=== PATIENT | female | born 1960 | race Caucasian/White ===

== ENCOUNTER → 2017-11-28 14:16 | Outpatient (CLI) | payer MEDICAID, SELFPAY ==
[2017-11-28 17:06] LABS: Absolute Lymphocyte Count 3.31 X10^3/ul (0.83-4.51); Absolute Neutrophil Count 3.1 X10^3/uL (2.0-7.7); Basophil# 0.03 X10^3/uL; Basophil% 0.4 % (0-1); Eosinophil# 0.22 X10^3/uL; Hematocrit 43.7 % (37-47); Hemoglobin 14.7 g/dl (12.0-15.0); Lymphocyte # 3.31 X10^3/ul (4.0); Lymphocyte % 45.3 % (19-41); Mean Corp Hgb Conc 33.6 g/gl (32-36); Mean Corpuscular Hgb 32.7 pg (27.0-32.0); Mean Corpuscular Volume 97.1 fL (81-99); Mean Platelet Vol. 10.7 fl (6.2-12.0); Monocyte# 0.62 X10^3/uL; Monocyte% 8.5 % (0-10); Neutrophil # 3.11 X10^3/uL (2.7-7.7); Neutrophil % 42.5 % (47-70); Platelet Count 229 K/mm3 (150-450); RBC Distribution Width SD 45.5 fl (35.1-43.9); White Blood Count 7.3 K/mm3 (4.4-11.0)
[2017-11-28 17:12] LABS: POSITIVE COUNT NO; POSITIVE DIFFERENTIAL NO; POSITIVE MORPHOLOGY NO
[2017-11-28 17:15] LABS: ALB/GLOB Ratio 0.8 RATIO (0.9-2.4); AST(SGOT) 70 U/L (15-37); Alanine Aminotransfer ALT/SGPT 69 U/L (12-78); Albumin, Serum 3.4 g/dL (3.4-5.0); Alkaline Phosphatase 135 U/L (45-117); Anion Gap 8 (5-15); BUN 6 mg/dL (7-18); BUN/Creat Ratio 9.2 RATIO (10-20); Calcium,Total 8.9 mg/dL (8.5-10.1); Chloride 105 mmol/L (98-107); Creatinine, Serum 0.65 mg/dL (0.55-1.02); EST Glomerular Filtration Rate 100 mL/min (>60); Est Glom Filt Rate - Afr Amer 121 mL/min (>60); Glucose 117 mg/dL (70-110); Potassium 3.6 mmol/L (3.5-5.1); Protein, Total 7.4 g/dL (6.4-8.2); Sodium Level 140 mmol/L (136-145); Thyroid Stim Hormone (TSH) 1.51 uIU/mL (0.358-3.74)
== END ==
PROVIDERS: Family Provider Family Medicine Geriatric Medicine; PCP Family Medicine Geriatric Medicine; Visit Provider Family Medicine Geriatric Medicine
DX: R53.83 Other fatigue (principal); E55.9 Vitamin D deficiency, unspecified; Z13.89 Encounter for screening for other disorder
CPT/HCPCS: 36415; 80053; 84443; 85025

== ENCOUNTER → 2017-12-19 16:09 | Outpatient (CLI) | payer MEDICAID, SELFPAY ==
[2017-12-19 16:47] LABS: Absolute Lymphocyte Count 3.87 X10^3/ul (0.83-4.51); Absolute Neutrophil Count 5.3 X10^3/uL (2.0-7.7); Basophil# 0.01 X10^3/uL; Basophil% 0.1 % (0-1); Eosinophil# 0.16 X10^3/uL; Eosinophils% 1.6 % (0-5); Hematocrit 39.4 % (37-47); Hemoglobin 13.1 g/dl (12.0-15.0); Lymphocyte # 3.87 X10^3/ul (4.0); Lymphocyte % 38.1 % (19-41); Mean Corp Hgb Conc 33.2 g/gl (32-36); Mean Corpuscular Hgb 31.8 pg (27.0-32.0); Mean Corpuscular Volume 95.6 fL (81-99); Mean Platelet Vol. 10.2 fl (6.2-12.0); Monocyte# 0.85 X10^3/uL; Monocyte% 8.4 % (0-10); Neutrophil # 5.25 X10^3/uL (2.7-7.7); Neutrophil % 51.7 % (47-70); Platelet Count 211 K/mm3 (150-450); RBC Distribution Width CV 12.7 % (11.6-14.6); RBC Distribution Width SD 43.5 fl (35.1-43.9); Red Blood Count 4.12 M/mm3 (4.2-5.4); White Blood Count 10.2 K/mm3 (4.4-11.0)
[2017-12-19 16:49] LABS: POSITIVE COUNT NO; POSITIVE DIFFERENTIAL NO; POSITIVE MORPHOLOGY NO
[2017-12-19 17:35] LABS: ALB/GLOB Ratio 0.8 RATIO (0.9-2.4); AST(SGOT) 64 U/L (15-37); Alanine Aminotransfer ALT/SGPT 59 U/L (13-56); Albumin, Serum 2.9 g/dL (3.2-5.0); Alkaline Phosphatase 119 U/L (45-117); Anion Gap 9 (5-15); BUN 14 mg/dL (7-18); BUN/Creat Ratio 11.5 RATIO (10-20); Calcium,Total 7.5 mg/dL (8.5-10.1); Chloride 104 mmol/L (98-107); Creatinine, Serum 1.22 mg/dL (0.55-1.02); EST Glomerular Filtration Rate 49 mL/min (>60); Est Glom Filt Rate - Afr Amer 59 mL/min (>60); Globulin 3.7 g/dL (2.2-4.2); Glucose 108 mg/dL (74-106); Potassium 3.7 mmol/L (3.5-5.1); Protein, Total 6.6 g/dL (6.4-8.2); Sodium Level 138 mmol/L (136-145); Thyroid Stim Hormone (TSH) 1.89 uIU/mL (0.358-3.74)
[2017-12-22 12:57] LABS: Hep C Antibodies 1.4 s/co ratio (0.0-0.9)
== END ==
PROVIDERS: Family Provider Family Medicine Geriatric Medicine; PCP Family Medicine Geriatric Medicine; Visit Provider Family Medicine Geriatric Medicine
DX: I95.9 Hypotension, unspecified (principal); Z13.89 Encounter for screening for other disorder; N39.0 Urinary tract infection, site not specified
CPT/HCPCS: 36415; 80053; 84443; 85025; 86803; 87086; 87088

== ENCOUNTER → 2017-12-19 17:43 | Outpatient (CLI) | payer MEDICAID, SELFPAY | PROVIDERS: Family Provider Family Medicine Geriatric Medicine; PCP Family Medicine Geriatric Medicine; Visit Provider Family Medicine Geriatric Medicine | DX: N39.0 Urinary tract infection, site not specified (principal) | CPT/HCPCS: 87086 ==

== ENCOUNTER → 2018-03-19 16:46 | Outpatient (CLI) | payer MEDICAID, SELFPAY | PROVIDERS: Family Provider Family Medicine Geriatric Medicine; PCP Family Medicine Geriatric Medicine; Visit Provider Family Medicine Geriatric Medicine | DX: B19.20 Unspecified viral hepatitis C without hepatic coma (principal) | CPT/HCPCS: 36415 ==

== ENCOUNTER → 2018-05-14 16:41 | Outpatient (CLI) | payer MEDICAID, SELFPAY | PROVIDERS: Family Provider Family Medicine Geriatric Medicine; PCP Family Medicine Geriatric Medicine; Visit Provider Psychiatry & Neurology Psychiatry | DX: F11.20 Opioid dependence, uncomplicated (principal) ==

== ENCOUNTER → 2018-06-10 12:22 | Outpatient (CLI) | payer MEDICAID, SELFPAY ==
[2018-06-10 14:27] LABS: Amphetamine Urine VISTA NEGATIVE (<1000 ng/mL); Barbiturate Urine VISTA NEGATIVE (< 200 ng/mL); Benzodiazepine Urine VISTA NEGATIVE (< 200 ng/mL); Cocaine Urine VISTA NEGATIVE (< 300 ng/mL); Ecstacy Urine VISTA NEGATIVE (< 500 ng/mL); Methadone Urine VISTA NEGATIVE (< 300 ng/mL); PCP Urine VISTA NEGATIVE (< 25 ng/mL); THC Urine VISTA NEGATIVE (< 50 ng/mL); Vista UDS pH Range 7
== END ==
PROVIDERS: Family Provider Family Medicine Geriatric Medicine; PCP Family Medicine Geriatric Medicine; Visit Provider Psychiatry & Neurology Psychiatry
DX: F11.20 Opioid dependence, uncomplicated (principal)
CPT/HCPCS: 36415; 80307

== ENCOUNTER → 2018-07-29 14:04 | Outpatient (CLI) | payer MEDICAID, SELFPAY | PROVIDERS: Family Provider Family Medicine Geriatric Medicine; PCP Family Medicine Geriatric Medicine; Referring Provider Nurse Practitioner Acute Care; Visit Provider Nurse Practitioner Acute Care | DX: J44.9 Chronic obstructive pulmonary disease, unspecified (principal) | CPT/HCPCS: 87070; 87077; 87186; 87205 ==

== ENCOUNTER → 2018-08-05 15:47 | Outpatient (CLI) | payer MEDICAID, SELFPAY ==
--- OUTSIDE RECORDS SUMMARY | 2018-05-28 15:26 | XMS RPT_ITS ---
:1960 Author Organization OHIP Support Name Relationship Address Phone D Unavailable Unavailable April Unavailable [address] + [place] [address] D Unavailable Unavailable April Unavailable [address] + [place] [address] TIFFANY PEÑA Unavailable [address] [place] [address] April Unavailable Unavailable + D Unavailable Unavailable April Unavailable [address] + [place] [address] TIFFANY PEÑA Unavailable [address] [place] [address] April Unavailable Unavailable + D Unavailable Unavailable April Unavailable [address] + [place] [address] D Unavailable Unavailable April Unavailable [address] + [place] [address] D Unavailable Unavailable April Unavailable [address] + [place] [address] D Unavailable Unavailable Unavailable April Unavailable [address] + [place] [address] TIFFANY PEÑA Unavailable [address] [place] [address] April Unavailable Unavailable + D Unavailable Unavailable Unavailable April Unavailable [address] + [place] [address] April Unavailable [address] + [place] [address] UE Unavailable Unavailable Unavailable JENITIFFANY MAGUIRE Unavailable [address] [place] [address] April Unavailable Unavailable + April Unavailable [address] + [place] [address] UE Unavailable Unavailable Unavailable Care Team Providers Name Role Phone NO, DOCTOR ON Referring Unavailable NO, DOCTOR ON Consulting Unavailable KIA BURNETT MD Admitting Unavailable KIA BURNETT MD Attending Unavailable KIA BURNETT MD Primary Care Unavailable ALLAN, DR WALLACE Suarez Admitting Unavailable ALLAN, DR WALLACE Suarez Attending Unavailable ALLAN, DR WALLACE Suarez Primary Care Unavailable KAVON CAROLINA MD Referring Unavailable KAVON CAROLINA MD Consulting Unavailable PROVIDER, UNKNOWN Consulting Unavailable PROVIDER, UNKNOWN Consulting Unavailable [facility] Unavailable [facility] Attending Unavailable [facility] Primary Care Unavailable NO, DOCTOR ON Consulting Unavailable ALLAN, DR WALLACE Suarez Admitting Unavailable ALLAN, DR WALLACE Suarez Attending Unavailable ALLAN, DR WALLACE Suarez Primary Care Unavailable KAVON CAROLINA MD Consulting Unavailable KAVON CAROLINA MD Referring Unavailable PROVIDER, UNKNOWN Consulting Unavailable PROVIDER, UNKNOWN Consulting Unavailable Ginny Wilfredo Attending Unavailable Ge, Kavon Chi Primary Care Unavailable Ginny, Wilfredo Attending Unavailable Ge, Kavon Chi Primary Care Unavailable Ginny, Wilfredo Referring Unavailable Ge, Kavon Chi Attending Unavailable Ge, Kavon Chi Primary Care Unavailable Eg, Kavon Chi Attending Unavailable Ge, Kavon Chi Primary Care Unavailable Ge, Kavon Chi Referring Unavailable Ge, Kavon Chi Attending Unavailable Ge, Kavon Chi Primary Care Unavailable Ge, Kavon Chi Attending Unavailable Ge, Kavon Chi Primary Care Unavailable Ge, Kavon Chi Attending Unavailable Ge, Kavon Chi Referring Unavailable Ge, Kavon Chi Primary Care Unavailable Ge, Kavon Chi Attending Unavailable Ge, Kavon Chi Primary Care Unavailable Ginny, Wilfredo Attending Unavailable Ge, Kavon Chi Primary Care Unavailable Ginny, Wilfredo Referring Unavailable Ge, Kavon Chi Attending Unavailable Ge, Kavon Chi Primary Care Unavailable PROBLEMS PROBLEMS DATE TYPE CONDITION / CODE ATTENDING STATUS SOURCE 05/19/2018 Unknown F11.20 - Opioid Ginny, Wilfredo Active [facility] dependence, Community uncomplicated / Hospital F11.20(ICD-10) Repository 04/17/2018 Unknown B19.20 - Ge, Kavon Chi Active [place] Unspecified viral Community hepatitis C without Hospital hepatic coma / Repository B19.20(ICD-10) 12/20/2017 Unknown N39.0 - Urinary Ge, Kavon Chi Active [place] tract infection, Community site not specified Hospital / N39.0(ICD-10) Repository 12/19/2017 Unknown I95.9 - Ge, Kavon Chi Active [facility] Hypotension, Community unspecified / Hospital I95.9(ICD-10) Repository 12/19/2017 Unknown Z13.89 - Encounter Ge, Kavon Chi Active [place] for screening for Community other disorder / Hospital Z13.89(ICD-10) Repository 06/25/2017 Unknown ACUTE KIDNEY Ge, Kavon Chi Active [facility] FAILURE, Community UNSPECIFIED / Hospital N17.9(ICD-10) Repository 06/14/2017 Admitting Sepsis, unspecified [place], KIA Samuel Diagnosis organism / [facility] A419(ICD-10) Hospital Repository 06/14/2017 Principle Sepsis, unspecified [place], KIA Samuel Diagnosis organism / [facility] A419(ICD-10) Hospital Repository 06/14/2017 Secondary Pneumonia, [place], KIA Active Nadir Samuel Diagnosis unspecified [facility] organism / Hospital J189(ICD-10) Repository 06/14/2017 Secondary Severe sepsis [place], KIA Samuel Diagnosis without septic [facility] shock / Hospital R6520(ICD-10) Repository 06/14/2017 Secondary Acidosis / [place], KIA Active Nadir Samuel Diagnosis E872(ICD-10) [facility] Hospital Repository 06/14/2017 Secondary Rheumatoid [place], KIA Active Nadir Samuel Diagnosis arthritis, [facility] unspecified / Hospital M069(ICD-10) Repository 06/14/2017 Secondary Other specified [place], KIA Samuel Diagnosis anxiety disorders / [facility] F418(ICD-10) Hospital Repository 06/14/2017 Secondary Chronic obstructive [place], KIA Samuel Diagnosis pulmonary disease [facility] with (acute) Hospital exacerbation / Repository J441(ICD-10) 08/26/2017 Unknown OPIOID DEPENDENCE, Wilfredo Gross Active [place] UNCOMPLICATED / Community F11.20(ICD-10) Hospital Repository PROCEDURES PROCEDURES No Procedure Records FoundRESULTS RESULTS EMERGENCY REPORT Observed: 05/23/2018 Status: F Source: NADIR FOSTERJONAS 9:53 PM [facility] EMERGENCY ROOM REPORT NAME ACCOUNT SEX AGE ADMIT DISCHARGE PT MED. RECORD# NUMBER DATE DATE TYPE JENI, [id number] F 57 05/12/18 05/12/18 3 VERO Hunt [id number] ROOM: ER DATE OF : 1960 DICTATING PHYSICIAN: Wallace Caicedo CHIEF COMPLAINT/HISTORY OF PRESENT ILLNESS: The patient comes in complaining of right arm and shoulder pain for 6 days. She strained it when she was grabbing a rug and she had a burning pain. She has a history of pulmonary embolism. She has had no recent travel, trauma or surgeries. She denies any chest pain or shortness of breath. I do not believe she has a pulmonary embolism. PAST MEDICAL HISTORY: She has a history of depression and anxiety. She has COPD. She is in pain management. PAST SURGICAL HISTORY: Hysterectomy, gallbladder surgery, carpal tunnel syndrome, upper lobe of lung removed. SOCIAL HISTORY: She does smoke. She denies alcohol use. REVIEW OF SYSTEMS: Eight systems reviewed and negative except as mentioned above. PHYSICAL EXAMINATION: She is an awake, alert and oriented female in no acute distress. She is afebrile, blood pressure 118/103, pulse 117 , respirations 20, pulse ox 94% on room air. Head is normocephalic, atraumatic. Eyes: Pupils are equal, round, and reactive to light. Extraocular muscles are intact. Nares are patent. Throat has good oral moisture. Uvula is midline. Neck is supple without petechiae or rash. Heart rate is regular without murmur. S1 equals S2, and no S3 or S4 appreciated. Lungs are clear to auscultation bilaterally. No rales, rhonchi or retractions. Abdomen is soft and nontender, nondistended. Skin is warm and dry. The patient has full range of motion of the right shoulder. She has generalized tenderness. Whenever she extends her shoulder, I think she has strain of her shoulder. She has no swelling, ecchymosis or bruising. EMERGENCY DEPARTMENT COURSE AND TREATMENT: I do not believe she has pulmonary embolism. I did review OARRS , which is extensive. She takes Suboxone. DIAGNOSIS: Acute right shoulder strain. PLAN/DISPOSITION: I was going to write her for Ultra, but she says that she cannot take that, but she can take Percocet. I will give her two Percocet and she will be Page 1 of 2 VERO PEÑA Emergency Room Report discharged in stable condition. She has a sling and was told to use the sling and do range of motion exercises, 10 reps every hour. They are demonstrated. Dictated By: Wallace Caicedo DO 05/13/18 01:05 JOB #: [id number] Transcribed By: maria dolores 06:38 Electronically signed by: INOCENCIA Caicedo D.O. 05/23/18 21:53 Page 2 of 2 V[place] PEÑ[place] Emergency Room Report URINE DRUG SCREEN Collected: 05/14/2018 Status: P Source: [place] (VISTA) 4:43 PM [facility] REPOSITORY Order Comment: List of Drugs Taken or Suspected? UNK TYPE CODE TESTS RESULT OUT OF RANGE REFERENCE UNITS LAB L505.0075 Normal TO BE CONFIRMED Result Comment: CONFIRMATORY TESTING FOR ALL POSITIVE URINE DRUG SCREENRESULTS WILL ONLY BE SENT OUT UPON PHYSICIAN ORDER.VISTA Urine Drug Screen methods provide only preliminaryanalytical test results. A more specific alternate chemicalmethod must be used in order to obtain a confirmedanalytical result. Gas chromatography/mass spectrometery(GC/MS) is the preferred confirmatory method. Clinicalconsideration and professional judgement should be appliedto any drug of abuse test result, particularly whenpreliminary positive results are used.URINE TCA TESTING MUST BE ORDERED SEPARATELY. USE TESTMNEMONIC: UTCA Performed By: #### L505.5000 ####[facility] [address] [place], [address] MISCELLANEOUS LAB Collected: 03/19/2018 Status: F Source: [place] PROCEDURE 4:52 PM [facility] REPOSITORY Order Comment: Comments: [id number],SERUM,FROZENTest(s) Ordered: [id number],SERUM,FROZEN TYPE CODE TESTS RESULT OUT OF RANGE REFERENCE UNITS LAB L801.1541 Normal [facility] LAB TEST Result Comment: TEST RESULT UNITS REFERENCE INTERVALHCV RNA by PCR, Qn Rfx GenoHepatitis C Quantitation HCV Not Detected IU/mLHCV log10 Unable to calculate result since non-numeric resultobtained for component test.Test Information: The quantitative range of this assay is 15 IU/mL to 100million IU/mL.HCV Genotype Not indicated TESTING PERFORMED AT [facility]. ORIGINAL REPORT ON FILE IN LAB CONTAINS ADDITIONAL TEST SITE INFORMATION. Performed By: #### L801.1541 ####[facility] [address] [facility] [place], [address] Observed: 12/19/2017 Status: F Source: [place] CULTURE, URINE 5:44 PM [facility] REPOSITORY Urine CultureBelow infection level. ORGANISM 1: GPC Poss Enterococcus spColony Count 1000-10,000 Performed By: #### M100.0650 ####[facility] [address] [facility] [place], [address] CBC W/DIFF, AUTOMATED Collected: 12/19/2017 Status: F Source: [place] 4:10 PM [facility] REPOSITORY TYPE CODE TESTS RESULT OUT OF RANGE REFERENCE UNITS LAB L100.1000 Normal 4.4-11.0 K/mm3 WBC 10.2 LAB L100.1200 Low 4.2-5.4 M/mm3 RBC 4.12 LAB L100.1300 Normal 12.0-15.0 g/dl HGB 13.1 LAB L100.1400 Normal 37-47 % HCT 39.4 LAB L100.1500 Normal 81-99 fL MCV 95.6 LAB L100.1600 Normal 27.0-32.0 pg MCH 31.8 LAB L100.1700 Normal 32-36 g/gl MCHC 33.2 LAB L100.1810 Normal 11.6-14.6 % RDW 12.7 CV LAB L100.1820 Normal 35.1-43.9 fl RDW 43.5 SD LAB L100.1900 Normal 150-450 K/mm3 PLT 211 LAB L100.2000 Normal 6.2-12.0 fl MPV 10.2 LAB L100.2100 Normal 47-70 % NEUT% 51.7 LAB L100.2200 Normal 19-41 % LY% 38.1 LAB L100.2300 Normal 0-10 % MONO% 8.4 LAB L100.2400 Normal 0-5 % EO% 1.6 LAB L100.2500 Normal 0-1 % BASO% 0.1 LAB L100.2550 Normal 0.0-0.9 % IM 0.100 GRAN % Result Comment: IG% - Immature Granulocytes (promyelocytes, myelocytes andmetamyelocytes) > 1% indicates that a LEFT SHIFT is Present. LAB L100.2620 Normal 2.0-7.7 X10 3/uL Absolute Neut 5.3 LAB L100.2720 Normal 0.83-4.51 X10 3/ul Absolute Lymph 3.87 Performed By: #### L100.0100 ####[facility] [address] [place], [address] COMPREHENSIVE METABOLIC Collected: 12/19/2017 Status: F Source: [facility] 4:10 PM [facility] REPOSITORY TYPE CODE TESTS RESULT OUT OF RANGE REFERENCE UNITS LAB L501.0100 High 74-106 mg/dL GLU 108 Result Comment: Fasting Glucose result from 100 to 125 mg/dLsuggests IMPAIRED HOMEOSTASIS per A.D.A. criteria.Please note revised GLUCOSE reference range enpxmpdsv48/02/2018. LAB L501.1000 Normal 7-18 mg/dL BUN 14 LAB L501.1100 High 0.55-1.02 mg/dL CREAT,SERUM 1.22 Result Comment: The validity of the calculated GFR AND GFRAA in patients over70 years has not been determined. Clinical correlation isessential. LAB L501.1110 Low >60 mL/min EST GFR 49 Result Comment: Non- GFR Calc LAB L501.1115 Low >60 mL/min EST GFR - AA 59 Result Comment: GFR Calc LAB L501.1300 Normal 10-20 RATIO BUN/CRE 11.5 LAB L501.1500 Normal 6.4-8.2 g/dL T PROT 6.6 LAB L501.1800 Low 3.2-5.0 g/dL ALB 2.9 LAB L501.1950 Normal 2.2-4.2 g/dL GLOB 3.7 LAB L501.2000 Low 0.9-2.4 RATIO A/G 0.8 LAB L501.2200 Low 8.5-10.1 mg/dL CA 7.5 LAB L501.4100 High 15-37 U/L AST 64 LAB L501.4305 High 45-117 U/L ALK P 119 LAB L501.4405 High 13-56 U/L ALT 59 Result Comment: Please note revised ALT reference range rakhfyfrc33/28/2018. LAB L501.4600 Normal 0.20-1.00 mg/dL T BILI 0.30 LAB L501.5300 Normal 136-145 mmol/L NA 138 LAB L501.5600 Normal 3.5-5.1 mmol/L K 3.7 LAB L501.5900 Normal 98-107 mmol/L CL 104 LAB L501.6100 Normal 21.0-32.0 mmol/L CO2 25.0 LAB L501.6200 Normal 5-15 GAP 9 Performed By: #### L500.4050, L501.9520 ####[facility] [address] [place], [place], [id number] THYROID STIM HORMONE Collected: 12/19/2017 Status: F Source: [place] (TSH) 4:10 PM [facility] REPOSITORY TYPE CODE TESTS RESULT OUT OF RANGE REFERENCE UNITS LAB L501.9520 Normal 0.358-3.74 uIU/mL TSH 1.89 Performed By: #### L500.4050, L501.9520 ####[facility] [address] [place], [place], [address] HEPATITIS C ANTIBODIES Collected: 12/19/2017 Status: F Source: [place] 4:10 PM [facility] REPOSITORY TYPE CODE TESTS RESULT OUT OF RANGE REFERENCE UNITS LAB L3100.0650 High 0.0-0.9 s/co ratio HEP C 1.4 AB Result Comment: Negative: < 0.8 Indeterminate: 0.8 - 0.9 Positive: > 0.9 The CDC recommends that a positive HCV antibody result be followed up with a HCV Nucleic Acid Amplification test (363150) .Performed at: - [facility] [address] [id number] Director: Henriuqe Sellers PhD, Phone: [phone] Performed By: #### L3100.0625 ####[facility] (refer to report for specific site)refer to report for address and phone number CBC W/DIFF, AUTOMATED Collected: 11/28/2017 Status: F Source: [place] 2:17 PM [facility] REPOSITORY TYPE CODE TESTS RESULT OUT OF RANGE REFERENCE UNITS LAB L100.1000 Normal 4.4-11.0 K/mm3 WBC 7.3 LAB L100.1200 Normal 4.2-5.4 M/mm3 RBC 4.50 LAB L100.1300 Normal 12.0-15.0 g/dl HGB 14.7 LAB L100.1400 Normal 37-47 % HCT 43.7 LAB L100.1500 Normal 81-99 fL MCV 97.1 LAB L100.1600 High 27.0-32.0 pg MCH 32.7 LAB L100.1700 Normal 32-36 g/gl MCHC 33.6 LAB L100.1810 Normal 11.6-14.6 % RDW 13.0 CV LAB L100.1820 High 35.1-43.9 fl RDW 45.5 SD LAB L100.1900 Normal 150-450 K/mm3 PLT 229 LAB L100.2000 Normal 6.2-12.0 fl MPV 10.7 LAB L100.2100 Low 47-70 % NEUT% 42.5 LAB L100.2200 High 19-41 % LY% 45.3 LAB L100.2300 Normal 0-10 % MONO% 8.5 LAB L100.2400 Normal 0-5 % EO% 3.0 LAB L100.2500 Normal 0-1 % BASO% 0.4 LAB L100.2550 Normal 0.0-0.9 % IM 0.300 GRAN % Result Comment: IG% - Immature Granulocytes (promyelocytes, myelocytes andmetamyelocytes) > 1% indicates that a LEFT SHIFT is Present. LAB L100.2620 Normal 2.0-7.7 X10 3/uL Absolute Neut 3.1 LAB L100.2720 Normal 0.83-4.51 X10 3/ul Absolute Lymph 3.31 Performed By: #### L100.0100 ####[facility] [address] [place], [address] COMPREHENSIVE METABOLIC Collected: 11/28/2017 Status: F Source: [place] BOWERS 2:17 PM [facility] REPOSITORY TYPE CODE TESTS RESULT OUT OF RANGE REFERENCE UNITS LAB L501.0100 High 70-110 mg/dL GLU 117 Result Comment: Fasting Glucose result from 110 to <126 mg/dLsuggests IMPAIRED HOMEOSTASIS per A.D.A. criteria. LAB L501.1000 Low 7-18 mg/dL BUN 6 LAB L501.1100 Normal 0.55-1.02 mg/dL CREAT,SERUM 0.65 Result Comment: The validity of the calculated GFR AND GFRAA in patients over70 years has not been determined. Clinical correlation isessential. LAB L501.1110 Normal >60 mL/min EST GFR 100 Result Comment: Non- GFR Calc LAB L501.1115 Normal >60 mL/min EST GFR - 121 AA Result Comment: GFR Calc LAB L501.1300 Low 10-20 RATIO BUN/CRE 9.2 LAB L501.1500 Normal 6.4-8.2 g/dL T PROT 7.4 LAB L501.1800 Normal 3.4-5.0 g/dL ALB 3.4 Result Comment: Please note revised Albumin AND Globulin reference rangeeffective 2017. LAB L501.1950 Normal 2.2-4.2 g/dL GLOB 4.0 LAB L501.2000 Low 0.9-2.4 RATIO A/G 0.8 LAB L501.2200 Normal 8.5-10.1 mg/dL CA 8.9 LAB L501.4100 High 15-37 U/L AST 70 LAB L501.4305 High 45-117 U/L ALK P 135 LAB L501.4405 Normal 12-78 U/L ALT 69 LAB L501.4600 Normal 0.20-1.00 mg/dL T BILI 0.20 LAB L501.5300 Normal 136-145 mmol/L NA 140 LAB L501.5600 Normal 3.5-5.1 mmol/L K 3.6 LAB L501.5900 Normal 98-107 mmol/L CL 105 LAB L501.6100 Normal 21.0-32.0 mmol/L CO2 27.0 LAB L501.6200 Normal 5-15 GAP 8 Performed By: #### L500.4050, L501.9520 ####[facility] [address] [place], [address] THYROID STIM HORMONE Collected: 11/28/2017 Status: F Source: [place] (TSH) 2:17 PM [facility] REPOSITORY TYPE CODE TESTS RESULT OUT OF RANGE REFERENCE UNITS LAB L501.9520 Normal 0.358-3.74 uIU/mL TSH 1.51 Performed By: #### L500.4050, L501.9520 ####[facility] [address] [place], [address] KIDNEY AND BLADDER Observed: 11/22/2017 Status: F Source: [place] 4:43 PM [facility] REPOSITORY [facility] [address] [place], [place] [address] and BladderMR#: [id number] Acct: [id number]: AURORA PEÑAKwesi Hunt Rep #: [id number]: 1960 F 56 From: Sami Jones MDPCP: Kavon Carolina MD, Chi Status: REG CLIStudy: Kidney and Bladder Date of Exam: Exam# [id number] Ordering Dr: Kavon Carolina. MDSTUDY: RENAL ULTRASOUND - COMPLETEREASON FOR EXAM: Female, 56 years old. Urinary retentionTECHNIQUE: Ultrasound evaluation of the kidneys was performed withreal-time and static mendez-scale imaging.COMPARISON: CT June 27, 2016 FINDINGS:RIGHT KIDNEY: Normal location of the right kidney, which is normal insize. The right kidney measures 11.4 x 4.7 x 5.4 cm. There is a normalcortex of the right kidney. The renal cortex measures 1.8 cm. There is noright renal mass or cyst. 11 mm calculus of the right kidney. There is noright hydronephrosis.DISTAL RIGHT URETER: There is non-visualization of the distal rightureter. There is no demonstrated right ureterovesical junction calculus.There is a visualized right ureteral jet.LEFT KIDNEY: Normal location of the left kidney, which is normal in size.The left kidney measures 10.2 x 5.1 x 5.6 cm. There is a normal cortex ofthe left kidney. The renal cortex measures 1.9 cm. There is no left renalmass or cyst. Clustered subcentimeter calcifications of the kidney. Thereis no left hydronephrosis.DISTAL LEFT URETER: There is non-visualization of the distal left ureter.There is no demonstrated left ureterovesical junction calculus. There is avisualized left ureteral jet.BLADDER: The distended urinary bladder has a volume of 152 ml. The emptyurinary bladder has a volume of 13 ml. There is a normal wall thicknessof the distended urinary bladder. There is no demonstrated mass withinthe urinary bladder. There are no demonstrated bladder calculi. ORDER #: [id number] US/Kidney and BladderIMPRESSION:There are bilateral renal calculi. There is no evidence for an obstruction.There is no hydronephrosis.Electronically Signed:Sami Jones MD at 20:27 ESTTel , Service support , HP: Kavon Carolina MD Billet Heater:Signed EMERGENCY DEPARTMENT Observed: 11/09/2017 Status: F [facility]15 AM [facility] EMERGENCY DEPARTMENT SUMMARY NAME NUMBER SEX AGE ADMIT DISC TYPE MED.RECORD# JENI Hunt [id number] F 56 11/06/17 E.R. [id number] ROOM:- DATE OF :1960 PHYSICIAN NO.:[id number] PHYSICIAN NAME:INOCENCIA Caicedo D.O. PHYSICIAN:GE JACOBSON MD HISTORY OF PRESENT ILLNESS: The patient came in. The patient earlier today was scared. She thought she saw somebody in her house. However, it was windy and the way the lights were moving she thought she saw someone so she got scared and called the police. When the police arrived, she realized there was nobody there. She does have severe anxiety, and she became very anxious and requested to go to the hospital. She also complained of some right ear pain and was anxious when she came in. When she came in, she was awake, alert and oriented. Her thought process was linear and goal- directed. She was anxious. She did take two 0.5 mg Ativan tablets prior to arrival, and she comes to the Emergency Department. PAST MEDICAL HISTORY: She does have a history of COPD, for which she takes home oxygen. She has a history of depression, which she has been hospitalized for, PTSD, and questionable bipolar disorder. She says she does not, and her daughter says she does. She also has a history of sepsis and pulmonary embolism. PAST SURGICAL HISTORY: She has a history of carpal tunnel surgery, appendectomy, cholecystectomy and hysterectomy. SOCIAL HISTORY: She does smoke. She denies alcohol use. REVIEW OF SYSTEMS: Ten systems were reviewed and negative except as mentioned above. PHYSICAL EXAMINATION: She is afebrile. Blood pressure 149/ 95, pulse 117, respirations 20, and pulse oximetry 95% on room air. Head is normocephalic, atraumatic. Eyes: Pupils are equal, round and reactive to light. Extraocular muscles are intact. Nares are patent. Throat has adequate oral moisture. Uvula is midline. Neck is supple without petechiae or rash. Heart without murmur. S1 equal to S2. No S3 or S4 appreciated. Lungs are clear to auscultation bilaterally. No rales, rhonchi or retractions. Abdomen is soft, nontender and nondistended. Skin is warm and dry. The patient's right ear was unremarkable to my interpretation. EMERGENCY DEPARTMENT COURSE AND TREATMENT: While she was here, she realized there was nobody there. Her daughter came in and was concerned because she was saying things that were not true, but now at this time she is not delusional. She is not homicidal. She is not suicidal. She says she will come back if there are any issues. Her daughter is here and is going to stay with her. Her daughter appears very kind and caring and concerned about her and states she would bring her back. I did want to get a blood gas and get some generalized bloodwork on her, but she refused this. At this time, I do not think I can pink slip her because she is not homicidal or suicidal, and she seems to be able to make rational decisions. She had a 3 on her SAD form, but actually it should be a 2 because she is . [facility]. She has an appointment next Saturday. DIAGNOSES: 1. Delusional episode, cause not clear - improved at this time. She does have the issue of depression. She is not homicidal or suicidal. 2. Ear pain, cause not clear. PLAN/DISPOSITION: She will be discharged in stable condition. D: Wallace Caicedo DO TD: 00:39 JOB #: [id number] Transcribed by: shannon 11/06/2017 15: 56 DD: DT: JOB #: ELECTRONICALLY SIGNED BY: INOCENCIA Caicedo D.O. 11/09/17 03:15 Transcribed by: MARIA DOLORES 11/06/17 16:57 URINE DRUG SCREEN Collected: 10/17/2017 Status: F Source: [place] (VISTA) 2:12 PM [facility] REPOSITORY Order Comment: Comments: [id number] BUPRENORPHINEList of Drugs Taken or Suspected? UNK TYPE CODE TESTS RESULT OUT OF RANGE REFERENCE UNITS LAB L505.0075 Normal TO BE CONFIRMED Result Comment: CONFIRMATORY TESTING FOR ALL POSITIVE URINE DRUG SCREENRESULTS WILL ONLY BE SENT OUT UPON PHYSICIAN ORDER.VISTA Urine Drug Screen methods provide only preliminaryanalytical test results. A more specific alternate chemicalmethod must be used in order to obtain a confirmedanalytical result. Gas chromatography/mass spectrometery(GC/MS) is the preferred confirmatory method. Clinicalconsideration and professional judgement should be appliedto any drug of abuse test result, particularly whenpreliminary positive results are used.URINE TCA TESTING MUST BE ORDERED SEPARATELY. USE TESTMNEMONIC: [facility] LAB L505.5005 Normal VISTA UDS PH 5 LAB L505.5015 Normal <1000 AMPHETAMINES NEGATIVE ng/mL LAB L505.5025 Normal < 200 BARBITIURATES NEGATIVE ng/mL LAB L505.5035 Normal < 200 BENZODIAZIPINE NEGATIVE ng/mL LAB L505.5045 Normal < 300 COCAINE NEGATIVE ng/mL LAB L505.5055 Normal < 500 ECSTACY NEGATIVE ng/mL LAB L505.5065 Normal < 300 METHADONE NEGATIVE ng/mL LAB L505.5075 Normal < 300 OPIATES NEGATIVE ng/mL LAB L505.5085 Normal < 25 PCP NEGATIVE ng/mL LAB L505.5095 Normal < 50 THC NEGATIVE ng/mL Performed By: #### L505.5000 ####[facility] [id number] [place], [place], [id number] DRUG SCR,NA BUPRO / Collected: 10/17/2017 Status: F Source: SAUNDRA FRIENDS 2:12 PM [facility] REPOSITORY TYPE CODE TESTS RESULT OUT OF REFERENCE UNITS RANGE LAB L3350.040 Normal 1 MCG/ML 0 CODEINE NEGATIVE LAB L3350.060 Normal 2 MCG/ML 0 HYDROCODONE NEGATIVE LAB L3350.070 Normal 2 MCG/ML 0 OXYCODONE NEGATIVE LAB L3350.080 Normal 2 MCG/ML 0 AMI/NORTRIPTYLI POSITIVE LAB L3350.085 Normal 2 MCG/ML 0 DEMEROL NEGATIVE LAB L3350.090 Normal 2 MCG/ML 0 DOXEPIN NEGATIVE LAB L3350.110 Normal 2 MCG/ML 0 METHADONE NEGATIVE LAB L3350.120 Normal 1 MCG/ML 0 PHENMETRAZINE NEGATIVE LAB L3350.130 Normal 1 MCG/ML 0 PHENOTHIAZINES NEGATIVE LAB L3350.140 Normal 0.2 MCG/ML 0 QUININE NEGATIVE LAB L3350.150 Normal 1 MCG/ML 0 TRAMADOL NEGATIVE LAB L3350.160 Normal 2 MCG/ML 0 HYDROXYZINE NEGATIVE LAB L3350.230 Normal 300 NG/ML 0 EMIT OPIATE NEGATIVE LAB L3350.240 Normal 1000 NG/ML 0 EMIT AMPHETAMIN NEGATIVE LAB L3350.250 Normal 300 NG/ML 0 EMIT COCAINE NEGATIVE LAB L3350.290 Normal 5 NG/ML NG/ML 0 EMIT BUPRO POSITIVE Result Comment: EIA BUPRENORPHINE WITH PANEL 270 ng/mL Cutoff: 5 ng/mL Performed By: #### L3350.0200 ####[facility] [id number] [place], [place], [address] DISCHARGE SUMMARY Observed: 06/19/2017 Status: F Source: NADIR SAMUEL 11:52 PM [facility] DISCHARGE SUMMARY NAME NUMBER SEX AGE ADMIT DISC TYPE MED.RECORD# VERO PEÑA [id number] F 56 06/14/2017 06/16/2017 I/P [id number] ROOM:310NM DATE OF :1960 PHYSICIAN NO.:[id number] PHYSICIAN NAME: PHYSICIAN:BRIANNE JORGE CNP SERVICE: Hospitalist, Dr. Burnett. ADMITTING DIAGNOSIS/REASON FOR ADMISSION: Shortness of breath, chronic obstructive pulmonary disease exacerbation. FINAL DIAGNOSES: 1. Acute exacerbation of chronic obstructive pulmonary disease. 2. Clinical community-acquired pneumonia. 3. Severe sepsis, resolved. 4. Leukocytosis, resolved. 5. Lactic acidosis, resolved. 6. Elevated transaminases. 7. Rheumatoid arthritis, an acute exacerbation. 8. Depression, anxiety. CONSULTATIONS AND PROCEDURES: None. HISTORY OF PRESENT ILLNESS: This is a pleasant 56-year-old female with a significant past medical history of COPD on continuous home O2 at 4 L per minute via nasal cannula. She does wear this continuously. The patient states that she has been in her normal state of health up until approximately 3 weeks ago. She recently moved and believes that her nebulizer and aerosol medications were accidentally thrown out in the move. Typically she uses her nebulizer 1 to 3 times per day. Subsequently, over the past few weeks she had noted increased shortness of breath, dyspnea upon exertion, increased sputum production, fatigue, fever, chills, which progressively worsened over the past 3 days. She denied chest pain, palpitations. No nausea, vomiting, abdominal pain , or diarrhea. She denied recent hospitalization, exposure to ill contacts, or recent antibiotic therapy. No recent travel. 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 However, she denied hemoptysis, chest pain, or palpitations. ED evaluation demonstrated a qSOFA score of 1 for tachypnea; however, she was tachycardic and had a significantly elevated lactate at 37.5. X-ray demonstrated no definitive infiltrate or consolidation; however, her clinical presentation does raise suspicion for community-acquired pneumonia. After multiple aerosols, IV corticosteroids, and IV fluid resuscitation, the patient experienced only mild improvement, therefore she was admitted for further management and evaluation. DISCHARGE PHYSICAL EXAMINATION: Vital signs: Temperature 98.4, blood pressure 101/60, heart rate 95, respiratory rate 16, pulse oximetry 97% on 4 L nasal cannula. Constitutional: Awake, alert, nontoxic in appearance, in no acute distress. Cardiovascular: Regular rate and rhythm. Normal S1 and S2. No gallops, murmurs , or rubs are appreciated. Respiratory: Symmetric with respiration, even and unlabored, clear to auscultation. No significant wheezes, rhonchi, or rales. She was slightly diminished, specifically in the posterior bases. Abdomen: Soft, nontender with active bowel sounds in all 4 quadrants. No hepatosplenomegaly. Extremities: Capillary refill is brisk. There is no clubbing, cyanosis, or edema. Calves are supple, nontender, with no palpable cords. Neurologic: No focal deficits, motor sensory is intact. She is alert and oriented x4. HOSPITAL COURSE: The patient was admitted on telemetry, serial troponins were obtained and all within normal limits. She was continued on IV azithromycin and Rocephin for presumed clinical community-acquired pneumonia. IV hydration for her acute kidney injury likely related to her lactic acidosis and aggressive pulmonary hygiene. The patient had significant improvement over the next 24 hours. She verbalized that she was at her baseline. Her tachycardia had resolved. She was maintaining adequate O2 saturation at her baseline home O2 requirements , which was 4 L. However, she continued to have elevated lactate at 29.3. Given this and the severity of her presentation in the ER, the patient was kept 1 further night for further monitoring, IV hydration, and repeat lactate. DISCHARGE SUMMARY VERO PEÑA [address] [place] [address] DISCHARGE SUMMARY NAME NUMBER SEX AGE ADMIT DISC TYPE MED.RECORD# VERO PEÑA [id number] F 56 06/14/2017 06/16/2017 I/P [id number] ROOM:310MO DATE OF :1960 PHYSICIAN NO.: [id number] PHYSICIAN NAME: PHYSICIAN:BRIANNE JORGE CNP Upon the date of discharge, the patient was hemodynamically stable, her lactate had normalized and was within normal limits at 11.3. Her leukocytosis and acute kidney injury had improved and she was at her baseline creatinine. She was able to maintain adequate pulse oximetry at 4 L nasal cannula, which is at her baseline at 97%. The patient will be converted to oral azithromycin to complete a 5-day course, as well as oral corticosteroids and bronchodilators. I will write her a new prescription for a nebulizer, as well as DuoNebs for home use. The plan of care was discussed extensively with the patient. She was given an opportunity to ask questions and all questions were answered to her satisfaction. She is amenable to the plan of care. DISPOSITION: The patient will be discharged home with family who can assist. DISCHARGE CONDITION: Stable. DISCHARGE ACTIVITY: As tolerated. DISCHARGE DIET: She will resume her prehospital diet. MEDICATIONS ON DISCHARGE: (1) Increase Ellipta 62.5 mg per actuation inhalation powder, 1 puff inhalation daily. (2) Lorazepam 0.5 mg 1 tablet by mouth twice daily. (3) Mirtazapine 15 mg 1 tablet by mouth at bedtime. (4) DuoNeb 3 mL inhalation q.i.d. for the next 5 days, then p.r.n. (5) Amitriptyline 100 mg by mouth daily. (6) Atorvastatin 80 mg by mouth daily. (7) Azithromycin 500 mg by mouth daily for the next 2 days to complete a 5-day course. (8) Estradiol 2 mg by mouth daily. (9) Prozac 20 mg by mouth daily. (10) Gabapentin 800 mg by mouth 3 times daily. (11) Prednisone 40 mg by mouth daily to complete a 5-day course. (12) Buprenorphine/naloxone 8 mg/2 mg sublingual tablets, 1 tablet sublingual daily. DISCHARGE INSTRUCTIONS/PLAN : The patient is to follow up with her primary care provider in the next 3 to 5 days for posthospitalization checkup. She is to complete her full course of antibiotic and steroid therapy. I did write her a prescription for nebulizer and DuoNebs that she is to continue routinely for the next 5 days and then she may go back to p.r.n. Continue home O2 as ordered. Energy conservation. She was instructed to return to the emergency department or follow up with her PCP for signs and symptoms of worsening chest pain, shortness of breath, fever, chills, nausea, vomiting, abdominal pain, or any other concerns. She was counseled on when to seek acute medical treatment and represent to the emergency department for evaluation. The patient verbalized understanding of the discharge instructions. She was given an opportunity to ask questions and all questions were answered to her satisfaction. She is amenable to the plan of care. These were also discussed with my collaborating physician, Dr. Burnett. D: BIRANNE JORGE CNP TD: 06/17/2017 21:24:08 JOB #: [id number] Brianne Jorge CNP 06/19/17 23:52 Transcribed by: NMT 06/17/2017 21:24:08 DISCHARGE SUMMARY VERO PEÑA 2 [facility] DISCHARGE SUMMARY NAME NUMBER SEX AGE ADMIT DISC TYPE MED.RECORD# VERO PEÑA [id number] F 56 06/14/2017 06/16/2017 I/P [id number] ROOM:310MO DATE OF :1960 PHYSICIAN NO.:[id number] PHYSICIAN NAME: PHYSICIAN:BRIANNE JORGE CNP Copy for: NO DOCTOR ON ADMISSION SHEET DISCHARGE SUMMARY JENIAURORA MAGUIREA Marilee 3 BASIC METABOLIC Collected: 06/19/2017 Status: F Source: SAUNDRA PROFILE (BMP) 4:27 PM [facility] REPOSITORY TYPE CODE TESTS RESULT OUT OF RANGE REFERENCE UNITS LAB L501.0100 High 70-110 mg/dL GLU 154 Result Comment: Fasting Glucose result greater than or equal to 126 mg/dLsuggests DIABETES MELLITUS per A.D.A. criteria. LAB L501.1000 Normal 7-18 mg/dL BUN 17 LAB L501.1100 Normal 0.55-1.02 mg/dL CREAT,SERUM 0.78 Result Comment: The validity of the calculated GFR AND GFRAA in patients over70 years has not been determined. Clinical correlation isessential. LAB L501.1110 Normal >60 mL/min EST GFR 81 Result Comment: Non- GFR Calc LAB L501.1115 Normal >60 mL/min EST GFR - 98 AA Result Comment: GFR Calc LAB L501.1300 High 10-20 RATIO BUN/CRE 21.8 LAB L501.2200 Normal 8.5-10.1 mg/dL CA 9.3 LAB L501.5300 Normal 136-145 mmol/L NA 140 LAB L501.5600 Normal 3.5-5.1 mmol/L K 4.3 LAB L501.5900 Normal 98-107 mmol/L CL 103 LAB L501.6100 Normal 21.0-32.0 mmol/L CO2 31.0 LAB L501.6200 Normal 5-15 GAP 6 Performed By: #### L500.2500 ####[facility] [id number] [place], [address] DISCHARGE SUMMARY Observed: 06/17/2017 Status: F Source: NADIR SAMUEL 12:39 PM [facility] DISCHARGE SUMMARY NAME NUMBER SEX AGE ADMIT DISC TYPE MED.RECORD# VERO PEÑA [id number] F 56 06/16/2017 06/16/2017 I/P [id number] ROOM:310MO DATE OF :1960 PHYSICIAN NO.:[id number] PHYSICIAN NAME: PHYSICIAN: KIA BURNETT M.D. This is a shared split visit with Brianne Jorge. I have examined the patient and interviewed her independently with Brianne Jorge present. ADMITTING DIAGNOSIS: FINAL DIAGNOSIS: SUBJECTIVE: Mrs. Peña feels well today. She would like to return home. OBJECTIVE: The patient's lungs are clear. IMPRESSION/ PLAN: The patient has a normal lactate level now. She may be discharged safely. I was concerned about discharging her yesterday due to the very high lactate level the day prior. D: KIA BURNETT M.D. TD: 06/17/2017 08:08:37 JOB #: [id number] E.Nany Burnett M.D. Internal Medicine 06/17/17 12:38 Transcribed by: NMT 06/17/2017 08:08:37 Copy for: NO DOCTOR ON ADMISSION SHEET DISCHARGE SUMMARY VERO PEÑA 1 HISTORY AND PHYSICAL Observed: 06/16/2017 Status: F Source: NADIR SAMUEL 4:57 PM [facility] HISTORY & PHYSICAL NAME NUMBER SEX AGE ADMIT DISC TYPE MED.RECORD# EVRO PEÑA [id number] F 56 06/14/2017 I/P [id number] ROOM:310MO DATE OF :1960 PHYSICIAN NO.:[id number] PHYSICIAN NAME: PHYSICIAN:KIA BURNETT M.D. ADDENDUM: This is an addendum to history and physical by Brianne Jorge. This is a shared split visit. I have seen and examined the patient independently with February. HISTORY OF PRESENT ILLNESS: The patient was admitted to the hospital with evidence of severe lactic acidosis. By laboratory studies this was 37. The patient has evidence of pneumonia per clinical criteria and x-ray criteria as well. She has received azithromycin as well as Rocephin. She appears much better than upon arrival and would consider sending her home; however, her lactate level, while reducing, is still 29. PHYSICAL EXAMINATION GENERAL APPEARANCE: Patient is awake, alert, and oriented. She states she would like to go home and her daughter is present at the bedside agreeing with such. LUNGS: The patient's lungs have a few rales bilaterally. HEART: Regular rate and rhythm. IMPRESSION/PLAN: I would like to send the patient home, but have concerns in regard to the lactate level. If such a level were not recorded, she looks physically well enough to return home as well as her vital signs and overall picture. She has agreed to stay 1 more night on account of the severe lactic acidosis upon arrival. Daughter is present and agrees with the plan. D: KIA BURNETT M.D. TD: 06/16/2017 08:46:38 JOB #: [id number] E.Sign Dr. Kia Burnett M.D. Internal Medicine 06/16/17 16:55 Transcribed by: RADHA 06/16/2017 08:46:38 Copy for : NO DOCTOR ON ADMISSION SHEET Update to H&P: [] No Changes: I have examined the patient and reviewed the H&P and there are no changes. [] As previously dictated with the following changes: HISTORY & PHYSICAL VERO PEÑA [address] [place] [address] HISTORY & PHYSICAL NAME NUMBER SEX AGE ADMIT DISC TYPE MED.RECORD# AURORA PEÑAKwesi Hunt [id number] F 56 06/14/2017 I/P [id number] ROOM:310MO DATE OF :1960 PHYSICIAN NO.: [id number] PHYSICIAN NAME: PHYSICIAN:KIA BURNETT M.D. PHYSICIAN SIGNATURE: TIME: DATE : HISTORY & PHYSICAL VERO PEÑA 2 EMERGENCY REPORT Observed: 06/16/2017 Status: F Source: [facility] 8:19 AM [facility] EMERGENCY ROOM REPORT NAME NUMBER SEX AGE ADMIT DISC TYPE MED.RECORD# VERO PEÑA [id number] F 56 06/14/2017 I/P [id number] ROOM:310MO DATE OF :1960 PHYSICIAN NO.:[id number] PHYSICIAN NAME: PHYSICIAN:DENISE NEVILLE CHIEF COMPLAINT: Increasing shortness of breath and weakness. HISTORY OF PRESENT ILLNESS: The patient has a history of long- standing COPD. She is on O2 at home 27/05. She states over the last couple of weeks, she has felt gradually increasing short of breath, but it has gotten worse the last couple of days. She has felt occasionally lightheaded and felt like she was going to pass out today. She is not complaining of any chest pain. She has some mild discomfort in her back with breathing or coughing. She has not had any documented fever. Has had no vomiting or diarrhea. States she has not had much appetite recently. PAST MEDICAL HISTORY: Significant for COPD. Does not have other significant chronic medical problems. PAST SURGICAL HISTORY: She has had previous right upper lobectomy and a complete hysterectomy. MEDICATIONS: She is on a number of medications as noted on the medication reconciliation list. ALLERGIES: Does not have any known allergies. SOCIAL HISTORY: Patient lives at home. She does not smoke, but had smoked heavy for many years. At one point, was smoking 3 packs a day. Does not drink alcohol. REVIEW OF SYSTEMS: No recent injuries. She does not have chest pain. No known heart disease. No vomiting, no diarrhea. No urinary symptoms. No pain or swelling to her extremities. PHYSICAL EXAMINATION: A 56-year-old female, alert, appropriate, appears mildly dyspneic, but not in marked distress. She does respond appropriately to questions and commands. Skin is pink, warm, and dry. HEENT examination is normal. Neck is supple without adenopathy. No jugular venous distention. She has some diminished breath sounds bilaterally with some slight rhonchi on expiration bilaterally, but no marked wheezes. Cardiac examination: Regular slightly tachy rate without ectopy or murmurs. Abdomen is soft and nontender. She moves extremities appropriately without any focal weaknesses. Good peripheral pulses. Capillary refill is about 1-2 seconds. No redness, tenderness, or asymmetry. Vital signs: Temperature 97.5, pulse 111, respirations 22, blood pressure 134/100, her O2 saturation on 02 is 95% to 96%. DIAGNOSTIC DATA: EKG, chest x-ray, and laboratories were obtained. EKG did not show any acute ST or T changes. Chest x-ray as read by the radiologist, showed right atelectasis. Laboratories showed an elevated white count of 12,600 , unremarkable differential, normal H&H. She does have a very elevated lactate of 37.5. Normal BNP. Troponin less than 0.01. CMP: Electrolytes all within normal limits, BUN and creatinine 15 and 1.3, glucose 125. IMPRESSION: Patient presents clinically with what appears to be a chronic obstructive pulmonary disease exacerbation. of a concurrent pneumonia. She has a significantly elevated lactate, but does not appear septic. Would wonder if some of this is secondary to hypovolemia. She does have a creatinine of 1.3, and in the past, they have generally been running 0.6 area. In any event, feel that admission is warranted. I did get cultures on her, started 2 g of Rocephin. Awaiting discussion with hospitalist. EMERGENCY DEPARTMENT COURSE AND TREATMENT: Patient had an IV placed. She was given a DuoNeb aerosol, 125 mg of Solu-Medrol IV. DIAGNOSIS: 1. Chronic obstructive pulmonary disease exacerbation. EMERGENCY ROOM REPORT VERO PEÑA 1 [facility] EMERGENCY ROOM REPORT NAME NUMBER SEX AGE ADMIT DISC TYPE MED.RECORD# VERO PEÑA [id number] F 56 06/14/2017 I/P [id number] ROOM:310MO DATE OF :1960 PHYSICIAN NO.:[id number] PHYSICIAN NAME: PHYSICIAN:DENISE NEVILLE 2. Pneumonia, rule out sepsis. D: DENISE NEVILLE TD: 06/14/2017 19:44:11 JOB #: [id number] INOCENCIA Neville M.D. Emergency Department 06/16/17 08:18 Transcribed by: RADHA 06/14/2017 19:44:11 Copy for: KELIN Cowart Copy for: NO DOCTOR ON ADMISSION SHEET EMERGENCY ROOM REPORT VERO PEÑA 2 LACTATE Collected: 06/16/2017 Status: F Source: [facility] 5:[address] [facility] REPOSITORY TYPE CODE TESTS RESULT OUT OF REFERENCE UNITS RANGE LAB LACTATE(DAREN 4.5 - 18.0 mg/dL NC) LACTATE 11.3 Performed By: #### [id number] ####[facility],[address] [place] [address] BMP WITH EGFR Collected: 06/16/2017 Status: F Source: [facility] 5:45 [facility] REPOSITORY TYPE CODE TESTS RESULT OUT OF RANGE REFERENCE UNITS LAB BMP with eGFR(LOINC) BMP with eGFR Result Comment: BASIC METABOLIC PANEL LAB SODIUM(LOINC) 136 - 145 mmol/l SODIUM 144 LAB POTASSIUM(LOINC) 3.5 - 5.1 mmol/L POTASSIUM 4.1 LAB CHLORIDE(LOINC) High 98 - 107 mmol/L CHLORIDE 113 LAB CO2(LOINC) 21.0 - mmol/L CO2 31.0 25.5 LAB GLUCOSE(LOINC) High 74 - 106 mg/dl GLUCOSE 134 LAB BUN(LOINC) 6 - 20 mg/dl BUN 9 LAB CREATININE(LOINC) 0.6 - 1.2 mg/dl CREATININE 0.6 LAB CALCIUM(LOINC) Low 8.6 - mg/dl CALCIUM 10.2 8.4 LAB ANION GAP(LOINC) 10 - 20 mmol/L ANION GAP 10 LAB AGE(LOINC) years AGE 56 LAB eGFR(LOINC) 60 - 999 ML/MINUTE eGFR >60 LAB eGFR(AA)(LOINC) 60 - 999 ML/MINUTE eGFR(AA) >60 Result Comment: ACCORDING TO THE NATIONAL KIDNEY DISEASE EDUCATION PROGRAM(NKDE), A NORMAL eGFRIS A VALUE GREATER THAN OR EQUAL TO 60 ML/MIN/1.73 SQ METERS.CHRONIC KIDNEY DISEASE: <60mL/MIN/1.73 SQ METERSKIDNEY FAILURE: <15mL/MIN/1.73 SQ METERSTHIS TEST SHOULD ONLY BE USED FOR PATIENTS 18 YEARS OF AGE AND OLDER. Performed By: #### [id number] ####[facility],[address] [place] [address] CBC Collected: 06/16/2017 Status: F Source: [facility] 5:[address] [facility] REPOSITORY TYPE CODE TESTS RESULT OUT OF RANGE REFERENCE UNITS LAB CBC(LOINC) CBC Result Comment: CBC-COMPLETE BLOOD COUNT LAB WBC(LOINC) 4.5 - 10.8 x 10EE3/UL WBC 10.2 LAB RBC(LOINC) Low 4.10 - x 10EE6/UL RBC 5.30 4.03 LAB HEMOGLOBIN(LOINC 12.0 - g/dl ) HEMOGLOBIN 16.0 12.8 LAB HEMATOCRIT(LOINC 34.0 - % ) HEMATOCRIT 46.0 37.0 LAB MCV(LOINC) 80 - 99 fl MCV 92 LAB MCH(LOINC) 27 - 33 pg MCH 32 LAB MCHC(LOINC) 32 - 36 X10 3 MCHC 35 LAB RDW/CV(LOINC) 12.0 - % RDW/CV 15.6 13.4 LAB PLATELET(LOINC) 150 - 450 x10EE3/UL PLATELET 151 LAB MPV(LOINC) 6.6 - 10.5 fl MPV 9.7 Result Comment: AUTOMATED DIFFERENTIAL LAB NEUT %(LOINC) 46.0 - 76.0 % NEUT % 51.3 LAB LYMPH %(LOINC) 20.0 - 45.0 % LYMPH % 41.7 LAB MONOS %(LOINC) 0.0 - 10.0 % MONOS % 5.7 LAB EO %(LOINC) 0.0 - 7.0 % EO % 0.7 LAB BASO %(LOINC) 0.0 - 2.0 % BASO % 0.6 LAB Lymph #(LOINC) High 0.80 - 2.80 x10EE3/UL Lymph # 4.20 LAB Neut #(LOINC) 1.50 - 7.10 x10EE3/UL Neut # 5.20 LAB [place] #(LOINC) 0.20 - 1.00 x10EE3/UL [place] # 0.60 LAB EO #(LOINC) 0.00 - 0.50 x10EE3/UL EO # 0.10 LAB Baso #(LOINC) 0.00 - 0.10 x10EE3/UL Baso # 0.10 Result Comment: {CD] Performed By: #### [id number] ####[place] [address] HGB A1C Collected: 06/16/2017 Status: F Source: [facility] 5:[address] [facility] REPOSITORY TYPE CODE TESTS RESULT OUT OF RANGE REFERENCE UNITS LAB HGB 4.4 - 6.4 % A1C(INC) HGB 6.0 A1C Result Comment: {HB]{A1] Performed By: #### [id number] ####[place] [address] URINALYSIS Collected: 06/15/2017 Status: F Source: [facility] 3:[address] [facility] REPOSITORY TYPE CODE TESTS RESULT OUT OF REFERENCE UNITS RANGE LAB URINALYSIS (LOINC) URINALYSIS Result Comment: URINALYSIS LAB Specimen Type(LOINC) Specimen Type VOID LAB Color(LOINC) NORMAL: Color yellow YELLOW LAB Clarity(LOINC) NORMAL: CLEAR Clarity clear LAB ph(LOINC) NORMAL: ph 6 5.0-8.0 LAB Protein(LOINC) Abnormal NORMAL: Protein 15 NEGATIVE LAB Glucose(LOINC) Abnormal NORMAL: Glucose 250 NORMAL LAB Ketone(LOINC) NORMAL: Ketone NEG NEGATIVE LAB Bilirubin(LOINC) NORMAL: Bilirubin NEG NEGATIVE LAB Blood(LOINC) NORMAL: Blood NEG NEGATIVE LAB Urobilinog(LOINC NORMAL: ) Urobilinog NORM NORMAL LAB Sp NORMAL: [place](LOINC) Sp [place] 1.010 1.010-1.030 LAB Nitrite(LOINC) NORMAL: Nitrite NEG NEGATIVE LAB Leukocytes(LOINC NORMAL: ) Leukocytes NEG NEGATIVE LAB Microscopic(LOIN C) Microscopic NOT INDICATED Performed By: #### [id number] ####[facility],[address] [place] [id number] D-DIMER, QUANTITATIVE Collected: 06/15/2017 Status: F Source: [facility] 1:[address] [facility] REPOSITORY TYPE CODE TESTS RESULT OUT OF REFERENCE UNITS RANGE LAB D-DIMER, QUANTITATI D-DIMER, VE(LOINC) QUANTITATIVE Result Comment: QUANT D-DIMER LAB D-DIMER High 0 - 230 ng/ml QUANT(LOINC) D-DIMER QUANT 387 Performed By: #### [id number] ####[facility],[address] [place] [id number] CBC Collected: 06/15/2017 Status: F Source: [facility] 5:[address] [facility] REPOSITORY TYPE CODE TESTS RESULT OUT OF RANGE REFERENCE UNITS LAB CBC(LOINC) CBC Result Comment: CBC-COMPLETE BLOOD COUNT LAB WBC(LOINC) 4.5 - 10.8 x 10EE3/UL WBC 8.2 LAB RBC(LOINC) 4.10 - x 10EE6/UL RBC 5.30 4.37 LAB HEMOGLOBIN(LOINC) 12.0 - g/dl HEMOGLOBIN 16.0 14.0 LAB HEMATOCRIT(LOINC) 34.0 - % HEMATOCRIT 46.0 40.1 LAB MCV(LOINC) 80 - 99 fl MCV 92 LAB MCH(LOINC) 27 - 33 pg MCH 32 LAB MCHC(LOINC) 32 - 36 X10 3 MCHC 35 LAB RDW/CV(LOINC) 12.0 - % RDW/CV 15.6 12.9 LAB PLATELET(LOINC) 150 - 450 x10EE3/UL PLATELET 179 LAB MPV(LOINC) 6.6 - 10.5 fl MPV 8.8 Result Comment: AUTOMATED DIFFERENTIAL LAB NEUT %(LOINC) High 46.0 - 76.0 % NEUT % 76.5 LAB LYMPH %(LOINC) Low 20.0 - 45.0 % LYMPH % 18.4 LAB MONOS %(LOINC) 0.0 - 10.0 % MONOS % 4.7 LAB EO %(LOINC) 0.0 - 7.0 % EO % 0.1 LAB BASO %(LOINC) 0.0 - 2.0 % BASO % 0.3 LAB Lymph #(LOINC) 0.80 - 2.80 x10EE3/U Lymph # L 1.50 LAB Neut #(LOINC) 1.50 - 7.10 x10EE3/U Neut # L 6.30 LAB [place] #(LOINC) 0.20 - 1.00 x10EE3/U [place] # L 0.40 LAB EO #(LOINC) 0.00 - 0.50 x10EE3/U EO # L 0.00 LAB Baso #(LOINC) 0.00 - 0.10 x10EE3/U Baso # L 0.00 LAB MANUAL DIFF(INC) MANUAL DIFF N/A LAB MORPHOLOGY(INC ) MORPHOLOGY N/A Result Comment: {CD] Performed By: #### [id number] ####[facility],[address] [place] [address] BMP WITH EGFR Collected: 06/15/2017 Status: F Source: [facility] 5:[address] [facility] REPOSITORY TYPE CODE TESTS RESULT OUT OF RANGE REFERENCE UNITS LAB BMP with eGFR(INC) BMP with eGFR Result Comment: BASIC METABOLIC PANEL LAB SODIUM(LOINC) 136 - 145 mmol/l SODIUM 140 LAB POTASSIUM(LOINC) 3.5 - 5.1 mmol/L POTASSIUM 4.2 LAB CHLORIDE(LOINC) High 98 - 107 mmol/L CHLORIDE 110 LAB CO2(LOINC) 21.0 - mmol/L CO2 31.0 25.1 LAB GLUCOSE(LOINC) High 74 - 106 mg/dl GLUCOSE 213 LAB BUN(LOINC) 6 - 20 mg/dl BUN 13 LAB CREATININE(LOINC) 0.6 - 1.2 mg/dl CREATININE 0.8 LAB CALCIUM(LOINC) 8.6 - mg/dl CALCIUM 10.2 8.8 LAB ANION GAP(LOINC) Low 10 - 20 mmol/L ANION GAP 9 LAB AGE(LOINC) years AGE 56 LAB eGFR(LOINC) 60 - 999 ML/MINUTE eGFR >60 LAB eGFR(AA)(LOINC) 60 - 999 ML/MINUTE eGFR(AA) >60 Result Comment: ACCORDING TO THE NATIONAL KIDNEY DISEASE EDUCATION PROGRAM(NKDE), A NORMAL eGFRIS A VALUE GREATER THAN OR EQUAL TO 60 ML/MIN/1.73 SQ METERS.CHRONIC KIDNEY DISEASE: <60mL/MIN/1.73 SQ METERSKIDNEY FAILURE: <15mL/MIN/1.73 SQ METERSTHIS TEST SHOULD ONLY BE USED FOR PATIENTS 18 YEARS OF AGE AND OLDER. Performed By: #### [id number] ####[place] [address] TROPONIN Collected: 06/14/2017 Status: F Source: [facility] 11:[address] [facility] REPOSITORY TYPE CODE TESTS RESULT OUT OF REFERENCE UNITS RANGE LAB TROPONIN 0.00 - 0.05 ng/ml I(LOINC) TROPONIN I <0.01 Result Comment: Elevated troponin (above the 99th percentile) usually indicates myocardialischemia. Results must be interpreted within the clinical setting.1.Non-ischemic pathology can also cause elevated troponin levels (e.g. , acute pulmonary embolism, myocarditis, pericarditis, heart failure, intracranial injury, rhabdomyolisis, sepsis, shock and renal insufficiency).2.Approximately 1% of healthy adults have elevated troponin levels.3.Analytical false positive results rarely occur(due to multiple interferences such as heterophile antibodies). Performed By: #### [id number] ####[place] [address] LACTATE Collected: 06/14/2017 Status: F Source: [facility] 9:40 [facility] REPOSITORY TYPE CODE TESTS RESULT OUT OF REFERENCE UNITS RANGE LAB LACTATE(DAREN High 4.5 - 18.0 mg/dL MI) LACTATE 29.3 Performed By: #### [id number] ####[place] [address] TROPONIN Collected: 06/14/2017 Status: F Source: [facility] 9:40 [facility] REPOSITORY TYPE CODE TESTS RESULT OUT OF REFERENCE UNITS RANGE LAB TROPONIN 0.00 - 0.05 ng/ml I(LOINC) TROPONIN I <0.01 Result Comment: Elevated troponin (above the 99th percentile) usually indicates myocardialischemia. Results must be interpreted within the clinical setting.1.Non-ischemic pathology can also cause elevated troponin levels (e.g. , acute pulmonary embolism, myocarditis, pericarditis, heart failure, intracranial injury, rhabdomyolisis, sepsis, shock and renal insufficiency).2.Approximately 1% of healthy adults have elevated troponin levels.3.Analytical false positive results rarely occur(due to multiple interferences such as heterophile antibodies). Performed By: #### [id number] ####[facility],[address] [place] [address] CHEST AP Observed: 06/14/2017 Status: F Source: [facility] 6:[address] [facility] REPOSITORY [place] [address] Patient: VERO PEÑA Phone#: : 1960 Age: 56 Gender: F Pt. Type: ER Account: [id number] [place] [facility] [place] Ordering: DENISE NEVILLE Exam Date: 06/14/2017/18:24 Family Phys: NO DOCTOR Charge Code: 388672 Physician: [place] Order #: [id number] DLP Dose#: PROCEDURE: X-RAY CHEST AP 1 VIEW COMPARISON: [facility], XR, CHEST PA/LAT, 10/07/2016, 13:58. INDICATIONS: Cough FINDINGS: LUNGS: Atelectasis or scarring in the left lateral lung base. Interval resolution of the atelectasis previously seen in the mid lower left lung. VASCULATURE: Normal. Unremarkable pulmonary vasculature. CARDIAC: Normal. No cardiac silhouette abnormality or cardiomegaly. MEDIASTINUM: Normal. No visible mass or adenopathy. PLEURA: Normal. No effusion or pleural thickening. BONES: Normal. No fracture or visible bony lesion. OTHER: Negative. CONCLUSION : 1. Atelectasis. Dictated by: Graciela Panda MD on 06/14/2017 at 18:39 Approved by: Graciela Panda MD on 06/14/2017 at 18:39 CBC Collected: 06/14/2017 Status: F Source: [facility] 6:[address] [facility] REPOSITORY TYPE CODE TESTS RESULT OUT OF RANGE REFERENCE UNITS LAB CBC(LOINC) CBC Result Comment: CBC-COMPLETE BLOOD COUNT LAB WBC(LOINC) High 4.5 - 10.8 x 10EE3/UL WBC 12.6 LAB RBC(LOINC) 4.10 - x 10EE6/UL RBC 5.30 4.86 LAB HEMOGLOBIN(LOINC 12.0 - g/dl ) HEMOGLOBIN 16.0 15.3 LAB HEMATOCRIT(LOINC 34.0 - % ) HEMATOCRIT 46.0 44.6 LAB MCV(LOINC) 80 - 99 fl MCV 92 LAB MCH(LOINC) 27 - 33 pg MCH 31 LAB MCHC(LOINC) 32 - 36 X10 3 MCHC 34 LAB RDW/CV(LOINC) 12.0 - % RDW/CV 15.6 13.3 LAB PLATELET(LOINC) 150 - 450 x10EE3/UL PLATELET 212 LAB MPV(LOINC) 6.6 - 10.5 fl MPV 9.3 Result Comment: AUTOMATED DIFFERENTIAL LAB NEUT %(LOINC) 46.0 - 76.0 % NEUT % 66.1 LAB LYMPH %(LOINC) 20.0 - 45.0 % LYMPH % 23.8 LAB MONOS %(LOINC) 0.0 - 10.0 % MONOS % 7.8 LAB EO %(LOINC) 0.0 - 7.0 % EO % 1.3 LAB BASO %(LOINC) 0.0 - 2.0 % BASO % 1.0 LAB Lymph #(LOINC) High 0.80 - 2.80 x10EE3/UL Lymph # 3.00 LAB Neut #(LOINC) High 1.50 - 7.10 x10EE3/UL Neut # 8.40 LAB [place] #(LOINC) 0.20 - 1.00 x10EE3/UL [place] # 1.00 LAB EO #(LOINC) 0.00 - 0.50 x10EE3/UL EO # 0.20 LAB Baso #(LOINC) 0.00 - 0.10 x10EE3/UL Baso # 0.10 Result Comment: {CD] Performed By: #### [id number] ####[facility],[address] [place], [place] [id number] LACTATE Collected: 06/14/2017 Status: F Source: [facility] 6:[address] [facility] REPOSITORY TYPE CODE TESTS RESULT OUT OF REFERENCE UNITS RANGE LAB LACTATE(DAREN High Alert 4.5 - 18.0 mg/dL NC) LACTATE 37.5 Result Comment: { CALLED TO ER AT 1910, RA 1909{ READ BACK BY CHYNA TO CWB{ TEST REPEATED Performed By: #### [id number] ####[place] [id number] TROPONIN Collected: 06/14/2017 Status: F Source: [facility] 6:30 [facility] REPOSITORY TYPE CODE TESTS RESULT OUT OF REFERENCE UNITS RANGE LAB TROPONIN 0.00 - 0.05 ng/ml I(LOINC) TROPONIN I <0.01 Result Comment: Elevated troponin (above the 99th percentile) usually indicates myocardialischemia. Results must be interpreted within the clinical setting.1.Non-ischemic pathology can also cause elevated troponin levels (e.g. , acute pulmonary embolism, myocarditis, pericarditis, heart failure, intracranial injury, rhabdomyolisis, sepsis, shock and renal insufficiency).2.Approximately 1% of healthy adults have elevated troponin levels.3.Analytical false positive results rarely occur(due to multiple interferences such as heterophile antibodies). Performed By: #### [id number] ####[place] [id number] CMP WITH EGFR Collected: 06/14/2017 Status: F Source: [facility] 6:30 [facility] REPOSITORY TYPE CODE TESTS RESULT OUT OF RANGE REFERENCE UNITS LAB CMP with eGFR(LOINC) CMP with eGFR Result Comment: COMPREHENSIVE METABOLIC PANEL LAB SODIUM(LOINC) 136 - 145 mmol/l SODIUM 139 LAB POTASSIUM(LOINC) 3.5 - 5.1 mmol/L POTASSIUM 3.7 LAB CHLORIDE(LOINC) 98 - 107 mmol/L CHLORIDE 104 LAB CO2(LOINC) 21.0 - mmol/L CO2 31.0 23.9 LAB GLUCOSE(LOINC) High 74 - 106 mg/dl GLUCOSE 125 LAB BUN(LOINC) 6 - 20 mg/dl BUN 15 LAB CREATININE(LOINC) High 0.6 - 1.2 mg/dl CREATININE 1.3 LAB AST/SGOT(LOINC) High 13 - 39 U/L AST/SGOT 55 LAB ALK PHOS(LOINC) 38 - 126 U/L ALK PHOS 118 LAB CALCIUM(LOINC) 8.6 - mg/dl CALCIUM 10.2 9.1 LAB TOTAL 6.4 - 8.3 g/dl PROTEIN(LOINC) TOTAL PROTEIN 7.4 LAB ALBUMIN(LOINC) 3.4 - 4.8 g/dL ALBUMIN 4.2 LAB GLOBULIN(LOINC) 1.5 - 3.8 G/DL GLOBULIN 3.2 LAB A/G RATIO(LOINC) 0.9 - 1.6 A/G RATIO 1.3 LAB TOTAL BILI(LOINC) 0.0 - 1.5 mg/dl TOTAL BILI 0.4 LAB B/C RATIO(LOINC) 0 - 30 ratio B/C RATIO 12 LAB ALT/SGPT(LOINC) High 8 - 35 U/L ALT/SGPT 47 LAB ANION GAP(LOINC) 10 - 20 mmol/L ANION GAP 15 LAB AGE(LOINC) years AGE 56 LAB eGFR(LOINC) Low 60 - 999 ML/MINUTE eGFR 43 LAB eGFR(AA)(LOINC) Low 60 - 999 ML/MINUTE eGFR(AA) 52 Result Comment: ACCORDING TO THE NATIONAL KIDNEY DISEASE EDUCATION PROGRAM(NKDE), A NORMAL eGFRIS A VALUE GREATER THAN OR EQUAL TO 60 ML/MIN/1.73 SQ METERS.CHRONIC KIDNEY DISEASE: <60mL/MIN/1.73 SQ METERSKIDNEY FAILURE: <15mL/MIN/1.73 SQ METERSTHIS TEST SHOULD ONLY BE USED FOR PATIENTS 18 YEARS OF AGE AND OLDER. Performed By: #### [id number] ####[place] [address] BNP (B-TYPE NATRIURETIC Collected: 06/14/2017 Status: F Source: [facility] POMER[facility] PEPTIDE) 6:[address] [facility] REPOSITORY TYPE CODE TESTS RESULT OUT OF RANGE REFERENCE UNITS LAB BNP(LOINC) 1 - 100 pg/ml BNP 18 Performed By: #### [id number] ####[place] [id number] Observed: 06/14/2017 Status: F Source: [facility] CULTURE BLOOD 6:[address] [facility] REPOSITORY CULTURE BLOOD _BLOOD CULTURE_ORDER #[id number]:2 of 2 24 HOUR REPORT _NO_GROWTH 06/16/17.0616.JLN. 48 HOUR REPORT _NO_GROWTH __ 06/16/17.2351.LMM. 72 HOUR REPORT _NO_GROWTH .0057.LMM. GRAM STAIN: M I C R O B I O L O G Y R E P O R T FINAL Antimicrobial Susceptibility and Organism Identification Report Specimen Number : [id number] Requested : 06/14/17 Specimen Source : BLOOD Collected : 18:30 Acevedo of Isolation : Emergency Room Received : 06/14/17 18:38 Requesting Physician : TING PHYSICIAN Patient/Specimen Tests and Comments Specimen Comments FINAL REPORT: No Growth at 5 Days Tech : Source : BLOOD ID # : [id number] FINAL Report Date : / / : Collected : 06/14/17 18:30 06/20/17.635.MDS. 06/20/17.MDS.COMPLETE Performed By: #### [id number] ####[facility],[address] [place] [address] Observed: 06/14/2017 Status: F Source: [facility] CULTURE BLOOD 6:[address] [facility] REPOSITORY CULTURE BLOOD _BLOOD CULTURE_ORDER #[id number]: 24 HOUR REPORT _NO_GROWTH 06/16/17.0616.JLN. 48 HOUR REPORT _NO_GROWTH __ 06/16/17.2351.LMM. 72 HOUR REPORT _NO_GROWTH .0057.LMM. GRAM STAIN: M I C R O B I O L O G Y R E P O R T FINAL Antimicrobial Susceptibility and Organism Identification Report Specimen Number : [id number] Requested : 06/14/17 Specimen Source : BLOOD Collected : 18:30 Acevedo of Isolation : Emergency Room Received : 06/14/17 18:38 Requesting Physician : TING PHYSICIAN Patient/Specimen Tests and Comments Specimen Comments FINAL REPORT: No Growth at 5 Days Tech : Source : BLOOD ID # : [id number] FINAL Report Date : / / : Collected : 06/14/17 18:30 06/20/17.MDS. 06/20/17.MDS.COMPLETE Performed By: #### [id number] ####[facility],[address] [place], [place] [address] ALCOHOL,URINE/[facility] Collected: Status: F Source: [place] 06/10/2017 4:19 PM [facility] REPOSITORY TYPE CODE TESTS RESULT OUT OF RANGE REFERENCE UNITS LAB L3350.2975 Normal 20 URINE ALCOHOLQ Result Comment: TEST RESULT LIMITSEIA URINE ALCOHOL Negative Cutoff = 20EIA BUPRENORPHINE WITH PANEL Positive Cutoff = 5DATA SUGGESTS THAT TRAMADOL USE CAN CAUSE FALSE POSITIVEURINE BUPRENORPHINE IMMUNOASSAY (EIA); LC/MS CONFIRMATIONRECOMMENDED. __ TESTING PERFORMED AT [facility]. ORIGINAL REPORT ON FILE IN LAB CONTAINS ADDITIONAL TEST SITE INFORMATION. Performed By: #### L3350.2925 ####[facility] [address] [place], [place], [id number] ALLERGIES ALLERGIES DATE TYPE / CODE NAME / CODE REACTION SEVERITY SOURCE 01/26/2014 Drug No Known Unknown [place] Allergy/[id number](S Allergies/F[address] [facility]) [address](RXNORM) Hospital Repository 01/26/2014 Drug No Known Saundra Allergy/771063184(S Allergies/F[address]) [address]609(RXNORM) Hospital Repository Miscellaneous No Known Drug Moderate Nadir Samuel Allergy/[id number](S Allergies ([facility]) Modifier) Hospital (Qualifier Repository Value) ENCOUNTERS ENCOUNTERS ADMIT/DISCHARGE ACCOUNT ADMITTING ENCOUNTER LOCATION SOURCE NUMBER CLASS 05/28/2018 [id number] Ambulatory [facility] 2 [facility] ing:POLAB3 Repository 05/14/2018 [id number] Ambulatory [facility] 0 [facility] ing:LAB.SAMANTHA Repository E 05/12/2018/ [id number] DR [facility]AN [facility] [place] [address] 8 W[place]ACE Suarez oom: ERBed: A [facility] Repository 03/19/2018 [id number] Ambulatory Saundra [place] 2 [facility] ing:POLAB3 Repository 03/06/2018/ [id number] NADIR, Ambulatory [facility] 8 [facility] Repository 12/19/2017 [id number] Ambulatory [place] Saundra 8 [facility] ing:LABSPEC Repository 12/19/2017 [id number] Ambulatory Saundra [facility] 4 [facility] ing:POLAB3 Repository 11/28/2017 [id number] Ambulatory [place] 2 [facility] ing:POLAB3 Repository 11/22/2017 [id number] Ambulatory Saundra [place] 1 [facility] ing:US Repository 11/05/2017/ [id number] DR ALLAN [facility] [place] [address] WALLACE Suarez oom: ERBed: [facility] Repository 10/17/2017 [id number] Ambulatory Saundra [place] 4 [facility] ing:LAB.FUTUR Repository E 06/19/2017 [id number] Ambulatory Saundra Saundra 6 [facility] ing:POLAB3 Repository 06/14/2017/ [id number] [facility] BuildinR [facility] 7 KIA CLARK Encounter oom: [address] [place] [address] Repository 06/10/2017 [id number] Ambulatory Saundra Saundra 3 [facility] ing:MTLAB Repository PAYERS PAYERS ENCOUNTER GUARANTOR PAYER SUBSCRIBER SOURCE 05/28/2018 Vero Hunt Primary Insurance:[facility] Vero Marilee [place] [id number] [facility] CusterDOB: [address], Number: [id number] [facility] [address]Lcw: [id number] Repository Date:4483-10-28FG BOX () [address] [place] [address] 14016AI: 05/28/2018 Secondary NOT GIVENUNK Saundra Insurance:SELF PAY [facility] Number: Effective Repository Date:2018-05-28 05/14/2018 Vero J Primary Insurance:[facility] Vero J [place] [id number] [facility] PLANDuke [facility] CusterDOB: [address], Number: [id number] [address]Heu: [id number] Repository Date:3836-03-19SS BOX () [address] [place] [address] 10994AU: 05/14/2018 Secondary NOT GIVENUNK Saundra Insurance:SELF PAY [facility] Number: Effective Repository Date:2018-05-08 05/12/2018 VERO J Primary VERO J Nadir Pomerene CUSTERDOB: Insurance:UNITED CUSTERDOB: [facility] [id number] Hospital SR [facility] 4 SR Repository [address] [place] [address], Number: [address] [place] [id number]: [id number] D[place] [id number] Date:Plan Name:X4 () 03/19/2018 Vero J Primary Insurance:[facility] Vero J [place] [id number] [facility] CusterDOB: [address], Number: [id number] [place] [id number]: [id number] Repository Date:5177-89-98UZ BOX () [address] [place] [address] 54[address]LD: 03/19/2018 Secondary NOT GIVENUNK [place] Insurance:SELF PAY [facility] Number: Effective Repository Date:2017-12-25 03/06/2018 VERO J Primary VERO J Nadir Pomerene CUSTERDOB: Insurance:UNITED CUSTERDOB: [facility] [id number] Hospital SR [facility] 4 SR Repository [address] [place] [address], Number: [address] [place] [id number]: [id number] D[place] [id number] Date:Plan Name:X4 () 12/19/2017 Vero J Primary Insurance:[facility] Vero J Saundra [id number] [facility] PLANPoly CusterDOB: [address], Number: [id number] [facility] Rehabilitation Center [address]Zmm: [id number] Repository Date:3440-70-65FR BOX () [address] [place] [address]FT: 12/19/2017 Secondary NOT GIVENUNK Saundra Insurance:SELF PAY [facility] Number: Effective Repository Date:2017-12-19 12/19/2017 Vero J Primary Insurance:[facility] Vero J Saundra [id number] [facility] PLANDuke [facility] CusterDOB: [address], Number: [id number] Mexico Rehabilitation Center [address]Zdv: [id number] Repository Date:8575-59-99WV BOX () [address] [place] [address] 93[address]CB: 12/19/2017 Secondary NOT GIVENUNK Saundra Insurance:SELF PAY [facility] Number: Effective Repository Date:2017-12-19 11/28/2017 Vero J Primary Insurance:[facility] Vero J [place] [id number] [facility] CusterDOB: [address], Number: [id number] [facility] Rehabilitation Center [address]Rfr: [id number] Repository Date:8028-54-95DD BOX () [address] [place] [address] 23545QK: 11/28/2017 Secondary NOT GIVENUNK Saundra Insurance:SELF PAY [facility] Number: Effective Repository Date:2017-11-28 11/22/2017 Vero J Primary Insurance:[facility] Vero J [place] [id number] [facility] CusterDOB: [address], Number: [id number] Mexico Rehabilitation Center [address]Iho: [id number] Repository Date:6993-30-65HY BOX () [address] [place] [address]VE: 11/22/2017 Secondary NOT GIVENUNK [place] Insurance:SELF PAY [facility] Number: Effective Repository Date:2017-10-24 11/05/2017 VERO J Primary VERO Marilee Samuel CUSTERDOB: Insurance:UNITED CUSTERDOB: [facility] [id number] Hospital SR PLAN OUTPATPolicy 4 SR Repository [address] [place] [address], Number: 83[place] [id number]: [id number] D[place] [id number] Date:Plan Name:X4 () 10/17/2017 Vero J Primary Insurance:[facility] Vero J [place] [id number] [facility] CusterDOB: [address], Number: [id number] [place] [address]Szz: [id number] Repository Date:5301-88-80CC BOX () [address] [place] [address]LV: 10/17/2017 Secondary NOT GIVENUNK Saundra Insurance:SELF PAY [facility] Number: Effective Repository Date:2017-06-11 06/19/2017 VERO J Primary Insurance:[facility] VERO J Saundra [id number] [facility] CUSTERDOB: [address], Number: [id number] [place] [id number]: [id number] Repository Date:7929-19-17YO BOX () [address] [place] [address] 324[address]YS: 06/14/2017 VERO J Primary VERO Marilee Oneilne CUSTERDOB: Insurance:UNITED CUSTERDOB: [facility] [id number] Hospital SR PLAN INPATIEPolicy 4 SR Repository [address] [place] [address], Number: [address] [place] [id number]: [id number] [place] [id number] Date:Plan Name:X4 () 06/10/2017 VERO Hunt Primary Insurance:[facility] VERO Arguello [id number] [facility] PLANPolicy CUSTERDOB: [address], Number: [id number] Mexico Rehabilitation Center [address]Mpx: [id number] Repository Date:4169-36-63BX BOX () [address] [place] [address]OP:
[2018-08-05 17:28] LABS: Absolute Lymphocyte Count 2.54 X10^3/ul (0.83-4.51); Absolute Neutrophil Count 6.2 X10^3/uL (2.0-7.7); Basophil# 0.02 X10^3/uL; Basophil% 0.2 % (0-1); Eosinophil# 0.24 X10^3/uL; Eosinophils% 2.4 % (0-5); Hematocrit 42.2 % (37-47); Hemoglobin 14.3 g/dl (12.0-15.0); Lymphocyte # 2.54 X10^3/ul (4.0); Lymphocyte % 25.8 % (19-41); Mean Corp Hgb Conc 33.9 g/gl (32-36); Mean Corpuscular Hgb 31.9 pg (27.0-32.0); Mean Corpuscular Volume 94.2 fL (81-99); Mean Platelet Vol. 10.2 fl (6.2-12.0); Monocyte% 8.1 % (0-10); Neutrophil # 6.23 X10^3/uL (2.7-7.7); Neutrophil % 63.3 % (47-70); POSITIVE COUNT NO; POSITIVE DIFFERENTIAL NO; POSITIVE MORPHOLOGY NO; Platelet Count 273 K/mm3 (150-450); RBC Distribution Width CV 13.3 % (11.6-14.6); RBC Distribution Width SD 44.6 fl (35.1-43.9); Red Blood Count 4.48 M/mm3 (4.2-5.4); White Blood Count 9.9 K/mm3 (4.4-11.0)
[2018-08-05 18:16] LABS: ALB/GLOB Ratio 0.8 RATIO (0.9-2.4); AST(SGOT) 26 U/L (15-37); Alanine Aminotransfer ALT/SGPT 35 U/L (13-56); Albumin, Serum 3.4 g/dL (3.2-5.0); Alkaline Phosphatase 114 U/L (45-117); Anion Gap 10 (5-15); BUN 13 mg/dL (7-18); BUN/Creat Ratio 12.6 RATIO (10-20); Calcium,Total 8.6 mg/dL (8.5-10.1); Chloride 104 mmol/L (98-107); Creatinine, Serum 1.03 mg/dL (0.55-1.02); EST Glomerular Filtration Rate 59 mL/min (>60); Est Glom Filt Rate - Afr Amer 71 mL/min (>60); Glucose 127 mg/dL (74-106); Potassium 3.9 mmol/L (3.5-5.1); Protein, Total 7.4 g/dL (6.4-8.2); Sodium Level 143 mmol/L (136-145); Thyroid Stim Hormone (TSH) 1.44 uIU/mL (0.358-3.74)
== END ==
PROVIDERS: Family Provider Family Medicine Geriatric Medicine; PCP Family Medicine Geriatric Medicine; Visit Provider Family Medicine Geriatric Medicine
DX: R53.83 Other fatigue (principal)
CPT/HCPCS: 36415; 80053; 84443; 85025

== ENCOUNTER → 2018-08-07 10:43 | Outpatient (CLI) | payer MEDICAID, SELFPAY ==
[2018-08-07 13:13] LABS: Amphetamine Urine VISTA NEGATIVE (<1000 ng/mL); Barbiturate Urine VISTA NEGATIVE (< 200 ng/mL); Benzodiazepine Urine VISTA POSITIVE (< 200 ng/mL); Cocaine Urine VISTA NEGATIVE (< 300 ng/mL); Ecstacy Urine VISTA NEGATIVE (< 500 ng/mL); Methadone Urine VISTA NEGATIVE (< 300 ng/mL); PCP Urine VISTA NEGATIVE (< 25 ng/mL); THC Urine VISTA NEGATIVE (< 50 ng/mL); Vista UDS pH Range 7
== END ==
PROVIDERS: Family Provider Family Medicine Geriatric Medicine; PCP Family Medicine Geriatric Medicine; Referring Provider Psychiatry & Neurology Psychiatry; Visit Provider Psychiatry & Neurology Psychiatry
DX: F11.20 Opioid dependence, uncomplicated (principal)
CPT/HCPCS: 80307

== ENCOUNTER → 2018-12-11 16:17 | Outpatient (CLI) | payer MEDICAID, SELFPAY ==
[2018-12-11 16:59] LABS: Absolute Lymphocyte Count 4.24 X10^3/ul (0.83-4.51); Absolute Neutrophil Count 2.7 X10^3/uL (2.0-7.7); Basophil# 0.04 X10^3/uL; Basophil% 0.5 % (0-1); Eosinophil# 0.19 X10^3/uL; Eosinophils% 2.4 % (0-5); Hematocrit 41.8 % (37-47); Hemoglobin 13.8 g/dl (12.0-15.0); Lymphocyte # 4.24 X10^3/ul (4.0); Lymphocyte % 54.1 % (19-41); Mean Corpuscular Hgb 30.9 pg (27.0-32.0); Mean Corpuscular Volume 93.7 fL (81-99); Mean Platelet Vol. 10.6 fl (6.2-12.0); Monocyte# 0.69 X10^3/uL; Monocyte% 8.8 % (0-10); Neutrophil # 2.67 X10^3/uL (2.7-7.7); Neutrophil % 34.1 % (47-70); Platelet Count 216 K/mm3 (150-450); RBC Distribution Width CV 12.7 % (11.6-14.6); RBC Distribution Width SD 42.5 fl (35.1-43.9); Red Blood Count 4.46 M/mm3 (4.2-5.4); White Blood Count 7.8 K/mm3 (4.4-11.0)
[2018-12-11 17:04] LABS: POSITIVE COUNT NO; POSITIVE DIFFERENTIAL NO; POSITIVE MORPHOLOGY NO
[2018-12-11 17:26] LABS: AST(SGOT) 38 U/L (15-37); Alanine Aminotransfer ALT/SGPT 63 U/L (13-56); Albumin, Serum 3.9 g/dL (3.2-5.0); Alkaline Phosphatase 126 U/L (45-117); Anion Gap 8 (5-15); BUN 12 mg/dL (7-18); BUN/Creat Ratio 14.7 RATIO (10-20); Calcium,Total 8.4 mg/dL (8.5-10.1); Chloride 106 mmol/L (98-107); Creatinine, Serum 0.81 mg/dL (0.55-1.02); EST Glomerular Filtration Rate 77 mL/min (>60); Est Glom Filt Rate - Afr Amer 93 mL/min (>60); Globulin 3.9 g/dL (2.2-4.2); Glucose 102 mg/dL (74-106); Potassium 3.3 mmol/L (3.5-5.1); Protein, Total 7.8 g/dL (6.4-8.2); Sodium Level 139 mmol/L (136-145); Thyroid Stim Hormone (TSH) 1.64 uIU/mL (0.358-3.74)
== END ==
PROVIDERS: Family Provider Family Medicine Geriatric Medicine; PCP Family Medicine Geriatric Medicine; Visit Provider Family Medicine Geriatric Medicine
DX: R53.83 Other fatigue (principal)
CPT/HCPCS: 36415; 80053; 84443; 85025

== ENCOUNTER → 2018-12-15 15:07 | Outpatient (CLI) | payer MEDICAID, SELFPAY ==
[2018-12-15 15:44] LABS: Amphetamine Urine VISTA POSITIVE (<1000 ng/mL); Barbiturate Urine VISTA NEGATIVE (< 200 ng/mL); Benzodiazepine Urine VISTA NEGATIVE (< 200 ng/mL); Cocaine Urine VISTA NEGATIVE (< 300 ng/mL); Ecstacy Urine VISTA NEGATIVE (< 500 ng/mL); Methadone Urine VISTA NEGATIVE (< 300 ng/mL); PCP Urine VISTA NEGATIVE (< 25 ng/mL); THC Urine VISTA NEGATIVE (< 50 ng/mL); Vista UDS pH Range 6
== END ==
PROVIDERS: Family Provider Family Medicine Geriatric Medicine; PCP Family Medicine Geriatric Medicine; Referring Provider Psychiatry & Neurology Psychiatry; Visit Provider Psychiatry & Neurology Psychiatry
DX: F19.10 Other psychoactive substance abuse, uncomplicated (principal); Z79.899 Other long term (current) drug therapy
CPT/HCPCS: 80307

== ENCOUNTER → 2019-01-29 12:14 | Outpatient (CLI) | payer MEDICAID, SELFPAY ==
--- NOTE | 2019-01-29 12:15 | BI_ITS ---
MAMMOGRAPHY - BILATERAL SCREENING REASON FOR EXAM: Female, 58 years old. Routine annual screening examination. PERTINENT HISTORY: Aunt with breast cancer. TECHNIQUE: Digital bilateral breast precious (3D mammographic acquisition) in the CC and MLO projections. 2-D mediolateral oblique (MLO) and craniocaudad (CC) views of both breasts were obtained. CAD: Full Field Digital Mammography with Computer Added Detection was performed. COMPARISON: Comparison is made with prior study dated February 05, 2017. FINDINGS: Breast Composition: The breasts are heterogeneously dense, which may obscure small masses. There are no dominant masses or suspicious calcifications. Stable appearance of the bilateral axillary lymph nodes. No other significant abnormalities are identified. There has been no significant change since the prior study. BI/SCREENING MAMM (CAD), BILAT IMPRESSION: Stable bilateral screening mammogram. Yearly follow-up mammogram recommended. (A) ASSESSMENT CATEGORY: BIRADS Category 2: Benign. A letter regarding these results will be sent to the patient by the facility within 30 days. Approximately 10% of breast cancers are not detected by mammography. A normal mammogram should not delay biopsy of a clinically suspicious abnormality. [id number] Electronically Signed: Alo Garcia, at 13:26 EDT , Service support ,
== END ==
PROVIDERS: Family Provider Family Medicine Geriatric Medicine; PCP Family Medicine Geriatric Medicine; Referring Provider Family Medicine Geriatric Medicine; Visit Provider Family Medicine Geriatric Medicine
DX: Z12.31 Encounter for screening mammogram for malignant neoplasm of breast (principal)
CPT/HCPCS: 77063; 77067

== ENCOUNTER → 2019-02-24 15:42 | Outpatient (CLI) | payer MEDICAID, SELFPAY ==
[2019-02-24 17:54] LABS: Amphetamine Urine VISTA NEGATIVE (<1000 ng/mL); Barbiturate Urine VISTA NEGATIVE (< 200 ng/mL); Benzodiazepine Urine VISTA POSITIVE (< 200 ng/mL); Cocaine Urine VISTA NEGATIVE (< 300 ng/mL); Ecstacy Urine VISTA NEGATIVE (< 500 ng/mL); Methadone Urine VISTA NEGATIVE (< 300 ng/mL); PCP Urine VISTA NEGATIVE (< 25 ng/mL); THC Urine VISTA NEGATIVE (< 50 ng/mL); Vista UDS pH Range 5
== END ==
PROVIDERS: Family Provider Family Medicine Geriatric Medicine; PCP Family Medicine Geriatric Medicine; Referring Provider Psychiatry & Neurology Psychiatry; Visit Provider Psychiatry & Neurology Psychiatry
DX: F11.20 Opioid dependence, uncomplicated (principal)
CPT/HCPCS: 80307

== ENCOUNTER → 2019-03-03 16:26 | Outpatient (CLI) | payer MEDICAID, SELFPAY ==
[2019-03-03 18:29] LABS: M R Staph aureus DNA By PCR Negative (Negative); Probe Check PASS; Specimen Processing Control PASS
== END ==
PROVIDERS: Family Provider Family Medicine Geriatric Medicine; PCP Family Medicine Geriatric Medicine; Visit Provider Family Medicine Geriatric Medicine
DX: B95.62 Methicillin resistant Staphylococcus aureus infection as the cause of diseases classified elsewhere (principal)
CPT/HCPCS: 87641

== ENCOUNTER → 2019-05-19 | Outpatient (CLI) | payer MEDICAID, SELFPAY ==
[2019-05-19 16:50] LABS: Amphetamine Urine VISTA NEGATIVE (<1000 ng/mL); Barbiturate Urine VISTA NEGATIVE (< 200 ng/mL); Benzodiazepine Urine VISTA NEGATIVE (< 200 ng/mL); Cocaine Urine VISTA NEGATIVE (< 300 ng/mL); Ecstacy Urine VISTA NEGATIVE (< 500 ng/mL); Methadone Urine VISTA NEGATIVE (< 300 ng/mL); PCP Urine VISTA NEGATIVE (< 25 ng/mL); THC Urine VISTA NEGATIVE (< 50 ng/mL); Vista UDS pH Range 5
== END | disposition home or self-care (01) ==
PROVIDERS: Family Provider Family Medicine Geriatric Medicine; PCP Family Medicine Geriatric Medicine; Referring Provider Psychiatry & Neurology Psychiatry; Visit Provider Psychiatry & Neurology Psychiatry
DX: F11.20 Opioid dependence, uncomplicated (principal)
CPT/HCPCS: 80307

== ENCOUNTER → 2019-06-08 08:24 | Outpatient (CLI) | payer MEDICAID, SELFPAY ==
--- NOTE | 2019-06-08 08:28 | CT_ITS ---
STUDY: CT WRIST WITHOUT CONTRAST, RIGHT REASON FOR EXAM: Female, 58 years old. RT WRIST PAIN-BASE OF RT THUMB, FELL 6 WKS AGO RADIATION DOSAGE (If Supplied By Facility): CTDIvol = ( 24.58 ) mGy, DLP = ( 413.10 ) mGycm. Individualized dose optimization techniques were used for this CT.? TECHNIQUE: Axial CT images of the [ right wrist ] were performed without contrast followed by sagittal and coronal reconstructions. COMPARISON: None. FINDINGS: No fractures or dislocations are seen. Carpal rows are normally aligned. Joint spaces are intact. No well-defined soft tissue hematomas or fluid collections are seen. CT/Extremity Upper without Contra IMPRESSION: No acute osseous injury is evident. Electronically Signed: Jeremy Servin MD at 16:55 EDT Tel , Service support ,
== END ==
PROVIDERS: Family Provider Family Medicine Geriatric Medicine; PCP Family Medicine Geriatric Medicine; Referring Provider Family Medicine Geriatric Medicine; Visit Provider Family Medicine Geriatric Medicine
DX: M25.539 Pain in unspecified wrist (principal)
CPT/HCPCS: 73200

== ENCOUNTER → 2019-07-31 11:26 | Outpatient (CLI) | payer MEDICAID, SELFPAY ==
[2019-07-31 14:56] LABS: Amphetamine Urine VISTA NEGATIVE (<1000 ng/mL); Barbiturate Urine VISTA NEGATIVE (< 200 ng/mL); Benzodiazepine Urine VISTA NEGATIVE (< 200 ng/mL); Cocaine Urine VISTA NEGATIVE (< 300 ng/mL); Ecstacy Urine VISTA NEGATIVE (< 500 ng/mL); Methadone Urine VISTA NEGATIVE (< 300 ng/mL); PCP Urine VISTA NEGATIVE (< 25 ng/mL); THC Urine VISTA NEGATIVE (< 50 ng/mL); Vista UDS pH Range 5
== END ==
PROVIDERS: Family Provider Family Medicine Geriatric Medicine; PCP Family Medicine Geriatric Medicine; Referring Provider Psychiatry & Neurology Psychiatry; Visit Provider Psychiatry & Neurology Psychiatry
DX: F11.20 Opioid dependence, uncomplicated (principal)
CPT/HCPCS: 80307

== ENCOUNTER → 2019-08-24 16:33 | Outpatient (CLI) | payer MEDICAID, SELFPAY ==
[2019-08-24 17:46] LABS: Absolute Lymphocyte Count 3.84 X10^3/uL (0.83-4.51); Absolute Neutrophil Count 4.1 X10^3/uL (2.0-7.7); Basophil# 0.03 X10^3/uL; Basophil% 0.3 % (0-1); Eosinophil# 0.18 X10^3/uL; Hematocrit 40.5 % (37-47); Hemoglobin 14.1 g/dL (12.0-15.0); Lymphocyte # 3.84 X10^3/ul (4.0); Lymphocyte % 43.7 % (19-41); Mean Corp Hgb Conc 34.8 g/dL (32-36); Mean Platelet Vol. 11.1 fl (6.2-12.0); Monocyte# 0.67 X10^3/uL; Monocyte% 7.6 % (0-10); NRBC Flagged by Analyzer 0 % (0-5); Neutrophil # 4.05 X10^3/uL (2.7-7.7); Neutrophil % 46.2 % (47-70); Platelet Count 217 K/mm3 (150-450); RBC Distribution Width CV 12.1 % (11.6-14.6); RBC Distribution Width SD 40.8 fl (35.1-43.9); White Blood Count 8.8 K/mm3 (4.4-11.0)
[2019-08-24 18:24] LABS: AST(SGOT) 35 U/L (15-37); Alanine Aminotransfer ALT/SGPT 53 U/L (13-56); Albumin, Serum 3.6 g/dL (3.2-5.0); Alkaline Phosphatase 135 U/L (45-117); Anion Gap 5 (5-15); BUN 10 mg/dL (7-18); BUN/Creat Ratio 13.3 RATIO (10-20); Calcium,Total 8.8 mg/dL (8.5-10.1); Chloride 102 mmol/L (98-107); Creatinine, Serum 0.75 mg/dL (0.55-1.02); EST Glomerular Filtration Rate 84 mL/min (>60); Est Glom Filt Rate - Afr Amer 102 mL/min (>60); Globulin 3.6 g/dL (2.2-4.2); Glucose 121 mg/dL (74-106); Potassium 2.8 mmol/L (3.5-5.1); Protein, Total 7.2 g/dL (6.4-8.2); Sodium Level 139 mmol/L (136-145); Thyroid Stim Hormone (TSH) 1.05 uIU/mL (0.358-3.74)
== END ==
PROVIDERS: Family Provider Family Medicine Geriatric Medicine; PCP Family Medicine Geriatric Medicine; Visit Provider Family Medicine Geriatric Medicine
DX: E87.6 Hypokalemia (principal); R53.83 Other fatigue
CPT/HCPCS: 36415; 80053; 84443; 85025

== ENCOUNTER → 2020-01-05 | Outpatient (CLI) | payer MEDICAID, SELFPAY ==
[2020-01-05 15:27] LABS: Amphetamine Urine VISTA NEGATIVE (<1000 ng/mL); Barbiturate Urine VISTA NEGATIVE (< 200 ng/mL); Benzodiazepine Urine VISTA NEGATIVE (< 200 ng/mL); Cocaine Urine VISTA NEGATIVE (< 300 ng/mL); Ecstacy Urine VISTA NEGATIVE (< 500 ng/mL); Methadone Urine VISTA NEGATIVE (< 300 ng/mL); PCP Urine VISTA NEGATIVE (< 25 ng/mL); THC Urine VISTA NEGATIVE (< 50 ng/mL); Vista UDS pH Range 6
== END | disposition home or self-care (01) ==
PROVIDERS: PCP Family Medicine Geriatric Medicine; Referring Provider Psychiatry & Neurology Psychiatry; Visit Provider Psychiatry & Neurology Psychiatry
DX: F11.20 Opioid dependence, uncomplicated (principal)
CPT/HCPCS: 80307

== ENCOUNTER → 2020-06-20 | Outpatient (CLI) | payer MEDICAID, SELFPAY ==
[2020-06-20 16:08] LABS: Absolute Lymphocyte Count 3.38 X10^3/uL (0.83-4.51); Absolute Neutrophil Count 4.3 X10^3/uL (2.0-7.7); Basophil# 0.05 X10^3/uL; Basophil% 0.6 % (0-1); Eosinophil# 0.18 X10^3/uL; Eosinophils% 2.1 % (0-5); Hematocrit 48.3 % (37-47); Hemoglobin 16.4 g/dL (12.0-15.0); Lymphocyte # 3.38 X10^3/ul (4.0); Lymphocyte % 39.8 % (19-41); Mean Corpuscular Hgb 32.7 pg (27.0-32.0); Mean Corpuscular Volume 96.2 fL (81-99); Mean Platelet Vol. 11.2 fl (6.2-12.0); Monocyte# 0.55 X10^3/uL; Monocyte% 6.5 % (0-10); NRBC Flagged by Analyzer 0 % (0-5); Neutrophil # 4.31 X10^3/uL (2.7-7.7); Neutrophil % 50.8 % (47-70); Platelet Count 219 K/mm3 (150-450); RBC Distribution Width CV 12.3 % (11.6-14.6); RBC Distribution Width SD 43.1 fl (35.1-43.9); Red Blood Count 5.02 M/mm3 (4.2-5.4); White Blood Count 8.5 K/mm3 (4.4-11.0)
[2020-06-20 16:45] LABS: ALB/GLOB Ratio 0.9 RATIO (0.9-2.4); AST(SGOT) 85 U/L (15-37); Alanine Aminotransfer ALT/SGPT 90 U/L (13-56); Albumin, Serum 3.8 g/dL (3.2-5.0); Alkaline Phosphatase 185 U/L (45-117); Anion Gap 8 (5-15); BUN 7 mg/dL (7-18); Calcium,Total 9.1 mg/dL (8.5-10.1); Chloride 101 mmol/L (98-107); Creatinine, Serum 0.78 mg/dL (0.55-1.02); EST Glomerular Filtration Rate 81 mL/min (>60); Est Glom Filt Rate - Afr Amer 97 mL/min (>60); Globulin 4.4 g/dL (2.2-4.2); Glucose 163 mg/dL (74-106); Potassium 3.7 mmol/L (3.5-5.1); Protein, Total 8.2 g/dL (6.4-8.2); Sodium Level 138 mmol/L (136-145); Thyroid Stim Hormone (TSH) 1.81 uIU/mL (0.358-3.74)
[2020-06-21 11:01] LABS: Hemoglobin A1c 6.2 % (3.8-5.6)
== END | disposition home or self-care (01) ==
LOC: POLAB3 13:06
PROVIDERS: Family Provider Family Medicine Geriatric Medicine; PCP Family Medicine Geriatric Medicine; Visit Provider Family Medicine Geriatric Medicine
DX: E87.6 Hypokalemia (principal); R53.83 Other fatigue; R73.09 Other abnormal glucose; R74.8 Abnormal levels of other serum enzymes
CPT/HCPCS: 36415; 80053; 83036; 84443; 85025

== ENCOUNTER → 2020-07-21 | Outpatient (CLI) | payer MEDICAID, SELFPAY | END | disposition home or self-care (01) | LOC: POLAB3 15:22 | PROVIDERS: PCP Family Medicine Geriatric Medicine; Visit Provider Family Medicine Geriatric Medicine | DX: R74.8 Abnormal levels of other serum enzymes (principal); R73.09 Other abnormal glucose | CPT/HCPCS: 36415; 86704; 86705; 86706; 86708; 86709; 86803; 87340 ==

== ENCOUNTER → 2020-08-16 | Outpatient (CLI) | payer MEDICAID, SELFPAY ==
--- NOTE | 2020-08-16 10:58 | US_ITS ---
STUDY: ABDOMINAL ULTRASOUND - RIGHT UPPER QUADRANT REASON FOR VISIT: Female, 59 years old abnormal liver enzymes TECHNIQUE: Ultrasound evaluation of the right upper quadrant was performed with real-time and static cabrera-scale imaging. TECHNICAL QUALITY: Adequate. COMPARISON: CT of abdomen and pelvis dated June 27, 2016 FINDINGS: Liver: The liver is mildly to moderately enlarged measuring 19.9 cm. There is increased echogenicity consistent with fatty infiltration. The bile ducts are within normal limits. There is hepatic color flow. The direction of portal flow is hepatopetal. There is no demonstrated mass lesion. Gallbladder: The patient is status post cholecystectomy. Common Bile Duct (C.B.D.): The common bile duct measures 7.6 mm. Pancreas: Unremarkable visualized aspects of the pancreas. There is normal echogenicity of the pancreas. There is no demonstrated pancreatic mass or cyst. Right Kidney: Normal size of the right kidney. The right kidney measures 11.4 x 6.1 x 5.2 cm. Normal renal cortex. The right cortex measures cm. There is no demonstrated renal mass or cyst. There is no right hydronephrosis. US/Abdomen Limited IMPRESSION: Mild to moderately enlarged fatty liver Electronically Signed: Brock Cee MD at 23:03 EDT , Service support ,
== END | disposition home or self-care (01) ==
LOC: US 10:56
PROVIDERS: PCP Family Medicine Geriatric Medicine; Referring Provider Family Medicine Geriatric Medicine; Visit Provider Family Medicine Geriatric Medicine
DX: R74.8 Abnormal levels of other serum enzymes (principal)
CPT/HCPCS: 76705

== ENCOUNTER → 2020-08-24 | Outpatient (CLI) | payer MEDICAID, SELFPAY ==
--- NOTE | 2020-08-24 13:00 | US_ITS ---
HISTORY: Palpable lump in right neck. Thyroid ultrasound. The patient had a CT scan of the neck today as well. Comparison PET CT is from August 09, 2014. At that time the thyroid gland was not enlarged and did not contain any perceived lesions, however, study was a noncontrasted CT. Findings: 65 images: The right lobe of the thyroid gland measures 2.7 x 5.9 x 2.3 cm. The right lobe of the thyroid gland is heterogeneous. The right lobe of the thyroid gland is vascular and color Doppler imaging. Within the right lobe of the thyroid gland there is a mass. This mass measures 3 x 3.1 x 2.2 cm. This nodule is solid. It is hyperechoic to isoechoic. It is wider than tall. It has smooth margins. There is no associated comet tail artifact or calcifications. This has a TI RADS score of 3. Mildly suspicious. As its size is greater than 2.5 cm, FNA and biopsy should be considered. Also within the right lobe of the thyroid gland there is another lesion. This lesion is within the inferior portion of the right lobe of the thyroid gland, adjacent to the largest nodule measured. It measures 6 x 10 x 10 mm. It is solid or almost completely solid. It is hypoechoic. It is wider than tall. Has smooth margins. There are no associated comet tail artifacts or calcifications. This has a TI RADS score of 4. This is moderately suspicious. As it is 1 cm it should be followed. The left lobe of the thyroid gland is also heterogeneous. The left lobe of the thyroid gland measures 5.7 x 2 x 2.1 cm. Within the left lobe of the thyroid gland there is a nodule. This nodule measures 2.2 x 1.7 x 1.9 cm. It is solid. It is hyperechoic or isoechoic. It is taller than wide. It has smooth margins. It has no comet tail artifact or calcifications. It is vascular on color Doppler imaging. This has a TI RADS score of 4. Moderately suspicious. As its size is greater than 1.5 cm, FNA or biopsy should be considered. US/Thyroid IMPRESSION: 3 thyroid nodules. 2 on the right, and one on the left. Due to the size and appearance of the larger lesions on the right and left FNA or biopsy should be considered. Due to the small size of the smaller lesion on the right, follow-up should be considered. at 0613 Reported and signed by: Rusty Mane MD Electronically Signed: Rusty Mane MD at 6:12 EDT Tel , Service support ,
--- NOTE | 2020-08-24 13:01 | CT_ITS ---
STUDY: CT SOFT TISSUE NECK WITH CONTRAST REASON FOR EXAM: Female, 59 years old. Right neck fullness x 4 weeks, no palpable mass. Hx COPD, emphysema, interstitial lung disease. RADIATION DOSAGE (If Supplied By Facility): CTDIvol = ( 18.04 ) mGy, DLP = ( 545.21 ) mGycm TECHNIQUE: The patient was scanned in a multi-detector CT scanner. High resolution transaxial imaging was performed following intravenous administration of IV 75mL Isovue-300. Sagittal and coronal images were reconstructed. Individualized dose optimization techniques were used for this CT. COMPARISON: None. FINDINGS: There is a 1.3 cm x 0.9 cm x 1.4 cm) cystic nodule in the subcutaneous tissues in the right side of the neck overlying the inferior aspect of the right parotid gland. Normal bilateral parotid glands. 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 Normal bilateral parapharyngeal spaces. Normal bilateral carotid spaces. Normal bilateral sublingual and submandibular glands and spaces. Normal visualized nasopharynx. Normal retropharyngeal space. Normal perivertebral space. Normal visualized bilateral faucial tonsils. The visualized tongue, tongue base and oropharynx are normal. There are minimally enlarged lymph nodes of the neck, with preservation of normal barbara architecture, consistent with a reactive lymph hyperplasia. There is no demonstrated solid or cystic mass lesion. There is no abnormal contrast enhancement. Normal epiglottis, bilateral vallecula and hypopharynx. The pre-epiglottic and paraglottic adipose spaces are normal. Normal visualized bilateral piriform sinuses, aryepiglottic folds, vocal cords, and arytenoid-cricoid articulations. Normal subglottic trachea. Diffuse inhomogeneous enlargement of both lobes of the thyroid worse on the right side. There is a dominant 1.3 cm x 1.5 cm cystic nodule in the right lobe. Normal visualized pulmonary apices. Normal visualized paranasal sinuses. There is multilevel degenerative changes of the cervical spine. CT/Soft Tissue Neck WITH Contrast IMPRESSION: There is a 1.3 cm x 0.9 cm x 1.4 cm predominantly cystic nodule in the subcutaneous tissue overlying the inferior aspect of the right lobe of the parotid gland. Diffuse homogeneous enlargement of both lobes of thyroid more prominent on the right side with a dominant 1.3 cm x 1.5 solid cystic nodule in the right lobe. Electronically Signed: Alo Garcia, at 15:06 EDT , Service support ,
== END | disposition home or self-care (01) ==
LOC: CT 12:58
PROVIDERS: PCP Family Medicine Geriatric Medicine; Referring Provider Family Medicine Geriatric Medicine; Visit Provider Family Medicine Geriatric Medicine
DX: E04.1 Nontoxic single thyroid nodule (principal); R22.0 Localized swelling, mass and lump, head
CPT/HCPCS: 70491; 76536; Q9967

== ENCOUNTER → 2020-09-01 | Outpatient (CLI) | payer MEDICAID, SELFPAY | END | disposition home or self-care (01) | LOC: POLAB3 16:25 | PROVIDERS: PCP Family Medicine Geriatric Medicine; Visit Provider Family Medicine Geriatric Medicine | DX: R74.8 Abnormal levels of other serum enzymes (principal) | CPT/HCPCS: 36415; 86704; 86705; 86706; 86708; 86709; 86803; 87340; 87522 ==

== ENCOUNTER → 2020-09-14 10:26 | Outpatient (CLI) | payer MEDICAID, SELFPAY ==
[2020-09-13 14:20] VITALS: BMI 34.0
--- NOTE | 2020-09-14 10:29 | US_ITS ---
STUDY: ABDOMINAL ULTRASOUND - ELASTOGRAPHY REASON FOR VISIT: Female, 59 years old. Fatty infiltration of the liver. TECHNIQUE: Liver stiffness measurements were obtained on a [employer] RS 85 ultrasound machine using a CA 1-7 probe following the SRU guidelines. 3 valid measurements were obtained using a 2-D-SWE method. TheIQR/M was 12% suggesting a quality data set. TECHNICAL QUALITY: Adequate. COMPARISON: None. FINDINGS: Liver: There is no demonstrated mass lesion. Median liver stiffness measured 12.1 kPa. This corresponds toF3-F4 score. This is suggestive of compensated and advanced chronic liver disease.. US/Elastography Parenchyma/Organ IMPRESSION: Liver stiffness measures 12.1 kPa compatible with F3-F4 Metavir score. Electronically Signed: Alo Garcia, at 15:16 EST , Service support ,
== END ==
PROVIDERS: PCP Family Medicine Geriatric Medicine; Referring Provider Family Medicine Geriatric Medicine; Visit Provider Family Medicine Geriatric Medicine
DX: K76.0 Fatty (change of) liver, not elsewhere classified (principal)
CPT/HCPCS: 76981

== ENCOUNTER → 2020-12-07 | Outpatient (CLI) | payer MEDICAID, SELFPAY ==
--- NOTE | 2020-12-07 14:00 | ASPS_PTH ---
PATIENT: IAN NGO LOC: [facility] U#:[id number] AGE/SX: 59/F ROOM: RE12/07/[address]: Dr. Yfn Guallpa MD : 1960 BED: DIS: 12/07/2020 SPEC #: [id number] RECD: 12/07/20 16:25 STATUS: HENRIETTA REJose #: [id number] FABIOLA: 12/07/20 14:[address]: Yfn Guallpa DEPT: CYTOLOGY RECD BY: Key Barrera ENTERED: 12/09/20 05:59 SP TYPE: ASPIRATION OTHR DR: Dr. Andry Beatty MD Tissues: A - Thyroid gland, NOS B - Thyroid gland, NOS C - Thyroid gland, NOS Procedures: Special Stain Group II Cytology Other HEADER OPERATION: Ultrasound-guided fine needle aspiration bilateral thyroid PRE-OP DIAGNOSIS: Multiple thyroid nodules TISSUE SUBMITTED: A - Right inferior thyroid slides x6, B - Right thyroid dominant nodule slides x6, C - Left thyroid slides x6 DIAGNOSIS CYTOLOGY A. Right inferior thyroid nodule, ultrasound-guided FNA (smears): Consistent with benign follicular nodule. Adequate for evaluation. See comment. B. Right thyroid dominant nodule, ultrasound-guided FNA (smears): Consistent with benign follicular nodule. Adequate for evaluation. C. Left thyroid nodule, ultrasound-guided FNA (smears): Consistent with benign follicular nodule. Adequate for evaluation. SJ:alka 12/09/2020 COMMENT A. The specimen is cellular and does not show significant colloid, the findings may represent adenomatoid nodule. Correlation with clinical, radiologic findings and appropriate follow up are necessary. CYTOLOGY STUDY Slides are reviewed. CYTOLOGY GROSS A - Received are six smears labeled with the patient's name and designated per the requisition as right inferior thyroid. Submitted for staining. B - Received are six smears labeled with the patient's name and designated per the requisition as right thyroid dominant nodule. Submitted for staining. C - Received are six smears labeled with the patient's name and designated per the requisition as left inferior thyroid. Submitted for staining. / alka 12/08/20 TC:5 CPT: 98630 x3
== END | disposition home or self-care (01) ==
LOC: LABSPEC 16:31
PROVIDERS: PCP Family Medicine Geriatric Medicine; Referring Provider Surgery; Visit Provider Surgery
DX: E04.2 Nontoxic multinodular goiter (principal)
CPT/HCPCS: 88161; 88313

== ENCOUNTER → 2020-12-22 13:03 | Outpatient (CLI) | payer MEDICAID, SELFPAY ==
[2020-09-22 07:46] VITALS: BMI 33.8
--- NOTE | 2020-12-22 13:04 | CT_ITS ---
STUDY: LOW DOSE CT LUNG CANCER SCREENING REASON FOR EXAM: Female, 59 years old. TOBACCO ABUSE, 2PPD X 30YRS RADIATION DOSAGE (If Supplied By Facility): CTDIvol = ( 3.02 ) mGy, DLP = ( 99.30 ) mGycm TECHNIQUE: No contrast was administered. Low dose technique was utilized (average mAS-38 and kVp 120). 1.25 mm axial source images with a slice interval of 1.25-mm were reconstructed in lung windows. 2.5 mm axial source images with a slice interval of 2.5-mm were reconstructed in lung windows. 5.0 mm axial source images with a slice interval of 5.0-mm were reconstructed in soft tissue windows. Nodule measured using lung windows on PACS and/or independent workstation with automated measurement of minimum and maximum diameter. Nodule measurement reported as average diameter rounded to the nearest whole number. Growth is defined as an increase ins size of greater than 1.5 mm. COMPARISON: None. NODULES: There is a 1.2 cm x 0.6 cm irregular mass in the anterior aspect of the left upper lobe abutting the pleural surface on axial image #45 and coronal image #131. Mild degree of increased markings in the medial anterior aspect of the left upper lobe abutting the mediastinum suggestive of a tree in bud appearance most likely secondary to scarring. A similar appearance is seen along the posterior lateral aspect of the right upper lobe as well as in the anterior aspect of the lingular segment of the left upper lobe. A calcified granuloma is seen in the anterior aspect of the right lower lobe abutting the right minor fissure as seen on axial image #153 and coronal image #151. Emphysema: Hyperinflation. Increased markings at the lung apices suggestive of scarring. Aorta: Atherosclerotic plaque formation of the aortic arch. Coronary arteries: Coronary artery calcification. Mediastinal nodes: Small mediastinal lymph nodes. Other chest and abdominal findings: CT/Low Dose CT Lung Screening IMPRESSION: Lung-RADS category 4A - Screening at 3 months wiht LDCT or evaluation with PET/CT may be used. IMPORTANT NOTES FOR USE: ACR Lung-RADS Version 1.0 Assessment Categories Release Date: March 01, 2014 Category: Coded 0-4 bases on nodule(s) with highest degree of suspicion. Negative screen is defined as categories 1 and 2; a positive screen is defined as categories 3 and 4. Category 3 and 4A nodules that are unchanged on interval CT should be coded as category 2, and individuals returned to screening in 12 months. Category 4X: Category 3 or 4 nodules with additional imaging findings that increase the suspicion of lung cancer, such as spiculation, GGN that doubles in size in 1 year, enlarged lymph notes, etc. Category Modifiers: S (significant finding unrelated to lung cancer) and C (prior history of treated lung cancer) may be added to the 0-4 Lung-RADS Electronically Signed: Alo Garcia MD at 13:43 EST , Service support ,
[2020-12-22 13:30] VITALS: PULSE 110; PULSE 111; PULSE 122; PULSE 126; PULSE 128; PULSE 130; PULSE 98; O2SAT 90; O2SAT 91; O2SAT 92; O2SAT 93; O2SAT 94; O2SAT 95
--- NOTE | 2020-12-22 13:36 | CPS ---
Patient stated prior to test that she does wear 3L of oxygen as needed, and at night.
--- NOTE | 2020-12-22 17:03 | PCM.PSN.6M ---
PSN 6 Minute Walk Test - 6 Minute Walk Test 6 Minute Walk Test: 6 Minute Walk Test PSN:6-Minute Walk Test Start: 12/22/20 13:32 Freq: Status: Active Protocol: RESP.6MINW Document 12/22/20 13:30 HJ (Rec: 12/22/20 13:36 [id number]) 6 Minute Walk Test Date Performed 12/22/20 Time Performed 13:30 Height 5 ft 7 in Weight: 93.894 kg Weight in Pounds 207.[address]: Fernando Lundy FIO2 (% Oxygen) 21 Assistive device used: None Pre-test Oxygen Delivery Method Room Air Pulse Ox (%) 94 Pulse Rate (60-100 beats/min) 98 Dyspnea Aileen Scale (0-10) 0 Exertion Aileen Scale (6-20) 6 1st minute Oxygen Delivery Method Room Air Pulse Ox (%) 91 Pulse Rate (60-100 beats/min) 111 H 2nd minute Oxygen Delivery Method Room Air Pulse Ox (%) 90 Pulse Rate (60-100 beats/min) 122 H 3rd minute Oxygen Delivery Method Room Air Pulse Ox (%) 91 Pulse Rate (60-100 beats/min) 126 H 4th minute Oxygen Delivery Method Room Air Pulse Ox (%) 90 Pulse Rate (60-100 beats/min) 130 H 5th minute Oxygen Delivery Method Room Air Pulse Ox (%) 93 Pulse Rate (60-100 beats/min) 128 H 6th minute Oxygen Delivery Method Room Air Pulse Ox (%) 92 Pulse Rate (60-100 beats/min) 130 H Post-test Oxygen Delivery Method Room Air Pulse Ox (%) 95 Pulse Rate (60-100 beats/min) 110 H Dyspnea Aileen Scale (0-10) 3 Exertion Aileen Scale (6-20) 14 Full Laps Walked 21 Partial Lap, Number of Tiles Walked 24 Total Distance Walked (ft) 1263 12/22/20 13:36 Cardiopulmonary Services by Rosa Griffin Patient stated prior to test that she does wear 3L of oxygen as needed, and at night. Initialized on 12/22/20 13:36 - END OF NOTE - Interpretation Interpretation: The patient was able to ambulate 1263 feet over the course of 6 minutes on room air with no assistive devices or breaks. The patient did have a significant desaturation as low as 90% with an associated heart rate of 130 bpm. These findings are consistent with a cardiopulmonary limitation exercise tolerance. - Recommendations Recommendations: The patient requires no supplemental oxygen at this time, but will need to be followed closely given level of desaturation. Patient would likely also benefit from a cardiac evaluation given significant tachycardia for age.
--- NOTE | 2020-12-22 17:05 | PCM.PSN.6M ---
PSN 6 Minute Walk Test - 6 Minute Walk Test 6 Minute Walk Test: 6 Minute Walk Test PSN:6-Minute Walk Test Start: 12/22/20 13:32 Freq: Status: Active Protocol: RESP.6MINW Document 12/22/20 13:30 HJ (Rec: 12/22/20 13:36 [id number]) 6 Minute Walk Test Date Performed 12/22/20 Time Performed 13:30 Height 5 ft 7 in Weight: 93.894 kg Weight in Pounds 207.[address]: Fernando Lundy FIO2 (% Oxygen) 21 Assistive device used: None Pre-test Oxygen Delivery Method Room Air Pulse Ox (%) 94 Pulse Rate (60-100 beats/min) 98 Dyspnea Aileen Scale (0-10) 0 Exertion Aileen Scale (6-20) 6 1st minute Oxygen Delivery Method Room Air Pulse Ox (%) 91 Pulse Rate (60-100 beats/min) 111 H 2nd minute Oxygen Delivery Method Room Air Pulse Ox (%) 90 Pulse Rate (60-100 beats/min) 122 H 3rd minute Oxygen Delivery Method Room Air Pulse Ox (%) 91 Pulse Rate (60-100 beats/min) 126 H 4th minute Oxygen Delivery Method Room Air Pulse Ox (%) 90 Pulse Rate (60-100 beats/min) 130 H 5th minute Oxygen Delivery Method Room Air Pulse Ox (%) 93 Pulse Rate (60-100 beats/min) 128 H 6th minute Oxygen Delivery Method Room Air Pulse Ox (%) 92 Pulse Rate (60-100 beats/min) 130 H Post-test Oxygen Delivery Method Room Air Pulse Ox (%) 95 Pulse Rate (60-100 beats/min) 110 H Dyspnea Aileen Scale (0-10) 3 Exertion Aileen Scale (6-20) 14 Full Laps Walked 21 Partial Lap, Number of Tiles Walked 24 Total Distance Walked (ft) 1263 12/22/20 13:36 Cardiopulmonary Services by Rosa Griffin Patient stated prior to test that she does wear 3L of oxygen as needed, and at night. Initialized on 12/22/20 13:36 - END OF NOTE - Interpretation Interpretation: The patient was noted to have a saturation of 89% at rest. However, patient saturation slightly improved with ambulation. Patient was only able to travel 133 feet over the course of 6 minutes on room air with no assistive devices, but 6 breaks. Patient did report dizziness from hyperventilation. - Recommendations Recommendations: Technically no supplemental oxygen would be indicated at this time. However, patient with minimal distance travel to multiple breaks with symptomatic findings.
== END ==
PROVIDERS: PCP Family Medicine Geriatric Medicine; Referring Provider Internal Medicine Critical Care Medicine; Visit Provider Internal Medicine Critical Care Medicine
DX: J44.9 Chronic obstructive pulmonary disease, unspecified (principal); F17.200 Nicotine dependence, unspecified, uncomplicated; Z12.2 Encounter for screening for malignant neoplasm of respiratory organs
CPT/HCPCS: 71271; 94618

== ENCOUNTER → 2021-01-09 14:23 | Outpatient (CLI) | payer MEDICAID, SELFPAY ==
[2021-01-06 13:25] VITALS: BMI 31.4
[2021-01-09 15:22] LABS: Absolute Lymphocyte Count 3.95 X10^3/uL (0.83-4.51); Absolute Neutrophil Count 5.7 X10^3/uL (2.0-7.7); Basophil# 0.05 X10^3/uL; Basophil% 0.5 % (0-1); Eosinophil# 0.18 X10^3/uL; Eosinophils% 1.7 % (0-5); Hematocrit 49.8 % (37-47); Lymphocyte # 3.95 X10^3/ul (4.0); Lymphocyte % 37.5 % (19-41); Mean Corp Hgb Conc 34.1 g/dL (32-36); Mean Corpuscular Hgb 32.4 pg (27.0-32.0); Mean Platelet Vol. 10.6 fl (6.2-12.0); Monocyte# 0.68 X10^3/uL; Monocyte% 6.5 % (0-10); NRBC Flagged by Analyzer 0 % (0-5); Neutrophil # 5.65 X10^3/uL (2.7-7.7); Neutrophil % 53.6 % (47-70); Platelet Count 245 K/mm3 (150-450); Red Blood Count 5.24 M/mm3 (4.2-5.4); White Blood Count 10.5 K/mm3 (4.4-11.0)
[2021-01-09 15:42] LABS: ALB/GLOB Ratio 0.9 RATIO (0.9-2.4); AST(SGOT) 30 U/L (15-37); Alanine Aminotransfer ALT/SGPT 37 U/L (13-56); Albumin, Serum 3.9 g/dL (3.2-5.0); Alkaline Phosphatase 177 U/L (45-117); Anion Gap 7 (5-15); BUN 10 mg/dL (7-18); BUN/Creat Ratio 9.7 RATIO (10-20); Calcium,Total 9.4 mg/dL (8.5-10.1); Chloride 103 mmol/L (98-107); Creatinine, Serum 1.03 mg/dL (0.55-1.02); EST Glomerular Filtration Rate 58 mL/min (>60); Est Glom Filt Rate - Afr Amer 71 mL/min (>60); Globulin 4.4 g/dL (2.2-4.2); Glucose 128 mg/dL (74-106); Potassium 3.8 mmol/L (3.5-5.1); Protein, Total 8.3 g/dL (6.4-8.2); Sodium Level 142 mmol/L (136-145); Thyroid Stim Hormone (TSH) 2.76 uIU/mL (0.358-3.74)
== END ==
PROVIDERS: PCP Family Medicine Geriatric Medicine; Visit Provider Family Medicine Geriatric Medicine
DX: R53.83 Other fatigue (principal)
CPT/HCPCS: 36415; 80053; 84443; 85025

== ENCOUNTER → 2021-01-31 14:38 | Outpatient (CLI) | payer MEDICAID, SELFPAY ==
[2021-01-06 13:25] VITALS: BMI 31.4
--- NOTE | 2021-01-31 15:00 | PET_ITS ---
EXAMINATION: FDG PET/CT INDICATIONS: A 60-year-old female with reported history of pulmonary nodularity. COMPARISON EXAMINATION: CT of the chest report dated 12/22/20 INDEX LESION SIZE SUV INTERPRETATION Left mid anteromedial lung-left upper lobe 19.6-mm (frame 188) 1.2 Quantitative criteria for viable neoplasm are not fulfilled, sequential radiologic investigation recommended TECHNIQUE: Following the intravenous administration of 13.64 mCi of F-18 deoxyglucose via the right forearm, multiplanar image acquisitions of the neck, chest, abdomen and pelvis to level of mid thigh, obtained at one hour post radiopharmaceutical administration contemporaneously interpreted with the current CT of the neck, chest, abdomen and pelvis to level of mid thigh, dated 01/31/[address] of the chest report dated 12/22/20 reveal: SERUM GLUCOSE LEVEL: 87 mg/dl. FINDINGS: 1. Subtle increased glucose metabolism is defined in the left mid anteromedial lung-left upper lobe generating a calculated maximal standard uptake value of 1.2. The maximal axial diameter of the corresponding non-calcified density on review of CT of the chest dated 01/31/21 is 19.6-mm (transverse). 2. Normal physiologic distribution of the radiopharmaceutical is apparent in the hepatic (1.5) and splenic parenchyma, both renal units, bladder and visualized intestinal tract. The visualized portion of the cerebral cortical-subcortical structures demonstrate symmetric and preserved glucose metabolism. Prominent tracer concentration is observed in the anterior aspect of the oral cavity to the left of the midline without evidence of corresponding soft tissue on review of CT of the neck dated 01/31/21 and appears in proximity to dental hardware placement most consistent with a component of metallic reconstruction artifact. Prominent skeletal muscle and left ventricular myocardial distribution of radiopharmaceutical is noted commensurate with the [place]. Pertinent CT findings are as follows: CHEST: There are no additional parenchymal densities-nodules defined in the right and left hemithorax with discernible increased FDG concentration. There is atherosclerotic calcification defined in the thoracic aorta without evidence of dilatation-aneurysm formation. Coronary arterial calcification is defined. Bilateral axillary soft tissue densities with fatty hilus are ametabolic. ABDOMEN AND PELVIS: The gallbladder is surgically absent. There is atherosclerotic calcification defined in the abdominal aorta without evidence of dilatation-aneurysm formation. Pelvic arterial calcification is observed. Right and left inguinal soft tissue densities with fatty hilus are ametabolic. Colonic diverticulosis is encountered without evidence of diverticulitis. The uterus appears surgically absent. Apparent calcification is defined in the bilateral lower hemipelvis. SKELETAL: Degenerative changes are noted in the cervical, thoracic and lumbar spine without evidence of increased radiopharmaceutical concentration. PET/PET/CT Tumor Base -Thigh Init IMPRESSION: 1. NEGATIVE EXAMINATION. There is no definitive quantitative scintigraphic evidence of viable neoplasm. 2. Mild increased tracer uptake observed in the left mid anteromedial lung-left upper lobe does not fulfill quantitative criteria for viable neoplasm. (Fleming et al, Annals of Internal Medicine, 138:724, 2003). 3. Metabolic and/or anatomic stability may be ensured in the left mid anteromedial lung-left upper lobe abnormality with repeat FDG PET study and/or CT of the thorax in 9-12 weeks if clinically indicated. (Xiu, Journal of Nuclear Medicine 45:88, P2004 Silke, Seminars in Thoracic and Cardiovascular Surgery 14:292, 2001). Electronic Signature Tejas Handley D.O. Accurate Quantification of SUVs for this report are calculated using the exclusive [employer]? Technology.??Exclusive [place]. Patent [employer]? Technology ([place].S. Patent No. [phone] [phone]). Electronically Signed: Tejas Handley DO at 23:35 EDT Tel , Service support ,
== END ==
PROVIDERS: PCP Family Medicine Geriatric Medicine; Referring Provider Nurse Practitioner Acute Care; Visit Provider Nurse Practitioner Acute Care
DX: R91.1 Solitary pulmonary nodule (principal)
CPT/HCPCS: 78815; A9552

== ENCOUNTER → 2021-03-20 10:46 | Outpatient (CLI) | payer MEDICAID, SELFPAY ==
[2020-09-22 07:46] VITALS: BMI 33.8
[2021-01-06 13:25] VITALS: BMI 31.4
--- NOTE | 2021-03-20 13:17 | PFT ---
INTRODUCTION: The patient is a 60-year-old female that presents for pulmonary function studies secondary to a diagnosis of COPD. Respiratory therapy reports good patient effort. Bronchodilators were used during testing. INTERPRETATION: Forced expiration spirometry demonstrates the presence of a moderately severe large airways obstructive ventilatory defect. There was no significant response to aerosolized bronchodilators. Spirograms are of good quality and plateau gradually indicating slow emptying of the lungs. Body plethysmography was performed and reveals lung volumes to be within normal limits. Diffusing capacity by single breath CO is reduced at 49% of predicted. IMPRESSION: Irreversible moderately severe large airways obstructive ventilatory defect with symmetric reduction in diffusing capacity.
== END ==
PROVIDERS: PCP Family Medicine Geriatric Medicine; Referring Provider Internal Medicine Critical Care Medicine; Visit Provider Internal Medicine Critical Care Medicine
DX: J44.9 Chronic obstructive pulmonary disease, unspecified (principal)
CPT/HCPCS: 94060; 94726; 94729

== ENCOUNTER → 2021-06-14 07:36 | Outpatient (CLI) | payer MEDICAID, SELFPAY ==
[2021-04-04 07:56] VITALS: BMI 32.0
--- NOTE | 2021-06-14 07:37 | CT_ITS ---
STUDY: CT CHEST WITHOUT CONTRAST REASON FOR EXAM: Female, 60 years old. follow known nodule and gt; 8 mm. COPD and emphysema. RADIATION DOSAGE (If Supplied By Facility): CTDIvol = ( 13.95 ) mGy, DLP = ( 463.50 ) mGycm TECHNIQUE: Transaxial imaging was performed without the administration of intravenous contrast material. Multiplanar coronal and sagittal images were reformatted. Individualized dose optimization techniques were used for this CT. COMPARISON: Comparison is made with prior examination dated 12/22/2020. FINDINGS: Small bilateral axillary lymph nodes. The largest in the left axilla measures 1.4 cm. Heterogeneous enlargement of the thyroid gland more prominent in the inferior aspect of the right lobe of the thyroid. Stable calcified granuloma in the anterior aspect of the right lower lobe abutting the right minor fissure. Stable scarring at the lung apices. The previously seen 1.2 cm x 0.6 cm soft tissue density in the anterior aspect of the left upper lobe abutting the anterior pleural surface is not seen at this time. The previously seen infiltrate/atelectasis in the anterior aspect of the left upper lobe has resolved as well. There is no demonstrated pleural abnormality. There are calcifications of the coronary arteries. There are multiple small lymph nodes within the mediastinum, which are normal in size and morphology most compatible with reactive lymph hyperplasia. Normal hilar regions. Normal unenhanced pulmonary arteries. There is atherosclerotic calcification of the aortic arch with tortuosity and elongation of the aortic arch and descending thoracic aorta. There are multi-level degenerative changes of the thoracic spine. There is no demonstrated abnormality of the visualized upper abdomen. CT/Chest without Contrast IMPRESSION: The previously seen nodular density in the anterior aspect of the left upper lobe abutting the anterior pleural surface as result. The previously seen increased markings in the anterior aspect of the lingular segment of the left upper lobe has resolved as well. Electronically Signed: Alo Garcia MD at 8:57 EDT , Service support ,
== END ==
PROVIDERS: PCP Family Medicine Geriatric Medicine; Referring Provider Nurse Practitioner Acute Care; Visit Provider Nurse Practitioner Acute Care
DX: R91.1 Solitary pulmonary nodule (principal)
CPT/HCPCS: 71250

== ENCOUNTER 2021-10-17 08:55 | Emergency (ER) | payer MEDICAID, SELFPAY ==
[2021-10-17 08:57] VITALS: BP 118/89; PULSE 94; RESP 15; TEMP 36.9; O2SAT 97; BMI 32.8
[2021-10-17 09:01] VITALS: BP 118/89; PULSE 94; RESP 15; TEMP 36.9; O2SAT 97
--- NOTE | 2021-10-17 09:05 | RAD_ITS ---
STUDY: X-RAY CHEST REASON FOR EXAM: Female, 60 years old. Chest pain, mental status change TECHNIQUE: Single AP portable view of the chest. COMPARISON: 08/01/2016 FINDINGS: EKG leads overlie the chest The lungs are clear and expanded. There is no demonstrated pleural abnormality. Normal size heart. Normal mediastinum and mike. Normal visualized pulmonary arteries. Normal visualized aortic arch and descending thoracic aorta. Normal visualized thoracic spine. Normal visualized ribs, clavicles, and shoulders. There is no demonstrated abnormality of the visualized soft tissue structures of the upper abdomen. RAD/Chest 1 View (Portable) IMPRESSION: Normal x-ray examination of the chest. Electronically Signed: John Simental MD at 10:44 EST , Service support ,
--- NOTE | 2021-10-17 09:05 | CT_ITS ---
STUDY: CT BRAIN WITHOUT CONTRAST REASON FOR EXAM: Female, 60 years old. MS change RADIATION DOSAGE (If Supplied By Facility): CTDIvol = ( 44.99 ) mGy, DLP = ( 812.98 ) mGycm TECHNIQUE: Transaxial CT imaging of the brain was performed without administration of intravenous contrast material. Individualized dose optimization techniques were used for this CT. COMPARISON: No relevant priors. FINDINGS: Normal soft tissue structures. Normal calvarium. Normal size ventricles and extra-axial spaces for the patient''s age. Normal white matter tracts of the cerebral hemispheres. Normal basal ganglia and thalami. Normal brainstem. Normal cerebellum. There is no intracranial hemorrhage. There are no findings of an acute ischemic infarction. Normal visualized paranasal sinuses. CT/Brain/Head without Contrast IMPRESSION: Chronic involutional changes of the brain. No acute hemorrhage Electronically Signed: John Simental MD at 10:16 EST , Service support ,
--- NOTE | 2021-10-17 09:06 | CT_ITS ---
STUDY: CT ABDOMEN AND PELVIS WITH CONTRAST REASON FOR EXAM: Female, 60 years old. Diffuse abdominal pain RADIATION DOSAGE (If Supplied By Facility): CTDIvol = ( 16.50 ) mGy, DLP = ( 1166.79 ) mGycm TECHNIQUE: Transaxial images were obtained from the dome of the diaphragm to the symphysis pubis without oral contrast. IV 100mL Isovue-300 was administered. Sagittal and coronal images were reconstructed. Individualized dose optimization techniques were used for this CT. COMPARISON: None. FINDINGS: The visualized lung bases are unremarkable. The visualized portions of the heart are within normal limits. There is decreased attenuation of the liver consistent with steatosis. There are surgical clips in the gallbladder fossa consistent with a prior cholecystectomy. Normal spleen. Normal pancreas. Normal bilateral adrenal glands. Normal right kidney. Normal left kidney. Normal visualized stomach. Normal small intestine. There are multiple colonic diverticula consistent with diverticulosis. The appendix is visualized and appears normal. Appendix seen on coronal recon images 90 through 102 There is diffuse atherosclerotic calcification of the abdominal aorta, without a demonstrated aneurysm. Normal inferior vena cava. Normal retroperitoneum. Normal urinary bladder. There is absence of the uterus consistent with a prior hysterectomy. Normal abdominal wall. There are diffuse degenerative changes of the visualized lumbar spine, and pelvis. CT/Abdomen/Pelvis W IV Cont ONLY IMPRESSION: Fatty liver, no discrete lesion Diverticulosis, no CT evidence of acute diverticulitis No free intraperitoneal fluid, air, or suspicious adenopathy Normal appendix visualized Electronically Signed: John Simental MD at 10:16 EST , Service support ,
--- NOTE | 2021-10-17 09:09 | EDS_ITS ---
HPI History of Present Illness Chief Complaint: Alt LOC Detail of Chief Complaint: Diffuse abdominal pain Informant: patient Onset/Context/Timing Current Severity: Mild Maximum Severity: Moderate Narrative Narrative: 60-year-old female somewhat of a limited informant. Past medical history of CAD and COPD. Reportedly per EMS who brought her in daughter called because she was having diffuse abdominal pain and complaining of diffuse body pain. Then she developed decreasing mental status. No other history. Patient denies vomiting, diarrhea or fever. She denies any recent hospitalizations. Prior similar symptoms: No Recent Illness/Hospitalization: No PFSH PFSH Medical History (Updated 10/17/21 @ 10:[address] Trenton Sarmiento MD) Angina pectoris Anxiety CAD (coronary artery disease) Chronic bronchitis Chronic pain Depression Diverticulitis Dyspnea Emphysema lung Hepatitis C HLD (hyperlipidemia) Hyperhidrosis Interstitial lung disease Multiple thyroid nodules Neuropathic pain Palpitations Rheumatoid arthritis Stage 2 moderate COPD by GOLD classification Tobacco abuse Home Medications amitriptyline 100 mg PO QHS 01/26/14 [History Last Taken Unknown] atorvastatin 80 mg tablet 80 mg PO DAILY 07/16/18 [History Last Taken Unknown] buprenorphine 4 mg-naloxone 1 mg sublingual film 1 film SUBLINGUAL .COMPLEX 07/16/18 [History Last Taken Unknown] cholecalciferol (vitamin D3) 1,250 mcg (50,000 unit) capsule 50,000 unit PO QWEEK 07/16/18 [History Last Taken Unknown] gabapentin 800 mg tablet 800 mg PO .qid tab 07/16/18 [History Last Taken Unknown] lorazepam 0.5 mg tablet 0.5 mg PO TID tab 07/16/18 [History Last Taken Unknown] lurasidone 60 mg tablet 60 mg PO DAILY 09/13/20 [History Last Taken Unknown] albuterol sulfate 90 mcg/actuation aerosol inhaler 2 puff INHALATION Q4H PRN #18 g 01/06/21 [Rx Last Taken Unknown] glycopyrrolate 9 mcg-formoterol 4.8 mcg HFA aerosol inhaler 2 puff INHALATION QAM AND QPM #1 inh 01/06/21 [Rx Last Taken Unknown] Allergy/AdvReac Type Severity Reaction Status Date / Time No Known Allergies Allergy Verified 06/15/21 07:20 Family History Mother CAD (coronary artery disease) stents Hypertension Heart disease Sister CAD (coronary artery disease) Diabetes Father Diabetes Heart disease Hypertension Surgical History H/O foot surgery H/O total hysterectomy History of bilateral carpal tunnel release History of lung surgery History of tonsillectomy Social History Smoking Status: Current every day smoker tobacco type: cigarettes Tobacco: How many years used: 54 alcohol intake: never substance use type: does not use ROS ROS ED ROS Narrative Denies recent illness. Abdominal pain. Review of Systems ROS Unobtainable: due to mental condition Constitutional Constitutional ED: Denies chills or fever(s) Eyes Eyes: Denies change in vision ENT ENT ED: Denies ear pain Cardiovascular Cardiovascular: Denies chest pain Respiratory/Chest Respiratory/Chest: Denies cough or dyspnea Gastrointestinal Gastrointestinal: Reports abdominal pain; Denies diarrhea, nausea or vomiting Genitourinary Genitourinary ED: Denies dysuria Musculoskeletal Musculoskeletal: Denies myalgias Integumentary Denies rash Neurologic Neurologic: Denies headache(s) Psychiatric Psychiatric: Denies depression Endocrine Endocrinology: Denies polyuria Allergic/Immunologic Allergic/Immunologic ED: Denies urticaria EXAM Physical Exam Narrative Exam Narrative: Denies female vital signs stable afebrile. Pulse ox 97% on room air no hypoxia. Complaining of pain. Moaning. HEENT exam unremarkable atraumatic. Moist remembers. Neck nontender no lymphadenopathy. Lungs clear to auscultation bilaterally. Heart regular rate and rhythm rate about 90 no murmur. Abdomen soft nondistended normal bowel sounds. Diffusely tender. No peritoneal signs. No localizing exquisite tenderness. Moving all 4 extremities . Normal veterinary receptionist strength. Dorsi plantarflexion intact. Nontender no edema. Back nontender. Neurologically she is awake. She answers questions and. Follows commands. She does know she is in the hospital. She knows her own name. There is no slurring of speech. There is no weakness to either upper or lower extremities. Const Vital Signs: 10/17/21 08:57 10/17/21 09:01 10/17/21 10:28 Temperature 98.5 F 98.5 F 98.1 F Temperature Source Temporal Temporal Temporal Pulse Rate 94 94 88 Respiratory Rate 15 15 18 Respiratory Effort Normal Non-Labored Respiratory Pattern Normal Blood Pressure 118/89 H 118/89 H 138/79 H Blood Pressure Mean 98 98 98 Pulse Ox 97 97 97 Oxygen Delivery Method Room Air Room Air Room Air Positive well nourished, well developed and obese; Negative for cachectic, contractures or unkempt General Appearance ED: well developed; Negative for unkempt, cachectic, contractures, cyanotic, diaphoretic, NAD or pallor Nutritional Appearance: obese; Negative for cachectic HEENT Reports moist mucous membranes Negative for trauma or tenderness Eyes PERRL and EOMs intact bilaterally Neck no lymphadenopathy, supple and no JVD General: Negative for tenderness Chest Wall inspection of chest normal and palpation of chest normal Resp normal respiratory effort and clear to auscultation bilaterally Effort and Inspection: Negative for pain with movement Auscultation: Negative for rales, rhonchi or wheezes Cardio regular rate, regular rhythm, S1 normal heart sound, S2 normal heart sound and no murmurs GI normal to inspection, nondistended, normoactive bowel sounds, non-distended and no masses; Negative for non-tender Inspection: Negative for abdominal distention Auscultation: normoactive bowel sounds Palpation: soft and tender; Negative for guarding or rebound tenderness present Back/Spine no CVA tenderness General Back: Negative for CVA tenderness Extremity normal to inspection General Extremety ED: Negative for edema or tenderness General Extremity: Negative for edema Neuro No oriented x3 Sensorium / Orientation: alert and orientation impaired; Negative for lethargic or stuporous Motor Exam: strength 5/5 throughout Psych mental status grossly normal Appearance: Negative for unkempt Mood & Affect: Negative for depressed or tearful Skin no rashes or lesions noted General Skin Exam: Negative for jaundice or pallor MDM MDM MDM Narrative Medical decision making narrative: 60-year-old female complaining abdominal pain. Also decreased mental status. We treated with IV morphine and Zofran. Screening labs be obtained. Also a CAT scan of her head due to the mental status change. A CT of her abdomen and pelvis due to the abdominal pain. Her vital signs are stable. Her blood sugar was in the 120 range. Patient's mom is present in the room. I spoke to her at length. She states he had a very difficult year. Patient recently lost her brother several months ago. Her father had a stroke in the last several months. The mom's had frequent falls. 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 Currently is under the care of a design painter and has her on Suboxone. Repeat exam at 10:41 AM no change. Patient is awake and alert. I went over her test results and imaging results with both the patient and her mother. They understand there is nothing else to be done in the emergency department. She will be given a dose of IV Toradol for pain and discharged to home with outpatient follow-up with her primary care physician Dr. Beatty. Lab Data Attestation: I reviewed the patient's lab results. Lab results narrative: CBC shows white count 9. Hemoglobin is 17.8 platelets of 324. Urinalysis is negative. No signs of infection. Chemistries are unremarkable gap at 9 normal BUN and creatinine. Normal liver enzymes. Glucose 137. Urine tox screen is negative. Labs: Laboratory Results - last 24 hr 10/17/21 10/17/21 10/17/21 09:03 09:03 09:15 WBC 9.7 RBC 5.55 H Hgb 17.8 H Hct 50.4 H MCV 90.8 MCH 32.1 H MCHC 35.3 RDW Std Deviation 39.8 RDW Coeff of Evelyn 12.0 Plt Count 324 MPV 9.1 Immature Gran % (Auto) 0.400 Neut % (Auto) 73.2 H Lymph % (Auto) 20.7 [place] % (Auto) 5.2 Eos % (Auto) 0.2 Baso % (Auto) 0.3 Absolute Neuts (auto) 7.1 Absolute Lymphs (auto) 2.01 Nucleated RBC % 0 Sodium 141 Potassium 3.5 Chloride 105 Carbon Dioxide 27.0 Anion Gap 9 BUN 12 Creatinine 0.76 Estim Creat Clear Calc 71.72 Est GFR (MDRD) Af Amer 99 Est GFR (MDRD) Non-Af 82 BUN/Creatinine Ratio 15.7 Glucose 137 H Calcium 9.9 Total Bilirubin 0.50 AST 19 ALT 26 Alkaline Phosphatase 138 H Total Protein 9.0 H Albumin 3.9 Globulin 5.1 H Albumin/Globulin Ratio 0.8 L Lipase 33 L Urine Color Yellow Urine Clarity Clear Urine pH 7.0 Ur Specific [place] 1.010 Urine Protein 30 H Urine Glucose (UA) Normal Urine Ketones 15 H Urine Occult Blood 10 H Urine Nitrite Negative Urine Bilirubin Negative Urine Urobilinogen Normal Ur Leukocyte Esterase 25 H Urine RBC 0-5 SEEN Urine WBC 0-5 SEEN Ur Squamous Epith Cells 0-5 SEEN Urine Bacteria RARE Urine Mucus 2+ Urine Opiates Screen Urine Methadone Screen Ur Barbiturates Screen Ur Phencyclidine Scrn Ur Amphetamines Screen U Methamphetamin-MDMA U Benzodiazepines Scrn Urine Cocaine Screen U Cannabinoids Screen Ur Drug Screen Comment 10/17/21 09:15 WBC RBC Hgb Hct MCV MCH MCHC RDW Std Deviation RDW Coeff of [place]elyn Plt Count MPV Immature Gran % (Auto) Neut % (Auto) Lymph % (Auto) [place] % (Auto) Eos % (Auto) Baso % (Auto) Absolute Neuts (auto) Absolute Lymphs (auto) Nucleated RBC % Sodium Potassium Chloride Carbon Dioxide Anion Gap BUN Creatinine Estim Creat Clear Calc Est GFR (MDRD) Af Amer Est GFR (MDRD) Non-Af BUN/Creatinine Ratio Glucose Calcium Total Bilirubin AST ALT Alkaline Phosphatase Total Protein Albumin Globulin Albumin/Globulin Ratio Lipase Urine Color Urine Clarity Urine pH Ur Specific [place] Urine Protein Urine Glucose (UA) Urine Ketones Urine Occult Blood Urine Nitrite Urine Bilirubin Urine Urobilinogen Ur Leukocyte Esterase Urine RBC Urine WBC Ur Squamous Epith Cells Urine Bacteria Urine Mucus Urine Opiates Screen NEGATIVE Urine Methadone Screen NEGATIVE Ur Barbiturates Screen NEGATIVE Ur Phencyclidine Scrn NEGATIVE Ur Amphetamines Screen NEGATIVE U Methamphetamin-MDMA NEGATIVE U Benzodiazepines Scrn NEGATIVE Urine Cocaine Screen NEGATIVE U Cannabinoids Screen NEGATIVE Ur Drug Screen Comment Radiography Chest X-Ray - ED: 1 View, Read by ED Physician, Normal, Heart, Lungs, Mediastinum, Bony Structures, No Acute Disease and Chronic Changes Diagnostic Testing: Clinical Impression(s) from Imaging Studies Brain CT 10/17/21 09:05 IMPRESSION: Chronic involutional changes of the brain. No acute hemorrhage Electronically Signed: John Simental MD at 10:16 EST , Service support , Abdomen/Pelvis CT 10/17/21 09:06 IMPRESSION: Fatty liver, no discrete lesion Diverticulosis, no CT evidence of acute diverticulitis No free intraperitoneal fluid, air, or suspicious adenopathy Normal appendix visualized Electronically Signed: John Simental MD at 10:16 EST , Service support , Chest x-ray, portable, single view interpreted by myself the radiologist shows no acute abnormality. Normal cardiac silhouette and mediastinum. No infiltrates. CT brain read by the radiologist shows no acute abnormality. Chronic changes. CT abdomen shows chronic changes but no acute process. Discharge Plan Triage Chief Complaint: Alt LOC ED Provider: Trenton Sarmiento Dx/Rx/DC Orders Clinical Impression: Chronic pain, History of COPD, History of coronary artery disease Instructions: ED Chronic Pain Prescriptions: No Action gabapentin [Neurontin] 800 mg tablet 800 mg PO .qid RF: 0 buprenorphine-naloxone [Suboxone] 4-1 mg film 1 film SUBLINGUAL .COMPLEX RF: 0 atorvastatin [Lipitor] 80 mg tablet 80 mg PO DAILY RF: 0 lorazepam [Ativan] 0.5 mg tablet 0.5 mg PO TID RF: 0 cholecalciferol (vitamin D3) 50,000 unit capsule 50,000 unit PO QWEEK RF: 0 Latuda 60 mg tablet 60 mg PO DAILY RF: 0 Bevespi Aerosphere 9-4.8 mcg HFA aerosol inhaler 2 puff INHALATION QAM AND QPM Qty: 1 RF: 6 Ventolin HFA 90 mcg/actuation HFA aerosol inhaler 2 puff Inhalation Q4H PRN (Reason: shortness of breath or wheezing) Qty: 18 RF: 6 amitriptyline 50 MG tablet 100 mg PO QHS RF: 0 Primary Care Provider: Andry Beatty Chi Referrals: Andry Beatty Chi, MD [Primary Care Provider] - 3-5 Days Activity Restrictions/Additional Instructions: Plenty of fluids and rest. Motrin and Tylenol for pain. Call and follow-up with your primary care provider. Your CAT scan of your brain and abdomen today were unremarkable as was your chest x-ray. Your labs are unremarkable. Disposition Disposition: Home, Self Care
[2021-10-17] MEDS: 0.9% Normal Saline 1,000 ML 1000 ML IV (09:20)
[2021-10-17] MEDS: Ondansetron 4 MG/2 ML Vial IV (09:21)
[2021-10-17] MEDS: Morphine 4 MG/ML Syringe IV (09:21)
[2021-10-17 09:22] LABS: Color, Urine Yellow (Yellow); Glucose, Dipstick Normal (Normal); Ketone-Dipstick 15 mg/dl (Negative); Leukocyte Esterase-Dipstick 25 /ul (Negative); Nitrite-Dipstick Negative (Negative); Occult Blood-Urine 10 /ul (Negative); Protein-Dipstick 30 mg/dl (Negative); Urine Bilirubin Dipstick Negative (Negative); Urine Clarity Clear (Clear); Urine Urobilinogen Normal (Normal)
[2021-10-17 09:29] LABS: Absolute Lymphocyte Count 2.01 X10^3/uL (0.83-4.51); Absolute Neutrophil Count 7.1 X10^3/uL (2.0-7.7); Basophil# 0.03 X10^3/uL; Basophil% 0.3 % (0-1); Eosinophil# 0.02 X10^3/uL; Eosinophils% 0.2 % (0-5); Hematocrit 50.4 % (37-47); Hemoglobin 17.8 g/dL (12.0-15.0); Lymphocyte # 2.01 X10^3/ul (0.83-4.51); Lymphocyte % 20.7 % (19-41); Mean Corp Hgb Conc 35.3 g/dL (32-36); Mean Corpuscular Hgb 32.1 pg (27.0-32.0); Mean Corpuscular Volume 90.8 fL (81-99); Mean Platelet Vol. 9.1 fl (6.2-12.0); Monocyte# 0.51 X10^3/uL; Monocyte% 5.2 % (0-10); NRBC Flagged by Analyzer 0 % (0-5); Neutrophil # 7.12 X10^3/uL (2.7-7.7); Neutrophil % 73.2 % (47-70); Platelet Count 324 K/mm3 (150-450); RBC Distribution Width SD 39.8 fl (35.1-43.9); Red Blood Count 5.55 M/mm3 (4.2-5.4); White Blood Count 9.7 K/mm3 (4.4-11.0)
[2021-10-17 09:38] LABS: Bacteria RARE /hpf (None Seen); Mucous, Urine 2+ /hpf (<or=2+); Red Blood Cells-Urine 0-5 SEEN /hpf (0-5); Squamous Epithelial Cells - UA 0-5 SEEN /hpf (5-10); White Blood Cells 0-5 SEEN /hpf (0-5)
[2021-10-17 09:41] LABS: ALB/GLOB Ratio 0.8 RATIO (0.9-2.4); AST(SGOT) 19 U/L (15-37); Alanine Aminotransfer ALT/SGPT 26 U/L (13-56); Albumin, Serum 3.9 g/dL (3.2-5.0); Alkaline Phosphatase 138 U/L (45-117); Anion Gap 9 (5-15); BUN 12 mg/dL (7-18); BUN/Creat Ratio 15.7 RATIO (10-20); Calcium,Total 9.9 mg/dL (8.5-10.1); Chloride 105 mmol/L (98-107); Creatinine, Serum 0.76 mg/dL (0.55-1.02); EST Glomerular Filtration Rate 82 mL/min (>60); Est Glom Filt Rate - Afr Amer 99 mL/min (>60); Estimated Creatinine Clearance 71.72 ml/min; Globulin 5.1 g/dL (2.2-4.2); Glucose 137 mg/dL (74-106); Lipase 33 U/L (73-393); Potassium 3.5 mmol/L (3.5-5.1); Sodium Level 141 mmol/L (136-145)
[2021-10-17 09:55] LABS: Amphetamine Urine VISTA NEGATIVE (<1000 ng/mL); Barbiturate Urine VISTA NEGATIVE (< 200 ng/mL); Benzodiazepine Urine VISTA NEGATIVE (< 200 ng/mL); Cocaine Urine VISTA NEGATIVE (< 300 ng/mL); Ecstacy Urine VISTA NEGATIVE (< 500 ng/mL); Methadone Urine VISTA NEGATIVE (< 300 ng/mL); PCP Urine VISTA NEGATIVE (< 25 ng/mL); THC Urine VISTA NEGATIVE (< 50 ng/mL); Vista UDS pH Range 7
[2021-10-17 10:28] VITALS: BP 138/79; PULSE 88; RESP 18; TEMP 36.7; O2SAT 97
[2021-10-17] MEDS: Ketorolac 30 MG/ML Syringe IV (11:06)
[2021-10-17 11:07] VITALS: BP 124/67; PULSE 71; RESP 15; TEMP 36.7; O2SAT 97
== END 2021-10-17 11:15 | disposition home or self-care (01) ==
PROVIDERS: Emergency Provider Emergency Medicine; PCP Family Medicine Geriatric Medicine
DX: R41.82 Altered mental status, unspecified (principal); R10.84 Generalized abdominal pain; G89.29 Other chronic pain; J44.9 Chronic obstructive pulmonary disease, unspecified; I25.119 Atherosclerotic heart disease of native coronary artery with unspecified angina pectoris; E04.2 Nontoxic multinodular goiter; M06.9 Rheumatoid arthritis, unspecified; E78.5 Hyperlipidemia, unspecified; F32.A Depression, unspecified; F41.9 Anxiety disorder, unspecified; F17.210 Nicotine dependence, cigarettes, uncomplicated
CPT/HCPCS: 70450; 71045; 74177; 80053; 80307; 81001; 83690; 85025; 96361; 96374; 96375; 99285; J7030; P9612; Q9967; J2405

== ENCOUNTER 2021-12-15 11:28 | Outpatient (CLI) | payer MEDICAID, SELFPAY | END 2021-12-15 23:59 | disposition home or self-care (01) | LOC: POLAB3 11:33 | PROVIDERS: PCP Family Medicine Geriatric Medicine; Visit Provider Family Medicine Geriatric Medicine | DX: N39.0 Urinary tract infection, site not specified (principal) | CPT/HCPCS: 87077; 87086; 87088; 87186 ==

== ENCOUNTER 2021-12-27 07:52 | Outpatient (CLI) | payer MEDICAID, SELFPAY ==
[2021-12-27 10:39] LABS: Amphetamine Urine VISTA NEGATIVE (<1000 ng/mL); Barbiturate Urine VISTA NEGATIVE (< 200 ng/mL); Benzodiazepine Urine VISTA NEGATIVE (< 200 ng/mL); Cocaine Urine VISTA NEGATIVE (< 300 ng/mL); Ecstacy Urine VISTA NEGATIVE (< 500 ng/mL); Methadone Urine VISTA NEGATIVE (< 300 ng/mL); PCP Urine VISTA NEGATIVE (< 25 ng/mL); THC Urine VISTA NEGATIVE (< 50 ng/mL); Vista UDS pH Range 6
== END 2021-12-27 23:59 | disposition home or self-care (01) ==
LOC: MTLAB 07:54
PROVIDERS: PCP Family Medicine Geriatric Medicine; Referring Provider Psychiatry & Neurology Psychiatry; Visit Provider Psychiatry & Neurology Psychiatry
DX: F11.20 Opioid dependence, uncomplicated (principal)
CPT/HCPCS: 80307

== ENCOUNTER → 2022-06-04 | Outpatient (CLI) | payer MEDICAID, SELFPAY | END | disposition home or self-care (01) | PROVIDERS: PCP Family Medicine Geriatric Medicine; Referring Provider Psychiatry & Neurology Psychiatry; Visit Provider Psychiatry & Neurology Psychiatry | DX: F11.20 Opioid dependence, uncomplicated (principal) ==

== ENCOUNTER → 2022-06-18 | Outpatient (CLI) | payer MEDICAID, SELFPAY | END | disposition home or self-care (01) | PROVIDERS: PCP Family Medicine Geriatric Medicine; Referring Provider Psychiatry & Neurology Psychiatry; Visit Provider Psychiatry & Neurology Psychiatry | DX: F11.20 Opioid dependence, uncomplicated (principal) ==

== ENCOUNTER → 2022-08-09 | Outpatient (CLI) | payer MEDICAID, SELFPAY ==
[2022-08-09 18:33] LABS: Amphetamine Urine VISTA NEGATIVE (<1000 ng/mL); Barbiturate Urine VISTA NEGATIVE (< 200 ng/mL); Benzodiazepine Urine VISTA NEGATIVE (< 200 ng/mL); Cocaine Urine VISTA NEGATIVE (< 300 ng/mL); Ecstacy Urine VISTA NEGATIVE (< 500 ng/mL); Methadone Urine VISTA NEGATIVE (< 300 ng/mL); PCP Urine VISTA NEGATIVE (< 25 ng/mL); THC Urine VISTA NEGATIVE (< 50 ng/mL); Vista UDS pH Range 6
== END | disposition home or self-care (01) ==
LOC: MTLAB 15:28
PROVIDERS: PCP Family Medicine Geriatric Medicine; Referring Provider Psychiatry & Neurology Psychiatry; Visit Provider Psychiatry & Neurology Psychiatry
DX: F11.20 Opioid dependence, uncomplicated (principal)
CPT/HCPCS: 80307

== ENCOUNTER → 2022-12-17 | Outpatient (CLI) | payer MEDICAID, SELFPAY ==
[2022-12-17 18:56] LABS: Amphetamine Urine VISTA NEGATIVE (<1000 ng/mL); Barbiturate Urine VISTA NEGATIVE (< 200 ng/mL); Benzodiazepine Urine VISTA NEGATIVE (< 200 ng/mL); Cocaine Urine VISTA NEGATIVE (< 300 ng/mL); Ecstacy Urine VISTA NEGATIVE (< 500 ng/mL); Methadone Urine VISTA NEGATIVE (< 300 ng/mL); PCP Urine VISTA NEGATIVE (< 25 ng/mL); THC Urine VISTA NEGATIVE (< 50 ng/mL); Vista UDS pH Range 6
== END | disposition home or self-care (01) ==
PROVIDERS: PCP Family Medicine Geriatric Medicine; Referring Provider Psychiatry & Neurology Psychiatry; Visit Provider Psychiatry & Neurology Psychiatry
DX: F11.20 Opioid dependence, uncomplicated (principal)
CPT/HCPCS: 80307

== ENCOUNTER → 2023-01-16 | Outpatient (CLI) | payer MEDICAID, SELFPAY ==
--- NOTE | 2023-01-16 12:52 | RAD_ITS ---
STUDY: X-RAY CHEST REASON FOR EXAM: Female, 62 years old. COPD. Follow-up. TECHNIQUE: Frontal and lateral views of the chest. COMPARISON: October 17, 2021. FINDINGS: Hyperinflation unchanged. There is no demonstrated pleural abnormality. Stable borderline cardiomegaly with aortic tortuosity and calcification. Normal mediastinum and mike. Normal visualized pulmonary arteries. Thoracic osteopenia with mild spondylosis and slight increased kyphosis. Normal visualized ribs, clavicles, and shoulders. There is no demonstrated abnormality of the visualized soft tissue structures of the upper abdomen. RAD/Chest PA and Lateral IMPRESSION: Stable cardiomegaly with hyperinflation. No active or acute cardiopulmonary disease. Electronically Signed: Kvein Ozuna, at 13:06 EDT ,
== END | disposition home or self-care (01) ==
PROVIDERS: PCP Family Medicine Geriatric Medicine; Referring Provider Family Medicine Geriatric Medicine; Visit Provider Family Medicine Geriatric Medicine
DX: R68.83 Chills (without fever) (principal); J44.9 Chronic obstructive pulmonary disease, unspecified
CPT/HCPCS: 87635; 71046; 87804; 87807; C9803; U0003; U0005

== ENCOUNTER 2023-05-01 10:00 | Outpatient (CLI) | payer MEDICAID, SELFPAY | END 2023-05-01 23:59 | disposition home or self-care (01) | PROVIDERS: PCP Family Medicine Geriatric Medicine; Referring Provider Nurse Practitioner Acute Care; Visit Provider Nurse Practitioner Acute Care | DX: J44.9 Chronic obstructive pulmonary disease, unspecified (principal) | CPT/HCPCS: 94667 ==

== ENCOUNTER 2023-05-28 02:11 | Emergency (ER) | payer MEDICAID, SELFPAY ==
[2023-05-28 02:13] VITALS: BP 98/32; PULSE 90; RESP 16; TEMP 36.1; O2SAT 94; BMI 28.3
[2023-05-28 02:17] VITALS: BP 98/32; PULSE 90; RESP 16; TEMP 36.1; O2SAT 94
--- NOTE | 2023-05-28 02:23 | EKG12_ITS ---
Test Reason : DYSRHYTHMIA Blood Pressure : / mmHG Vent. Rate : 090 BPM Atrial Rate : 090 BPM P-R Int : 170 ms QRS Dur : 076 ms QT Int : 406 ms P-R-T Axes : 038 011 024 degrees QTc Int : 496 ms Normal sinus rhythm Prolonged QT Abnormal ECG Confirmed by RUPERTO CLARK, GREG ([id number]), rewrite editor NÉSTOR IZQUIERDO ([id number]) on 05/29/2023 9:33:10 AM Referred By: HARLEY Confirmed By:GREG HICKEY MD
--- NOTE | 2023-05-28 02:23 | RAD_ITS ---
EXAM: XR CHEST, 1 VIEW CLINICAL INDICATION: malaise TECHNIQUE: Frontal view of the chest. COMPARISON: Previous chest radiographs of 01/16/2023 and 10/17/2021. FINDINGS: LUNGS AND PLEURAL SPACES: Interval development of discoid atelectasis at the left lung base. Stable linear atelectasis and suture material at the right lung base. No patchy pneumonia or pleural effusion. No pneumothorax. HEART: Borderline cardiomegaly. Normal pulmonary vasculature. MEDIASTINUM: Stable calcification and minimal elongation of the thoracic aorta. BONES/JOINTS: Thoracic degenerative spurring. No acute pulmonary infiltrates. SOFT TISSUES: Mild elevation of the left hemidiaphragm. RAD/Chest 1 View (Portable) IMPRESSION: Interval development of left basilar atelectasis, otherwise stable. No pneumonia or pulmonary edema. Electronically Signed: Dago Goff MD at 3:17 EDT ,
[2023-05-28 02:24] VITALS: O2SAT 94
--- NOTE | 2023-05-28 02:24 | EX.ED.DYSGE1 ---
HPI History of Present Illness Chief Complaint: Shortness of Breath Detail of Chief Complaint: Just not feeling well Informant: patient and EMS Onset/Context/Timing Onset: Days Context: Gradual Onset Timing: Intermittent Current Severity: Mild Maximum Severity: Mild Narrative Narrative: 62-year-old female history of of COPD. Patient called the squad. Says she lives alone at home. Initially told the squad that she might be short of breath and change that and said she really just was not feeling well. Says been going on the last several days. She denies any nausea, vomiting, diarrhea. She denies any fever or chills. She denies any chest or abdominal pain. She is not real forthcoming with information. She denies any alcohol or drug use or abuse. Prior similar symptoms: No Recent Illness/Hospitalization: No [facility] Medical History (Updated 05/28/23 @ 03:[address] Trenton Sarmiento MD) Angina pectoris Anxiety CAD (coronary artery disease) Chronic bronchitis Chronic pain Depression Diverticulitis Dyspnea Emphysema lung Hepatitis C HLD (hyperlipidemia) Hyperhidrosis Interstitial lung disease Multiple thyroid nodules Neuropathic pain Palpitations Rheumatoid arthritis Stage 2 moderate COPD by GOLD classification Tobacco abuse Home Medications amitriptyline 50 mg tablet 100 mg PO QHS 01/26/14 [History Last Taken Unknown] atorvastatin 80 mg tablet (Lipitor) 80 mg PO DAILY 07/16/18 [History Last Taken Unknown] buprenorphine 4 mg-naloxone 1 mg sublingual film (Suboxone) 1 film sublingual .COMPLEX 07/16/18 [History Last Taken Unknown] cholecalciferol (vitamin D3) 1,250 mcg (50,000 unit) capsule 50,000 unit PO QWEEK 07/16/18 [History Last Taken Unknown] gabapentin 800 mg tablet (Neurontin) 800 mg PO .qid 07/16/18 [History Last Taken Unknown] lorazepam 0.5 mg tablet (Ativan) 0.5 mg PO TID 07/16/18 [History Last Taken Unknown] lurasidone 60 mg tablet (Latuda) 60 mg PO DAILY 09/13/20 [History Last Taken Unknown] baclofen 10 mg tablet 10 mg PO QHS PRN muscle spasm 08/24/22 [History Last Taken Unknown] ipratropium 0.5 mg-albuterol 3 mg (2.5 mg base)/3 mL nebulization soln 3 ml inhalation Q4H PRN PRN SOB &/OR WHEEZING #180 mL 08/24/22 [Rx Last Taken Unknown] Nebulizer Compressor #1 ea 01/09/23 [Rx Last Taken Unknown] PEP device #1 ea 05/01/23 [Rx Last Taken Unknown] PEP device #1 ea 05/01/23 [Rx Last Taken Unknown] budesonide 160 mcg-glycopyr 9 mcg-formot 4.8 mcg/actuation HFA inhaler (Breztri Aerosphere) 2 inh inhalation BID #10.7 grams 05/01/23 [Rx Last Taken Unknown] Allergy/AdvReac Type Severity Reaction Status Date / Time No Known Allergies Allergy Verified 05/28/23 02:19 Family History Mother CAD (coronary artery disease) stents Hypertension Heart disease Sister CAD (coronary artery disease) Diabetes Father Diabetes Heart disease Hypertension Surgical History H/O foot surgery H/O total hysterectomy History of bilateral carpal tunnel release History of lung surgery History of tonsillectomy Social History Smoking Status: Current every day smoker tobacco type: cigarettes Tobacco: How many years used: 54 alcohol intake: never substance use type: does not use ROS ROS ED ROS Narrative Not feeling well. No other specific complaint. Review of Systems ROS Unobtainable: Denies due to encephalopathy Constitutional Constitutional ED: Denies chills or fever(s) Eyes Eyes: Denies blurry vision ENT ENT ED: Denies ear pain Cardiovascular Cardiovascular: Denies chest pain or palpitations Respiratory/Chest Respiratory/Chest: Denies cough or dyspnea Gastrointestinal Gastrointestinal: Denies abdominal pain, constipation, diarrhea, melena, nausea or vomiting Genitourinary Genitourinary ED: Denies dysuria or hematuria Musculoskeletal Musculoskeletal: Denies arthralgias Integumentary Denies abscess Neurologic Neurologic: Denies headache(s) Psychiatric Psychiatric: Denies anxiety Endocrine Endocrinology: Denies cold intolerance Hematologic/Lymphatic Hematologic/Lymphatic: Reports none Allergic/Immunologic Allergic/Immunologic ED: Denies mouth swelling or tongue swelling EXAM Physical Exam Narrative Exam Narrative: 62-year-old female no acute distress. Her initial blood pressure was 98/32 I repeated it was 127/62. She does not look septic or toxic. She is in no distress. No family is present. H EENT exam unremarkable. Mildly dry mucous members. Neck nontender. No JVD. No lymphadenopathy. Lungs clear to auscultation bilaterally. Heart regular rhythm rate about 90 no murmur. Chest wall nontender. Abdomen soft nontender. Back nontender. Moving all 4 extremities. Calves are nontender without edema or cords. Equal symmetrical manager personnel selection strength. Dorsi plantarflexion intact. No track lima. No injuries. No cellulitis. Neurologically she is awake and alert. Const Vital Signs: 05/28/23 02:13 05/28/23 02:17 05/28/23 02:24 Temperature 97.0 F L 97.0 F L Temperature Source Temporal Temporal Pulse Rate 90 90 Respiratory Rate 16 16 Respiratory Effort Normal Respiratory Depth Normal Respiratory Pattern Normal Blood Pressure 98/32 L 98/32 L Blood Pressure Mean 54 54 Pulse Ox 94 94 Oxygen Delivery Method Room Air Room Air Room Air Positive well nourished and well developed; Negative for cachectic, contractures or unkempt General Appearance ED: well developed and NAD; Negative for unkempt, cachectic, contractures, cyanotic, diaphoretic or pallor Nutritional Appearance: Negative for cachectic HEENT Reports dry mucous membranes; Denies moist mucous membranes Negative for trauma or tenderness Mouth ED: Yes dry mucous membranes Mouth: dry mucous membranes Eyes PERRL and EOMs intact bilaterally General Eye ED: Negative for pale conjunctiva or scleral icterus Neck no lymphadenopathy, supple and no JVD General: Negative for tenderness Lymph Lymphatic: Negative for other Chest Wall inspection of chest normal and palpation of chest normal Chest: Negative for other Resp normal respiratory effort and clear to auscultation bilaterally Effort and Inspection: Negative for retractions Auscultation: Negative for rales, rhonchi or wheezes Cardio regular rate, regular rhythm, S1 normal heart sound, S2 normal heart sound and no murmurs GI normal to inspection, nondistended, normoactive bowel sounds, non-tender, non-distended and no masses Inspection: Negative for abdominal distention Auscultation: normoactive bowel sounds Palpation: soft; Negative for tender or guarding Bladder / Kidney Exam: No other Back/Spine no CVA tenderness General Back: Negative for CVA tenderness Cervical Spine: Negative for cervical spine tenderness Thoracic Spine / Upper Back: Negative for thoracic spinal tenderness Lumbar Spine / Lower Back: Negative for lumbar spinal tenderness Extremity normal to inspection General Extremety ED: Negative for edema or tenderness General Extremity: Negative for edema Neuro oriented x3 and CN's II-XII intact bilaterally Sensorium / Orientation: alert; Negative for orientation impaired, lethargic or stuporous Motor Exam: strength 5/5 throughout Psych mental status grossly normal Appearance: Negative for unkempt Attitude: No agitated Mood & Affect: anxious; Negative for depressed or tearful Skin no rashes or lesions noted, no wounds and skin turgor normal General Skin Exam: elasticity normal; Negative for jaundice or pallor Lesions: No lesion noted Rashes: No rashes noted Trauma: Negative for abrasion Wounds: Negative for wounds noted MDM MDM MDM Narrative Medical decision making narrative: Patient not feeling well. No specific complaints. Exam benign. Vital signs are stable afebrile. Initial blood pressure was a little low and I think is erroneous. Repeat prior to any IV fluids or anything was normal. Screening labs to be obtained. Repeat exam at 3:38 AM patient and I discussed all of her test results. Her labs and work-up was unremarkable. She is doing well. Repeat exam benign. Patient is comfortable being discharged home. Nurses are contacting family to pick her up. Lab Data Attestation: I reviewed the patient's lab results. Lab results narrative: CBC unremarkable. White count 8. H&H of 14 and 45. Platelets 233. BMP has a gap of 5. Normal BUN and creatinine. Glucose 124. Liver enzymes unremarkable. Urinalysis negative. Alcohol level negative. Chest x-ray chronic changes no acute process. Labs: Laboratory Results - last 24 hr 05/28/23 05/28/23 02:50 03:00 WBC 8.5 RBC 4.95 Hgb 14.9 Hct 45.0 MCV 90.9 MCH 30.1 MCHC 33.1 RDW Std Deviation 49.1 H RDW Coeff of Evelyn 14.9 H Plt Count 233 MPV 9.4 Immature Gran % (Auto) 0.400 Neut % (Auto) 70.3 H Lymph % (Auto) 21.3 Chambers % (Auto) 6.5 Eos % (Auto) 0.9 Baso % (Auto) 0.6 Absolute Neuts (auto) 6.0 Absolute Lymphs (auto) 1.81 Nucleated RBC % 0 Sodium 143 Potassium 3.7 Chloride 110 H Carbon Dioxide 28.0 Anion Gap 5 BUN 9 Creatinine 0.69 Estim Creat Clear Calc 83.26 Est GFR (MDRD) Af Amer 112 Est GFR (MDRD) Non-Af 92 BUN/Creatinine Ratio 13.1 Glucose 124 H Calcium 9.3 Total Bilirubin 0.50 AST 17 ALT 20 Alkaline Phosphatase 122 H Total Protein 7.8 Albumin 4.0 Globulin 3.8 Albumin/Globulin Ratio 1.1 Urine Color Yellow Urine Clarity Clear Urine pH 6.0 Ur Specific [place] 1.015 Urine Protein 15 H Urine Glucose (UA) Normal Urine Ketones 50 H Urine Occult Blood 25 H Urine Nitrite Negative Urine Bilirubin Negative Urine Urobilinogen Normal Ur Leukocyte Esterase 100 H Urine RBC 0-5 SEEN Urine WBC 0-5 SEEN Ur Squamous Epith Cells 10-25 SEEN Amorphous Sediment 1+ Urine Bacteria 3+ Urine Mucus 0 SEEN Ethyl Alcohol < 3.0 Radiography Chest X-Ray - ED: 1 View, Read by ED Physician, Read by Radiologist, Normal, Heart, Lungs, Mediastinum, Bony Structures, No Acute Disease and Chronic Changes Diagnostic Testing: Clinical Impression(s) from Imaging Studies Chest X-Ray 05/28/23 02:23 IMPRESSION: Interval development of left basilar atelectasis, otherwise stable. No pneumonia or pulmonary edema. Electronically Signed: Dago Goff MD at 3:17 EDT , Chest x-ray, portable, single view interpreted both by myself and the radiologist shows no acute abnormality. Chronic changes. Atelectasis. No pneumonia. Discharge Plan Triage Chief Complaint: Shortness of Breath ED Provider: Trenton Sarmiento Dx/Rx/DC Orders Clinical Impression: History of COPD, Malaise Prescriptions: No Action gabapentin [Neurontin] 800 mg tablet 800 mg PO .qid buprenorphine-naloxone [Suboxone] 4-1 mg film 1 film SUBLINGUAL .COMPLEX Patient Comments: 1 film SUBLINGUAL in the morning, half film in PM Rx Instructions: 1 film SUBLINGUAL in the morning, half film in PM atorvastatin [Lipitor] 80 mg tablet 80 mg PO DAILY lorazepam [Ativan] 0.5 mg tablet 0.5 mg PO TID cholecalciferol (vitamin D3) 50,000 unit capsule 50,000 unit PO QWEEK Latuda 60 mg tablet 60 mg PO DAILY Rx Instructions: must administer with food (at least 350 calories) baclofen 10 mg tablet 10 mg PO QHS PRN (Reason: muscle spasm) ipratropium-albuterol 0.5 mg-3 mg(2.5 mg base)/3 mL solution for nebulization 3 ml inhalation Q4H PRN PRN (Reason: SOB &/OR WHEEZING) Qty: 180 6RF (DME) PEP device See Rx Instructions .ROUTE .MEDSUPPLY Qty: 1 0RF Rx Instructions: with training Breztri Aerosphere 160-9-4.8 mcg/actuation HFA aerosol inhaler 2 inh inhalation BID Qty: 10.7 6RF (DME) PEP device See Rx Instructions .ROUTE .MEDSUPPLY Qty: 1 0RF Rx Instructions: with training amitriptyline 50 MG tablet 100 mg PO QHS (DME) Nebulizer Compressor See Rx Instructions .ROUTE .MEDSUPPLY Qty: 1 0RF Rx Instructions: As directed Primary Care Provider: Andry Beatty Chi Referrals: Andry Beatty Chi, MD [Primary Care Provider] - 3-5 Days if not improving Activity Restrictions/Additional Instructions: Your labs, chest x-ray and EKG were unremarkable tonight. Follow-up with your doctor if not improving or return if worse. Disposition Disposition: Home, Self Care
[2023-05-28 03:04] LABS: Mucous, Urine 0 SEEN /hpf (<or=2+)
[2023-05-28 03:05] LABS: Absolute Lymphocyte Count 1.81 X10^3/uL (0.83-4.51); Basophil# 0.05 X10^3/uL; Basophil% 0.6 % (0-1); Eosinophil# 0.08 X10^3/uL; Eosinophils% 0.9 % (0-5); Hemoglobin 14.9 g/dL (12.0-15.0); Lymphocyte # 1.81 X10^3/ul (0.83-4.51); Lymphocyte % 21.3 % (19-41); Mean Corp Hgb Conc 33.1 g/dL (32-36); Mean Corpuscular Hgb 30.1 pg (27.0-32.0); Mean Corpuscular Volume 90.9 fL (81-99); Mean Platelet Vol. 9.4 fl (6.2-12.0); Monocyte# 0.55 X10^3/uL; Monocyte% 6.5 % (0-10); NRBC Flagged by Analyzer 0 % (0-5); Neutrophil # 5.96 X10^3/uL (2.7-7.7); Neutrophil % 70.3 % (47-70); Platelet Count 233 K/mm3 (150-450); RBC Distribution Width CV 14.9 % (11.6-14.6); RBC Distribution Width SD 49.1 fl (35.1-43.9); Red Blood Count 4.95 M/mm3 (4.2-5.4); White Blood Count 8.5 K/mm3 (4.4-11.0)
[2023-05-28 03:06] LABS: Color, Urine Yellow (Yellow); Glucose, Dipstick Normal (Normal); Ketone-Dipstick 50 mg/dl (Negative); Leukocyte Esterase-Dipstick 100 /ul (Negative); Nitrite-Dipstick Negative (Negative); Occult Blood-Urine 25 /ul (Negative); Protein-Dipstick 15 mg/dl (Negative); Specific Gravity, Urine 1.015 (1.002-1.030); Urine Bilirubin Dipstick Negative (Negative); Urine Clarity Clear (Clear); Urine Urobilinogen Normal (Normal)
[2023-05-28 03:31] LABS: ALB/GLOB Ratio 1.1 RATIO (0.9-2.4); AST(SGOT) 17 U/L (15-37); Alanine Aminotransfer ALT/SGPT 20 U/L (13-56); Alkaline Phosphatase 122 U/L (45-117); Anion Gap 5 (5-15); BUN 9 mg/dL (7-18); BUN/Creat Ratio 13.1 RATIO (10-20); Calcium,Total 9.3 mg/dL (8.5-10.1); Chloride 110 mmol/L (98-107); Creatinine, Serum 0.69 mg/dL (0.55-1.02); EST Glomerular Filtration Rate 92 mL/min (>60); Est Glom Filt Rate - Afr Amer 112 mL/min (>60); Estimated Creatinine Clearance 83.26 ml/min; Globulin 3.8 g/dL (2.2-4.2); Glucose 124 mg/dL (74-106); Potassium 3.7 mmol/L (3.5-5.1); Protein, Total 7.8 g/dL (6.4-8.2); Sodium Level 143 mmol/L (136-145)
[2023-05-28 03:32] LABS: Alcohol, Blood (Medical)-Serum < 3.0 mg/dL
[2023-05-28 03:34] LABS: Amorphous Sediment 1+; Bacteria 3+ /hpf (None Seen); Red Blood Cells-Urine 0-5 SEEN /hpf (0-5); Squamous Epithelial Cells - UA 10-25 SEEN /hpf (5-10); White Blood Cells 0-5 SEEN /hpf (0-5)
[2023-05-28 03:42] VITALS: RESP 22; O2SAT 95
== END 2023-05-28 04:12 | disposition home or self-care (01) ==
PROVIDERS: Emergency Provider Emergency Medicine; PCP Family Medicine Geriatric Medicine; Visit Provider Emergency Medicine
DX: J43.9 Emphysema, unspecified (principal); I25.10 Atherosclerotic heart disease of native coronary artery without angina pectoris; F17.210 Nicotine dependence, cigarettes, uncomplicated; E78.5 Hyperlipidemia, unspecified; R53.81 Other malaise
CPT/HCPCS: 71045; 80053; 81001; 82077; 85025; 93005; 99285; A4216

== ENCOUNTER 2024-01-14 14:56 | Emergency (ER) | payer MEDICAID, SELFPAY ==
[2024-01-14] VITALS (7 sets, daily range): BP systolic 101–125; BP diastolic 64–89; PULSE 86–112; RESP 12–24; TEMP 36.1–36.7; O2SAT 93–98
--- NOTE | 2024-01-14 15:50 | CT_ITS ---
STUDY: CT BRAIN WITHOUT CONTRAST REASON FOR EXAM: Female, 63 years old. UNRESPONSIVE RADIATION DOSAGE (If Supplied By Facility): CTDIvol = ( 47.06 ) mGy, DLP = ( 907.97 ) mGycm TECHNIQUE: Transaxial CT imaging of the brain was performed without administration of intravenous contrast material. Individualized dose optimization techniques were used for this CT. COMPARISON: No relevant priors. FINDINGS: Normal soft tissue structures. Normal calvarium. Normal size ventricles and extra-axial spaces for the patient''s age. Normal white matter tracts of the cerebral hemispheres. Normal basal ganglia and thalami. Normal brainstem. Normal cerebellum. There is no intracranial hemorrhage. There are no findings of an acute ischemic infarction. Normal visualized paranasal sinuses. CT/Brain/Head without Contrast IMPRESSION: Normal unenhanced CT scan of the brain. Electronically Signed: Vish Rodriguez MD at 16:24 EDT ,
--- NOTE | 2024-01-14 16:00 | RAD_ITS ---
STUDY: X-RAY CHEST REASON FOR EXAM: Female, 63 years old. UNRESPONSIVE TECHNIQUE: Single AP portable view of the chest. COMPARISON: None. FINDINGS: Normal lung volumes. Patchy airspace density in both lung bases worse on the left suggestive of atelectasis or infiltrate. Consider further evaluation with CT of the chest. No effusions. Normal size heart. Normal mediastinum and mike. Normal visualized pulmonary arteries. There is atherosclerotic calcification of the aortic arch with tortuosity. Normal visualized thoracic spine. Normal visualized ribs, clavicles, and shoulders. There is no demonstrated abnormality of the visualized soft tissue structures of the upper abdomen. RAD/Chest 1 View (Portable) IMPRESSION: Patchy airspace density in both lung bases worse on the left suggestive of atelectasis or infiltrate. Consider further evaluation with CT of the chest. Electronically Signed: Vish Rodriguez MD at 17:15 EDT ,
--- NOTE | 2024-01-14 16:58 | EKG12_ITS ---
Test Reason : OD Blood Pressure : / mmHG Vent. Rate : 093 BPM Atrial Rate : 093 BPM P-R Int : 202 ms QRS Dur : 082 ms QT Int : 396 ms P-R-T Axes : 038 -10 021 degrees QTc Int : 492 ms Normal sinus rhythm Minimal voltage criteria for LVH, may be normal variant ( R in aVL ) Prolonged QT Abnormal ECG Confirmed by GREG HICKEY MD ([id number]), news editor ALEX WILEY ([id number]) on 01/16/2024 6:20:11 AM Referred By: LOPEZ Confirmed By:GREG HICKEY MD
--- NOTE | 2024-01-14 17:28 | EX.ED.DYSGE1 ---
HPI History of Present Illness Chief Complaint: Overdose Narrative Narrative: Delayed note due to unexpected system downtime. Brought in by EMS for concerns for overdose. Patient found by family member slumped over there was a pill bottle reporting methamphetamines. She has a history of Suboxone use. Blood glucose was 212. No other information at this time. [facility] Medical History (Updated 01/14/24 @ 17:[address] Sixto Holloway DO) Angina pectoris Anxiety CAD (coronary artery disease) Chronic bronchitis Chronic pain Depression Diverticulitis Dyspnea Emphysema lung Hepatitis C HLD (hyperlipidemia) Hyperhidrosis Interstitial lung disease Multiple thyroid nodules Neuropathic pain Palpitations Rheumatoid arthritis Stage 2 moderate COPD by GOLD classification Tobacco abuse Home Medications amitriptyline 50 mg tablet 100 mg PO QHS 01/26/14 [History Last Taken Unknown] atorvastatin 80 mg tablet (Lipitor) 80 mg PO DAILY 07/16/18 [History Last Taken Unknown] buprenorphine 4 mg-naloxone 1 mg sublingual film (Suboxone) 1 film sublingual .COMPLEX 07/16/18 [History Last Taken Unknown] cholecalciferol (vitamin D3) 1,250 mcg (50,000 unit) capsule 50,000 unit PO QWEEK 07/16/18 [History Last Taken Unknown] gabapentin 800 mg tablet (Neurontin) 800 mg PO .qid 07/16/18 [History Last Taken Unknown] lorazepam 0.5 mg tablet (Ativan) 0.5 mg PO TID 07/16/18 [History Last Taken Unknown] lurasidone 60 mg tablet (Latuda) 60 mg PO DAILY 09/13/20 [History Last Taken Unknown] baclofen 10 mg tablet 10 mg PO QHS PRN muscle spasm 08/24/22 [History Last Taken Unknown] ipratropium 0.5 mg-albuterol 3 mg (2.5 mg base)/3 mL nebulization soln 3 ml inhalation Q4H PRN PRN SOB &/OR WHEEZING #180 mL 08/24/22 [Rx Last Taken Unknown] Nebulizer Compressor #1 ea 01/09/23 [Rx Last Taken Unknown] PEP device #1 ea 05/01/23 [Rx Last Taken Unknown] PEP device #1 ea 05/01/23 [Rx Last Taken Unknown] budesonide 160 mcg-glycopyr 9 mcg-formot 4.8 mcg/actuation HFA inhaler (Breztri Aerosphere) 2 inh inhalation BID #10.7 grams 05/01/23 [Rx Last Taken Unknown] cefdinir 300 mg capsule 300 mg PO Q12H #14 caps 01/14/24 [Rx Last Taken Unknown] Allergy/AdvReac Type Severity Reaction Status Date / Time No Known Allergies Allergy Verified 05/28/23 02:19 Family History Mother CAD (coronary artery disease) stents Hypertension Heart disease Sister CAD (coronary artery disease) Diabetes Father Diabetes Heart disease Hypertension Surgical History H/O foot surgery H/O total hysterectomy History of bilateral carpal tunnel release History of lung surgery History of tonsillectomy Social History Smoking Status: Current every day smoker tobacco type: cigarettes Tobacco: How many years used: 54 alcohol intake: never substance use type: does not use ROS ROS ED Review of Systems ROS Unobtainable: due to mental status EXAM Physical Exam Const Vital Signs: 01/14/24 16:30 01/14/24 16:54 01/14/24 15:00 Temperature 97.0 F L Temperature Source Temporal Pulse Rate 86 92 Respiratory Rate 12 13 Blood Pressure 114/67 125/69 H Blood Pressure Mean 82 87 Pulse Ox 93 93 95 Oxygen Delivery Method Nasal Cannula Nasal Cannula Nasal Cannula Oxygen Flow Rate (L/min) 2 2 4 01/14/24 14:56 Temperature 97.5 F L Temperature Source Temporal Pulse Rate 100 Respiratory Rate 12 Blood Pressure 101/89 H Blood Pressure Mean 93 Pulse Ox 94 Oxygen Delivery Method Room Air Oxygen Flow Rate (L/min) Positive well nourished Constitutional Narrative: Nasal cannula, unresponsive there was response to strong sternal rub with movement all 4 extremities. HEENT Reports moist mucous membranes normocephalic and atraumatic Eyes Eyes Narrative: Pinpoint pupils noted. General Eye ED: Yes normal appearance of both eyes Neck no lymphadenopathy and supple General: Negative for tenderness Chest Wall Chest: Negative for tenderness Resp normal respiratory effort and normal air movement Effort and Inspection: symmetric chest movement; Negative for respiratory distress Cardio regular rate, regular rhythm and no murmurs Peripheral Pulses: pulses 2+ throughout GI normal to inspection, nondistended, normoactive bowel sounds and non-tender Palpation: Negative for guarding or rebound tenderness present Back/Spine no CVA tenderness and no thoracic nor lumbar tenderness Extremity normal to inspection General Extremety ED: Negative for edema or tenderness General Extremity: Negative for edema Neuro Neuro Narrative: Unresponsive moving all 4 extremities on sternal rub. Withdraws to pain 4 extremities. Sensorium / Orientation: awake and alert Skin no rashes or lesions noted and no wounds MDM MDM MDM Narrative Medical decision making narrative: Interventions / MDM: Differential diagnosis: Overdose, infectious findings. Diagnosis considered but do not suspect: N/A My EKG interpretation: Sinus rate of 93, no ST changes, isolated T wave version leads III. Nonspecific. Imaging independently reviewed and interpreted by myself: CT brain: No acute process. Chest x-ray 1 view: Left lower lobe atelectasis versus infiltrate. External documents reviewed: N/A Test considered but not ordered:N/A ED course: Patient unresponsive pinpoint pupils. Unknown information due to system downtime. Workup initiated for altered mental status. Narcan ordered. Patient was monitored ED suddenly woke up, she did report having Adderall that she took. Daughter later did come, states possibility of her getting other medications. She was denying any opiate use. WBC returned at 16. Hemoglobin 14.9. Creatinine 0.9. Sodium 141 potassium 3.5. Glucose 93. Normal liver enzymes. Alcohol less than 3. 1745: Reevaluation patient daughter in the room also again. She has chronic cough she is on chronic 2 L her oxygen with COPD. Discussed findings possible pneumonia. She was ambulated pulse ox 94 she has unsteady gait at baseline daughter confirms this is her normal self. She has declined using a walker previously. In addition while walking, states had left leg pain last 2 days. Evaluated anterior carter region. No calf pain. No swelling. No erythema. Discussed monitoring symptoms. Low suspicion for any fracture or DVT at this time. She started on cefdinir along with Tylenol and first dose in the ED. Discussed return precautions. Daughter will be at home with the patient monitoring. Of note, toxicology screen did not get resulted due to downtime, discussed with daughter can make sure lab draws and checks, she did admit to Adderall, discussed there is possible opiate findings however she is also on Suboxone. Daughter states would not change plan of care at this time therefore she did not want to wait for this. She be discharged with outpatient follow-up. All questions were answered. Re-evaluation: stable Disposition discussed with patient/family/significant other: Patient and daughter Case discussed with consulting clinician: N/A This note was generated with [employer] dictation software. It may contain incorrect words, spelling, and punctuation that were not noted in checking the note before signing. Radiography Diagnostic Testing: Clinical Impression(s) from Imaging Studies Brain CT 01/14/24 15:50 IMPRESSION: Normal unenhanced CT scan of the brain. Electronically Signed: Vish Rodriguez MD at 16:24 EDT , Chest X-Ray 01/14/24 16:00 IMPRESSION: Patchy airspace density in both lung bases worse on the left suggestive of atelectasis or infiltrate. Consider further evaluation with CT of the chest. Electronically Signed: Vish Rodriguez MD at 17:15 EDT , Discharge Plan Triage Chief Complaint: Overdose ED Provider: Sixto Holloway Dx/Rx/DC Orders Clinical Impression: Overdose, COPD (chronic obstructive pulmonary disease), Pneumonia Instructions: ED Overdose, Opiate, ED Pneumonia (Adult) Prescriptions: New cefdinir 300 mg capsule 300 mg PO Q12H Qty: 14 0RF No Action gabapentin [Neurontin] 800 mg tablet 800 mg PO .qid buprenorphine-naloxone [Suboxone] 4-1 mg film 1 film SUBLINGUAL .COMPLEX Patient Comments: 1 film SUBLINGUAL in the morning, half film in PM Rx Instructions: 1 film SUBLINGUAL in the morning, half film in PM atorvastatin [Lipitor] 80 mg tablet 80 mg PO DAILY lorazepam [Ativan] 0.5 mg tablet 0.5 mg PO TID cholecalciferol (vitamin D3) 50,000 unit capsule 50,000 unit PO QWEEK Latuda 60 mg tablet 60 mg PO DAILY Rx Instructions: must administer with food (at least 350 calories) baclofen 10 mg tablet 10 mg PO QHS PRN (Reason: muscle spasm) ipratropium-albuterol 0.5 mg-3 mg(2.5 mg base)/3 mL solution for nebulization 3 ml inhalation Q4H PRN PRN (Reason: SOB &/OR WHEEZING) Qty: 180 6RF (DME) PEP device See Rx Instructions .ROUTE .MEDSUPPLY Qty: 1 0RF Rx Instructions: with training Breztri Aerosphere 160-9-4.8 mcg/actuation HFA aerosol inhaler 2 inh inhalation BID Qty: 10.7 6RF (DME) PEP device See Rx Instructions .ROUTE .MEDSUPPLY Qty: 1 0RF Rx Instructions: with training amitriptyline 50 MG tablet 100 mg PO QHS (DME) Nebulizer Compressor See Rx Instructions .ROUTE .MEDSUPPLY Qty: 1 0RF Rx Instructions: As directed Primary Care Provider: Sammy Zabala NP Referrals: Sammy Zabala [employer]ACH[employer]ENDER, [employer]ENDER-C [Primary Care Provider] - 3-5 Days Activity Restrictions/Additional Instructions: For overdose now back to normal. Suspect opiate related. Questionable pneumonia on x-ray. You are stable on her 2 L oxygen. Take antibiotic as prescribed. Head CT negative. Follow-up with your doctor. Symptoms clinically worsens or worsening breathing issues, return to the ED for reevaluation. Disposition Disposition: Home, Self Care
[2024-01-14] MEDS: Acetaminophen 500 MG Tablet 1000 MG PO (17:59)
[2024-01-14] MEDS: Cefdinir 300 MG Capsule PO (18:00)
--- NOTE | 2024-01-14 18:15 | ED.RN ---
PATIENT AND DAUGHTER GIVEN DISCHARGE INSTRUCTIONS AND ALL QUESTIONS ANSWERED. AFTER PIV PULLED, DAUGHTER STEPPED OUT OF ROOM AN EXPRESSED CONCERNS FOR THE PAIN PT. IS HAVING IN LEFT LEG. DR. GALLAGHER NOTIFIED OF PAIN DR. MARROQUIN HAS LEFT. DR. GALLAGHER STATES SHE WILL EXAMINE PATIENT SOON SHE CAN. PATIENT AND DAUGHTER NOTIFIED.
--- NOTE | 2024-01-14 18:30 | RAD_ITS ---
STUDY: X-RAY - PELVIS AND LEFT HIP REASON FOR EXAM: Female, 63 years old. PAIN TECHNIQUE: 3 views of the pelvis and hip. COMPARISON: None. FINDINGS: There is a non-specific bowel gas pattern. Normal visualized soft tissue structures. Normal bilateral iliac wings, sacroiliac joints and visualized sacrum. Normal bilateral superior and inferior pubic rami. Normal pubic symphysis. Normal bilateral ischial tuberosities. Normal visualized femoral head. Normal acetabulum. Normal hip joint. RAD/HIP, UNI W/ Pelvis 2-3 Views IMPRESSION: Normal x-ray examination of the pelvis and hip. Electronically Signed: Vish Rodriguez MD at 19:28 EDT ,
[2024-01-14 22:27] LABS: Bacteria 0 SEEN /hpf (None Seen); Squamous Epithelial Cells - UA 0 SEEN /hpf (5-10)
[2024-01-14 22:27] LABS: AST(SGOT) 13 U/L (15-37); Albumin, Serum 4.1 g/dL (3.2-5.0); BUN 14 mg/dL (7-18); BUN/Creat Ratio 14.7 RATIO (10-20); Calcium,Total 9.3 mg/dL (8.5-10.1); Creatinine, Serum 0.95 mg/dL (0.55-1.02); EST Glomerular Filtration Rate 63 mL/min (>60); Est Glom Filt Rate - Afr Amer 76 mL/min (>60); Globulin 4.1 g/dL (2.2-4.2); Glucose 93 mg/dL (74-106); Protein, Total 8.2 g/dL (6.4-8.2)
[2024-01-14 22:28] LABS: Alanine Aminotransfer ALT/SGPT 17 U/L (13-56); Alkaline Phosphatase 128 U/L (45-117); Anion Gap 7 (5-15); Chloride 105 mmol/L (98-107); Potassium 3.5 mmol/L (3.5-5.1); Sodium Level 141 mmol/L (136-145)
[2024-01-14 22:29] LABS: Absolute Lymphocyte Count 1.97 X10^3/uL (0.83-4.51); Absolute Neutrophil Count 12.8 X10^3/uL (2.0-7.7); Basophil% 0.4 % (0-1); Eosinophils% 0.2 % (0-5); Hemoglobin 14.9 g/dL (12.0-15.0); Lymphocyte % 12.2 % (19-41); Mean Corp Hgb Conc 33.1 g/dL (32-36); Mean Corpuscular Hgb 30.7 pg (27.0-32.0); Mean Corpuscular Volume 92.8 fL (81-99); Mean Platelet Vol. 10.4 fl (6.2-12.0); Monocyte% 6.9 % (0-10); Neutrophil % 79.7 % (47-70); Platelet Count 262 K/mm3 (150-450); RBC Distribution Width SD 43.7 fl (35.1-43.9); Red Blood Count 4.85 M/mm3 (4.2-5.4); White Blood Count 16.1 K/mm3 (4.4-11.0)
[2024-01-14 22:31] LABS: Alcohol, Blood (Medical)-Serum < 3.0 mg/dL
[2024-01-14 22:32] LABS: Amphetamine Urine VISTA POSITIVE (<1000 ng/mL); Barbiturate Urine VISTA NEGATIVE (< 200 ng/mL); Benzodiazepine Urine VISTA NEGATIVE (< 200 ng/mL); Cocaine Urine VISTA NEGATIVE (< 300 ng/mL); Color, Urine Yellow (Yellow); Ecstacy Urine VISTA POSITIVE (< 500 ng/mL); Methadone Urine VISTA NEGATIVE (< 300 ng/mL); PCP Urine VISTA NEGATIVE (< 25 ng/mL); THC Urine VISTA NEGATIVE (< 50 ng/mL); Urine Clarity Clear (Clear); Vista UDS pH Range 6
[2024-01-14 22:33] LABS: Glucose, Dipstick Normal (Normal); Ketone-Dipstick 5 mg/dl (Negative); Leukocyte Esterase-Dipstick 25 /ul (Negative); Mucous, Urine RARE /hpf (<or=2+); Nitrite-Dipstick Negative (Negative); Occult Blood-Urine Negative /ul (Negative); Protein-Dipstick 30 mg/dl (Negative); Red Blood Cells-Urine 0-5 SEEN /hpf (0-5); Urine Bilirubin Dipstick Negative (Negative); Urine Urobilinogen Normal (Normal); White Blood Cells 0-5 SEEN /hpf (0-5)
== END 2024-01-14 20:19 | disposition home or self-care (01) ==
PROVIDERS: Emergency Provider Emergency Medicine; PCP Nurse Practitioner Family; Visit Provider Emergency Medicine
DX: T50.901A Poisoning by unspecified drugs, medicaments and biological substances, accidental (unintentional), initial encounter (principal); J44.0 Chronic obstructive pulmonary disease with (acute) lower respiratory infection; J18.9 Pneumonia, unspecified organism; R41.82 Altered mental status, unspecified; F17.210 Nicotine dependence, cigarettes, uncomplicated; I25.10 Atherosclerotic heart disease of native coronary artery without angina pectoris; B19.20 Unspecified viral hepatitis C without hepatic coma; E78.5 Hyperlipidemia, unspecified; Z79.899 Other long term (current) drug therapy; Z90.710 Acquired absence of both cervix and uterus; M79.605 Pain in left leg; W19.XXXA Unspecified fall, initial encounter
CPT/HCPCS: 99282; 36415; 70450; 71045; 73502; 80053; 80307; 80320; 81001; 85025; 93005; 96374; 99285; J7030; A4216; G0480

== ENCOUNTER → 2024-03-03 | Outpatient (CLI) | payer MEDICAID, SELFPAY ==
--- NOTE | 2024-03-03 14:30 | ASPS_PTH ---
PATIENT: IAN NGO LOC: [facility] U#:[id number] AGE/SX: 63/F ROOM: RE03/03/[address]: Dr. Yfn Guallpa MD : 1960 BED: DIS: 03/03/2024 SPEC #: [id number] RECD: 03/03/24 15:57 STATUS: HENRIETTA REJose #: [id number] FABIOLA: 03/03/24 14:[address]: Yfn Guallpa DEPT: CYTOLOGY RECD BY: Cassandra Bocanegra ENTERED: 03/04/24 09:44 SP TYPE: ASPIRATION OTHR DR: Dr. Julio Cesar Jacobs, DO Tissues: A - Thyroid gland, NOS B - Thyroid gland, NOS Procedures: Special Stain Group II Cytology Other HEADER OPERATION: Bilateral thyroid Fine needle aspiration PRE-OP DIAGNOSIS: Thyroid nodules TISSUE SUBMITTED: A- Right thyroid slides, B- Left thyroid slides DIAGNOSIS CYTOLOGY A. Fine needle aspiration, right thyroid nodule (smears): Consistent with benign follicular nodule (Lufkin Category II). See comment. B. Fine needle aspiration left thyroid nodule (smears): Atypia of undetermined significance (Lufkin Category III). See comment. KATEY/ 03/04/24 COMMENT A The Lufkin System for thyroid diagnostic categorization was used in the evaluation of this case. B. Atypical spindle cells are present in background of benign follicular cells of thyroid origin. These atypical spindle cells may be extraneous to the thyroid gland. However, intrathyroidal spindle cell lesion can not be excluded. Clinical correlation is necessary. Per recommendations and a clinician-approved plan (a call was made to the referring doctor about the recommendation), genomic testing (Afirma) has been submitted. Results will be reported as an addendum and faxed to clinician. CYTOLOGY STUDY Slides are reviewed. CYTOLOGY GROSS A. Received are 8 smears labeled with the patient's name and designated per the requisition as Right thyroid slides. Submitted for staining. B. Received are 8 smears labeled with the patient's name and designated per the requisition as Left thyroid slides. Submitted for staining. Mr 03/04/2024 TC:? CPT: 83605 x2 ADDENDUM ADDENDUM ADDENDUM ADDENDUM ADDENDUM ADDENDUM ADDENDUM ADDENDUM ADDENDUM ADDENDUM ADDENDUM ADDENDUM 04/03/2024 08:19 ADDENDUM 04/03/2024 08:19 ADDENDUM 04/03/2024 08:19 ADDENDUM 04/03/2024 08:19 ADDENDUM 04/03/2024 08:19 A. AFIRMA RESULTS REPORT RESULTS INTERPRETATION: Test canceled (TNP) due to absence of concurrent or prior indeterminate cytopathology findings. B. AFIRMA RESULTS REPORT RESULTS INTERPRETATION The result of this 2.6 cm Lufkin III nodule B is Afirma GSC benign, which suggests a low risk of cancer of approximately 4%. Please see complete report in e-chart or EMR
--- NOTE | 2024-03-03 14:30 | ASPS_PTH ---
PATIENT: IAN NGO LOC: [facility] U#:[id number] AGE/SX: 63/F ROOM: RE03/03/[address]: Dr. Yfn Guallpa MD : 1960 BED: DIS: 03/03/2024 SPEC #: [id number] RECD: 03/03/24 15:57 STATUS: HENRIETTA REJose #: [id number] FABIOLA: 03/03/24 14:[address]: Yfn Guallpa DEPT: CYTOLOGY RECD BY: Cassandra Bocanegra ENTERED: 03/04/24 09:44 SP TYPE: ASPIRATION OTHR DR: Dr. Julio Cesar Jacobs, DO Tissues: A - Thyroid gland, NOS B - Thyroid gland, NOS Procedures: Special Stain Group II Cytology Other HEADER OPERATION: Bilateral thyroid Fine needle aspiration PRE-OP DIAGNOSIS: Thyroid nodules TISSUE SUBMITTED: A- Right thyroid slides, B- Left thyroid slides DIAGNOSIS CYTOLOGY A. Fine needle aspiration, right thyroid nodule (smears): Consistent with benign follicular nodule (Morse Category II). See comment. B. Fine needle aspiration left thyroid nodule (smears): Atypia of undertone significance (Morse Category III). See comment. KATEY/ 03/04/24 COMMENT A The Morse System for thyroid diagnostic categorization was used in the evaluation of this case. B. Atypical spindle cells are present in background of benign follicular cells of thyroid origin. These atypical spindle cells may be extraneous to the thyroid gland. However, intrathyroidal spindle cell lesion can not be excluded. Clinical correlation is necessary. Per recommendations and a clinician-approved plan (a call was made to the referring doctor about the recommendation), genomic testing (Afirma) has been submitted. Results will be reported as an addendum and faxed to clinician. CYTOLOGY STUDY Slides are reviewed. CYTOLOGY GROSS A. Received are 8 smears labeled with the patient's name and designated per the requisition as Right thyroid slides. Submitted for staining. B. Received are 8 smears labeled with the patient's name and designated per the requisition as Left thyroid slides. Submitted for staining. Mr 03/04/2024 TC:? CPT: 85207 x2
== END | disposition home or self-care (01) ==
LOC: LABSPEC 16:18
PROVIDERS: Referring Provider Surgery; Visit Provider Surgery
DX: E04.2 Nontoxic multinodular goiter (principal)
CPT/HCPCS: 88161; 88313

== ENCOUNTER 2025-10-28 17:47 | Emergency (ER) | payer MEDICAID, SELFPAY ==
[2025-10-28 17:49] VITALS: BP 138/96; PULSE 99; RESP 18; TEMP 36.5; O2SAT 93; BMI 30.5
--- NOTE | 2025-10-28 18:07 | EDS_ITS ---
HPI History of Present Illness Chief Complaint: Eye Problem Informant: patient Onset/Context/Timing Location: Left Eye Timing: Continuous Current Severity: Moderate Maximum Severity: Moderate Associated Symptoms Associated Symptoms - Eyes: Pain and Redness; Negative for Drainage, Foreign body sensation or Itching History of injury: No Visual correction: Glasses Narrative Narrative: 64-year-old female history of glaucoma, hepatitis C, CAD, hypertension, COPD. 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 Yesterday she had an Avastin injection of her left eye around 12:30 PM. She is describes pain. But no visual change. She normally wears glasses but said they are broken. Denies any visual change. Denies any discharge or drainage. Said her eyes were red. Prior similar symptoms: No Recent Illness/Hospitalization: No PFSH PFSH Medical History Multiple thyroid nodules Hyperhidrosis Chronic pain Neuropathic pain Interstitial lung disease Emphysema lung Chronic bronchitis Diverticulitis Rheumatoid arthritis Depression Anxiety Hepatitis C HLD (hyperlipidemia) Angina pectoris Palpitations CAD (coronary artery disease) Dyspnea Tobacco abuse Stage 2 moderate COPD by GOLD classification Home Medications ?Medication ?Instructions ?Recorded ?Last Taken ?Type amitriptyline 50 mg tablet 100 mg PO QHS 01/26/14 Unkn own History atorvastatin 80 mg tablet (Lipitor) 80 mg PO DAILY 10/21 Unknown History buprenorphine 4 mg-naloxone 1 mg 1 film sublingual .CO MPLEX 07/16/18 Unknown History sublingual film (Suboxone) cholecalciferol (vitamin D3) 1,250 50,000 unit PO QWEE K 07/16/18 Unknown History mcg (50,000 unit) capsule lorazepam 0.5 mg tablet (Ativan) 0.5 mg PO TID 8 Unknown History lurasidone 60 mg tablet (Latuda) 60 mg PO DAILY Unknown History baclofen 10 mg tablet 10 mg PO QHS PRN muscle spas m 08/24/22 Unknown History ipratropium 0.5 mg-albuterol 3 mg 3 ml inhalation Q4H PRN PRN SOB 08/24/22 Unknown Rx (2.5 mg base)/3 mL nebulization &/OR WHEEZING #180 mL soln Nebulizer Compressor #1 ea 01/09/23 Unknown Rx PEP device #1 ea 05/01/23 Unknown Rx PEP device #1 ea 05/01/23 Unknown Rx budesonide 160 mcg-glycopyr 9 2 inh inhalation BID #10 .7 grams 05/01/23 Unknown Rx mcg-formot 4.8 mcg/actuation HFA inhaler (Breztri Aerosphere) docusate calcium 240 mg capsule 240 mg PO BID 03/03/24 Unknown History duloxetine 30 mg capsule,delayed 30 mg PO QDAY 4 Unknown History release hydroxyzine HCl 25 mg tablet 25 mg PO BID 03/03/24 Unk nown History acetazolamide 500 mg 500 mg PO Q12H 5 days #10 ca ps 10/28/25 Unknown Rx capsule,extended release hydrocodone 5 mg-acetaminophen 300 1 tab PO Q8H PRN pa in 3 days #7 10/28/25 Unknown Rx mg tablet tabs Allergy/AdvReac Type Severity Reaction Status Date / Time No Known Allergies Allergy Verified 10/28/25 17:51 Family History Mother CAD (coronary artery disease) stents Hypertension Heart disease Sister CAD (coronary artery disease) Diabetes Father Diabetes Heart disease Hypertension Surgical History S/P laparoscopic cholecystectomy History of lung surgery H/O foot surgery History of tonsillectomy History of bilateral carpal tunnel release H/O total hysterectomy Social History Smoking Status: Current every day smoker tobacco type: cigarettes Tobacco: How many years used: 54 alcohol intake: never substance use type: does not use ROS ROS ED ROS Narrative Denies recent illness. Constitutional Constitutional ED: Denies chills or fever(s) Eyes Eyes: Denies blurry vision, change in vision or diplopia ENT ENT ED: Denies ear pain Cardiovascular Cardiovascular: Denies chest pain Respiratory/Chest Respiratory/Chest: Denies cough Gastrointestinal Gastrointestinal: Denies abdominal pain Genitourinary Genitourinary ED: Denies dysuria Musculoskeletal Musculoskeletal: Denies arthralgias Integumentary Denies abscess Neurologic Neurologic: Denies headache(s) Psychiatric Psychiatric: Denies anxiety Endocrine Endocrinology: Denies polydipsia Hematologic/Lymphatic Hematologic/Lymphatic: Denies easy bleeding, easy bruising or lymphadenopathy Allergic/Immunologic Allergic/Immunologic ED: Denies mouth swelling, tongue swelling or urticaria EXAM Physical Exam Narrative Exam Narrative: 64-year-old female vital signs are stable afebrile does not look septic toxic. No acute distress. H EENT exam pupils round react light. Extra motions are intact. Left eye is injected. Redness. No discharge or drainage. No significant watering. The upper and lower lids are not significantly swollen. There is no preauricular lymphadenopathy. There is no proptosis. There is no orbital or periorbital cellulitis. Face is unremarkable otherwise. Neck nontender no lymphadenopathy. Lungs clear to auscultation bilaterally. Heart regular rhythm rate about 100 5/6 systolic ejection murmur. Chest wall nontender. Abdomen soft nontender. Moving all 4 extremities. Nontender no edema. Neurologically she is awake alert. Answering questions following commands. Const Vital Signs: 10/28/25 17:49 Temperature 97.7 F L Temperature Source Temporal Pulse Rate 99 Respiratory Rate 18 Blood Pressure 138/96 H Blood Pressure Mean 110 Pulse Ox 93 Oxygen Delivery Method Room Air MDM MDM MDM Narrative Medical decision making narrative: 64-year-old female complaining of eye pain without vision change after an Vasta injection for glaucoma yesterday by an dimension warehouse supervisor in [place] yesterday. Visual acuity be obtained but she did not have her glasses with her she says her broke. Will get an eye pressure. And I will do a slit-lamp exam. Slit-lamp exam of the left eye shows redness. With fluorescein stain and tetracaine drops. There is no corneal abrasion. No ulcer. No foreign body. I was able to do William-Pen pressures of the eye anywhere between 37 and 40. The readings I obtained were 37, 39 and 40. Patient's visual acuity was 2050 in the right eye and she could not see out of the left eye even the largest number. Now this is without her glasses. I spoke to Dr. Trenton Rudd of [facility]. He is actually scheduled see the patient tomorrow knows her well. I also spoke to Dr. Collin bonner for the physician that gave her the eye injection the other day. Patient to be started on Diamox 500 mg twice daily given a dose here and a prescription for home. Both are comfortable with her being discharged and close follow-up tomorrow. Patient is comfortable with the plan also. Patient has a history of very poor visual acuity in her right eye. She can see fingers which is what she could see at the [place] ophthalmology office earlier this week. History & Record Review Discussion w/independent historian: Patient Additional record(s) reviewed:: Prior outpatient record and Prior ED visit Discharge Plan Triage Chief Complaint: Eye Problem ED Provider: Trenton Sarmiento Dx/Rx/DC Orders Clinical Impression: Acute pain in right eye, History of glaucoma Prescriptions: New acetazolamide 500 mg capsule, extended release 500 mg PO Q12H 5 Days Qty: 10 0RF hydrocodone-acetaminophen 5-300 mg tablet 1 tab PO Q8H PRN (Reason: pain) 3 Days Qty: 7 0RF No Action buprenorphine-naloxone [Suboxone] 4-1 mg film 1 film SUBLINGUAL .COMPLEX Patient Comments: 1 film SUBLINGUAL in the morning, half film in PM Rx Instructions: 1 film SUBLINGUAL in the morning, half film in PM atorvastatin [Lipitor] 80 mg tablet 80 mg PO DAILY lorazepam [Ativan] 0.5 mg tablet 0.5 mg PO TID cholecalciferol (vitamin D3) 50,000 unit capsule 50,000 unit PO QWEEK Latuda 60 mg tablet 60 mg PO DAILY Rx Instructions: must administer with food (at least 350 calories) baclofen 10 mg tablet 10 mg PO QHS PRN (Reason: muscle spasm) ipratropium-albuterol 0.5 mg-3 mg(2.5 mg base)/3 mL solution for nebulization 3 ml inhalation Q4H PRN PRN (Reason: SOB &/OR WHEEZING) Qty: 180 6RF (DME) PEP device See Rx Instructions .ROUTE .MEDSUPPLY Qty: 1 0RF Rx Instructions: with training Breztri Aerosphere 160-9-4.8 mcg/actuation HFA aerosol inhaler 2 inh inhalation BID Qty: 10.7 6RF (DME) PEP device See Rx Instructions .ROUTE .MEDSUPPLY Qty: 1 0RF Rx Instructions: with training docusate calcium 240 mg capsule 240 mg PO BID hydroxyzine HCl 25 mg tablet 25 mg PO BID duloxetine 30 mg capsule,delayed release(DR/EC) 30 mg PO QDAY amitriptyline 50 MG tablet 100 mg PO QHS (DME) Nebulizer Compressor See Rx Instructions .ROUTE .MEDSUPPLY Qty: 1 0RF Rx Instructions: As directed Primary Care Provider: Julio Cesar Jacobs Referrals: Mason Rudd MD [Med Staff - Active Staff, Opthamology] - Keep [facility] appointment Julio Cesar Jacobs DO [Primary Care Provider, Medical] Activity Restrictions/Additional Instructions: I spoke with both Dr. Rudd who you are going to see tomorrow at [facility]. Also Dr. Polanco from the [place] [facility]. You will be started on Diamox 1 pill twice a day to help decrease the pressure in your eye. Make sure you see Dr. Rudd tomorrow. Vicodin for pain. Print Language: Upper Sorbian Disposition Disposition: Home, Self Care
[2025-10-28] MEDS: Tetracaine 0.5% Ophthalmic Bottle 5 DRP LEFT EYE (18:12)
--- OUTSIDE RECORDS SUMMARY | 2025-10-28 18:25 | XMS RPT_ITS | CCD ---
Author Organization [facility] Care Team Providers Care Director Of Catering Sales Name Role Phone NO, DOCTOR ON Unavailable Unavailable NO, DOCTOR ON Unavailable Unavailable KIA BURNETT MD Unavailable Unavailable KIA BURNETT MD Unavailable Unavailable KIA BURNETT MD Unavailable Unavailable ALLAN, JEREMY E Unavailable Unavailable ALLAN JEREMY E Unavailable Unavailable ALLAN, JEREMY E Unavailable Unavailable ANDRY BEATTY MD Unavailable Unavailable ANDRY BEATTY MD Unavailable Unavailable PROVIDER, UNKNOWN Unavailable Unavailable PROVIDER, UNKNOWN Unavailable Unavailable NADIR, [facility] Unavailable Unavaila ble NADIR, [facility] Unavailable Unavaila ble NADIR, [facility] Unavailable Unavaila ble NO, DOCTOR ON Unavailable Unavailable ALLAN, JEREMY E Unavailable Unavailable ALLAN, JEREMY E Unavailable Unavailable ALLAN, JEREMY E Unavailable Unavailable ANDRY BEATTY MD Unavailable Unavailable ANDRY BEATTY MD Unavailable Unavailable PROVIDER, UNKNOWN Unavailable Unavailable PROVIDER, UNKNOWN Unavailable Unavailable Maki Prabhakar LPN Unavailable Unavailab Nery Cosby Primary Care Provider [phone] Andry Beatty Chi Primary Care Provider [phone] COTY CONSTANTINO Primary Care Physician Dr. Andry Beatty Chi Primary Care Provider [phone] Dr. Andry Beatty Chi Referring Provider [phone] Viviana HOUSE CALLS NURSE PRACTITIONER, HOUSE CALLS NURSE PRACTITIONER-C Sangita Attending Provider JULIO CESAR JACOBS DO Primary Care Physician Vj HOUSE CALLS NURSE PRACTITIONER, HOUSE CALLS NURSE PRACTITIONER-C Sammy Referring Provider [phone] Dr. Kia Guallpa Attending Provider Dr. Julio Cesar Jacobs Primary Care Provider [phone] Rogerio, Andry Chi Primary Care Unavailable Rogerio, Andry Chi Referring Unavailable Michelle HOUSE CALLS NURSE PRACTITIONER, Sangita Attending Unavailable Helmauriceer HOUSE CALLS NURSE PRACTITIONER, Sammy Primary Care Unavailable Hellinger HOUSE CALLS NURSE PRACTITIONER, Sammy Referring Unavailable Michelle HOUSE CALLS NURSE PRACTITIONER, Sangita Attending Unavailable Vj HOUSE CALLS NURSE PRACTITIONER, Sammy Referring Unavailable Kia Guallpa Attending Unavailable Julio Cesar Jacobs Primary Care Unavailable Michelle HOUSE CALLS NURSE PRACTITIONER, Sangita Attending Unavailable Rogerio, Andry Chi Primary Care Unavailable Rogerio, Andry Chi Referring Unavailable Trenton Sarmiento Attending Unavailable Rogerio, Andry Chi Primary Care Unavailable Hellinger HOUSE CALLS NURSE PRACTITIONER, Sammy Primary Care Unavailable LeSixto Attending Unavailable Hellinger HOUSE CALLS NURSE PRACTITIONER, Sammy Primary Care Unavailable Provider, Ed Physician Attending Unavailab minesh Zabala HOUSE CALLS NURSE PRACTITIONER, Sammy Primary Care Unavailable Provider, Ed Physician Attending Unavailab Kia Foley Attending Unavailable Kia Guallpa Referring Unavailable Julio Cesar Jacobs Primary Care Unavailable Viviana HOUSE CALLS NURSE PRACTITIONER, Sangita Attending Unavailable Viviana HOUSE CALLS NURSE PRACTITIONER, Sangita Referring Unavailable Rogerio, Andry Chi Primary Care Unavailable JACOBS DO, JULIO CESAR E Attending Unavailable JACOBS DO, JULIO CESAR E Primary Care Unavailable SUSAN SAMUEL Attending Unavailable JACOBS DO, JULIO CESAR E Primary Care Unavailable MAYI VILLALOBOS MD Attending Unavail able JACOBS DO, JULIO CESAR E Primary Care Unavailable SUSAN SAMUEL Attending Unavailable JACOBS DO, JULIO CESAR E Primary Care Unavailable JACOBS DO, JULIO CESAR E Attending Unavailable JACOBS DO, JULIO CESAR E Primary Care Unavailable JACOBS DO, JULIO CESAR E Admitting Unavailable JACOBS DO, JULIO CESAR E Attending Unavailable JACOBS DO, JULIO CESAR E Primary Care Unavailable SEFFENS PLUMBER'S ASSISTANT-LOOM STOP CHECKER, COTY Attending Unavai lable JACOBS DO, JULIO CESAR E Primary Care Unavailable SEFFENS PLUMBER'S ASSISTANT-LOOM STOP CHECKER, COTY Attending Unavai lable JACOBS DO, JULIO CESAR E Primary Care Unavailable JACOBS DO, JULIO CESAR E Attending Unavailable JACOBS DO, JULIO CESAR E Primary Care Unavailable JACOBS DO, JULIO CESAR E Attending Unavailable JACOBS DO, JULIO CESAR E Primary Care Unavailable JACOBS DO, JULIO CESAR E Attending Unavailable JACOBS DO, JULIO CESAR E Primary Care Unavailable Yvonne Solis Unavailable Unavailable MATEUS CLARK, MARSHALL Attending Unavailable JACOBS DO, JULIO CESAR E Primary Care Unavailable WILLIAM CLARK, TAMRA Lanza Admitting Unavailable LILLY CASTRO MD, V Consulting Unavailable JACOBS DO, JULIO CESAR E Primary Care Unavailable JACOBS DO, JULIO CESAR E Attending Unavailable JACOBS DO, JULIO CESAR E Primary Care Unavailable JACOBS DO, JULIO CESAR E Attending Unavailable JACOBS DO, JULIO CESAR E Primary Care Unavailable JACOBS DO, JULIO CESAR E Attending Unavailable JACOBS DO, JULIO CESAR E Primary Care Unavailable JACOBS DO, JULIO CESAR E Attending Unavailable JACOBS DO, JULIO CESAR E Primary Care Unavailable JACOBS DO, JULIO CESAR E Attending Unavailable JACOBS DO, JULIO CESAR E Primary Care Unavailable JACOBS DO, JULIO CESAR E Attending Unavailable JACOBS DO, JULIO CESAR E Primary Care Unavailable ANJALI DO, TYLER Attending Unavailable TAMRA THOMAS MD Consulting Unavailable JACOBS DO, JULIO CESAR E Primary Care Unavailable JACOBS DO, JULIO CESAR E Attending Unavailable Allergies Allergy Classification Reported Allergen(s) Allergy Type Date of Onset Reaction(s) Facility NEGATED: Highlighted row has been ruled out! (1 source) Observed no known allergies at [facility] No Known Allergies 6 propensity to adverse reactions [facility] Work Phone: Medications Current Medications Medication Drug Class(es) Dates Sig (Normalized) Sig (Original) acetaminophen 325 mg / HYDROcodone bitartrate 5 mg oral tablet (3 sources) Opioid Agonist Start: 06-01-2024 End: 06-04-2024 Warwick 325- 5 mg oral tablet Dose = 1 tab(s), Oral, q6h, PRN for pain, May take 1-2 tablets / dose, X 3 day(s), # 12 tab(s), 0 Refill(s), Sciatica, 72.7 Start Date: 06/01/24 Stop Date: 06/04/24 Status: Ordered Start: 04-24-2015 take 1 tablet by shawanda th every six hours Warwick 325- 5 mg oral tablet Dose = 1 tab(s), Oral, q6h, # 20 tab(s), 0 Refill(s) Start Date: 04/24/15 Status: Ordered Advair Diskus 100 mcg-50 mcg/inh inhalation powder (2 sources) Start: 02-02-2025 take 1 dose by inhalation twice daily Advair Diskus 100 mcg-50 mcg/inh inhalation powder Dose = 1 puff(s), Inhalation, BID, # 60 EA, 1 Refill(s), Pharmacy: [facility], 170.2, cm, 01/22/25 14:12:00 EDT, Height, kg, 01/22/25 14:12:00 EDT, Dosing Weight Start Date: 02/02/25 Status: Ordered Quantity: 60.0 Unit: EA Repeat number: 2 Albuterol (20 sources) beta2-Adrenergi c Agonist Start: 03-13-2024 take 2 puff(s) by inhalation every four hours as needed for wheezing Ventolin HFA MDI (90 mcg/inh) inhalation aerosol 2 puff(s), Inhalation, q4h, PRN as needed for wheezing, # 3 EA, 1 Refill(s), [facility][id number], 170.8, cm, 03/13/24 11:04:00 EDT, Height, kg, 03/13/24 11:04:00 EDT, Dosing Weight Start Date: 03/13/24 Status: Ordered Quantity: 3.0 Unit: EA Repeat number: 2 Start: 03-13-2024 take 2 puff(s) by in halation every four hours as needed for wheezing Ventolin HFA MDI (90 mcg/inh) inhalation aerosol 2 puff(s), Inhalation, q4h, PRN as needed for wheezing, # 3 EA, 1 Refill(s), [facility]acy: [facility] #[id number], 170.8, cm, 03/13/24 11:04:00 EDT, Height, kg, 03/13/24 11:04:00 EDT, Dosing Weight Start Date: 03/13/24 Status: Ordered Start: 02-18-2024 take 2 puff(s) by in halation every four hours as needed for wheezing Ventolin HFA MDI (90 mcg/inh) inhalation aerosol 2 puff(s), Inhalation, q4h, PRN as needed for wheezing, # 3 EA, 1 Refill(s), Pharmacy: [facility] #[id number], 170.8, cm, 02/18/24 9:06:00 EDT, Height, kg, 02/18/24 9:06:00 EDT, Dosing Weight Start Date: 02/18/24 Status: Ordered Start: 04-22-2023 take 2 puff(s) by in halation every four hours as needed for wheezing Ventolin HFA MDI (90 mcg/inh) inhalation aerosol 2 puff(s), Inhalation, q4h, PRN as needed for wheezing Start Date: 04/22/23 Status: Ordered Start: 01-06-2021 End: 05-28-2023 take 1 puff(s) by inhalation every four hours Albuterol Sulfate (Ventolin Hfa) 90 mcg/actuation HFA aerosol inhaler Discontinued 2 PUFF INHALATION Q4H August 24, 2022 1:06pm May 28, 2023 2:22am Start: 07-29-2018 End: 01-06-2021 take 1 puff(s) by inhalation every four hours Albuterol Sulfate (Ventolin Hfa) 90 mcg/actuation HFA aerosol inhaler Discontinued 2 PUFF INHALATION Q4H July 29, 2018 12:00am January 06, 2021 2:41pm Start: 12-17-2014 take 2 puff(s) by in halation every four hours as needed for wheezing albuterol HFA (PROVENTIL HFA) 90 mcg/actuation inhaler Inhale 2 Puffs as instructed every 4 hours as needed. NEEDED FOR SHORTNESS OF BREATH AND WHEEZING 1 Inhaler 3 12/17/2014 Active Start: 11-20-2008 albuterol 2 pu ffs q 4-6 h prn sob, 0, 0 Start Date: 11/20/08 Status: Ordered take 2.5 mg by inhal ation every four hours as needed albuterol 2.5 mg /3 mL (0.083 %) nebulizer solution Use 2.5 mg via nebulizer every 4 hours as needed. 0 Active Comment on above: Use 2.5 mg via nebul izer every 4 hours as needed. Inhale 2 Puffs as in structed every 4 hours as needed. NEEDED FOR SHORTNESS OF BREATH AND WHEEZING albuterol 0.833 mg/ml / ipratropium bromide 0.167 mg/ml inhalation solution (19 sources) Anticholinergic, beta2-Adrenergic Agonist Start: 022 take 1 dose by inhalation every four hours as needed for wheezing albuterol-ipratropiu m 2.5 mg-0.5 mg/3 mL inhalation solution Dose = 3 mL, Inhalation, q4h, PRN as needed for shortness of breath or wheezing, # 180 mL, 1 Refill(s), Pharmacy: [facility] #[id number], 170.8, cm, 03/13/24 11:04:00 EDT, Height, kg, 03/13/24 11:04:00 EDT, Dosing Weight Start Date: 03/13/24 Status: Ordered Quantity: 180.0 Unit: mL Repeat number: 2 amitriptyline hydrochloride 100 mg oral tablet (20 sources) Tricyclic Antidepressant Start: amitriptyline 100 mg oral tablet Dose : 100 mg = 1 tab(s), Oral, qHS, # 90 tab(s), 1 Refill(s), Pharmacy: [facility] #[id number], 170.2, cm, 08/26/24 16:10:00 EDT, Height, kg, 08/26/24 16:10:00 EDT, Dosing Weight Start Date: 08/26/24 Status: Ordered Quantity: 90.0 Unit: tab(s) Repeat number: 2 Start: 03-13-2024 amitriptyline 100 mg oral tablet Dose : 100 mg = 1 tab(s), Oral, qHS, # 90 tab(s), 1 Refill(s), Pharmacy: [facility] #[id number], 170.8, cm, 03/13/24 11:04:00 EDT, Height, kg, 03/13/24 11:04:00 EDT, Dosing Weight Start Date: 03/13/24 Status: Ordered Start: 04-22-2023 amitriptyline 100 mg oral tablet Dose : 100 mg = 1 tab(s), Oral, qHS Start Date: 04/22/23 Status: Ordered Start: 11-23-2015 take 1 tablet by shawanda once daily AMITRIPTYLINE HCL 100 MG TABS One tablet by mouth daily AMITRIPTYLINE HCL [id number] Opal Avila Start: 01-26-2014 take 100 mg by mouth at bedtim e Amitriptyline Active 100 MG PO AT BEDTIME January 26, 2014 12:00am anxiety med (1 source) Start: 08-15-2014 take 2 tablets by mouth once daily at bedtime anxiety med anxiety med, 2 tablets, Oral, qHS, 0 Refill(s) Start Date: 08/15/14 Status: Ordered atorvastatin 80 mg oral tablet (10 sources) HMG-CoA Reductase Inhibitor Start: 07-16-2018 take 1 tablet by mouth once daily Atorvastatin (Lipitor) 80 mg tablet Active 80 MG PO DAILY July 16, 2018 12:00am Start: 10-15-2011 take 1 tablet by shawanda th once daily LIPITOR 20 MG TABS One tablet by mouth daily ATORVASTATIN CALCIUM [id number] Dragan Zee MD Start: 10-15-2011 take 1 tablet by shawanda th once daily LIPITOR 80 MG TABS One tablet by mouth daily every night ATORVASTATIN CALCIUM [id number] Opal Avila Azithromycin 5 Day Dose Pack 250 mg oral tablet (1 source) Start: 03-14-2023 End: 03-19-2023 take 1 tablet by mouth once daily Azithromycin 5 Day Dose Pack 250 mg oral tablet 1 dose, Oral, Daily, X 5 day(s), # 6 tab(s), 0 Refill(s), 03/19/23 19:43:00 EDT, Pharmacy: [facility] #[id number], COPD - Chronic obstructive pulmonary disease Acute exacerbation of COPD, 97.7 Start Date: 03/14/23 Stop Date: 03/19/23 Status: Ordered baclofen 10 mg oral tablet (19 sources) gamma-Aminobuty deya Acid-ergic Agonist Start: 01-22-2025 baclofen 10 mg oral tablet Dose : 10 mg = 1 tab(s), Oral, qHS, # 90 tab(s), 0 Refill(s), Pharmacy: [facility], 170.2, cm, 01/22/25 14:12:00 EDT, Height, kg, 01/22/25 14:12:00 EDT, Dosing Weight Start Date: 01/22/25 Status: Ordered Quantity: 90.0 Unit: tab(s) Repeat number: 1 Start: 06-22-2024 baclofen 10 mg oral tablet Dose : 10 mg = 1 tab(s), Oral, qHS, # 90 tab(s), 0 Refill(s), [facility]: [facility] #[id number], 170.2, cm, 06/01/24 13:43:00 EDT, Height, kg, 06/01/24 13:43:00 EDT, Dosing Weight Start Date: 06/22/24 Status: Ordered Start: 03-13-2024 baclofen 10 mg oral tablet Dose : 10 mg = 1 tab(s), Oral, qHS, # 90 tab(s), 0 Refill(s), Pharmacy: [facility] #[id number], 170.8, cm, 03/13/24 11:04:00 EDT, Height, kg, 03/13/24 11:04:00 EDT, Dosing Weight Start Date: 03/13/24 Status: Ordered Start: 08-24-2022 End: 11-27-2023 baclofen 10 mg oral tablet D ose : 10 mg = 1 tab(s), Oral, qHS Start Date: 04/22/23 Status: Ordered Kocuxvwfyh-Oaxzgckl-Oayslgvl ol (4 sources) Corticosteroid, beta2-Adrenergic Agonist Start: 05-01-2023 Jnqpzcjosj-Wgnbfqrw-Nnxxriro ol (Breztri Aerosphere) 160-9-4.8 mcg/actuation HFA aerosol inhaler Active 2 INH INHALATION TWICE A DAY 10.7 May 01, 2023 12:00am cholecalciferol 1.25 mg oral capsule (8 sources) Vitamin D Start: 07-16-2018 t a k e 5 0 0 0 0 [ I U ] b y m o u t h e v e r y w e e k Cholecalciferol (Vitamin D3) Active 92322 UNIT PO EVERY WEEK July 16, 2018 12:00am cloNIDine hydrochloride 0.1 mg oral tablet (6 sources) Central alpha-2 Adrenergic Agonist Start: 11-30-2024 t a k e 1 t a b l e t b y m o u t h o n c e d a i l y a t b e d t i m e cloNIDine 0.1 mg oral tablet Dose : 0.1 mg = 1 tab(s), Oral, TID, PRN hypertension or anxiety, Take if BP > 140 systolic or > 90 diastolic, or 30-60 min before stressful events for anxiety / BP reasons. Consider taking QHS, # 30 tab(s), 1 Refill(s), Pharmacy: [facility] #[id number], Low back pain with left-sided sciatica Left leg weakness, 170.2, cm, 11/30/24 13:10:00 EST, Height, kg, 11/30/24 13:10:00 EST, Dosing Weight Start Date: 11/30/24 Status: Ordered Quantity: 30.0 Unit: tab(s) Repeat number: 2 Indications: Lumbago with sciatica, left side; Other symptoms and signs involving the musculoskeletal system; Start: 06-22-2024 cloNIDine 0.1 mg oral tablet Dose : 0.1 mg = 1 tab(s), Oral, TID, Take for BP > 140 systolic or > 90 diastolic, or 30-60 min before stressful events, # 30 tab(s), 1 Refill(s), Pharmacy: [facility] #[id number], Low back pain with left-sided sciatica Left leg weakness, 170.2, cm, 06/01/24 13:43:00 EDT, Height, kg, 06/01/24 13:43:00 EDT, Dosing Weight Start Date: 06/22/24 Status: Ordered diclofenac sodium 0.01 mg/mg topical gel (6 sources) Nonsteroidal Anti-inflammatory Drug Start: 06-22-2024 diclofenac 1% top ical gel Apply 1 alberto, Topical, QID, # 100 gram(s), 2 Refill(s), Pharmacy: [facility] #[id number], Gel, 170.2, cm, 06/01/24 13:43:00 EDT, Height, 72.7, kg, 06/01/24 13:43:00 EDT, Dosing Weight Start Date: 06/22/24 Status: Ordered Quantity: 100.0 Unit: g Repeat number: 3 Indications: Other symptoms and signs involving the musculoskeletal system; Essential (primary) hypertension; Other psychoactive substance use, unspecified, in remission; Polyneuropathy, unspecified; Lumbago with sciatica, left side; DME MISCellaneous (13 sources) Start: 03-16-2025 DME MISCellane ous See Instructions, Generic store-brand glucometer. Check fasting AM glucose 2-7 days weekly, # 1 EA, 0 Refill(s), Pharmacy: [facility], [facility], 169.9, cm, 03/16/25 16:10:00 EDT, Height, 86.1, kg, 03/16/25 16:10:00 EDT, Dosing Weight Start Date: 03/16/25 Status: Ordered Quantity: 1.0 Unit: EA Repeat number: 1 Indications: Encounter for general adult medical examination without abnormal findings; Start: 01-22-2025 DME MISCellane ous See Instructions, Nebulizer tubing and medicine cup, # 1 EA, 1 Refill(s), Pharmacy: [facility], COPD, 170.2, cm, 01/22/25 14:12:00 EDT, Height, 85.5, kg, 01/22/25 14:12:00 EDT, Dosing Weight Start Date: 01/22/25 Status: Ordered Quantity: 1.0 Unit: EA Repeat number: 2 Indications: Chronic obstructive pulmonary disease, unspecified; Start: 11-30-2024 DME MISCellane ous See Instructions, Knee-high compression stockings - Medium (15-20 mmHg).., # 1 EA, 0 Refill(s), Pharmacy: [facility] #[id number], Leg edema, right, 170.2, cm, 11/30/24 13:10:00 EST, Height, 87.6, kg, 11/30/24 13:10:00 EST, Dosing Weight Start Date: 11/30/24 Status: Ordered Quantity: 1.0 Unit: EA Repeat number: 1 Indications: Localized edema; Start: 11-30-2024 DME MISCellane ous See Instructions, Knee-high compression stockings - Mild (8-15 mmHg), # 1 EA, 0 Refill(s), Pharmacy: [facility] #[id number], Leg edema, right, 170.2, cm, 11/30/24 13:10:00 EST, Height, 87.6, kg, 11/30/24 13:10:00 EST, Dosing Weight Start Date: 11/30/24 Status: Ordered Quantity: 1.0 Unit: EA Repeat number: 1 Indications: Localized edema; Start: 06-16-2024 DME MISCellane ous See Instructions, Nebulizer tubing and medicine cup, # 1 EA, 1 Refill(s), COPD, 72.7 Start Date: 06/16/24 Status: Ordered docusate sodium 100 mg oral capsule (12 sources) Start: 03-18-2025 docusate sodiu m 100 mg oral capsule Dose : 100 mg = 1 cap(s), Oral, BID, PRN for constipation, # 60 cap(s), 0 Refill(s), Pharmacy: [facility], 169.9, cm, 03/16/25 16:10:00 EDT, Height, kg, 03/16/25 16:10:00 EDT, Dosing Weight Start Date: 03/18/25 Status: Ordered Quantity: 60.0 Unit: cap(s) Repeat number: 1 Start: 01-22-2025 docusate calci um 240 mg oral capsule Dose : 240 mg = 1 cap(s), Oral, BID, # 60 cap(s), 1 Refill(s), Pharmacy: [facility], Dark stools Constipation, 170.2, cm, 01/22/25 14:12:00 EDT, Height, kg, 01/22/25 14:12:00 EDT, Dosing Weight Start Date: 01/22/25 Status: Ordered Quantity: 60.0 Unit: cap(s) Repeat number: 2 Indications: Other fecal abnormalities; Constipation, unspecified; Start: 02-18-2024 docusate calci um 240 mg oral capsule Dose : 240 mg = 1 cap(s), Oral, BID, # 60 cap(s), 1 Refill(s), [facility][id number], Dark stools Constipation, 170.8, cm, 02/18/24 9:06:00 EDT, Height, kg, 02/18/24 9:06:00 EDT, Dosing Weight Start Date: 02/18/24 Status: Ordered DULoxetine 60 mg delayed release oral capsule (12 sources) Serotonin and Norepinephrine Reuptake Inhibitor Start: 01-22-2025 Cymbalta 60 mg oral delayed release capsule Dose : 60 mg = 1 cap(s), Oral, qDay, # 100 cap(s), 0 Refill(s), Pharmacy: [facility], 170.2, cm, 01/22/25 14:12:00 EDT, Height, kg, 01/22/25 14:12:00 EDT, Dosing Weight Start Date: 01/22/25 Status: Ordered Quantity: 100.0 Unit: cap(s) Repeat number: 1 Start: 08-14-2024 Cymbalta 30 mg oral delayed release capsule Dose : 30 mg = 1 cap(s), Oral, qDay, # 90 cap(s), 1 Refill(s), Pharmacy: [facility] #[id number], 170.2, cm, 08/14/24 15:23:00 EDT, Height, kg, 08/14/24 15:23:00 EDT, Dosing Weight Start Date: 08/14/24 Status: Ordered Start: 03-03-2024 Cymbalta 30 mg oral delayed release capsule Dose : 30 mg = 1 cap(s), Oral, qDay, # 90 cap(s), 1 Refill(s), Pharmacy: [facility] #[id number], 170.8, cm, 03/13/24 11:04:00 EDT, Height, kg, 03/13/24 11:04:00 EDT, Dosing Weight Start Date: 03/13/24 Status: Ordered Start: 02-18-2024 Cymbalta 30 mg oral delayed release capsule Dose : 30 mg = 1 cap(s), Oral, qDay, # 30 cap(s), 0 Refill(s), Pharmacy: [facility] #[id number], 170.8, cm, 02/18/24 9:06:00 EDT, Height, kg, 02/18/24 9:06:00 EDT, Dosing Weight Start Date: 02/18/24 Status: Ordered fezolinetant 45 MG Oral Tablet [Veozah] (6 sources) Start: 03-13-2024 Veozah 45 mg o ral tablet Dose : 45 mg = 1 tab(s), Oral, qDay, at the same time every day, # 30 tab(s), 1 Refill(s), Pharmacy: [facility] #[id number], Vasomotor symptoms due to menopause Hot flashes, 170.8, cm, 03/13/24 11:04:00 EDT, Height, kg, 03/13/24 11:04:00 EDT, Dosing Weight Start Date: 03/13/24 Status: Ordered FLUoxetine 10 mg oral capsule (14 sources) Serotonin Reuptake Inhibitor Start: 02-18-2024 FLUoxetine 10 mg ora l capsule Dose : 10 mg = 1 cap(s), Oral, qDay, We are taping use with plan to cease by 03/04/2024 transitioning to cymbalta, # 15 tab(s), 0 Refill(s), Pharmacy: [facility] #[id number], 170.8, cm, 02/18/24 9:06:00 EDT, Height, kg, 02/18/24 9:06:00 EDT, Dosing Weight Start Date: 02/18/24 Status: Ordered Start: 04-22-2023 FLUoxetine 20 mg oral capsule Dose : 20 mg = 1 cap(s), Oral, qDay Start Date: 04/22/23 Status: Ordered Start: 07-16-2018 End: 09-13-2020 take 1 capsule by mouth twice daily Fluoxetine (Prozac) 20 mg capsule Discontinued 20 MG PO TWICE A DAY July 16, 2018 12:00am September 13, 2020 3:24pm Start: 10-09-2011 take 1 tablet by shawanda th twice daily PROZAC 40 MG CAPS One tablet by mouth twice daily FLUOXETINE HCL [id number] Dragan Zee MD Start: 10-09-2011 take 1 tablet by shawanda th twice daily PROZAC 20 MG CAPS One tablet by mouth twice daily FLUOXETINE HCL [id number] Opal Avila gabapentin 600 mg oral tablet (20 sources) Anti-epileptic Agent Start: 04-14-2025 End: 05-14-2025 gabapentin 600 mg oral tablet Dose : 1,200 mg = 2 tab(s), Oral, TID, IN LIEU OF PCP ABSENCE, # 180 tab(s), 0 Refill(s), Pharmacy: [facility], Pain syndrome, chronic, 169.9, cm, 03/16/25 16:10:00 EDT, Height, 86.1, kg, 03/16/25 16:10:00 EDT, Dosing Weight Start Date: 04/14/25 Stop Date: 05/14/25 Status: Ordered Quantity: 180.0 Unit: tab(s) Repeat number: 1 Indications: Chronic pain syndrome; Start: 02-18-2025 End: 03-20-2025 gabapentin 600 mg oral table t Dose : 1,200 mg = 2 tab(s), Oral, TID, IN LIEU OF PCP ABSENCE, # 180 tab(s), 0 Refill(s), Pharmacy: [facility], Pain syndrome, chronic, 170.2, cm, 01/22/25 14:12:00 EDT, Height, 85.5, kg, 01/22/25 14:12:00 EDT, Dosing Weight Start Date: 02/18/25 Stop Date: 03/20/25 Status: Ordered Quantity: 180.0 Unit: tab(s) Repeat number: 1 Indications: Chronic pain syndrome; Start: 06-23-2024 End: 07-23-2024 gabapentin 600 mg oral table t Dose : 1,200 mg = 2 tab(s), Oral, TID, Patient spilled her Jun 10 prescription. no longer viable., # 180 tab(s), 0 Refill(s), [facility] #[id number], Peripheral neuropathy, 170.2, cm, 06/01/24 13:43:00 EDT, Height, 72.7, kg, 06/01/24 13:43:00 EDT, Dosing Weight Start Date: 06/23/24 Stop Date: 07/23/24 Status: Ordered Start: 01-13-2024 End: 06-11-2024 gabapentin 600 mg oral table t Dose : 1,200 mg = 2 tab(s), Oral, TID, Fill 03/13/24, 04/11/24, 05/11/24, # 180 tab(s), 2 Refill(s), [facility] #[id number], Peripheral neuropathy, 170.8, cm, 03/13/24 11:04:00 EDT, Height, 85.6, kg, 03/13/24 11:04:00 EDT, Dosing Weight Start Date: 03/13/24 Stop Date: 06/11/24 Status: Ordered Start: 10-08-2011 take 1 tablet by shawanda th three times daily NEURONTIN 800 MG TABS One tablet by mouth three times daily GABAPENTIN [id number] Carmenwilber Vidal Start: 12-01-2010 End: 03-03-2024 take 1 tablet by mouth four times daily Gabapentin (Neurontin) 800 mg tablet Discontinued 800 MG PO .qid July 16, 2018 12:00am March 03, 2024 2:52pm Start: 11-14-2008 take 1 dose by mouth three times daily gabapentin Dose : 1,200 mg =, PO, TID, 0 Refill(s), current med (Hx) Start Date: 11/14/08 Status: Ordered Start: 11-14-2008 gabapentin 800 mg, PO, QID, 0, 0 Start Date: 11/14/08 Status: Ordered Comment on above: Take one(1) tablet f our (4) times daily. 12 hr guaiFENesin 600 mg extended release oral tablet (16 sources) Start: 01-22-2025 Mucinex 600 mg oral tablet, extended release Dose : 600 mg = 1 tab(s), Oral, q12h, PRN chest congestion, # 100 tab(s), 3 Refill(s), Pharmacy: [facility], 170.2, cm, 01/22/25 14:12:00 EDT, Height, kg, 01/22/25 14:12:00 EDT, Dosing Weight Start Date: 01/22/25 Status: Ordered Quantity: 100.0 Unit: tab(s) Repeat number: 4 Start: 03-13-2024 Mucinex 600 mg oral tablet, extended release Dose : 600 mg = 1 tab(s), Oral, q12h, PRN chest congestion, # 100 tab(s), 3 Refill(s), Pharmacy: [facility] #[id number], 170.8, cm, 03/13/24 11:04:00 EDT, Height, kg, 03/13/24 11:04:00 EDT, Dosing Weight Start Date: 03/13/24 Status: Ordered Start: 10-10-2023 take 1 mg by mouth e very twelve hours Mucinex 600 mg oral tablet, extended release mg = tab(s), Oral, q12h, 0 Refill(s) Start Date: 10/10/23 Status: Ordered Start: 05-01-2023 End: 05-28-2023 take 1200 mg by mouth every twelve hours Guaifenesin Discontinued 1200 MG PO Q12H 60 May 01, 2023 12:00am May 28, 2023 2:23am hydrOXYzine hydrochloride 25 mg oral tablet (14 sources) Antihistamine Start: 02-11-2025 hydrOXYzine hy drochloride 25 mg oral tablet Dose : 25 mg = 1 tab(s), Oral, BID, PRN anxiety, # 30 tab(s), 2 Refill(s), Pharmacy: [facility], 170.2, cm, 01/22/25 14:12:00 EDT, Height, kg, 01/22/25 14:12:00 EDT, Dosing Weight Start Date: 02/11/25 Status: Ordered Quantity: 30.0 Unit: tab(s) Repeat number: 3 Start: 03-03-2024 hydrOXYzine hy drochloride 25 mg oral tablet Dose : 25 mg = 1 tab(s), Oral, BID, PRN anxiety, # 30 tab(s), 2 Refill(s), Pharmacy: [facility] #[id number], 170.8, cm, 03/13/24 11:04:00 EDT, Height, kg, 03/13/24 11:04:00 EDT, Dosing Weight Start Date: 03/13/24 Status: Ordered Start: 04-22-2023 hydrOXYzine hy drochloride 25 mg oral tablet Dose : 25 mg = 1 tab(s), Oral, BID, PRN anxiety Start Date: 04/22/23 Status: Ordered lidocaine 0.05 mg/mg topical ointment (2 sources) Antiarrhythmic, Amide Local Anesthetic Start: 06-22-2024 End: 06-29-2024 apply 1 dose topically three times daily lidocaine 5% topical ointment Dose = 1 appl, Topical, TID, X 7 day(s), # 50 gram(s), 0 Refill(s), Pharmacy: [facility] #[id number], Low back pain with left-sided sciatica Left leg weakness, 170.2, cm, 06/01/24 13:43:00 EDT, Height, kg, 06/01/24 13:43:00 EDT, Dosing Weight Start Date: 06/22/24 Stop Date: 06/29/24 Status: Ordered LORazepam 0.5 mg oral tablet (14 sources) Benzodiazepine Start: 08-15-2014 take 1 tablet by mouth three times daily Lorazepam (Ativan) 0.5 mg tablet Active 0.5 MG PO THREE TIMES A DAY July 16, 2018 12:00am Start: 10-08-2011 End: 10-09-2011 take 1 tablet by mouth every twelve hours as needed ATIVAN 0.5 MG TABS 1 tablet by mouth Q12H, as needed LORAZEPAM [id number] Dragan Zee MD Comment on above: Take 0.5 mg by mouth three times daily as needed. lurasidone hydrochloride 40 mg oral tablet (20 sources) Atypical Antipsychotic Start: 03-13-2024 lurasidone 40 mg oral tablet Dose : 40 mg = 1 tab(s), Oral, qDay, # 90 tab(s), 0 Refill(s), [facility][id number], 170.8, cm, 03/13/24 11:04:00 EDT, Height, kg, 03/13/24 11:04:00 EDT, Dosing Weight Start Date: 03/13/24 Status: Ordered Quantity: 90.0 Unit: tab(s) Repeat number: 1 Start: 04-22-2023 lurasidone 40 mg oral tablet Dose : 40 mg = 1 tab(s), Oral, qDay Start Date: 04/22/23 Status: Ordered Start: 09-13-2020 Lurasidone (La tuda) 60 mg tablet Active 60 MG PO DAILY September 13, 2020 1:00am must administer with food (at least 350 calories) meloxicam 7.5 mg oral tablet (11 sources) Nonsteroidal Anti-inflammatory Drug Start: 03-17-2025 Mobic 7.5 mg oral tablet Dose : 7.5 mg = 1 tab(s), Oral, qDay, can increase to 15mg if needed, # 30 tab(s), 0 Refill(s), Pharmacy: [facility], Dark stools Constipation, 169.9, cm, 03/16/25 16:10:00 EDT, Height, kg, 03/16/25 16:10:00 EDT, Dosing Weight Start Date: 03/17/25 Status: Ordered Quantity: 30.0 Unit: tab(s) Repeat number: 1 Indications: Constipation, unspecified; Other fecal abnormalities; Start: 01-22-2025 Mobic 7.5 mg o ral tablet Dose : 7.5 mg = 1 tab(s), Oral, qDay, can increase to 15mg if needed, # 90 tab(s), 0 Refill(s), Pharmacy: [facility], Dark stools Constipation, 170.2, cm, 01/22/25 14:12:00 EDT, Height, kg, 01/22/25 14:12:00 EDT, Dosing Weight Start Date: 01/22/25 Status: Ordered Quantity: 90.0 Unit: tab(s) Repeat number: 1 Indications: Other fecal abnormalities; Constipation, unspecified; Start: 06-23-2024 Mobic 7.5 mg o ral tablet Dose : 7.5 mg = 1 tab(s), Oral, qDay, can increase to 15mg if needed, # 90 tab(s), 0 Refill(s), [facility]: [facility] #[id number], Dark stools Constipation, 170.2, cm, 06/01/24 13:43:00 EDT, Height, kg, 06/01/24 13:43:00 EDT, Dosing Weight Start Date: 06/23/24 Status: Ordered Start: 03-13-2024 Mobic 7.5 mg o ral tablet Dose : 7.5 mg = 1 tab(s), Oral, qDay, can increase to 15mg if needed, # 90 tab(s), 0 Refill(s), [facility]acy: [facility] #[id number], Dark stools Constipation, 170.8, cm, 03/13/24 11:04:00 EDT, Height, kg, 03/13/24 11:04:00 EDT, Dosing Weight Start Date: 03/13/24 Status: Ordered Start: 02-18-2024 Mobic 7.5 mg o ral tablet Dose : 7.5 mg = 1 tab(s), Oral, qDay, can increase to 15mg if needed, # 30 tab(s), 0 Refill(s), [facility]acy: [facility] #[id number], Dark stools Constipation, 170.8, cm, 02/18/24 9:06:00 EDT, Height, kg, 02/18/24 9:06:00 EDT, Dosing Weight Start Date: 02/18/24 Status: Ordered Misc Medication (1 source) Start: 08-15-2014 take 1 tablet by mouth once daily at bedtime Misc Medication 1 tablet, Oral, qHS Start Date: 08/15/14 Status: Ordered Nebulizer Compressor (11 sources) Start: 01-09-2023 Nebulizer Comp ressor Active 0 .ROUTE .MEDSUPPLY January 09, 2023 11:29am As directed Start: 08-28-2022 End: 01-09-2023 Nebulizer Compressor Discont inued 0 .ROUTE .MEDSUPPLY August 28, 2022 12:19pm January 09, 2023 11:29am As directed Start: 08-28-2022 Nebulizer Comp ressor Active 0 .ROUTE .MEDSUPPLY August 28, 2022 11:19am As directed omeprazole 20 mg delayed release oral capsule (13 sources) Proton Pump Inhibitor Start: 01-22-2025 omeprazole 20 mg ora l delayed release capsule Dose : 20 mg = 1 cap(s), Oral, qDay, for fdc NSAID protection, # 90 cap(s), 0 Refill(s), Pharmacy: [facility], Dark stools Constipation, 170.2, cm, 01/22/25 14:12:00 EDT, Height, kg, 01/22/25 14:12:00 EDT, Dosing Weight Start Date: 01/22/25 Status: Ordered Quantity: 90.0 Unit: cap(s) Repeat number: 1 Indications: Other fecal abnormalities; Constipation, unspecified; Start: 07-02-2024 omeprazole 20 mg oral delayed release capsule Dose : 20 mg = 1 cap(s), Oral, qDay, NEEDS FOLLOW UP APPT, # 30 cap(s), 0 Refill(s), Pharmacy: [facility] #[id number], Dark stools Constipation, 170.2, cm, 06/01/24 13:43:00 EDT, Height, kg, 06/01/24 13:43:00 EDT, Dosing Weight Start Date: 07/02/24 Status: Ordered Start: 06-23-2024 omeprazole 20 mg oral delayed release capsule Dose : 20 mg = 1 cap(s), Oral, qDay, # 90 cap(s), 0 Refill(s), Pharmacy: [facility] #[id number], Dark stools Constipation, 170.2, cm, 06/01/24 13:43:00 EDT, Height, kg, 06/01/24 13:43:00 EDT, Dosing Weight Start Date: 06/23/24 Status: Ordered Start: 03-13-2024 omeprazole 20 mg oral delayed release capsule Dose : 20 mg = 1 cap(s), Oral, qDay, # 90 cap(s), 1 Refill(s), Pharmacy: [facility] #[id number], Dark stools Constipation, 170.8, cm, 03/13/24 11:04:00 EDT, Height, kg, 03/13/24 11:04:00 EDT, Dosing Weight Start Date: 03/13/24 Status: Ordered Start: 02-18-2024 omeprazole 20 mg oral delayed release capsule Dose : 20 mg = 1 cap(s), Oral, BID, # 90 cap(s), 0 Refill(s), [facility]acy: [facility] #[id number], Dark stools Constipation, 170.8, cm, 02/18/24 9:06:00 EDT, Height, kg, 02/18/24 9:06:00 EDT, Dosing Weight Start Date: 02/18/24 Status: Ordered Start: 08-17-2014 take 1 tablet by shawanda th once daily Omeprazole 20 mg TbEC Take 20 mg by mouth once daily. 30 tablet 6 08/17/2014 Active Comment on above: Take 20 mg by mouth once daily. PEP device (8 sources) Start: 05-01-2023 PEP device Active 0 .ROUTE .MEDSUPPLY May 01, 2023 12:00am with training polyethylene glycol 3350 [id number] mg powder for oral solution (15 sources) Osmotic Laxative Start: 02-18-2024 MiraLax oral powder for reconstitution See Instructions, 17 gram(s) orally every hour until stool. Dissolve in water or juice, # 12 EA, 0 Refill(s), [id number], Dark stools Constipation, 170.8, cm, 02/18/24 9:06:00 EDT, Height, kg, 02/18/24 9:06:00 EDT, Dosing Weight Start Date: 02/18/24 Status: Ordered Quantity: 12.0 Unit: EA Repeat number: 1 Indications: Other fecal abnormalities; Constipation, unspecified; Start: 02-18-2024 End: 03-19-2024 take 17 doses by mouth once daily MiraLax oral powder for reconstitution Dose : 17 gram(s) =, Oral, qDay, dissolve in water or juice. AFTER blowout regimen 02/18/24, # 30 EA, 0 Refill(s), [id number], Dark stools Constipation, 170.8, cm, 02/18/24 9:06:00 EDT, Height, kg, 02/18/24 9:06:00 EDT, Dosing Weight Start Date: 02/18/24 Stop Date: 03/19/24 Status: Ordered predniSONE 20 mg oral tablet (13 sources) Start: 04-20-2025 End: 04-25-2025 predniSONE 20 mg oral tablet Dose : 40 mg = 2 tab(s), Oral, qDay, X 5 day(s), # 10 tab(s), 0 Refill(s), 04/25/25 12:28:00 PM EDT, Pharmacy: [facility], Left knee pain, 169.9, cm, 04/20/25 11:35:00 EDT, Height, kg, 04/20/25 11:35:00 EDT, Dosing Weight Start Date: 04/20/25 Stop Date: 04/25/25 Status: Ordered Quantity: 10.0 Unit: tab(s) Repeat number: 1 Indications: Pain in left knee; Start: 06-22-2024 End: 07-06-2024 take 0.5 tablet by mouth once daily prednisone 10mg tab (TAPER) Taper 60-40-20-10 mg x 3 days then 5mg x 2 days, Oral, Daily, Take 6 tabs daily x 3days, then 4 tabs daily x 3days, then 2 tabs daily x 3days,then 1 tab daily x 3days,then 1/2 tab daily x 2 days, # 40 tab(s), 0 Refill(s), [facility]acy: [facility] #[id number], Low back pain with left-sided sciatica Left leg weakness, 170.2, cm, 06/01/24 13:43:00 EDT, Height, kg, 06/01/24 13:43:00 EDT, Dosing Weight Start Date: 06/22/24 Stop Date: 07/06/24 Status: Ordered Start: 01-14-2024 End: 03-03-2024 take 40 mg by mouth once daily Prednisone Discontinued 40 MG PO DAILY January 14, 2024 12:00am March 03, 2024 2:52pm Start: 03-14-2023 End: 03-23-2023 take 1 tablet by mouth once daily prednisone 20mg tab (TAPER) Taper 60-40-20 mg x 3 days each dose, Oral, Daily, X 9 day(s), # 18 tab(s), 0 Refill(s), 03/23/23 19:43:00 EDT, Pharmacy: [facility] #[id number], COPD - Chronic obstructive pulmonary disease Acute exacerbation of COPD Start Date: 03/14/23 Stop Date: 03/23/23 Status: Ordered Start: 08-24-2022 End: 05-01-2023 Prednisone Discontinued 10 M G PO daily August 24, 2022 12:00am May 01, 2023 11:09am take 4 tabs for three days, then 3 tabs for three days, then 2 tabs for three days, then 1 tab for 3 days Start: 08-01-2016 End: 08-13-2016 PREDNISONE 10 MG TABS Take 4 tabs by mouth for 3 days, then 3 tabs by mouth for 3 days, then 2 tabs by mourth for 3 days, then 1 tab by mouth for 3 days. PREDNISONE [id number] Fernando Lundy pregabalin 150 mg oral capsu le (1 source) Start: 08-14-2024 End: 08-21-2024 Lyrica 150 mg oral capsule D ose : 150 mg = 1 cap(s), Oral, TID, # 21 cap(s), 0 Refill(s), Pharmacy: [facility] #[id number], Peripheral neuropathy, 170.2, cm, 08/14/24 15:23:00 EDT, Height, 76, kg, 08/14/24 15:23:00 EDT, Dosing Weight Start Date: 08/14/24 Stop Date: 08/21/24 Status: Ordered Completed/Discontinued Medications Medication Drug Class(es) Dates Sig (Normalized) Sig (Original) Aclidinium [place] (9 sources) Start: 07-16-2018 End: 07-29-2018 Aclidinium [place] (Tudorza Pressair) 400 mcg/actuation aerosol powdr breath activated Discontinued 1 INH INHALATION TWICE A DAY July 15, 2018 11:00pm July 29, 2018 11:39am Start: 07-16-2018 End: 07-29-2018 Aclidinium [place] (Tudorza Pressair) 400 mcg/actuation aerosol powdr breath activated Discontinued 1 INH INHALATION TWICE A DAY July 16, 2018 12:00am July 29, 2018 12:39pm Start: 04-26-2016 take 1 puff(s) by in halation twice daily TUDORZA PRESSAIR 400 MCG/ACT AEPB 1 puff INH Twice daily ACLIDINIUM BROMIDE [id number] Fernando Lundy amoxicillin 875 mg / clavulanate 125 mg oral tablet (6 sources) Penicillin-class Antibacterial Start: 08-24-2022 End: 05-01-2023 take 1 tablet by mouth twice daily Amoxicillin-Pot Clavulanate Discontinued 1 TABLET PO TWICE A DAY August 24, 2022 12:00am May 01, 2023 11:09am ARIPiprazole 5 mg oral tablet (10 sources) Atypical Antipsychotic Start: 01-26-2014 End: 07-16-2018 take 5 mg by mouth once daily Aripiprazole Discontinued 5 MG PO DAILY January 26, 2014 12:00am July 16, 2018 2:13pm Start: 12-01-2010 take 1 tablet by shawanda once daily aripiprazole (ABILIFY) 2 mg ORAL tablet Take one(1) tablet daily. 0 12/01/2010 Active Comment on above: Take one(1) tablet d aily. aspirin 81 mg oral tablet (2 sources) Platelet Aggregation Inhibitor, Nonsteroidal Anti-inflammatory Drug Start: 10-08-20 End: 11-23-19 16 take 1 tablet by mouth once daily ASPIRIN 81 MG TABS One tablet by mouth daily ASPIRIN [id number] Opal Avila azithromycin 250 mg oral tablet (2 sources) Macrolide Antimicrobial take 1 tablet by mouth once daily azithromycin (ZITHROMAX) 250 mg tablet Take 250 mg by mouth once daily. 0 Active Comment on above: Take 250 mg by mouth once daily. benzonatate 200 mg oral capsule (2 sources) Non-narcotic Antitussive take 1 capsule by mouth every eight hours as needed Benzonatate (TESSALON) 200 mg capsule Take 200 mg by mouth three times daily as needed. 0 Active Comment on above: Take 200 mg by mouth three times daily as needed. 120 actuat budesonide 0.16 mg/actuat / formoterol fumarate 0.0045 mg/actuat metered dose inhaler (9 sources) Corticosteroid, beta2-Adrenergic Agonist Start: 11-23-19 16 take 2 puff(s) by inhalation twice daily SYMBICORT 160-4.5 MCG/ACT AERO 2 puffs INH twice daily BUDESONIDE-FORMOTER OL FUMARATE [id number] Opal Avila Start: 01-26-2014 End: 07-29-2018 take 1 puff(s) by inhalation twice daily Budesonide-Formoterol Discontinued 2 PUFF INHALATION TWICE A DAY January 25, 2014 11:00pm July 29, 2018 11:39am Start: 01-26-2014 End: 07-29-2018 take 1 puff(s) by inhalation twice daily Budesonide-Formoterol Discontinued 2 PUFF INHALATION TWICE A DAY January 26, 2014 12:00am July 29, 2018 12:39pm buprenorphine 2 mg / naloxone 0.5 mg sublingual film (20 sources) Partial Opioid Agonist, Opioid Antagonist Start: 05-30-2023 take 0.5 mg under the tongue three times daily Suboxone 2 mg-0.5 mg sublingual film Dose = 1 EA, Sublingual, TID, # 30 EA, 0 Refill(s), 81.6 Start Date: 05/30/23 Status: Ordered Quantity: 30.0 Unit: EA Repeat number: 1 Start: 07-16-2018 Buprenorphine- Naloxone (Suboxone) 4-1 mg film Active 1 FILM SL .COMPLEX July 16, 2018 12:00am 1 film SUBLINGUAL in the morning, half film in PM Start: 08-15-2014 take 1 dose under th e tongue twice daily Suboxone 8 mg-2 mg sublingual film Dose = 1 EA, Sublingual, BID Start Date: 08/15/14 Status: Ordered Start: 07-06-2014 buprenorphine- nalOXone SL 8-2 mg subl Dissolve 1 tablet under the tongue twice daily. 0 07/06/2014 Active Start: 01-26-2014 End: 07-16-2018 Buprenorphine-Naloxone Disco ntinued 2 EACH SL DAILY January 26, 2014 12:00am July 16, 2018 2:13pm Start: 10-09-2011 SUBOXONE 2-0.5 MG FILM one tablet daily BUPRENORPHINE HCL-NALOXONE HCL [id number] Yaz Hernandez RN Start: 10-09-2011 SUBOXONE 4-1 M G FILM 1 film in morning, 1/2 film at night BUPRENORPHINE HCL-NALOXONE HCL [id number] Opal Avila Comment on above: Dissolve 1 tablet un sam the tongue twice daily. cefdinir 300 mg oral capsule (3 sources) Cephalosporin Antibacterial Start: 01-14-20 End: 03-03-20 24 take 300 mg by mouth every twelve hours Cefdinir Discontinued 300 MG PO Q12H January 14, 2024 12:00am March 03, 2024 2:52pm ciprofloxacin 750 mg oral tablet (2 sources) Quinolone Antimicrobial Start: 12-17-19 15 take 1 tablet by mouth twice daily ciprofloxacin HCl (CIPRO) 750 mg tablet Take 1 tablet by mouth twice daily. 14 tablet 0 12/17/2014 Active Comment on above: Take 1 tablet by shawanda th twice daily. dexamethasone 6 mg oral tablet (7 sources) Corticosteroid Start: 07-13-20 End: 07-13-20 take 1 tablet by mouth once daily Dexamethasone (Decadron) 6 mg tablet Discontinued 6 MG PO DAILY July 13, 2022 12:00am July 13, 2022 3:33pm escitalopram 20 mg oral tablet (2 sources) Serotonin Reuptake Inhibitor Start: 10-08-20 11 End: 10-09-20 11 take 1 tablet by mouth once daily LEXAPRO 20 MG TABS One tablet by mouth daily ESCITALOPRAM OXALATE [id number] Carmen Vidal esomeprazole 40 mg delayed release oral capsule (2 sources) Proton Pump Inhibitor Start: 10-08-20 End: 10-09-20 11 take 1 tablet by mouth once daily NEXIUM 40 MG CPDR One tablet by mouth daily ESOMEPRAZOLE MAGNESIUM [id number] Dragan Zee MD estradiol 1 mg oral tablet (2 sources) Estrogen Start: 11-23-19 16 End: 04-26-20 16 take 1 tablet by mouth once daily ESTRADIOL 1 MG TABS One tablet by mouth daily ESTRADIOL [id number] Opal Avila 120 actuat formoterol fumarate 0.0048 mg/actuat / glycopyrrolate 0.009 mg/actuat metered dose inhaler (20 sources) beta2-Adrenergic Agonist Start: 10-03-20 End: 05-01-20 23 Glycopyrrolate-Formo terol (Bevespi Aerosphere) 9-4.8 mcg HFA aerosol inhaler Discontinued 2 PUFF INHALATION every day in the morning and in the evening August 24, 2022 1:06pm May 01, 2023 11:41am Isosorbide (4 sources) Nitrate Vasodilator Start: 10-09-20 11 End: 11-23-19 16 take 1 tablet by mouth once daily IMDUR 30 MG [id number] One tablet by mouth daily ISOSORBIDE MONONITRATE [id number] Opal Erick Margarita Start: 10-09-2011 take 1 tablet by shawanda th once daily IMDUR 30 MG [id number] One tablet by mouth daily ISOSORBIDE MONONITRATE [id number] Dragan Zee MD Start: 10-08-2011 End: 10-09-2011 take 1 tablet by mouth once daily ISOSORBIDE MONONITRATE ER 30 MG [id number] One tablet by mouth daily (Imdur) ISOSORBIDE MONONITRATE [id number] Carmen Vidal Labetalol (1 source) beta-Adrenergic Brad Start: 03-04-2025 End: 03-05-2025 labetalol Start: 03/04/25 11:10:00 AM EDT, Dose = 10 mg, = 2 mL, IV Push, q4hr, PRN, Other (see order comments), 03/04/25 11:10:00 EDT Start Date: 03/04/25 Stop Date: 03/05/25 Status: Discontinued Repeat number: 1 levoFLOXacin 750 mg oral tablet (9 sources) Quinolone Antimicrobial Start: 08-01-2018 End: 08-08-2018 take 1 tablet by mouth every twenty-four hours Levofloxacin (Levaquin) 750 mg tablet Discontinued 750 MG PO Q24H 7 August 01, 2018 12:00am August 08, 2018 12:10am Start: 08-01-2016 take 1 tablet by shawanda th once daily LEVAQUIN 500 MG TABS One tablet PO daily LEVOFLOXACIN [id number] Fernando Lundy methocarbamol 750 mg oral tablet (2 sources) Muscle Relaxant Start: 10-08-2011 End: 10-09-2011 ROBAXIN-750 750 MG TABS 2 tablets Q8H METHOCARBAMOL [id number] Dragan Zee MD 24 hr metoprolol succinate 25 mg extended release oral tablet (4 sources) beta-Adrenergic Brad Start: 10-08-2011 End: 11-23-2015 take 1 tablet by mouth once daily METOPROLOL SUCCINATE ER 25 MG [id number] One tablet by mouth daily METOPROLOL SUCCINATE [id number] Opal Avila mirtazapine 15 mg oral tablet (8 sources) Start: 01-26-2014 End: 07-16-2018 take 15 mg by mouth at bedtime Mirtazapine Discontinued 15 MG PO AT BEDTIME January 26, 2014 12:00am July 16, 2018 2:13pm Nebulizer (12 sources) Start: 08-27-2022 End: 08-28-2022 Nebulizer Discontinued 0 .ROUTE .MEDSUPPLY August 27, 2022 11:39am August 28, 2022 12:19pm As directed Start: 08-27-2022 End: 08-28-2022 Nebulizer Discontinued 0 .RO HUSLIA .MEDSUPPLY August 27, 2022 10:39am August 28, 2022 11:19am As directed Start: 08-24-2022 End: 08-27-2022 Nebulizer Discontinued 0 .RO HUSLIA .MEDSUPPLY August 24, 2022 12:00am August 27, 2022 11:40am As directed Start: 08-24-2022 End: 08-27-2022 Nebulizer Discontinued 0 .RO HUSLIA .MEDSUPPLY August 23, 2022 11:00pm August 27, 2022 10:40am As directed nitroglycerin 0.4 mg sublingual tablet (4 sources) Nitrate Vasodilator Start: 10-09-2011 End: 11-23-2015 NITROSTAT 0.4 MG SUBL 1 tablet every 5 minutes x 3 as needed for chest pain NITROGLYCERIN [id number] Dragan Zee MD Start: 10-08-2011 End: 10-09-2011 NITROGLYCERIN 0.4 MG/HR PT24 1 tablet under tongue every 5 min up to 3 X NITROGLYCERIN [id number] Dragan Zee MD Oxygen, Home (Home Oxygen) (8 sources) Start: 01-26-2014 End: 07-16-2018 Oxygen, Home (Home Oxygen) Discontinued 4 LPM NASAL DAILY January 25, 2014 11:00pm July 16, 2018 1:13pm Start: 01-26-2014 End: 07-16-2018 Oxygen, Home (Home Oxygen) D iscontinued 4 LPM NASAL DAILY January 26, 2014 12:00am July 16, 2018 2:13pm OXYGEN-AIR DELIVERY SYSTEMS MISC (2 sources) OXYGEN-AIR DELIV MICHAEL SYSTEMS MISC 4 L daily at bedtime. 0 Active Comment on above: 4 L daily at bedtime . risedronate sodium 35 mg oral tablet (2 sources) Start: End: take 1 tablet by mouth every week ACTONEL 35 MG TABS 1 tablet by mouth weekly RISEDRONATE SODIUM [id number] Carmen Vidal salmeterol (2 sources) beta2-Adrenergic Agonist Start: 015 take 1 puff(s) by inhalation twice daily salmeterol (SEREVENT DISKUS) 50 mcg/dose diskus inhaler Inhale 1 Puff as instructed twice daily. USE ONE(1) INHALATION TWICE DAILY. 1 Inhaler 1 2014 Active Comment on above: Inhale 1 Puff as ins tructed twice daily. USE ONE(1) INHALATION TWICE DAILY. traMADol hydrochloride 50 mg oral tablet (2 sources) Opioid Agonist Start: 011 End: 011 ULTRAM 50 MG TABS 2 tablets Q6H TRAMADOL HCL [id number] Dragan Zee MD 30 actuat umeclidinium 0.0625 mg/actuat dry powder inhaler (17 sources) Anticholinergic Start: 018 End: 020 take 62.5 ug by inhalation every twenty-four hours Umeclidinium (Incruse Ellipta) 62.5 mcg/actuation blister with device Discontinued 1 INH INHALATION Q24H July 29, 2018 1:07pm September 22, 2020 9:02am Start: 07-16-2018 End: 07-29-2018 take 62.5 ug by inhalation every twenty-four hours Umeclidinium (Incruse Ellipta) 62.5 mcg/actuation blister with device Discontinued 1 INH INHALATION Q24H July 15, 2018 11:00pm July 29, 2018 12:08pm Start: 07-16-2018 End: 07-29-2018 take 62.5 ug by inhalation every twenty-four hours Umeclidinium (Incruse Ellipta) 62.5 mcg/actuation blister with device Discontinued 1 INH INHALATION Q24H July 16, 2018 12:00am July 29, 2018 1:08pm Start: 02-26-2017 take 1 puff(s) by in halation once daily INCRUSE ELLIPTA 62.5 MCG/INH AEPB 1 puff daily UMECLIDINIUM BROMIDE [id number] Sangita Michelle CNP Umeclidinium-Vilanterol (8 sources) Anticholinergic, beta2-Adrenergic Agonist Start: 09-22-2020 End: 01-06-2021 Umeclidinium-Vilanterol (Anoro Ellipta) 62.5-25 mcg/actuation blister with device Discontinued 1 INH INHALATION Q24H 60 September 22, 2020 12:00am January 06, 2021 1:28pm Start: 09-22-2020 End: 01-06-2021 Umeclidinium-Vilanterol (Ano ro Ellipta) 62.5-25 mcg/actuation blister with device Discontinued 1 INH INHALATION Q24H 60 September 22, 2020 1:00am January 06, 2021 2:28pm varenicline 1 mg oral tablet (9 sources) Partial Cholinergic Nicotinic Agonist Start: 07-16-2018 End: 09-22-2020 take 1 tablet by mouth twice daily Varenicline (Chantix) 1 mg tablet Discontinued 1 MG PO TWICE A DAY July 16, 2018 12:00am September 22, 2020 8:50am Start: 04-26-2016 take 1 tablet by shawanda twice daily CHANTIX 1 MG TABS One tablet by mouth twice daily VARENICLINE TARTRATE [id number] Opal Avila VITAMIN D2 50,000 UNIT CAPSULE (1 source) Start: 11-23-2015 take 1 tablet by mouth once daily VITAMIN D2 50,000 UNIT CAPSULE One tablet by mouth daily VITAMIN D2 50,000 UNIT CAPSULE Opal E Tullar Problems Active Problems Problem Classification Problem Date Documented Da te Episodic/Chronic Anxiety disorders (11 sources) Other specified anxiety disorders; Translations: [Anxiety] Onset: 06-14-2017 07-30-2018 Chronic Blindness and vision defects (13 sources) Visual disturbance 11-20-2023 Episodic Chronic obstructive pulmonary disease and bronchiectasis (20 sources) Chronic obstructive pulmonary disease with (acute) exacerbation; Translations: [Moderate chronic obstructive pulmonary disease] Onset: 08-16-2016 08-16-2016 Chronic Coronary atherosclerosis and other heart disease (2 sources) Coronary arteriosclerosis; Translations: [Angina pectoris] Onset: 10-08-2011 10-08-2011 Chronic Diseases of white blood cells (3 sources) Leukocytosis; Translations: [Elevated white blood cell count, unspecified] Onset: 11-20-2024 Chronic Disorders of lipid metabolism (2 sources) Hyperlipidemia; Translations: [Mixed hyperlipidemia] Onset: 10-08-2011 10-08-2011 Chronic Hepatitis (2 sources) Hepatitis Onset: 11-04-2008 11-17-2008 Hypertension with complications and secondary hypertension (7 sources) Secondary hypertension 06-26-2024 Chronic Lymphadenitis (14 sources) Mediastinal lymphadenopathy 05-06-2023 Episodic Malaise and fatigue (3 sources) Malaise; Translations: [Other malaise] 06-05-2023 Episodic Menopausal disorders (1 source) Disorder associated with menstruation AND/OR menopause; Translations: [Menopausal and female climacteric states] Chronic Mood disorders (1 source) Depressive disorder; Translations: [Depression, unspecified] Chronic Osteoporosis (7 sources) Osteoporosis 06-26-2024 Chronic Other bone disease and musculoskeletal deformities (3 sources) Osteopenia 01-22-2025 Episodic Other circulatory disease (8 sources) H/O: heart disorder; Translations: [Personal history of other diseases of the circulatory system] 10-25-2021 Episodic Other connective tissue disease (1 source) Pain in limb; Translations: [Pain in unspecified limb] Onset: 05-26-2024 Episodic Other endocrine disorders (15 sources) 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 Other gastrointestinal disorders (1 source) Abnormal feces; Translations: [Other fecal abnormalities] Onset: 03-05-2025 Episodic Other gastrointestinal disorders (2 sources) Constipation, unspecified; Translations: [Constipation, unspecified] Onset: 03-04-2025 Episodic Other gastrointestinal disorders (1 source) Other fecal abnormalities; Translations: [Other fecal abnormalities] Onset: 03-04-2025 Episodic Other infections; including parasitic (13 sources) History of hepatitis C 11-20-2023 Episodic Other liver diseases (1 source) Non-alcoholic fatty liver 04-20-2025 Chronic Other lower respiratory disease (15 sources) Interstitial lung disease 08-15-2014 Chronic Other lower respiratory disease (8 sources) Nodule of lung; Translations: [Solitary pulmonary nodule] 06-15-2021 Episodic Other lower respiratory disease (11 sources) History of chronic obstructive airway disease; Translations: [Personal history of other diseases of the respiratory system] 10-25-2021 Episodic Other lower respiratory disease (15 sources) Multiple nodules of lung 12-15-2014 Episodic Other nervous system disorders (8 sources) Chronic pain; Translations: [Other chronic pain] 10-25-2021 Chronic Other nervous system disorders (16 sources) Metabolic encephalopathy; Translations: [Metabolic encephalopathy] Onset: 05-30-2023 05-30-2023 Chronic Other nervous system disorders (13 sources) Peripheral nerve disease 10-10-2023 Chronic Other nervous system disorders (2 sources) Polyneuropathy, unspecified; Translations: [Polyneuropathy, unspecified] Onset: 02-18-2024 Chronic Other nervous system disorders (2 sources) Disorder of brain; Translations: [Encephalopathy, unspecified] Onset: 03-04-2025 Chronic Other nervous system disorders (2 sources) Encephalopathy, unspecified; Translations: [Encephalopathy, unspecified] Onset: 03-04-2025 Chronic Other nervous system disorders (1 source) Involuntary movement; Translations: [Other abnormal involuntary movements] Onset: 03-04-2025 Episodic Other nervous system disorders (1 source) Other abnormal involuntary movements; Translations: [Other abnormal involuntary movements] Onset: 03-04-2025 Episodic Peripheral and visceral atherosclerosis (2 sources) Atherosclerosis of artery ; Translations: [Atherosclerosis of other arteries] Onset: 03-04-2025 Chronic Pneumonia (15 sources) Pneumonia, unspecified organism; Translations: [Mycoplasma pneumonia] Onset: 06-14-2017 05-03-2023 Episodic Poisoning by other medications and drugs (4 sources) Poisoning by unspecified drugs, medicaments and biological substances, accidental (unintentional), initial encounter; Translations: [Overdose] Onset: 01-24-2024 01-14-2024 Episodic Residual codes; unclassified (8 sources) Harmful pattern of use of nicotine; Translations: [Tobacco use] 09-22-2020 Episodic Residual codes; unclassified (1 source) Tobacco use; Translations: [Tobacco use disorder] 05-01-2023 Episodic Residual codes; unclassified (4 sources) Past history of procedure 08-26-2024 Episodic Respiratory failure; insufficiency; arrest (adult) (14 sources) Dependence on supplemental oxygen 11-20-2023 Chronic Rheumatoid arthritis and related disease (1 source) Rheumatoid arthritis, unspecified; Translations: [Rheumatoid arthritis, unspecified] Onset: 06-14-2017 Chronic Septicemia (3 sources) Sepsis, unspecified organism; Translations: [Sepsis, unspecified organism] Onset: 06-14-2017 Spondylosis; intervertebral disc disorders; other back problems (18 sources) Lumbar radiculopathy; Translations: [Radiculopathy, lumbar region] Onset: 06-01-2024 01-14-2024 Episodic Sprains and strains (8 sources) Sprain of wrist; Translations: [Unspecified sprain of right wrist, initial encounter] 01-27-2014 Episodic Substance-related disorders (17 sources) Tobacco dependence syndrome; Translations: [History of drug abuse] Onset: 04-26-2016 04-26-2016 Chronic Thyroid disorders (20 sources) Multinodular goiter; Translations: [Nontoxic multinodular goiter] Onset: 02-18-2024 09-13-2020 Chronic Unclassified (1 source) Long-term drug therapy; Translations: [Long-term (current) use of other medications] Onset: 10-15-2011 10-15-2011 Unclassified (11 sources) Breast structure (body structure) 12-15-2014 Comment on above: NODULE Unclassified (2 sources) RVAT with biopsy of right lung Dr. Rebolledo Onset: 11-17-2008 11-17-2008 Unclassified (13 sources) History of SARS-CoV-2 11-20-2023 Unclassified (13 sources) Non-alcoholic fatty liver disease 11-20-2023 Past or Other Problems Problem Classification Problem Date Documented Date Episodic/Chronic Cardiac dysrhythmias (1 source) Palpitations; Translations: [Palpitations] Onset: 10-08-2011 10-08-2011 Episodic Fluid and electrolyte disorders (2 sources) Acidosis; Translations: [Hypo-osmolality and or hyponatremia] Onset: 06-14-2017 Episodic Genitourinary symptoms and ill-defined conditions (2 sources) Unspecified symptoms and signs involving the genitourinary system; Translations: [Unspecified symptoms and signs involving the genitourinary system] Onset: 08-14-2024 Episodic Nonspecific chest pain (1 source) Precordial pain; Translations: [Precordial pain] Onset: 10-08-2011 10-08-2011 Episodic Other connective tissue disease (2 sources) Repeated falls; Translations: [Repeated falls] Onset: 02-18-2024 Episodic Other lower respiratory disease (1 source) Dyspnea; Translations: [Shortness of breath] Onset: 10-09-2011 10-09-2011 Episodic Other lower respiratory disease (1 source) Shortness of breath; Translations: [Shortness of breath] Onset: 06-01-2023 Episodic Other non-traumatic joint disorders (2 sources) Multiple joint pain; Translations: [Pain in unspecified joint] Onset: 08-10-2003 02-28-2004 Episodic Other screening for suspected conditions (not mental disorders or infectious disease) (2 sources) Other specified abnormal findings of blood chemistry; Translations: [Other specified abnormal findings of blood chemistry] Onset: 11-20-2024 Episodic Poisoning by psychotropic agents (1 source) Poisoning by amphetamines, accidental (unintentional), initial encounter; Translations: [Accidental poisoning caused by amphetamine and amphetamine derivative] Episodic Residual codes; unclassified (1 source) Tobacco user; Translations: [Tobacco use] Onset: 05-30-2023 Episodic Residual codes; unclassified (1 source) Altered mental status; Translations: [Altered mental status, unspecified] Episodic Septicemia (1 source) Severe sepsis without septic shock; Translations: [Severe sepsis without septic shock] Onset: 06-14-2017 Episodic Results Test Name Value Interpretation Reference Range [facility] HCV Test Info Comment Normal [facility] Comment on above: Result Comment: The quantitative range of this assay is 15 IU/mL to 100 million IU/mL. Performed At: [address] [id number] Aleksandr Sampson MD Ph:[phone] Performed By: #### G , JACOBO, RACHANA, SUSY, JYOTHI, CAROL ANN, ACETA, PRO, CMP, ANEU, APTT, ALC, CBC, VBG #### [id number] [place], [place] [address] Hep C Qn Not detected Normal [facility] Comment on above: Performed By: #### G , JACOBO, RACHANA, SUSY, JYOTHI, CAROL ANN, ACETA, PRO, CMP, ANEU, APTT, ALC, CBC, VBG #### [address] [address] .GFRon 04-20-2025 Estimated Glomerular Filtration Rate 102 ml/min/1.73sqm Normal [facility] Comment on above: Result Comment: Stages of Chronic Kidney Disease (CKD) Stage Description eGFR(ml/min/1.73 sq.m.) CKD 1 Normal kidney function or >=90 normal kindney function with possible kidney damage (ex. Proteinuria) CKD 2 Kidney damage with mild loss 60-89 of kidney function CKD 3a Mild to moderate loss of kidney 45-59 function CKD 3b Moderate to severe loss of 30-44 of kindey function CKD 4 Severe loss of kidney function 15-29 CKD 5 Kidney failure <15 Note: (go live 2024) the eGFR calculation was updated to the 2020 CKD-EPI creatinine equation without a race factor to calculate the eGFR results. Performed By: #### G , TROPHS, RACHANA, AMNithin, MDYu, CAROL ANN, ACETA, PRO, CMP, ANEU, APTT, ALC, CBC, VBG #### [address] [address] A1Con 04-20-2025 Glucose [Mass/Vol] 114 mg/dL Normal [facility] Comment on above: Result Comment: Chasity mated Average Glucose calculated by equation ((28.7xA1C)-46.7) Estimated average glucose (eAG) is a calculated value from Hemoglobin A1C and is architectural representative of the average blood glucose level in the last 2-3 month period. Normal range: less than 114 mg/dL Performed By: #### G , JACOBO, RACHANA, SUSY, W, CAROL ANN, ACETA, PRO, CMP, ANEU, APTT, ALC, CBC, VBG #### [address] [address] HbA1c (Bld) [Mass fraction] 5.6 % Normal 4.3-6.4 [facility] Comment on above: Performed By: #### G , JACOBO, RACHANA, SUSY, JYOTHI, CAROL ANN, ACETA, PRO, CMP, ANEU, APTT, ALC, CBC, VBG #### [address] [address] B12on 04-20-2025 Cobalamin (Vitamin B12) [Mass/Vol] 340 pg/mL Normal 211-911 [facility] Comment on above: Performed By: #### G , JACOBO, RACHANA, SUSY, JYOTHI, CAROL ANN, ACETA, PRO, CMP, ANEU, APTT, ALC, CBC, VBG #### [address] [address] CAIONon 04-20-2025 Calcium Ionized 1.06 mmol/L Low 1.12-1.32 [facility] Comment on above: Performed By: #### G , RACHANA CENTENO, SUSY, JYOTHI, CAROL ANN, ACETA, PRO, CMP, ANEU, APTT, ALC, CBC, VBG #### [address] [address] CMPon 04-20-2025 Albumin Level 3.8 G/dL Normal 3.4-4.8 [facility] Comment on above: Performed By: #### G , JACOBO, RACHANA, SUSY, W, CAROL ANN, ACETA, PRO, CMP, ANEU, APTT, ALC, CBC, VBG #### [address] [address] Albumin/Globulin [Mass ratio] 0.9 {ratio} Low 1.1-2.5 [facility] Comment on above: Performed By: #### G FR, TROPHS, ADIFF, AMM, MDW, CAROL ANN, ACETA, PRO, CMP, ANEU, APTT, ALC, CBC, VBG #### [address] [address] ALP [Catalytic activity/Vol] 129 U/L Normal 40-135 [facility] Comment on above: Performed By: #### G FR, TROPHS, ADIFF, AMM, MDW, CAROL ANN, ACETA, PRO, CMP, ANEU, APTT, ALC, CBC, VBG #### [place] [address] ALT [Catalytic activity/Vol] 19 U/L Normal 14-59 [facility] Comment on above: Performed By: #### G FR, TROPHS, ADYOVANI, AMM, MDW, CAROL ANN, ACETA, PRO, CMP, ANEU, APTT, ALC, CBC, VBG #### [place] [address] AST [Catalytic activity/Vol] 13 U/L Normal 10-40 [facility] Comment on above: Performed By: #### G FR, TROPHS, ADYOVANI, AMM, MDW, CAROL ANN, ACETA, PRO, CMP, ANEU, APTT, ALC, CBC, VBG #### [address] [address] Bili Total 0.2 mg/dL Normal 0.2-1.0 [facility] Comment on above: Result Comment: Use of this assay is not recommended for patients undergoing treatment with eltrombopag due to the potential for falsely elevated results. Performed By: #### G FR, TROPHS, ADIFF, AMM, MDW, CAROL ANN, ACETA, PRO, CMP, ANEU, APTT, ALC, CBC, VBG #### [address] [address] BUN/Creatinine Ratio 12 ratio Normal 7-27 [facility] Comment on above: Performed By: #### G FR, TROPHS, ADIFF, AMM, MDW, CAROL ANN, ACETA, PRO, CMP, ANEU, APTT, ALC, CBC, VBG #### [address] [address] Calcium [Mass/Vol] 9.1 mg/dL Normal 8.4-10.2 [facility] Comment on above: Performed By: #### G FR, TROPHS, ADIFF, AMM, MDW, CAROL ANN, ACETA, PRO, CMP, ANEU, APTT, ALC, CBC, VBG #### [address] [address] Chloride [Moles/Vol] 103 mmol/L Normal 98-107 [facility] Comment on above: Performed By: #### G FR, TROPHS, ADIFF, AMM, MDW, CAROL ANN, ACETA, PRO, CMP, ANEU, APTT, ALC, CBC, VBG #### [place] [address] CO2 [Moles/Vol] 30 mmol/L Normal 23-31 [facility] Comment on above: Performed By: #### G FR, TROPHS, ADIFF, AMM, MDW, CAROL ANN, ACETA, PRO, CMP, ANEU, APTT, ALC, CBC, VBG #### [address] [address] Creatinine [Mass/Vol] 0.57 mg/dL Normal 0.51-0.95 [facility] Comment on above: Performed By: #### G FR, TROPHS, ADIFF, AMM, MDW, CAROL ANN, ACETA, PRO, CMP, ANEU, APTT, ALC, CBC, VBG #### [address] [address] Electrolyte Balance 9.0 mEq/L Normal 4.0-15.0 [facility] Comment on above: Performed By: #### G FR, TROPHS, ADIFF, AMM, MDW, CAROL ANN, ACETA, PRO, CMP, ANEU, APTT, ALC, CBC, VBG #### [address] [address] Globulin 4.1 G/dL Normal 2.7-4.4 [facility] Comment on above: Performed By: #### G , TROPHS, ADYOVANI, AMNithin, MDW, CAROL ANN, ACETA, PRO, CMP, ANEU, APTT, ALC, CBC, VBG #### [address] [address] Glucose [Mass/Vol] 106 mg/dL Normal 80-115 [facility] Comment on above: Performed By: #### G FR, TROPHS, ADIFF, AMM, MDW, CAROL ANN, ACETA, PRO, CMP, ANEU, APTT, ALC, CBC, VBG #### [address] [address] Potassium [Moles/Vol] 3.8 mmol/L Normal 3.5-5.1 [facility] Comment on above: Performed By: #### G , TROPHS, ADYOVANI, AMNithin, W, CAROL ANN, ACETA, PRO, CMP, ANEU, APTT, ALC, CBC, VBG #### [address] [address] Sodium [Moles/Vol] 142 mmol/L Normal 136-145 [facility] Comment on above: Performed By: #### G , TROPHS, ADYOVANI, AMNithin, MDW, CAROL ANN, ACETA, PRO, CMP, ANEU, APTT, ALC, CBC, VBG #### [address] [address] Total Protein 7.9 G/dL Normal 6.4-8.2 [facility] Comment on above: Performed By: #### G , TROPHS, ADYOVANI, AMNithin, MDW, CAROL ANN, ACETA, PRO, CMP, ANEU, APTT, ALC, CBC, VBG #### [address] [address] Urea nitrogen [Mass/Vol] 7 mg/dL Normal 7-18 [facility] Comment on above: Performed By: #### G , TROPHS, ADYOVANI, AMNithin, MDW, CAROL ANN, ACETA, PRO, CMP, ANEU, APTT, ALC, CBC, VBG #### [place] [id number] [place] 04-20-2025 Ferritin [Mass/Vol] 40.0 ng/mL Normal 8.0-252.0 [facility] Comment on above: Performed By: #### G FR, TROPHS, RACHANA, SUSY, JYOTHI, CAROL ANN, ACETA, PRO, CMP, ANEU, APTT, ALC, CBC, VBG #### [place] [address] FESon 04-20-2025 Iron [Mass/Vol] 49 ug/dL Low 50-170 [facility] Comment on above: Performed By: #### G FR, TROPHS, RACHANA, SUSY, JYOTHI, CAROL ANN, ACETA, PRO, CMP, ANEU, APTT, ALC, CBC, VBG #### [place] [address] Iron Sat 15 % Normal [facility] Comment on above: Performed By: #### G FR, TROPHS, RACHANA, SUSY, JYOTHI, CAROL ANN, ACETA, PRO, CMP, ANEU, APTT, ALC, CBC, VBG #### [place] [address] TIBC 333 mcg/dL Normal 250-450 [facility] Comment on above: Performed By: #### G FR, TROPHS, RACHANA, SUSY, JYOTHI, CAROL ANN, ACETA, PRO, CMP, ANEU, APTT, ALC, CBC, VBG #### [place] [address] FOLon 04-20-2025 Folate 9.98 ng/mL Normal 5.38-24.00 [facility] Comment on above: Performed By: #### G FR, TROPHS, RACHANA, SUSY, JYOTHI, CAROL ANN, ACETA, PRO, CMP, ANEU, APTT, ALC, CBC, VBG #### [place] [address] LABORATORYOrdered By: SYSTEM SYSTEM on 04-20-2025 25-hydroxyvitamin D3 [Mass/Vol] 7.8 ng/mL Invalid Interpretation Code AO ADM SS Comment on above: Interpretive Data: I nterpretive Values Based on Total 25(OH) Vitamin D: Deficient <20 ng/mL Insufficient 20 - <30 ng/mL Sufficient 30-100 ng/mL Albumin BCP dye [Mass/Vol] 3.8 G/dL Normal 3.4 - 4.8 G/dL AO ADM SS Albumin/Globulin [Mass ratio] 0.9 {ratio} Low 1.1 - 2.5 ratio AO ADM SS ALP [Catalytic activity/Vol] 129 U/L Normal 40 - 135 U/L AO ADM SS ALT With P-5'-P [Catalytic activity/Vol] 19 U/L Normal 14 - 59 U/L AO ADM SS AST With P-5'-P [Catalytic activity/Vol] 13 U/L Normal 10 - 40 U/L AO ADM SS Bilirubin [Mass/Vol] 0.2 mg/dL Normal 0.2 - 1 .0 mg/dL AO ADM SS Comment on above: Interpretive Data: U se of this assay is not recommended for patients undergoing treatment with eltrombopag due to the potential for falsely elevated results. Calcium [Mass/Vol] 9.1 mg/dL Normal 8.4 - 10. 2 mg/dL AO ADM SS Chloride [Moles/Vol] 103 mmol/L Normal 98 - 10 7 mmol/L AO ADM SS CO2 [Moles/Vol] 30 mmol/L Normal 23 - 31 mmol/L AO ADM SS Cobalamin (Vitamin B12) [Mass/Vol] 340 pg/mL Normal 211 - 911 pg/mL AH ADM SS Creatinine [Mass/Vol] 0.57 mg/dL Normal 0.51 - 0.95 mg/dL AO ADM SS Electrolyte Balance 9.0 mEq/L Normal 4.0 - 15 .0 mEq/L AO ADM SS Estimated Glomerular Filtration Rate 102 ml/min/1.73sqm Invalid Interpretation Code AO Chemistry S Comment on above: Interpretive Data: Stages of Chronic Kidney Disease (CKD) Stage Description eGFR(ml/min/1.73 sq.m.) CKD 1 Normal kidney function or >=90 normal kindney function with possible kidney damage (ex. Proteinuria) CKD 2 Kidney damage with mild loss 60-89 of kidney function CKD 3a Mild to moderate loss of kidney 45-59 function CKD 3b Moderate to severe loss of 30-44 of kindey function CKD 4 Severe loss of kidney function 15-29 CKD 5 Kidney failure <15 Note: (go live 2024) the eGFR calculation was updated to the 2020 CKD-EPI creatinine equation without a race factor to calculate the eGFR results. Ferritin [Mass/Vol] 40.0 ng/mL Normal 8.0 - 25 2.0 ng/mL AO ADM SS Folate [Mass/Vol] 9.98 ng/mL Normal 5.38 - 24.00 ng/mL AH ADM SS Globulin 4.1 G/dL Normal 2.7 - 4.4 G/dL AO ADM SS Glucose [Mass/Vol] 114 mg/dL Invalid Interpretation Code AO Chemistry S Comment on above: Interpretive Data: E stimated average glucose (eAG) is a calculated value from Hemoglobin A1C and is architectural representative of the average blood glucose level in the last 2-3 month period. Normal range: less than 114 mg/dL Glucose [Mass/Vol] 106 mg/dL Normal 80 - 115 mg/dL AO ADM SS HbA1c (Bld) [Mass fraction] 5.6 % Normal 4.3 - 6.4 % AO ADM SS Iron [Mass/Vol] 49 ug/dL Low 50 - 170 mcg/dL AO ADM SS Iron binding capacity [Mass/Vol] 333 mcg/dL Normal 250 - 450 mcg/dL AO ADM SS Iron Sat 15 % Invalid Interpretation Code AO ADM SS Magnesium [Mass/Vol] 2.0 mg/dL Normal 1.8 - 2 .4 mg/dL AO ADM SS Potassium [Moles/Vol] 3.8 mmol/L Normal 3.5 - 5.1 mmol/L AO ADM SS Protein [Mass/Vol] 7.9 G/dL Normal 6.4 - 8.2 G/dL AO ADM SS Sodium [Moles/Vol] 142 mmol/L Normal 136 - 145 mmol/L AO ADM SS Urea nitrogen [Mass/Vol] 7 mg/dL Normal 7 - 18 mg/dL AO ADM SS Urea nitrogen/Creatinine [Mass ratio] 12 ratio Normal 7 - 27 ratio AO ADM SS Uric Acid Lvl 5.2 mg/dL Normal 2.6 - 6.2 mg/dL AO ADM SS LABORATORYOrdered By: Zackery Luna on 04-20-2025 Calcium Ionized 1.06 mmol/L Low 1.12 - 1.32 mmol/L AO Rapid Comm SS MGon 04-20-2025 Magnesium [Mass/Vol] 2.0 mg/dL Normal 1.8-2.4 [facility] Comment on above: Performed By: #### G , JACOBO, RACHANA, SUSY, JYOTHI, CAROL ANN, ACETA, PRO, CMP, ANEU, APTT, ALC, CBC, VBG #### [address] [address] URICon 04-20-2025 Uric Acid Lvl 5.2 mg/dL Normal 2.6-6.2 [facility] Comment on above: Performed By: #### G , JACOBO, RACHANA, SUSY, JYOTHI, CAROL ANN, ACETA, PRO, CMP, ANEU, APTT, ALC, CBC, VBG #### [address] [address] VIDHon 04-20-2025 Vit. D 25-Hydroxy 7.8 ng/mL Normal [facility] Comment on above: Result Comment: Inte rpretive Values Based on Total 25(OH) Vitamin D: Deficient <20 ng/mL Insufficient 20 - <30 ng/mL Sufficient 30-100 ng/mL Performed By: #### G , JACOBO, RACHANA, SUSY, JYOTHI, CAROL ANN, ACETA, PRO, CMP, ANEU, APTT, ALC, CBC, VBG #### [address] [address] .Auto Diffon 03-05-2025 Basophil, Absolute 0.0 10 3/mcL Normal 0.0-0.3 [facility] Comment on above: Performed By: #### A DIFF, ANEU, MG, BMP, GFR, CBC, PHOS ####[address] [address] Eosinophil, Absolute 0.1 10 3/mcL Normal 0.0-0.7 [facility] Comment on above: Performed By: #### A DIFF, ANEU, MG, BMP, GFR, CBC, PHOS ####[address] [address] Lymphocyte, Absolute 3.4 10 3/mcL Normal 0.9-4.3 [facility] Comment on above: Performed By: #### A DIFF, ANEU, MG, BMP, GFR, CBC, PHOS ####[address] [address] Monocyte, Absolute 1.0 10 3/mcL Normal 0.1-1.4 [facility] Comment on above: Performed By: #### A DIFF, ANEU, MG, BMP, GFR, CBC, PHOS ####[address] [address] .Auto DiffOrdered By: Yakify on 03-05-2025 Basophils/100 WBC (Bld) 0.4 % Normal 0.0-2.5 A H Workflow SS Comment on above: Performed By: #### A DIFF, ANEU, MG, BMP, GFR, CBC, PHOS ####[address] [address] Eosinophils/100 WBC (Bld) 1.0 % Normal 0.0-6.0 AH Workflow SS Comment on above: Performed By: #### A DIFF, ANEU, MG, BMP, GFR, CBC, PHOS ####[address] [address] Lymphocytes/100 WBC (Bld) 31.5 % Normal 20.0-40.0 AH Workflow SS Comment on above: Performed By: #### A DIFF, ANEU, MG, BMP, GFR, CBC, PHOS ####[address] [address] Monocytes/100 WBC (Bld) 9.7 % Normal 2.0-13.0 A H Workflow SS Comment on above: Performed By: #### A DIFF, ANEU, MG, BMP, GFR, CBC, PHOS ####[address] [address] Neutrophils/100 WBC (Bld) 57.4 % Normal 50.0-75.0 AH Workflow SS Comment on above: Performed By: #### A DIFF, ANEU, MG, BMP, GFR, CBC, PHOS ####[address] [address] .GFROrdered By: SYSTEM M-Factor on 03-05-2025 Estimated Glomerular Filtration Rate 101 ml/min/1.73sqm Normal AH ADM SS Comment on above: Interpretive Data: Stages of Chronic Kidney Disease (CKD) Stage Description eGFR(ml/min/1.73 sq.m.) CKD 1 Normal kidney function or >=90 normal kindney function with possible kidney damage (ex. Proteinuria) CKD 2 Kidney damage with mild loss 60-89 of kidney function CKD 3a Mild to moderate loss of kidney 45-59 function CKD 3b Moderate to severe loss of 30-44 of kindey function CKD 4 Severe loss of kidney function 15-29 CKD 5 Kidney failure <15 Note: ( live 12/08/2024) the eGFR calculation was updated to the 2020 CKD-EPI creatinine equation without a race factor to calculate the eGFR results. Result Comment: Stages of Chronic Kidney Disease (CKD) Stage Description eGFR(ml/min/1.73 sq.m.) CKD 1 Normal kidney function or >=90 normal kindney function with possible kidney damage (ex. Proteinuria) CKD 2 Kidney damage with mild loss 60-89 of kidney function CKD 3a Mild to moderate loss of kidney 45-59 function CKD 3b Moderate to severe loss of 30-44 of kindey function CKD 4 Severe loss of kidney function 15-29 CKD 5 Kidney failure <15 Note: ( live 12/08/2024) the eGFR calculation was updated to the 2020 CKD-EPI creatinine equation without a race factor to calculate the eGFR results. Performed By: #### A DIFF, ANEU, MG, BMP, GFR, CBC, PHOS ####[place] [address] .NEUABSon 03-05-2025 Neutrophil, Absolute 6.1 10 3/mcL Normal 2.3-8.1 [facility] Comment on above: Performed By: #### A DIFF, ANEU, MG, BMP, GFR, CBC, PHOS ####[place] [address] BMPon 03-05-2025 BUN/Creatinine Ratio 13.3 ratio Normal 10.0-22.0 [facility] Comment on above: Performed By: #### A DIFF, ANEU, MG, BMP, GFR, CBC, PHOS ####[place] [id number] BMPOrdered By: SYSTEM SYSTEM on 03-05-2025 Calcium [Mass/Vol] 8.4 mg/dL Low 8.7-10.4 AH ADM SS Comment on above: Performed By: #### A DIFF, ANEU, MG, BMP, GFR, CBC, PHOS ####[place] [address] Chloride [Moles/Vol] 113 mmol/L High 98-110 AH A DM SS Comment on above: Performed By: #### A DIFF, ANEU, MG, BMP, GFR, CBC, PHOS ####[place] [address] CO2 [Moles/Vol] 21 mmol/L Low 22-32 AH ADM SS Comment on above: Performed By: #### A DIFF, ANEU, MG, BMP, GFR, CBC, PHOS ####[place] [address] Creatinine [Mass/Vol] 0.60 mg/dL Normal 0.50-1.20 AH ADM SS Comment on above: Interpretive Data: T esting performed on [employer] CH analyzer using enzymatic creatinine methodology. Result Comment: Test ing performed on [employer] CH analyzer using enzymatic creatinine methodology. Performed By: #### A DIFF, ANEU, MG, BMP, GFR, CBC, PHOS ####[place] [address] Electrolyte Balance 10.0 mEq/L Normal 4.0-15.0 AH AD M SS Comment on above: Performed By: #### A DIFF, ANEU, MG, BMP, GFR, CBC, PHOS ####[place] [address] Glucose [Mass/Vol] 115 mg/dL Normal 82-115 AH ADM SS Comment on above: Performed By: #### A DIFF, ANEU, MG, BMP, GFR, CBC, PHOS ####[place] [address] Potassium [Moles/Vol] 2.9 mmol/L Low 3.5-5.0 AH ADM SS Comment on above: Performed By: #### A DIFF, ANEU, MG, BMP, GFR, CBC, PHOS ####[place] [address] Sodium [Moles/Vol] 144 mmol/L Normal 136-145 AH ADM SS Comment on above: Performed By: #### A DIFF, ANEU, MG, BMP, GFR, CBC, PHOS ####[place] [address] Urea nitrogen [Mass/Vol] 8.0 mg/dL Normal 8.0-22.0 AH ADM SS Comment on above: Performed By: #### A DIFF, ANEU, MG, BMP, GFR, CBC, PHOS ####[place] [address] CBCOrdered By: SYSTEM SYSTEM on 03-05-2025 Erythrocyte distribution width (RBC) [Ratio] 14.5 % Normal 11.5-15.5 AH Workflow SS Comment on above: Performed By: #### A DIFF, ANEU, MG, BMP, GFR, CBC, PHOS ####[place] [address] Hematocrit (Bld) [Volume fraction] 40.2 % Normal 34.0-46.0 AH Workflow SS Comment on above: Performed By: #### A DIFF, ANEU, MG, BMP, GFR, CBC, PHOS ####[place] [address] MCH (RBC) [Entitic mass] 31.9 pg Normal 27.0-33.0 AH Workflow SS Comment on above: Performed By: #### A DIFF, ANEU, MG, BMP, GFR, CBC, PHOS ####[place] [address] MCHC 34.8 G/dL Normal 32.0-36.0 AH Workflow SS Comment on above: Performed By: #### A DIFF, ANEU, MG, BMP, GFR, CBC, PHOS ####[place] [address] MCV (RBC) [Entitic vol] 91.8 fL Normal 80.0-99.0 A H Workflow SS Comment on above: Performed By: #### A DIFF, ANEU, MG, BMP, GFR, CBC, PHOS ####[place] [address] Platelet mean volume (Bld) [Entitic vol] 8.4 fL Normal 6.6-10.5 AH Workflow SS Comment on above: Performed By: #### A DIFF, ANEU, MG, BMP, GFR, CBC, PHOS ####[place] [address] CBCon 03-05-2025 Hgb 14.0 G/dL Normal 12.0-16.0 [facility] Comment on above: Performed By: #### A DIFF, ANEU, MG, BMP, GFR, CBC, PHOS ####[place] [address] Platelet 199 10 3/mcL Normal 150-450 [facility] Comment on above: Performed By: #### A DIFF, ANEU, MG, BMP, GFR, CBC, PHOS ####[place] [address] RBC 4.38 10 6/mcL Normal 4.10-5.30 [facility] Comment on above: Performed By: #### A DIFF, ANEU, MG, BMP, GFR, CBC, PHOS ####[place] [address] WBC 10.7 10 3/mcL Normal 4.5-10.8 [facility] Comment on above: Performed By: #### A DIFF, ANEU, MG, BMP, GFR, CBC, PHOS ####[place] [address] LABORATORYOrdered By: SYSTEM SYSTEM on 03-05-2025 Basophils (Bld) [#/Vol] 0.0 103/mcL Normal 0.0 - 0.3 10^3/mcL AH Workflow SS Eosinophils (Bld) [#/Vol] 0.1 103/mcL Normal 0.0 - 0.7 10^3/mcL AH Workflow SS Hemoglobin (Bld) [Mass/Vol] 14.0 G/dL Normal 12.0 - 16.0 G/dL AH Workflow SS Lymphocytes (Bld) [#/Vol] 3.4 103/mcL Normal 0.9 - 4.3 10^3/mcL AH Workflow SS Monocytes (Bld) [#/Vol] 1.0 103/mcL Normal 0.1 - 1.4 10^3/mcL Workflow SS Neutrophils (Bld) [#/Vol] 6.1 103/mcL Normal 2.3 - 8.1 10^3/mcL Workflow SS Platelets (Bld) [#/Vol] 199 103/mcL Normal 150 - 450 10^3/mcL Workflow SS RBC (Bld) [#/Vol] 4.38 106/mcL Normal 4.10 - 5.3 0 10^6/mcL Workflow SS Urea nitrogen/Creatinine [Mass ratio] 13.3 ratio Normal 10.0 - 22.0 ratio AH ADM SS WBC (Bld) [#/Vol] 10.7 103/mcL Normal 4.5 - 10.8 10^3/mcL Workflow SS MGOrdered By: SYSTEM SYSTEM on 03-05-2025 Magnesium [Mass/Vol] 1.9 mg/dL Normal 1.6-2.4 A DM SS Comment on above: Performed By: #### A DIFF, ANEU, MG, BMP, GFR, CBC, PHOS ####[address] [address] PHOSOrdered By: SYSTEM M-Factor on 03-05-2025 Phosphate [Mass/Vol] 3.0 mg/dL Normal 2.4-5.1 A DM SS Comment on above: Interpretive Data: * *Note - New Reference Range in effect 20 Result Comment: No te - New Reference Range in effect 20 Performed By: #### A DIFF, ANEU, MG, BMP, GFR, CBC, PHOS ####[address] [address] .Auto Diffon 03-04-2025 Basophil, Absolute 0.1 10 3/mcL Normal 0.0-0.3 [facility] Comment on above: Performed By: #### G FR, TROPHS, RACHANA, AMM, MDW, CAROL ANN, ACETA, PRO, CMP, ANEU, APTT, ALC, CBC, VBG #### [facility] [address] [place], [place] [address] Basophils/100 WBC (Bld) 0.7 % Normal 0.0-2.5 [facility] Comment on above: Performed By: #### G FR, TROPHS, ADIFF, AMM, MDW, CAROL ANN, ACETA, PRO, CMP, ANEU, APTT, ALC, CBC, VBG #### [address] [address] Eosinophil, Absolute 0.0 10 3/mcL Normal 0.0-0.7 [facility] Comment on above: Performed By: #### G FR, TROPHS, ADIFF, AMM, MDW, CAROL ANN, ACETA, PRO, CMP, ANEU, APTT, ALC, CBC, VBG #### [address] [address] Eosinophils/100 WBC (Bld) 0.4 % Normal 0.0-6.0 [facility] Comment on above: Performed By: #### G FR, TROPHS, ADIFF, AMM, MDW, CAROL ANN, ACETA, PRO, CMP, ANEU, APTT, ALC, CBC, VBG #### [address] [address] Lymphocyte, Absolute 2.1 10 3/mcL Normal 0.9-4.3 [facility] Comment on above: Performed By: #### G FR, TROPHS, ADIFF, AMM, MDW, CAROL ANN, ACETA, PRO, CMP, ANEU, APTT, ALC, CBC, VBG #### [address] [address] Lymphocytes/100 WBC (Bld) 20.1 % Normal 20.0-40.0 [facility] Comment on above: Performed By: #### G FR, TROPHS, ADIFF, AMM, MDW, CAROL ANN, ACETA, PRO, CMP, ANEU, APTT, ALC, CBC, VBG #### [address] [address] Monocyte, Absolute 0.8 10 3/mcL Normal 0.1-1.4 [facility] Comment on above: Performed By: #### G FR, TROPHS, ADIFF, AMM, MDW, CAROL ANN, ACETA, PRO, CMP, ANEU, APTT, ALC, CBC, VBG #### [address] [address] Monocytes/100 WBC (Bld) 7.6 % Normal 2.0-13.0 [facility] Comment on above: Performed By: #### G FR, TROPHS, ADIFF, AMM, MDW, CAROL ANN, ACETA, PRO, CMP, ANEU, APTT, ALC, CBC, VBG #### [place] [address] [place], [place] [address] Neutrophils/100 WBC (Bld) 71.2 % Normal 50.0-75.0 [facility] Comment on above: Performed By: #### G FR, TROPHS, ADIFF, AMM, MDW, CAROL ANN, ACETA, PRO, CMP, ANEU, APTT, ALC, CBC, VBG #### [address] [address] .GFRon 03-04-2025 Estimated Glomerular Filtration Rate 98 ml/min/1.73sqm Normal [facility] Comment on above: Result Comment: Stages of Chronic Kidney Disease (CKD) Stage Description eGFR(ml/min/1.73 sq.m.) CKD 1 Normal kidney function or >=90 normal kindney function with possible kidney damage (ex. Proteinuria) CKD 2 Kidney damage with mild loss 60-89 of kidney function CKD 3a Mild to moderate loss of kidney 45-59 function CKD 3b Moderate to severe loss of 30-44 of kindey function CKD 4 Severe loss of kidney function 15-29 CKD 5 Kidney failure <15 Note: (go live 2024) the eGFR calculation was updated to the 2020 CKD-EPI creatinine equation without a race factor to calculate the eGFR results. Performed By: #### G FR, TROPHS, ADIFF, AMM, MDW, CAROL ANN, ACETA, PRO, CMP, ANEU, APTT, ALC, CBC, VBG ####[address] [address] .MDWon 03-04-2025 Monocyte Distribution Width 15.70 Normal 0.00-20.00 [facility] Comment on above: Result Comment: For ED adult patients suspected of sepsis, MDW<=20.0 does not rule out sepsis or risk of sepsis Performed By: #### G FR, TROPHS, RACHANA, AMNithin, MDW, CAROL ANN, ACETA, PRO, CMP, ANEU, APTT, ALC, CBC, VBG #### [address] [address] .NEUABSon 03-04-2025 Neutrophil, Absolute 7.4 10 3/mcL Normal 2.3-8.1 [facility] Comment on above: Performed By: #### G , TROPHS, RACHANA, AMNithin, MDW, CAROL ANN, ACETA, PRO, CMP, ANEU, APTT, ALC, CBC, VBG #### [place] [address] ACETAon 03-04-2025 Acetaminophen Lvl <0.0 Low 10.0-30.0 [facility] Comment on above: Performed By: #### G , JACOBO, RACHANA, AMNithin, W, CAROL ANN, ACETA, PRO, CMP, ANEU, APTT, ALC, CBC, VBG ####[place] [address] Lorelei 03-04-2025 Ethanol Level <3 Normal [facility] Comment on above: Performed By: #### G , CATRINAS, RACHANA, AMNithin, MDW, CAROL ANN, ACETA, PRO, CMP, ANEU, APTT, ALC, CBC, VBG #### [place] [address] Agustina 03-04-2025 Ammonia (P) [Mass/Vol] ug/dL Low 11-32 [facility] Comment on above: Performed By: #### G , TROPHS, RACHANA, AMNithin, W, CAROL ANN, ACETA, PRO, CMP, ANEU, APTT, ALC, CBC, VBG ####[place] [address] APTTon 03-04-2025 aPTT Coag (Bld) [Time] 29.2 s Normal 25.0-35.0 [facility] Comment on above: Result Comment: For Heparin anticoagulation therapy, the recommended therapeutic range is: 45.4-75.9 seconds. Patients on heparin therapy may have an extreme result. Performed By: #### G , JACOBO, RACHANA, SUSY, JYOTHI, CAROL ANN, ACETA, PRO, CMP, ANEU, APTT, ALC, CBC, VBG #### [address] [address] CAIONon 03-04-2025 Calcium Ionized 1.08 mmol/L Low 1.12-1.32 [facility] Comment on above: Performed By: #### P HOS, MG, CAION #### [address] [address] CBCon 03-04-2025 Erythrocyte distribution width (RBC) [Ratio] 14.1 % Normal 11.5-15.5 [facility] Comment on above: Performed By: #### G , JACOBO, RACHANA, SUSY, JYOTHI, CAROL ANN, ACETA, PRO, CMP, ANEU, APTT, ALC, CBC, VBG #### [address] [address] Hematocrit (Bld) [Volume fraction] 47.9 % High 34.0-46.0 [facility] Comment on above: Performed By: #### G , JACOBO, RACHANA, SUSY, JYOTHI, CAROL ANN, ACETA, PRO, CMP, ANEU, APTT, ALC, CBC, VBG #### [address] [address] Hgb 16.5 G/dL High 12.0-16.0 [facility] Comment on above: Performed By: #### G , JACOBO, RACHANA, SUSY, JYOTHI, CAROL ANN, ACETA, PRO, CMP, ANEU, APTT, ALC, CBC, VBG #### [address] [address] MCH (RBC) [Entitic mass] 31.8 pg Normal 27.0-33.0 [facility] Comment on above: Performed By: #### G , JACOBO, RACHANA, SUSY, JYOTHI, CAROL ANN, ACETA, PRO, CMP, ANEU, APTT, ALC, CBC, VBG #### [address] [address] MCHC 34.5 G/dL Normal 32.0-36.0 [facility] Comment on above: Performed By: #### G FR, TROPHS, ADYOVANI, AMM, MDW, CAROL ANN, ACETA, PRO, CMP, ANEU, APTT, ALC, CBC, VBG #### [place] [id number] MCV (RBC) [Entitic vol] 92.2 fL Normal 80.0-99.0 [facility] Comment on above: Performed By: #### G , CATRINAS, RACHANA, AMNithin, MDW, CAROL ANN, ACETA, PRO, CMP, ANEU, APTT, ALC, CBC, VBG #### [place] [address] Platelet 238 10 3/mcL Normal 150-450 [facility] Comment on above: Performed By: #### G , TROPHS, RACHANA, AMNithin, MDW, CAROL ANN, ACETA, PRO, CMP, ANEU, APTT, ALC, CBC, VBG #### [place] [id number] Platelet mean volume (Bld) [Entitic vol] 7.8 fL Normal 6.6-10.5 [facility] Comment on above: Performed By: #### G , TROPHS, RACHANA, AMNithin, MDW, CAROL ANN, ACETA, PRO, CMP, ANEU, APTT, ALC, CBC, VBG #### [place] [address] RBC 5.20 10 6/mcL Normal 4.10-5.30 [facility] Comment on above: Performed By: #### G FR, TROPHS, RACHANA, AMM, MDW, CAROL ANN, ACETA, PRO, CMP, ANEU, APTT, ALC, CBC, VBG #### [place] [address] WBC 10.4 10 3/mcL Normal 4.5-10.8 [facility] Comment on above: Performed By: #### G , TROPHS, RACHANA, AMNithin, MDW, CAROL ANN, ACETA, PRO, CMP, ANEU, APTT, ALC, CBC, VBG #### [place] [address] [place], [place] [address] CKon 03-04-2025 CK [Catalytic activity/Vol] 81 U/L Normal 7-185 [facility] Comment on above: Performed By: #### C K #### [facility] [address] [place] [address] CK [Catalytic activity/Vol] 86 U/L Normal 26-192 [facility] Comment on above: Performed By: #### G , CATRINAS, RACHANA, AMNithin, MDW, CAROL ANN, ACETA, PRO, CMP, ANEU, APTT, ALC, CBC, VBG #### [address] [address] [facility] ALT [Catalytic activity/Vol] 16 U/L Normal 14-59 [facility] Comment on above: Performed By: #### G , JACOBO, RACHANA, AMNithin, W, CAROL ANN, ACETA, PRO, CMP, ANEU, APTT, ALC, CBC, VBG ####[place] [address] [place], [place] [address] Albumin Level 3.9 G/dL Normal 3.4-4.8 [facility] Comment on above: Performed By: #### G , CATRINAS, RACHANA, AMNithin, MDW, CAROL ANN, ACETA, PRO, CMP, ANEU, APTT, ALC, CBC, VBG ####[place] [address] [place], [place] [address] Albumin/Globulin [Mass ratio] 0.9 {ratio} Low 1.1-2.5 [facility] Comment on above: Performed By: #### G , TROPHS, RACHANA, AMM, MDW, CAROL ANN, ACETA, PRO, CMP, ANEU, APTT, ALC, CBC, VBG ####[place] [address] [place], [place] [address] ALP [Catalytic activity/Vol] 131 U/L Normal 40-135 [facility] Comment on above: Performed By: #### G , TROPHS, RACHANA, AMNithin, MDW, CAROL ANN, ACETA, PRO, CMP, ANEU, APTT, ALC, CBC, VBG ####[place] [address] [place] [phone] AST [Catalytic activity/Vol] 18 U/L Normal 10-40 [facility] Comment on above: Performed By: #### G , TROPHS, RACHANA, AMNithin, MDW, CAROL ANN, ACETA, PRO, CMP, ANEU, APTT, ALC, CBC, VBG ####[place] [address] [place] [address] Bili Total 0.5 mg/dL Normal 0.2-1.0 [facility] Comment on above: Result Comment: Use of this assay is not recommended for patients undergoing treatment with eltrombopag due to the potential for falsely elevated results. Performed By: #### G , CATRINAS, RACHANA, AMNithin, W, CAROL ANN, ACETA, PRO, CMP, ANEU, APTT, ALC, CBC, VBG ####[place] [address] [place] [address] BUN/Creatinine Ratio 24 ratio Normal 7-27 [facility] Comment on above: Performed By: #### G , CATRINAS, RACHANA, AMNithin, W, CAROL ANN, ACETA, PRO, CMP, ANEU, APTT, ALC, CBC, VBG ####[place] [address] [place] [phone] Calcium [Mass/Vol] 9.4 mg/dL Normal 8.4-10.2 [facility] Comment on above: Performed By: #### G , TROPHS, RACHANA, AMNithin, MDW, CAROL ANN, ACETA, PRO, CMP, ANEU, APTT, ALC, CBC, VBG ####[place] [address] [place] [phone] Chloride [Moles/Vol] 105 mmol/L Normal 98-107 [facility] Comment on above: Performed By: #### G FR, TROPHS, ADIFF, AMM, MDW, CAROL ANN, ACETA, PRO, CMP, ANEU, APTT, ALC, CBC, VBG ####[place] [address] [place], [place] [address] CO2 [Moles/Vol] 23 mmol/L Normal 23-31 [facility] Comment on above: Performed By: #### G FR, TROPHS, ADIFF, AMM, MDW, CAROL ANN, ACETA, PRO, CMP, ANEU, APTT, ALC, CBC, VBG ####[place] [address] [place], [place] [address] Creatinine [Mass/Vol] 0.68 mg/dL Normal 0.51-0.95 [facility] Comment on above: Performed By: #### G FR, TROPHS, ADIFF, AMM, MDW, CAROL ANN, ACETA, PRO, CMP, ANEU, APTT, ALC, CBC, VBG ####[address] [address] Electrolyte Balance 14.0 mEq/L Normal 4.0-15.0 [facility] Comment on above: Performed By: #### G FR, TROPHS, ADIFF, AMM, MDW, CAROL ANN, ACETA, PRO, CMP, ANEU, APTT, ALC, CBC, VBG ####[address] [address] Globulin 4.2 G/dL Normal 2.7-4.4 [facility] Comment on above: Performed By: #### G FR, TROPHS, ADIFF, AMM, MDW, CAROL ANN, ACETA, PRO, CMP, ANEU, APTT, ALC, CBC, VBG ####[place] [address] Glucose [Mass/Vol] 125 mg/dL High 80-115 [facility] Comment on above: Performed By: #### G FR, TROPHS, ADIFF, AMM, MDW, CAROL ANN, ACETA, PRO, CMP, ANEU, APTT, ALC, CBC, VBG ####[address] [address] Potassium [Moles/Vol] 3.5 mmol/L Normal 3.5-5.1 [facility] Comment on above: Performed By: #### G FR, TROPHS, ADIFF, AMM, MDW, CAROL ANN, ACETA, PRO, CMP, ANEU, APTT, ALC, CBC, VBG ####[place] [address] [place], [place] [address] Sodium [Moles/Vol] 142 mmol/L Normal 136-145 [facility] Comment on above: Performed By: #### G FR, TROPHS, ADIFF, AMM, MDW, CAROL ANN, ACETA, PRO, CMP, ANEU, APTT, ALC, CBC, VBG ####[place] [address] [place] [id number] Total Protein 8.1 G/dL Normal 6.4-8.2 [facility] Comment on above: Performed By: #### G FR, TROPHS, ADIFF, AMM, MDW, CAROL ANN, ACETA, PRO, CMP, ANEU, APTT, ALC, CBC, VBG ####[place] [address] [place], [place] [address] Urea nitrogen [Mass/Vol] 16 mg/dL Normal 7-18 [facility] Comment on above: Performed By: #### G FR, TROPHS, ADIFF, AMM, MDW, CAROL ANN, ACETA, PRO, CMP, ANEU, APTT, ALC, CBC, VBG ####[place] [address] [place], [place] [address] CT ANGIOGRAPHY HEAD W/ CONTR Leland 03-04-2025 CT ANGIOGRAPHY HEAD W/ CONTRAST ORIGINAL EXAMINATION: CTA OF THE HEAD WITH CONTRAST 03/04/2025 7:20 am: TECHNIQUE: CTA of the head/brain was performed with the administration of intravenous contrast. Multiplanar reformatted images are provided for review. MIP images are provided for review. Automated exposure control, iterative reconstruction, and/or weight based adjustment of the mA/kV was utilized to reduce the radiation dose to as low as reasonably achievable. COMPARISON: CT head on 03/04/2025 HISTORY: ORDERING SYSTEM PROVIDED HISTORY: Reason for Exam: STROKE FINDINGS: ANTERIOR CIRCULATION: No significant stenosis of the intracranial internal carotid, anterior cerebral, or middle cerebral arteries. No aneurysm. POSTERIOR CIRCULATION: No significant stenosis of the vertebral, basilar, or posterior cerebral arteries. No aneurysm. OTHER: No dural venous sinus thrombosis on this non-dedicated study. BRAIN: No mass effect or midline shift. No extra-axial fluid collection. The cabrera-white differentiation is maintained. IMPRESSION: Unremarkable CTA of the head. Interpreted by: Jose Daniel Hutchinson MD Preliminary Report By: Jose Daniel Hutchinson MD Electronically signed By Jose Daniel Hutchinson MD Dictated Date: 03/04/2025 7:22:20 AM Prelim Date: 03/04/2025 7:26:04 AM Sign Date: 03/04/2025 7:26:04 AM Ordering Provider: TYLER Pepe [facility] CT ANGIOGRAPHY NECK W/CONTRA STon 03-04-2025 CT ANGIOGRAPHY NECK W/CONTRAST ORIGINAL EXAMINATION: CTA OF THE NECK03/04/2025 7:33 am TECHNIQUE: CTA of the neck was performed with the administration of intravenous contrast. Multiplanar reformatted images are provided for review. MIP images are provided for review. Stenosis of the internal carotid arteries measured using NASCET criteria. Automated exposure control, iterative reconstruction, and/or weight based adjustment of the mA/kV was utilized to reduce the radiation dose to as low as reasonably achievable. COMPARISON: CTA chest 04/22/2023 HISTORY: ORDERING SYSTEM PROVIDED HISTORY: Reason for Exam: encephalopathy FINDINGS: The imaged aortic arch is mildly atherosclerotic. The origins of the innominate, bilateral common carotid, right subclavian, and bilateral vertebral arteries are patent. Focal occlusion at the proximal left subclavian artery a few cm past the origin, proximal to the vertebral origin. Immediate reconstitution with the remainder of the visualized artery patent. This is unchanged dating back to the 2022 exam. There is no significant internal carotid artery stenosis bilaterally by NASCET criteria. At the distal left common carotid artery, just proximal to bulb, there is a punctate focus of contrast penetrating into soft plaque anteriorly. This may represent a small penetrating ulceration. The bilateral external carotid arteries are patent. The cervical vertebral arteries are patent and codominant. Hypoventilatory changes. Multi-vessel coronary artery atherosclerosis. Nodules throughout the thyroid, up to 1.8 cm on the right. 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 Immediate reconstitution. This is been unchanged since at least 2022. No significant stenosis of the carotid arteries. Question very small penetrating ulceration of the proximal left common carotid artery. Thyroid nodules. Follow-up with nonemergent thyroid ultrasound is recommended. Critical results were called by Dr. Molina Cruz to Dr. Michael on 03/04/2025 at 07:44. I have personally reviewed the images of this examination, and agree with the resident's findings and interpretation. Interpreted by: Jose Daniel Hutchinson MD Preliminary Report By: Molina Cruz Electronically signed By Jose Daniel Hutchinson MD Dictated Date: 03/04/2025 7:34:26 AM Prelim Date: 03/04/2025 7:49:15 AM Sign Date: 03/04/2025 7:58:20 AM Ordering Provider: [facility] CT HEAD OR BRAIN W/O CONTRAS Ton 03-04-2025 CT HEAD OR BRAIN W/O CONTRAST ORIGINAL EXAMINATION: CT OF THE HEAD WITHOUT CONTRAST 03/04/2025 3:55 am TECHNIQUE: CT of the head was performed without the administration of intravenous contrast. Automated exposure control, iterative reconstruction, and/or weight based adjustment of the mA/kV was utilized to reduce the radiation dose to as low as reasonably achievable. COMPARISON: None. HISTORY: ORDERING SYSTEM PROVIDED HISTORY: Reason for Exam: Altered mental status FINDINGS: BRAIN/VENTRICLES: There is no acute intracranial hemorrhage, mass effect or midline shift. No abnormal extra-axial fluid collection. The cabrera-white differentiation is maintained without evidence of an acute infarct. There is no evidence of hydrocephalus. ORBITS: The visualized portion of the orbits demonstrate no acute abnormality. SINUSES: The visualized paranasal sinuses and mastoid air cells demonstrate no acute abnormality. SOFT TISSUES/SKULL: No acute abnormality of the visualized skull or soft tissues. IMPRESSION: No acute intracranial abnormality. Interpreted by: Jose Daniel Hutchinson MD Preliminary Report By: Jose Daniel Hutchinson MD Electronically signed By Jose Daniel Hutchinson MD Dictated Date: 03/04/2025 4:07:46 AM Prelim Date: 03/04/2025 4:10:49 AM Sign Date: 03/04/2025 4:10:49 AM Ordering Provider: [facility] CVFLURVon 03-04-2025 FLU A PCR Negative Normal Negative [facility] Comment on above: Performed By: #### G FR, TROPHS, ADIFF, AMM, MDW, CAROL ANN, ACETA, PRO, CMP, ANEU, APTT, ALC, CBC, VBG #### [place] [address] [place], [place] [address] FLU B PCR Negative Normal Negative [facility] Comment on above: Performed By: #### G FR, TROPHS, ADIFF, AMM, MDW, CAROL ANN, ACETA, PRO, CMP, ANEU, APTT, ALC, CBC, VBG #### [place] [address] [place], [place] [address] RSV PCR Negative Normal Negative [facility] Comment on above: Performed By: #### G FR, TROPHS, ADIFF, AMM, MDW, CAROL ANN, ACETA, PRO, CMP, ANEU, APTT, ALC, CBC, VBG #### [address] [address] SARS-CoV-2 (COVID-19) RNA IAN+probe Ql (Unsp spec) Negative Normal Negative [facility] Comment on above: Result Comment: Resu lts from the Xpert Xpress CoV-2/Flu/RSV plus test should be correlated with the clinical history, epidemiological data, and other data available to the clinical evaluating the patient. Performance of the Xpert Xpress CoV-2/Flu/RSV plus test has only been established in nasopharyngeal swab specimen. Erroneous test results might occur from improper specimen collection, failure to follow the recommended sample collection, handling and storage procedures, technical error, or sample mix-up. False negative results may occur if a virus is present at a level below the analytical limit of detection. Viral nucleic acid may persist in vivo, independent of virus viability. Detection of analyte target(s) does not imply that the corresponding virus(es) are infectious or are the causative agents for clinical symptoms. Recent patient exposure to FluMist or other live attenuated influenza vaccines may cause inaccurate positive results. Performed By: #### G FR, TROPHS, ADIFF, AMM, MDW, CAROL ANN, ACETA, PRO, CMP, ANEU, APTT, ALC, CBC, VBG #### [facility] [address] [place], [place] [address] FT4on 03-04-2025 Free T4 [Mass/Vol] 1.05 ng/dL Normal 0.89-1.76 [facility] Comment on above: Result Comment: No te - New Reference Range in effect 20 Performed By: #### L AC, TSH, TROPHS, FT4 ####[address] [address] LABORATORYOrdered By: Emily Rosenberg on 03-04-2025 Calcium Ionized 1.08 mmol/L Low 1.12 - 1.32 mmol/L Main Rapid Comm SS LABORATORYOrdered By: SYSTEM SYSTEM on 03-04-2025 CK [Catalytic activity/Vol] 81 U/L Normal 7 - 185 U/L ADM SS Free T4 [Mass/Vol] 1.05 ng/dL Normal 0.89 - 1. 76 ng/dL ADM SS Comment on above: Interpretive Data: * *Note - New Reference Range in effect 20 Lactate [Moles/Vol] 0.9 mmol/L Normal 0.5 - 2. 2 mmol/L AH ADM SS Magnesium [Mass/Vol] 2.2 mg/dL Normal 1.6 - 2 .4 mg/dL AH ADM SS Phosphate [Mass/Vol] 3.6 mg/dL Normal 2.4 - 5 .1 mg/dL AH ADM SS Comment on above: Interpretive Data: * *Note - New Reference Range in effect 20 Troponin I.cardiac DL <= 0.01 ng/mL [Mass/Vol] 3 ng/L Normal 0 - 34 ng/L AH ADM SS Comment on above: Interpretive Data: High Sensitive Troponin I Reference Ranges: Female: 0-34 ng/L Male: 0-54 ng/L Testing performed on [place] analyzer using direct chemiluminescent technology. TSH Qn 2.185 mIU/mL Normal 0.550 - 4.780 mIU/mL AH ADM SS Albumin BCP dye [Mass/Vol] 3.9 G/dL Normal 3.4 - 4.8 G/dL AO ADM SS Albumin/Globulin [Mass ratio] 0.9 {ratio} Low 1.1 - 2.5 ratio AO ADM SS ALP [Catalytic activity/Vol] 131 U/L Normal 40 - 135 U/L AO ADM SS ALT With P-5'-P [Catalytic activity/Vol] 16 U/L Normal 14 - 59 U/L AO ADM SS Ammonia (P) [Mass/Vol] umol/l Low 11 - 32 umol/L AO ADM SS aPTT Coag (PPP) [Time] 29.2 s Normal 25.0 - 35.0 seconds AO HemoHub SS Comment on above: Interpretive Data: F or Heparin anticoagulation therapy, the recommended therapeutic range is: 45.4-75.9 seconds. Patients on heparin therapy may have an extreme result. AST With P-5'-P [Catalytic activity/Vol] 18 U/L Normal 10 - 40 U/L AO ADM SS Basophils (Bld) [#/Vol] 0.1 103/mcL Normal 0.0 - 0.3 10^3/mcL AO Workflow SS Basophils/100 WBC (Bld) 0.7 % Normal 0.0 - 2.5 % AO Workflow SS Bilirubin [Mass/Vol] 0.5 mg/dL Normal 0.2 - 1 .0 mg/dL AO ADM SS Comment on above: Interpretive Data: U se of this assay is not recommended for patients undergoing treatment with eltrombopag due to the potential for falsely elevated results. Calcium [Mass/Vol] 9.4 mg/dL Normal 8.4 - 10. 2 mg/dL AO ADM SS Chloride [Moles/Vol] 105 mmol/L Normal 98 - 10 7 mmol/L AO ADM SS CK [Catalytic activity/Vol] 86 U/L Normal 26 - 192 U/L AO ADM SS CO2 [Moles/Vol] 23 mmol/L Normal 23 - 31 mmol/L AO ADM SS Creatinine [Mass/Vol] 0.68 mg/dL Normal 0.51 - 0.95 mg/dL AO ADM SS Electrolyte Balance 14.0 mEq/L Normal 4.0 - 15 .0 mEq/L AO ADM SS Eosinophil, Absolute 0.0 103/mcL Normal 0.0 - 0 .7 10^3/mcL AO Workflow SS Eosinophils/100 WBC (Bld) 0.4 % Normal 0.0 - 6.0 % AO Workflow SS Erythrocyte distribution width (RBC) [Ratio] 14.1 % Normal 11.5 - 15.5 % AO Workflow SS Estimated Glomerular Filtration Rate 98 ml/min/1.73sqm Invalid Interpretation Code AO Chemistry S Comment on above: Interpretive Data: Stages of Chronic Kidney Disease (CKD) Stage Description eGFR(ml/min/1.73 sq.m.) CKD 1 Normal kidney function or >=90 normal kindney function with possible kidney damage (ex. Proteinuria) CKD 2 Kidney damage with mild loss 60-89 of kidney function CKD 3a Mild to moderate loss of kidney 45-59 function CKD 3b Moderate to severe loss of 30-44 of kindey function CKD 4 Severe loss of kidney function 15-29 CKD 5 Kidney failure <15 Note: (go live 2024) the eGFR calculation was updated to the 2020 CKD-EPI creatinine equation without a race factor to calculate the eGFR results. Ethanol [Mass/Vol] mg/dL Invalid Interpretation Code AO ADM SS Globulin 4.2 G/dL Normal 2.7 - 4.4 G/dL AO ADM SS Glucose [Mass/Vol] 125 mg/dL High 80 - 115 mg/dL AO ADM SS Hematocrit (Bld) [Volume fraction] 47.9 % High 34.0 - 46.0 % AO Workflow SS Hemoglobin (Bld) [Mass/Vol] 16.5 G/dL High 12.0 - 16.0 G/dL AO Workflow SS INR Coag (PPP) [Relative time] 1.1 {INR} Invalid Interpretation Code AO HemoHub SS Comment on above: Interpretive Data: [employer] [place] [employer] (CHEST, 1991, 102:[id number]) recommended therapeutic range for oral anticoagulant therapy is: LOW RISK: Prophylaxis of venous thrombosis INR: 2.0-3.0 Treatment of pulmonary embolism 2.0-3.0 Prevention of systemic embolism 2.0-3.0 HIGH RISK: Mechanical prosthetic valves 2.5-3.5 Lymphocytes (Bld) [#/Vol] 2.1 103/mcL Normal 0.9 - 4.3 10^3/mcL AO Workflow SS Lymphocytes/100 WBC (Bld) 20.1 % Normal 20.0 - 40.0 % AO Workflow SS Magnesium [Mass/Vol] 2.1 mg/dL Normal 1.8 - 2 .4 mg/dL AO ADM SS MCH (RBC) [Entitic mass] 31.8 pg Normal 27.0 - 33.0 pg AO Workflow SS MCHC 34.5 G/dL Normal 32.0 - 36.0 G/dL AO Workflow SS MCV (RBC) [Entitic vol] 92.2 fL Normal 80.0 - 99.0 fL AO Workflow SS Monocyte distribution width Auto (Bld) [Entitic vol] 15.70 1 Normal 0.00 - 20.00 AO Workflow SS Comment on above: Result Comment: For ED adult patients suspected of sepsis, MDW<=20.0 does not rule out sepsis or risk of sepsis Monocytes (Bld) [#/Vol] 0.8 103/mcL Normal 0.1 - 1.4 10^3/mcL AO Workflow SS Monocytes/100 WBC (Bld) 7.6 % Normal 2.0 - 13.0 % AO Workflow SS Neutrophils (Bld) [#/Vol] 7.4 103/mcL Normal 2.3 - 8.1 10^3/mcL AO Workflow SS Neutrophils/100 WBC (Bld) 71.2 % Normal 50.0 - 75.0 % AO Workflow SS Platelet mean volume (Bld) [Entitic vol] 7.8 fL Normal 6.6 - 10.5 fL AO Workflow SS Platelets (Bld) [#/Vol] 238 103/mcL Normal 150 - 450 10^3/mcL AO Workflow SS Potassium [Moles/Vol] 3.5 mmol/L Normal 3.5 - 5.1 mmol/L AO ADM SS Protein [Mass/Vol] 8.1 G/dL Normal 6.4 - 8.2 G/dL AO ADM SS PT Coag (PPP) [Time] 12.7 s Normal 9.0 - 1 4.4 seconds AO HemoHub SS RBC (Bld) [#/Vol] 5.20 106/mcL Normal 4.10 - 5.3 0 10^6/mcL AO Workflow SS Salicylates [Mass/Vol] 9.9 mg/dL Normal 2.8 - 20.0 mg/dL AO ADM SS Sodium [Moles/Vol] 142 mmol/L Normal 136 - 145 mmol/L AO ADM SS Troponin I.cardiac DL <= 0.01 ng/mL [Mass/Vol] 4 ng/L Normal 0 - 51 ng/L AO ADM SS Comment on above: Interpretive Data: H igh Sensitive Troponin I Reference Ranges: Female: 0-51 ng/L Male: 0-76 ng/L Testing performed on [employer] using a homogeneous sandwich chemiluminescent immunoassay based on [employer] technology. Urea nitrogen [Mass/Vol] 16 mg/dL Normal 7 - 18 mg/dL AO ADM SS Urea nitrogen/Creatinine [Mass ratio] 24 ratio Normal 7 - 27 ratio AO ADM SS WBC (Bld) [#/Vol] 10.4 103/mcL Normal 4.5 - 10.8 10^3/mcL AO Workflow SS LABORATORYOrdered By: Tamie Masters on 03-04-2025 Appearance (U) Clear (03/04/25 11:35 AM) Normal Clear AH Auto Urine SS Bilirubin Ql (U) Negative (03/04/25 11:35 AM) Normal Neg-Trace AH Auto Urine SS Color (U) Straw (03/04/25 11:35 AM) Normal AH Auto Urine SS Crystals.amorphous LM.HPF (Urine sed) [#/Area] Trace /HPF Normal AH Auto Urine SS Glucose Test strip (U) [Mass/Vol] Negative Normal Negative AH Auto Urine SS Hemoglobin Auto test strip (U) [Mass/Vol] Moderate *ABN* (03/04/25 11:35 AM) Invalid Interpretation Code Neg-Trace AH Auto Urine SS Ketones Ql (U) Negative (03/04/25 11:35 AM) Normal Neg-Trace AH Auto Urine SS UA Leuk Est Small *ABN* (03/04/25 11:35 AM) Invalid Interpretation Code Negative AH Auto Urine SS UA Nitrite Negative (03/04/25 11:35 AM) Normal Negative AH Auto Urine SS UA pH 5.5 (03/04/25 11:35 AM) Normal 5.0 - 8.0 AH Auto Urine SS UA Protein Negative Normal Negative AH Auto Urine SS UA RBC 0-2 /HPF Normal 0-2 AH Auto Urine SS UA Spec Grav <=1.005 *ABN* (03/04/25 11:35 AM) Invalid Interpretation Code AH Auto Urine SS UA Specimen Type Clean Catch (03/04/25 11:35 AM) Normal AH Auto Urine SS UA Squam Epithelial Negative Normal 0-20 AH Au to Urine SS UA Urobilinogen 0.2 E.U./dL Normal AH Auto Urine SS WBC LM.HPF (Urine sed) [#/Area] 3-5 /HPF Normal 0-5 AH Auto Urine SS LABORATORYOrdered By: Ty Carrasco on 03-04-2025 Glucose [Mass/Vol] 119 mg/dL High 82 - 115 mg/dL [facility] Work Phone: LABORATORYOrdered By: Bev Goodmanus on 03-04-2025 Acetaminophen [Mass/Vol] mcg/mL Low 10.0 - 30.0 mcg/mL AO Chemistry S Amphetamines Screen Ql (U) Negative *NA* (03/04/25 3:25 AM) Invalid Interpretation Code Negative AO ADM SS Appearance (U) Slightly Cloudy *ABN* (03/04/25 3:25 AM) Invalid Interpretation Code Clear AO Auto Urine SS Bacteria LM.HPF (Urine sed) [#/Area] Trace /HPF Invalid Interpretation Code Negative AO Auto Urine SS Barbiturates Screen Ql (U) Negative *NA* (03/04/25 3:25 AM) Invalid Interpretation Code Negative AO ADM SS BE Venous -0.3 mmol/L Normal -3.0 - 3.0 mmol/L AO Rapid Comm SS Benzodiazepines Ql (U) Negative *NA* (03/04/25 3:25 AM) Invalid Interpretation Code Negative AO ADM SS Benzoylecgonine Screen Ql (U) Negative *NA* (03/04/25 3:25 AM) Invalid Interpretation Code Negative AO ADM SS Bilirubin Ql (U) Small *ABN* (03/04/25 3:25 AM) Invalid Interpretation Code Negative AO Auto Urine SS Cannabinoids Screen Ql (U) Negative *NA* (03/04/25 3:25 AM) Invalid Interpretation Code Negative AO ADM SS CO2 [Moles/Vol] 22.9 mmol/L Normal 22.0 - 32.0 mmol/L AO Rapid Comm SS Color (U) Yellow (03/04/25 3:25 AM) Normal AO Auto Urine SS FLUAV RNA IAN+probe Ql (Resp) Negative (03/04/25 3:25 AM) Normal Negative AO Auto Urine SS FLUBV RNA IAN+probe Ql (Resp) Negative (03/04/25 3:25 AM) Normal Negative AO Auto Urine SS Glucose Test strip (U) [Mass/Vol] Negative Normal Negative AO Auto Urine SS HCO3 (Bld) [Moles/Vol] 22.0 mmol/L Normal 21.0 - 30.0 mmol/L AO Rapid Comm SS Hemoglobin Auto test strip (U) [Mass/Vol] Trace (03/04/25 3:25 AM) Normal Negative AO Auto Urine SS Ketones Ql (U) 40 mg/dL Invalid Interpretation Code Negative AO Auto Urine SS Methadone Screen Ql (U) Negative *NA* (03/04/25 3:25 AM) Invalid Interpretation Code Negative AO ADM SS Opiates Screen Ql (U) Negative *NA* (03/04/25 3:25 AM) Invalid Interpretation Code Negative AO ADM SS pCO2 Scotty 30.5 mm[Hg] Low 41.0 - 51.0 mm Hg AO Rapid Comm SS pH (Bld) 7.476 [pH] High 7.380 - 7.460 AO Rapid Comm SS Phencyclidine Ql (U) Negative *NA* (03/04/25 3:25 AM) Invalid Interpretation Code Negative AO ADM SS pO2 Scotty 62.4 mm[Hg] High 35.0 - 40.0 mm Hg AO Rapid Comm SS RSV RNA IAN+probe Ql (Resp) Negative (03/04/25 3:25 AM) Normal Negative AO Auto Urine SS SARS-CoV-2 (COVID-19) RNA IAN+probe Ql (Resp) Negative 8 (03/04/25 3:25 AM) Normal Negative AO Auto Urine SS Comment on above: Interpretive Data: R esults from the Xpert Xpress CoV-2/Flu/RSV plus test should be correlated with the clinical history, epidemiological data, and other data available to the clinical evaluating the patient. Performance of the Xpert Xpress CoV-2/Flu/RSV plus test has only been established in nasopharyngeal swab specimen. Erroneous test results might occur from improper specimen collection, failure to follow the recommended sample collection, handling and storage procedures, technical error, or sample mix-up. False negative results may occur if a virus is present at a level below the analytical limit of detection. Viral nucleic acid may persist in vivo, independent of virus viability. Detection of analyte target(s) does not imply that the corresponding virus(es) are infectious or are the causative agents for clinical symptoms. Recent patient exposure to FluMist or other live attenuated influenza vaccines may cause inaccurate positive results. UA Leuk Est Trace (03/04/25 3:25 AM) Normal Negative AO Auto Urine SS UA Mucous 1+ /HPF Normal AO Auto Urine SS UA Nitrite Negative (03/04/25 3:25 AM) Normal Negative AO Auto Urine SS UA pH 8.0 (03/04/25 3:25 AM) Normal 5.0 - 8.0 AO Auto Urine SS UA Protein 30 mg/dL Normal Negative AO Auto Urine SS UA RBC 0-2 /HPF Normal 0-2 AO Auto Urine SS UA Spec Grav 1.010 *ABN* (03/04/25 3:25 AM) Invalid Interpretation Code 1.015-1.025 AO Auto Urine SS UA Specimen Type Void (03/04/25 3:25 AM) Normal AO Auto Urine SS UA Squam Epithelial 0-2 /HPF Normal 0-20 AO Au to Urine SS UA Urobilinogen 0.2 E.U./dL Normal 0.2-1.0 AO Auto Urine SS Urine Drugs screened: See Below 6 (03/04/25 3:25 AM) Normal AO Chemistry S Comment on above: Interpretive Data: T his drug screen is a presumptive screening only. No confirmation will be performed unless requested. Drugs screened include: Threshold Amphetamines/Methamphetamines 1,000 ng/mL Barbiturates 200 ng/mL Benzodiazepine metabolites 200 ng/mL Cannabinoids (THC metabolites) 50 ng/mL Cocaine 300 ng/mL Opiates 300 ng/mL Methadone 300 ng/mL Phencyclidine (PCP) 25 ng/mL Testing has been performed FOR MEDICAL PURPOSES ONLY. WBC LM.HPF (Urine sed) [#/Area] 0-2 /HPF Normal 0-5 AO Auto Urine SS LACon 03-04-2025 Lactic Acid Lvl 0.9 mmol/L Normal 0.5-2.2 [facility] Comment on above: Performed By: #### L AC, TSH, TROPHS, FT4 #### [address] [address] on 03-04-2025 Magnesium [Mass/Vol] 2.2 mg/dL Normal 1.6-2.4 [facility] Comment on above: Performed By: #### P HOS, MG, CAION #### [address] [address] Magnesium [Mass/Vol] 2.1 mg/dL Normal 1.8-2.4 [facility] Comment on above: Performed By: #### G FR, TROPHS, ADIFF, AMM, MDW, CAROL ANN, ACETA, PRO, CMP, ANEU, APTT, ALC, CBC, VBG #### [id number] [place], [place] [address] No Panel Informationon 03-04 Microscopic examination of blood, culture Culture has been received in lab and is no growth to date. Routine cultures are held for 5 days. [facility] Work Phone: Microscopic examination of blood, culture Culture has been received in lab and is no growth to date. Routine cultures are held for 5 days. [facility] Work Phone: PHOSon 03-04-2025 Phosphate [Mass/Vol] 3.6 mg/dL Normal 2.4-5.1 [facility] Comment on above: Result Comment: No te - New Reference Range in effect 20 Performed By: #### P HOS, MG, CAION #### [facility] [address] [place] [id number] PROon 03-04-2025 PT Coag (PPP) [Time] 12.7 s Normal 9.0-14.4 [facility] Comment on above: Performed By: #### G , JACOBO, RACHANA, SUSY, JYOTHI, CAROL ANN, ACETA, PRO, CMP, ANEU, APTT, ALC, CBC, VBG #### [address] [address] PT International Ratio 1.1 Normal [facility] Comment on above: Result Comment: [employer] (CHEST, 1992, 102:312S-25S) recommended therapeutic range for oral anticoagulant therapy is: LOW RISK: Prophylaxis of venous thrombosis INR: 2.0-3.0 Treatment of pulmonary embolism 2.0-3.0 Prevention of systemic embolism 2.0-3.0 HIGH RISK: Mechanical prosthetic valves 2.5-3.5 Performed By: #### G , JACOBO, RACHANA, SUSY, MDW, CAROL ANN, ACETA, PRO, CMP, ANEU, APTT, ALC, CBC, VBG #### [id number] [place], [place] [address] SALon 03-04-2025 Salicylate Level 9.9 mg/dL Normal 2.8-20.0 [facility] Comment on above: Performed By: #### G , JACOBO, RACHANA, SUSY, JYOTHI, CAROL ANN, ACETA, PRO, CMP, ANEU, APTT, ALC, CBC, VBG ####[address] [place], [place] [address] TROPHFormerly [facility] 03-04-2025 High Sensitivity Troponin I 3 ng/L Normal 0-34 [facility] Comment on above: Result Comment: High Sensitive Troponin I Reference Ranges: Female: 0-34 ng/L Male: 0-54 ng/L Testing performed on Tynker analyzer using direct chemiluminescent technology. Performed By: #### L AC, TSH, TROPHS, FT4 #### [address] [address] High Sensitivity Troponin I 4 ng/L Normal 0-51 [facility] Comment on above: Result Comment: High Sensitive Troponin I Reference Ranges: Female: 0-51 ng/L Male: 0-76 ng/L Testing performed on [employer] using a homogeneous sandwich chemiluminescent immunoassay based on [employer] technology. Performed By: #### G , JACOBO, RACHANA, SUSY, JYOTHI, CAROL ANN, ACETA, PRO, CMP, ANEU, APTT, ALC, CBC, VBG ####[address] [place], [place] [address] TSHon 03-04-2025 TSH 2.185 mIU/mL Normal 0.550-4.780 [facility] Comment on above: Performed By: #### L AC, TSH, TROPHS, FT4 ####[address] [address] UAon 03-04-2025 Color (U) Straw Normal [facility] Comment on above: Performed By: #### U A, UAMIC #### [place] [id number] Glucose (U) [Mass/Vol] Negative Normal Negative [facility] Comment on above: Performed By: #### U A, UAMIC #### [address] [address] Ketones Ql (U) Negative Normal Neg-Trace [facility] Comment on above: Performed By: #### U A, UAMIC #### [place] [address] UA Appear Clear Normal Clear [facility] Comment on above: Performed By: #### U A, UAMIC #### [place] [address] UA Blood Moderate Abnormal Neg-Trace [facility] Comment on above: Performed By: #### U A, UAMIC #### [place] [address] UA Leuk Est Small Abnormal Negative [facility] Comment on above: Performed By: #### U A, UAMIC #### [place] [address] UA Nitrite Negative Normal [facility] Comment on above: Performed By: #### U A, UAMIC #### [place] [address] UA pH 5.5 Normal 5.0 - 8.0 [facility] Comment on above: Performed By: #### U A, UAMIC #### [place] [address] UA Protein Negative Normal [facility] Comment on above: Performed By: #### U A, UAMIC #### [place] [address] UA Spec Grav <=1.005 [facility] Comment on above: Performed By: #### U A, UAMIC #### [place] [address] UA Specimen Type Clean Catch [facility] Comment on above: Performed By: #### U A, UAMIC #### [place] [address] UA Urobilinogen 0.2 E.U./dL Normal [facility] Comment on above: Performed By: #### U A, UAMIC #### [place] [address] Urobilinogen (U) [Mass/Vol] Negative Normal Neg-Trace [facility] Comment on above: Performed By: #### U A, UAMIC #### [facility] [address] [place] [address] Color (U) Yellow Normal [facility] Comment on above: Performed By: #### G FR, TROPHElinor, RACHANA, SUSY, MDW, CAROL ANN, ACETA, PRO, CMP, ANEU, APTT, ALC, CBC, VBG #### [place] [address] Glucose (U) [Mass/Vol] Negative Normal Negative [facility] Comment on above: Performed By: #### G , CATRINAS, RACHANA, SUSY, W, CAROL ANN, ACETA, PRO, CMP, ANEU, APTT, ALC, CBC, VBG #### [place] [address] Ketones Ql (U) 40 mg/dL Abnormal Negative [facility] Comment on above: Performed By: #### G , CATRINAS, RACHANA, SUSY, W, CAROL ANN, ACETA, PRO, CMP, ANEU, APTT, ALC, CBC, VBG #### [place] [address] UA Appear Slightly Cloudy Abnormal Clear [facility] Comment on above: Performed By: #### G , TROPHS, RACHANA, SUSY, MDW, CAROL ANN, ACETA, PRO, CMP, ANEU, APTT, ALC, CBC, VBG #### [place] [address] UA Bili Small Abnormal Negative [facility] Comment on above: Performed By: #### G , TROPHS, RACHANA, AMNithin, W, CAROL ANN, ACETA, PRO, CMP, ANEU, APTT, ALC, CBC, VBG #### [place] [address] UA Blood Trace Normal Negative [facility] Comment on above: Performed By: #### G FR, TROPHS, ADYOVANI, AMNithin, MDW, CAROL ANN, ACETA, PRO, CMP, ANEU, APTT, ALC, CBC, VBG #### [place] [id number] UA Leuk Est Trace Normal Negative [facility] Comment on above: Performed By: #### G FR, TROPHS, ADYOVANI, AMNithin, W, CAROL ANN, ACETA, PRO, CMP, ANEU, APTT, ALC, CBC, VBG #### [place] [address] UA Nitrite Negative Normal Negative [facility] Comment on above: Performed By: #### G FR, TROPHS, ADYOVANI, AMNithin, MDW, CAROL ANN, ACETA, PRO, CMP, ANEU, APTT, ALC, CBC, VBG #### [place] [address] UA pH 8.0 Normal 5.0 - 8.0 [facility] Comment on above: Performed By: #### G , TROPHS, ADYOVANI, AMNithin, W, CAROL ANN, ACETA, PRO, CMP, ANEU, APTT, ALC, CBC, VBG #### [place] [address] UA Protein 30 mg/dL Normal Negative [facility] Comment on above: Performed By: #### G , CATRINAS, RACHANA, SUSY, JYOTHI, CAROL ANN, ACETA, PRO, CMP, ANEU, APTT, ALC, CBC, VBG #### [place] [address] UA Spec Grav 1.010 Abnormal 1.015-1.025 [facility] Comment on above: Performed By: #### G , TROPHS, ADYOVANI, AMNithin, W, CAROL ANN, ACETA, PRO, CMP, ANEU, APTT, ALC, CBC, VBG #### [place] [address] UA Specimen Type Void Normal [facility] Comment on above: Performed By: #### G , TROPHS, RACHANA, AMNithin, W, CAROL ANN, ACETA, PRO, CMP, ANEU, APTT, ALC, CBC, VBG #### [place] [address] UA Urobilinogen 0.2 E.U./dL Normal 0.2-1.0 [facility] Comment on above: Performed By: #### G FR, TROPHS, RACHANA, SUSY, W, CAROL ANN, ACETA, PRO, CMP, ANEU, APTT, ALC, CBC, VBG #### [address] [address] UAMICon 03-04-2025 UA Amorphus Trace Normal [facility] Comment on above: Performed By: #### U A, UAMIC #### [address] [address] UA RBC 0-2 Normal 0-2 [facility] Comment on above: Performed By: #### U A, UAMIC #### [address] [address] UA Squam Epithelial Negative Normal 0-20 [facility] Comment on above: Performed By: #### U A, UAMIC #### [address] [address] UA WBC 3-5 Normal 0-5 [facility] Comment on above: Performed By: #### U A, UAMIC #### [address] [address] UA Bacteria Trace Abnormal Negative [facility] Comment on above: Performed By: #### G FR, TROPHS, RACHANA, AMNithin, MDW, CAROL ANN, ACETA, PRO, CMP, ANEU, APTT, ALC, CBC, VBG #### [address] [address] UA Mucous 1+ /hpf Normal [facility] Comment on above: Performed By: #### G FR, TROPHS, ADYOVANI, AMNithin, MDW, CAROL ANN, ACETA, PRO, CMP, ANEU, APTT, ALC, CBC, VBG #### [address] [address] UA RBC 0-2 Normal 0-2 [facility] Comment on above: Performed By: #### G FR, TROPHS, ADIFF, AMNithin, MDW, CAROL ANN, ACETA, PRO, CMP, ANEU, APTT, ALC, CBC, VBG #### [place] [address] UA Squam Epithelial 0-2 Normal 0-20 [facility] Comment on above: Performed By: #### G FR, TROPHS, ADIFF, AMM, MDW, CAROL ANN, ACETA, PRO, CMP, ANEU, APTT, ALC, CBC, VBG #### [place] [address] UA WBC 0-2 Normal 0-5 [facility] Comment on above: Performed By: #### G FR, TROPHS, ADIFF, AMNithin, MDW, CAROL ANN, ACETA, PRO, CMP, ANEU, APTT, ALC, CBC, VBG #### [place] [address] UDRUGon 03-04-2025 Amphetamine (u) Negative Normal Negative [facility] Comment on above: Performed By: #### G FR, TROPHS, ADIFF, AMM, MDW, CAROL ANN, ACETA, PRO, CMP, ANEU, APTT, ALC, CBC, VBG #### [place] [address] Barbiturate (u) Negative Normal Negative [facility] Comment on above: Performed By: #### G FR, TROPHS, ADIFF, AMM, MDW, CAROL ANN, ACETA, PRO, CMP, ANEU, APTT, ALC, CBC, VBG #### [place] [address] Benzodiazepine (u) Negative Normal Negative [facility] Comment on above: Performed By: #### G FR, TROPHS, ADIFF, AMM, MDW, CAROL ANN, ACETA, PRO, CMP, ANEU, APTT, ALC, CBC, VBG #### [place] [address] Cannabinoid (u) Negative Normal Negative [facility] Comment on above: Performed By: #### G FR, TROPHS, ADIFF, AMM, MDW, CAROL ANN, ACETA, PRO, CMP, ANEU, APTT, ALC, CBC, VBG #### [address] [address] Cocaine Ql (U) Negative Normal Negative [facility] Comment on above: Performed By: #### G FR, TROPHS, ADYOVANI, AMNithin, JYOTHI, CAROL ANN, ACETA, PRO, CMP, ANEU, APTT, ALC, CBC, VBG #### [place] [address] Methadone Ql (U) Negative Normal Negative [facility] Comment on above: Performed By: #### G , TROPHS, ADYOVANI, AMNithin, JYOTHI, CAROL ANN, ACETA, PRO, CMP, ANEU, APTT, ALC, CBC, VBG #### [place] [address] Opiate (u) Negative Normal Negative [facility] Comment on above: Performed By: #### G , TROPHS, ADYOVANI, AMNithin, JYOTHI, CAROL ANN, ACETA, PRO, CMP, ANEU, APTT, ALC, CBC, VBG #### [place] [address] PCP (u) Negative Normal Negative [facility] Comment on above: Performed By: #### G , TROPHS, ADYOVAIN, AMNithin, JYOTHI, CAROL ANN, ACETA, PRO, CMP, ANEU, APTT, ALC, CBC, VBG #### [place] [address] Urine Drugs screened: See Below Normal [facility] Comment on above: Result Comment: This drug screen is a presumptive screening only. No confirmation will be performed unless requested. Drugs screened include: Threshold Amphetamines/Methamphetamines 1,000 ng/mL Barbiturates 200 ng/mL Benzodiazepine metabolites 200 ng/mL Cannabinoids (THC metabolites) 50 ng/mL Cocaine 300 ng/mL Opiates 300 ng/mL Methadone 300 ng/mL Phencyclidine (PCP) 25 ng/mL Testing has been performed FOR MEDICAL PURPOSES ONLY. Performed By: #### G FR, TROPHS, ADIFF, AMNithin, W, CAROL ANN, ACETA, PRO, CMP, ANEU, APTT, ALC, CBC, VBG #### [address] [address] VBGon 03-04-2025 BE Venous -0.3 mmol/L Normal -3.0-3.0 [facility] Comment on above: Performed By: #### G FR, TROPHS, ADIFF, AMM, MDW, CAROL ANN, ACETA, PRO, CMP, ANEU, APTT, ALC, CBC, VBG #### [address] [address] CO2 [Moles/Vol] 22.9 mmol/L Normal 22.0-32.0 [facility] Comment on above: Performed By: #### G FR, TROPHS, ADIFF, AMM, MDW, CAROL ANN, ACETA, PRO, CMP, ANEU, APTT, ALC, CBC, VBG #### [place] [phone] HCO3 (Bld) [Moles/Vol] 22.0 mmol/L Normal 21.0-30.0 [facility] Comment on above: Performed By: #### G FR, TROPHS, ADYOVANI, AMNithin, MDW, CAROL ANN, ACETA, PRO, CMP, ANEU, APTT, ALC, CBC, VBG #### [address] [id number] Oxygen saturation in Blood 92.6 % High 70.0-75.0 [facility] Comment on above: Performed By: #### G FR, TROPHS, ADIFF, AMM, MDW, CAROL ANN, ACETA, PRO, CMP, ANEU, APTT, ALC, CBC, VBG #### [address] [address] pCO2 Scotty 30.5 mmHg Low 41.0-51.0 [facility] Comment on above: Performed By: #### G FR, TROPHS, ADIFF, AMM, MDW, CAROL ANN, ACETA, PRO, CMP, ANEU, APTT, ALC, CBC, VBG #### [place] [id number] pH Venous 7.476 High 7.380-7.460 [facility] Comment on above: Performed By: #### G FR, TROPHS, RACHANA, SUSY, JYOTHI, CAROL ANN, ACETA, PRO, CMP, ANEU, APTT, ALC, CBC, VBG #### [facility] [address] [place], [place] [address] pO2 Scotty 62.4 mmHg High 35.0-40.0 [facility] Comment on above: Performed By: #### G FR, TROPHS, RACHANA, SUSY, W, CAROL ANN, ACETA, PRO, CMP, ANEU, APTT, ALC, CBC, VBG #### [facility] [address] [place], [place] [address] XR CHEST 1 VIEWon 03-04-2025 XR CHEST 1 VIEW ORIGINAL HISTORY: Chest pain COMPARISON: 28 May 2023 FINDINGS: There are mild streaky airspace opacities in the lung bases. There is questionable mild hazy opacification in the left lung; this may be soft tissue artifact. Pulmonary vasculature is unremarkable in appearance. IMPRESSION: Mild left atelectasis; mild left artifact versus faint hazy airspace disease. Interpreted by: Garcia Nielson MD Preliminary Report By: Garcia Nielson MD Electronically signed By Garcia Nielson MD Dictated Date: 03/04/2025 12:09:28 PM Prelim Date: 03/04/2025 12:10:23 PM Sign Date: 03/04/2025 12:10:23 PM Ordering Provider: MOLINA Pepe [facility] .Auto Diffon 11-20-2024 Basophil, Absolute 0.1 10 3/mcL Normal 0.0-0.2 [facility] Comment on above: Performed By: #### A FABIÁN, FT4, TSH, CBC, ADIFF ####[facility] [place], [place] [address] Basophils/100 WBC (Bld) 0.7 % Normal 0.0-2.5 [facility] Comment on above: Performed By: #### A FABIÁN, FT4, TSH, CBC, ADIFF ####[facility] [place], [place] [address] Eosinophil, Absolute 0.2 10 3/mcL Normal 0.0-0.7 [facility] Comment on above: Performed By: #### A FABIÁN, FT4, TSH, CBC, ADIFF ####[address] [address] Eosinophils/100 WBC (Bld) 2.0 % Normal 0.0-7.0 [facility] Comment on above: Performed By: #### A FABIÁN, FT4, TSH, CBC, ADIFF ####[address] [address] Lymphocyte, Absolute 3.2 10 3/mcL Normal 0.9-4.3 [facility] Comment on above: Performed By: #### A FABIÁN, FT4, TSH, CBC, ADIFF ####[address] [address] Lymphocytes/100 WBC (Bld) 35.2 % Normal 20.0-40.0 [facility] Comment on above: Performed By: #### A FABIÁN, FT4, TSH, CBC, ADIFF ####[address] [address] Monocyte, Absolute 0.6 10 3/mcL Normal 0.1-1.4 [facility] Comment on above: Performed By: #### A FABIÁN, FT4, TSH, CBC, ADIFF ####[address] [address] Monocytes/100 WBC (Bld) 6.7 % Normal 2.0-13.0 [facility] Comment on above: Performed By: #### A FABIÁN, FT4, TSH, CBC, ADIFF ####[address] [address] Neutrophils/100 WBC (Bld) 55.4 % Normal 50.0-75.0 [facility] Comment on above: Performed By: #### A FABIÁN, FT4, TSH, CBC, ADIFF ####[address] [address] .NEUABSon 11-20-2024 Neutrophil, Absolute 5.0 10 3/mcL Normal 2.3-8.1 [facility] Comment on above: Performed By: #### A FABIÁN, FT4, TSH, CBC, ADIFF ####[address] [address] CBCon 11-20-2024 Erythrocyte distribution width (RBC) [Ratio] 13.5 % Normal 11.5-15.5 [facility] Comment on above: Performed By: #### A FABIÁN, FT4, TSH, CBC, ADIFF ####[address] [address] Hematocrit (Bld) [Volume fraction] 44.0 % Normal 34.0-46.0 [facility] Comment on above: Performed By: #### A FABIÁN, FT4, TSH, CBC, ADIFF ####[address] [address] Hgb 15.4 G/dL Normal 12.0-16.0 [facility] Comment on above: Performed By: #### A FABIÁN, FT4, TSH, CBC, ADIFF ####[address] [address] MCH (RBC) [Entitic mass] 32.2 pg Normal 27.0-33.0 [facility] Comment on above: Performed By: #### A FABIÁN, FT4, TSH, CBC, ADIFF ####[address] [address] MCHC 34.9 G/dL Normal 32.0-36.0 [facility] Comment on above: Performed By: #### A FABIÁN, FT4, TSH, CBC, ADIFF ####[address] [address] MCV (RBC) [Entitic vol] 92.0 fL Normal 80.0-99.0 [facility] Comment on above: Performed By: #### A FABIÁN, FT4, TSH, CBC, ADIFF ####[address] [address] Platelet 223 10 3/mcL Normal 150-450 [facility] Comment on above: Performed By: #### A FABIÁN, FT4, TSH, CBC, ADIFF ####[place] [address] Platelet mean volume (Bld) [Entitic vol] 8.2 fL Normal 6.6-10.5 [facility] Comment on above: Performed By: #### A FABIÁN, FT4, TSH, CBC, ADIFF ####[place] [address] RBC 4.79 10 6/mcL Normal 4.10-5.30 [facility] Comment on above: Performed By: #### A FABIÁN, FT4, TSH, CBC, ADIFF ####[place] [address] WBC 9.0 10 3/mcL Normal 4.5-10.8 [facility] Comment on above: Performed By: #### A FABIÁN, FT4, TSH, CBC, ADIFF ####[place] [id number] FT4on 11-20-2024 Free T4 [Mass/Vol] 0.85 ng/dL Normal 0.76-1.46 [facility] Comment on above: Performed By: #### G FR, TROPHS, ADIFF, AMM, MDW, CAROL ANN, ACETA, PRO, CMP, ANEU, APTT, ALC, CBC, VBG #### [address] [address] LABORATORYOrdered By: SYSTEM SYSTEM on 11-20-2024 Basophils (Bld) [#/Vol] 0.1 103/mcL Normal 0.0 - 0.2 10^3/mcL AO Workflow SS Basophils/100 WBC (Bld) 0.7 % Normal 0.0 - 2.5 % AO Workflow SS Eosinophil, Absolute 0.2 103/mcL Normal 0.0 - 0 .7 10^3/mcL AO Workflow SS Eosinophils/100 WBC (Bld) 2.0 % Normal 0.0 - 7.0 % AO Workflow SS Erythrocyte distribution width (RBC) [Ratio] 13.5 % Normal 11.5 - 15.5 % AO Workflow SS Free T4 [Mass/Vol] 0.85 ng/dL Normal 0.76 - 1. 46 ng/dL AO ADM SS Hematocrit (Bld) [Volume fraction] 44.0 % Normal 34.0 - 46.0 % AO Workflow SS Hemoglobin (Bld) [Mass/Vol] 15.4 G/dL Normal 12.0 - 16.0 G/dL AO Workflow SS Lymphocytes (Bld) [#/Vol] 3.2 103/mcL Normal 0.9 - 4.3 10^3/mcL AO Workflow SS Lymphocytes/100 WBC (Bld) 35.2 % Normal 20.0 - 40.0 % AO Workflow SS MCH (RBC) [Entitic mass] 32.2 pg Normal 27.0 - 33.0 pg AO Workflow SS MCHC 34.9 G/dL Normal 32.0 - 36.0 G/dL AO Workflow SS MCV (RBC) [Entitic vol] 92.0 fL Normal 80.0 - 99.0 fL AO Workflow SS Monocytes (Bld) [#/Vol] 0.6 103/mcL Normal 0.1 - 1.4 10^3/mcL AO Workflow SS Monocytes/100 WBC (Bld) 6.7 % Normal 2.0 - 13.0 % AO Workflow SS Neutrophils (Bld) [#/Vol] 5.0 103/mcL Normal 2.3 - 8.1 10^3/mcL AO Workflow SS Neutrophils/100 WBC (Bld) 55.4 % Normal 50.0 - 75.0 % AO Workflow SS Platelet mean volume (Bld) [Entitic vol] 8.2 fL Normal 6.6 - 10.5 fL AO Workflow SS Platelets (Bld) [#/Vol] 223 103/mcL Normal 150 - 450 10^3/mcL AO Workflow SS RBC (Bld) [#/Vol] 4.79 106/mcL Normal 4.10 - 5.3 0 10^6/mcL AO Workflow SS TSH Qn 2.02 m[IU]/L Normal 0.36 - 3.74 mcIU/mL AO ADM SS WBC (Bld) [#/Vol] 9.0 103/mcL Normal 4.5 - 10.8 10^3/mcL AO Workflow SS TSHon 11-20-2024 TSH Qn 2.02 m[IU]/L Normal 0.36-3.74 [facility] Comment on above: Performed By: #### A FABIÁN, FT4, TSH, CBC, ADIFF ####[facility] [place], [place] [address] No Panel Informationon 08-14 Culture Urine 10,000 - 50,000 cfu/ ml Multiple bacterial morphotypes present. Probable Contamination. Suggest recollection if clinically indicated. [facility] Work Phone: XR HIP BILATERAL W/PELVIS MD NIMUM 5 VIEWSon 06-27-2024 XR HIP BILATERAL W/PELVIS MINIMUM 5 VIEWS ORIGINAL EXAMINATION: ONE XRAY VIEW OF THE PELVIS AND TWO XRAY VIEWS OF EACH OF THE BILATERAL HIPS 06/26/2024 6:11 pm COMPARISON: None. HISTORY: ORDERING SYSTEM PROVIDED HISTORY: Reason for Exam: Bilateral hip and leg pain. FINDINGS: The pelvis shows no sign of fracture or aggressive osseous lesion. The sacroiliac joints and pubic symphysis have normal alignment. Both hips demonstrate mild joint space narrowing and marginal osteophytic spur formation of the acetabulum. Femoral heads are normal in contour. There is no evidence of avascular necrosis. Trochanteric region is unremarkable. No periarticular calcifications are present. IMPRESSION: Mild osteoarthritis of both hips. Interpreted by: Jose Daniel Hutchinson MD Preliminary Report By: Jose Daniel Hutchinson MD Electronically signed By Jose Daniel Hutchinson MD Dictated Date: 06/27/2024 12:39:49 AM Prelim Date: 06/27/2024 12:42:29 AM Sign Date: 06/27/2024 12:42:29 AM Ordering Provider: JULIO CESAR Pepe [facility] ([place]) XR SPINE LUMBAR LATERAL/FLEX /EXTon 06-27-2024 XR SPINE LUMBAR LATERAL/FLEX/EXT ORIGINAL EXAMINATION: 5 XRAY VIEWS OF THE LUMBAR SPINE including flexion and extension views 06/26/2024 6:12 pm COMPARISON: MRI of the lumbar spine on 06/01/2024 HISTORY: ORDERING SYSTEM PROVIDED HISTORY: Reason for Exam: pain Low back pain radiating into both legs. FINDINGS: There are 5 lumbar vertebrae. The lumbar spine alignment is normal. There is no abnormal motion with flexion and extension. The vertebral bodies are normal in height with no fracture. There is moderately severe degenerative disc disease at L4-L5 and L5-S1 with disc space narrowing, vacuum disc phenomenon and endplate osteophytosis. There is mild degenerative narrowing of other disc spaces. The facet joints show mild degenerative narrowing and spur formation greatest at L4-L5 and L5-S1. There is no evidence of spondylolysis. The sacroiliac joints are normal. IMPRESSION: Moderate lumbar spondylosis, greatest at L4-L5 and L5-S1. Normal alignment with no evidence of instability. Interpreted by: Jose Daniel Hutchinson MD Preliminary Report By: Jose Daniel Hutchinson MD Electronically signed By Jose Daniel Hutchinson MD Dictated Date: 06/27/2024 12:42:38 AM Prelim Date: 06/27/2024 12:45:34 AM Sign Date: 06/27/2024 12:45:34 AM Ordering Provider: JULIO CESAR Pepe [facility] ([place]) .Auto Diffon 06-26-2024 Basophil, Absolute 0.1 10 3/mcL Normal 0.0-0.2 [facility] ([place]) Comment on above: Performed By: #### A DIFF, ESR, A1C, TSHR, FT4, CBC, GFR, ANEU, URIC, CMP, LIPID, VIDH #### [address] [address] #### CRPHS, B12 #### [address] [address] Basophils/100 WBC (Bld) 0.4 % Normal 0.0-2.5 [facility] ([place]) Comment on above: Performed By: #### A DIFF, ESR, A1C, TSHR, FT4, CBC, GFR, ANEU, URIC, CMP, LIPID, VIDH #### [address] [address] #### CRPHS, B12 #### [address] [address] Eosinophil, Absolute 0.2 10 3/mcL Normal 0.0-0.4 [facility] ([place]) Comment on above: Performed By: #### A DIFF, ESR, A1C, TSHR, FT4, CBC, GFR, ANEU, URIC, CMP, LIPID, VIDH #### [address] [address] #### CRPHS, B12 #### [address] [address] Eosinophils/100 WBC (Bld) 1.2 % Normal 0.0-7.0 [facility] ([place]) Comment on above: Performed By: #### A DIFF, ESR, A1C, TSHR, FT4, CBC, GFR, ANEU, URIC, CMP, LIPID, VIDH #### [address] [address] #### CRPHS, B12 #### [address] [address] Lymphocyte, Absolute 5.9 10 3/mcL High 0.8-3.9 [facility] ([place]) Comment on above: Performed By: #### A DIFF, ESR, A1C, TSHR, FT4, CBC, GFR, ANEU, URIC, CMP, LIPID, VIDH #### [place] [address] #### CRPHS, B12 #### [address] [address] Lymphocytes/100 WBC (Bld) 45.7 % Normal 10.0-50.0 [facility] ([place]) Comment on above: Performed By: #### A DIFF, ESR, A1C, TSHR, FT4, CBC, GFR, ANEU, URIC, CMP, LIPID, VIDH #### [address] [address] #### CRPHS, B12 #### [address] [address] Monocyte, Absolute 1.1 10 3/mcL High 0.2-1.0 [facility] ([place]) Comment on above: Performed By: #### A DIFF, ESR, A1C, TSHR, FT4, CBC, GFR, ANEU, URIC, CMP, LIPID, VIDH #### [address] [address] #### CRPHS, B12 #### [address] [address] Monocytes/100 WBC (Bld) 8.1 % Normal 1.7-13.0 [facility] ([place]) Comment on above: Performed By: #### A DIFF, ESR, A1C, TSHR, FT4, CBC, GFR, ANEU, URIC, CMP, LIPID, VIDH #### [place] [address] [address] #### CRPHS, B12 #### [address] [address] Neutrophils/100 WBC (Bld) 44.6 % Normal 37.0-80.0 [facility] ([place]) Comment on above: Performed By: #### A DIFF, ESR, A1C, TSHR, FT4, CBC, GFR, ANEU, URIC, CMP, LIPID, VIDH #### [address] [address] #### CRPHS, B12 #### [address] [address] .GFRon 06-26-2024 GFR Non- 74 ml/min/1.73sqm Normal [facility] ([place]) Comment on above: Result Comment: GFR Population mean for , Non- Americans Ages 20-29 = 116 mL/min/1.73 sq.m. Ages 30-39 = 107 mL/min/1.73 sq.m. Ages 40-49 = 99 mL/min/1.73 sq.m. Ages 50-59 = 93 mL/min/1.73 sq.m. Ages 60-69 = 85 mL/min/1.73 sq.m. Ages 70+ = 75 mL/min/1.73 sq.m. Chronic Kidney Disease: Less than 60 mL/min/1.73 square meters End Stage Renal Disease: Less than 15 mL/min/1.73 square meters Performed By: #### A DIFF, ESR, A1C, TSHR, FT4, CBC, GFR, ANEU, URIC, CMP, LIPID, VIDH ####[address] [place], [place] [address]#### CRPHS, B12 ####[address] [address] GFR 89 ml/min/1.73sqm Normal [facility] ([place]) Comment on above: Result Comment: GFR Population mean for , Non- Americans Ages 20-29 = 116 mL/min/1.73 sq.m. Ages 30-39 = 107 mL/min/1.73 sq.m. Ages 40-49 = 99 mL/min/1.73 sq.m. Ages 50-59 = 93 mL/min/1.73 sq.m. Ages 60-69 = 85 mL/min/1.73 sq.m. Ages 70+ = 75 mL/min/1.73 sq.m. Chronic Kidney Disease: Less than 60 mL/min/1.73 square meters End Stage Renal Disease: Less than 15 mL/min/1.73 square meters Performed By: #### A DIFF, ESR, A1C, TSHR, FT4, CBC, GFR, ANEU, URIC, CMP, LIPID, VIDH ####[address] [address]#### JASON, B12 ####[address] [address] .NEUABSon 06-26-2024 Neutrophil, Absolute 5.8 10 3/mcL Normal 2.9-6.2 [facility] ([place]) Comment on above: Performed By: #### A DIFF, ESR, A1C, TSHR, FT4, CBC, GFR, ANEU, URIC, CMP, LIPID, VIDH #### [address] [address] #### CRP, B12 #### [address] [address] A1Con 06-26-2024 Glucose [Mass/Vol] 88 mg/dL Normal [facility] ([place]) Comment on above: Result Comment: Chasity mated Average Glucose calculated by equation ((28.7xA1C)-46.7) Estimated average glucose (eAG) is a calculated value from Hemoglobin A1C and is architectural representative of the average blood glucose level in the last 2-3 month period. Normal range: less than 114 mg/dL Performed By: #### A DIFF, ESR, A1C, TSHR, FT4, CBC, GFR, ANEU, URIC, CMP, LIPID, VIDH #### [address] [address] #### CRPHS, B12 #### [address] [address] HbA1c (Bld) [Mass fraction] 4.7 % Normal 4.3-6.4 [facility] ([place]) Comment on above: Performed By: #### A DIFF, ESR, A1C, TSHR, FT4, CBC, GFR, ANEU, URIC, CMP, LIPID, VIDH #### [address] [address] #### CRPHS, B12 #### [address] [address] B12on 06-26-2024 Cobalamin (Vitamin B12) [Mass/Vol] 315 pg/mL Normal 211-911 [facility] ([place]) Comment on above: Performed By: #### A DIFF, ESR, A1C, TSHR, FT4, CBC, GFR, ANEU, URIC, CMP, LIPID, VIDH ####[place] [address]#### CRPHS, B12 ####[address] [address] CBCon 06-26-2024 Erythrocyte distribution width (RBC) [Ratio] 13.5 % Normal 11.5-14.5 [facility] ([place]) Comment on above: Performed By: #### A DIFF, ESR, A1C, TSHR, FT4, CBC, GFR, ANEU, URIC, CMP, LIPID, VIDH #### [place] [id number] #### CRPHS, B12 #### [address] [address] Hematocrit (Bld) [Volume fraction] 41.3 % Normal 37.0-47.0 [facility] ([place]) Comment on above: Performed By: #### A DIFF, ESR, A1C, TSHR, FT4, CBC, GFR, ANEU, URIC, CMP, LIPID, VIDH #### [address] [address] #### CRPHS, B12 #### [address] [address] Hgb 14.5 G/dL Normal 12.0-16.0 [facility] ([place]) Comment on above: Performed By: #### A DIFF, ESR, A1C, TSHR, FT4, CBC, GFR, ANEU, URIC, CMP, LIPID, VIDH #### [address] [address] #### CRPHS, B12 #### [address] [address] MCH (RBC) [Entitic mass] 32.9 pg High 27.0-31.2 [facility] ([place]) Comment on above: Performed By: #### A DIFF, ESR, A1C, TSHR, FT4, CBC, GFR, ANEU, URIC, CMP, LIPID, VIDH #### [address] [address] #### CRPHS, B12 #### [place] [address] MCHC 35.1 G/dL Normal 33.0-37.0 [facility] ([place]) Comment on above: Performed By: #### A DIFF, ESR, A1C, TSHR, FT4, CBC, GFR, ANEU, URIC, CMP, LIPID, VIDH #### [address] [address] #### CRPHS, B12 #### [address] [address] MCV (RBC) [Entitic vol] 93.7 fL Normal 80.0-94.0 [facility] ([place]) Comment on above: Performed By: #### A DIFF, ESR, A1C, TSHR, FT4, CBC, GFR, ANEU, URIC, CMP, LIPID, VIDH #### [address] [address] #### CRPHS, B12 #### [place] [address] Platelet 231 10 3/mcL Normal 130-400 [facility] ([place]) Comment on above: Performed By: #### A DIFF, ESR, A1C, TSHR, FT4, CBC, GFR, ANEU, URIC, CMP, LIPID, VIDH #### [address] [address] #### CRPHS, B12 #### [place] [address] Platelet mean volume (Bld) [Entitic vol] 7.7 fL Normal 7.4-10.4 [facility] ([place] Comment on above: Performed By: #### A DIFF, ESR, A1C, TSHR, FT4, CBC, GFR, ANEU, URIC, CMP, LIPID, VIDH #### [place] [address] #### CRPHS, B12 #### [place] [address] RBC 4.41 10 6/mcL Normal 4.20-5.40 [facility] ([place] Comment on above: Performed By: #### A DIFF, ESR, A1C, TSHR, FT4, CBC, GFR, ANEU, URIC, CMP, LIPID, VIDH #### [place] [address] #### CRPHS, B12 #### [place] [address] WBC 13.0 10 3/mcL High 4.6-10.8 [facility] ([place]) Comment on above: Performed By: #### A DIFF, ESR, A1C, TSHR, FT4, CBC, GFR, ANEU, URIC, CMP, LIPID, VIDH #### [place] [address] #### CRPHS, B12 #### [place] [address] CMPon 06-26-2024 Albumin Level 3.8 G/dL Normal 3.4-4.8 [facility] ([place]) Comment on above: Performed By: #### A DIFF, ESR, A1C, TSHR, FT4, CBC, GFR, ANEU, URIC, CMP, LIPID, VIDH #### [place] [address] #### CRPHS, B12 #### [address] [address] Albumin/Globulin [Mass ratio] 1.2 {ratio} Normal 1.1-2.5 [facility] ([place]) Comment on above: Performed By: #### A DIFF, ESR, A1C, TSHR, FT4, CBC, GFR, ANEU, URIC, CMP, LIPID, VIDH #### [address] [address] #### CRPHS, B12 #### [address] [address] ALP [Catalytic activity/Vol] 112 U/L Normal 40-135 [facility] ([place]) Comment on above: Performed By: #### A DIFF, ESR, A1C, TSHR, FT4, CBC, GFR, ANEU, URIC, CMP, LIPID, VIDH #### [address] [address] #### CRPHS, B12 #### [address] [address] ALT [Catalytic activity/Vol] 23 U/L Normal 14-59 [facility] ([place]) Comment on above: Performed By: #### A DIFF, ESR, A1C, TSHR, FT4, CBC, GFR, ANEU, URIC, CMP, LIPID, VIDH #### [address] [address] #### CRPHS, B12 #### [address] [address] AST [Catalytic activity/Vol] 16 U/L Normal 10-40 [facility] ([place]) Comment on above: Performed By: #### A DIFF, ESR, A1C, TSHR, FT4, CBC, GFR, ANEU, URIC, CMP, LIPID, VIDH #### [address] [address] #### CRPHS, B12 #### [address] [address] Bili Total 0.2 mg/dL Normal 0.2-1.0 [facility] ([place]) Comment on above: Result Comment: Use of this assay is not recommended for patients undergoing treatment with eltrombopag due to the potential for falsely elevated results. Performed By: #### A DIFF, ESR, A1C, TSHR, FT4, CBC, GFR, ANEU, URIC, CMP, LIPID, VIDH #### [address] [address] #### CRPHS, B12 #### [address] [address] BUN/Creatinine Ratio 15 ratio Normal 7-27 [facility] ([place]) Comment on above: Performed By: #### A DIFF, ESR, A1C, TSHR, FT4, CBC, GFR, ANEU, URIC, CMP, LIPID, VIDH #### [place] [address] #### CRPHS, B12 #### [address] [address] Calcium [Mass/Vol] 9.5 mg/dL Normal 8.4-10.2 [facility] ([place]) Comment on above: Performed By: #### A DIFF, ESR, A1C, TSHR, FT4, CBC, GFR, ANEU, URIC, CMP, LIPID, VIDH #### [place] [address] #### CRPHS, B12 #### [address] [address] Chloride [Moles/Vol] 105 mmol/L Normal 98-107 [facility] ([place]) Comment on above: Performed By: #### A DIFF, ESR, A1C, TSHR, FT4, CBC, GFR, ANEU, URIC, CMP, LIPID, VIDH #### [address] [address] #### CRPHS, B12 #### [address] [address] CO2 [Moles/Vol] 33 mmol/L High 23-31 [facility] ([place]) Comment on above: Performed By: #### A DIFF, ESR, A1C, TSHR, FT4, CBC, GFR, ANEU, URIC, CMP, LIPID, VIDH #### [address] [address] #### CRPHS, B12 #### [address] [address] Creatinine [Mass/Vol] 0.79 mg/dL Normal 0.55-1.02 [facility] ([place]) Comment on above: Performed By: #### A DIFF, ESR, A1C, TSHR, FT4, CBC, GFR, ANEU, URIC, CMP, LIPID, VIDH #### [place] [address] #### CRPHS, B12 #### [address] [address] Electrolyte Balance 10.0 mEq/L Normal 4.0-15.0 [facility] ([place]) Comment on above: Performed By: #### A DIFF, ESR, A1C, TSHR, FT4, CBC, GFR, ANEU, URIC, CMP, LIPID, VIDH #### [place] [address] #### CRPHS, B12 #### [address] [address] Globulin 3.2 G/dL Normal [facility] ([place]) Comment on above: Performed By: #### A DIFF, ESR, A1C, TSHR, FT4, CBC, GFR, ANEU, URIC, CMP, LIPID, VIDH #### [address] [address] #### CRPHS, B12 #### [address] [address] Glucose [Mass/Vol] 96 mg/dL Normal 80-115 [facility] ([place]) Comment on above: Performed By: #### A DIFF, ESR, A1C, TSHR, FT4, CBC, GFR, ANEU, URIC, CMP, LIPID, VIDH #### [address] [address] #### CRPHS, B12 #### [address] [address] Potassium [Moles/Vol] 3.8 mmol/L Normal 3.5-5.1 [facility] ([place]) Comment on above: Performed By: #### A DIFF, ESR, A1C, TSHR, FT4, CBC, GFR, ANEU, URIC, CMP, LIPID, VIDH #### [address] [address] #### CRPHS, B12 #### [address] [address] Sodium [Moles/Vol] 148 mmol/L High 136-145 [facility] ([place]) Comment on above: Performed By: #### A DIFF, ESR, A1C, TSHR, FT4, CBC, GFR, ANEU, URIC, CMP, LIPID, VIDH #### [address] [address] #### CRPHS, B12 #### [address] [address] Total Protein 7.0 G/dL Normal 6.4-8.2 [facility] ([place]) Comment on above: Performed By: #### A DIFF, ESR, A1C, TSHR, FT4, CBC, GFR, ANEU, URIC, CMP, LIPID, VIDH #### [address] [address] #### CRPHS, B12 #### [address] [address] Urea nitrogen [Mass/Vol] 12 mg/dL Normal 7-18 [facility] ([place]) Comment on above: Performed By: #### A DIFF, ESR, A1C, TSHR, FT4, CBC, GFR, ANEU, URIC, CMP, LIPID, VIDH #### [address] [address] #### CRPHS, B12 #### [address] [address] CRPHSon 06-26-2024 CRP, High Sensitive 0.48 mg/L Normal 0.20-3.00 [facility] ([place]) Comment on above: Result Comment: Rela tive Risk Category and Average hs-CRP Level: Higher Risk: > 5.0 mg/L Guidelines support that hs-CRP can be used as an independent predictor of increased coronary risk; however, hs-CRP results should only be interpreted in conjunction with other cardiac risk factors in establishing overall cardiac risk for a given patient. Performed By: #### A DIFF, ESR, A1C, TSHR, FT4, CBC, GFR, ANEU, URIC, CMP, LIPID, VIDH ####[place] [id number]#### CRPHS, B12 ####[place] [address] ESRon 06-26-2024 Erythrocyte Sed Rate 5 mm/hr Normal 0-30 [facility] ([place]) Comment on above: Performed By: #### A DIFF, ESR, A1C, TSHR, FT4, CBC, GFR, ANEU, URIC, CMP, LIPID, VIDH #### [address] [address] #### JASONHS, B12 #### [place] [address] FT4on 06-26-2024 Free T4 [Mass/Vol] 0.98 ng/dL Normal 0.76-1.46 [facility] ([place]) Comment on above: Order Comment: Order ed by Discern Performed By: #### A DIFF, ESR, A1C, TSHR, FT4, CBC, GFR, ANEU, URIC, CMP, LIPID, VIDH ####[address] [address]#### CRPHS, B12 ####[place] [address] LABORATORYOrdered By: SYSTEM SYSTEM on 06-26-2024 25-hydroxyvitamin D3 [Mass/Vol] 14.7 ng/mL Invalid Interpretation Code AO ADM SS Comment on above: Interpretive Data: I nterpretive Values Based on Total 25(OH) Vitamin D: Deficient <20 ng/mL Insufficient 20 - <30 ng/mL Sufficient 30-100 ng/mL Albumin BCP dye [Mass/Vol] 3.8 G/dL Normal 3.4 - 4.8 G/dL AO ADM SS Albumin/Globulin [Mass ratio] 1.2 {ratio} Normal 1.1 - 2.5 ratio AO ADM SS ALP [Catalytic activity/Vol] 112 U/L Normal 40 - 135 U/L AO ADM SS ALT With P-5'-P [Catalytic activity/Vol] 23 U/L Normal 14 - 59 U/L AO ADM SS AST With P-5'-P [Catalytic activity/Vol] 16 U/L Normal 10 - 40 U/L AO ADM SS Basophil, Absolute 0.1 103/mcL Normal 0.0 - 0.2 10^3/mcL AO Workflow SS Basophils/100 WBC (Bld) 0.4 % Normal 0.0 - 2.5 % AO Workflow SS Bilirubin [Mass/Vol] 0.2 mg/dL Normal 0.2 - 1 .0 mg/dL AO ADM SS Comment on above: Interpretive Data: U se of this assay is not recommended for patients undergoing treatment with eltrombopag due to the potential for falsely elevated results. Calcium [Mass/Vol] 9.5 mg/dL Normal 8.4 - 10. 2 mg/dL AO ADM SS Chloride [Moles/Vol] 105 mmol/L Normal 98 - 10 7 mmol/L AO ADM SS CO2 [Moles/Vol] 33 mmol/L High 23 - 31 mmol/L AO ADM SS Cobalamin (Vitamin B12) [Mass/Vol] 315 pg/mL Normal 211 - 911 pg/mL AH ADM SS Creatinine [Mass/Vol] 0.79 mg/dL Normal 0.55 - 1.02 mg/dL AO ADM SS CRP High sensitivity method [Mass/Vol] 0.48 mg/L Normal 0.20 - 3.00 mg/L AH ADM SS Comment on above: Interpretive Data: R elative Risk Category and Average hs-CRP Level: Higher Risk: > 5.0 mg/L Guidelines support that hs-CRP can be used as an independent predictor of increased coronary risk; however, hs-CRP results should only be interpreted in conjunction with other cardiac risk factors in establishing overall cardiac risk for a given patient. Electrolyte Balance 10.0 mEq/L Normal 4.0 - 15 .0 mEq/L AO ADM SS Eosinophil, Absolute 0.2 103/mcL Normal 0.0 - 0 .4 10^3/mcL AO Workflow SS Eosinophils/100 WBC (Bld) 1.2 % Normal 0.0 - 7.0 % AO Workflow SS Erythrocyte distribution width (RBC) [Ratio] 13.5 % Normal 11.5 - 14.5 % AO Workflow SS Free T4 [Mass/Vol] 0.98 ng/dL Normal 0.76 - 1. 46 ng/dL AO ADM SS GFR/1.73 sq M.predicted among blacks MDRD (S/P/Bld) [Vol rate/Area] 89 ml/min/1.73sqm Invalid Interpretation Code AO Chemistry S Comment on above: Interpretive Data: GFR Population mean for , Non- Americans Ages 20-29 = 116 mL/min/1.73 sq.m. Ages 30-39 = 107 mL/min/1.73 sq.m. Ages 40-49 = 99 mL/min/1.73 sq.m. Ages 50-59 = 93 mL/min/1.73 sq.m. Ages 60-69 = 85 mL/min/1.73 sq.m. Ages 70+ = 75 mL/min/1.73 sq.m. Chronic Kidney Disease: Less than 60 mL/min/1.73 square meters End Stage Renal Disease: Less than 15 mL/min/1.73 square meters GFR/1.73 sq M.predicted among non-blacks MDRD (S/P/Bld) [Vol rate/Area] 74 ml/min/1.73sqm Invalid Interpretation Code AO Chemistry S Comment on above: Interpretive Data: GFR Population mean for , Non- Americans Ages 20-29 = 116 mL/min/1.73 sq.m. Ages 30-39 = 107 mL/min/1.73 sq.m. Ages 40-49 = 99 mL/min/1.73 sq.m. Ages 50-59 = 93 mL/min/1.73 sq.m. Ages 60-69 = 85 mL/min/1.73 sq.m. Ages 70+ = 75 mL/min/1.73 sq.m. Chronic Kidney Disease: Less than 60 mL/min/1.73 square meters End Stage Renal Disease: Less than 15 mL/min/1.73 square meters Globulin 3.2 G/dL Invalid Interpretation Code AO ADM SS Glucose [Mass/Vol] 88 mg/dL Invalid Interpretation Code AO Chemistry S Comment on above: Interpretive Data: E stimated average glucose (eAG) is a calculated value from Hemoglobin A1C and is architectural representative of the average blood glucose level in the last 2-3 month period. Normal range: less than 114 mg/dL Glucose [Mass/Vol] 96 mg/dL Normal 80 - 115 mg/dL AO ADM SS HbA1c (Bld) [Mass fraction] 4.7 % Normal 4.3 - 6.4 % AO ADM SS Hematocrit (Bld) [Volume fraction] 41.3 % Normal 37.0 - 47.0 % AO Workflow SS Hemoglobin (Bld) [Mass/Vol] 14.5 G/dL Normal 12.0 - 16.0 G/dL AO Workflow SS Lymphocyte, Absolute 5.9 103/mcL High 0.8 - 3 .9 10^3/mcL AO Workflow SS Lymphocytes/100 WBC (Bld) 45.7 % Normal 10.0 - 50.0 % AO Workflow SS MCH (RBC) [Entitic mass] 32.9 pg High 27.0 - 31.2 pg AO Workflow SS MCHC 35.1 G/dL Normal 33.0 - 37.0 G/dL AO Workflow SS MCV (RBC) [Entitic vol] 93.7 fL Normal 80.0 - 94.0 fL AO Workflow SS Monocyte, Absolute 1.1 103/mcL High 0.2 - 1.0 10^3/mcL AO Workflow SS Monocytes/100 WBC (Bld) 8.1 % Normal 1.7 - 13.0 % AO Workflow SS Neutrophil, Absolute 5.8 103/mcL Normal 2.9 - 6 .2 10^3/mcL AO Workflow SS Neutrophils/100 WBC (Bld) 44.6 % Normal 37.0 - 80.0 % AO Workflow SS Platelet mean volume (Bld) [Entitic vol] 7.7 fL Normal 7.4 - 10.4 fL AO Workflow SS Platelets (Bld) [#/Vol] 231 103/mcL Normal 130 - 400 10^3/mcL AO Workflow SS Potassium [Moles/Vol] 3.8 mmol/L Normal 3.5 - 5.1 mmol/L AO ADM SS Protein [Mass/Vol] 7.0 G/dL Normal 6.4 - 8.2 G/dL AO ADM SS RBC (Bld) [#/Vol] 4.41 106/mcL Normal 4.20 - 5.4 0 10^6/mcL AO Workflow SS Sodium [Moles/Vol] 148 mmol/L High 136 - 145 mmol/L AO ADM SS TSH Qn 3.97 m[IU]/L High 0.36 - 3.74 mcIU/mL AO ADM SS Urea nitrogen [Mass/Vol] 12 mg/dL Normal 7 - 18 mg/dL AO ADM SS Urea nitrogen/Creatinine [Mass ratio] 15 ratio Normal 7 - 27 ratio AO ADM SS Uric Acid Lvl 4.3 mg/dL Normal 2.6 - 6.2 mg/dL AO ADM SS WBC (Bld) [#/Vol] 13.0 103/mcL High 4.6 - 10.8 10^3/mcL AO Workflow SS LABORATORYOrdered By: Marylou Novak on 06-26-2024 Cholesterol [Mass/Vol] 239 mg/dL High 0 - 2 00 mg/dL AO ADM SS Comment on above: Interpretive Data: C holesterol Reference Interval: Less than 200 Desirable 200-239 Borderline high risk 240 and above High risk Cholesterol in HDL [Mass/Vol] 54 mg/dL Normal 40 - 60 mg/dL AO ADM SS Cholesterol in LDL [Mass/Vol] 117 mg/dL Normal 0 - 130 mg/dL AO ADM SS Triglyceride [Mass/Vol] 342 mg/dL High 0 - 150 mg/dL AO ADM SS Comment on above: Interpretive Data: T riglyceride Reference Interval: Less than 150 Normal 150-199 Borderline high risk 200-499 High risk 500 or higher Very high risk LABORATORYOrdered By: Mick Piedra on 06-26-2024 ESR Photometric method (Bld) [Velocity] 5 mm/hr Normal 0 - 30 mm/hr AO Man Heme SS LIPIDon 06-26-2024 Cholesterol [Mass/Vol] 239 mg/dL High 0-200 [facility] ([place]) Comment on above: Result Comment: Chol esterol Reference Interval: Less than 200 Desirable 200-239 Borderline high risk 240 and above High risk Performed By: #### A DIFF, ESR, A1C, TSHR, FT4, CBC, GFR, ANEU, URIC, CMP, LIPID, VIDH ####[address] [place], [place] [address]#### CRPHS, B12 ####[address] [address] Cholesterol in HDL [Mass/Vol] 54 mg/dL Normal 40-60 [facility] ([place]) Comment on above: Performed By: #### A DIFF, ESR, A1C, TSHR, FT4, CBC, GFR, ANEU, URIC, CMP, LIPID, VIDH ####[address] [address]#### GUSTAVO, B12 ####[address] [address] Cholesterol in LDL [Mass/Vol] 117 mg/dL Normal 0-130 [facility] ([place]) Comment on above: Performed By: #### A DIFF, ESR, A1C, TSHR, FT4, CBC, GFR, ANEU, URIC, CMP, LIPID, VIDH ####[address] [address]#### GUSTAVO, B12 ####[place] [address] Triglyceride [Mass/Vol] 342 mg/dL High 0-150 [facility] ([place]) Comment on above: Result Comment: Trig lyceride Reference Interval: Less than 150 Normal 150-199 Borderline high risk 200-499 High risk 500 or higher Very high risk Performed By: #### A DIFF, ESR, A1C, TSHR, FT4, CBC, GFR, ANEU, URIC, CMP, LIPID, VIDH ####[place] [address]#### GUSTAVO, B12 ####[place] [address] TSHRon 06-26-2024 TSH Qn 3.97 m[IU]/L High 0.36-3.74 [facility] ([place]) Comment on above: Performed By: #### A DIFF, ESR, A1C, TSHR, FT4, CBC, GFR, ANEU, URIC, CMP, LIPID, VIDH ####[address] [address]#### CRPHS, B12 ####[place] [address] URICon 06-26-2024 Uric Acid Lvl 4.3 mg/dL Normal 2.6-6.2 [facility] ([place]) Comment on above: Performed By: #### A DIFF, ESR, A1C, TSHR, FT4, CBC, GFR, ANEU, URIC, CMP, LIPID, VIDH #### [address] [address] #### CRPHS, B12 #### [address] [address] VIDHon 06-26-2024 Vit. D 25-Hydroxy 14.7 ng/mL Normal [facility] ([place]) Comment on above: Result Comment: Inte rpretive Values Based on Total 25(OH) Vitamin D: Deficient <20 ng/mL Insufficient 20 - <30 ng/mL Sufficient 30-100 ng/mL Performed By: #### A DIFF, ESR, A1C, TSHR, FT4, CBC, GFR, ANEU, URIC, CMP, LIPID, VIDH #### [address] [address] #### CRPHS, B12 #### [place] [address] MRI SPINE LUMBAR W/O CONTRAS Ton 06-01-2024 MRI SPINE LUMBAR W/O CONTRAST ORIGINAL EXAMINATION: MRI OF THE LUMBAR SPINE WITHOUT CONTRAST, 06/01/2024 3:04 pm TECHNIQUE: Multiplanar multisequence MRI of the lumbar spine was performed without the administration of intravenous contrast. COMPARISON: None. HISTORY: ORDERING SYSTEM PROVIDED HISTORY: Reason for Exam: back pain, constipation, numbness FINDINGS: BONES/ALIGNMENT: There is normal alignment of the spine. The vertebral body heights are maintained. T12 and L3 vertebral body hemangiomas. Schmorl's nodes at the inferior endplate of L2 and L3. Modic type 2 changes about the L5-S1 endplates.. SPINAL CORD: The conus terminates normally at T12 L1. SOFT TISSUES: . Tubal in paraspinal soft tissues are unremarkable. No acute abnormality within the included retroperitoneum. L1-L2: There is no significant disc herniation, spinal canal stenosis or neural foraminal narrowing. L2-L3: A diffuse disc bulge is appreciated with small posterior annular tear. Facet and ligamentum flavum hypertrophy are appreciated resulting in mild narrowing of the spinal canal. No significant neural foraminal stenosis. L3-L4: Mild diffuse disc bulge with ligamentum flavum and facet hypertrophy resulting in mild narrowing of the spinal canal. No significant neural foraminal stenosis. L4-L5: Diffuse disc bulge with ligamentum flavum and facet hypertrophy resulting in qbzg-[id number]-llensxld narrowing of the spinal canal, moderate bilateral lateral recess stenosis, and suspected contact of the descending L5 nerve roots bilaterally. Moderate bilateral neural foraminal stenoses. L5-S1: Small diffuse disc bulge with facet hypertrophy without significant narrowing of the spinal canal. Moderate right and moderate to severe left neural foraminal stenosis. IMPRESSION: 1. No evidence of acute abnormality or compression of the cauda equina. 2. Multilevel degenerative changes as described above without severe spinal canal or neural foraminal stenosis. Interpreted by: Ko Rutledge Preliminary Report By: Ko Rutledge Electronically signed By Ko Rutledge Dictated Date: 06/01/2024 3:06:34 PM Prelim Date: 06/01/2024 3:15:01 PM Sign Date: 06/01/2024 3:15:01 PM Ordering Provider: MAYI VILLALOBOS [facility] Special Stain Group IIon Special Stain Group II Patient Age/Sex Location Account Attending Physician JENI,VERO SHORT 63/F [facility] [id number] Dr. Kia Guallpa MD Specimen: [id number] Received: 03/03/24 Status: HENRIETTA Briggs Num: [id number] Spec Type: ASPIRATION Subm Dr: Dr. Kia Guallpa MD THIS IS A CORRECTED REPORT 03/16/24-0953 HEADER OPERATION: Bilateral thyroid Fine needle aspiration PRE-OP DIAGNOSIS: Thyroid nodules TISSUE SUBMITTED: A- Right thyroid slides, B- Left thyroid slides DIAGNOSIS CYTOLOGY A. Fine needle aspiration, right thyroid nodule (smears): Consistent with benign follicular nodule ([place] Category II). See comment. B. Fine needle aspiration left thyroid nodule (smears): Atypia of undetermined significance ([place] Category III). See comment. KATEY/ 03/04/24 COMMENT A The [place] System for thyroid diagnostic categorization was used in the evaluation of this case. B. Atypical spindle cells are present in background of benign follicular cells of thyroid origin. These atypical spindle cells may be extraneous to the thyroid gland. However, intrathyroidal spindle cell lesion can not be excluded. Clinical correlation is necessary. Per recommendations and a clinician-approved plan (a call was made to the referring doctor about the recommendation), genomic testing (Afirma) has been submitted. Results will be reported as an addendum and faxed to clinician. CYTOLOGY STUDY Slides are reviewed. CYTOLOGY GROSS A. Received are 8 smears labeled with the patient's name and designated per the requisition as Right thyroid slides. Submitted for staining. B. Received are 8 smears labeled with the patient's name and designated per the requisition as Left thyroid slides. Submitted for staining. Mr 03/04/2024 TC:? CPT: 61272 x2 Signed (signature on file) Dr. Hi De Anda, DO 03/16/24 1117 Normal [facility] Comment on above: Performed By: #### P SSII ####[facility] [address] [place], [place], [address] Surgery Visit Reporton 03-03 Surgery Visit Report [facility] [address] [place], [place] [address] OFFICE VISIT Date of Service: 03/03/24 MR#: [id number] Acct: [id number] Name: VERO NGO Rep #: [id number] 13 : 1960 Provider: Dr. Kia platt MD Age/Sex: 63/F Location: [facility] Status: Signed Intake Vital Signs 01/14/24 14:56 03/03/24 14:51 Height 5 ft 7 in 5 ft 7 in Weight: 190 lb BMI 29.7 BP 167/91 H Blood Pressure Location Rt brachial Position Sitting Respiration 18 Intake Visit Reasons: THYROID NODULE Chief Complaint: thyroid biopsy [employer] Required: No Is patient in pain?: No Allergies No Known Allergies Allergy (Verified 03/03/24 14:52) Medications amitriptyline 50 mg tablet 100 mg PO QHS 01/26/14 [History Confirmed 03/03/24] atorvastatin 80 mg tablet (Lipitor) 80 mg PO DAILY 07/16/18 [History Confirmed 03/03/24] buprenorphine 4 mg-naloxone 1 mg sublingual film (Suboxone) 1 film sublingual .COMPLEX 07/16/18 [History Confirmed 03/03/24] cholecalciferol (vitamin D3) 1,250 mcg (50,000 unit) capsule 50,000 unit PO QWEEK 07/16/18 [History Confirmed 03/03/24] lorazepam 0.5 mg tablet (Ativan) 0.5 mg PO TID 07/16/18 [History Confirmed 03/03/24] lurasidone 60 mg tablet (Latuda) 60 mg PO DAILY 09/13/20 [History Confirmed 03/03/24] baclofen 10 mg tablet 10 mg PO QHS PRN muscle spasm 08/24/22 [History Confirmed 03/03/24] ipratropium 0.5 mg-albuterol 3 mg (2.5 mg base)/3 mL nebulization soln 3 ml inhalation Q4H PRN PRN SOB /OR WHEEZING #180 mL 08/24/22 [Rx Confirmed 03/03/24] Nebulizer Compressor #1 ea 01/09/23 [Rx Confirmed 05/01/23] PEP device #1 ea 05/01/23 [Rx Confirmed 05/01/23] PEP device #1 ea 05/01/23 [Rx Confirmed 05/01/23] budesonide 160 mcg-glycopyr 9 mcg-formot 4.8 mcg/actuation HFA inhaler (Breztri Aerosphere) 2 inh inhalation BID #10.7 grams 05/01/23 [Rx Confirmed 03/03/24] docusate calcium 240 mg capsule 240 mg PO BID 03/03/24 [History Confirmed 03/03/24] duloxetine 30 mg capsule,delayed release 30 mg PO QDAY 03/03/24 [History Confirmed 03/03/24] hydroxyzine HCl 25 mg tablet 25 mg PO BID 03/03/24 [History Confirmed 03/03/24] [facility] Medical History (Updated 01/22/24 @ 00:01 by Haylee Levin) Angina pectoris Anxiety CAD (coronary artery disease) Chronic bronchitis Chronic pain Depression Diverticulitis Dyspnea Emphysema lung Hepatitis C HLD (hyperlipidemia) Hyperhidrosis Interstitial lung disease Multiple thyroid nodules Neuropathic pain Palpitations Rheumatoid arthritis Stage 2 moderate COPD by GOLD classification Tobacco abuse Surgical History (Updated 03/03/24 @ 14:51 by Gaby Dillard) H/O foot surgery H/O total hysterectomy History of bilateral carpal tunnel release History of lung surgery History of tonsillectomy S/P laparoscopic cholecystectomy Family History Mother CAD (coronary artery disease) stents Hypertension Heart disease Sister CAD (coronary artery disease) Diabetes Father Diabetes Heart disease Hypertension Social History Smoking Status: Current every day smoker tobacco type: cigarettes Tobacco: How many years used: 54 alcohol intake: never substance use type: does not use HPI HPI HPI: 63-year-old female. She was unable to make her appointment of February 05, 2024. The patient recently has had a sister age approximately 55 and a niece both diagnosed with thyroid cancer. The patient herself has had no change of symptoms. No neck pressure. No hoarseness. No difficulty swallowing. She otherwise feels stable 63-year-old female. I have most recently assisted her in the office on December 07, 2020. At that point we did an ultrasound-guided fine-needle aspiration of 2 right sided thyroid nodules and 1 left-sided thyroid nodule. Cytology on all of these were consistent with benign follicular nodules with specimen adequate for evaluation. Suggest adenomatoid nodule. The thyroid ultrasound suggests a right thyroid 3 x 3.1 x 2.2 cm nodule TI-RADS 3. Inferior on the right there is a 6 x 10 x 10 mm Ti RADS 4 nodule. On the left there is a 2.2 x 1.7 x 1.9 cm Ti RADS [address] [facility] on January 13, 2024 thyroid ultrasound. Right thyroid lobe measures 6.4 x 2.7 x 2.9 cm. The left lobe measures 5.2 x 2.2 x 1 cm Right lower pole 3.9 x 2.8 x 2.7 cm TI-RADS 3 nodule Left lower pole 2.6 x 1.8 x 0.9 cm TI-RADS 4 nodule Fine-needle aspiration of each lesion was recommended but I do not believe that the radiologist was aware that this has been previously performed. ROS General General: No weight change, appetite, fatigue, colon cancer, breast cancer or weakness HEENT HEENT: Yes swollen glands; No difficulty swallowing, eye (more content not included)... Normal [facility] HCQPCRon 02-21-2024 HCV Test Info Comment Normal [facility] ([place]) Comment on above: Result Comment: The quantitative range of this assay is 15 IU/mL to 100 million IU/mL. Performed At: [facility] [id number] Aleksandr Sampson MD Ph:[phone] Performed By: #### A DIFF, ESR, A1C, TSHR, FT4, CBC, GFR, ANEU, URIC, CMP, LIPID, VIDH #### [address] [address] #### CRPHS, B12 #### [address] [address] Hep C Qn Not detected Normal [facility] ([place]) Comment on above: Performed By: #### A DIFF, ESR, A1C, TSHR, FT4, CBC, GFR, ANEU, URIC, CMP, LIPID, VIDH #### [address] [address] #### CRPHS, B12 #### [address] [address] .ANATon 02-19-2024 PORTIA Pattern 1 Homogeneous Normal [facility] ([place]) Comment on above: Result Comment: At [facility], an PORTIA titer of less than 160 is not considered suggestive of significant rheumatoid disease. If clinical suspicion is high, suggest repeat testing in 1-2 months. Performed By: #### A DIFF, ESR, A1C, TSHR, FT4, CBC, GFR, ANEU, URIC, CMP, LIPID, VIDH #### [address] [address] #### CRPHS, B12 #### [address] [address] PORTIA Titer 1 40 Normal [facility] ([place]) Comment on above: Performed By: #### A DIFF, ESR, A1C, TSHR, FT4, CBC, GFR, ANEU, URIC, CMP, LIPID, VIDH #### [address] [address] #### CRPHS, B12 #### [address] [address] ANAon 02-19-2024 PORTIA See Titer Normal Neg 40 [facility] ([place]) Comment on above: Result Comment: PORTIA Screen and Titer methodology is an immunofluorescent technique utilizing Hep2 Substrate. Performed By: #### A DIFF, ESR, A1C, TSHR, FT4, CBC, GFR, ANEU, URIC, CMP, LIPID, VIDH #### [address] [address] #### CRPHS, B12 #### [address] [address] .Auto Diffon 02-18-2024 Basophil, Absolute 0.0 10 3/mcL Normal 0.0-0.2 [facility] ([place]) Comment on above: Performed By: #### C BC, ADIFF, A1C, FES, ANEU, FERR, VIDH, CMP, [id number], LIPID, TSH, ESR, GFR, FT4 ####[address] [address]#### PORTIA, CRPHS, THYAB, T3, YAHAIRA, B12, HCV1 ####[address] [address] Basophils/100 WBC (Bld) 0.4 % Normal 0.0-2.5 A [facility] ([place]) Comment on above: Performed By: #### C BC, ADIFF, A1C, FES, ANEU, FERR, VIDH, CMP, [id number], LIPID, TSH, ESR, GFR, FT4 ####[address] [address]#### PORTIA, CRPHS, THYAB, T3, YAHAIRA, B12, HCV1 ####[address] [address] Eosinophil, Absolute 0.2 10 3/mcL Normal 0.0-0.4 [facility] ([place]) Comment on above: Performed By: #### C BC, ADIFF, A1C, FES, ANEU, FERR, VIDH, CMP, [id number], LIPID, TSH, ESR, GFR, FT4 ####[place] [address]#### PORTIA, CRPHS, THYAB, T3, YAHAIRA, B12, HCV1 ####[address] [address] Eosinophils/100 WBC (Bld) 2.5 % Normal 0.0-7.0 [facility] ([place]) Comment on above: Performed By: #### C BC, ADIFF, A1C, FES, ANEU, FERR, VIDH, CMP, [id number], LIPID, TSH, ESR, GFR, FT4 ####[place] [address]#### PORTIA, CRPHS, THYAB, T3, YAHAIRA, B12, HCV1 ####[address] [address] Lymphocyte, Absolute 3.1 10 3/mcL Normal 0.8-3.9 [facility] ([place]) Comment on above: Performed By: #### C BC, ADIFF, A1C, FES, ANEU, FERR, VIDH, CMP, [id number], LIPID, TSH, ESR, GFR, FT4 ####[place] [address]#### PORTIA, CRPHS, THYAB, T3, YAHAIRA, B12, HCV1 ####[address] [address] Lymphocytes/100 WBC (Bld) 46.7 % Normal 10.0-50.0 [facility] ([place]) Comment on above: Performed By: #### C BC, ADIFF, A1C, FES, ANEU, FERR, VIDH, CMP, [id number], LIPID, TSH, ESR, GFR, FT4 ####[place] [address]#### PORTIA, CRPHS, THYAB, T3, YAHAIRA, B12, HCV1 ####[address] [address] Monocyte, Absolute 0.5 10 3/mcL Normal 0.2-1.0 [facility] ([place]) Comment on above: Performed By: #### C BC, ADIFF, A1C, FES, ANEU, FERR, VIDH, CMP, [id number], LIPID, TSH, ESR, GFR, FT4 ####[place] [address]#### PORTIA, CRPHS, THYAB, T3, YAHAIRA, B12, HCV1 ####[address] [address] Monocytes/100 WBC (Bld) 8.1 % Normal 1.7-13.0 A [facility] ([place]) Comment on above: Performed By: #### C BC, ADIFF, A1C, FES, ANEU, FERR, VIDH, CMP, [id number], LIPID, TSH, ESR, GFR, FT4 ####[place] [address]#### PORTIA, CRPHS, THYAB, T3, YAHAIRA, B12, HCV1 ####[address] [address] Neutrophils/100 WBC (Bld) 42.3 % Normal 37.0-80.0 [facility] ([place]) Comment on above: Performed By: #### C BC, ADIFF, A1C, FES, ANEU, FERR, VIDH, CMP, [id number], LIPID, TSH, ESR, GFR, FT4 ####[place] [address]#### PORTIA, CRPHS, THYAB, T3, YAHAIRA, B12, HCV1 ####[address] [address] .GFRon 02-18-2024 GFR 84 ml/min/1.73sqm Normal [facility] ([place]) Comment on above: Result Comment: GFR Population mean for , Non- Americans Ages 20-29 = 116 mL/min/1.73 sq.m. Ages 30-39 = 107 mL/min/1.73 sq.m. Ages 40-49 = 99 mL/min/1.73 sq.m. Ages 50-59 = 93 mL/min/1.73 sq.m. Ages 60-69 = 85 mL/min/1.73 sq.m. Ages 70+ = 75 mL/min/1.73 sq.m. Chronic Kidney Disease: Less than 60 mL/min/1.73 square meters End Stage Renal Disease: Less than 15 mL/min/1.73 square meters Performed By: #### A DIFF, ESR, A1C, TSHR, FT4, CBC, GFR, ANEU, URIC, CMP, LIPID, VIDH #### [address] [address] #### CRPHS, B12 #### [place] [address] GFR Non- 70 ml/min/1.73sqm Normal [facility] ([place]) Comment on above: Result Comment: GFR Population mean for , Non- Americans Ages 20-29 = 116 mL/min/1.73 sq.m. Ages 30-39 = 107 mL/min/1.73 sq.m. Ages 40-49 = 99 mL/min/1.73 sq.m. Ages 50-59 = 93 mL/min/1.73 sq.m. Ages 60-69 = 85 mL/min/1.73 sq.m. Ages 70+ = 75 mL/min/1.73 sq.m. Chronic Kidney Disease: Less than 60 mL/min/1.73 square meters End Stage Renal Disease: Less than 15 mL/min/1.73 square meters Performed By: #### A DIFF, ESR, A1C, TSHR, FT4, CBC, GFR, ANEU, URIC, CMP, LIPID, VIDH #### [address] [address] #### CRPHS, B12 #### [address] [address] .NEUABSon 02-18-2024 Neutrophil, Absolute 2.8 10 3/mcL Low 2.9-6.2 [facility] ([place]) Comment on above: Performed By: #### C BC, ADIFF, A1C, FES, ANEU, FERR, VIDH, CMP, [id number], LIPID, TSH, ESR, GFR, FT4 ####[place] [address]#### PORTIA, CRPHS, THYAB, T3, YAHAIRA, B12, HCV1 ####[place] [address] A1Con 02-18-2024 HbA1c (Bld) [Mass fraction] 5.5 % Normal 4.3-6.4 [facility] ([place]) Comment on above: Performed By: #### A DIFF, ESR, A1C, TSHR, FT4, CBC, GFR, ANEU, URIC, CMP, LIPID, VIDH #### [place] [address] #### CRPHS, B12 #### [place] [address] B12on 02-18-2024 Cobalamin (Vitamin B12) [Mass/Vol] 357 pg/mL Normal 211-911 [facility] ([place]) Comment on above: Performed By: #### A DIFF, ESR, A1C, TSHR, FT4, CBC, GFR, ANEU, URIC, CMP, LIPID, VIDH #### [place] [address] #### CRPHS, B12 #### [place] [address] CBCon 02-18-2024 Erythrocyte distribution width (RBC) [Ratio] 13.6 % Normal 11.5-14.5 [facility] ([place]) Comment on above: Performed By: #### C BC, ADIFF, A1C, FES, ANEU, FERR, VIDH, CMP, [id number], LIPID, TSH, ESR, GFR, FT4 ####[place] [address]#### PORTIA, CRPHS, THYAB, T3, YAHAIRA, B12, HCV1 ####[address] [address] Hematocrit (Bld) [Volume fraction] 41.0 % Normal 37.0-47.0 [facility] ([place] Comment on above: Performed By: #### C BC, ADIFF, A1C, FES, ANEU, FERR, VIDH, CMP, [id number], LIPID, TSH, ESR, GFR, FT4 ####[place] [address]#### PORTIA, CRPHS, THYAB, T3, YAHAIRA, B12, HCV1 ####[place] [address] Hgb 14.4 G/dL Normal 12.0-16.0 [facility] ([place]) Comment on above: Performed By: #### C BC, ADIFF, A1C, FES, ANEU, FERR, VIDH, CMP, [id number], LIPID, TSH, ESR, GFR, FT4 ####[place] [address]#### PORTIA, CRPHS, THYAB, T3, YAHAIRA, B12, HCV1 ####[address] [address] MCH (RBC) [Entitic mass] 31.8 pg High 27.0-31.2 [facility] ([place]) Comment on above: Performed By: #### C BC, ADIFF, A1C, FES, ANEU, FERR, VIDH, CMP, [id number], LIPID, TSH, ESR, GFR, FT4 ####[place] [address]#### PORTIA, CRPHS, THYAB, T3, YAHAIRA, B12, HCV1 ####[place] [id number] MCHC 35.1 G/dL Normal 33.0-37.0 [facility] ([place]) Comment on above: Performed By: #### C BC, ADIFF, A1C, FES, ANEU, FERR, VIDH, CMP, [id number], LIPID, TSH, ESR, GFR, FT4 ####[address] [address]#### PORTIA, CRPHS, THYAB, T3, YAHAIRA, B12, HCV1 ####[address] [address] MCV (RBC) [Entitic vol] 90.7 fL Normal 80.0-94.0 [facility] ([place]) Comment on above: Performed By: #### C BC, ADIFF, A1C, FES, ANEU, FERR, VIDH, CMP, [id number], LIPID, TSH, ESR, GFR, FT4 ####[address] [address]#### PORTIA, CRPHS, THYAB, T3, YAHAIRA, B12, HCV1 ####[address] [address] Platelet 195 10 3/mcL Normal 130-400 [facility] ([place]) Comment on above: Performed By: #### C BC, ADIFF, A1C, FES, ANEU, FERR, VIDH, CMP, [id number], LIPID, TSH, ESR, GFR, FT4 ####[address] [address]#### PORTIA, CRPHS, THYAB, T3, YAHAIRA, B12, HCV1 ####[address] [address] Platelet mean volume (Bld) [Entitic vol] 8.5 fL Normal 7.4-10.4 [facility] ([place]) Comment on above: Performed By: #### C BC, ADIFF, A1C, FES, ANEU, FERR, VIDH, CMP, [id number], LIPID, TSH, ESR, GFR, FT4 ####[address] [address]#### PORTIA, CRPHS, THYAB, T3, YAHAIRA, B12, HCV1 ####[address] [address] RBC 4.52 10 6/mcL Normal 4.20-5.40 [facility] ([place]) Comment on above: Performed By: #### C BC, ADIFF, A1C, FES, ANEU, FERR, VIDH, CMP, [id number], LIPID, TSH, ESR, GFR, FT4 ####[place] [address]#### PORTIA, CRPHS, THYAB, T3, YAHAIRA, B12, HCV1 ####[address] [address] WBC 6.6 10 3/mcL Normal 4.6-10.8 [facility] ([place]) Comment on above: Performed By: #### C BC, ADIFF, A1C, FES, ANEU, FERR, VIDH, CMP, [id number], LIPID, TSH, ESR, GFR, FT4 ####[place] [address]#### PORTIA, CRPHS, THYAB, T3, YAHAIRA, B12, HCV1 ####[place] [address] CMPon 02-18-2024 Albumin Level 3.8 G/dL Normal 3.4-4.8 [facility] ([place]) Comment on above: Performed By: #### A DIFF, ESR, A1C, TSHR, FT4, CBC, GFR, ANEU, URIC, CMP, LIPID, VIDH #### [place] [address] #### CRPHS, B12 #### [place] [address] Albumin/Globulin [Mass ratio] 1.2 {ratio} Normal 1.1-2.5 [facility] ([place]) Comment on above: Performed By: #### A DIFF, ESR, A1C, TSHR, FT4, CBC, GFR, ANEU, URIC, CMP, LIPID, VIDH #### [place] [address] #### CRPHS, B12 #### [place] [address] ALP [Catalytic activity/Vol] 121 U/L Normal 40-135 [facility] ([place]) Comment on above: Performed By: #### A DIFF, ESR, A1C, TSHR, FT4, CBC, GFR, ANEU, URIC, CMP, LIPID, VIDH #### [address] [address] #### CRPHS, B12 #### [address] [address] ALT [Catalytic activity/Vol] 21 U/L Normal 14-59 [facility] ([place]) Comment on above: Performed By: #### A DIFF, ESR, A1C, TSHR, FT4, CBC, GFR, ANEU, URIC, CMP, LIPID, VIDH #### [place] [address] #### CRPHS, B12 #### [address] [address] AST [Catalytic activity/Vol] 12 U/L Normal 10-40 [facility] ([place]) Comment on above: Performed By: #### A DIFF, ESR, A1C, TSHR, FT4, CBC, GFR, ANEU, URIC, CMP, LIPID, VIDH #### [place] [address] #### CRPHS, B12 #### [address] [address] Bili Total 0.2 mg/dL Normal 0.2-1.0 [facility] ([place]) Comment on above: Result Comment: Use of this assay is not recommended for patients undergoing treatment with eltrombopag due to the potential for falsely elevated results. Performed By: #### A DIFF, ESR, A1C, TSHR, FT4, CBC, GFR, ANEU, URIC, CMP, LIPID, VIDH #### [place] [address] #### CRPHS, B12 #### [address] [address] BUN/Creatinine Ratio 10 ratio Normal 7-27 [facility] ([place]) Comment on above: Performed By: #### A DIFF, ESR, A1C, TSHR, FT4, CBC, GFR, ANEU, URIC, CMP, LIPID, VIDH #### [place] [address] #### CRPHS, B12 #### [address] [address] Calcium [Mass/Vol] 8.7 mg/dL Normal 8.4-10.2 [facility] ([place]) Comment on above: Performed By: #### A DIFF, ESR, A1C, TSHR, FT4, CBC, GFR, ANEU, URIC, CMP, LIPID, VIDH #### [address] [address] #### CRPHS, B12 #### [place] [address] Chloride [Moles/Vol] 104 mmol/L Normal 98-107 [facility] ([place]) Comment on above: Performed By: #### A DIFF, ESR, A1C, TSHR, FT4, CBC, GFR, ANEU, URIC, CMP, LIPID, VIDH #### [address] [address] #### CRPHS, B12 #### [place] [address] CO2 [Moles/Vol] 31 mmol/L Normal 23-31 [facility] ([place]) Comment on above: Performed By: #### A DIFF, ESR, A1C, TSHR, FT4, CBC, GFR, ANEU, URIC, CMP, LIPID, VIDH #### [address] [address] #### CRPHS, B12 #### [place] [address] Creatinine [Mass/Vol] 0.83 mg/dL Normal 0.55-1.02 [facility] ([place]) Comment on above: Performed By: #### A DIFF, ESR, A1C, TSHR, FT4, CBC, GFR, ANEU, URIC, CMP, LIPID, VIDH #### [address] [address] #### CRPHS, B12 #### [address] [address] Electrolyte Balance 10.0 mEq/L Normal 4.0-15.0 [facility] ([place]) Comment on above: Performed By: #### A DIFF, ESR, A1C, TSHR, FT4, CBC, GFR, ANEU, URIC, CMP, LIPID, VIDH #### [address] [address] #### CRPHS, B12 #### [address] [address] Globulin 3.1 G/dL Normal [facility] ([place]) Comment on above: Performed By: #### A DIFF, ESR, A1C, TSHR, FT4, CBC, GFR, ANEU, URIC, CMP, LIPID, VIDH #### [address] [address] #### CRPHS, B12 #### [address] [address] Glucose [Mass/Vol] 98 mg/dL Normal 80-115 [facility] ([place]) Comment on above: Performed By: #### A DIFF, ESR, A1C, TSHR, FT4, CBC, GFR, ANEU, URIC, CMP, LIPID, VIDH #### [address] [address] #### CRPHS, B12 #### [address] [address] Potassium [Moles/Vol] 3.5 mmol/L Normal 3.5-5.1 [facility] ([place]) Comment on above: Performed By: #### A DIFF, ESR, A1C, TSHR, FT4, CBC, GFR, ANEU, URIC, CMP, LIPID, VIDH #### [address] [address] #### CRPHS, B12 #### [address] [address] Sodium [Moles/Vol] 145 mmol/L Normal 136-145 [facility] ([place]) Comment on above: Performed By: #### A DIFF, ESR, A1C, TSHR, FT4, CBC, GFR, ANEU, URIC, CMP, LIPID, VIDH #### [address] [address] #### CRPHS, B12 #### [address] [address] Total Protein 6.9 G/dL Normal 6.4-8.2 [facility] ([place]) Comment on above: Performed By: #### A DIFF, ESR, A1C, TSHR, FT4, CBC, GFR, ANEU, URIC, CMP, LIPID, VIDH #### [address] [address] #### CRPHS, B12 #### [address] [address] Urea nitrogen [Mass/Vol] 8 mg/dL Normal 7-18 [facility] ([place]) Comment on above: Performed By: #### A DIFF, ESR, A1C, TSHR, FT4, CBC, GFR, ANEU, URIC, CMP, LIPID, VIDH #### [address] [address] #### CRPHS, B12 #### [place] [address] CRPHSon 02-18-2024 CRP, High Sensitive 4.35 mg/L High 0.20-3.00 [facility] ([place]) Comment on above: Result Comment: Rela tive Risk Category and Average hs-CRP Level: Higher Risk: > 5.0 mg/L Guidelines support that hs-CRP can be used as an independent predictor of increased coronary risk; however, hs-CRP results should only be interpreted in conjunction with other cardiac risk factors in establishing overall cardiac risk for a given patient. Performed By: #### A DIFF, ESR, A1C, TSHR, FT4, CBC, GFR, ANEU, URIC, CMP, LIPID, VIDH #### [address] [address] #### CRPHS, B12 #### [place] [id number] ESRon 02-18-2024 Erythrocyte Sed Rate 22 mm/hr Normal 0-30 [facility] ([place]) Comment on above: Performed By: #### C BC, ADIFF, A1C, FES, ANEU, FERR, VIDH, CMP, [id number], LIPID, TSH, ESR, GFR, FT4 ####[address] [address]#### PORTIA, CRPHS, THYAB, T3, YAHAIRA, B12, HCV1 ####[address] [address] [place] 02-18-2024 Ferritin [Mass/Vol] 53.0 ng/mL Normal 8.0-252.0 [facility] ([place]) Comment on above: Performed By: #### A DIFF, ESR, A1C, TSHR, FT4, CBC, GFR, ANEU, URIC, CMP, LIPID, VIDH #### [address] [address] #### CRPHS, B12 #### [address] [address] FESon 02-18-2024 Iron [Mass/Vol] 70 ug/dL Normal 50-170 [facility] ([place]) Comment on above: Performed By: #### A DIFF, ESR, A1C, TSHR, FT4, CBC, GFR, ANEU, URIC, CMP, LIPID, VIDH #### [address] [address] #### CRPHS, B12 #### [address] [address] Iron Sat 21 % Normal [facility] ([place]) Comment on above: Performed By: #### A DIFF, ESR, A1C, TSHR, FT4, CBC, GFR, ANEU, URIC, CMP, LIPID, VIDH #### [address] [address] #### CRPHS, B12 #### [address] [address] TIBC 326 mcg/dL Normal 250-450 [facility] ([place]) Comment on above: Performed By: #### A DIFF, ESR, A1C, TSHR, FT4, CBC, GFR, ANEU, URIC, CMP, LIPID, VIDH #### [address] [address] #### CRPHS, B12 #### [address] [address] FT4on 02-18-2024 Free T4 [Mass/Vol] 0.87 ng/dL Normal 0.76-1.46 [facility] ([place]) Comment on above: Performed By: #### A DIFF, ESR, A1C, TSHR, FT4, CBC, GFR, ANEU, URIC, CMP, LIPID, VIDH #### [address] [address] #### CRPHS, B12 #### [place] [address] HCVon 02-18-2024 Hep C Ab Equivocal Normal Non-Reactiv e [facility] ([place]) Comment on above: Performed By: #### A DIFF, ESR, A1C, TSHR, FT4, CBC, GFR, ANEU, URIC, CMP, LIPID, VIDH #### [address] [address] #### GUSTAVO, B12 #### [place] [address] Hep C Ab Int Normal [facility] ([place]) Comment on above: Result Comment: Equi vocal: Samples with a value of >/= 0.80 and < 1.00 index are considered equivocal. The HCV RT-PCR, Quant (Non,Graph)(HCQPCR) assay has been reflexed. Refer to the HCQPCR test results. See Interp Performed By: #### A DIFF, ESR, A1C, TSHR, FT4, CBC, GFR, ANEU, URIC, CMP, LIPID, VIDH #### [place] [address] #### CRPHS, B12 #### [place] [address] LABORATORYOrdered By: SYSTEM SYSTEM on 02-18-2024 25-hydroxyvitamin D3 [Mass/Vol] 17.3 ng/mL Invalid Interpretation Code AO ADM SS Comment on above: Interpretive Data: I nterpretive Values Based on Total 25(OH) Vitamin D: Deficient <20 ng/mL Insufficient 20 - <30 ng/mL Sufficient 30-100 ng/mL Albumin BCP dye [Mass/Vol] 3.8 G/dL Normal 3.4 - 4.8 G/dL AO ADM SS Albumin/Globulin [Mass ratio] 1.2 {ratio} Normal 1.1 - 2.5 ratio AO ADM SS ALP [Catalytic activity/Vol] 121 U/L Normal 40 - 135 U/L AO ADM SS ALT With P-5'-P [Catalytic activity/Vol] 21 U/L Normal 14 - 59 U/L AO ADM SS AST With P-5'-P [Catalytic activity/Vol] 12 U/L Normal 10 - 40 U/L AO ADM SS Basophil, Absolute 0.0 103/mcL Normal 0.0 - 0.2 10^3/mcL AO Workflow SS Basophils/100 WBC (Bld) 0.4 % Normal 0.0 - 2.5 % AO Workflow SS Bilirubin [Mass/Vol] 0.2 mg/dL Normal 0.2 - 1 .0 mg/dL AO ADM SS Comment on above: Interpretive Data: U se of this assay is not recommended for patients undergoing treatment with eltrombopag due to the potential for falsely elevated results. Calcium [Mass/Vol] 8.7 mg/dL Normal 8.4 - 10. 2 mg/dL AO ADM SS Chloride [Moles/Vol] 104 mmol/L Normal 98 - 10 7 mmol/L AO ADM SS CO2 [Moles/Vol] 31 mmol/L Normal 23 - 31 mmol/L AO ADM SS Cobalamin (Vitamin B12) [Mass/Vol] 357 pg/mL Normal 211 - 911 pg/mL AH ADM SS Creatinine [Mass/Vol] 0.83 mg/dL Normal 0.55 - 1.02 mg/dL AO ADM SS CRP High sensitivity method [Mass/Vol] 4.35 mg/L High 0.20 - 3.00 mg/L AH ADM SS Comment on above: Interpretive Data: R elative Risk Category and Average hs-CRP Level: Higher Risk: > 5.0 mg/L Guidelines support that hs-CRP can be used as an independent predictor of increased coronary risk; however, hs-CRP results should only be interpreted in conjunction with other cardiac risk factors in establishing overall cardiac risk for a given patient. Electrolyte Balance 10.0 mEq/L Normal 4.0 - 15 .0 mEq/L AO ADM SS Eosinophil, Absolute 0.2 103/mcL Normal 0.0 - 0 .4 10^3/mcL AO Workflow SS Eosinophils/100 WBC (Bld) 2.5 % Normal 0.0 - 7.0 % AO Workflow SS Erythrocyte distribution width (RBC) [Ratio] 13.6 % Normal 11.5 - 14.5 % AO Workflow SS Ferritin [Mass/Vol] 53.0 ng/mL Normal 8.0 - 25 2.0 ng/mL AO ADM SS Free T4 [Mass/Vol] 0.87 ng/dL Normal 0.76 - 1. 46 ng/dL AO ADM SS GFR/1.73 sq M.predicted among blacks MDRD (S/P/Bld) [Vol rate/Area] 84 ml/min/1.73sqm Invalid Interpretation Code AO Chemistry S Comment on above: Interpretive Data: GFR Population mean for , Non- Americans Ages 20-29 = 116 mL/min/1.73 sq.m. Ages 30-39 = 107 mL/min/1.73 sq.m. Ages 40-49 = 99 mL/min/1.73 sq.m. Ages 50-59 = 93 mL/min/1.73 sq.m. Ages 60-69 = 85 mL/min/1.73 sq.m. Ages 70+ = 75 mL/min/1.73 sq.m. Chronic Kidney Disease: Less than 60 mL/min/1.73 square meters End Stage Renal Disease: Less than 15 mL/min/1.73 square meters GFR/1.73 sq M.predicted among non-blacks MDRD (S/P/Bld) [Vol rate/Area] 70 ml/min/1.73sqm Invalid Interpretation Code AO Chemistry S Comment on above: Interpretive Data: GFR Population mean for , Non- Americans Ages 20-29 = 116 mL/min/1.73 sq.m. Ages 30-39 = 107 mL/min/1.73 sq.m. Ages 40-49 = 99 mL/min/1.73 sq.m. Ages 50-59 = 93 mL/min/1.73 sq.m. Ages 60-69 = 85 mL/min/1.73 sq.m. Ages 70+ = 75 mL/min/1.73 sq.m. Chronic Kidney Disease: Less than 60 mL/min/1.73 square meters End Stage Renal Disease: Less than 15 mL/min/1.73 square meters Globulin 3.1 G/dL Invalid Interpretation Code AO ADM SS Glucose [Mass/Vol] 98 mg/dL Normal 80 - 115 mg/dL AO ADM SS HbA1c (Bld) [Mass fraction] 5.5 % Normal 4.3 - 6.4 % AO ADM SS Hematocrit (Bld) [Volume fraction] 41.0 % Normal 37.0 - 47.0 % AO Workflow SS Hemoglobin (Bld) [Mass/Vol] 14.4 G/dL Normal 12.0 - 16.0 G/dL AO Workflow SS Iron [Mass/Vol] 70 ug/dL Normal 50 - 170 mcg/dL AO ADM SS Iron binding capacity [Mass/Vol] 326 mcg/dL Normal 250 - 450 mcg/dL AO ADM SS Iron Sat 21 % Invalid Interpretation Code AO ADM SS Lymphocyte, Absolute 3.1 103/mcL Normal 0.8 - 3 .9 10^3/mcL AO Workflow SS Lymphocytes/100 WBC (Bld) 46.7 % Normal 10.0 - 50.0 % AO Workflow SS MCH (RBC) [Entitic mass] 31.8 pg High 27.0 - 31.2 pg AO Workflow SS MCHC 35.1 G/dL Normal 33.0 - 37.0 G/dL AO Workflow SS MCV (RBC) [Entitic vol] 90.7 fL Normal 80.0 - 94.0 fL AO Workflow SS Monocyte, Absolute 0.5 103/mcL Normal 0.2 - 1.0 10^3/mcL AO Workflow SS Monocytes/100 WBC (Bld) 8.1 % Normal 1.7 - 13.0 % AO Workflow SS Neutrophil, Absolute 2.8 103/mcL Low 2.9 - 6 .2 10^3/mcL AO Workflow SS Neutrophils/100 WBC (Bld) 42.3 % Normal 37.0 - 80.0 % AO Workflow SS Platelet mean volume (Bld) [Entitic vol] 8.5 fL Normal 7.4 - 10.4 fL AO Workflow SS Platelets (Bld) [#/Vol] 195 103/mcL Normal 130 - 400 10^3/mcL AO Workflow SS Potassium [Moles/Vol] 3.5 mmol/L Normal 3.5 - 5.1 mmol/L AO ADM SS Protein [Mass/Vol] 6.9 G/dL Normal 6.4 - 8.2 G/dL AO ADM SS RBC (Bld) [#/Vol] 4.52 106/mcL Normal 4.20 - 5.4 0 10^6/mcL AO Workflow SS Sodium [Moles/Vol] 145 mmol/L Normal 136 - 145 mmol/L AO ADM SS T3 [Mass/Vol] 138 ng/dL Normal 60 - 181 ng/dL AH ADM SS Thyroglobulin Ab IA Qn unit/mL Normal 15 - 60 unit/mL AH ADM SS Comment on above: Interpretive Data: * *Note - New Reference Range in effect 20 TPO Ab IA Qn 54 unit/mL Normal 0 - 60 unit/mL AH ADM SS Comment on above: Interpretive Data: * *Note - New Reference Range in effect 20 TSH Qn 1.78 m[IU]/L Normal 0.36 - 3.74 mcIU/mL AO ADM SS Urea nitrogen [Mass/Vol] 8 mg/dL Normal 7 - 18 mg/dL AO ADM SS Urea nitrogen/Creatinine [Mass ratio] 10 ratio Normal 7 - 27 ratio AO ADM SS WBC (Bld) [#/Vol] 6.6 103/mcL Normal 4.6 - 10.8 10^3/mcL AO Workflow SS LABORATORYOrdered By: Wil Crystal on 02-18-2024 Cholesterol [Mass/Vol] 225 mg/dL High 0 - 2 00 mg/dL AO ADM SS Comment on above: Interpretive Data: C holesterol Reference Interval: Less than 200 Desirable 200-239 Borderline high risk 240 and above High risk Cholesterol in HDL [Mass/Vol] 44 mg/dL Normal 40 - 60 mg/dL AO ADM SS Cholesterol in LDL [Mass/Vol] 146 mg/dL High 0 - 130 mg/dL AO ADM SS Triglyceride [Mass/Vol] 177 mg/dL High 0 - 150 mg/dL AO ADM SS Comment on above: Interpretive Data: T riglyceride Reference Interval: Less than 150 Normal 150-199 Borderline high risk 200-499 High risk 500 or higher Very high risk LABORATORYOrdered By: Mick Piedra on 02-18-2024 ESR Photometric method (Bld) [Velocity] 22 mm/hr Normal 0 - 30 mm/hr AO Man Heme SS LABORATORYOrdered By: Mason Mccoy on 02-18-2024 HCV Ab IA Ql Equivocal *NA* (02/18/24 2:16 PM) Invalid Interpretation Code AH ADM SS HCV Ab IA Ql Equivocal: Samples w ith a value of >/= 0.80 and < 1.00 index are considered equivocal. The HCV RT-PCR, Quant (Non,Graph)(HCQPCR) assay has been reflexed. Refer to the HCQPCR test results. Normal AH Chemistry S LABORATORYOrdered By: [employer] P CONTRIBUTOR_SYSTEM on 02-18-2024 HCV Test Info (LC) Comment Invalid Interpretation Code AO Sendouts SS Comment on above: Result Comment: The quantitative range of this assay is 15 IU/mL to 100 million IU/mL. Performed At: [facility] [id number] Aleksandr Sampson MD Ph:[phone] Hep C Qn (LC) Not detected Invalid Interpretation Code AO Sendouts SS LABORATORYOrdered By: Fernando Poole on 02-18-2024 Nuclear Ab IF (S) [Titer] 40 (02/18/24 2:16 PM) Normal AH Man Viro/Sero SS Nuclear Ab IF Ql (S) See Titer 2 (02/18/24 2:16 PM) Normal Neg 40 AH Man Viro/Sero SS Comment on above: Interpretive Data: A NA Screen and Titer methodology is an immunofluorescent technique utilizing Hep2 Substrate. Nuclear Ab pattern IF (S) [Interp] Homogeneous 10 (02/18/24 2:16 PM) Normal AH Man Viro/Sero SS Comment on above: Result Comment: At [facility], an PORTIA titer of less than 160 is not considered suggestive of significant rheumatoid disease. If clinical suspicion is high, suggest repeat testing in 1-2 months. LIPIDon 02-18-2024 Cholesterol [Mass/Vol] 225 mg/dL High 0-200 [facility] ([place]) Comment on above: Result Comment: Chol esterol Reference Interval: Less than 200 Desirable 200-239 Borderline high risk 240 and above High risk Performed By: #### A DIFF, ESR, A1C, TSHR, FT4, CBC, GFR, ANEU, URIC, CMP, LIPID, VIDH #### [facility] [address] [place], [place] [address] #### CRPHS, B12 #### [facility] [address] [place] [address] Cholesterol in HDL [Mass/Vol] 44 mg/dL Normal 40-60 [facility] ([place]) Comment on above: Performed By: #### A DIFF, ESR, A1C, TSHR, FT4, CBC, GFR, ANEU, URIC, CMP, LIPID, VIDH #### [address] [address] #### CRPHS, B12 #### [address] [address] Cholesterol in LDL [Mass/Vol] 146 mg/dL High 0-130 [facility] ([place]) Comment on above: Performed By: #### A DIFF, ESR, A1C, TSHR, FT4, CBC, GFR, ANEU, URIC, CMP, LIPID, VIDH #### [address] [address] #### CRPHS, B12 #### [address] [address] Triglyceride [Mass/Vol] 177 mg/dL High 0-150 [facility] ([place]) Comment on above: Result Comment: Trig lyceride Reference Interval: Less than 150 Normal 150-199 Borderline high risk 200-499 High risk 500 or higher Very high risk Performed By: #### A DIFF, ESR, A1C, TSHR, FT4, CBC, GFR, ANEU, URIC, CMP, LIPID, VIDH #### [address] [address] #### CRPHS, B12 #### [address] [address] T3on 02-18-2024 Total T3 138 ng/dL Normal 60-181 [facility] ([place]) Comment on above: Performed By: #### A DIFF, ESR, A1C, TSHR, FT4, CBC, GFR, ANEU, URIC, CMP, LIPID, VIDH #### [address] [address] #### CRPHS, B12 #### [address] [address] THYABon 02-18-2024 anti-Thyroid Peroxidase 54 units/ml Normal 0-60 [facility] ([place]) Comment on above: Result Comment: No te - New Reference Range in effect 20 Performed By: #### A DIFF, ESR, A1C, TSHR, FT4, CBC, GFR, ANEU, URIC, CMP, LIPID, VIDH #### [address] [address] #### CRPHS, B12 #### [place] [address] Thyroglobulin Ab Qn [IU]/mL Normal 15-60 [facility] ([place]) Comment on above: Result Comment: No te - New Reference Range in effect 20 Performed By: #### A DIFF, ESR, A1C, TSHR, FT4, CBC, GFR, ANEU, URIC, CMP, LIPID, VIDH #### [place] [address] #### CRPZHANNA, B12 #### [place] [address] TSHon 02-18-2024 TSH Qn 1.78 m[IU]/L Normal 0.36-3.74 [facility] ([place]) Comment on above: Performed By: #### A DIFF, ESR, A1C, TSHR, FT4, CBC, GFR, ANEU, URIC, CMP, LIPID, VIDH #### [address] [address] #### GUSTAVO, B12 #### [place] [address] VIDHon 02-18-2024 Vit. D 25-Hydroxy 17.3 ng/mL Normal [facility] ([place]) Comment on above: Result Comment: Inte rpretive Values Based on Total 25(OH) Vitamin D: Deficient <20 ng/mL Insufficient 20 - <30 ng/mL Sufficient 30-100 ng/mL Performed By: #### A DIFF, ESR, A1C, TSHR, FT4, CBC, GFR, ANEU, URIC, CMP, LIPID, VIDH #### [place] [address] #### CRPHS, B12 #### [place] [address] Surgery Visit Reporton 02-04 Surgery Visit Report [facility] [address] [place] [address] OFFICE VISIT Date of Service: 03/03/24 MR#: [id number] Acct: [id number] Name: VEOR NGO Rep #: [id number] : 1960 Provider: Dr. Kia platt MD Age/Sex: 63/F Location: [facility] Status: Signed Intake Vital Signs 01/14/24 14:56 Height 5 ft 7 in Intake Visit Reasons: THYROID NODULE Chief Complaint: thyroid biopsy Allergies No Known Allergies Allergy (Verified 05/28/23 02:19) [facility] Medical History (Updated 01/22/24 @ 00:01 by Background Poonam) Angina pectoris Anxiety CAD (coronary artery disease) Chronic bronchitis Chronic pain Depression Diverticulitis Dyspnea Emphysema lung Hepatitis C HLD (hyperlipidemia) Hyperhidrosis Interstitial lung disease Multiple thyroid nodules Neuropathic pain Palpitations Rheumatoid arthritis Stage 2 moderate COPD by GOLD classification Tobacco abuse Surgical History H/O foot surgery H/O total hysterectomy History of bilateral carpal tunnel release History of lung surgery History of tonsillectomy Family History Mother CAD (coronary artery disease) stents Hypertension Heart disease Sister CAD (coronary artery disease) Diabetes Father Diabetes Heart disease Hypertension Social History Smoking Status: Current every day smoker tobacco type: cigarettes Tobacco: How many years used: 54 alcohol intake: never substance use type: does not use HPI HPI HPI: 63-year-old female. I have most recently assisted her in the office on December 07, 2020. At that point we did an ultrasound-guided fine-needle aspiration of 2 right sided thyroid nodules and 1 left-sided thyroid nodule. Cytology on all of these were consistent with benign follicular nodules with specimen adequate for evaluation. Suggest adenomatoid nodule. The thyroid ultrasound suggests a right thyroid 3 x 3.1 x 2.2 cm nodule TI-RADS 3. Inferior on the right there is a 6 x 10 x 10 mm Ti RADS 4 nodule. On the left there is a 2.2 x 1.7 x 1.9 cm Ti RADS [address]ule[address] [facility] on January 13, 2024 thyroid ultrasound. Right thyroid lobe measures 6.4 x 2.7 x 2.9 cm. The left lobe measures 5.2 x 2.2 x 1 cm Right lower pole 3.9 x 2.8 x 2.7 cm TI-RADS 3 nodule Left lower pole 2.6 x 1.8 x 0.9 cm TI-RADS 4 nodule Fine-needle aspiration of each lesion was recommended but I do not believe that the radiologist was aware that this has been previously performed. Assessment and Plan Assessment and Plan (1) Multiple thyroid nodules: Status: Acute Plan: The patient called this morning and stated that she was not feeling well and would not be presenting for her appointment. Copy:Sammy Zabala NP, SUAD Guallpa M.D., F.A.C.S. Coding Level of Care Code No Charge Diagnoses Multiple thyroid nodules E04.2 02/05/24 1131 Date Kia Guallpa MD [facility] Signature: Date (if applicable) CC: SUAD Zabala Normal [place] [facility] Alcohol, Blood (Medical)-Ser umon 01-15-2024 SERUM ETOH < 3.0 Normal [facility] Comment on above: Result Comment: The serum:whole blood ethanol ratio is approximately 1.14 and varies slightly with hematocrit. Medical Alcohol reference interval and critical value in non-tolerant individuals; 50 - 100 Impairment 100 Intoxication 100 - 250 Severe Poisoning 250 - 400 Deep/possible fatal coma RESULT(S) PREVIOUSLY REPORTED ON MANUAL REQUISITION DURING DOWNTIME. Performed By: #### L 501.9100, L500.4050, L400.0001, L505.5000, L100.0100 #### [facility] [address] [place], [address] CBC W/Diff, Automatedon 03-11 06-2023 Absolute Lymph 1.97 X10 3/uL Normal 0.83-4.51 [facility] Comment on above: Order Comment: RESUL T(S) PREVIOUSLY REPORTED ON MANUAL REQUISITION DURING DOWNTIME. Performed By: #### L 501.9100, L500.4050, L400.0001, L505.5000, L100.0100 #### [facility] [address] [place], [address] Absolute Neut 12.8 X10 3/uL High 2.0-7.7 [facility] Comment on above: Order Comment: RESUL T(S) PREVIOUSLY REPORTED ON MANUAL REQUISITION DURING DOWNTIME. Performed By: #### L 501.9100, L500.4050, L400.0001, L505.5000, L100.0100 #### [facility] [address] [place], [address] Basophils/100 WBC (Bld) 0.4 % Normal 0-1 [facility] Comment on above: Order Comment: RESUL T(S) PREVIOUSLY REPORTED ON MANUAL REQUISITION DURING DOWNTIME. Performed By: #### L 501.9100, L500.4050, L400.0001, L505.5000, L100.0100 #### [facility] [address] [place], [address] Eosinophils/100 WBC (Bld) 0.2 % Normal 0-5 [facility] Comment on above: Order Comment: RESUL T(S) PREVIOUSLY REPORTED ON MANUAL REQUISITION DURING DOWNTIME. Performed By: #### L 501.9100, L500.4050, L400.0001, L505.5000, L100.0100 #### [facility] [address] [place], [address] Erythrocyte distribution width (RBC) [Ratio] 13.0 % Normal 11.6-14.6 [facility] Comment on above: Order Comment: RESUL T(S) PREVIOUSLY REPORTED ON MANUAL REQUISITION DURING DOWNTIME. Performed By: #### L 501.9100, L500.4050, L400.0001, L505.5000, L100.0100 #### [facility] [address] [place], [address] Hematocrit (Bld) [Volume fraction] 45.0 % Normal 37-47 [facility] Comment on above: Order Comment: RESUL T(S) PREVIOUSLY REPORTED ON MANUAL REQUISITION DURING DOWNTIME. Performed By: #### L 501.9100, L500.4050, L400.0001, L505.5000, L100.0100 #### [facility] [address] [place], [address] Hemoglobin (Bld) [Mass/Vol] 14.9 g/dL Normal 12.0-15.0 [facility] Comment on above: Order Comment: RESUL T(S) PREVIOUSLY REPORTED ON MANUAL REQUISITION DURING DOWNTIME. Performed By: #### L 501.9100, L500.4050, L400.0001, L505.5000, L100.0100 #### [facility] [address] [place], [address] IG% 0.600 Normal 0.0-0.9 [facility] Comment on above: Order Comment: RESUL T(S) PREVIOUSLY REPORTED ON MANUAL REQUISITION DURING DOWNTIME. Result Comment: IG% - Immature Granulocytes (promyelocytes, myelocytes and metamyelocytes) > 1% indicates that a LEFT SHIFT is Present. Performed By: #### L 501.9100, L500.4050, L400.0001, L505.5000, L100.0100 #### [facility] [address] [place], [address] Lymphocytes/100 WBC (Bld) 12.2 % Low 19-41 [facility] Comment on above: Order Comment: RESUL T(S) PREVIOUSLY REPORTED ON MANUAL REQUISITION DURING DOWNTIME. Performed By: #### L 501.9100, L500.4050, L400.0001, L505.5000, L100.0100 #### [facility] [address] [place], [address] MCH (RBC) [Entitic mass] 30.7 pg Normal 27.0-32.0 [facility] Comment on above: Order Comment: RESUL T(S) PREVIOUSLY REPORTED ON MANUAL REQUISITION DURING DOWNTIME. Performed By: #### L 501.9100, L500.4050, L400.0001, L505.5000, L100.0100 #### [facility] [address] [place], [address] MCHC (RBC) [Mass/Vol] 33.1 g/dL Normal 32-36 [facility] Comment on above: Order Comment: RESUL T(S) PREVIOUSLY REPORTED ON MANUAL REQUISITION DURING DOWNTIME. Performed By: #### L 501.9100, L500.4050, L400.0001, L505.5000, L100.0100 #### [facility] [address] [place], [address] MCV (RBC) [Entitic vol] 92.8 fL Normal 81-99 [facility] Comment on above: Order Comment: RESUL T(S) PREVIOUSLY REPORTED ON MANUAL REQUISITION DURING DOWNTIME. Performed By: #### L 501.9100, L500.4050, L400.0001, L505.5000, L100.0100 #### [facility] [address] [place], [address] Monocytes/100 WBC (Bld) 6.9 % Normal 0-10 [facility] Comment on above: Order Comment: RESUL T(S) PREVIOUSLY REPORTED ON MANUAL REQUISITION DURING DOWNTIME. Performed By: #### L 501.9100, L500.4050, L400.0001, L505.5000, L100.0100 #### [facility] [address] [place], [address] Neutrophils/100 WBC (Bld) 79.7 % High 47-70 [facility] Comment on above: Order Comment: RESUL T(S) PREVIOUSLY REPORTED ON MANUAL REQUISITION DURING DOWNTIME. Performed By: #### L 501.9100, L500.4050, L400.0001, L505.5000, L100.0100 #### [facility] [address] [place], [address] Platelet mean volume (Bld) [Entitic vol] 10.4 fL Normal 6.2-12.0 [facility] Comment on above: Order Comment: RESUL T(S) PREVIOUSLY REPORTED ON MANUAL REQUISITION DURING DOWNTIME. Performed By: #### L 501.9100, L500.4050, L400.0001, L505.5000, L100.0100 #### [facility] [address] [place], [address] Platelets (Bld) [#/Vol] 262 10*3/uL Normal 150-450 [facility] Comment on above: Order Comment: RESUL T(S) PREVIOUSLY REPORTED ON MANUAL REQUISITION DURING DOWNTIME. Performed By: #### L 501.9100, L500.4050, L400.0001, L505.5000, L100.0100 #### [facility] [address] [place], [address] RBC (Bld) [#/Vol] 4.85 10*6/uL Normal 4.2-5.4 [facility] Comment on above: Order Comment: RESUL T(S) PREVIOUSLY REPORTED ON MANUAL REQUISITION DURING DOWNTIME. Performed By: #### L 501.9100, L500.4050, L400.0001, L505.5000, L100.0100 #### [facility] [address] [place], [address] RDW SD 43.7 fl Normal 35.1-43.9 [facility] Comment on above: Order Comment: RESUL T(S) PREVIOUSLY REPORTED ON MANUAL REQUISITION DURING DOWNTIME. Performed By: #### L 501.9100, L500.4050, L400.0001, L505.5000, L100.0100 #### [facility] [address] [place], [address] WBC (Bld) [#/Vol] 16.1 10*3/uL High 4.4-11.0 [facility] Comment on above: Order Comment: RESUL T(S) PREVIOUSLY REPORTED ON MANUAL REQUISITION DURING DOWNTIME. Performed By: #### L 501.9100, L500.4050, L400.0001, L505.5000, L100.0100 #### [facility] [address] [place], [address] Comprehensive Metabolic Prof ilon 01-15-2024 ALK P 128 U/L High 45-117 [facility] Comment on above: Order Comment: RESUL T(S) PREVIOUSLY REPORTED ON MANUAL REQUISITION DURING DOWNTIME. Performed By: #### L 501.9100, L500.4050, L400.0001, L505.5000, L100.0100 #### [facility] [address] [place], [address] ALT [Catalytic activity/Vol] 17 U/L Normal 13-56 [facility] Comment on above: Order Comment: RESUL T(S) PREVIOUSLY REPORTED ON MANUAL REQUISITION DURING DOWNTIME. Performed By: #### L 501.9100, L500.4050, L400.0001, L505.5000, L100.0100 #### [facility] [address] [place], [address] Bilirubin [Mass/Vol] 0.40 mg/dL Normal 0.20-1.00 [facility] Comment on above: Order Comment: RESUL T(S) PREVIOUSLY REPORTED ON MANUAL REQUISITION DURING DOWNTIME. Result Comment: For patients on eltrombopag therapy, use of [facility] [facility] TBIL is not recommended. Performed By: #### L 501.9100, L500.4050, L400.0001, L505.5000, L100.0100 #### [facility] [address] [place], [address] Chloride [Moles/Vol] 105 mmol/L Normal 98-107 [facility] Comment on above: Order Comment: RESUL T(S) PREVIOUSLY REPORTED ON MANUAL REQUISITION DURING DOWNTIME. Performed By: #### L 501.9100, L500.4050, L400.0001, L505.5000, L100.0100 #### [facility] [address] [place], [address] CO2 [Moles/Vol] 29.0 mmol/L Normal 21.0-32.0 [facility] Comment on above: Order Comment: RESUL T(S) PREVIOUSLY REPORTED ON MANUAL REQUISITION DURING DOWNTIME. Performed By: #### L 501.9100, L500.4050, L400.0001, L505.5000, L100.0100 #### [facility] [address] [place], [address] GAP 7 Normal 5-15 [facility] Comment on above: Order Comment: RESUL T(S) PREVIOUSLY REPORTED ON MANUAL REQUISITION DURING DOWNTIME. Performed By: #### L 501.9100, L500.4050, L400.0001, L505.5000, L100.0100 #### [facility] [address] [place], [address] Potassium [Moles/Vol] 3.5 mmol/L Normal 3.5-5.1 [facility] Comment on above: Order Comment: RESUL T(S) PREVIOUSLY REPORTED ON MANUAL REQUISITION DURING DOWNTIME. Performed By: #### L 501.9100, L500.4050, L400.0001, L505.5000, L100.0100 #### [facility] [address] [place], [address] Sodium [Moles/Vol] 141 mmol/L Normal 136-145 [facility] Comment on above: Order Comment: RESUL T(S) PREVIOUSLY REPORTED ON MANUAL REQUISITION DURING DOWNTIME. Performed By: #### L 501.9100, L500.4050, L400.0001, L505.5000, L100.0100 #### [facility] [address] [place], [address] Albumin [Mass/Vol] 4.1 g/dL Normal 3.2-5.0 [facility] Comment on above: Order Comment: RESUL T(S) PREVIOUSLY REPORTED ON MANUAL REQUISITION DURING DOWNTIME. Performed By: #### L 501.9100, L500.4050, L400.0001, L505.5000, L100.0100 #### [facility] [address] [place], [address] Albumin/Globulin [Mass ratio] 1.0 {ratio} Normal 0.9-2.4 [facility] Comment on above: Order Comment: RESUL T(S) PREVIOUSLY REPORTED ON MANUAL REQUISITION DURING DOWNTIME. Performed By: #### L 501.9100, L500.4050, L400.0001, L505.5000, L100.0100 #### [facility] [address] [place], [address] AST [Catalytic activity/Vol] 13 U/L Low 15-37 [facility] Comment on above: Order Comment: RESUL T(S) PREVIOUSLY REPORTED ON MANUAL REQUISITION DURING DOWNTIME. Performed By: #### L 501.9100, L500.4050, L400.0001, L505.5000, L100.0100 #### [facility] [address] [place], [address] BUN/CRE 14.7 RATIO Normal 10-20 [facility] Comment on above: Order Comment: RESUL T(S) PREVIOUSLY REPORTED ON MANUAL REQUISITION DURING DOWNTIME. Performed By: #### L 501.9100, L500.4050, L400.0001, L505.5000, L100.0100 #### [facility] [address] [place], [address] CA,Total 9.3 mg/dL Normal 8.5-10.1 [facility] Comment on above: Order Comment: RESUL T(S) PREVIOUSLY REPORTED ON MANUAL REQUISITION DURING DOWNTIME. Performed By: #### L 501.9100, L500.4050, L400.0001, L505.5000, L100.0100 #### [facility] [address] [place], [address] Creatinine [Mass/Vol] 0.95 mg/dL Normal 0.55-1.02 [facility] Comment on above: Order Comment: RESUL T(S) PREVIOUSLY REPORTED ON MANUAL REQUISITION DURING DOWNTIME. Result Comment: The validity of the calculated GFR GFRAA in patients over 70 years has not been determined. Clinical correlation is essential. Performed By: #### L 501.9100, L500.4050, L400.0001, L505.5000, L100.0100 #### [facility] [address] [place], [address] EST GFR - AA 76 mL/min Normal >60 [facility] Comment on above: Order Comment: RESUL T(S) PREVIOUSLY REPORTED ON MANUAL REQUISITION DURING DOWNTIME. Performed By: #### L 501.9100, L500.4050, L400.0001, L505.5000, L100.0100 #### [facility] [address] [place], [address] GFR/1.73 sq M.predicted among non-blacks MDRD (S/P/Bld) [Vol rate/Area] 63 mL/min/{1.73_m2} Normal >60 [facility] Comment on above: Order Comment: RESUL T(S) PREVIOUSLY REPORTED ON MANUAL REQUISITION DURING DOWNTIME. Performed By: #### L 501.9100, L500.4050, L400.0001, L505.5000, L100.0100 #### [facility] [address] [place], [address] Globulin (S) [Mass/Vol] 4.1 g/dL Normal 2.2-4.2 [facility] Comment on above: Order Comment: RESUL T(S) PREVIOUSLY REPORTED ON MANUAL REQUISITION DURING DOWNTIME. Performed By: #### L 501.9100, L500.4050, L400.0001, L505.5000, L100.0100 #### [facility] [address] [place], [address] Glucose [Mass/Vol] 93 mg/dL Normal 74-106 [facility] Comment on above: Order Comment: RESUL T(S) PREVIOUSLY REPORTED ON MANUAL REQUISITION DURING DOWNTIME. Performed By: #### L 501.9100, L500.4050, L400.0001, L505.5000, L100.0100 #### [facility] [address] [place], [address] T PROT 8.2 g/dL Normal 6.4-8.2 [facility] Comment on above: Order Comment: RESUL T(S) PREVIOUSLY REPORTED ON MANUAL REQUISITION DURING DOWNTIME. Performed By: #### L 501.9100, L500.4050, L400.0001, L505.5000, L100.0100 #### [facility] [address] [place], [address] Urea nitrogen [Mass/Vol] 14 mg/dL Normal 7-18 [facility] Comment on above: Order Comment: RESUL T(S) PREVIOUSLY REPORTED ON MANUAL REQUISITION DURING DOWNTIME. Performed By: #### L 501.9100, L500.4050, L400.0001, L505.5000, L100.0100 #### [facility] [address] [place], [address] Urinalysis, Completeon 01-14 BILIRUBIN URINE Negative Normal Negative [facility] Comment on above: Order Comment: CLEAN CATCH Performed By: #### L 501.9100, L500.4050, L400.0001, L505.5000, L100.0100 ####[facility] [address] [place], [address] GLUCOSE, UR Normal Normal Normal [facility] Comment on above: Order Comment: CLEAN CATCH Performed By: #### L 501.9100, L500.4050, L400.0001, L505.5000, L100.0100 ####[facility] [address] [place], [address] KETONE UR 5 mg/dl Abnormal Negative [facility] Comment on above: Order Comment: CLEAN CATCH Performed By: #### L 501.9100, L500.4050, L400.0001, L505.5000, L100.0100 ####[facility] [address] [place], [address] LEUK ESTERASE 25 /ul Abnormal Negative [facility] Comment on above: Order Comment: CLEAN CATCH Performed By: #### L 501.9100, L500.4050, L400.0001, L505.5000, L100.0100 ####[facility] [address] [place], [address] Mucus Ql (Urine sed) RARE Normal [facility] Comment on above: Order Comment: CLEAN CATCH Performed By: #### L 501.9100, L500.4050, L400.0001, L505.5000, L100.0100 ####[facility] [address] [place], [address] Nitrite Ql (U) Negative Normal Negative [facility] Comment on above: Order Comment: CLEAN CATCH Performed By: #### L 501.9100, L500.4050, L400.0001, L505.5000, L100.0100 ####[facility] [address] [place], [address] OCCULT BLOOD-UR Negative Normal Negative [facility] Comment on above: Order Comment: CLEAN CATCH Performed By: #### L 501.9100, L500.4050, L400.0001, L505.5000, L100.0100 ####[facility] [address] [place], [address] pH UR 5.0 Normal 5.0 - 8.0 [facility] Comment on above: Order Comment: CLEAN CATCH Performed By: #### L 501.9100, L500.4050, L400.0001, L505.5000, L100.0100 ####[facility] [address] [place], [address] PROT DIPSTX 30 mg/dl Abnormal Negative [facility] Comment on above: Order Comment: CLEAN CATCH Performed By: #### L 501.9100, L500.4050, L400.0001, L505.5000, L100.0100 ####[facility] [address] [place], [address] RBC 0-5 SEEN Normal 0-5 [facility] Comment on above: Order Comment: CLEAN CATCH Performed By: #### L 501.9100, L500.4050, L400.0001, L505.5000, L100.0100 ####[facility] [address] [place], [address] SP.GR. DIPSTX 1.020 Normal 1.002-1.030 [facility] Comment on above: Order Comment: CLEAN CATCH Performed By: #### L 501.9100, L500.4050, L400.0001, L505.5000, L100.0100 ####[facility] [address] [place], [address] UROBILI Normal Normal Normal [facility] Comment on above: Order Comment: CLEAN CATCH Performed By: #### L 501.9100, L500.4050, L400.0001, L505.5000, L100.0100 ####[facility] [address] [place], [address] WBC 0-5 SEEN Normal 0-5 [facility] Comment on above: Order Comment: CLEAN CATCH Performed By: #### L 501.9100, L500.4050, L400.0001, L505.5000, L100.0100 ####[facility] [address] [place], [address] Clarity (U) Clear Normal Clear [facility] Comment on above: Order Comment: CLEAN CATCH Performed By: #### L 501.9100, L500.4050, L400.0001, L505.5000, L100.0100 ####[facility] [address] [place], [address] Color (U) Yellow Normal Yellow [facility] Comment on above: Order Comment: CLEAN CATCH Performed By: #### L 501.9100, L500.4050, L400.0001, L505.5000, L100.0100 ####[facility] [address] [place], [address] BACTERIA 0 SEEN Normal None Seen [facility] Comment on above: Order Comment: CLEAN CATCH Performed By: #### L 501.9100, L500.4050, L400.0001, L505.5000, L100.0100 ####[facility] [address] [place], [address] EPI,SQUAMOUS 0 SEEN Normal 5-10 [facility] Comment on above: Order Comment: CLEAN CATCH Performed By: #### L 501.9100, L500.4050, L400.0001, L505.5000, L100.0100 ####[facility] [address] [place], [address] Urine Drug Screen (VISTA)on 01-15-2024 AMPHETAMINES Positive Abnormal <1000 ng/mL [facility] Comment on above: Order Comment: UNK Performed By: #### L 501.9100, L500.4050, L400.0001, L505.5000, L100.0100 #### [facility] [address] [place], [address] BARBITIURATES Negative Normal < 200 ng/mL [facility] Comment on above: Order Comment: UNK Performed By: #### L 501.9100, L500.4050, L400.0001, L505.5000, L100.0100 #### [facility] [address] [place], [address] BENZODIAZIPINE Negative Normal < 200 ng/mL [facility] Comment on above: Order Comment: UNK Performed By: #### L 501.9100, L500.4050, L400.0001, L505.5000, L100.0100 #### [facility] [address] [place], [address] COCAINE Negative Normal < 300 ng/mL [facility] Comment on above: Order Comment: UNK Performed By: #### L 501.9100, L500.4050, L400.0001, L505.5000, L100.0100 #### [facility] [address] [place], [address] ECSTACY Positive Abnormal < 500 ng/mL [facility] Comment on above: Order Comment: UNK Performed By: #### L 501.9100, L500.4050, L400.0001, L505.5000, L100.0100 #### [facility] [address] [place], [address] METHADONE Negative Normal < 300 ng/mL [facility] Comment on above: Order Comment: UNK Performed By: #### L 501.9100, L500.4050, L400.0001, L505.5000, L100.0100 #### [facility] [address] [place], [address] OPIATES Negative Normal < 300 ng/mL [facility] Comment on above: Order Comment: UNK Performed By: #### L 501.9100, L500.4050, L400.0001, L505.5000, L100.0100 #### [facility] [address] [place], [address] PCP Negative Normal < 25 ng/mL [facility] Comment on above: Order Comment: UNK Performed By: #### L 501.9100, L500.4050, L400.0001, L505.5000, L100.0100 #### [facility] [address] [place], [address] THC Negative Normal < 50 ng/mL [facility] Comment on above: Order Comment: UNK Performed By: #### L 501.9100, L500.4050, L400.0001, L505.5000, L100.0100 #### [facility] [address] [place], [address] VISTA UDS PH 6 Normal [facility] Comment on above: Order Comment: UNK Performed By: #### L 501.9100, L500.4050, L400.0001, L505.5000, L100.0100 #### [facility] [address] [place], [address] 12 Lead EKGon 01-14-2024 12 Lead EKG [facility] [address] [place] [address] 12 Lead EKG 01/14/24 1522 MR#: [id number] Acct: [id number] Name: VERO NGO Rep #: [id number] : 1960 63 From: Yevgeniy Llanes MD Attending Dr: Status: DEP ER Ordering Dr: Sixto Holloway DO Date: 01/14/24 Location: ED Sex: F C Admitted: Test Reason : OD Blood Pressure : / mmHG Vent. Rate : 093 BPM Atrial Rate : 093 BPM P-R Int : 202 ms QRS Dur : 082 ms QT Int : 396 ms P-R-T Axes : 038 -10 021 degrees QTc Int : 492 ms Normal sinus rhythm Minimal voltage criteria for LVH, may be normal variant ( R in aVL ) Prolonged QT Abnormal ECG Confirmed by RUPERTO CLARK, YEVGENIY ([id number]), telegraph editor ALEX WILEY ([id number]) on 01/16/2024 6:20:11 AM Referred By: MINESH Confirmed By:YEVGENIY LLANES MD 01/16/24 0620 Date Yevgeniy Llanes MD CC: SUAD Zabala; Dr. Sixto Holloway, DO Signed Normal [facility] Absolute lymphocyte countOrd ered By: Sixto Holloway on 01-14-2024 Lymphocytes Auto (Unsp spec) [#/Vol] 1.97 10*3/uL 0.83-4.51 [facility] Basophil percentageOrdered B y: Sixto Holloway on 01-14-2024 Basophil percentage 0-5 SEEN /hpf 0-5 [facility] Basophils/100 WBC (Bld) 0.4 % 0-1 [facility] Bilirubin [Mass/Vol] 0.40 mg/dL 0.20-1.00 [facility] Comment on above: For patients on eltr ombopag therapy, use of [facility] TBIL is not recommended. Chloride [Moles/Vol] 105 mmol/L 98-107 [facility] Eosinophils/100 WBC (Bld) 0.2 % 0-5 [facility] Glucose [Mass/Vol] 93 mg/dL 74-106 [facility] Hemoglobin (Bld) [Mass/Vol] 14.9 g/dL 12.0-15.0 [facility] Lymphocytes/100 WBC (Bld) 12.2 % 19-41 [facility] Monocytes/100 WBC (Bld) 6.9 % 0-10 [facility] Neutrophils (Bld) [#/Vol] 12.8 10*3/uL 2.0-7.7 [facility] Neutrophils/100 WBC (Bld) 79.7 % 47-70 [facility] Potassium [Moles/Vol] 3.5 mmol/L 3.5-5.1 [facility] Protein [Mass/Vol] 8.2 g/dL 6.4-8.2 [facility] Sodium [Moles/Vol] 141 mmol/L 136-145 [facility] WBC (Bld) [#/Vol] 16.1 10*3/uL 4.4-11.0 [facility] Bilirubin Test strip Ql (U)O rdered By: Sixto Holloway on 01-14-2024 Bilirubin Ql (U) Negative Negative [facility] Brain/Head without Contrasto n 01-14-2024 Brain/Head without Contrast [facility] Imaging Services [address] [place] [address] Brain/Head without Contrast MR#: [id number] Acct: [id number] Name: VERO NGO Rep #: [id number] : 1960 F 63 From: Vish smith MD PCP: Sammy Zabala NP-C Status: [facility] Study: Brain/Head without Contrast Date of Exam: 01/02 12/28 Exam# [id number] Ordering [place]: [place] [id number] STUDY: CT BRAIN WITHOUT CONTRAST REASON FOR EXAM: Female, 63 years old. UNRESPONSIVE RADIATION DOSAGE (If Supplied By Facility): CTDIvol = ( 47.06 ) mGy, DLP = ( 907.97 ) mGycm TECHNIQUE: Transaxial CT imaging of the brain was performed without administration of intravenous contrast material. Individualized dose optimization techniques were used for this CT. COMPARISON: No relevant priors. FINDINGS: Normal soft tissue structures. Normal calvarium. Normal size ventricles and extra-axial spaces for the patient''s age. Normal white matter tracts of the cerebral hemispheres. Normal basal ganglia and thalami. Normal brainstem. Normal cerebellum. There is no intracranial hemorrhage. There are no findings of an acute ischemic infarction. Normal visualized paranasal sinuses. CT/Brain/Head without Contrast IMPRESSION: Normal unenhanced CT scan of the brain. Electronically Signed: Vish Rodriguez MD at 16:24 EDT , CC: SUAD Zabala; Dr. Sixto Holloway DO Receiving Checker: Signed Normal [facility] Chest 1 View (Portable)on Chest 1 View (Portable) [facility] [address] [place] [address] Chest 1 View (Portable) MR#: [id number] Acct: [id number] Name: VERO NGO Rep #: [id number] : 1960 F 63 From: Vish smith MD PCP: SUAD Madison Status: DEP ER Study: Chest 1 View (Portable) Date of Exam: 01/14/24 Exam# [id number] Ordering Dr: [place] [id number] STUDY: X-RAY CHEST REASON FOR EXAM: Female, 63 years old. UNRESPONSIVE TECHNIQUE: Single AP portable view of the chest. COMPARISON: None. FINDINGS: Normal lung volumes. Patchy airspace density in both lung bases worse on the left suggestive of atelectasis or infiltrate. Consider further evaluation with CT of the chest. No effusions. Normal size heart. Normal mediastinum and mike. Normal visualized pulmonary arteries. There is atherosclerotic calcification of the aortic arch with tortuosity. Normal visualized thoracic spine. Normal visualized ribs, clavicles, and shoulders. There is no demonstrated abnormality of the visualized soft tissue structures of the upper abdomen. RAD/Chest 1 View (Portable) IMPRESSION: Patchy airspace density in both lung bases worse on the left suggestive of atelectasis or infiltrate. Consider further evaluation with CT of the chest. Electronically Signed: Vish Rodriguez MD at 17:15 EDT , CC: SUAD Zabala; Dr. Sixto Holloway DO Receiving Checker: Signed Normal [facility] Determination of erythrocyte mean corpuscular volume (MCV)Ordered By: Sixto Holloway on 01-14-2024 MCV (RBC) [Entitic vol] 92.8 fL 81-99 [facility] Emergency Department Summary on 01-14-2024 Emergency Department Summary [facility] Medical Records Department [address] [place] [address] Emergency Department Summary 01/14/24 MR#: [id number] Acct: [id number] Name: VERO NGO Rep #: [id number] : 1960 63 From: Sixto Harry PCP: SUAD Madison Status:REG ER Location: ED ADDENDUM by Dr. Ina Pacheco DO on 01/14/24 at 1944 Patient signed out to me due to shift change. Patient been discharged however with family was getting her up she started complaint of increased left leg pain and then it came out the patient had a fall couple weeks ago. She is not having more pain localized to her hip. I will add on hip x- ray. On exam she is also complaining of continued left carter pain I do not appreciate any edema. She has tenderness palpation over the left greater trochanter and pain with range of motion of the hip. X-ray obtained which is interpreted by myself as well as radiology does not show any acute fracture or dislocation. Patient is given Tylenol. Would not give anything sedating given the patient's presentation. Will start the patient on a prednisone burst this suspect this is more radicular pain. Patient and family agreeable with this plan. Patient discharged home. Has a walker to use. 01/14/241943 Cosigner Signature (if applicable): cc: SUAD Zabala * Signed HPI History of Present Illness Chief Complaint: Overdose Narrative Narrative: Delayed note due to unexpected system downtime. Brought in by EMS for concerns for overdose. Patient found by family member slumped over there was a pill bottle reporting methamphetamines. She has a history of Suboxone use. Blood glucose was 212. No other information at this time. [facility] Medical History (Updated 01/14/24 @ 17:[address] Sixto Holloway DO) Angina pectoris Anxiety CAD (coronary artery disease) Chronic bronchitis Chronic pain Depression Diverticulitis Dyspnea Emphysema lung Hepatitis C HLD (hyperlipidemia) Hyperhidrosis Interstitial lung disease Multiple thyroid nodules Neuropathic pain Palpitations Rheumatoid arthritis Stage 2 moderate COPD by GOLD classification Tobacco abuse Home Medications amitriptyline 50 mg tablet 100 mg PO QHS 01/26/14 [History Last Taken Unknown] atorvastatin 80 mg tablet (Lipitor) 80 mg PO DAILY 07/16/18 [History Last Taken Unknown] buprenorphine 4 mg-naloxone 1 mg sublingual film (Suboxone) 1 film sublingual .COMPLEX 07/16/18 [History Last Taken Unknown] cholecalciferol (vitamin D3) 1,250 mcg (50,000 unit) capsule 50,000 unit PO QWEEK 07/16/18 [History Last Taken Unknown] gabapentin 800 mg tablet (Neurontin) 800 mg PO .qid 07/16/18 [History Last Taken Unknown] lorazepam 0.5 mg tablet (Ativan) 0.5 mg PO TID 07/16/18 [History Last Taken Unknown] lurasidone 60 mg tablet (Latuda) 60 mg PO DAILY 09/13/20 [History Last Taken Unknown] baclofen 10 mg tablet 10 mg PO QHS PRN muscle spasm 08/24/22 [History Last Taken Unknown] ipratropium 0.5 mg-albuterol 3 mg (2.5 mg base)/3 mL nebulization soln 3 ml inhalation Q4H PRN PRN SOB /OR WHEEZING #180 mL 08/24/22 [Rx Last Taken Unknown] Nebulizer Compressor #1 ea 01/09/23 [Rx Last Taken Unknown] PEP device #1 ea 05/01/23 [Rx Last Taken Unknown] PEP device #1 ea 05/01/23 [Rx Last Taken Unknown] budesonide 160 mcg-glycopyr 9 mcg-formot 4.8 mcg/actuation HFA inhaler (Breztri Aerosphere) 2 inh inhalation BID #10.7 grams 05/01/23 [Rx Last Taken Unknown] cefdinir 300 mg capsule 300 mg PO Q12H #14 caps 01/14/24 [Rx Last Taken Unknown] Allergy/AdvReac Type Severity Reaction Status Date / Time No Known Allergies Allergy Verified 05/28/23 02:19 Family History Mother CAD (coronary artery disease) stents Hypertension Heart disease Sister CAD (coronary artery disease) Diabetes Father Diabetes Heart disease Hypertension Surgical History H/O foot surgery H/O total hysterectomy History of bilateral carpal tunnel release History of lung surgery History of tonsillectomy Social History Smoking Status: Current every day smoker tobacco type: cigarettes Tobacco: How many years used: 54 alcohol intake: never substance use type: does not use ROS ROS ED Review of Systems ROS Unobtainable: due to mental status EXAM Physical Exam Const Vital Signs: 01/14/24 16:30 01/14/24 16:54 01/14/24 15:00 Temperature 97.0 F L Temperature Source Temporal Pulse Rate 86 92 Respiratory Rate 12 13 Blood Pressure 114/67 125/69 H Blood Pressure Mean 82 87 Pulse Ox 93 93 95 Oxygen Delivery Method Nasal Cannula Nasal Cannula Nasal Cannula Oxygen Flow Rate (L/min) 2 2 4 01/14/24 14:56 Temperature 97.5 F L (more content not included)... Normal [facility] Erythrocyte distribution wid th ratioOrdered By: Sixto Holloway on 01-14-2024 Erythrocyte distribution width (RBC) [Ratio] 13.0 % 11.6-14.6 [facility] HIP, UNI W/ Pelvis 2-3 Views on 01-14-2024 HIP, UNI W/ Pelvis 2-3 Views [facility] Imaging Services [address] [place] [address] HIP, UNI W/ Pelvis 2-3 Views MR#: [id number] Acct: [id number] Name: VERO NGO Rep #: [id number] : 1960 F 63 From: Vish smith MD PCP: SUAD Madison Status: DEP ER Study: HIP, UNI W/ Pelvis 2-3 Views Date of Exam: 10/27 Exam# [id number] Ordering [place]: [place] [id number] STUDY: X-RAY - PELVIS AND LEFT HIP REASON FOR EXAM: Female, 63 years old. PAIN TECHNIQUE: 3 views of the pelvis and hip. COMPARISON: None. FINDINGS: There is a non-specific bowel gas pattern. Normal visualized soft tissue structures. Normal bilateral iliac wings, sacroiliac joints and visualized sacrum. Normal bilateral superior and inferior pubic rami. Normal pubic symphysis. Normal bilateral ischial tuberosities. Normal visualized femoral head. Normal acetabulum. Normal hip joint. RAD/HIP, UNI W/ Pelvis 2-3 Views IMPRESSION: Normal x-ray examination of the pelvis and hip. Electronically Signed: Vish Rodriguez MD at 19:28 EDT , CC: SUAD Zabala; Dr. Ina Pacheco DO Receiving Checker: Signed Normal [facility] Hematocrit Auto (Bld) [Volum e fraction]Ordered By: Sixto Holloway on 01-14-2024 Hematocrit (Bld) [Volume fraction] 45.0 % 37-47 [facility] Ketones Test strip Ql (U)Ord ered By: Sixto Holloway on 01-14-2024 Ketones Ql (U) 5 mg/dl Negative [facility] Laboratory - Chemistry and C hemistry - challengeOrdered By: Sixto Holloway on 01-14-2024 Albumin/Globulin [Mass ratio] 1.0 {ratio} 0.9-2.4 [facility] ALP [Catalytic activity/Vol] 128 U/L 45-117 [facility] ALT [Catalytic activity/Vol] 17 U/L 13-56 [facility] CO2 [Moles/Vol] 29.0 mmol/L 21.0-32.0 [facility] Globulin (S) [Mass/Vol] 4.1 g/dL 2.2-4.2 [facility] Urea nitrogen/Creatinine [Mass ratio] 14.7 mg/mg 10-20 [facility] Laboratory - Drug toxicology Ordered By: Sixto Holloway on 01-14-2024 Amphetamines Ql (U) Positive <1000 ng/mL [facility] Benzodiazepines Ql (U) Negative < 200 ng/mL [facility] Cannabinoids Screen Ql (U) Negative < 50 ng/mL [facility] Cocaine Ql (U) Negative < 300 ng/mL [facility] Opiates Ql (U) Negative < 300 ng/mL [facility] Laboratory - Hematology and Cell countsOrdered By: Sixto Holloway on 01-14-2024 Erythrocyte distribution width (RBC) [Entitic vol] 43.7 fL 35.1-43.9 [facility] Immature granulocytes/100 WBC (Bld) 0.600 % 0.0-0.9 [facility] Comment on above: IG% - Immature Granu locytes (promyelocytes, myelocytes and metamyelocytes) > 1% indicates that a LEFT SHIFT is Present. MCH (RBC) [Entitic mass] 30.7 pg 27.0-32.0 [facility] MCHC (RBC) [Mass/Vol] 33.1 g/dL 32-36 [facility] Platelet mean volume (Bld) [Entitic vol] 10.4 fL 6.2-12.0 [facility] Mucus LM Ql (Urine sed)Order ed By: Sixto Holloway on 01-14-2024 Mucus Ql (Urine sed) RARE /hpf [facility] Nitrite Test strip Ql (U)Ord ered By: Sixto Holloway on 01-14-2024 Nitrite Ql (U) Negative Negative [facility] No Panel InformationOrdered By: Sixto Holloway on 01-14-2024 MDMA (Ecstasy) Screen Positive < 500 ng/mL [facility] Urine Barbiturates Screen Negative < 200 ng/mL [facility] Urine Drug Screen Comment [facility] Comment on above: CONFIRMATORY TESTING FOR ALL POSITIVE URINE DRUG SCREENRESULTS WILL ONLY BE SENT OUT UPON PHYSICIAN ORDER. VISTA Urine Drug Screen methods provide only preliminaryanalytical test results. A more specific alternate chemicalmethod must be used in order to obtain a confirmedanalytical result. Gas chromatography/mass spectrometery(GC/MS) is the preferred confirmatory method. Clinicalconsideration and professional judgement should be appliedto any drug of abuse test result, particularly whenpreliminary positive results are used. URINE TCA TESTING MUST BE ORDERED SEPARATELY. USE TESTMNEMONIC: [facility] Urine Methadone Screen Negative < 300 ng/mL [facility] Urine RBC 0-5 SEEN /hpf 0-5 [facility] Estimated GFR (MDRD) Amer 76 mL/min >60 [facility] Estimated GFR (MDRD) Non-Af Amer 63 mL/min >60 [facility] Ethyl Alcohol Level < 3.0 mg/dL [facility] Comment on above: The serum:whole bloo d ethanol ratio is approximately 1.14and varies slightly with hematocrit. Medical Alcohol reference interval and critical value innon-tolerant individuals; 50 - 100 Impairment 100 Intoxication 100 - 250 Severe Poisoning 250 - 400 Deep/possible fatal comaRESULT(S) PREVIOUSLY REPORTED ON MANUAL REQUISITION DURINGDOWNTIME. Platelets bldOrdered By: Black Holloway on 01-14-2024 Platelets (Bld) [#/Vol] 262 10*3/uL 150-450 [facility] Protein Test strip Ql (U)Ord ered By: Sixto Holloway on 01-14-2024 Protein Ql (U) 30 mg/dl Negative [facility] RBC Auto (Bld) [#/Vol]Ordere d By: Sixto Holloway on 01-14-2024 RBC (Bld) [#/Vol] 4.85 10*6/uL 4.2-5.4 [facility] Serum or plasma calcium lenny urement (mass/volume)Ordered By: Sixto Holloway on 01-14-2024 Calcium [Mass/Vol] 9.3 mg/dL 8.5-10.1 [facility] Serum or plasma creatinine m easurement (mass/volume)Ordered By: Sixto Holloway on 01-14-2024 Creatinine [Mass/Vol] 0.95 mg/dL 0.55-1.02 [facility] Comment on above: The validity of the calculated GFR & GFRAA in patients over 70 years has not been determined. Clinical correlation is essential. Serum or plasma urea nitroge n measurement (mass/volume)Ordered By: Sixto Holloway on 01-14-2024 Urea nitrogen [Mass/Vol] 14 mg/dL 7-18 [facility] Squamous epithelial cells de tection in urine sediment by light microscopyOrdered By: Sixto Holloway on 01-14-2024 Epithelial cells.squamous LM Ql (Urine sed) 0 SEEN /hpf 5-10 [facility] Thin prep Papanicolaou smear with manual screeningOrdered By: Sixto Holloway on 01-14-2024 Thin prep Papanicolaou smear with manual screening 4.1 g/dL 3.2-5.0 [facility] Thin prep Papanicolaou smear with manual screening 13 U/L 15-37 [facility] Thin prep Papanicolaou smear with manual screening 7 5-15 [facility] US THYROIDon 01-14-2024 US THYROID ORIGINAL EXAMINATION: ULTRASOUND OF THE THYROID WITH COLOR DOPPLER FLOW EVALUATION01/13/2024 3:56 pm Ultrasound Thyroid COMPARISON: None HISTORY: ORDERING SYSTEM PROVIDED HISTORY: Reason for Exam: Nodules noted incidentally on Chest CT, FINDINGS: Size right thyroid lobe: 6.4 x 2.7 x 2.9 cm Size left thyroid lobe: 5.2 x 2.2 x 1 point cm Size isthmus: 0.4 cm Texture: Heterogeneous Estimated total number of nodules greater than or equal to 1 cm: 2 Nodule#: # 1: Maximum size: 3.9 cm . All dimensions: 3.9 x 2.8 x 2.7 cm Location: Right Lower Composition: spongiform: 0 points Echogenicity: isoechoic: 1 point Shape: wider than tall: 0 points Margins: lobulated/irregular: 2 points Echogenic foci: none: 0 points ACR Total Points: 3; ACR TI-RADS risk category: TR3 - mildly suspicious nodule. Nodule #: # 2: Maximum size: 2.6 cm . Size: 2.6 x 1.8 x 0.9 cm Location: Left Lower Composition: spongiform: 0 points Echogenicity: isoechoic: 1 point Shape: taller than wide: 3 points Margins: smooth: 0 points Echogenic foci: none: 0 points ACR Total Points: 4; ACR TI-RADS risk category: TR4 - moderately suspicious nodule. IMPRESSION: 1. Nodule 1: ACR TI-RADS date CATEGORY 3. 2. Nodule 2: ACR TI-RADS date CATEGORY 4. 1. Nodule 1: TR 3, recommend: Recommend ultrasound-guided fine-needle aspiration. 2. Nodule 2: ACR TI-RADS 2017 Category TR 4 recommend: Ultrasound-guided fine needle aspiration ACR TI-RADS 2017 Recommendations: TR1(0 points) : No FNA or follow up TR2 (2 points) : No FNA or follow up TR3 (3 points) : FNA if >/= 2.5 cm, follow up if 1.5 - 2.4 cm in 1, 3, and 5 years TR4 (4-6 points) : FNA if >/= 1.5 cm, follow up if 1.0 - 1.4 cm in 1, 2, 3, and 5 years TR5 (>/= 7 points) : FNA if >/= 1.0 cm, follow up if 0.5 - 0.9 cm every year for 5 years *ACR TI-RADS recommends that no more than two nodules with the highest ACR TI-RADS total point should be biopsied and no more than four nodules should be followed. Interpreted by: Moises Dent DO Preliminary Report By: Moises Dent DO Electronically signed By Moises Dent DO Dictated Date: 01/14/2024 10:13:07 AM Prelim Date: 01/14/2024 10:19:59 AM Sign Date: 01/14/2024 10:19:59 AM Ordering Provider: COTY OLSEN [facility] ([place] Urine blood detectionOrdered By: Sixto Holloway on 01-14-2024 RBC Ql (U) Negative Negative [facility] Urine clarityOrdered By: Black Holloway on 01-14-2024 Clarity (U) Clear Clear [facility] Urine color determinationOrd ered By: Sixto Holloway on 01-14-2024 Color (U) Yellow Yellow [facility] Urine glucose detectionOrder ed By: Sixto Holloway on 01-14-2024 Glucose Ql (U) Normal mg/dl Normal [facility] Urine leukocyte esterase det ection by dipstickOrdered By: Sixto Holloway on 01-14-2024 Leukocyte esterase Test strip Ql (U) 25 /ul Negative [facility] Urine pHOrdered By: Sixto Holloway on 01-14-2024 pH (U) 5.0 [pH] 5.0 - 8.0 [facility] Urine phencyclidine (PCP) de tectionOrdered By: Sixto Holloway on 01-14-2024 Phencyclidine Ql (U) Negative < 25 ng/mL [facility] Urine sediment bacteria coun t by microscopy (number/high power field)Ordered By: Sixto Holloway on 01-14-2024 Bacteria LM.HPF (Urine sed) [#/Area] 0 /[HPF] None Seen [facility] Urine specific gravity measu rementOrdered By: Sixto Holloway on 01-14-2024 Specific gravity (U) [Rel density] 1.020 1.002-1.030 [facility] Urine urobilinogen measureme ntOrdered By: Sixto Holloway on 01-14-2024 Urobilinogen Ql (U) Normal mg/dl Normal [facility] LABORATORYOrdered By: SYSTEM SYSTEM on 05-31-2023 Basophils (Bld) [#/Vol] 0.1 103/mcL Invalid Interpretation Code 0.0 - 0.3 10^3/mcL Workflow SS Basophils/100 WBC (Bld) 0.7 % Invalid Interpretation Code 0.0 - 2.5 % Workflow SS Calcium [Mass/Vol] 9.1 mg/dL Invalid Interpretation Code 8.7 - 10.4 mg/dL ADM SS Chloride [Moles/Vol] 108 mmol/L Invalid Interpretation Code 98 - 110 mEq/L ADM SS CO2 [Moles/Vol] 26 mmol/L Invalid Interpretation Code 22 - 32 mEq/L ADM SS Creatinine [Mass/Vol] 0.58 mg/dL Invalid Interpretation Code 0.50 - 1.20 mg/dL ADM SS Electrolyte Balance 11.0 mEq/L Invalid Interpretation Code 4.0 - 15.0 mEq/L ADM SS Eosinophils (Bld) [#/Vol] 0.1 103/mcL Invalid Interpretation Code 0.0 - 0.7 10^3/mcL Workflow SS Eosinophils/100 WBC (Bld) 1.3 % Invalid Interpretation Code 0.0 - 6.0 % Workflow SS Erythrocyte distribution width (RBC) [Ratio] 16.1 % Invalid Interpretation Code 11.5 - 15.5 % Workflow SS GFR/1.73 sq M.predicted among blacks MDRD (S/P/Bld) [Vol rate/Area] ml/min/1.73sqm Invalid Interpretation Code Chemistry S Comment on above: Interpretive Data: GFR Population mean for , Non- Americans Ages 20-29 = 116 mL/min/1.73 sq.m. Ages 30-39 = 107 mL/min/1.73 sq.m. Ages 40-49 = 99 mL/min/1.73 sq.m. Ages 50-59 = 93 mL/min/1.73 sq.m. Ages 60-69 = 85 mL/min/1.73 sq.m. Ages 70+ = 75 mL/min/1.73 sq.m. Chronic Kidney Disease: Less than 60 mL/min/1.73 square meters End Stage Renal Disease: Less than 15 mL/min/1.73 square meters GFR/1.73 sq M.predicted among non-blacks MDRD (S/P/Bld) [Vol rate/Area] ml/min/1.73sqm Invalid Interpretation Code Chemistry S Comment on above: Interpretive Data: GFR Population mean for , Non- Americans Ages 20-29 = 116 mL/min/1.73 sq.m. Ages 30-39 = 107 mL/min/1.73 sq.m. Ages 40-49 = 99 mL/min/1.73 sq.m. Ages 50-59 = 93 mL/min/1.73 sq.m. Ages 60-69 = 85 mL/min/1.73 sq.m. Ages 70+ = 75 mL/min/1.73 sq.m. Chronic Kidney Disease: Less than 60 mL/min/1.73 square meters End Stage Renal Disease: Less than 15 mL/min/1.73 square meters Glucose [Mass/Vol] 70 mg/dL Invalid Interpretation Code 82 - 115 mg/dL ADM SS Hematocrit (Bld) [Volume fraction] 46.1 % Invalid Interpretation Code 34.0 - 46.0 % Workflow SS Hemoglobin (Bld) [Mass/Vol] 15.4 G/dL Invalid Interpretation Code 12.0 - 16.0 G/dL Workflow SS Lymphocytes (Bld) [#/Vol] 2.9 103/mcL Invalid Interpretation Code 0.9 - 4.3 10^3/mcL AH Workflow SS Lymphocytes/100 WBC (Bld) 36.2 % Invalid Interpretation Code 20.0 - 40.0 % AH Workflow SS Magnesium [Mass/Vol] 1.9 mg/dL Invalid Interpretation Code 1.6 - 2.4 mg/dL ADM SS MCH (RBC) [Entitic mass] 30.4 pg Invalid Interpretation Code 27.0 - 33.0 pg AH Workflow SS MCHC 33.4 G/dL Invalid Interpretation Code 32.0 - 36.0 G/dL AH Workflow SS MCV (RBC) [Entitic vol] 90.9 fL Invalid Interpretation Code 80.0 - 99.0 fL Workflow SS Monocytes (Bld) [#/Vol] 0.6 103/mcL Invalid Interpretation Code 0.1 - 1.4 10^3/mcL AH Workflow SS Monocytes/100 WBC (Bld) 8.0 % Invalid Interpretation Code 2.0 - 13.0 % Workflow SS Neutrophils (Bld) [#/Vol] 4.3 103/mcL Invalid Interpretation Code 2.3 - 8.1 10^3/mcL AH Workflow SS Neutrophils/100 WBC (Bld) 53.8 % Invalid Interpretation Code 50.0 - 75.0 % Workflow SS Platelet mean volume (Bld) [Entitic vol] 7.7 fL Invalid Interpretation Code 6.6 - 10.5 fL AH Workflow SS Platelets (Bld) [#/Vol] 200 103/mcL Invalid Interpretation Code 150 - 450 10^3/mcL AH Workflow SS Potassium [Moles/Vol] 3.5 mmol/L Invalid Interpretation Code 3.5 - 5.0 mEq/L ADM SS RBC (Bld) [#/Vol] 5.07 106/mcL Invalid Interpretation Code 4.10 - 5.30 10^6/mcL AH Workflow SS Sodium [Moles/Vol] 145 mmol/L Invalid Interpretation Code 136 - 145 mEq/L ADM SS Urea nitrogen [Mass/Vol] 10.0 mg/dL Invalid Interpretation Code 8.0 - 22.0 mg/dL ADM SS Urea nitrogen/Creatinine [Mass ratio] 17.2 ratio Invalid Interpretation Code 10.0 - 22.0 ratio ADM SS WBC (Bld) [#/Vol] 8.0 103/mcL Invalid Interpretation Code 4.5 - 10.8 10^3/mcL AH Workflow SS LABORATORYOrdered By: SYSTEM SYSTEM on 05-30-2023 Albumin BCP dye [Mass/Vol] 3.6 G/dL Invalid Interpretation Code 3.2 - 4.8 G/dL AH ADM SS Albumin/Globulin [Mass ratio] 1.2 {ratio} Invalid Interpretation Code 0.9 - 1.6 ratio AH ADM SS ALP [Catalytic activity/Vol] 95 U/L Invalid Interpretation Code 38 - 126 U/L AH ADM SS ALT No additional P-5'-P [Catalytic activity/Vol] 13 U/L Invalid Interpretation Code 10 - 49 U/L AH ADM SS AST [Catalytic activity/Vol] 17 U/L Invalid Interpretation Code 8 - 34 U/L AH ADM SS Bilirubin [Mass/Vol] 0.40 mg/dL Invalid Interpretation Code 0.20 - 1.20 mg/dL AH ADM SS Comment on above: Interpretive Data: U se of this assay is not recommended for patients undergoing treatment with eltrombopag due to the potential for falsely elevated results. Calcium [Mass/Vol] 8.9 mg/dL Invalid Interpretation Code 8.7 - 10.4 mg/dL AH ADM SS Chloride [Moles/Vol] 109 mmol/L Invalid Interpretation Code 98 - 110 mEq/L AH ADM SS CO2 [Moles/Vol] 27 mmol/L Invalid Interpretation Code 22 - 32 mEq/L AH ADM SS Creatinine [Mass/Vol] 0.53 mg/dL Invalid Interpretation Code 0.50 - 1.20 mg/dL AH ADM SS Electrolyte Balance 10.0 mEq/L Invalid Interpretation Code 4.0 - 15.0 mEq/L AH ADM SS GFR/1.73 sq M.predicted among blacks MDRD (S/P/Bld) [Vol rate/Area] ml/min/1.73sqm Invalid Interpretation Code Chemistry S Comment on above: Interpretive Data: GFR Population mean for , Non- Americans Ages 20-29 = 116 mL/min/1.73 sq.m. Ages 30-39 = 107 mL/min/1.73 sq.m. Ages 40-49 = 99 mL/min/1.73 sq.m. Ages 50-59 = 93 mL/min/1.73 sq.m. Ages 60-69 = 85 mL/min/1.73 sq.m. Ages 70+ = 75 mL/min/1.73 sq.m. Chronic Kidney Disease: Less than 60 mL/min/1.73 square meters End Stage Renal Disease: Less than 15 mL/min/1.73 square meters GFR/1.73 sq M.predicted among non-blacks MDRD (S/P/Bld) [Vol rate/Area] ml/min/1.73sqm Invalid Interpretation Code Chemistry S Comment on above: Interpretive Data: GFR Population mean for , Non- Americans Ages 20-29 = 116 mL/min/1.73 sq.m. Ages 30-39 = 107 mL/min/1.73 sq.m. Ages 40-49 = 99 mL/min/1.73 sq.m. Ages 50-59 = 93 mL/min/1.73 sq.m. Ages 60-69 = 85 mL/min/1.73 sq.m. Ages 70+ = 75 mL/min/1.73 sq.m. Chronic Kidney Disease: Less than 60 mL/min/1.73 square meters End Stage Renal Disease: Less than 15 mL/min/1.73 square meters Globulin 3.1 G/dL Invalid Interpretation Code 1.5 - 3.8 G/dL ADM SS Glucose [Mass/Vol] 129 mg/dL Invalid Interpretation Code 82 - 115 mg/dL ADM SS Potassium [Moles/Vol] 3.3 mmol/L Invalid Interpretation Code 3.5 - 5.0 mEq/L ADM SS Protein [Mass/Vol] 6.7 G/dL Invalid Interpretation Code 5.7 - 8.2 G/dL ADM SS Comment on above: Interpretive Data: * *Note - New Reference Range in effect 20 Sodium [Moles/Vol] 146 mmol/L Invalid Interpretation Code 136 - 145 mEq/L ADM SS Urea nitrogen [Mass/Vol] 12.0 mg/dL Invalid Interpretation Code 8.0 - 22.0 mg/dL ADM SS Urea nitrogen/Creatinine [Mass ratio] 22.6 ratio Invalid Interpretation Code 10.0 - 22.0 ratio ADM SS LABORATORYOrdered By: SYSTEM SYSTEM on 05-29-2023 Magnesium [Mass/Vol] 2.0 mg/dL Invalid Interpretation Code 1.6 - 2.4 mg/dL ADM SS Basophils (Bld) [#/Vol] 0.0 103/mcL Invalid Interpretation Code 0.0 - 0.3 10^3/mcL AH Workflow SS Basophils/100 WBC (Bld) 0.5 % Invalid Interpretation Code 0.0 - 2.5 % AH Workflow SS Calcium [Mass/Vol] 8.9 mg/dL Invalid Interpretation Code 8.7 - 10.4 mg/dL ADM SS Chloride [Moles/Vol] 112 mmol/L Invalid Interpretation Code 98 - 110 mEq/L ADM SS CK [Catalytic activity/Vol] 103 U/L Invalid Interpretation Code 7 - 185 U/L ADM SS CO2 [Moles/Vol] 25 mmol/L Invalid Interpretation Code 22 - 32 mEq/L ADM SS Creatinine [Mass/Vol] 0.57 mg/dL Invalid Interpretation Code 0.50 - 1.20 mg/dL ADM SS Electrolyte Balance 9.0 mEq/L Invalid Interpretation Code 4.0 - 15.0 mEq/L ADM SS Eosinophils (Bld) [#/Vol] 0.1 103/mcL Invalid Interpretation Code 0.0 - 0.7 10^3/mcL Workflow SS Eosinophils/100 WBC (Bld) 0.6 % Invalid Interpretation Code 0.0 - 6.0 % Workflow SS Erythrocyte distribution width (RBC) [Ratio] 16.5 % Invalid Interpretation Code 11.5 - 15.5 % Workflow SS GFR/1.73 sq M.predicted among blacks MDRD (S/P/Bld) [Vol rate/Area] ml/min/1.73sqm Invalid Interpretation Code Chemistry S Comment on above: Interpretive Data: GFR Population mean for , Non- Americans Ages 20-29 = 116 mL/min/1.73 sq.m. Ages 30-39 = 107 mL/min/1.73 sq.m. Ages 40-49 = 99 mL/min/1.73 sq.m. Ages 50-59 = 93 mL/min/1.73 sq.m. Ages 60-69 = 85 mL/min/1.73 sq.m. Ages 70+ = 75 mL/min/1.73 sq.m. Chronic Kidney Disease: Less than 60 mL/min/1.73 square meters End Stage Renal Disease: Less than 15 mL/min/1.73 square meters GFR/1.73 sq M.predicted among non-blacks MDRD (S/P/Bld) [Vol rate/Area] ml/min/1.73sqm Invalid Interpretation Code Chemistry S Comment on above: Interpretive Data: GFR Population mean for , Non- Americans Ages 20-29 = 116 mL/min/1.73 sq.m. Ages 30-39 = 107 mL/min/1.73 sq.m. Ages 40-49 = 99 mL/min/1.73 sq.m. Ages 50-59 = 93 mL/min/1.73 sq.m. Ages 60-69 = 85 mL/min/1.73 sq.m. Ages 70+ = 75 mL/min/1.73 sq.m. Chronic Kidney Disease: Less than 60 mL/min/1.73 square meters End Stage Renal Disease: Less than 15 mL/min/1.73 square meters Glucose [Mass/Vol] 105 mg/dL Invalid Interpretation Code 82 - 115 mg/dL ADM SS Hematocrit (Bld) [Volume fraction] 43.2 % Invalid Interpretation Code 34.0 - 46.0 % Workflow SS Hemoglobin (Bld) [Mass/Vol] 14.4 G/dL Invalid Interpretation Code 12.0 - 16.0 G/dL Workflow SS Lymphocytes (Bld) [#/Vol] 2.5 103/mcL Invalid Interpretation Code 0.9 - 4.3 10^3/mcL Workflow SS Lymphocytes/100 WBC (Bld) 24.9 % Invalid Interpretation Code 20.0 - 40.0 % Workflow SS MCH (RBC) [Entitic mass] 30.2 pg Invalid Interpretation Code 27.0 - 33.0 pg AH Workflow SS MCHC 33.3 G/dL Invalid Interpretation Code 32.0 - 36.0 G/dL Workflow SS MCV (RBC) [Entitic vol] 90.7 fL Invalid Interpretation Code 80.0 - 99.0 fL Workflow SS Monocytes (Bld) [#/Vol] 0.9 103/mcL Invalid Interpretation Code 0.1 - 1.4 10^3/mcL Workflow SS Monocytes/100 WBC (Bld) 9.0 % Invalid Interpretation Code 2.0 - 13.0 % Workflow SS Neutrophils (Bld) [#/Vol] 6.5 103/mcL Invalid Interpretation Code 2.3 - 8.1 10^3/mcL Workflow SS Neutrophils/100 WBC (Bld) 65.0 % Invalid Interpretation Code 50.0 - 75.0 % AH Workflow SS Platelet mean volume (Bld) [Entitic vol] 7.6 fL Invalid Interpretation Code 6.6 - 10.5 fL AH Workflow SS Platelets (Bld) [#/Vol] 211 103/mcL Invalid Interpretation Code 150 - 450 10^3/mcL AH Workflow SS Potassium [Moles/Vol] 3.5 mmol/L Invalid Interpretation Code 3.5 - 5.0 mEq/L AH ADM SS RBC (Bld) [#/Vol] 4.77 106/mcL Invalid Interpretation Code 4.10 - 5.30 10^6/mcL AH Workflow SS Sodium [Moles/Vol] 146 mmol/L Invalid Interpretation Code 136 - 145 mEq/L AH ADM SS Urea nitrogen [Mass/Vol] 14.0 mg/dL Invalid Interpretation Code 8.0 - 22.0 mg/dL AH ADM SS Urea nitrogen/Creatinine [Mass ratio] 24.6 ratio Invalid Interpretation Code 10.0 - 22.0 ratio AH ADM SS WBC (Bld) [#/Vol] 10.0 103/mcL Invalid Interpretation Code 4.5 - 10.8 10^3/mcL AH Workflow SS 12 Lead EKGon 05-28-2023 12 Lead EKG [facility] [address] [place] [id number] 12 Lead EKG 05/28/239 MR#: [id number] Acct: [id number] Name: VERO NGO Rep #: [id number] : 1960 62 From: Yevgeniy Llanes MD Attending Dr: Status: DEP ER Ordering Dr: Trenton Sarmiento MD Date: 05/28/23 Location: ED Sex: F C Admitted: Test Reason : DYSRHYTHMIA Blood Pressure : / mmHG Vent. Rate : 090 BPM Atrial Rate : 090 BPM P-R Int : 170 ms QRS Dur : 076 ms QT Int : 406 ms P-R-T Axes : 038 011 024 degrees QTc Int : 496 ms Normal sinus rhythm Prolonged QT Abnormal ECG Confirmed by RUPERTO CLARK, YEVGENIY ([id number]), telegraph editor YVONNE IZQUIERDO ([id number]) on 05/29/2023 9:33:10 AM Referred By: HARLEY Confirmed By:YEVGENIY LLANES MD 05/29/23 0933 Date Yevgeniy Llanes MD CC: Dr. Trenton Sarmiento MD; Dr. Andry Beatty MD Signed Normal [facility] Alcohol, Blood (Medical)-Ser umon 05-28-2023 SERUM ETOH < 3.0 Normal [facility] Comment on above: Result Comment: The serum:whole blood ethanol ratio is approximately 1.14 and varies slightly with hematocrit. Medical Alcohol reference interval and critical value in non-tolerant individuals; 50 - 100 Impairment 100 Intoxication 100 - 250 Severe Poisoning 250 - 400 Deep/possible fatal coma Performed By: #### L 100.0100, L501.9100, L500.4050 #### [facility] [address] [place], [address] CBC W/Diff, Automatedon 05-05 Absolute Lymph 1.81 X10 3/uL Normal 0.83-4.51 [facility] Comment on above: Performed By: #### L 100.0100, L501.9100, L500.4050 #### [facility] [address] [place], [address] Absolute Neut 6.0 X10 3/uL Normal 2.0-7.7 [facility] Comment on above: Performed By: #### L 100.0100, L501.9100, L500.4050 #### [facility] [address] [place], [address] Basophils/100 WBC (Bld) 0.6 % Normal 0-1 [facility] Comment on above: Performed By: #### L 100.0100, L501.9100, L500.4050 #### [facility] [address] [place], [address] Eosinophils/100 WBC (Bld) 0.9 % Normal 0-5 [facility] Comment on above: Performed By: #### L 100.0100, L501.9100, L500.4050 #### [facility] [address] [place], [address] Erythrocyte distribution width (RBC) [Ratio] 14.9 % High 11.6-14.6 [facility] Comment on above: Performed By: #### L 100.0100, L501.9100, L500.4050 #### [facility] [address] [place], [address] Hematocrit (Bld) [Volume fraction] 45.0 % Normal 37-47 [facility] Comment on above: Performed By: #### L 100.0100, L501.9100, L500.4050 #### [facility] [address] [place], [address] Hemoglobin (Bld) [Mass/Vol] 14.9 g/dL Normal 12.0-15.0 [facility] Comment on above: Performed By: #### L 100.0100, L501.9100, L500.4050 #### [facility] [address] [place], [address] IG% 0.400 Normal 0.0-0.9 [facility] Comment on above: Result Comment: IG% - Immature Granulocytes (promyelocytes, myelocytes and metamyelocytes) > 1% indicates that a LEFT SHIFT is Present. Performed By: #### L 100.0100, L501.9100, L500.4050 #### [facility] [address] [place], [address] Lymphocytes/100 WBC (Bld) 21.3 % Normal 19-41 [facility] Comment on above: Performed By: #### L 100.0100, L501.9100, L500.4050 #### [facility] [address] [place], [address] MCH (RBC) [Entitic mass] 30.1 pg Normal 27.0-32.0 [facility] Comment on above: Performed By: #### L 100.0100, L501.9100, L500.4050 #### [facility] [address] [place], [address] MCHC (RBC) [Mass/Vol] 33.1 g/dL Normal 32-36 [facility] Comment on above: Performed By: #### L 100.0100, L501.9100, L500.4050 #### [facility] [address] [place], [address] MCV (RBC) [Entitic vol] 90.9 fL Normal 81-99 [facility] Comment on above: Performed By: #### L 100.0100, L501.9100, L500.4050 #### [facility] [address] [place], [address] Monocytes/100 WBC (Bld) 6.5 % Normal 0-10 [facility] Comment on above: Performed By: #### L 100.0100, L501.9100, L500.4050 #### [facility] [address] [place], [address] Neutrophils/100 WBC (Bld) 70.3 % High 47-70 [facility] Comment on above: Performed By: #### L 100.0100, L501.9100, L500.4050 #### [facility] [address] [place], [address] Nucleated RBC (Bld) [#/Vol] 0 10*3/uL Normal 0-5 [facility] Comment on above: Performed By: #### L 100.0100, L501.9100, L500.4050 #### [facility] [address] [place], [address] Platelet mean volume (Bld) [Entitic vol] 9.4 fL Normal 6.2-12.0 [facility] Comment on above: Performed By: #### L 100.0100, L501.9100, L500.4050 #### [facility] [address] [place], [address] Platelets (Bld) [#/Vol] 233 10*3/uL Normal 150-450 [facility] Comment on above: Performed By: #### L 100.0100, L501.9100, L500.4050 #### [facility] [address] [place], [address] RBC (Bld) [#/Vol] 4.95 10*6/uL Normal 4.2-5.4 [facility] Comment on above: Performed By: #### L 100.0100, L501.9100, L500.4050 #### [facility] [address] [place], [address] RDW SD 49.1 fl High 35.1-43.9 [facility] Comment on above: Performed By: #### L 100.0100, L501.9100, L500.4050 #### [facility] [address] [place], [address] WBC (Bld) [#/Vol] 8.5 10*3/uL Normal 4.4-11.0 [facility] Comment on above: Performed By: #### L 100.0100, L501.9100, L500.4050 #### [facility] [address] [place], [address] Chest 1 View (Portable)on Chest 1 View (Portable) [facility] Services [address] [place] [address] Chest 1 View (Portable) MR#: [id number] Acct: [id number] Name: VERO NGOYCE Rep #: [id number] : 1960 F 62 From: Dago alex MD PCP: Dr. Andry Beatty MD Status: PRE ER Study: Chest 1 View (Portable) Date of Exam: 05/28/23 Exam# [id number] Ordering Dr: Trenton Sarmienot MD EXAM: XR CHEST, 1 VIEW CLINICAL INDICATION: malaise TECHNIQUE: Frontal view of the chest. COMPARISON: Previous chest radiographs of 01/16/2023 and 10/17/2021. FINDINGS: LUNGS AND PLEURAL SPACES: Interval development of discoid atelectasis at the left lung base. Stable linear atelectasis and suture material at the right lung base. No patchy pneumonia or pleural effusion. No pneumothorax. HEART: Borderline cardiomegaly. Normal pulmonary vasculature. MEDIASTINUM: Stable calcification and minimal elongation of the thoracic aorta. BONES/JOINTS: Thoracic degenerative spurring. No acute pulmonary infiltrates. SOFT TISSUES: Mild elevation of the left hemidiaphragm. RAD/Chest 1 View (Portable) IMPRESSION: Interval development of left basilar atelectasis, otherwise stable. No pneumonia or pulmonary edema. Electronically Signed: Dago Goff MD at 3:17 EDT , CC: Dr. Trenton Sarmiento MD; Dr. Andry Beatty MD Receiving Checker: Signed Normal [facility] Comprehensive Metabolic Prof nmon 05-28-2023 Albumin [Mass/Vol] 4.0 g/dL Normal 3.2-5.0 [facility] Comment on above: Performed By: #### L 100.0100, L501.9100, L500.4050 #### [facility] [address] [place], [place], [id number] Albumin/Globulin [Mass ratio] 1.1 {ratio} Normal 0.9-2.4 [facility] Comment on above: Performed By: #### L 100.0100, L501.9100, L500.4050 #### [facility] [address] [place], [address] ALK P 122 U/L High 45-117 [facility] Comment on above: Performed By: #### L 100.0100, L501.9100, L500.4050 #### [facility] [address] [place], [address] ALT [Catalytic activity/Vol] 20 U/L Normal 13-56 [facility] Comment on above: Performed By: #### L 100.0100, L501.9100, L500.4050 #### [facility] [address] [place], [address] AST [Catalytic activity/Vol] 17 U/L Normal 15-37 [facility] Comment on above: Performed By: #### L 100.0100, L501.9100, L500.4050 #### [facility] [address] [place], [address] Bilirubin [Mass/Vol] 0.50 mg/dL Normal 0.20-1.00 [facility] Comment on above: Result Comment: For patients on eltrombopag therapy, use of [facility] [place] TBIL is not recommended. Performed By: #### L 100.0100, L501.9100, L500.4050 #### [facility] [address] [place], [address] BUN/CRE 13.1 RATIO Normal 10-20 [facility] Comment on above: Performed By: #### L 100.0100, L501.9100, L500.4050 #### [facility] [address] [place], [address] CA,Total 9.3 mg/dL Normal 8.5-10.1 [facility] Comment on above: Performed By: #### L 100.0100, L501.9100, L500.4050 #### [facility] [address] [place], [address] Chloride [Moles/Vol] 110 mmol/L High 98-107 [facility] Comment on above: Performed By: #### L 100.0100, L501.9100, L500.4050 #### [facility] [address] [place], [address] CO2 [Moles/Vol] 28.0 mmol/L Normal 21.0-32.0 [facility] Comment on above: Performed By: #### L 100.0100, L501.9100, L500.4050 #### [facility] [address] [place], [address] Creatinine [Mass/Vol] 0.69 mg/dL Normal 0.55-1.02 [facility] Comment on above: Result Comment: The validity of the calculated GFR GFRAA in patients over 70 years has not been determined. Clinical correlation is essential. Performed By: #### L 100.0100, L501.9100, L500.4050 #### [facility] [address] [place], [address] ECRCL 83.26 ml/min Normal [facility] Comment on above: Performed By: #### L 100.0100, L501.9100, L500.4050 #### [facility] [address] [place], [address] EST GFR - AA 112 mL/min Normal >60 [facility] Comment on above: Result Comment: Afri can Vietnamese GFR Calc Performed By: #### L 100.0100, L501.9100, L500.4050 #### [facility] [address] [place], [address] GAP 5 Normal 5-15 [facility] Comment on above: Performed By: #### L 100.0100, L501.9100, L500.4050 #### [facility] [address] [place], [address] GFR/1.73 sq M.predicted among non-blacks MDRD (S/P/Bld) [Vol rate/Area] 92 mL/min/{1.73_m2} Normal >60 [facility] Comment on above: Result Comment: Non- GFR Calc Performed By: #### L 100.0100, L501.9100, L500.4050 #### [facility] [address] [place], [address] Globulin (S) [Mass/Vol] 3.8 g/dL Normal 2.2-4.2 [facility] Comment on above: Performed By: #### L 100.0100, L501.9100, L500.4050 #### [facility] [address] [place], [address] Glucose [Mass/Vol] 124 mg/dL High 74-106 [facility] Comment on above: Result Comment: Fast ing Glucose result from 100 to 125 mg/dL suggests IMPAIRED HOMEOSTASIS per A.D.A. criteria. Performed By: #### L 100.0100, L501.9100, L500.4050 #### [facility] [address] [place], [address] Potassium [Moles/Vol] 3.7 mmol/L Normal 3.5-5.1 [facility] Comment on above: Performed By: #### L 100.0100, L501.9100, L500.4050 #### [facility] [address] [place], [address] Sodium [Moles/Vol] 143 mmol/L Normal 136-145 [facility] Comment on above: Performed By: #### L 100.0100, L501.9100, L500.4050 #### [facility] [address] [place], [address] T PROT 7.8 g/dL Normal 6.4-8.2 [facility] Comment on above: Performed By: #### L 100.0100, L501.9100, L500.4050 #### [facility] [address] [place], [address] Urea nitrogen [Mass/Vol] 9 mg/dL Normal 7-18 [facility] Comment on above: Performed By: #### L 100.0100, L501.9100, L500.4050 #### [facility] [address] [place], [address] Emergency Department Summary on 05-28-2023 Emergency Department Summary [facility] System Medical Records Department [address] [place] [address] Emergency Department Summary 05/28/23 MR#: [id number] Acct: [id number] Name: VERO NGO Rep #: [id number] : 1960 62 From: Trenton Sarmiento MD PCP: Dr. Andry Beatty MD Status:REG ER Location: ED HPI History of Present Illness Chief Complaint: Shortness of Breath Detail of Chief Complaint: Just not feeling well Informant: patient and EMS Onset/Context/Timing Onset: Days Context: Gradual Onset Timing: Intermittent Current Severity: Mild Maximum Severity: Mild Narrative Narrative: 62-year-old female history of of COPD. Patient called the squad. Says she lives alone at home. Initially told the squad that she might be short of breath and change that and said she really just was not feeling well. Says been going on the last several days. She denies any nausea, vomiting, diarrhea. She denies any fever or chills. She denies any chest or abdominal pain. She is not real forthcoming with information. She denies any alcohol or drug use or abuse. Prior similar symptoms: No Recent Illness/Hospitalization : No PFSH PFSH Medical History (Updated 05/28/23 @ 03:[address] Trenton Sarmiento MD) Angina pectoris Anxiety CAD (coronary artery disease) Chronic bronchitis Chronic pain Depression Diverticulitis Dyspnea Emphysema lung Hepatitis C HLD (hyperlipidemia) Hyperhidrosis Interstitial lung disease Multiple thyroid nodules Neuropathic pain Palpitations Rheumatoid arthritis Stage 2 moderate COPD by GOLD classification Tobacco abuse Home Medications amitriptyline 50 mg tablet 100 mg PO QHS 01/26/14 [History Last Taken Unknown] atorvastatin 80 mg tablet (Lipitor) 80 mg PO DAILY 07/16/18 [History Last Taken Unknown] buprenorphine 4 mg-naloxone 1 mg sublingual film (Suboxone) 1 film sublingual .COMPLEX 07/16/18 [History Last Taken Unknown] cholecalciferol (vitamin D3) 1,250 mcg (50,000 unit) capsule 50,000 unit PO QWEEK 07/16/18 [History Last Taken Unknown] gabapentin 800 mg tablet (Neurontin) 800 mg PO .qid 07/16/18 [History Last Taken Unknown] lorazepam 0.5 mg tablet (Ativan) 0.5 mg PO TID 07/16/18 [History Last Taken Unknown] lurasidone 60 mg tablet (Latuda) 60 mg PO DAILY 09/13/20 [History Last Taken Unknown] baclofen 10 mg tablet 10 mg PO QHS PRN muscle spasm 08/24/22 [History Last Taken Unknown] ipratropium 0.5 mg-albuterol 3 mg (2.5 mg base)/3 mL nebulization soln 3 ml inhalation Q4H PRN PRN SOB /OR WHEEZING #180 mL 08/24/22 [Rx Last Taken Unknown] Nebulizer Compressor #1 ea 01/09/23 [Rx Last Taken Unknown] PEP device #1 ea 05/01/23 [Rx Last Taken Unknown] PEP device #1 ea 05/01/23 [Rx Last Taken Unknown] budesonide 160 mcg-glycopyr 9 mcg-formot 4.8 mcg/actuation HFA inhaler (Breztri Aerosphere) 2 inh inhalation BID #10.7 grams 05/01/23 [Rx Last Taken Unknown] Allergy/AdvReac Type Severity Reaction Status Date / Time No Known Allergies Allergy Verified 05/28/23 02:19 Family History Mother CAD (coronary artery disease) stents Hypertension Heart disease Sister CAD (coronary artery disease) Diabetes Father Diabetes Heart disease Hypertension Surgical History H/O foot surgery H/O total hysterectomy History of bilateral carpal tunnel release History of lung surgery History of tonsillectomy Social History Smoking Status: Current every day smoker tobacco type: cigarettes Tobacco: How many years used: 54 alcohol intake: never substance use type: does not use ROS ROS ED ROS Narrative Not feeling well. No other specific complaint. Review of Systems ROS Unobtainable: Denies due to encephalopathy Constitutional Constitutional ED: Denies chills or fever(s) Eyes Eyes: Denies blurry vision ENT ENT ED: Denies ear pain Cardiovascular Cardiovascular: Denies chest pain or palpitations Respiratory/Chest Respiratory/Chest: Denies cough or dyspnea Gastrointestinal Gastrointestinal: Denies abdominal pain, constipation, diarrhea, melena, nausea or vomiting Genitourinary Genitourinary ED: Denies dysuria or hematuria Musculoskeletal Musculoskeletal: Denies arthralgias Integumentary Denies abscess Neurologic Neurologic: Denies headache(s) Psychiatric Psychiatric: Denies anxiety Endocrine Endocrinology: Denies cold intolerance Hematologic/Lymphatic Hematologic/Lymphatic: Reports none Allergic/Immunologic Allergic/Immunologic ED: Denies mouth swelling or tongue swelling EXAM Physical Exam Narrative Exam Narrative: 62-year-old female no acute distress. Her initial blood pressure was 98/32 I repeated it was 127/62. She does not look septic or toxic. She is in no distress. No fa (more content not included)... Normal [facility] Urinalysis, Completeon 05-28 AMORPHOUS 1+ Normal [facility] Comment on above: Order Comment: CLEAN CATCH Performed By: #### L 400.0001 ####[facility] [address] [place], [place], [id number] BACTERIA 3+ /hpf Normal None Seen [facility] Comment on above: Order Comment: CLEAN CATCH Performed By: #### L 400.0001 ####[facility] [address] [place], [address] EPI,SQUAMOUS 10-25 SEEN Normal 5-10 [facility] Comment on above: Order Comment: CLEAN CATCH Performed By: #### L 400.0001 ####[facility] [address] [place], [address] RBC 0-5 SEEN Normal 0-5 [facility] Comment on above: Order Comment: CLEAN CATCH Performed By: #### L 400.0001 ####[facility] [address] [place], [address] WBC 0-5 SEEN Normal 0-5 [facility] Comment on above: Order Comment: CLEAN CATCH Performed By: #### L 400.0001 ####[facility] [address] [place], [address] Mucus Ql (Urine sed) 0 SEEN Normal [facility] Comment on above: Order Comment: CLEAN CATCH Performed By: #### L 400.0001 ####[facility] [address] [place], [address] Pulmonary Visit Reporton Pulmonary Visit Report [facility] [place] [address] [place] [address] OFFICE VISIT Date of Service: 05/01/23 MR#: [id number] Acct: [id number] Name: VERO NGO Rep #: [id number] : 1960 Provider: SUAD Michelle Age/Sex: 62/F [place] [facility] [place] Status: Signed Assessment and Plan Assessment and Plan (1) COPD (chronic obstructive pulmonary disease): Status: Chronic Qualifiers: COPD type: unspecified COPD Qualified Code(s): J44.9 - Chronic obstructive pulmonary disease, unspecified Plan: Hospital discharge. Stepping up therapy from [facility] to [facility]. Sending the patient for training on Acapella device for pulmonary toileting. Adding Mucinex 1200 mg twice daily. Follow-up with Dr. Lundy in 3 months. Contact the office with any new or worsening symptoms in the meantime. (2) Nicotine abuse: Status: Chronic Comment: 35 pk/yrs Plan: Encourage complete smoking cessation. Discussed techniques such as evaluating for triggers, utilizing a sucker or wooden cinnamon stick when feeling the need for a cigarette. Also discussed the usefulness of nicotine replacement. (3) Anxiety: Status: Chronic Plan: Complicates exam, plan, care and prognosis. Medications: New guaifenesin ER 1,200 mg PO Q12H 60 tabs 6RF [PEP device] with training 1 ea 0RF J47.9 - Bronchiectasis, uncomplicated hlsdurcajz-dfdezypq-qby moterol 160-9-4.8 mcg/actuation (Breztri Aerosphere) 2 inhalations inhalation BID 10.7 grams 6RF [PEP device] with training 1 ea 0RF J44.9 - Chronic obstructive pulmonary disease, unspecified, J47.9 - Bronchiectasis, uncomplicated Discontinued glycopyrrolate-formoter ol 9-4.8 mcg (Bevespi Aerosphere) Discontinued Reason: Order Changed 2 puffs inhalation QAM AND QPM 1 inh 6RF HPI Hospital FU Chief Complaint: Cough HPI Comments Details: This patient presents to the office today for hospital follow-up after recent hospitalization at [facility] from April 22 through April 24, 2023 for hypoxia secondary to COPD exacerbation. She is ambulatory and currently on supplemental oxygen. If you recall, this patient was last seen in the office on August 24, 2022 for COPD and was in exacerbation at the time. She was requested to return to the office in 3 months for an office visit with Dr. Lundy. For unknown reasons this did not occur. The patient was recently treated for COPD exacerbation. It was discovered that she was not utilizing supplemental oxygen as directed. Physicians clarified that the patient should be utilizing 4 L/min of supplemental oxygen at all times. She was treated with a course of cefdinir and a steroid taper. She reports that she has a last dose of antibiotics and prednisone today. She continues to have a cough that is productive of a thick sputum that she is having difficulty expectorating. She has shortness of breath that is worse with exertion. She has occasional wheezing and chest tightness but denies any chest pain or palpitations. She has not had any fever, chills or body aches. She still smokes cigarettes. She is currently smoking about a pack per day. She states that she is now ready to quit smoking. She reports that she has been on antibiotics for COPD exacerbation 4 times in the past 12 months. She has had a productive cough for the past 6 months. She is compliant with use of supplemental oxygen. She has been utilizing 4 L/min at all times. She has been compliant with the use of Bevespi 2 puffs twice daily. She is currently using albuterol 3-4 times per day. Intake Vital Signs 08/24/22 12:48 05/01/23 07:46 Height 5 ft 7 in 5 ft 7 in Weight: 180 lb BMI 28.1 BP 118/82 H Blood Pressure Location Lt brachial Position Sitting Respiration 22 H Pulse 105 H Pulse Source Monitor Temp 97.6 F L Temperature Source Temporal Artery Pulse Oximetry (%) 90 Oxygen Delivery Method nasal canula Oxygen Flow Rate (L/min) 4 Intake Visit Reasons: Hospital FU Chief Complaint: thyroid biopsy DME Vendor: [employer]- [employer] Accompanied by: Self Is patient in pain?: No Allergies No Known Allergies Allergy (Verified 05/01/23 11:08) Medications amitriptyline 50 mg tablet 100 mg PO QHS 01/26/14 [History Confirmed 05/01/23] atorvastatin 80 mg tablet (Lipitor) 80 mg PO DAILY 07/16/18 [History Confirmed 05/01/23] buprenorphine 4 mg-naloxone 1 mg sublingual film (Suboxone) 1 film sublingual .COMPLEX 07/16/18 [History Confirmed 05/01/23] cholecalciferol (vitamin D3) 1,250 mcg (50,000 unit) capsule 50,000 unit PO QWEEK 07/16/18 [History Confirmed 05/01/23] gabapentin 800 mg tablet (Neurontin) 800 mg PO .qid 07/16/18 [History Confirmed 05/01/23] lorazepam 0.5 mg tablet (Ativan) 0.5 mg PO TID 07/16/18 [History Confirmed 05/01/23] lurasidone 60 mg t (more content not included)... Normal [facility] LABORATORYOrdered By: Mick Cárdenas on 03-14-2023 Basophil, Absolute 0.0 103/mcL Invalid Interpretation Code 0.0 - 0.2 10^3/mcL AO Workflow SS Basophils/100 WBC (Bld) 0.3 % Invalid Interpretation Code 0.0 - 2.5 % AO Workflow SS Eosinophil, Absolute 0.1 103/mcL Invalid Interpretation Code 0.0 - 0.4 10^3/mcL AO Workflow SS Eosinophils/100 WBC (Bld) 0.5 % Invalid Interpretation Code 0.0 - 7.0 % AO Workflow SS Erythrocyte distribution width (RBC) [Ratio] 13.2 % Invalid Interpretation Code 11.5 - 14.5 % AO Workflow SS Hematocrit (Bld) [Volume fraction] 38.9 % Invalid Interpretation Code 37.0 - 47.0 % AO Workflow SS Hemoglobin (Bld) [Mass/Vol] 13.3 G/dL Invalid Interpretation Code 12.0 - 16.0 G/dL AO Workflow SS Lymphocyte, Absolute 1.7 103/mcL Invalid Interpretation Code 0.8 - 3.9 10^3/mcL AO Workflow SS Lymphocytes/100 WBC (Bld) 12.4 % Invalid Interpretation Code 10.0 - 50.0 % AO Workflow SS MCH (RBC) [Entitic mass] 31.0 pg Invalid Interpretation Code 27.0 - 31.2 pg AO Workflow SS MCHC 34.2 G/dL Invalid Interpretation Code 33.0 - 37.0 G/dL AO Workflow SS MCV (RBC) [Entitic vol] 90.5 fL Invalid Interpretation Code 80.0 - 94.0 fL AO Workflow SS Monocyte distribution width Auto (Bld) [Entitic vol] 21.26 Invalid Interpretation Code 0.00 - 20.00 AO Workflow SS Comment on above: Result Comment: For adults in ED, MDW>20.0 may be associated with a higher risk of sepsis during the first 12hrs of hospital admission Monocyte, Absolute 0.9 103/mcL Invalid Interpretation Code 0.2 - 1.0 10^3/mcL AO Workflow SS Monocytes/100 WBC (Bld) 6.4 % Invalid Interpretation Code 1.7 - 13.0 % AO Workflow SS Neutrophil, Absolute 11.0 103/mcL Invalid Interpretation Code 2.9 - 6.2 10^3/mcL AO Workflow SS Neutrophils/100 WBC (Bld) 80.4 % Invalid Interpretation Code 37.0 - 80.0 % AO Workflow SS Platelet mean volume (Bld) [Entitic vol] 7.3 fL Invalid Interpretation Code 7.4 - 10.4 fL AO Workflow SS Platelets (Bld) [#/Vol] 324 103/mcL Invalid Interpretation Code 130 - 400 10^3/mcL AO Workflow SS RBC (Bld) [#/Vol] 4.30 106/mcL Invalid Interpretation Code 4.20 - 5.40 10^6/mcL AO Workflow SS WBC (Bld) [#/Vol] 13.7 103/mcL Invalid Interpretation Code 4.6 - 10.8 10^3/mcL AO Workflow SS LABORATORYOrdered By: SYSTEM SYSTEM on 03-14-2023 Calcium [Mass/Vol] 8.5 mg/dL Invalid Interpretation Code 8.4 - 10.2 mg/dL AO ADM SS Chloride [Moles/Vol] 99 mmol/L Invalid Interpretation Code 98 - 107 mmol/L AO ADM SS CO2 [Moles/Vol] 28 mmol/L Invalid Interpretation Code 23 - 31 mmol/L AO ADM SS Creatinine [Mass/Vol] 0.61 mg/dL Invalid Interpretation Code 0.55 - 1.02 mg/dL AO ADM SS Electrolyte Balance 13.0 mEq/L Invalid Interpretation Code 4.0 - 15.0 mEq/L AO ADM SS GFR/1.73 sq M.predicted among blacks MDRD (S/P/Bld) [Vol rate/Area] 121 ml/min/1.73sqm Invalid Interpretation Code AO Chemistry S GFR/1.73 sq M.predicted among non-blacks MDRD (S/P/Bld) [Vol rate/Area] 100 ml/min/1.73sqm Invalid Interpretation Code AO Chemistry S Glucose [Mass/Vol] 130 mg/dL Invalid Interpretation Code 80 - 115 mg/dL AO ADM SS Potassium [Moles/Vol] 3.7 mmol/L Invalid Interpretation Code 3.5 - 5.1 mmol/L AO ADM SS Sodium [Moles/Vol] 140 mmol/L Invalid Interpretation Code 136 - 145 mmol/L AO ADM SS Troponin I.cardiac DL <= 0.01 ng/mL [Mass/Vol] 4.0 ng/L Invalid Interpretation Code 0.0 - 51.4 ng/L AO ADM SS Urea nitrogen [Mass/Vol] 7 mg/dL Invalid Interpretation Code 7 - 18 mg/dL AO ADM SS Urea nitrogen/Creatinine [Mass ratio] 11 ratio Invalid Interpretation Code 7 - 27 ratio AO ADM SS LABORATORYOrdered By: Marilyn Cota on 03-14-2023 FLUAV RNA IAN+probe Ql (Upper resp) Negative (03/14/23 6:11 PM) Invalid Interpretation Code Negative AO Auto Urine SS FLUBV RNA IAN+probe Ql (Upper resp) Negative (03/14/23 6:11 PM) Invalid Interpretation Code Negative AO Auto Urine SS RSV RNA IAN+probe Ql (Upper resp) Negative (03/14/23 6:11 PM) Invalid Interpretation Code Negative AO Auto Urine SS SARS-CoV-2 (COVID-19) RNA IAN+probe Ql (Resp) Negative results do not preclude SARS-CoV-2 infection and should not be used as the sole basis for patient management decisions. Negative results must be combined with clinical observations, patient history, and epidemiological information.There is a risk of false negative values resulting from improperly collected, transported, or handled specimens.There is a risk of false negative values due to the presence of sequence variants in the pathogen targets of the assay, procedural errors, amplification inhibitors in specimens, or inadequate numbers of organisms for amplification.MAN SARS-CoV-2 Assay is a Real-Time reverse-transcriptase polymerase chain reaction (RT-PCR) based qualitative in vitro diagnostic test intended for the qualitative detection of nucleic acid from the SARS-CoV-2 in nasopharyngeal swab specimens collected from individuals suspected of COVID-19 by their healthcare provider. Testing is limited to laboratories certified under the Clinical Laboratory Improvement Amendments of 1988 (CLIA), 42 U.S.C. 263a, to perform moderate and high complexity tests. Invalid Interpretation Code AO Auto Urine SS COVID-19 virus antigen assay Ordered By: Dr. Beatty on 01-16-2023 SARS-CoV-2 (COVID-19) Ag IA.rapid Ql (Resp) Not detected Not Detect [facility] Comment on above: Normal Reference Ran ge: Not DetectedMethod:(RT-PCR) real-time reverse transcriptase PCRLuminex MAN Instrument*The Food and Drug Administration (FDA) has issued an Emergency Use Authorization (EAU) for the MAN SARS-CoV-2 Assay for the rapid detection of the virus that causes COVID-19. This test has been validated, but the FDAs independent review of this validation is pending.*Negative results do not preclude infection and should not be used as the sole basis for treatment or patient management. Optimum specimen types and timing for peak viral levels during infections caused by SARS-CoV-2 have not been determined. Collection of multiple specimens from the same patient may be necessary to detect the virus. The possibility of a false negative result should be considered if the patient has clinical presentation or has had recent exposure. No Panel InformationOrdered By: Andry Beatty on 01-16-2023 Influenza Types A,B Direct FA ([facility]) [facility] No Panel InformationOrdered By: Dr. Beatty on 01-16-2023 Influenza Types A,B Direct FA ([facility]) [facility] RSV Ag EIAOrdered By: Andry parr on 01-16-2023 RSV Ag Immune stain Ql (Tiss) [facility] RSV Ag EIAOrdered By: Dr. Cher parr on 01-16-2023 RSV Ag Immune stain Ql (Tiss) [facility] Laboratory - Drug toxicology Ordered By: Dr. Gross on 12-17-2022 Amphetamines Ql (U) Negative <1000 ng/mL [facility] Benzodiazepines Ql (U) Negative < 200 ng/mL [facility] Cannabinoids Screen Ql (U) Negative < 50 ng/mL [facility] Cocaine Ql (U) Negative < 300 ng/mL [facility] Opiates Ql (U) Negative < 300 ng/mL [facility] No Panel InformationOrdered By: Dr. Gross on 12-17-2022 MDMA (Ecstasy) Screen Negative < 500 ng/mL [facility] Urine Barbiturates Screen Negative < 200 ng/mL [facility] Urine Drug Screen Comment [facility] Comment on above: CONFIRMATORY TESTING FOR ALL POSITIVE URINE DRUG SCREENRESULTS WILL ONLY BE SENT OUT UPON PHYSICIAN ORDER. VISTA Urine Drug Screen methods provide only preliminaryanalytical test results. A more specific alternate chemicalmethod must be used in order to obtain a confirmedanalytical result. Gas chromatography/mass spectrometery(GC/MS) is the preferred confirmatory method. Clinicalconsideration and professional judgement should be appliedto any drug of abuse test result, particularly whenpreliminary positive results are used. URINE TCA TESTING MUST BE ORDERED SEPARATELY. USE TESTMNEMONIC: [facility] Urine Methadone Screen Negative < 300 ng/mL [facility] Urine phencyclidine (PCP) de tectionOrdered By: Dr. Gross on 12-17-2022 Phencyclidine Ql (U) Negative < 25 ng/mL [facility] Laboratory - Drug toxicology on 08-09-2022 Amphetamines Ql (U) Negative <1000 ng/mL [facility] Work Phone: Benzodiazepines Ql (U) Negative < 200 ng/mL [facility] Work Phone: Cannabinoids Screen Ql (U) Negative < 50 ng/mL [facility] Work Phone: Cocaine Ql (U) Negative < 300 ng/mL [facility] Work Phone: Opiates Ql (U) Negative < 300 ng/mL [facility] Work Phone: No Panel Informationon 08-09 MDMA (Ecstasy) Screen Negative < 500 ng/mL [facility] Work Phone: Urine Barbiturates Screen Negative < 200 ng/mL [facility] Work Phone: [phone] Urine Drug Screen Comment [facility] Work Phone: Comment on above: CONFIRMATORY TESTING FOR ALL POSITIVE URINE DRUG SCREENRESULTS WILL ONLY BE SENT OUT UPON PHYSICIAN ORDER. VISTA Urine Drug Screen methods provide only preliminaryanalytical test results. A more specific alternate chemicalmethod must be used in order to obtain a confirmedanalytical result. Gas chromatography/mass spectrometery(GC/MS) is the preferred confirmatory method. Clinicalconsideration and professional judgement should be appliedto any drug of abuse test result, particularly whenpreliminary positive results are used. URINE TCA TESTING MUST BE ORDERED SEPARATELY. USE TESTMNEMONIC: [facility] Urine Methadone Screen Negative < 300 ng/mL [facility] Work Phone: Urine phencyclidine (PCP) de tectionon 08-09-2022 Phencyclidine Ql (U) Negative < 25 ng/mL [facility] Work Phone: No Panel Informationon 06-18 Miscellaneous Test See comment [facility] Work Phone: Comment on above: [id number] 6+OXYCODONE-B UND (ng/mL) DRUG RESULT SCREEN CUTOFF____ Amphetamines,Urine Negative ng/mL 1000 Amphetamine test includes Amphetamine and Methamphetamine.Barbiturates Negative ng/mL 200Benzodiazepines Negative ng/mL 200Cannabinoid Negative ng/mL 20Cocaine (Metab) Negative ng/mL 300Opiates Negative ng/mL 300 Opiates test includes Codeine, Morphine, Hydromorphone, Hydrocodone. Oxycodone/Oxymorphone,Urine Negative ng/mL 300 Test includes Oxydodone and Oxymorphone. TESTING PERFORMED AT [facility]. ORIGINAL REPORT ON FILE IN LAB CONTAINS ADDITIONAL TEST SITE INFORMATION. No Panel Informationon 06-04 Miscellaneous Test See comment [facility] Work Phone: Comment on above: [phone] 6+OXYCODONE-B UND (ng/mL) DRUG RESULT SCREEN CUTOFF____ Amphetamines,Urine Positive ng/mL 1000 Amphetamine test includes Amphetamine and Methamphetamine. Amphetamine Positive Amphetamine Conf, MS, UR >3000 ng/mL 500 Methamphetamine NegativeBarbiturates Negative ng/mL 200Benzodiazepines Negative ng/mL 200Cannabinoid Negative ng/mL 20Cocaine (Metab) Negative ng/mL 300Opiates Negative ng/mL 300 Opiates test includes Codeine, Morphine, Hydromorphone, Hydrocodone. Oxycodone/Oxymorphone,Urine Negative ng/mL 300 Test includes Oxydodone and Oxymorphone. TESTING PERFORMED AT [facility]. ORIGINAL REPORT ON FILE IN LAB CONTAINS ADDITIONAL TEST SITE INFORMATION. EMERGENCY REPORTon 8 EMERGENCY REPORT [facility] EMERGENCY ROOM REPORT NAME ACCOUNT SEX AGE ADMIT DISCHARGE PT MED. RECORD# NUMBER DATE DATE TYPE JENI [id number] F 57 05/12/18 05/12/18 3 VERO Hunt [id number] ROOM: ER DATE OF : 1960 DICTATING PHYSICIAN: Jeremy Caicedo CHIEF COMPLAINT/HISTORY OF PRESENT ILLNESS: The [...] She is afebrile, blood pressure 118/103, pulse 117, respirations 20, pulse ox 94% on room [...] she has pulmonary embolism. I did review OARRS, which is extensive. She takes Suboxone. DIAGNOSIS: Acute right shoulder strain. PLAN/DISPOSITION: I was going to write her for Ultram, but she says that she cannot take that, but she can take Percocet. I will give her two Percocet and she will be Page 1 of 2 [facility] Emergency Room Report discharged in stable condition. She has a sling and was told to use the sling and do range of motion exercises, 10 reps every hour. They are demonstrated. Dictated By: Jeremy Caicedo DO 05/13/18 01:05 JOB #: [id number] Transcribed By: maria dolores 05/13/18 06:38 Electronically signed by: INOCENCIA Caicedo D.O. 05/23/18 21:53 Page 2 of 2 [facility] Emergency Room Report Normal [facility] EMERGENCY DEPARTMENT SUMMARY on 11-09-2017 EMERGENCY DEPARTMENT SUMMARY [facility] EMERGENCY DEPARTMENT SUMMARY NAME NUMBER SEX AGE ADMIT DISC TYPE MED.RECORD# JENI Hunt [id number] F 56 11/05/17 11/06/17 E.RUma [id number] ROOM:- DATE OF :1960 PHYSICIAN NO.:[id number] PHYSICIAN NAME:INOCENCIA Caicedo D.O. PHYSICIAN:ROGERIO JACOBSON MD HISTORY OF PRESENT ILLNESS: The [...] oriented. Her thought process was linear and goal-directed. She was anxious. She did take two [...] PHYSICAL EXAMINATION: She is afebrile. Blood pressure 149/95, pulse 117, respirations 20, and pulse oximetry [...] will be discharged in stable condition. D: Jeremy Caicedo DO TD: 00:39 JOB #: [id number] Transcribed by: shannon 11/06/2017 15:56 DD: DT: JOB #: ELECTRONICALLY SIGNED BY: INOCENCIA Caicedo D.O. 11/09/17 03:15 Transcribed by: MARIA DOLORES 11/06/17 16:57 Normal [facility] DISCHARGE SUMMARYon 08-17-20 17 DISCHARGE SUMMARY [facility] DISCHARGE SUMMARY NAME NUMBER SEX AGE ADMIT DISC TYPE MED.RECORD# [facility] [id number] F 56 06/14/2017 06/16/2017 I/P [id number] ROOM:310MO DATE OF :1960 PHYSICIAN NO.:[id number] PHYSICIAN NAME: PHYSICIAN:BRIANNE JORGE CNP SERVICE: Hospitalist, [...] chest pain, palpitations. No nausea, vomiting, abdominal pain, or diarrhea. She denied recent hospitalization, exposure [...] rhythm. Normal S1 and S2. No gallops, murmurs, or rubs are appreciated. Respiratory: Symmetric with [...] O2 saturation at her baseline home O2 requirements, which was 4 L. However, she continued to have elevated lactate at 29.3. Given this and the severity of her presentation in the ER, the patient was kept 1 further night for further monitoring, IV hydration, and repeat lactate. DISCHARGE SUMMARY [facility] [address] [place] [address] DISCHARGE SUMMARY NAME NUMBER SEX AGE ADMIT DISC TYPE MED.RECORD# [facility] [id number] F 56 06/14/2017 06/16/2017 I/P [id number] ROOM:310MO DATE OF :1960 PHYSICIAN NO.:[id number] PHYSICIAN NAME: PHYSICIAN:BRIANNE JORGE CNP Upon the [...] sublingual tablets, 1 tablet sublingual daily. DISCHARGE INSTRUCTIONS/PLAN: The patient is to follow up with [...] with my collaborating physician, Dr. Burnett. D: BRIANNE JORGE CNP TD: 06/17/2017 21:24:08 JOB #: [id number] Brianne Ania MCGARRY 06/19/17 23:52 Transcribed by: RADHA 06/17/2017 21:24:08 DISCHARGE SUMMARY [facility] 2 [facility] DISCHARGE SUMMARY NAME NUMBER SEX AGE ADMIT DISC TYPE MED.RECORD# [facility] [id number] F 56 06/14/2017 06/16/2017 I/P [id number] ROOM:310MO DATE OF :1960 PHYSICIAN NO.:[id number] PHYSICIAN NAME: PHYSICIAN:BRIANNE JORGE CNP Copy for: NO DOCTOR ON ADMISSION SHEET DISCHARGE SUMMARY [facility] [address] [facility] DISCHARGE SUMMARYon 06-17-20 17 DISCHARGE SUMMARY [facility] DISCHARGE SUMMARY NAME NUMBER SEX AGE ADMIT DISC TYPE MED.RECORD# [facility] [id number] F 56 06/16/2017 06/16/2017 I/P [id number] ROOM:310MO DATE OF :1960 PHYSICIAN NO.:[id number] PHYSICIAN NAME: PHYSICIAN:KIA BURNETT M.D. This is a shared split visit with Brianne Jorge. I have examined the patient and interviewed her independently with Brianne Jorge present. ADMITTING DIAGNOSIS: FINAL DIAGNOSIS: SUBJECTIVE: Mrs. Ngo feels well today. She would like to return home. OBJECTIVE: The patient's lungs are clear. IMPRESSION/PLAN: The patient has a normal lactate level now. She may be discharged safely. I was concerned about discharging her yesterday due to the very high lactate level the day prior. D: KIA BURNETT M.D. TD: 06/17/2017 08:08:37 JOB #: [id number] Garry Burnett M.D. Internal Medicine 06/17/17 12:38 Transcribed by: RADHA 06/17/2017 08:08:37 Copy for: NO DOCTOR ON ADMISSION SHEET DISCHARGE SUMMARY [facility] [address] [facility] BMP with eGFRon 08-13-2017 Age 56 years Normal [facility] Comment on above: Performed By: #### 2 [id number] ####[facility],[address] [place] [address] 40534 Anion gap 10 mmol/L Normal 10 - 20 [facility] Comment on above: Performed By: #### 2 82306 ####[facility],[address] [place] [address] 77725 Calcium 8.4 mg/dL Low 8.6 - 10.2 [facility] Comment on above: Performed By: #### 2 01380 ####[facility],[address] [place] [address] 52018 Chloride 113 mmol/L High 98 - 107 [facility] Comment on above: Performed By: #### 2 72808 ####[facility],[address] [place] [address] 90338 CO2 25.5 mmol/L Normal 21.0 - 31.0 [facility] Comment on above: Performed By: #### 2 82788 ####[facility],[address] [place] [address] 13556 Creatinine 0.6 mg/dL Normal 0.6 - 1.2 [facility] Comment on above: Performed By: #### 2 89745 ####[facility],[address] [place] [address] 92502 eGFR (non-black) Normal [facility] Comment on above: Result Comment: BASI C METABOLIC PANEL Performed By: #### 2 18530 ####[facility],[address] [place] [address] 14748 eGFR (non-black) mL/min/{1.73_m2} Normal 60 - 999 [facility] Comment on above: Performed By: #### 2 64461 ####[facility],[address] [place] [address] 16251 Result Comment: ACCO RDING TO THE NATIONAL KIDNEY DISEASE EDUCATION PROGRAM(NKDE), A NORMAL eGFRIS A VALUE GREATER THAN OR EQUAL TO 60 ML/MIN/1.73 SQ METERS.CHRONIC KIDNEY DISEASE: <60mL/MIN/1.73 SQ METERSKIDNEY FAILURE: <15mL/MIN/1.73 SQ METERSTHIS TEST SHOULD ONLY BE USED FOR PATIENTS 18 YEARS OF AGE AND OLDER. Glucose mass conc 134 mg/dL High 74 - 106 [facility] Comment on above: Performed By: #### 2 03104 ####[place] [address] Potassium molar conc 4.1 mmol/L Normal 3.5 - 5.1 [facility] Comment on above: Performed By: #### 2 98241 ####[place] [address] Sodium 144 mmol/L Normal 136 - 145 [facility] Comment on above: Performed By: #### 2 11236 ####[place] [address] Urea nitrogen 9 mg/dL Normal 6 - 20 [facility] Comment on above: Performed By: #### 2 88377 ####[place] [address] CBCon 06-16-2017 Basophils Auto #/vol (Bld) 0.10 x10EE3/UL Normal 0.00 - 0.10 [facility] Comment on above: Result Comment: {CD] Performed By: #### 2 72506 ####[place] [id number] Basophils/100 WBC Auto (Bld) 0.6 % Normal 0.0 - 2.0 [facility] Comment on above: Performed By: #### 2 92133 ####[place] [address] CBC Normal [facility] Comment on above: Result Comment: CBC- COMPLETE BLOOD COUNT Performed By: #### 2 87549 ####[place] [address] Eosinophils 0.10 x10EE3/UL Normal 0.00 - 0.50 [facility] Comment on above: Performed By: #### 2 23425 ####[facility],[address] [place], [place] [id number] Eosinophils/100 leukocytes 0.7 % Normal 0.0 - 7.0 [facility] Comment on above: Performed By: #### 2 92337 ####[facility],[address] [place] [address] Erythrocyte distribution width Auto Ratio (RBC) 13.4 % Normal 12.0 - 15.6 [facility] Comment on above: Performed By: #### 2 76027 ####[facility],[address] [place] [address] Erythrocytes (RBC) 4.03 x 10EE6/UL Low 4.10 - 5.30 [facility] Comment on above: Performed By: #### 2 32577 ####[facility],[address] [place] [address] Hematocrit (HCT) 37.0 % Normal 34.0 - 46.0 [facility] Comment on above: Performed By: #### 2 39372 ####[facility],[address] [place] [address] Hemoglobin mass conc (Bld) 12.8 g/dL Normal 12.0 - 16.0 [facility] Comment on above: Performed By: #### 2 07098 ####[facility],[address] [place], [place] [id number] Lymphocytes 4.20 x10EE3/UL High 0.80 - 2.80 [facility] Comment on above: Performed By: #### 2 18847 ####[facility],[address] [place], [place] [id number] Lymphocytes/100 leukocytes 41.7 % Normal 20.0 - 45.0 [facility] Comment on above: Performed By: #### 2 30648 ####[facility],[address] [place] [address] MCH 32 pg Normal 27 - 33 [facility] Comment on above: Performed By: #### 2 61805 ####[facility],[address] [place] [address] MCHC mass conc (RBC) 35 X10 3 Normal 32 - 36 [facility] Comment on above: Performed By: #### 2 25807 ####[facility],[address] [place] [address] MCV 92 fL Normal 80 - 99 [facility] Comment on above: Performed By: #### 2 18022 ####[facility],[address] [place] [address] Monocytes 0.60 x10EE3/UL Normal 0.20 - 1.00 [facility] Comment on above: Performed By: #### 2 76503 ####[facility],[address] [place] [address] MONOS % 5.7 % Normal 0.0 - 10.0 [facility] Comment on above: Performed By: #### 2 54143 ####[facility],[address] [place] [address] Neutrophils 5.20 x10EE3/UL Normal 1.50 - 7.10 [facility] Comment on above: Performed By: #### 2 63015 ####[facility],[address] [place] [address] Neutrophils/100 WBC Auto (Bld) 51.3 % Normal 46.0 - 76.0 [facility] Comment on above: Performed By: #### 2 92879 ####[place] [address] Platelet mean volume (PMV) 9.7 fL Normal 6.6 - 10.5 [facility] Comment on above: Result Comment: AUTO MATED DIFFERENTIAL Performed By: #### 2 77564 ####[facility],[address] [place] [address] Platelets 151 x10EE3/UL Normal 150 - 450 [facility] Comment on above: Performed By: #### 2 17731 ####[facility],[address] [place] [address] 44619 WBC (Leukocytes) 10.2 x 10EE3/UL Normal 4.5 - 10.8 [facility] Comment on above: Performed By: #### 2 75064 ####[facility],[address] [place] [address] 54830 EMERGENCY REPORTon 7 EMERGENCY REPORT [facility] EMERGENCY ROOM REPORT NAME NUMBER SEX AGE ADMIT DISC TYPE MED.RECORD# [facility] [id number] F 56 06/14/2017 I/P [id number] ROOM:310MO DATE OF :1960 PHYSICIAN NO.:[id number] PHYSICIAN NAME: PHYSICIAN:DENISE NEVILLE CHIEF COMPLAINT: Increasing shortness of breath and weakness. HISTORY OF PRESENT ILLNESS: The patient has a history of long-standing COPD. She is on O2 at home [...] Laboratories showed an elevated white count of 12,600, unremarkable differential, normal H&H. She does have [...] obstructive pulmonary disease exacerbation. EMERGENCY ROOM REPORT JENI VERO Hunt [address] [place] [address] EMERGENCY ROOM REPORT NAME NUMBER SEX AGE ADMIT DISC TYPE MED.RECORD# VERO NGO [id number] F [id number] 06/14/2017 I/P [id number] ROOM:310MO DATE OF :1960 PHYSICIAN NO.:[id number] PHYSICIAN NAME: PHYSICIAN:DENISE NEVILLE 2. Pneumonia, rule out sepsis. D: DENISE NEVILLE TD: 06/14/2017 19:44:11 JOB #: [id number] INOCENCIA Neville M.D. Emergency Department 06/16/17 08:18 Transcribed by: RADHA 06/14/2017 19:44:11 Copy for: KELIN Cowart Copy for: NO DOCTOR ON ADMISSION SHEET EMERGENCY ROOM REPORT VERO NGO 2 Normal [facility] HGB A1Con 06-16-2017 Hemoglobin A1c/Hemoglobin.total mass fraction (Bld) 6.0 % Normal 4.4 - 6.4 [facility] Comment on above: Result Comment: {HB] {A1] Performed By: #### 2 39711 ####[facility],[address] [place] [address] HISTORY AND PHYSICALon 06-16 HISTORY AND PHYSICAL [facility] HISTORY & PHYSICAL NAME NUMBER SEX AGE ADMIT DISC TYPE MED.RECORD# VERO NGO [id number] F [id number] 06/14/2017 I/P [id number] ROOM:310VT DATE OF :1960 PHYSICIAN NO.:[id number] PHYSICIAN NAME: PHYSICIAN:KIA BURNETT M.D. ADDENDUM: This [...] BURNETT M.D. TD: 06/16/2017 08:46:38 JOB #: [id number] E.Sign Dr. Kia Burnett M.D. Internal Medicine 06/16/17 16:55 Transcribed by: NMT 06/16/2017 08:46:38 Copy for: NO DOCTOR ON ADMISSION SHEET Update to H&P: [] No Changes: I have examined the patient and reviewed the H&P and there are no changes. [] As previously dictated with the following changes: HISTORY & PHYSICAL VERO NGO [address] [place] [address] HISTORY & PHYSICAL NAME NUMBER SEX AGE ADMIT DISC TYPE MED.RECORD# JENI VERO Hunt [id number] F [id number] 06/14/2017 I/P [id number] ROOM:[facility] [place] DATE OF :1960 PHYSICIAN NO.:[id number] PHYSICIAN NAME: PHYSICIAN:KIA BURNETT M.D. PHYSICIAN SIGNATURE: TIME:____ DATE: HISTORY & PHYSICAL JENI, VERO Hunt 2 Normal [facility] LACTATEon 06-16-2017 Lactate 11.3 mg/dL Normal 4.5 - 18.0 [facility] Comment on above: Performed By: #### 2 72339 ####[facility],[address] [place] [address] 27690 BMP with eGFRon 06-15-2017 Age 56 years Normal [facility] Comment on above: Performed By: #### 2 19092 ####[facility],[address] [place] [address] 69756 Anion gap 9 mmol/L Low 10 - 20 [facility] Comment on above: Performed By: #### 2 00858 ####[facility],[address] [place] [address] 30787 Calcium 8.8 mg/dL Normal 8.6 - 10.2 [facility] Comment on above: Performed By: #### 2 70578 ####[facility],[address] [place] [address] 45606 Chloride 110 mmol/L High 98 - 107 [facility] Comment on above: Performed By: #### 2 84660 ####[facility],[address] [place] [address] 40624 CO2 25.1 mmol/L Normal 21.0 - 31.0 [facility] Comment on above: Performed By: #### 2 62629 ####[facility],[address] [place] [address] 77559 Creatinine 0.8 mg/dL Normal 0.6 - 1.2 [facility] Comment on above: Performed By: #### 2 31353 ####[facility],[address] [place] [address] 93387 eGFR (non-black) mL/min/{1.73_m2} Normal 60 - 999 [facility] Comment on above: Performed By: #### 2 88493 ####[facility],[address] [place] [address] Result Comment: ACCO RDING TO THE NATIONAL KIDNEY DISEASE EDUCATION PROGRAM(NKDE), A NORMAL eGFRIS A VALUE GREATER THAN OR EQUAL TO 60 ML/MIN/1.73 SQ METERS.CHRONIC KIDNEY DISEASE: <60mL/MIN/1.73 SQ METERSKIDNEY FAILURE: <15mL/MIN/1.73 SQ METERSTHIS TEST SHOULD ONLY BE USED FOR PATIENTS 18 YEARS OF AGE AND OLDER. eGFR (non-black) Normal [facility] Comment on above: Result Comment: BASI C METABOLIC PANEL Performed By: #### 2 57403 ####[facility],[address] [place] [address] Glucose mass conc 213 mg/dL High 74 - 106 [facility] Comment on above: Performed By: #### 2 44493 ####[facility],[address] [place] [address] Potassium molar conc 4.2 mmol/L Normal 3.5 - 5.1 [facility] Comment on above: Performed By: #### 2 48878 ####[place] [address] Sodium 140 mmol/L Normal 136 - 145 [facility] Comment on above: Performed By: #### 2 81727 ####[place] [address] Urea nitrogen 13 mg/dL Normal 6 - 20 [facility] Comment on above: Performed By: #### 2 71971 ####[place] [address] CBCon 06-15-2017 Basophils Auto #/vol (Bld) 0.00 x10EE3/UL Normal 0.00 - 0.10 [facility] Comment on above: Performed By: #### 2 14620 ####[place] [address] Basophils/100 WBC Auto (Bld) 0.3 % Normal 0.0 - 2.0 [facility] Comment on above: Performed By: #### 2 95688 ####[facility],[address] [place] [address] Blood morphology N/A Normal [facility] Comment on above: Result Comment: {CD] Performed By: #### 2 57495 ####[facility],[address] [place] [address] CBC Normal [facility] Comment on above: Result Comment: CBC- COMPLETE BLOOD COUNT Performed By: #### 2 14970 ####[facility],[address] [place] [address] Eosinophils 0.00 x10EE3/UL Normal 0.00 - 0.50 [facility] Comment on above: Performed By: #### 2 58812 ####[facility],[address] [place] [address] Eosinophils/100 leukocytes 0.1 % Normal 0.0 - 7.0 [facility] Comment on above: Performed By: #### 2 39290 ####[facility],[address] [place] [address] Erythrocyte distribution width Auto Ratio (RBC) 12.9 % Normal 12.0 - 15.6 [facility] Comment on above: Performed By: #### 2 64783 ####[facility],[address] [place] [address] Erythrocytes (RBC) 4.37 x 10EE6/UL Normal 4.10 - 5.30 [facility] Comment on above: Performed By: #### 2 19248 ####[place] [address] Hematocrit (HCT) 40.1 % Normal 34.0 - 46.0 [facility] Comment on above: Performed By: #### 2 06477 ####[facility],[address] [place] [address] Hemoglobin mass conc (Bld) 14.0 g/dL Normal 12.0 - 16.0 [facility] Comment on above: Performed By: #### 2 83849 ####[facility],[address] [place] [address] Lymphocytes 1.50 x10EE3/UL Normal 0.80 - 2.80 [facility] Comment on above: Performed By: #### 2 58091 ####[facility],[address] [place] [address] Lymphocytes/100 leukocytes 18.4 % Low 20.0 - 45.0 [facility] Comment on above: Performed By: #### 2 51697 ####[facility],[address] [place] [address] MANUAL DIFF N/A Normal [facility] Comment on above: Performed By: #### 2 67939 ####[facility],[address] [place] [address] MCH 32 pg Normal 27 - 33 [facility] Comment on above: Performed By: #### 2 06879 ####[facility],[address] [place] [address] MCHC mass conc (RBC) 35 X10 3 Normal 32 - 36 [facility] Comment on above: Performed By: #### 2 62450 ####[facility],[address] [place], [place] [address] MCV 92 fL Normal 80 - 99 [facility] Comment on above: Performed By: #### 2 31830 ####[facility],[address] [place] [address] Monocytes 0.40 x10EE3/UL Normal 0.20 - 1.00 [facility] Comment on above: Performed By: #### 2 50056 ####[facility],[address] [place], [place] [address] MONOS % 4.7 % Normal 0.0 - 10.0 [facility] Comment on above: Performed By: #### 2 33011 ####[facility],[address] [place] [address] 26998 Neutrophils 6.30 x10EE3/UL Normal 1.50 - 7.10 [facility] Comment on above: Performed By: #### 2 62968 ####[facility],[address] [place] [address] 31492 Neutrophils/100 WBC Auto (Bld) 76.5 % High 46.0 - 76.0 [facility] Comment on above: Performed By: #### 2 95598 ####[facility],[address] [place] [address] 04299 Platelet mean volume (PMV) 8.8 fL Normal 6.6 - 10.5 [facility] Comment on above: Result Comment: AUTO MATED DIFFERENTIAL Performed By: #### 2 13996 ####[facility],[address] [place] [address] 10587 Platelets 179 x10EE3/UL Normal 150 - 450 [facility] Comment on above: Performed By: #### 2 75724 ####[facility],[address] [place] [address] 20326 WBC (Leukocytes) 8.2 x 10EE3/UL Normal 4.5 - 10.8 [facility] Comment on above: Performed By: #### 2 91733 ####[facility],[address] [place] [address] 88309 D-DIMER, QUANTITATIVEon 06-04 D-DIMER QUANT 387 ng/ml High 0 - 230 [facility] Comment on above: Performed By: #### 2 33416 ####[facility],[address] [place] [address] 66497 D-DIMER, QUANTITATIVE Normal [facility] Comment on above: Result Comment: ANABELLA T D-DIMER Performed By: #### 2 37398 ####[facility],[address] [place] [address] 88712 LACTATEon 06-15-2017 Lactate 29.3 mg/dL High 4.5 - 18.0 [facility] Comment on above: Performed By: #### 2 32236 ####[place] [address] TROPONINon 06-15-2017 Troponin I.cardiac mass conc ng/mL Normal 0.00 - 0.05 [facility] Comment on above: Result Comment: Elev ated troponin (above the 99th percentile) usually indicates myocardialischemia. Results must be interpreted within the clinical setting.1.Non-ischemic pathology can also cause elevated troponin levels (e.g., acute pulmonary embolism, myocarditis, pericarditis, heart failure, intracranial injury, rhabdomyolisis, sepsis, shock and renal insufficiency).2.Approximately 1% of healthy adults have elevated troponin levels.3.Analytical false positive results rarely occur(due to multiple interferences such as heterophile antibodies). Performed By: #### 2 55318 ####[place] [address] Troponin I.cardiac mass conc ng/mL Normal 0.00 - 0.05 [facility] Comment on above: Result Comment: Elev ated troponin (above the 99th percentile) usually indicates myocardialischemia. Results must be interpreted within the clinical setting.1.Non-ischemic pathology can also cause elevated troponin levels (e.g., acute pulmonary embolism, myocarditis, pericarditis, heart failure, intracranial injury, rhabdomyolisis, sepsis, shock and renal insufficiency).2.Approximately 1% of healthy adults have elevated troponin levels.3.Analytical false positive results rarely occur(due to multiple interferences such as heterophile antibodies). Performed By: #### 2 07959 ####[place] [address] URINALYSISon 06-15-2017 Bilirubin Negative Normal NORMAL: NEGATIVE [facility] Comment on above: Performed By: #### 2 45437 ####[place] [address] Blood Negative Normal NORMAL: NEGATIVE [facility] Comment on above: Performed By: #### 2 99774 ####[facility],[address] [place] [address],[facility] [address] Clarity clear Normal NORMAL: CLEAR [facility] Comment on above: Performed By: #### 2 42725 ####[facility],[address] [place] [address],[facility] [address] Color yellow Normal NORMAL: YELLOW [facility] Comment on above: Performed By: #### 2 06187 ####[facility],[address] [place] [address],[facility] [address] Glucose 250 Abnormal NORMAL: NORMAL [facility] Comment on above: Performed By: #### 2 49134 ####[facility],[address] [place] [address],[facility] [address] Ketone Negative Normal NORMAL: NEGATIVE [facility] Comment on above: Performed By: #### 2 34204 ####[facility],[address] [place] [address],[facility] [address] Leukocytes Negative Normal NORMAL: NEGATIVE [facility] Comment on above: Performed By: #### 2 49021 ####[facility],[address] [place] [address] 24794 Microscopic NOT INDICATED Normal [facility] Comment on above: Performed By: #### 2 41222 ####[facility],[address] [place] [address],[facility] [address] Nitrite Negative Normal NORMAL: NEGATIVE [facility] Comment on above: Performed By: #### 2 69782 ####[facility],[address] [place] [address] 94894 ph 6 Normal NORMAL: 5.0-8.0 [facility] Comment on above: Performed By: #### 2 76139 ####[facility],[address] [place] [address] 01793 Protein 15 Abnormal NORMAL: NEGATIVE [facility] Comment on above: Performed By: #### 2 65841 ####[facility],[address] [place] [address] [address] [place] 1.010 Normal NORMAL: 1.010-1.030 [facility] Comment on above: Performed By: #### 2 53550 ####[facility],[address] [place] [address] Specimen Type VOID Normal [facility] Comment on above: Performed By: #### 2 93154 ####[facility],[address] [place] [address] URINALYSIS Normal [facility] Comment on above: Result Comment: URIN ALYSIS Performed By: #### 2 62795 ####[facility],[address] [place] [address] Urobilinog NORM Normal NORMAL: NORMAL [facility] Comment on above: Performed By: #### 2 03977 ####[facility],[address] [place] [address] BNP (B-TYPE NATRIURETIC PEPT AZRA)on 06-14-2017 BNP 18 pg/mL Normal 1 - 100 [facility] Comment on above: Performed By: #### 2 79121 ####[facility],[address] [place] [address] CBCon 06-14-2017 Basophils Auto #/vol (Bld) 0.10 x10EE3/UL Normal 0.00 - 0.10 [facility] Comment on above: Result Comment: {CD] Performed By: #### 2 77893 ####[facility],[address] [place] [address] Basophils/100 WBC Auto (Bld) 1.0 % Normal 0.0 - 2.0 [facility] Comment on above: Performed By: #### 2 54503 ####[facility],[address] [place] [address] CBC Normal [facility] Comment on above: Result Comment: CBC- COMPLETE BLOOD COUNT Performed By: #### 2 65517 ####[facility],[address] [place] [address] 18155 Eosinophils 0.20 x10EE3/UL Normal 0.00 - 0.50 [facility] Comment on above: Performed By: #### 2 94304 ####[facility],[address] [place], [place] [address] Eosinophils/100 leukocytes 1.3 % Normal 0.0 - 7.0 [facility] Comment on above: Performed By: #### 2 30764 ####[facility],[address] [place] [address] Erythrocyte distribution width Auto Ratio (RBC) 13.3 % Normal 12.0 - 15.6 [facility] Comment on above: Performed By: #### 2 34686 ####[facility],[address] [place] [address] Erythrocytes (RBC) 4.86 x 10EE6/UL Normal 4.10 - 5.30 [facility] Comment on above: Performed By: #### 2 21172 ####[facility],[address] [place], [place] [address] Hematocrit (HCT) 44.6 % Normal 34.0 - 46.0 [facility] Comment on above: Performed By: #### 2 84085 ####[facility],[address] [place] [address] Hemoglobin mass conc (Bld) 15.3 g/dL Normal 12.0 - 16.0 [facility] Comment on above: Performed By: #### 2 80166 ####[facility],[address] [place] [address] 94842 Lymphocytes 3.00 x10EE3/UL High 0.80 - 2.80 [facility] Comment on above: Performed By: #### 2 48245 ####[facility],[address] [place] [address] 71385 Lymphocytes/100 leukocytes 23.8 % Normal 20.0 - 45.0 [facility] Comment on above: Performed By: #### 2 89309 ####[facility],[address] [place] [address] MCH 31 pg Normal 27 - 33 [facility] Comment on above: Performed By: #### 2 29799 ####[facility],[address] [place] [address] MCHC mass conc (RBC) 34 X10 3 Normal 32 - 36 [facility] Comment on above: Performed By: #### 2 50893 ####[facility],[address] [place] [address] MCV 92 fL Normal 80 - 99 [facility] Comment on above: Performed By: #### 2 31783 ####[facility],[address] [place] [address] Monocytes 1.00 x10EE3/UL Normal 0.20 - 1.00 [facility] Comment on above: Performed By: #### 2 21268 ####[facility],[address] [place] [address] MONOS % 7.8 % Normal 0.0 - 10.0 [facility] Comment on above: Performed By: #### 2 08556 ####[facility],[address] [place] [address] Neutrophils 8.40 x10EE3/UL High 1.50 - 7.10 [facility] Comment on above: Performed By: #### 2 13270 ####[facility],[address] [place] [address] Neutrophils/100 WBC Auto (Bld) 66.1 % Normal 46.0 - 76.0 [facility] Comment on above: Performed By: #### 2 56343 ####[facility],[address] [place] [address] Platelet mean volume (PMV) 9.3 fL Normal 6.6 - 10.5 [facility] Comment on above: Result Comment: AUTO MATED DIFFERENTIAL Performed By: #### 2 91911 ####[facility],[address] [facility] [address] Platelets 212 x10EE3/UL Normal 150 - 450 [facility] Comment on above: Performed By: #### 2 20503 ####[facility],[address] [place] [address] 46695 WBC (Leukocytes) 12.6 x 10EE3/UL High 4.5 - 10.8 [facility] Comment on above: Performed By: #### 2 06004 ####[facility],[address] [place] [address] 72585 CHEST APon 06-14-2017 CHEST AP [place] [id number] Patient: VERO NGO Phone#: : 1960 Age: 56 Gender: F Pt. Type: ER Account: [id number] Location: [facility] Ordering: DENISE NEVILLE Exam Date: 06/14/2017/18:24 Family Phys: NO DOCTOR Charge Code: 818808 Physician: [place] Order #: [id number] DLP Dose#: PROCEDURE: X-RAY CHEST AP 1 VIEW COMPARISON: [facility], XR, CHEST PA/LAT, 10/07/2016, 13:58. INDICATIONS: Cough [...] fracture or visible bony lesion. OTHER: Negative. CONCLUSION: 1. Atelectasis. Dictated by: Graciela Panda MD on 06/14/2017 at 18:39 Approved by: Graciela Panda MD on 06/14/2017 at 18:39 Normal [facility] CMP with eGFRon 06-14-2017 Age 56 years Normal [facility] Comment on above: Performed By: #### 2 36739 ####[facility],[address] [place] [address] 74470 Albumin 4.2 g/dL Normal 3.4 - 4.8 [facility] Comment on above: Performed By: #### 2 89829 ####[facility],[address] [place] [address] 11185 Albumin/Globulin Ratio 1.3 {ratio} Normal 0.9 - 1.6 [facility] Comment on above: Performed By: #### 2 42732 ####[facility],[address] [place] [address] 46717 ALK PHOS 118 U/L Normal 38 - 126 [facility] Comment on above: Performed By: #### 2 53309 ####[facility],[address] [place] [address] 69800 ALT/SGPT 47 U/L High 8 - 35 [facility] Comment on above: Performed By: #### 2 53776 ####[facility],[address] [place] [address] 92558 Anion gap 15 mmol/L Normal 10 - 20 [facility] Comment on above: Performed By: #### 2 29477 ####[facility],[address] [place] [address] 53024 AST/SGOT 55 U/L High 13 - 39 [facility] Comment on above: Performed By: #### 2 00712 ####[facility],[address] [place] [address] 68343 B/C RATIO 12 ratio Normal 0 - 30 [facility] Comment on above: Performed By: #### 2 95507 ####[facility],[address] [place] [address] 24173 Bilirubin (total) 0.4 mg/dL Normal 0.0 - 1.5 [facility] Comment on above: Performed By: #### 2 66467 ####[facility],[address] [place] [address] 34465 Calcium 9.1 mg/dL Normal 8.6 - 10.2 [facility] Comment on above: Performed By: #### 2 68211 ####[facility],[address] [place] [address] 20751 Chloride 104 mmol/L Normal 98 - 107 [facility] Comment on above: Performed By: #### 2 02233 ####[facility],[address] [place] [address] 93885 CO2 23.9 mmol/L Normal 21.0 - 31.0 [facility] Comment on above: Performed By: #### 2 12422 ####[facility],[address] [place] [address] 46757 Creatinine 1.3 mg/dL High 0.6 - 1.2 [facility] Comment on above: Performed By: #### 2 38981 ####[facility],[address] [place] [address] 68951 eGFR (non-black) 43 ML/MINUTE Low 60 - 999 [facility] Comment on above: Performed By: #### 2 61923 ####[facility],[address] [place] [address] 00759 eGFR (non-black) Normal [facility] Comment on above: Result Comment: COMP REHENSIVE METABOLIC PANEL Performed By: #### 2 72718 ####[facility],[address] [place] [address] 17904 eGFR (non-black) 52 ML/MINUTE Low 60 - 999 [facility] Comment on above: Result Comment: ACCO RDING TO THE NATIONAL KIDNEY DISEASE EDUCATION PROGRAM(NKDE), A NORMAL eGFRIS A VALUE GREATER THAN OR EQUAL TO 60 ML/MIN/1.73 SQ METERS.CHRONIC KIDNEY DISEASE: <60mL/MIN/1.73 SQ METERSKIDNEY FAILURE: <15mL/MIN/1.73 SQ METERSTHIS TEST SHOULD ONLY BE USED FOR PATIENTS 18 YEARS OF AGE AND OLDER. Performed By: #### 2 89360 ####[facility],[address] [place] [address] 20800 Globulin 3.2 g/dL Normal 1.5 - 3.8 [facility] Comment on above: Performed By: #### 2 63960 ####[facility],[address] [place] [address] 65589 Glucose mass conc 125 mg/dL High 74 - 106 [facility] Comment on above: Performed By: #### 2 40166 ####[facility],[address] [place] [address] 00040 Potassium molar conc 3.7 mmol/L Normal 3.5 - 5.1 [facility] Comment on above: Performed By: #### 2 69982 ####[facility],[address] [place] [address] 27138 Protein 7.4 g/dL Normal 6.4 - 8.3 [facility] Comment on above: Performed By: #### 2 50422 ####[facility],[address] [place] [address] 21804 Sodium 139 mmol/L Normal 136 - 145 [facility] Comment on above: Performed By: #### 2 29144 ####[facility],[address] [place] [address] 42460 Urea nitrogen 15 mg/dL Normal 6 - 20 [facility] Comment on above: Performed By: #### 2 78119 ####[facility],[address] [place] [address] 06912 CULTURE BLOODon 06-14-2017 CULTURE BLOOD CULTURE BLOOD _BLOOD CULTURE_ORDER #[id number]:1 of 2 24 HOUR REPORT _NO_GROWTH 06/16/17.0616.JLN. 48 HOUR REPORT _NO_GROWTH 06/16/17.2351.LMM. 72 HOUR REPORT _NO_GROWTH 06/18/17.0057.LMM. GRAM STAIN: M I C R O B I O L O G Y R E P O R T FINAL Antimicrobial Susceptibility and Organism Identification Report Specimen Number : [id number] Requested : 06/14/17 Specimen Source : BLOOD Collected : 06/14/17 18:30 [place] of Isolation : Emergency Room Received : 06/14/17 18:38 Requesting Physician : TING PHYSICIAN --- Patient/Specimen Tests and Comments Specimen Comments FINAL REPORT: No Growth at 5 Days Te ch : ___ Source : BLOOD ID # : [id number] FINAL Report Date : / / : Collected : 06/14/17 18:30 06/20/17.635.MDS. 06/20/17.MDS.COMPL ETE Normal [facility] Comment on above: Performed By: #### 2 63833 ####[facility],[address] [place] [address] CULTURE BLOOD CULTURE BLOOD _BLOOD CULTURE_ORDER #[id number]:2 of 2 24 HOUR REPORT _NO_GROWTH 06/16/17.0616.JLN. 48 HOUR REPORT _NO_GROWTH 06/16/17.2351.LMM. 72 HOUR REPORT _NO_GROWTH 06/18/17.0057.LMM. GRAM STAIN: M I C R O B I O L O G Y R E P O R T FINAL Antimicrobial Susceptibility and Organism Identification Report Specimen Number : [id number] Requested : 06/14/17 Specimen Source : BLOOD Collected : 06/14/17 18:30 [place] [facility] Isolation : Emergency Room Received : 06/14/17 18:38 Requesting Physician : TING PHYSICIAN --- Patient/Specimen Tests and Comments Specimen Comments FINAL REPORT: No Growth at 5 Days Te ch : ___ Source : BLOOD ID # : [id number] FINAL Report Date : / / : Collected : 06/14/17 18:30 06/20/1736.MDS. 06/20/1736.MDS.COMPL ETE Normal [facility] Comment on above: Performed By: #### [id number] ####[facility],[address] [place] [address] LACTATEon 06-14-2017 Lactate 37.5 mg/dL Critically high 4.5 - 18.0 [facility] Comment on above: Result Comment: { CA LLED TO ER AT 1910, RA 1909{ READ BACK BY CHYNA TO CWB{ TEST REPEATED Performed By: #### [id number] ####[facility],[address] [place], [place] [id number] TROPONINon 06-14-2017 Troponin I.cardiac mass conc ng/mL Normal 0.00 - 0.05 [facility] Comment on above: Result Comment: Elev ated troponin (above the 99th percentile) usually indicates myocardialischemia. Results must be interpreted within the clinical setting.1.Non-ischemic pathology can also cause elevated troponin levels (e.g., acute pulmonary embolism, myocarditis, pericarditis, heart failure, intracranial injury, rhabdomyolisis, sepsis, shock and renal insufficiency).2.Approximately 1% of healthy adults have elevated troponin levels.3.Analytical false positive results rarely occur(due to multiple interferences such as heterophile antibodies). Performed By: #### [id number] ####[facility],[address] [place], [place] [id number] Office Visit: probable COPD exacerbationon 08-01-2016 Protein mass conc yes [facility] Phone: Protein mass conc Done [facility] Phone: Tobacco smoking status AKIS Current every day smoker [facility] Work Phone: [phone] Tobacco smoking status AKIS Never [facility] Work Phone: Lab Report: iPO2on 1 iPO2 70 mmHG Low 75-100 [facility] Work Phone: [phone] Lab Report: LIPIDon 10-12-20 11 Cholesterol in HDL mass conc 43 mg/dL Normal [facility] Work Phone: [phone] Cholesterol in LDL mass conc 151 mg/dL High 0-130 [facility] Work Phone: [phone] Cholesterol mass conc 236 mg/dL High 200 [facility] Phone: [phone] Lipoprotein.pre-beta mass conc 42 mg/dL High 5-40 [facility] Work Phone: [phone] Triglyceride mass conc 210 mg/dL High [facility] Work Phone: [phone] Lab Report: LIVERon 10-12-20 11 Albumin mass conc 3.9 g/dL Normal 3.4-5.0 [facility] Work Phone: ALP enzyme act/vol (Bld) 138 U/L High 50-136 [facility] Work Phone: [phone] ALT enzyme act/vol 30 U/L Normal 12-78 [facility] Work Phone: [phone] AST enzyme act/vol 9 U/L Low 15-37 [facility] Work Phone: [phone] Bilirubin mass conc 0.30 mg/dL Normal 0.00-1.00 [facility] Work Phone: [phone] Bilirubin.direct mass conc 0.08 mg/dL Normal 0.00-0.30 [facility] Work Phone: [phone] Lab Report: PTon 10-12-2011 INR Coag RelTime (PPP) 0.9 {INR} Normal [facility] Work Phone: [phone] PTP 12.1 SECONDS Normal 11.9-14.4 [facility] Work Phone: Lab Report: PTTon 10-12-2011 aPTT Coag time (Bld) 26.9 s Normal 24.1-36.2 [facility] Work Phone: [phone] Replaced Document: Davon Suarez CG Observationson 10-09-2011 EKG QRS axis 30 deg [facility] Work Phone: [phone] Interpretation Sinus Rhythm WITHIN NORMAL LIMITS [facility] Work Phone: [phone] P Alderson 55 deg [facility] Work Phone: [phone] SC Interval 180 ms [facility] Work Phone: [phone] QRS Duration 88 ms [facility] Work Phone: QT Interval new path ms [facility] Work Phone: T Ald[place] 41 deg [facility] Work Phone: Vital Signs Date Time Vital Sign Value Performing Clinician Facility 03-05-2025 14:00-0400 Reason For Taking VItal Signs TAMRA THOMAS MD [facility] 03-05-2025 11:15-0400 Heart rate 94 /min TAMRA THOMAS MD [facility] 03-05-2025 11:12-0400 Diastolic Blood Pressure Non-Invasive 80 mm[Hg] TAMRA THOMAS MD [facility] 03-05-2025 11:12-0400 Mean blood pressure 99 mm[Hg] TAMRA THOMAS MD [facility] 03-05-2025 11:12-0400 Systolic Blood Pressure Non-Invasive 142 mm[Hg] TAMRA THOMAS MD [facility] 03-05-2025 11:12-0400 Heart rate 94 /min TAMRA THOMAS MD [facility] 03-05-2025 11:12-0400 Body temperature 98.6 [degF] TAMRA THOMAS MD [facility] 03-05-2025 11:12-0400 Respiratory rate 18 /min TAMRA THOMAS MD [facility] 03-05-2025 10:49-0400 Heart rate 91 /min TAMRA THOMAS MD [facility] 03-05-2025 10:49-0400 Respiratory rate 16 /min TAMRA THOMAS MD [facility] 03-05-2025 10:04-0400 Heart rate 91 /min TAMRA THOMAS MD [facility] 03-05-2025 10:02-0400 Diastolic Blood Pressure Non-Invasive 74 mm[Hg] TAMRA THOMAS MD [facility] 03-05-2025 10:02-0400 Mean blood pressure 95 mm[Hg] TAMRA THOMAS MD [facility] 03-05-2025 10:02-0400 Systolic Blood Pressure Non-Invasive 144 mm[Hg] TAMRA THOMAS MD [facility] 03-05-2025 10:02-0400 Respiratory rate 16 /min TAMRA THOMAS MD [address] [place] [address] 03-05-2025 09:16-0400 Diastolic Blood Pressure Non-Invasive 54 mm[Hg] TAMRA THOMAS MD [facility] 03-05-2025 09:16-0400 Systolic Blood Pressure Non-Invasive 109 mm[Hg] TAMRA THOMAS MD [facility] 03-05-2025 08:00-0400 Mean blood pressure 77 mm[Hg] TAMRA THOMAS MD [facility] 03-05-2025 07:30-0400 Body temperature 98.42 [degF] TAMRA THOMAS MD [facility] 03-05-2025 06:58-0400 Heart rate 94 /min TAMRA THOMAS MD [facility] 03-05-2025 03:37-0400 Body height 170 cm TAMRA THOMAS MD [facility] 03-05-2025 03:37-0400 Body weight 90.2 kg TAMRA THOMAS MD [facility] 03-05-2025 03:37-0400 Body weight 31.21 kg/m2 TAMRA THOMAS MD [facility] 03-05-2025 03:26-0400 Body temperature 98.6 [degF] TAMRA THOMAS MD [facility] 03-04-2025 22:30-0400 Reason For Taking VItal Signs TAMRA THOMAS MD [facility] 03-04-2025 19:16-0400 Heart rate 83 /min TAMRA THOMAS MD [facility] 03-04-2025 13:01-0400 Heart rate 97 /min TAMRA THOMAS MD [facility] 03-04-2025 10:20-0400 Body temperature 97.7 [degF] TAMRA THOMAS MD [facility] 03-04-2025 10:20-0400 Heart rate 98 /min TAMRA THOMAS MD [facility] 03-04-2025 09:30-0400 Diastolic Blood Pressure Non-Invasive 82 mm[Hg] NIDAL CHOUJAA DO [facility] 03-04-2025 09:30-0400 Heart rate 95 /min NIDAL CHOUJAA DO [facility] 03-04-2025 09:30-0400 Respiratory rate 14 /min NIDAL CHOUJAA DO [facility] 03-04-2025 09:30-0400 Systolic Blood Pressure Non-Invasive 156 mm[Hg] NIDAL CHOUJAA DO [facility] 03-04-2025 08:44-0400 Diastolic Blood Pressure Non-Invasive 80 mm[Hg] NIDAL CHOUJAA DO [facility] 03-04-2025 08:44-0400 Heart rate 88 /min NIDAL CHOUJAA DO [facility] 03-04-2025 08:44-0400 Respiratory rate 16 /min NIDAL CHOUJAA DO [facility] 03-04-2025 08:44-0400 Systolic Blood Pressure Non-Invasive 144 mm[Hg] NIDAL CHOUJAA DO [facility] 03-04-2025 07:37-0400 Diastolic Blood Pressure Non-Invasive 71 mm[Hg] NIDAL CHOUJAA DO [facility] 03-04-2025 07:37-0400 Systolic Blood Pressure Non-Invasive 136 mm[Hg] NIDAL CHOUJAA DO [facility] 03-04-2025 07:21-0400 Heart rate 88 /min NIDAL CHOUJAA DO [facility] 03-04-2025 07:21-0400 Respiratory rate 16 /min NIDAL CHOUJAA DO [facility] 03-04-2025 05:06-0400 Heart rate 87 /min NIDAL CHOUJAA DO [facility] 03-04-2025 04:40-0400 Heart rate 86 /min NIDAL CHOUJAA DO [facility] 03-04-2025 03:25-0400 SaO2% (BldA) [Mass fraction] 92.6 % NIDAL CHOUJAA DO [facility] 03-04-2025 02:49-0400 Body temperature 96.98 [degF] NIDAL CHOUJAA DO [facility] 03-04-2025 02:49-0400 Heart rate 93 /min NIDAL CHOUJAA DO [facility] 06-01-2024 13:43-0400 Body height 170.2 cm MAYI VILLALOBOS MD [facility] 06-01-2024 13:43-0400 Body temperature 97.88 [degF] MAYI VILLALOBOS MD [facility] 06-01-2024 13:43-0400 Body weight 72.7 kg MAYI VILLALOBOS MD [facility] 06-01-2024 13:43-0400 Diastolic Blood Pressure Non-Invasive 96 mm[Hg] MAYI VILLALOBOS MD [facility] 06-01-2024 13:43-0400 Heart rate 92 /min MAYI VILLALOBOS MD [facility] 06-01-2024 13:43-0400 Respiratory rate 20 /min MAYI VILLALOBOS MD [facility] 06-01-2024 13:43-0400 Systolic Blood Pressure Non-Invasive 184 mm[Hg] MAYI VILLALOBOS MD [facility] 05-26-2024 21:00-0400 Body height 170.2 cm [facility] 05-26-2024 21:00-0400 Body temperature 98.06 [degF] [facility] 05-26-2024 21:00-0400 Body weight 65.9 kg [facility] 05-26-2024 21:00-0400 Diastolic Blood Pressure Non-Invasive 78 mm[Hg] [facility] 05-26-2024 21:00-0400 Heart rate 90 /min SUSAN REICHFIELD DO [facility] 05-26-2024 21:00-0400 Respiratory rate 20 /min [facility] 05-26-2024 21:00-0400 Systolic Blood Pressure Non-Invasive 134 mm[Hg] [facility] 03-03-2024 14:51-0400 Body height 170.18 cm HOUSE CALLS NURSE PRACTITIONER-C Sammy Hellinger HOUSE CALLS NURSE PRACTITIONER Work Phone: [facility] 03-03-2024 14:51-0400 Body mass index (BMI) [Ratio] 29.7 kg/m2 HOUSE CALLS NURSE PRACTITIONER-C Sammy Hellinger HOUSE CALLS NURSE PRACTITIONER Work Phone: [facility] 03-03-2024 14:51-0400 Body weight 86.18 kg HOUSE CALLS NURSE PRACTITIONER-C Sammy Hellinger HOUSE CALLS NURSE PRACTITIONER Work Phone: [facility] 03-03-2024 14:51-0400 Diastolic blood pressure 91 mm[Hg] HOUSE CALLS NURSE PRACTITIONER-C Sammy Hellinger HOUSE CALLS NURSE PRACTITIONER Work Phone: [facility] 03-03-2024 14:51-0400 Respiratory rate 18 /min HOUSE CALLS NURSE PRACTITIONER-C Sammy Hellinger HOUSE CALLS NURSE PRACTITIONER Work Phone: [facility] 03-03-2024 14:51-0400 Systolic blood pressure 167 mm[Hg] HOUSE CALLS NURSE PRACTITIONER-C Sammy Hellinger HOUSE CALLS NURSE PRACTITIONER Work Phone: [facility] 01-14-2024 18:46-0400 Heart rate 93 /min [facility] 01-14-2024 18:46-0400 Inhaled oxygen flow rate 2 L/min [facility] 01-14-2024 18:46-0400 Respiratory rate 20 /min [facility] 01-14-2024 18:46-0400 SaO2% (BldA) [Mass fraction] 95 % [facility] 01-14-2024 17:42-0400 Body temperature 98.1 [degF] [facility] 01-14-2024 17:42-0400 Diastolic blood pressure 64 mm[Hg] [facility] 01-14-2024 17:42-0400 Heart rate 112 /min [facility] 01-14-2024 17:42-0400 Respiratory rate 23 /min [facility] 01-14-2024 17:42-0400 SaO2% (BldA) [Mass fraction] 94 % [facility] 01-14-2024 17:42-0400 Systolic blood pressure 105 mm[Hg] [facility] 01-14-2024 17:36-0400 Inhaled oxygen flow rate 2 L/min [facility] 01-14-2024 14:56-0400 Body height 170.[address] [facility] 05-31-2023 06:45-0400 Body temperature 97.52 [degF] DR MARTINA DE LEON MD [address] [place] [address] 05-31-2023 06:45-0400 Diastolic Blood Pressure Non-Invasive [address] MARTINA DE LEON MD [address] [place] [address] 05-31-2023 06:45-0400 Heart rate 71 /min DR MARTINA DE LEON MD [address] [place] [address] 05-31-2023 06:45-0400 Reason For Taking VItal Signs DR MARTINA DE LEON MD [address] [place] [address] 05-31-2023 06:45-0400 Respiratory rate 16 /min DR MARTINA DE LEON MD [address] [place] [address] 05-31-2023 06:45-0400 Systolic Blood Pressure Non-Invasive [address] MARTINA DE LEON MD [address] [place] [address] 05-31-2023 02:02-0400 Body temperature 98.06 [degF] DR MARTINA DE LEON MD [address] [place] [address] 05-31-2023 02:02-0400 Diastolic Blood Pressure Non-Invasive [address] MARTINA DE LEON MD [facility] 05-31-2023 02:02-0400 Heart rate 67 /min DR MARTINA DE LEON MD [facility] 05-31-2023 02:02-0400 Reason For Taking VItal Signs DR MARTINA DE LEON MD [address] [place] [address] 05-31-2023 02:02-0400 Respiratory rate 16 /min DR MARTINA DE LEON MD [address] [place] [address] 05-31-2023 02:02-0400 Systolic Blood Pressure Non-Invasive [address] MARTINA DE LEON MD [address] [place] [address] 05-30-2023 21:46-0400 Body temperature 98.6 [degF] DR MARTINA DE LEON MD [address] [place] [address] 05-30-2023 21:46-0400 Diastolic Blood Pressure Non-Invasive [address] MARTINA DE LEON MD [address] [place] [address] 05-30-2023 21:46-0400 Heart rate 90 /min DR MARTINA DE LEON MD [address] [place] [address] 05-30-2023 21:46-0400 Reason For Taking VItal Signs DR MARTINA DE LEON MD [address] [place] [address] 05-30-2023 21:46-0400 Respiratory rate 18 /min DR MARTINA DE LEON MD [address] [place] [address] 05-30-2023 21:46-0400 Systolic Blood Pressure Non-Invasive [address] MARTINA DE LEON MD [address] [place] [address] 05-30-2023 18:07-0400 Blood Pressure Cuff Size DR MARTINA DE LEON MD [address] [place] [address] 05-30-2023 18:07-[address] MARTINA DE LEON MD [facility] 05-30-2023 18:07-[address] MARTINA Smith MD [facility] 05-30-2023 14:45-0400 Blood Pressure Cuff Size DR MARTINA DE LEON MD [address] [place] [address] 05-30-2023 14:45-[address] MARTINA DE LEON MD [address] [place] [address] 05-30-2023 14:45-[address] MARTINA Smith MD [address] [place] [address] 05-30-2023 10:25-[address] MARTINA DE LEON MD [address] [place] [address] 05-30-2023 10:25-[address] MARTINA Smith MD [address] [place] [address] 05-30-2023 06:28-0400 Heart rate 67 /min DR MARTINA DE LEON MD [address] [place] [address] 05-30-2023 03:03-0400 Body temperature 97.88 [degF] DR MARTINA DE LEON MD [address] [place] [address] 05-30-2023 02:46-0400 Heart rate 67 /min DR MARTINA DE LEON MD [address] [place] [address] 05-29-2023 22:08-0400 Body temperature 97.88 [degF] DR MARTINA DE LEON MD [address] [place] [address] 05-29-2023 18:38-0400 Body temperature 97.52 [degF] DR MARTINA DE LEON MD [address] [place] [address] 05-29-2023 16:18-0400 Heart rate 86 /min DR MARTINA DE LEON MD [address] [place] [address] 05-29-2023 15:08-0400 Blood Pressure Cuff Size DR MARTINA DE LEON MD [facility] 05-28-2023 22:44-0400 Body height 167.[address] MARTINA DE LEON MD [facility] 05-28-2023 22:44-0400 Body weight 81.[address] MARTINA DE LEON MD [facility] 05-28-2023 22:44-0400 Body weight 29.05 kg/m2 DR MARTINA DE LEON MD [facility] 05-01-2023 07:46-0400 Body height 170.[address] Andry Beatty Work Phone: [facility] 05-01-2023 07:46-0400 Body mass index (BMI) [Ratio] 28.1 kg/m2 Dr. Andry Beatty Work Phone: [facility] 05-01-2023 07:46-0400 Body temperature 97.6 [degF] Dr. Andry Beatty Work Phone: [facility] 05-01-2023 07:46-0400 Body weight 81.[address] Andry Beatty Work Phone: [facility] 05-01-2023 07:46-0400 Diastolic blood pressure 82 mm[Hg] Dr. Andry Beatty Work Phone: [facility] 05-01-2023 07:46-0400 Heart rate 105 /min Dr. Andry Beatty Work Phone: [facility] 05-01-2023 07:46-0400 Inhaled oxygen flow rate 4 L/min Dr. Andry Beatty Work Phone: [facility] 05-01-2023 07:46-0400 Respiratory rate 22 /min Dr. Andry Beatty Work Phone: [facility] 05-01-2023 07:46-0400 SaO2% (BldA) [Mass fraction] 90 % Dr. Andry Beatty Work Phone: [facility] 05-01-2023 07:46-0400 Systolic blood pressure 118 mm[Hg] Dr. Andry Beatty Work Phone: [facility] 03-14-2023 19:55-0400 Diastolic Blood Pressure Non-Invasive 97 1 SHEILA MICHAEL MD [facility] 03-14-2023 19:55-0400 Heart rate 107 /min SHEILA MICHAEL MD [facility] 03-14-2023 19:55-0400 Respiratory rate 22 /min SHEILA MICHAEL MD [facility] 03-14-2023 19:55-0400 Systolic Blood Pressure Non-Invasive 156 1 SHEILA MICHAEL MD [facility] 03-14-2023 19:12-0400 Heart rate 105 /min SHEILA MICHAEL MD [facility] 03-14-2023 18:41-0400 Heart rate 99 /min SHEILA MICHAEL MD [facility] 03-14-2023 18:41-0400 Respiratory rate 22 /min SHEILA MICHAEL MD [facility] 03-14-2023 17:50-0400 Body temperature 98.78 [degF] SHEILA MICHAEL MD [facility] 03-14-2023 17:50-0400 Diastolic Blood Pressure Non-Invasive 70 1 SHEILA MICHAEL MD [facility] 03-14-2023 17:50-0400 Heart rate 107 /min SHEILA MICHAEL MD [facility] 03-14-2023 17:50-0400 Respiratory rate 26 /min SHEILA MICHAEL MD [facility] 03-14-2023 17:50-0400 Systolic Blood Pressure Non-Invasive 116 1 SHEILA MICHAEL MD [facility] 08-01-2016 14:37-0400 BMI (Body Mass Index) 32.34 kg/m2 Maki Aprilho SCHOOL LABORATORY TECHNICIAN [facility] Work Phone: 08-01-2016 14:37-0400 Body Temperature 98.1 [degF] Maki 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 [facility] Work Phone: 08-01-2016 14:37-0400 Body Temperature 98.06 [degF] Maki 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 [facility] Work Phone: 08-01-2016 14:37-0400 BP Diastolic 89 mm[Hg] Maki 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 [facility] Work Phone: 08-01-2016 14:37-0400 BP Systolic 149 mm[Hg] Maki 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 [facility] Work Phone: 08-01-2016 14:37-0400 BSA (Body Surface Area) 2.04 m2 Maki 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 [facility] Work Phone: 08-01-2016 14:37-0400 Height 169.55 cm Maki 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 [facility] Work Phone: 08-01-2016 14:37-0400 Pulse (Heart Rate) 120 /min Maki Mikensho SCHOOL LABORATORY TECHNICIAN [facility] Work Phone: 08-01-2016 14:37-0400 Pulse Oximetry 96 % Maki 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 [facility] Work Phone: 08-01-2016 14:37-0400 Respiratory Rate 18 /min Maki 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 [facility] Work Phone: 08-01-2016 14:37-0400 Weight 92.99 kg Maki 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 [facility] Work Phone: 08-01-2016 14:37-0400 Weight 93.18 kg Maki 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 [facility] Work Phone: 10-09-2011 17:20-0500 Heart rate 74 /min Maki 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 [facility] Work Phone: 10-09-2011 17:20-0500 Heart rate 425 ms Maki 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 [facility] Work Phone: Encounters Encounter Date Encounter Type Care Provider Facility Start: 05-28-2025 ambulatory JULIO CESAR JACOBS DO Faci [facility]ity[facility] Start: 05-18-2025 ambulatory JULIO CESAR JACOBS DO Faci [facility]ity[facility] Start: 04-20-2025 End: 04-20-2025 ambulatory JULIO CESAR JACOBS DO [facility] Start: 04-20-2025 End: 04-20-2025 Patient encounter procedure JULIO CESAR JACOBS DO [facility] Start: 03-04-2025 End: 03-05-2025 Evaluation and management of inpatient TAMRA THOMAS MD [facility] Start: 03-04-2025 End: 03-04-2025 Emergency department patient visit TYLER ALBA DO [facility] Start: 11-27-2024 ambulatory JULIO CESAR JACOBS DO Faci lity[facility] Start: 11-20-2024 End: 11-24-2024 ambulatory JULIO CESAR JACOBS DO [facility] Start: 11-20-2024 End: 11-24-2024 Encounter for general adult medical examination without abnormal findings JULIO CESAR JACOBS DO Facility:[facility] Start: 11-20-2024 End: 11-24-2024 Outreach Lab JULIO CESAR JACOBS DO [facility] Start: 11-19-2024 ambulatory JULIO CESAR JACOBS DO Faci lity:[facility] Start: 08-14-2024 End: 08-18-2024 ambulatory JULIO CESAR JACOBS DO Facility:[facility] Start: 08-14-2024 End: 08-18-2024 Outreach Lab JULIO CESAR JACOBS DO [facility] Start: 06-26-2024 End: 06-26-2024 ambulatory JULIO CESAR JACOBS DO Facility:[facility] Start: 06-26-2024 End: 06-26-2024 Patient encounter procedure JULIO CESAR JACOBS DO [facility] Start: 06-26-2024 End: 06-26-2024 Well adult monitoring check done JULIO CESAR JACOBS DO [facility] Start: 06-23-2024 ambulatory JULIO CESAR JACOBS DO Faci lity:[facility] Start: 06-01-2024 End: 06-01-2024 Emergency department patient visit MAYI VILLALOBOS MD [facility] Start: 05-28-2024 End: 05-28-2024 ambulatory SUSAN SAMUEL Facility:[facility] Start: 05-28-2024 End: 05-28-2024 Patient encounter procedure SUSAN SAMUEL DO [facility] Start: 05-26-2024 End: 05-26-2024 Emergency department patient visit SUSAN SAMUEL DO [facility] Start: 03-03-2024 End: 03-03-2024 Patient encounter procedure HOUSE CALLS NURSE PRACTITIONER-C Sammy Zabala HOUSE CALLS NURSE PRACTITIONER Work Phone: [facility] Spec[facility] Work Phone: Start: 03-03-2024 End: 03-03-2024 Patient encounter procedure HOUSE CALLS NURSE PRACTITIONER-C Sammy Zabala HOUSE CALLS NURSE PRACTITIONER Work Phone: [facility] Work Phone: Start: 03-03-2024 End: 03-03-2024 ambulatory HOUSE CALLS NURSE PRACTITIONER-C Sammy Zabala HOUSE CALLS NURSE PRACTITIONER Work Phone: [facility] Work Phone: Start: 02-20-2024 End: 02-20-2024 ambulatory JULIO CESAR JACOBS DO Facility:[facility] Start: 02-20-2024 End: 02-20-2024 Patient encounter procedure JULIO CESAR JACOBS DO [facility] Start: 02-18-2024 End: 02-22-2024 ambulatory JULIO CESAR JACOBS DO Facility:[facility] Start: 02-18-2024 End: 02-22-2024 Encounter for general adult medical examination without abnormal findings JULIO CESAR JACOBS DO Facility:[facility] Start: 02-18-2024 End: 02-22-2024 Outreach Lab JULIO CESAR JACOBS DO [facility] Start: 02-07-2024 ambulatory COTY Aldrich PLUMBER'S ASSISTANT-LOOM STOP CHECKER Facility:[facility] Start: 01-14-2024 End: 01-14-2024 Emergency department patient visit Sammy Zamoramauriceting HOUSE CALLS NURSE PRACTITIONER Facility:[facility] Start: 01-14-2024 End: 01-14-2024 Emergency department patient visit [facility] Work Phone: Start: 01-13-2024 End: 01-13-2024 ambulatory COTY OLSEN PLUMBER'S ASSISTANT-LOOM STOP CHECKER Facility:[facility] Start: 01-13-2024 End: 01-13-2024 Patient encounter procedure COTY OLSEN PLUMBER'S ASSISTANT-LOOM STOP CHECKER [facility] Start: 11-30-2023 ambulatory Sammy Zabala HOUSE CALLS NURSE PRACTITIONER Faci lity:[facility] Start: 11-30-2023 Registered Referred [facility] Referred Work Phone: Start: 11-20-2023 ambulatory JULIO CESAR JACOBS DO Faci lity:[facility] Start: 11-08-2023 ambulatory Sammy Zabala HOUSE CALLS NURSE PRACTITIONER Faci [facility]ity:[facility] Start: 08-08-2023 ambulatory Andry [facility] Start: 05-28-2023 End: 05-31-2023 Evaluation and management of inpatient DR MARTINA DE LEON MD [facility] Start: 05-28-2023 End: 05-28-2023 Emergency department patient visit Trenton Sarmiento Facility:[facility] Start: 05-01-2023 End: 05-02-[address] Andry Beatty Work Phone: [facility] Work Phone: Start: 05-01-2023 End: 05-01-[address] Andry Beatty Work Phone: [facility]-Pulmonary Medicine [facility] Work Phone: Start: 03-14-2023 End: 03-14-2023 Emergency department patient visit SHEILA MICHAEL MD [facility] Start: 01-16-2023 End: 01-16-2023 ambulatory [facility] Work Phone: Start: 01-16-2023 End: 01-16-2023 Patient encounter procedure [facility] Services/Neurology Start: 12-17-2022 End: 12-17-2022 ambulatory [facility] Work Phone: Start: 12-17-2022 End: 12-17-2022 Patient encounter procedure [facility] Start: 08-09-2022 End: 08-09-2022 ambulatory [facility]ahnaz Work Phone: Start: 08-09-2022 End: 08-09-2022 Patient encounter procedure [facility] Start: 06-18-2022 End: 06-18-2022 Patient encounter procedure [facility] Start: 06-04-2022 End: 06-04-2022 Patient encounter procedure [facility] Start: 05-13-2018 End: 05-13-2018 Emergency department patient visit [facility] Start: 03-07-2018 End: 03-07-2018 Patient encounter [facility] Start: 11-06-2017 End: 11-06-2017 Emergency department patient visit JEREMY Suarez [facility] Start: 06-14-2017 End: 06-16-2017 Evaluation and management of inpatient [facility] Start: 01-13-2016 End: 01-13-2016 Refill Kevin Rodriguez MD Work Phone: Pulmonary Medicine Comment on above: Refill Request Start: 05-24-2015 End: 05-24-2015 REFILL - MYCHART Garcia Luna Work Phone: Gastroenterology Comment on above: RE: Medication Renew al Request Procedures Date Procedure Procedure Detail Performing Clinician Start: 01-14-2024 Plain x-ray of pelvi s and lower extremity Start: 01-14-2024 Plain chest X-ray Start: 01-14-2024 CT of head without contrast Start: 01-16-2023 Influenza Types A,B Direct FA (KAYKAY) Start: 01-16-2023 Respiratory syncytia l virus antigen assay Start: 01-16-2023 Plain chest X-ray Start: 04-26-2016 End: 04-30-2016 Demo&/eval of pt utiliz aersl gen/neb/inhlr/ip Fernando Lundy Work Phone: Start: 04-26-2016 End: 10-26-2016 Follow Up Appt 3 months Fernando Lundy Work Phone: Start: 04-26-2016 End: 10-26-2016 Pulmonary Function Test - complete Fernando Lundy Work Phone: Start: 04-26-2016 End: 10-26-2016 Pulmonary stress test/simple Fernando Lundy Work Phone: Start: 10-09-2011 End: 10-10-2011 Ecg routine ecg w/least 12 lds w/i&r Dragan Zee MD Carpal tunnel syndro me (disorder) SHEILA MICHAEL MD Comment on above: bilateral section SHEILA MICHAEL MD Cholecystectomy DR MARTINA DE LEON MD Foot structure (body structure) SHEILA MICHAEL MD Comment on above: left - ORIF H/O: surgery History of RVAT with right lung biopsy, 2008 COTY OLSEN PLUMBER'S ASSISTANT-LOOM STOP CHECKER H/O: surgery S/P hysterectomy with oophorectomy, age 26 NIDAL KATIESoniaFATOUMATA DO Hysterectomy DR MARTINA COATES MD Specimen from lung obtained by biopsy (specimen) SHEILA MICHAEL MD Comment on above: right Plan of Treatment Date Care Activity Detail Author Start: 01-14-2024 [facility] Start: 01-14-2024 Emergency department visit low/moder severity EMERGENCY DEPT VISIT SF MDM [facility] Start: 01-16-2023 Sars-cov-2 detection by dna/rna SARS-COV-2 COVID-19 AMP PRB [facility] Start: 06-04-2022 Procedure [facility] Work Phone: Start: 07-05-2021 Influenza vaccination INFLUENZA (Season Ended) [facility] Start: 07-06-2017 DIABETES SCREEN DIABETES SCREEN [facility] Start: 08-01-2016 End: 08-01-2016 Chest x-ray X-Ray, Chest, PA & Lateral [facility] Work Phone: Start: 08-01-2016 End: 08-01-2016 [facility] Work Phone: Start: 08-01-2016 End: 08-01-2016 Follow Up Appt 3 months Follow Up Appt 3 months [facility] Work Phone: Start: 08-01-2016 End: 08-01-2016 Pulmonary Function Test - complete Pulmonary Function Test - complete [facility] Work Phone: Start: 08-01-2016 End: 08-01-2016 Pulmonary stress test/simple Pulmonary stress testing; simple (eg, 6-minute walk) [facility] Phone: Start: 04-26-2016 End: 10-26-2016 Follow Up Appt 3 months Follow Up Appt 3 months [facility] Work Phone: Start: 04-26-2016 End: 10-26-2016 Pulmonary Function Test - complete Pulmonary Function Test - complete [facility] Work Phone: Start: 04-26-2016 End: 10-26-2016 Pulmonary stress test/simple Pulmonary stress testing; simple (eg, 6-minute walk) [facility] Phone: Start: 2011 Screening for malignant neoplasm of colon [facility] Start: 2011 SHINGRIX VACCINE (1 of 2) SHINGRIX VACCINE (1 of 2) [facility] Start: 11-26-2011 End: 10-15-2011 *Hepatic Function Panel *Hepatic Function Panel [facility] Work Phone: Start: 11-26-2011 End: 10-15-2011 Lipid 1996 panel *Lipid Profile [facility] Work Phone: Start: 10-09-2011 End: 10-09-2011 *Hepatic Function Panel *Hepatic Function Panel [facility] Phone: Start: 10-09-2011 End: 10-09-2011 aPTT Coag time (PPP) *PTT-Partial Thromboplastin Time [facility] Phone: Start: 10-09-2011 End: 10-10-2011 Ecg routine ecg w/least 12 lds w/i&r EKG (In office) [facility] Phone: Start: 10-09-2011 End: 10-10-2011 Echocardiography Echocardiogram (complete) [facility] Phone: Start: 10-09-2011 End: 10-09-2011 Follow Up Appt 6 weeks Follow Up Appt 6 weeks [facility] Phone: Start: 10-09-2011 End: 10-09-2011 INR Coag RelTime (PPP) *PT/INR [facility] Phone: Start: 10-09-2011 End: 10-12-2011 Left Heart Cath Left Heart Cath [facility] Phone: Start: 10-09-2011 End: 10-09-2011 Lipid 1996 panel *Lipid Profile [facility] Phone: Start: 2006 LIPID SCREEN LIPID SCREEN [facility] Start: 2001 Mammography MAMMOGRAM [facility] Start: 1991 HPV TESTING HPV TESTING [facility] Start: 1982 PAP TESTING PAP TESTING [facility] Start: 1980 Urine microalbumin profile DTAP,TDAP,TD (1 - Tdap) [facility] Start: 1979 HIV SCREENING HIV SCREENING [facility] Start: 1973 Adult depression screening assessment DEPRESSION SCREENING [facility] Patient Education [facility] Work Phone: Patient referral [facility] Work Phone: Procedure [facility] Work Phone: Immunizations Immunization Date Immunization Notes Care Provider Fa cility 08-26-2024 Pneumococcal conjuga te PCV20, polysaccharide [id number] conjugate, adjuvant, PF; Translations: [Prevnar 20] JULIO CESAR JACOBS DO [facility] 08-26-2024 influenza, injectabl e, quadrivalent, contains preservative; Translations: [Fluarix PF Prefilled Syringe ] JULIO CESAR JACOBS DO [facility] 09-14-2021 influenza virus vacc ine, unspecified formulation COTY SEFFENS PLUMBER'S ASSISTANT-LOOM STOP CHECKER [facility] 09-14-2021 SARS-CoV-2 (COVID-19 ) mRNA-1273 vaccine COTY SEFFENS PLUMBER'S ASSISTANT-LOOM STOP CHECKER [facility] 05-12-2021 SARS-CoV-2 (COVID-19 ) mRNA-1273 vaccine COTY SEFFENS PLUMBER'S ASSISTANT-LOOM STOP CHECKER [facility] 04-12-2021 SARS-CoV-2 (COVID-19 ) mRNA-1273 vaccine COTY SEFFENS PLUMBER'S ASSISTANT-LOOM STOP CHECKER [facility] 06-20-2020 influenza virus vacc ine, unspecified formulation COTY SEFFENS PLUMBER'S ASSISTANT-LOOM STOP CHECKER [facility] 08-24-2019 influenza virus vacc ine, unspecified formulation COTY SEFFENS PLUMBER'S ASSISTANT-LOOM STOP CHECKER [facility] 08-05-2018 influenza virus vacc ine, unspecified formulation OCTY SEFFENS PLUMBER'S ASSISTANT-LOOM STOP CHECKER [facility] 07-11-2017 influenza virus vacc ine, unspecified formulation COTY SEFFENS PLUMBER'S ASSISTANT-LOOM STOP CHECKER [facility] Payers Date Payer Category Payer Private Health Insurance [id number] 2023 Medicaid [id number] 2023 Self-pay [id number] 2016 Private Health Insurance [id number] 2016 Unknown [id number] 2014 Medicaid [facility] MEDICAID [facility] [employer] MEDICAID [id number] 2014-Present Medicaid [id number] 1961 Unknown [id number] 2.16.840.1.015917.3.579.2. 627 1961 Unknown [id number] 2.16.840.1.579134.3.579.2. 62 1961 Unknown [id number] 2.16.840.1.732811.3.579.2. 627 1961 Unknown [id number] 2.16.840.1.151114.3.579.2. 627 1961 Unknown [id number] 2.16.840.1.949957.3.579.2. 627 1961 Unknown [id number] 2.16.840.1.262742.3.579.2. 62 1961 Unknown [id number] 2.16.840.1.350630.3.579.2. 627 1961 Unknown [id number] 2.16.840.1.631429.3.579.2. 627 1961 Unknown [id number] 2.16.840.1.477935.3.579.2. 627 1961 Unknown [id number] 2.16.840.1.374101.3.579.2. 627 1961 Unknown [id number] 2.16.840.1.573994.3.579.2. 627 1961 Unknown [id number] 2.16.840.1.904973.3.579.2. 627 1961 Unknown [id number] 2.16.840.1.798400.3.579.2. 1961 Unknown [id number] 2.16.840.1.236919.3.579.2. 1961 Unknown [id number] 2..840.1.034130.3.579.2. 1961 Unknown [id number] 2.840.1.741037.3.579.2. 1961 Unknown [id number] 2.840.1.778993.3.579.2. 1961 Unknown [id number] 2.16840.1.637451.3.579.2. 62 1961 Unknown [id number] 2..840.1.438443.3.579.2. 1961 Unknown [id number] 2.16840.1.729083.3.579.2. 627 Unknown [id number] 2.16.840.1.238918.3.579.2. 462 Unknown [id number] 2.16.840.1.269063.3.579.2. 462 Unknown [id number] 2.16.840.1.842395.3.579.2. 462 Unknown [id number] 2.16.840.1.356780.3.579.2. 462 Unknown [id number] 2.16.840.1.067036.3.579.2. 462 Unknown [id number] 2.16.840.1.660818.3.579.2. 462 Unknown [id number] 2.16.840.1.638311.3.579.2. 462 Unknown [id number] 2.16.840.1.468733.3.579.2. 462 Unknown [id number] 2.16.840.1.781123.3.579.2. 462 Unknown [id number] 2.16840.1.392997.3.579.2. 462 Social History Date Type Detail Facility Start: 07-06-1966 Tobacco smoking stat us NHIS Current every day smoker [facility] Start: 07-06-1966 History of tobacco use Smoker [facility] Start: 12-17-2014 Cigarettes smoked cu rrent (pack per day) - Reported [facility] Start: 12-17-2014 Tobacco use and exposure Never used [facility] Start: 12-17-2014 Alcohol intake Current non-dr ethanol quality leader of alcohol (finding) [facility] Start: 12-17-2014 Tobacco Comment Smoking 1ppd 12/17/14. TO [facility] Start: 1960 Sex Assigned At Not on file C [facility] Start: 12-15-2021 End: 02-05-2024 Tobacco smoking status AKIS Unknown if ever smoked [facility] Start: 1960 Sex Assigned At Female W [facility] Start: 04-05-2019 End: 06-01-2024 Tobacco smoking status Heavy tobacco smoker (finding) [facility] Sexual Orientation [facility] osabby [facility] Start: 09-29-2019 Sex Female (finding) [facility] Medical Equipment Procedure Code Equipment Code Equipment Origin al Text Equipment Identifier Dates See Instructions , Generic store-brand glucometer lancets. Check fasting AM glucose 2-7 days weekly., # 1 EA, 0 Refill(s), Pharmacy: [facility], [facility], 169.9, cm, 03/16/25 16:10:00 EDT, Height, 86.1, kg, 03/16/25 16:10:00 EDT, Dosing Weight Start: 03-16-2025 See Instructions , Generic store-brand glucometer test strips. Check fasting AM glucose 2-7 days weekly., # 100 EA, 0 Refill(s), Pharmacy: [facility], [facility], 169.9, cm, 03/16/25 16:10:00 EDT, Height, 86.1, kg, 03/16/25 16:10:00 EDT, Dosing Weight Start: 03-16-2025 Functional Status Date Assessment Result Facility 03-05-2025 Functional Status Room check per formed, Chair alert pad on [facility] 03-05-2025 Functional Status Done [facility] 03-05-2025 Functional Status [facility] 03-05-2025 Functional Status [facility] 03-04-2025 Functional Status [facility] 03-04-2025 Functional Status bilateral knee high alberto lied/on [facility] 03-04-2025 Functional Status [facility] 03-04-2025 Functional Status 7am-3pm [facility] 03-04-2025 Functional Status Sleeping quiet ly with easy respirations [facility] 03-04-2025 Functional Status [facility] 06-01-2024 Functional Status Independent [facility] 06-01-2024 Functional Status Resting [facility] 05-26-2024 Functional Status Resting [facility] 05-31-2023 Functional Status Room check performed [facility] 05-31-2023 Functional Status Breakfast Percent 50 [facility] 05-31-2023 Functional Status [facility] 05-31-2023 Functional Status [facility] 05-30-2023 Functional Status [facility] 05-30-2023 Functional Status Done [facility] 05-30-2023 Functional Status Lunch Percent 0 [facility] 05-30-2023 Functional Status Pre-restraint Alternatives Attempted Safe Expert at bedside [facility] 05-30-2023 Functional Status [facility] 05-29-2023 Functional Status Hospital bed [facility] 05-29-2023 Functional Status [facility] 05-29-2023 Functional Status [facility] 05-29-2023 Functional Status Oral Care Refused [facility] 05-29-2023 Functional Status [facility] 05-28-2023 Functional Status Sensory Deficits None A [facility] 03-14-2023 Functional Status Independent [facility] 03-14-2023 Functional Status Standard Safet y ID band on, Call device within reach, Bed in low position, Wheels locked, Upper/Half-Length side-rails up, Bedside Cart Locked, Safety level maintained [facility] Mental Status Date Assessment Result Facility 03-05-2025 Mental Status Oriented x 4 [facility] 03-05-2025 Mental Status [facility] 03-05-2025 Mental Status [facility] 03-04-2025 Mental Status Orientation Disoriented x 4 [facility] 06-01-2024 Mental Status Orientation Oriented x 4 [facility] 06-01-2024 Mental Status [facility] 05-26-2024 Mental Status Oriented x 4 [facility] 05-31-2023 Mental Status Oriented x 4 [facility] 05-31-2023 Mental Status [facility] 05-30-2023 Mental Status [facility] 05-30-2023 Mental Status [facility] 05-30-2023 Mental Status [facility] 03-14-2023 Mental Status Orientation Oriented x 4 [facility] 03-14-2023 Mental Status [facility] Clinical Notes 03-14-2023 to 03-09-2025 Note Date & Type Note Facility 03-09-2025 Note . MICRO - Microbiology PROCEDURE: Blood Culture (bacterial) [*1] SOURCE: Blood BODY SITE: COLLECTED DATE/TIME: 03/04/2025 03:25 EDT RECEIVED DATE/TIME: 03/04/2025 15:20 EDT START DATE/TIME: 03/04/2025 15:20 EDT FREE TEXT SOURCE: FINAL REPORTS Final Report [] Verified Date/Time/Personnel: 03/09/2025 15:59 EDT Blood Culture: No Growth at 5 days. PRELIMINARY REPORTS Preliminary Report [] Verified Date/Time/Personnel: 03/04/2025 15:59 EDT Culture has been received in lab and is no growth to date. Routine cultures are held for 5 days. Performing Locations *1: This test was performed at: [address], [facility] , [facility] 03-09-2025 Note . MICRO - Microbiology PROCEDURE: Blood Culture (bacterial) [*1] SOURCE: Blood BODY SITE: COLLECTED DATE/TIME: 03/04/2025 03:25 EDT RECEIVED DATE/TIME: 03/04/2025 15:20 EDT START DATE/TIME: 03/04/2025 15:20 EDT FREE TEXT SOURCE: FINAL REPORTS Final Report [] Verified Date/Time/Personnel: 03/09/2025 15:59 EDT Blood Culture: No Growth at 5 days. PRELIMINARY REPORTS Preliminary Report [] Verified Date/Time/Personnel: 03/04/2025 15:59 EDT Culture has been received in lab and is no growth to date. Routine cultures are held for 5 days. Performing Locations *1: This test was performed at: [address], [facility] , [facility] 03-09-2025 Note . MICRO - Microbiology PROCEDURE: Blood Culture (bacterial) [*1] SOURCE: Blood BODY SITE: COLLECTED DATE/TIME: 03/04/2025 12:15 EDT RECEIVED DATE/TIME: 03/04/2025 13:33 EDT START DATE/TIME: 03/04/2025 13:33 EDT FREE TEXT SOURCE: FINAL REPORTS Final Report [] Verified Date/Time/Personnel: 03/09/2025 13:59 EDT Blood Culture: No Growth at 5 days. PRELIMINARY REPORTS Preliminary Report [] Verified Date/Time/Personnel: 03/04/2025 14:59 EDT Culture has been received in lab and is no growth to date. Routine cultures are held for 5 days. Performing Locations *1: This test was performed at: [address], [id number] , [facility] 03-09-2025 Note . MICRO - Microbiology PROCEDURE: Blood Culture (bacterial) [*1] SOURCE: Blood BODY SITE: COLLECTED DATE/TIME: 03/04/2025 12:15 EDT RECEIVED DATE/TIME: 03/04/2025 13:33 EDT START DATE/TIME: 03/04/2025 13:33 EDT FREE TEXT SOURCE: peds bottle FINAL REPORTS Final Report [] Verified Date/Time/Personnel: 03/09/2025 13:59 EDT Blood Culture: No Growth at 5 days. PRELIMINARY REPORTS Preliminary Report [] Verified Date/Time/Personnel: 03/04/2025 14:59 EDT Culture has been received in lab and is no growth to date. Routine cultures are held for 5 days. Performing Locations *1: This test was performed at: [address], [id number] , [facility] 03-05-2025 Discharge summary Date of Service 03/05/2025 Discharge Diagnosis Metabolic encephalopathy, patient left AGAINST MEDICAL ADVICE Hospital Course Patient was admitted in 03/04/2025 after presenting emergency department at [facility] for encephalopathy. Per EMS, family called after they found the patient confused and covered in stool. Workup was completed [facility] emergency department, CT of the head showed no acute intracranial abnormality, CTA of the head was unremarkable, CTA of the neck showed focal occlusion of the proximal left subclavian. Toxicology was negative on arrival and lab work was unremarkable. She was admitted to SICU as MICU overflow for close monitoring. For brief period time she required a sitter due to agitation and impulsiveness. On 03/05 was noted that her potassium was 2.9 which was repleted, her mental status improved significantly and she was alert and oriented x 3 when seen by the [facility] ICU physician Dr. Castro. She stated that she tripped over her cat causing her to fall and that is how she ended up in the hospital. She denied taking any additional medications or illegal substances or ingesting anything toxic. She was not able to give us any additional information leading up to the events leading to her encephalopathy. Due to the fact that her cause of acute encephalopathy is still unknown and differentials include potentially life-threatening diseases she does require additional monitoring in the hospital, the patient was informed of this information and states that she understands but she is willing to undertake the risk of leaving the hospital AGAINST MEDICAL ADVICE. After receiving additional electrolyte replacements, patient decided to leave AGAINST MEDICAL ADVICE. Physical Exam General: Alert and oriented x 3 Head: Normocephalic, atraumatic ENT: PERRLA, eyes: Sclera nonicteric, oral: Mucous membranes moist. Edentulous Neck: Supple, no JVD Cardiac: Regular rate and rhythm, normal S1-S2, no murmur, rubs, or gallops Respiratory: Lungs clear, respirations easy Abdomen: Soft, nontender, normoactive bowel sounds Musculoskeletal: No joint deformities, no muscle tenderness Extremities: 2+ pulses, no pedal edema, bottom both feet have significant calluses with brown dried areas Neurological: Alert, appears confused only able answer yes to all questions, no focal deficits Skin: Warm and dry, no rash Allergies NKA Procedures None Consults No qualifying data available. Imaging Results and Diagnostics (03/04/2025 06:[address] Angiography Head w/ Contrast) IMPRESSION: Unremarkable CTA of the head. 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 Immediate reconstitution. This is been unchanged since at least 2022. No significant stenosis of the carotid arteries. Question very small penetrating ulceration of the proximal left common carotid artery. Thyroid nodules. Follow-up with nonemergent thyroid ultrasound is recommended. [2] (03/04/2025 11:58 EDT XR Chest 1 View) IMPRESSION: Mild left atelectasis; mild left artifact versus faint hazy airspace disease. [3] Objective Vitals and Measurements T: 37 C (Oral) TMIN: 36.6 C (Oral) TMAX: 37 C (Oral) HR: 94 (Monitored) RR: 18 BP: 142/80 SpO2: 93% HT: 170 cm WT: 90.2 kg BMI: 31.21 Weight Dosing Weight: 90.2 kg (03/05/25) Code Status No qualifying data available. Admission Date 03/04/2025 Discharge Date 03/05/2025 Patient Instructions Patient left AGAINST MEDICAL ADVICE Medications Unchanged albuterol (Ventolin HFA MDI (90 mcg/inh) inhalation aerosol)2 puff(s) by inhalation every 4 hours as needed as needed for wheezing. Refills: 1. albuterol-ipratropium (albuterol-ipratropium 2.5 mg-0.5 mg/3 mL inhalation solution)3 Milliliter by inhalation every 4 hours as needed as needed for shortness of breath or wheezing. Refills: 1. amitriptyline (amitriptyline 100 mg oral tablet)1 tab(s) by mouth daily at bedtime. Refills: 1. baclofen (baclofen 10 mg oral tablet)1 tab(s) by mouth daily at bedtime. Refills: 0. buprenorphine-naloxone (Suboxone 2 mg-0.5 mg sublingual film)1 Each under the tongue three (3) times a day. cloNIDine (cloNIDine 0.1 mg oral tablet)1 tab(s) by mouth three (3) times a day as needed hypertension or anxiety. Take if BP > 140 systolic or > 90 diastolic, or 30-60 min before stressful events for anxiety / BP reasons. Consider taking QHS. Refills: 1. diclofenac topical (diclofenac 1% topical gel)1 application Topical four (4) times a day. Refills: 2. DME (DME MISCellaneous)Knee-high compression stockings - Medium (15-20 mmHg)... Refills: 0. DME (DME MISCellaneous)Knee-high compression stockings - Mild (8-15 mmHg). Refills: 0. DME (DME MISCellaneous)Nebulizer tubing and medicine cup. Refills: 1. docusate (docusate calcium 240 mg oral capsule)1 cap by mouth two (2) times a day. Refills: 1. DULoxetine (Cymbalta 60 mg oral delayed release capsule)1 cap by mouth once a day. Refills: 0. fluticasone-salmeterol (Advair Diskus 100 mcg-50 mcg/inh inhalation powder)1 puff(s) by inhalation two (2) times a day. Refills: 1. gabapentin (gabapentin 600 mg oral tablet)2 tab(s) by mouth three (3) times a day for 30 Days. IN LIEU OF PCP ABSENCE. Refills: 0. guaiFENesin (Mucinex 600 mg oral tablet, extended release)1 tab(s) by mouth every 12 hours as needed chest congestion. Refills: 3. hydrOXYzine (hydrOXYzine hydrochloride 25 mg oral tablet)1 tab(s) by mouth two (2) times a day as needed anxiety. Refills: 2. lurasidone (lurasidone 40 mg oral tablet)1 tab(s) by mouth once a day. Refills: 0. meloxicam (Mobic 7.5 mg oral tablet)1 tab(s) by mouth once a day. can increase to 15mg if needed. Refills: 0. omeprazole (omeprazole 20 mg oral delayed release capsule)1 cap by mouth once a day. for fdc NSAID protection. Refills: 0. polyethylene glycol 3350 (MiraLax oral powder for reconstitution)17 gram(s) orally every hour until stool. Dissolve in water or juice. Refills: 0. Follow Up Patient left AMA prior to leaving we suggested follow-up with PCP. Follow Up Appointments No qualifying data available. Follow Up Labs/Studies Discharge Labs No Follow-up Labs Discharge Studies No Follow-up Studies Discharge Diet No qualifying data available. Discharge Activity No qualifying data available. Condition on Discharge Fair Readmission Risk/Palliative Score No qualifying data available. Discharge Disposition Patient left AMA to home [1] CT Angiography Head w/ Contrast; JOSE DANIEL HUTCHINSON MD 03/04/2025 06:44 EDT [2] CT Angiography Neck w/ Contrast; JOSE DANIEL HUTCHINSON MD 03/04/2025 06:45 EDT [3] XR Chest 1 View; GARCIA NIELSON MD 03/04/2025 11:58 EDT Digitally Signed by SHAR CARBAJAL on 03/05/2025 12:56 PM Digitally Signed by LILLY CASTRO MD on 03/05/2025 01:12 PM [facility] 03-05-2025 Note Date of Service 03/05/2025 Chief Complaint Encephalopathy Subjective Vero Ngo is a 64-year-old female with past medical history of COPD on home O2 3-1/2 to 4 L, history of Vicodin abuse has been on Suboxone for 21 years, ex heavy drinker but has been sober for 25 years, anxiety, depression, 1 pack/day smoker since her teenage years, recently found to have a thyroid nodule that she is post be setting up an outpatient thyroid biopsy. Patient does take Suboxone, amitriptyline, gabapentin, hydroxyzine, duloxetine, as needed clonidine for blood pressure control. Family called EMS after they found the patient acting very strange. She had a bowel movement and had drug the stool across the room. They stated she was just not acting right and walking [id number] in the room and would only give yes or no answers and was mainly just moaning. She was taken to [facility] emergency room where she underwent CT of the head that showed no acute intracranial abnormality. CTA of the head which was unremarkable. 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 Questionable very small penetrating ulceration of the proximal left common carotid artery. Toxicology screen was negative. Rest of her lab work was unremarkable. The family told the emergency room physician they were concerned that maybe she took too many of some of her medications. 24-hour summary: Patient became agitated, yelling screaming at staff. She was given 1 dose of 2.5 mg p.o. Vistaril with improvement in agitation. She is now alert and oriented x 3, taking appropriate oral intake. She states that she fell and hit her head prior to coming in, she also was not feeling well with mild nausea and diarrhea along with a cough producing green sputum. Objective Vitals and Measurements T: 37 C (Oral) TMIN: 36.5 C (Axillary) TMAX: 37 C (Oral) HR: 102 (Monitored) RR: 15 BP: 161/143 SpO2: 97% HT: 170 cm WT: 90.2 kg BMI: 31.21 Intake and Output 7AM Yesterday to 7AM Today Intake and Output (Last 24 hours) Intake Administration Information 1463.75 Oral Intake 150.00 Output Urinary Catheter Output: 1325.00 Stool Count 0.00 Emesis Count 0.00 Total Summary Total Intake 1613.75 Total Output 1325.00 Fluid Balance 288.75 Physical Exam General: Alert and oriented x 3 Head: Normocephalic, atraumatic ENT: PERRLA, eyes: Sclera nonicteric, oral: Mucous membranes moist. Edentulous Neck: Supple, no JVD Cardiac: Regular rate and rhythm, normal S1-S2, no murmur, rubs, or gallops Respiratory: Lungs clear, respirations easy Abdomen: Soft, nontender, normoactive bowel sounds Musculoskeletal: No joint deformities, no muscle tenderness Extremities: 2+ pulses, no pedal edema, bottom both feet have significant calluses with brown dried areas Neurological: Alert, appears confused only able answer yes to all questions, no focal deficits Skin: Warm and dry, no rash Weight Dosing Weight: 90.2 kg (03/05/25) Medications Medications (12) Active Scheduled: (7) albuterol - ipratropium 2.5 mg-0.5 mg/3 mL Inhal Thao UD 3 mL, Inhalation, QIDRT buprenorphine-naloxone 8 mg-2 mg SL film 1 EA, Sublingual, BID heparin 5,000 units/mL (1 mL) vial 5,000 unit(s) 1 mL, Subcutaneous, q8h magnesium sulfate PMX 2 gram(s) 50 mL, IV Piggyback, Once pantoprazole 40 mg VIAL 40 mg, IV Push, qDayAC potassium acetate 40 mEq 20 mL, IV Piggyback, Once potassium bicarbonate-citric acid 20 mEq EFF tablet 40 mEq 2 tab(s), Oral, Once Continuous: (1) D5/LR 1,000 mL 1,000 mL, Intravenous, 75 mL/hr PRN: (4) dextrose 50% Solution Disp syringe 50 mL 25 gram(s) 50 mL, IV Push, AsDirected hydralazine 20 mg/mL (1mL) vial 10 mg 0.5 mL, IV Push, q2h labetalol 5 mg/mL (20mL) MDV 10 mg 2 mL, IV Push, q4hr ondansetron 2 mg/ 1 mL 2 mL INJ 4 mg 2 mL, IV Push, q4h Lab Results 03/05 05:00 Glucose Level: 115 Sodium Level: 144 Potassium Level: 2.9 L BUN: 8.0 Creatinine Lvl (s): 0.60 EKG Electrocardiogram (EKG) - Ordered -- 03/05/25 6:00:00 EDT Assessment/Plan Assessment 1. Encephalopathy. Unclear source. 2. Concern for polypharmacy overdose 3. COPD on home O2 3 and half to 4 L. Not in exacerbation 4. History of Vicodin abuse. Has been on Suboxone for 21 years. 5. Recent finding of thyroid nodule supposed to have a outpatient thyroid biopsy. 6. Underlying history of anxiety, depression, smoker, ex EtOH abuse post been sober for 25 years 7. Code Status Plan 1. Cultures pending. 2. TSH and free T4 within normal limits along with CPK. 3. Continue home dose of Suboxone. Reinitiate duloxetine, amitriptyline and at bedtime baclofen. 4. DuoNebs 4 times daily 5. Discontinue IV fluids, patient is having appropriate intake 6. Advance diet to regular diet. 7. Change Protonix to home omeprazole 20 mg p.o. daily. 8. Heparin 5000 units subcutaneously every 8 hours for DVT prophylaxis 9. Will use as needed Apresoline and beta-blockade to maintain systolic blood pressure less than 160 10. Patient is full code 11. Electrolytes as needed 12. CBC, BMP, magnesium and phosphorus in the morning. 13. Stable for transfer out of the intensive care unit with no further follow-up needed from pulmonary. 14. Discontinue Anton catheter. This is a split/shared visit with Dr. Castro, please see addendum to follow. Digitally Signed by SHAR CARBAJAL on 03/05/2025 07:27 AM [facility] 03-05-2025 Note Date of Service 03/05/2025 Chief Complaint Encephalopathy Subjective Veroluther Ngo is a 64-year-old female with past medical history of COPD on home O2 3-1/2 to 4 L, history of Vicodin abuse has been on Suboxone for 21 years, ex heavy drinker but has been sober for 25 years, anxiety, depression, 1 pack/day smoker since her teenage years, recently found to have a thyroid nodule that she is post be setting up an outpatient thyroid biopsy. Patient does take Suboxone, amitriptyline, gabapentin, hydroxyzine, duloxetine, as needed clonidine for blood pressure control. Family called EMS after they found the patient acting very strange. She had a bowel movement and had drug the stool across the room. They stated she was just not acting right and walking [id number] in the room and would only give yes or no answers and was mainly just moaning. She was taken to [facility] emergency room where she underwent CT of the head that showed no acute intracranial abnormality. CTA of the head which was unremarkable. 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 Questionable very small penetrating ulceration of the proximal left common carotid artery. Toxicology screen was negative. Rest of her lab work was unremarkable. The family told the emergency room physician they were concerned that maybe she took too many of some of her medications. 24-hour summary: Patient became agitated, yelling screaming at staff. She was given 1 dose of 2.5 mg p.o. Vistaril with improvement in agitation. She is now alert and oriented x 3, taking appropriate oral intake. She states that she fell and hit her head prior to coming in, she also was not feeling well with mild nausea and diarrhea along with a cough producing green sputum. Objective Vitals and Measurements T: 37 C (Oral) TMIN: 36.5 C (Axillary) TMAX: 37 C (Oral) HR: 102 (Monitored) RR: 15 BP: 161/143 SpO2: 97% HT: 170 cm WT: 90.2 kg BMI: 31.21 Intake and Output 7AM Yesterday to 7AM Today Intake and Output (Last 24 hours) Intake Administration Information 1463.75 Oral Intake 150.00 Output Urinary Catheter Output: 1325.00 Stool Count 0.00 Emesis Count 0.00 Total Summary Total Intake 1613.75 Total Output 1325.00 Fluid Balance 288.75 Physical Exam General: Alert and oriented x 3 Head: Normocephalic, atraumatic ENT: PERRLA, eyes: Sclera nonicteric, oral: Mucous membranes moist. Edentulous Neck: Supple, no JVD Cardiac: Regular rate and rhythm, normal S1-S2, no murmur, rubs, or gallops Respiratory: Lungs clear, respirations easy Abdomen: Soft, nontender, normoactive bowel sounds Musculoskeletal: No joint deformities, no muscle tenderness Extremities: 2+ pulses, no pedal edema, bottom both feet have significant calluses with brown dried areas Neurological: Alert, appears confused only able answer yes to all questions, no focal deficits Skin: Warm and dry, no rash Weight Dosing Weight: 90.2 kg (03/05/25) Medications Medications (12) Active Scheduled: (7) albuterol - ipratropium 2.5 mg-0.5 mg/3 mL Inhal Thao UD 3 mL, Inhalation, QIDRT buprenorphine-naloxone 8 mg-2 mg SL film 1 EA, Sublingual, BID heparin 5,000 units/mL (1 mL) vial 5,000 unit(s) 1 mL, Subcutaneous, q8h magnesium sulfate PMX 2 gram(s) 50 mL, IV Piggyback, Once pantoprazole 40 mg VIAL 40 mg, IV Push, qDayAC potassium acetate 40 mEq 20 mL, IV Piggyback, Once potassium bicarbonate-citric acid 20 mEq EFF tablet 40 mEq 2 tab(s), Oral, Once Continuous: (1) D5/LR 1,000 mL 1,000 mL, Intravenous, 75 mL/hr PRN: (4) dextrose 50% Solution Disp syringe 50 mL 25 gram(s) 50 mL, IV Push, AsDirected hydralazine 20 mg/mL (1mL) vial 10 mg 0.5 mL, IV Push, q2h labetalol 5 mg/mL (20mL) MDV 10 mg 2 mL, IV Push, q4hr ondansetron 2 mg/ 1 mL 2 mL INJ 4 mg 2 mL, IV Push, q4h Lab Results 03/05 05:00 Glucose Level: 115 Sodium Level: 144 Potassium Level: 2.9 L BUN: 8.0 Creatinine Lvl (s): 0.60 EKG Electrocardiogram (EKG) - Ordered -- 03/05/25 6:00:00 EDT Assessment/Plan Assessment 1. Encephalopathy. Unclear source. 2. Concern for polypharmacy overdose 3. COPD on home O2 3 and half to 4 L. Not in exacerbation 4. History of Vicodin abuse. Has been on Suboxone for 21 years. 5. Recent finding of thyroid nodule supposed to have a outpatient thyroid biopsy. 6. Underlying history of anxiety, depression, smoker, ex EtOH abuse post been sober for 25 years 7. Code Status Plan 1. Cultures pending. 2. TSH and free T4 within normal limits along with CPK. 3. Continue home dose of Suboxone. Reinitiate duloxetine, amitriptyline and at bedtime baclofen. 4. DuoNebs 4 times daily 5. Discontinue IV fluids, patient is having appropriate intake 6. Advance diet to regular diet. 7. Change Protonix to home omeprazole 20 mg p.o. daily. 8. Heparin 5000 units subcutaneously every 8 hours for DVT prophylaxis 9. Will use as needed Apresoline and beta-blockade to maintain systolic blood pressure less than 160 10. Patient is full code 11. Electrolytes as needed 12. CBC, BMP, magnesium and phosphorus in the morning. 13. Stable for transfer out of the intensive care unit with no further follow-up needed from pulmonary. 14. Discontinue Anton catheter. This is a split/shared visit with Dr. Castro, please see addendum to follow. Digitally Signed by SHAR CARBAJAL APRN-LOOM STOP CHECKER on 03/05/2025 07:27 AM [facility] 03-04-2025 Evaluation + Plan note Extrac mary from: Title:History and Physical Author:KAYKAY JAQUEZ APRN-LOOM STOP CHECKER Date:03/04/25 Assessment 1. Encephalopathy. Unclear source. 2. Concern for polypharmacy overdose 3. COPD on home O2 3 and half to 4 L. Not in exacerbation 4. History of Vicodin abuse. Has been on Suboxone for 21 years. 5. Recent finding of thyroid nodule supposed to have a outpatient thyroid biopsy. 6. Underlying history of anxiety, depression, smoker,, ex EtOH abuse post been sober for 25 years Plan 1. Send blood cultures, urinalysis, portable chest x-ray now 2. Send lactic acid, CPK, TSH, free T4 now could be concern patient has abnormal thyroid test could be leading to her acute confusion and agitation 3. Resume home dose of Suboxone. Will hold gabapentin, amitriptyline, duloxetine, hydroxyzine for now 4. DuoNebs 4 times daily 5. D5 LR at 75 mL/h 6. N.p.o. for now. Perform bedside swallow eval and advance diet as tolerated if she passes. 7. Protonix for GI prophylaxis 8. Heparin 5000 units subcutaneously every 8 hours for DVT prophylaxis 9. Will try to talk to family again to see if they can look at her pill bottles to see if she potentially took extra doses of any of her medications 10. Will use as needed Apresoline and beta-blockade to maintain systolic blood pressure less than 160 Addendum by MARSHALL IGNACIO MD on March 04, 2025 11:45:18 EDT Attending attestation: This is a split/shared visit with the nurse practitioner. I have spent greater than 50% of the time and have independently taken a history reviewed labs imaging and discussed the case with the nurse practitioner. Agree with findings and plan as detailed above. 64-year-old female past medical history as above was found by family acting strangely and moaning so brought to the ER. In the emergency room there was concern for altered mental status and need for closer monitoring so she was transferred to our ICU. She is currently easily arousable will answer her name knows she is in the hospital. Following commands moving all extremities. Does not appear to be in any distress. Will investigate further for causes of encephalopathy as above. Possible medication overdose however patient is denying this. Restart Suboxone as she is on this chronically. Placed on heparin subcu for DVT prophylaxis. Hold home sedating agents. Will monitor for a few more hours and if her mentation remains stable we will transfer her to the stepdown unit 30 minutes critical care time Future Appointments Appointment Date:03/12/2025 04:00:00 PM Scheduled Provider:JULIO CESAR JACOBS DO Location:[facility] Appointment Type:PC OV TCM 30 Future Scheduled Tests Radiology* CT Low Dose Lung Cancer Screening (LDCT) 12/09/24 * MA Mammo Screening Bilateral w/ Beny 12/11/24 * BD Bone Density DEXA Axial Skeleton Adult (21 yrs or older) 01/22/25 [facility] 05-01-2025 Note* Exam Date Time Procedure Performing Provider Status 03/04/25 11:58 AM XR Chest 1 View GARCIA NIELSON MD; [facility] h (Verified) [id number] ORIGINAL HISTORY: Chest pain COMPARISON: 28 May 2023 FINDINGS: There are mild streaky airspace opacities in the lung bases. There is questionable mild hazy opacification in the left lung; this may be soft tissue artifact. Pulmonary vasculature is unremarkable in appearance. IMPRESSION: Mild left atelectasis; mild left artifact versus faint hazy airspace disease. Interpreted by: Garcia Nielson MD Preliminary Report By: Garcia Nielson MD Electronically signed By Garcia Nielson MD Dictated Date: 03/04/2025 12:09:28 PM Prelim Date: 03/04/2025 12:10:23 PM Sign Date: 03/04/2025 12:10:23 PM Ordering Provider: MOLINA JAQUEZ [id number] History and physical note Date of Service 03/04/2025 History of Present Illness Ms. Ngo is a 64-year-old female with past medical history of COPD on home O2 3-1/2 to 4 L, history of Vicodin abuse has been on Suboxone for 21 years, ex heavy drinker but has been sober for 25 years, anxiety, depression, smoker, recently found to have a thyroid nodule that she is post be setting up an outpatient thyroid biopsy. Patient does take Suboxone, amitriptyline, gabapentin, hydroxyzine, duloxetine, as needed clonidine for blood pressure control. Family called EMS after they found the patient acting very strange. She had a bowel movement and had drug the stool across the room. Theystated she was just not acting right and walking [id number] in the room and would only give yesor no answers and was mainly just moaning. She was taken to [facility] emergency room where she underwent CT of the head that showed no acute intracranial abnormality. CTA of the head which wasunremarkable. 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 Immediate reconstitution. This has been unchanged since at least 2022. Questionable very small penetrating ulceration of the proximal left common carotid artery. Toxicology screen was negative. Rest of her lab work was unremarkable. The family told the emergency room physician they were concerned that maybe she took too many of some of her medications. Upon arrival to surgical intensive care unit patient is somewhat agitated. She does follow commands moves all extremities x 4 pupils equal round reactive she mainly does just moan and scream at times. She will only say yes when asked questions. She appears very unkept. Her feet are very dirty and callused. Review of Systems Unable to obtain as patient would not answer questions Physical Exam Vitals and Measurements T: 36.5 C (Axillary) HR: 98 (Apical) RR: 16 BP: 174/89 SpO2: 92% No qualifying data available. General: Alert, restless and agitated Head: Normocephalic, atraumatic ENT: PERRLA, eyes: Sclera nonicteric, oral: Mucous membranes dry Neck: Supple, no JVD Cardiac: Regular rate and rhythm, normal S1-S2, no murmur, rubs, or gallops Respiratory: Lungs clear, respirations easy Abdomen: Soft, nontender, normoactive bowel sounds Musculoskeletal: No joint deformities, no muscle tenderness Extremities: 2+ pulses, no pedal edema, bottom both feet have significant calluses with brown driedareas Neurological: Alert, appears confused only able answer yes to all questions, no focal deficits Skin: Warm and dry, no rash Lab Results No 36 Hour Lab Data Assessment/Plan Assessment 1. Encephalopathy. Unclear source. 2. Concern for polypharmacy overdose 3. COPD on home O2 3 and half to 4 L. Not in exacerbation 4. History of Vicodin abuse. Has been on Suboxone for 21 years. 5. Recent finding of thyroid nodule supposed to have a outpatient thyroid biopsy. 6. Underlying history of anxiety, depression, smoker,, ex EtOH abuse post been sober for 25 years Plan 1. Send blood cultures, urinalysis, portable chest x-ray now 2. Send lactic acid, CPK, TSH, free T4 now could be concern patient has abnormal thyroid test couldbe leading to her acute confusion and agitation 3. Resume home dose of Suboxone. Will hold gabapentin, amitriptyline, duloxetine, hydroxyzine for now 4. DuoNebs 4 times daily 5. D5 LR at 75 mL/h 6. N.p.o. for now. Perform bedside swallow eval and advance diet as tolerated if she passes. 7. Protonix for GI prophylaxis 8. Heparin 5000 units subcutaneously every 8 hours for DVT prophylaxis 9. Will try to talk to family again to see if they can look at her pill bottles to see if she potentially took extra doses of any of her medications 10. Will use as needed Apresoline and beta-blockade to maintain systolic blood pressure less than 160 Problem List/Past Medical History Ongoing Adrenal cortical nodule COPD Fatty liver disease, nonalcoholic History of biopsies, thyroid q1yr, lymphnoids x1yr History of COVID-19, Oct 2023 History of drug use, opiates x 4 mo, cessation 2006 History of hepatitis C History of RVAT with right lung biopsy, 2008 Low back pain Low back pain with left-sided sciatica Lung interstitial disease Lung nodule, multiple Mediastinal lymphadenopathy Metabolic encephalopathy Osteopenia Osteoporosis Peripheral neuropathy Reactive hypertension S/P hysterectomy with oophorectomy, age 26 Supplemental oxygen dependent at home, 3.5-4L Thyroid nodule greater than or equal to 1.5 cm in diameter incidentally noted on imaging study Thyroid nodule, US 2023, biopsy w/ 1 year f/u 2024 Visual disorder Historical Drug abuse Mycoplasma pneumonia Procedure/Surgical History Hysterectomy Cholecystectomy Lung biopsy sample Foot section Carpal tunnel Medications Home Medications (20) Active Advair Diskus 100 mcg-50 mcg/inh inhalation powder 1 puff(s), Inhalation, BID albuterol-ipratropium 2.5 mg-0.5 mg/3 mL inhalation solution 3 mL, PRN, Inhalation, q4h amitriptyline 100 mg oral tablet 100 mg = 1 tab(s), Oral, qHS baclofen 10 mg oral tablet 10 mg = 1 tab(s), Oral, qHS cloNIDine 0.1 mg oral tablet 0.1 mg = 1 tab(s), PRN, Oral, TID Cymbalta 60 mg oral delayed release capsule 60 mg = 1 cap(s), Oral, qDay diclofenac 1% topical gel 1 alberto, Topical, QID DME MISCellaneous See Instructions DME MISCellaneous See Instructions DME MISCellaneous See Instructions docusate calcium 240 mg oral capsule 240 mg = 1 cap(s), Oral, BID gabapentin 600 mg oral tablet 1,200 mg = 2 tab(s), Oral, TID hydrOXYzine hydrochloride 25 mg oral tablet 25 mg = 1 tab(s), PRN, Oral, BID lurasidone 40 mg oral tablet 40 mg = 1 tab(s), Oral, qDay MiraLax oral powder for reconstitution See Instructions Mobic 7.5 mg oral tablet 7.5 mg = 1 tab(s), Oral, qDay Mucinex 600 mg oral tablet, extended release 600 mg = 1 tab(s), PRN, Oral, q12h omeprazole 20 mg oral delayed release capsule 20 mg = 1 cap(s), Oral, qDay Suboxone 2 mg-0.5 mg sublingual film 1 EA, Sublingual, TID Ventolin HFA MDI (90 mcg/inh) inhalation aerosol 2 puff(s), PRN, Inhalation, q4h Allergies NKA Social History Smoking Status - 04/23/2015 Current every day smoker Alcohol Use: Never., 04/22/2023 Home/Environment Domestic Concerns: None. Living situation: Home/Independent. Lives In: Single level home. Current Home Treatments Nebulizer treatments, Oxygen therapy. Professional Skilled Services or Special Community Resources None., 04/22/2023 Nutrition/Health Type of diet: Regular. Appetite Poor. Eating Difficulties None. Caffeine intake amount: half to 1 cup of coffee and 3 cokes per day., 11/30/2024 Sexual Self described orientation: Straight or heterosexual., 04/22/2023 Substance Abuse Use: Current. Type: Prescription medications, Suboxone., 04/22/2023 Use: Past. Type: Prescription medications., 04/05/2019 Tobacco Nicotine Use: 10 or more cigarettes (1/2 pack or more)/day in last 30 days. Previous treatment: Medications, Nicotine replacement. Ready to change: Yes., 06/01/2024 Family History Diabetes mellitus: Father and Sister. HTN - Hypertension: Mother. Heart disease: Mother. Health Status Family Member(s) Immunizations SARS-CoV-2 (COVID-19) mRNA-1273 vaccine: 0 unknown unit (09/14/21) SARS-CoV-2 (COVID-19) mRNA-1273 vaccine: 0.5 unknown unit (05/12/21) SARS-CoV-2 (COVID-19) mRNA-1273 vaccine: 0.5 unknown unit (04/12/21) Code Status No qualifying data available. Digitally Signed by MOLINA JAQUEZ on 03/04/2025 11:41 AM [id number] History and physical note Date of Service 03/04/2025 History of Present Illness Ms. Ngo is a 64-year-old female with past medical history of COPD on home O2 3-1/2 to 4 L, history of Vicodin abuse has been on Suboxone for 21 years, ex heavy drinker but has been sober for 25 years, anxiety, depression, smoker, recently found to have a thyroid nodule that she is post be setting up an outpatient thyroid biopsy. Patient does take Suboxone, amitriptyline, gabapentin, hydroxyzine, duloxetine, as needed clonidine for blood pressure control. Family called EMS after they found the patient acting very strange. She had a bowel movement and had drug the stool across the room. Theystated she was just not acting right and walking [id number] in the room and would only give yesor no answers and was mainly just moaning. She was taken to [facility] emergency room where she underwent CT of the head that showed no acute intracranial abnormality. CTA of the head which wasunremarkable. 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 Immediate reconstitution. This has been unchanged since at least 2022. Questionable very small penetrating ulceration of the proximal left common carotid artery. Toxicology screen was negative. Rest of her lab work was unremarkable. The family told the emergency room physician they were concerned that maybe she took too many of some of her medications. Upon arrival to surgical intensive care unit patient is somewhat agitated. She does follow commands moves all extremities x 4 pupils equal round reactive she mainly does just moan and scream at times. She will only say yes when asked questions. She appears very unkept. Her feet are very dirty and callused. Review of Systems Unable to obtain as patient would not answer questions Physical Exam Vitals and Measurements T: 36.5 C (Axillary) HR: 98 (Apical) RR: 16 BP: 174/89 SpO2: 92% No qualifying data available. General: Alert, restless and agitated Head: Normocephalic, atraumatic ENT: PERRLA, eyes: Sclera nonicteric, oral: Mucous membranes dry Neck: Supple, no JVD Cardiac: Regular rate and rhythm, normal S1-S2, no murmur, rubs, or gallops Respiratory: Lungs clear, respirations easy Abdomen: Soft, nontender, normoactive bowel sounds Musculoskeletal: No joint deformities, no muscle tenderness Extremities: 2+ pulses, no pedal edema, bottom both feet have significant calluses with brown driedareas Neurological: Alert, appears confused only able answer yes to all questions, no focal deficits Skin: Warm and dry, no rash Lab Results No 36 Hour Lab Data Assessment/Plan Assessment 1. Encephalopathy. Unclear source. 2. Concern for polypharmacy overdose 3. COPD on home O2 3 and half to 4 L. Not in exacerbation 4. History of Vicodin abuse. Has been on Suboxone for 21 years. 5. Recent finding of thyroid nodule supposed to have a outpatient thyroid biopsy. 6. Underlying history of anxiety, depression, smoker,, ex EtOH abuse post been sober for 25 years Plan 1. Send blood cultures, urinalysis, portable chest x-ray now 2. Send lactic acid, CPK, TSH, free T4 now could be concern patient has abnormal thyroid test couldbe leading to her acute confusion and agitation 3. Resume home dose of Suboxone. Will hold gabapentin, amitriptyline, duloxetine, hydroxyzine for now 4. DuoNebs 4 times daily 5. D5 LR at 75 mL/h 6. N.p.o. for now. Perform bedside swallow eval and advance diet as tolerated if she passes. 7. Protonix for GI prophylaxis 8. Heparin 5000 units subcutaneously every 8 hours for DVT prophylaxis 9. Will try to talk to family again to see if they can look at her pill bottles to see if she potentially took extra doses of any of her medications 10. Will use as needed Apresoline and beta-blockade to maintain systolic blood pressure less than 160 Problem List/Past Medical History Ongoing Adrenal cortical nodule COPD Fatty liver disease, nonalcoholic History of biopsies, thyroid q1yr, lymphnoids x1yr History of COVID-Oct 2023 History of drug use, opiates x 4 mo, cessation 2006 History of hepatitis C History of RVAT with right lung biopsy, 2008 Low back pain Low back pain with left-sided sciatica Lung interstitial disease Lung nodule, multiple Mediastinal lymphadenopathy Metabolic encephalopathy Osteopenia Osteoporosis Peripheral neuropathy Reactive hypertension S/P hysterectomy with oophorectomy, age 26 Supplemental oxygen dependent at home, 3.5-4L Thyroid nodule greater than or equal to 1.5 cm in diameter incidentally noted on imaging study Thyroid nodule, US 2023, biopsy w/ 1 year f/u 2024 Visual disorder Historical Drug abuse Mycoplasma pneumonia Procedure/Surgical History Hysterectomy Cholecystectomy Lung biopsy sample Foot section Carpal tunnel Medications Home Medications (20) Active Advair Diskus 100 mcg-50 mcg/inh inhalation powder 1 puff(s), Inhalation, BID albuterol-ipratropium 2.5 mg-0.5 mg/3 mL inhalation solution 3 mL, PRN, Inhalation, q4h amitriptyline 100 mg oral tablet 100 mg = 1 tab(s), Oral, qHS baclofen 10 mg oral tablet 10 mg = 1 tab(s), Oral, qHS cloNIDine 0.1 mg oral tablet 0.1 mg = 1 tab(s), PRN, Oral, TID Cymbalta 60 mg oral delayed release capsule 60 mg = 1 cap(s), Oral, qDay diclofenac 1% topical gel 1 alberto, Topical, QID DME MISCellaneous See Instructions DME MISCellaneous See Instructions DME MISCellaneous See Instructions docusate calcium 240 mg oral capsule 240 mg = 1 cap(s), Oral, BID gabapentin 600 mg oral tablet 1,200 mg = 2 tab(s), Oral, TID hydrOXYzine hydrochloride 25 mg oral tablet 25 mg = 1 tab(s), PRN, Oral, BID lurasidone 40 mg oral tablet 40 mg = 1 tab(s), Oral, qDay MiraLax oral powder for reconstitution See Instructions Mobic 7.5 mg oral tablet 7.5 mg = 1 tab(s), Oral, qDay Mucinex 600 mg oral tablet, extended release 600 mg = 1 tab(s), PRN, Oral, q12h omeprazole 20 mg oral delayed release capsule 20 mg = 1 cap(s), Oral, qDay Suboxone 2 mg-0.5 mg sublingual film 1 EA, Sublingual, TID Ventolin HFA MDI (90 mcg/inh) inhalation aerosol 2 puff(s), PRN, Inhalation, q4h Allergies NKA Social History Smoking Status - 04/23/2015 Current every day smoker Alcohol Use: Never., 04/22/2023 Home/Environment Domestic Concerns: None. Living situation: Home/Independent. Lives In: Single level home. Current Home Treatments Nebulizer treatments, Oxygen therapy. Professional Skilled Services or Special Community Resources None., 04/22/2023 Nutrition/Health Type of diet: Regular. Appetite Poor. Eating Difficulties None. Caffeine intake amount: half to 1 cup of coffee and 3 cokes per day., 11/30/2024 Sexual Self described orientation: Straight or heterosexual., 04/22/2023 Substance Abuse Use: Current. Type: Prescription medications, Suboxone., 04/22/2023 Use: Past. Type: Prescription medications., 04/05/2019 Tobacco Nicotine Use: 10 or more cigarettes (1/2 pack or more)/day in last 30 days. Previous treatment: Medications, Nicotine replacement. Ready to change: Yes., 06/01/2024 Family History Diabetes mellitus: Father and Sister. HTN - Hypertension: Mother. Heart disease: Mother. Health Status Family Member(s) Immunizations SARS-CoV-2 (COVID-19) mRNA-1273 vaccine: 0 unknown unit (09/14/21) SARS-CoV-2 (COVID-19) mRNA-1273 vaccine: 0.5 unknown unit (05/12/21) SARS-CoV-2 (COVID-19) mRNA-1273 vaccine: 0.5 unknown unit (04/12/21) Code Status No qualifying data available. Digitally Signed by MOLINA JAQUEZ PLUMBER'S ASSISTANT-LOOM STOP CHECKER on 03/04/2025 11:41 AM [id number]* Exam Date Time Procedure Performing Provider Status 03/04/25 6:[address] Angiography Neck w/ Contrast JOSE DANIEL HUTCHINSON MD; Auth (Verified) [id number] ORIGINAL EXAMINATION: CTA OF THE NECK03/04/2025 7:33 am TECHNIQUE: CTA of the neck was performed with the administration of intravenous contrast. Multiplanar reformatted images are provided for review. MIP images are provided for review. Stenosis of the internal carotid arteries measured using NASCET criteria. Automated exposure control, iterative reconstruction, and/or weight based adjustment of the mA/kV was utilized to reduce the radiation dose to as low as reasonably achievable. COMPARISON: CTA chest 04/22/2023 HISTORY: ORDERING SYSTEM PROVIDED HISTORY: Reason for Exam: encephalopathy FINDINGS: The imaged aortic arch is mildly atherosclerotic. The origins of the innominate, bilateral common carotid, right subclavian, and bilateral vertebral arteries are patent. Focal occlusion at the proximal left subclavian artery a few cm past the origin, proximal to the vertebral origin. Immediate reconstitution with the remainder of the visualized artery patent. This is unchanged dating back to the 2022 exam. There is no significant internal carotid artery stenosis bilaterally by NASCET criteria. At the distal left common carotid artery, just proximal to bulb, there is a punctate focus of contrast penetrating into soft plaque anteriorly. This may represent a small penetrating ulceration. The bilateral external carotid arteries are patent. The cervical vertebral arteries are patent and codominant. Hypoventilatory changes. Multi-vessel coronary artery atherosclerosis. Nodules throughout the thyroid, up to 1.8 cm on the right. 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 Immediate reconstitution. This is been unchanged since at least 2022. No significant stenosis of the carotid arteries. Question very small penetrating ulceration of the proximal left common carotid artery. Thyroid nodules. Follow-up with nonemergent thyroid ultrasound is recommended. Critical results were called by Dr. Molina Cruz to Dr. Michael on 03/04/2025 at 07:44. I have personally reviewed the images of this examination, and agree with the resident's findings and interpretation. Interpreted by: Jose Daniel Hutchinson MD Preliminary Report By: Molina Anthony Electronically signed By Jose Daniel Hutchinson MD Dictated Date: 03/04/2025 7:34:26 AM Prelim Date: 03/04/2025 7:49:15 AM Sign Date: 03/04/2025 7:58:20 AM Ordering Provider: [facility]05-01-2025 Note* Exam Date Time Procedure Performing Provider Status 03/04/25 6:[address] Angiography Head w/ Contrast JOSE DANIEL HUTCHINSON MD; Auth (Verified) [id number] ORIGINAL EXAMINATION: CTA OF THE HEAD WITH CONTRAST 03/04/2025 7:20 am: TECHNIQUE: CTA of the head/brain was performed with the administration of intravenous contrast. Multiplanar reformatted images are provided for review. MIP images are provided for review. Automated exposure control, iterative reconstruction, and/or weight based adjustment of the mA/kV was utilized to reduce the radiation dose to as low as reasonably achievable. COMPARISON: CT head on 03/04/2025 HISTORY: ORDERING SYSTEM PROVIDED HISTORY: Reason for Exam: STROKE FINDINGS: ANTERIOR CIRCULATION: No significant stenosis of the intracranial internal carotid, anterior cerebral, or middle cerebral arteries. No aneurysm. POSTERIOR CIRCULATION: No significant stenosis of the vertebral, basilar, or posterior cerebral arteries. No aneurysm. OTHER: No dural venous sinus thrombosis on this non-dedicated study. BRAIN: No mass effect or midline shift. No extra-axial fluid collection. The cabrera-white differentiation is maintained. IMPRESSION: Unremarkable CTA of the head. Interpreted by: Jose Daniel Hutchinson MD Preliminary Report By: Jose Daniel Hutchinson MD Electronically signed By Jose Daniel Hutchinson MD Dictated Date: 03/04/2025 7:22:20 AM Prelim Date: 03/04/2025 7:26:04 AM Sign Date: 03/04/2025 7:26:04 AM Ordering Provider: [facility]05-01-2025 Note* Exam Date Time Procedure Performing Provider Status 03/04/25 3:[address] Head or Brain w/o Contrast JOSE DANIEL HUTCHINSON MD; Auth (Verified) [id number] ORIGINAL EXAMINATION: CT OF THE HEAD WITHOUT CONTRAST 03/04/2025 3:55 am TECHNIQUE: CT of the head was performed without the administration of intravenous contrast. Automated exposure control, iterative reconstruction, and/or weight based adjustment of the mA/kV was utilized to reduce the radiation dose to as low as reasonably achievable. COMPARISON: None. HISTORY: ORDERING SYSTEM PROVIDED HISTORY: Reason for Exam: Altered mental status FINDINGS: BRAIN/VENTRICLES: There is no acute intracranial hemorrhage, mass effect or midline shift. No abnormal extra-axial fluid collection. The cabrera-white differentiation is maintained without evidence of an acute infarct. There is no evidence of hydrocephalus. ORBITS: The visualized portion of the orbits demonstrate no acute abnormality. SINUSES: The visualized paranasal sinuses and mastoid air cells demonstrate no acute abnormality. SOFT TISSUES/SKULL: No acute abnormality of the visualized skull or soft tissues. IMPRESSION: No acute intracranial abnormality. Interpreted by: Jose Daniel Hutchinson MD Preliminary Report By: Jose Daniel Hutchinson MD Electronically signed By Jose Daniel Hutchinson MD Dictated Date: 03/04/2025 4:07:46 AM Prelim Date: 03/04/2025 4:10:49 AM Sign Date: 03/04/2025 4:10:49 AM Ordering Provider: TYLER ALBA [facility]05-01-2025 Note* Exam Date Time Procedure Performing Provider Status 03/04/25 2:59 AM EKG [ED AO] - CV TYLER ALBA DO; th (Verified) ECG Final Report Sinus rhythm Borderline prolonged QT interval Baseline wander in lead(s) V5 EKG interpretation is noted and agreed to in [place]. The interpretation of this patient's EKG contributed directly to the care and management of this patient. Electronic Signature: TYLER ALBA DO 03/04/2025 03:39:51 [facility]02-05-2025 Evaluation + Plan note Future Scheduled Tests Radiology* CT Low Dose Lung Cancer Screening (LDCT) 12/09/24 * MA Mammo Screening Bilateral w/ Beny 12/11/24 * BD Bone Density DEXA Axial Skeleton Adult (21 yrs or older) 01/22/25 [facility] 10-12-2024 Note. MICRO - Microbiology PROCEDURE: Urine Culture [*1] SOURCE: Urine, Clean Catch BODY SITE: COLLECTED DATE/TIME: 08/14/2024 16:14 EDT RECEIVED DATE/TIME: 08/14/2024 19:04 EDT START DATE/TIME: 08/14/2024 19:05 EDT FREE TEXT SOURCE: FINAL REPORTS Final Report [] Verified Date/Time/Personnel: 08/15/2024 14:27 EDT 10,000 - 50,000 cfu/ml Multiple bacterial morphotypes present. Probable Contamination. Suggest recollection if clinically indicated. Performing Locations *1: This test was performed at: [facility], [address] [place] [address], [id number] , [facility]08-28-2024 Evaluation + Plan note Future Scheduled Tests Laboratory* Thyroid Stimulating Hormone 07/01/24 * Free T4 07/01/24 * Complete Blood Count 07/01/24 Radiology* MA Mammo Screening Bilateral w/ Beny 03/13/24 * XR Pelvis Complete Minimum 3 Views 06/26/24 * XR Hip 3-4 Views Bilateral 06/26/24 * XR Hip 3-4 Views Bilateral 11/20/23 * XR Spine Lumbar AP/LAT/FLEX/EXT 06/26/24 * XR Spine Lumbar AP/LAT/FLEX/EXT 06/22/24 * IR Thyroid Biopsy 02/11/24 [facility] 08-23-2024 Note ORIGINAL EXAMINATION: 5 XRAY VIEWS OF THE LUMBAR SPINE including flexion and extension views 06/26/2024 6:12 pm COMPARISON: MRI of the lumbar spine on 06/01/2024 HISTORY: ORDERING SYSTEM PROVIDED HISTORY: Reason for Exam: pain Low back pain radiating into both legs. FINDINGS: There are 5 lumbar vertebrae. The lumbar spine alignment is normal. There is no abnormal motion with flexion and extension. The vertebral bodies are normal in height with no fracture. There is moderately severe degenerative disc disease at L4-L5 and L5-S1 with disc space narrowing, vacuum disc phenomenon and endplate osteophytosis. There is mild degenerative narrowing of other disc spaces. The facet joints show mild degenerative narrowing and spur formation greatest at L4-L5 and L5-S1. There is no evidence of spondylolysis. The sacroiliac joints are normal. IMPRESSION: Moderate lumbar spondylosis, greatest at L4-L5 and L5-S1. Normal alignment with no evidence of instability. Interpreted by: Jose Daniel Hutchinson MD Preliminary Report By: Jose Daniel Hutchinson MD Electronically signed By Jose Daniel Hutchinson MD Dictated Date: 06/27/2024 12:42:38 AM Prelim Date: 06/27/2024 12:45:34 AM Sign Date: 06/27/2024 12:45:34 AM Ordering Provider: [facility]08-23-2024 Note ORIGINAL EXAMINATION: ONE XRAY VIEW OF THE PELVIS AND TWO XRAY VIEWS OF EACH OF THE BILATERAL HIPS 06/26/2024 6:11 pm COMPARISON: None. HISTORY: ORDERING SYSTEM PROVIDED HISTORY: Reason for Exam: Bilateral hip and leg pain. FINDINGS: The pelvis shows no sign of fracture or aggressive osseous lesion. The sacroiliac joints and pubic symphysis have normal alignment. Both hips demonstrate mild joint space narrowing and marginal osteophytic spur formation of the acetabulum. Femoral heads are normal in contour. There is no evidence of avascular necrosis. Trochanteric region is unremarkable. No periarticular calcifications are present. IMPRESSION: Mild osteoarthritis of both hips. Interpreted by: Jose Daniel Hutchinson MD Preliminary Report By: Jose Daniel Hutchinson MD Electronically signed By Jose Daniel Hutchinson MD Dictated Date: 06/27/2024 12:39:49 AM Prelim Date: 06/27/2024 12:42:29 AM Sign Date: 06/27/2024 12:42:29 AM Ordering Provider: [facility]07-29-2024 Hospital Discharge instructions Patient Education 06/01/2024 15:27:47 Sciatica Sciatica Sciatica is a condition that causes pain in the lower back that spreads down into the buttock, hip,and leg. Sometimes the leg pain can happen without any back pain. Sciatica happens when a spinal nerve is irritated or has pressure put on it as comes out of the spinal canal in the lower back. This most often happens when a bulge or rupture of a nearby spinal disk presses on the nerve. Sciatica can also be caused by a narrowing of the spinal canal (spinal stenosis) or spasm of the muscle in the buttocks that the sciatic nerve passes through (pyriform muscle). Sciatica is also called lumbar radiculopathy. Sciatica may begin after a sudden twisting or bending force, such as in a car accident. Or it can happen after a simple awkward movement. In either case, muscle spasm often also happens. Muscle spasmmakes the pain worse. A healthcare provider makes a diagnosis of sciatica from your symptoms and a physical exam. Unless you had an injury from a car accident or fall, you usually won t have X-rays taken at this time. This is because the nerves and disks in your back can t be seen on an X-ray. If the provider sees signsof a compressed nerve, you will need to schedule an MRI scan as an outpatient. Signs of a compressed nerve include loss of strength in a leg. Most sciatica gets better with medicine, exercise, and physical therapy. If your symptoms continue after at least 3 months of medical treatment, you may need surgery or injections to your lower back. Home care Follow these tips when caring for yourself at home: You may need to stay in bed the first few days. But as soon as possible, begin sitting up or walking. This will help you avoid problems that come from staying in bed for long periods. When in bed, try to find a position that is comfortable. A firm mattress is best. Try lying flat onyour back with pillows under your knees. You can also try lying on your side with your knees bent up toward your chest and a pillow between your knees. Avoid sitting for long periods. This puts more stress on your lower back than standing or walking. Use heat from a hot shower, hot bath, or heating pad to help ease pain. Massage can also help. You can also try using an ice pack. You can make your own ice pack by putting ice cubes in a plastic bag. Wrap the bag in a thin towel. Try both heat and cold to see which works best. Use the method that feels best for 20 minutes several times a day. You may use acetaminophen or ibuprofen to ease pain, unless another pain medicine was prescribed. Note: If you have chronic liver or kidney disease, talk with your healthcare provider before taking these medicines. Also talk with your provider if you ve had a stomach ulcer or gastrointestinal bleeding. Use safe lifting methods. Don t lift anything heavier than 15 pounds until all of the pain is gone. Follow-up care Follow up with your healthcare provider, or as advised. You may need physical therapy or additionaltests. If X-rays were taken, a radiologist will look at them. You will be told of any new findings that may affect your care. When to seek medical advice Call your healthcare provider right away if any of these occur: Pain gets worse even after taking prescribed medicine Weakness or numbness in 1 or both legs or hips Numbness in your groin or genital area You can t control your bowel or bladder Fever Redness or swelling over your back or spine [id number] [employer]. [address] [place] [address]. All rights reserved. This information is not intended as a substitute for professional medical care. Always follow yourhealthcare professional's instructions. Follow Up Care 06/01/2024 13:33:31 With:JULIO CESAR JACOBS DO Address: [address] [place] [phone] When:2-4 days [facility] 07-29-2024 Note Discharge Instructions Thank you for allowing [facility] to assist you with your healthcare needs. The following is importantdischarge information regarding your hospital visit. Diagnosis from Today's Visit Sciatica What to Do Next Instructions from Your Care Team No qualifying data available. Post Acute Orders No qualifying data available. You Need to Schedule the Following Appointments Follow Up with JULIO CESAR JACOBS DO When:Within 2-4 days Where:[address] [place] [address] [phone] Allergies NKA Medications Please ask your primary doctor or pharmacist before taking any other medication not listed, including over the counter drugs, herbal medications, vitamins and or supplements as they may interact withyour home medications. What How Much When Why Instructions Last Dose New acetaminophen-hydrocodone ([place] 325- 5 mg oral tablet) 1 tab(s) by mouth Every 6 hours as needed for for pain Sciatica Duration: 3 Days May take 1-2 tablets / dose Printed Prescription Unchanged albuterol (Ventolin HFA MDI (90 mcg/ inh) inhalation aerosol) 2 puff(s) by inhalation Every 4 hours as needed for as needed for wheezing Unchanged albuterol-ipratropium (albuterol-ipratropium 2.5 mg-0.5 mg/ 3 mL inhalation solution) 3 Milliliter by inhalation Every 4 hours as needed for as needed for shortness of breath or wheezing Unchanged amitriptyline (amitriptyline 100 mg oral tablet) 1 tab(s) by mouth Daily at bedtime Unchanged baclofen (baclofen 10 mg oral tablet) 1 tab(s) by mouth Daily at bedtime Unchanged buprenorphine-naloxone (Suboxone 2 mg-0.5 mg sublingual film) 1 Each under the tongue Three (3) times a day Unchanged docusate (docusate calcium 240 mg oral capsule) 1 cap by mouth Two (2) times a day Dark stools Constipation Unchanged DULoxetine (Cymbalta 30 mg oral delayed release capsule) 1 cap by mouth Once a day Unchanged fezolinetant ([place]oz[place] 45 mg oral tablet) 1 tab(s) by mouth Once a day Vasomotor symptoms due to menopause Hot flashes at the same time every day Unchanged gabapentin (gabapentin 600 mg oral tablet) 2 tab(s) by mouth Three (3) times a day Peripheral neuropathy Duration: 30 Days Fill , , Unchanged guaiFENesin (Mucinex 600 mg oral tablet, extended release) 1 tab(s) by mouth Every 12 hours as needed for chest congestion Unchanged hydrOXYzine (hydrOXYzine hydrochloride 25 mg oral tablet) 1 tab(s) by mouth Two (2) times a day as needed for anxiety Unchanged lurasidone (lurasidone 40 mg oral tablet) 1 tab(s) by mouth Once a day Unchanged meloxicam (Mobic 7.5 mg oral tablet) 1 tab(s) by mouth Once a day Dark stools Constipation can increase to 15mg if needed Unchanged omeprazole (omeprazole 20 mg oral delayed release capsule) 1 cap by mouth Once a day Dark stools Constipation Unchanged polyethylene glycol 3350 (MiraLax oral powder for reconstitution) See instructions Dark stools Constipation 17 gram(s) orally every hour until stool. Dissolve in water or juice Please take this list to your next doctor s visit. Bring all medications you take, including over the counter medications, herbals and other supplements with you to your doctor s visit. Patients and families are reminded to discard old lists and to update any records with all medication providers or retail pharmacies. Medication Leaflets acetaminophen and hydrocodone (a SEET a MIN oh fen and tiffani droe KOE done) Verdrocet What is the most important information I should know about acetaminophen and hydrocodone? MISUSE OF OPIOID MEDICINE CAN CAUSE ADDICTION, OVERDOSE, OR . Keep the medication in a place where others cannot get to it. Taking opioid medicine during may cause life-threatening withdrawal symptoms in the . Fatal side effects can occur if you use opioid medicine with alcohol, or with other drugs that cause drowsiness or slow your breathing. Stop taking this medicine and call your doctor right away if you have skin redness or a rash that spreads and causes blistering and peeling. What is acetaminophen and hydrocodone? Acetaminophen and hydrocodone is a combination medicine used to relieve moderate to severe pain. Acetaminophen and hydrocodone contains an opioid medicine, and may be habit-forming. Acetaminophen and hydrocodone may also be used for purposes not listed in this medication guide. What should I discuss with my healthcare provider before taking acetaminophen and hydrocodone? You should not use this medicine if you are allergic to acetaminophen or hydrocodone, or if you have: severe asthma or breathing problems; or a blockage in your stomach or intestines. Tell your doctor if you have ever had: breathing problems, sleep apnea (breathing stops during sleep); liver disease; a drug or alcohol addiction; kidney disease; a head injury or seizures; urination problems; or problems with your thyroid, pancreas, or gallbladder. If you use opioid medicine while you are , your baby could become dependent on the drug. This can cause life-threatening withdrawal symptoms in the baby after it is born. Babies born dependent on opioids may need medical treatment for several weeks. Ask a doctor before using opioid medicine if you are . Tell your doctor if you notice severe drowsiness or slow breathing in the nursing baby. How should I take acetaminophen and hydrocodone? Follow all directions on your prescription label. Never take this medicine in larger amounts, or for longer than prescribed. An overdose can damage your liver or cause . Tell your doctor if you feel an increased urge to use more of this medicine. Never share this medicine with another person, especially someone with a history of drug abuse or addiction. MISUSE CAN CAUSE ADDICTION, OVERDOSE, OR . Keep the medicine in a place where others cannot get to it. Selling or giving away this medicine is against the law. Measure liquid medicine carefully. Use the dosing syringe provided, or use a medicine dose-measuring device (not a kitchen spoon). If you need surgery or medical tests, tell the doctor ahead of time that you are using this medicine. You should not stop using this medicine suddenly. Follow your doctor's instructions about tapering your dose. Store at room temperature away from moisture and heat. Keep track of your medicine. You should be aware if anyone is using it improperly or without a prescription. Do not keep leftover opioid medication. Just one dose can cause in someone using this medicine accidentally or improperly. Ask your pharmacist where to locate a drug take-back disposal program.If there is no take-back program, flush the unused medicine down the toilet. What happens if I miss a dose? Since this medicine is used for pain, you are not likely to miss a dose. Skip any missed dose if itis almost time for your next dose. Do not use two doses at one time. What happens if I overdose? Seek emergency medical attention or call the Poison Help line at . An overdose of this medicine can be fatal, especially in a child or other person using the medicine without a prescription. Overdose symptoms may include nausea, vomiting, sweating, severe drowsiness, pinpoint pupils, slow breathing, or no breathing. Your doctor may recommend you get naloxone (a medicine to reverse an opioid overdose) and keep it with you at all times. A person caring for you can give the naloxone if you stop breathing or don't wake up. Your caregiver must still get emergency medical help and may need to perform CPR (cardiopulmonary resuscitation) on you while waiting for help to arrive. Anyone can buy naloxone from a pharmacy or local health department. Make sure any person caring foryou knows where you keep naloxone and how to use it. What should I avoid while taking acetaminophen and hydrocodone? Avoid driving or operating machinery until you know how this medicine will affect you. Dizziness ordrowsiness can cause falls, accidents, or severe injuries. Do not drink alcohol. Dangerous side effects or could occur. Ask a doctor or pharmacist before using any other medicine that may contain acetaminophen (sometimes abbreviated as APAP). Taking certain medications together can lead to a fatal overdose. What are the possible side effects of acetaminophen and hydrocodone? Get emergency medical help if you have signs of an allergic reaction: hives; difficulty breathing; swelling of your face, lips, tongue, or throat. Opioid medicine can slow or stop your breathing, and may occur. A person caring for you should give naloxone and/or seek emergency medical attention if you have slow breathing with long pauses,blue colored lips, or if you are hard to wake up. In rare cases, acetaminophen may cause a severe skin reaction that can be fatal. This could occur even if you have taken acetaminophen in the past and had no reaction. Stop taking this medicine and call your doctor right away if you have skin redness or a rash that spreads and causes blistering andpeeling. Call your doctor at once if you have: noisy breathing, sighing, shallow breathing, breathing that stops; a light-headed feeling, like you might pass out; liver problems--nausea, upper stomach pain, tiredness, loss of appetite, dark urine, ayaz-colored stools, jaundice (yellowing of the skin or eyes); low cortisol levels-- nausea, vomiting, loss of appetite, dizziness, worsening tiredness or weakness; o high levels of serotonin in the body--agitation, hallucinations, fever, sweating, shivering, fast heart rate, muscle stiffness, twitching, loss of coordination, nausea, vomiting, diarrhea. Serious breathing problems may be more likely in older adults and in those who are debilitated or have wasting syndrome or chronic breathing disorders. Common side effects include: dizziness, drowsiness, feeling tired; nausea, vomiting, stomach pain; constipation; or headache. This is not a complete list of side effects and others may occur. Call your doctor for medical advice about side effects. You may report side effects to FDA at 6-288-FWC-4069. What other drugs will affect acetaminophen and hydrocodone? You may have breathing problems or withdrawal symptoms if you start or stop taking certain other medicines. Tell your doctor if you also use an antibiotic, antifungal medication, heart or blood pressure medication, seizure medication, or medicine to treat HIV or hepatitis C. Opioid medication can interact with many other drugs and cause dangerous side effects or . Be sure your doctor knows if you also use: cold or allergy medicines, bronchodilator asthma/COPD medication, or a diuretic ('water pill'); medicines for motion sickness, irritable bowel syndrome, or overactive bladder; other opioids--opioid pain medicine or prescription cough medicine; a sedative like Valium--diazepam, alprazolam, lorazepam, Xanax, Klonopin, Versed, and others; drugs that make you sleepy or slow your breathing--a sleeping pill, muscle relaxer, medicine to treat mood disorders or mental illness; drugs that affect serotonin levels in your body--a stimulant, or medicine for depression, Parkinson's disease, migraine headaches, serious infections, or nausea and vomiting. This list is not complete. Other drugs may affect acetaminophen and hydrocodone, including prescription and ucgd-nih-nynzemb medicines, vitamins, and herbal products. Not all possible interactions are listed here. Where can I get more information? Your doctor or pharmacist can provide more information about acetaminophen and hydrocodone. Remember, keep this and all other medicines out of the reach of children, never share your medicines with others, and use this medication only for the indication prescribed. Every effort has been made to ensure that the information provided by [employer] ('[employer]') is accurate, up-to-date, and complete, but no guarantee is made to that effect. Drug information contained herein may be time sensitive. [employer] information has been compiled for use by healthcare practitioners and consumers in the [place] and therefore [employer] does not warrant that uses outside of the [place] are appropriate, unless specifically indicated otherwise. [employer] drug information does not endorse drugs, diagnose patients or recommend therapy. [employer] drug information isan informational resource designed to assist licensed healthcare practitioners in caring for their p atients and/or to serve consumers viewing this service as a supplement to, and not a substitute for, the expertise, skill, knowledge and judgment of healthcare practitioners. The absence of a warningfor a given drug or drug combination in no way should be construed to indicate that the drug or drug combination is safe, effective or appropriate for any given patient. [employer] does not assume any responsibility for any aspect of healthcare administered with the aid of information [employer] provides. The information contained herein is not intended to cover all possible uses, directions, precautions, warnings, drug interactions, allergic reactions, or adverse effects. If you have questions about the drugs you are taking, check with your doctor, nurse or pharmacist. Copyright 4924-9919 [employer]. Version: 19.02. Revision Date: 02/11/2024. Education Materials Sciatica Sciatica is a condition that causes pain in the lower back that spreads down into the buttock, hip,and leg. Sometimes the leg pain can happen without any back pain. Sciatica happens when a spinal nerve is irritated or has pressure put on it as comes out of the spinal canal in the lower back. This most often happens when a bulge or rupture of a nearby spinal disk presses on the nerve. Sciatica can also be caused by a narrowing of the spinal canal (spinal stenosis) or spasm of the muscle in the buttocks that the sciatic nerve passes through (pyriform muscle). Sciatica is also called lumbar radiculopathy. Sciatica may begin after a sudden twisting or bending force, such as in a car accident. Or it can happen after a simple awkward movement. In either case, muscle spasm often also happens. Muscle spasmmakes the pain worse. A healthcare provider makes a diagnosis of sciatica from your symptoms and a physical exam. Unless you had an injury from a car accident or fall, you usually won t have X-rays taken at this time. This is because the nerves and disks in your back can t be seen on an X-ray. If the provider sees signsof a compressed nerve, you will need to schedule an MRI scan as an outpatient. Signs of a compressed nerve include loss of strength in a leg. Most sciatica gets better with medicine, exercise, and physical therapy. If your symptoms continue after at least 3 months of medical treatment, you may need surgery or injections to your lower back. Home care Follow these tips when caring for yourself at home: You may need to stay in bed the first few days. But as soon as possible, begin sitting up or walking. This will help you avoid problems that come from staying in bed for long periods. When in bed, try to find a position that is comfortable. A firm mattress is best. Try lying flat onyour back with pillows under your knees. You can also try lying on your side with your knees bent up toward your chest and a pillow between your knees. Avoid sitting for long periods. This puts more stress on your lower back than standing or walking. Use heat from a hot shower, hot bath, or heating pad to help ease pain. Massage can also help. You can also try using an ice pack. You can make your own ice pack by putting ice cubes in a plastic bag. Wrap the bag in a thin towel. Try both heat and cold to see which works best. Use the method that feels best for 20 minutes several times a day. You may use acetaminophen or ibuprofen to ease pain, unless another pain medicine was prescribed. Note: If you have chronic liver or kidney disease, talk with your healthcare provider before taking these medicines. Also talk with your provider if you ve had a stomach ulcer or gastrointestinal bleeding. Use safe lifting methods. Don t lift anything heavier than 15 pounds until all of the pain is gone. Follow-up care Follow up with your healthcare provider, or as advised. You may need physical therapy or additionaltests. If X-rays were taken, a radiologist will look at them. You will be told of any new findings that may affect your care. When to seek medical advice Call your healthcare provider right away if any of these occur: Pain gets worse even after taking prescribed medicine Weakness or numbness in 1 or both legs or hips Numbness in your groin or genital area You can t control your bowel or bladder Fever Redness or swelling over your back or spine [phone] The [employer]. [address] [place] [address]. All rights reserved. This information is not intended as a substitute for professional medical care. Always follow yourhealthcare professional's instructions. Additional Information VACCINATE! IT SAVES LIVES! Members of the community who have not yet received the COVID-19 vaccine and would like to receive it can visit one of [facility] vaccine clinics. There are many vaccine clinic locations within the [facility]. For locations and available times, please visit [email or web address].[email or web address]/. It is important to note that some COVID mobile vaccine clinics are held outdoors and may be canceled in rainy or stormy conditions. To learn more about pediatric vaccinations (ages 5-11), we invite you to visit the [facility] webpage. [email or web address]/[email or web address] [email or web address] learn more about the COVID-19 vaccine, we invite you to visit the CDC website for a list of frequently asked questions. https://www.cdc.gov/coronavirus/2019-ncov/vaccines/faq.html [facility] Patient Portal Access Instructions: Stay connected with your healthcare team and access your personal medical information anytime with the [employer] Patient Portal. If you would like a full copy of your medical records please contact the [facility] Medical Records Department Saturday through Saturday between 8a.m. and 4:30p.m. Please follow the directions below to access the portal: 1.Access the email account you provided upon registration to the [facility].2.Look for an invitation email from [facility].3.Open the email and access the invitation link: Accept Invitation to [facility]4.Fill in the required dodge to create your account. Sign into [email or web address] with your username and password that you created in the above steps to stay up to date. You can then view a summary of results, a summary of your visits, and the ability to download your summaries to your computer or send the information securely to a physician. Remember that your healthcare information is confidential, so carefully consider who you will allow to register on the [employer] Patient Portal for access to your information. You can also access the [facility] Patient Portal on the [employer]. Simply click on Health Records under e[employer]ruction by [employer] and then click on the [employer] logo. HOW TO SAFELY DISPOSE OF PRESCRIPTION MEDICATIONS Please use one of the following methods to safely dispose of your unused medications. 1.Use a drug disposal kit: the drug disposal pouch allows you to safely discard your old and unuseddrugs. Ask your nurse to give you one when you are discharged.2.Visit a local take-back location: Many local pharmacies and police departments have programs that collect old and unwanted prescriptiondrugs. Call your local pharmacy or go to http://Machinima.Yoozon/6D1Zr6v to find one close to you.3.Make use of household items: Use cat litter or old coffee grounds to dispose medications if other options arenot available. Mix your drugs with these household products, seal them in an airtight container andthrow it into the garbage. Call [facility]: [phone] to be sure your drugs can be disposed of in this way. Some medicines may require a different approach.4.Never flush your medications down the toilet. IF YOU HAVE BEEN PRESCRIBED AN OPIOIDS FOR PAIN If you have been prescribed an opioid (such as hydrocodone, oxycodone or morphine), it is critical to understand the possible side effects and risks of opioid pain medications. Even when taken as directed, opioids can have several side effects including: Tolerance, meaning you might need to take more of a medication for the same pain relief. Nausea, vomiting and/or constipation. Sleepiness, dizziness, dry mouth, confusion, depression or itching. Physical dependence, meaning you have withdrawal symptoms when a medication is stopped ? this can develop within a few days. KNOW YOUR RESPONSIBILITIES It is important to know exactly how much and how often to take the opioid pain medications you are prescribed. Never take opioids in higher amounts or more often than prescribed. Do not combine opioids with alcohol or other drugs that cause drowsiness, such as benzodiazepines, also known as benzos,including diazepam and alprazolam, muscle relaxants or sleep aids. Never sell or share prescriptionopioids. This is illegal. Store opioids in a secure place and out of reach of others (including children, family, friends and visitors). The last page(s) of this document has been signed and retained as a CHART COPY Signatures Patient Education Materials Sciatica Medication Leaflets acetaminophen and hydrocodone My discharge plan and instructions have been reviewed and explained to me and IJENI BRENDA J understand my current condition and have read and understand these discharge instructions. I have received a written copy of the plan/instructions. If I have questions, I am aware that I should contact my doctor. 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 COMPARISON: None. HISTORY: ORDERING SYSTEM PROVIDED HISTORY: Reason for Exam: back pain, constipation, numbness FINDINGS: BONES/ALIGNMENT: There is normal alignment of the spine. The vertebral body heights are maintained. T12 and L3 vertebral body hemangiomas. Schmorl's nodes at the inferior endplate of L2 and L3. Modic type 2 changes about the L5-S1 endplates.. SPINAL CORD: The conus terminates normally at T12 L1. SOFT TISSUES: . Tubal in paraspinal soft tissues are unremarkable. No acute abnormality within the included retroperitoneum. L1-L2: There is no significant disc herniation, spinal canal stenosis or neural foraminal narrowing. L2-L3: A diffuse disc bulge is appreciated with small posterior annular tear. Facet and ligamentum flavum hypertrophy are appreciated resulting in mild narrowing of the spinal canal. No significant neural foraminal stenosis. L3-L4: Mild diffuse disc bulge with ligamentum flavum and facet hypertrophy resulting in mild narrowing of the spinal canal. No significant neural foraminal stenosis. L4-L5: Diffuse disc bulge with ligamentum flavum and facet hypertrophy resulting in [id number]-[id number] narrowing of the spinal canal, moderate bilateral lateral recess stenosis, and suspected contact of the descending L5 nerve roots bilaterally. Moderate bilateral neural foraminal stenoses. L5-S1: Small diffuse disc bulge with facet hypertrophy without significant narrowing of the spinal canal. Moderate right and moderate to severe left neural foraminal stenosis. IMPRESSION: 1. No evidence of acute abnormality or compression of the cauda equina. 2. Multilevel degenerative changes as described above without severe spinal canal or neural foraminal stenosis. Interpreted by: Ko Rutledge Preliminary Report By: Ko Rutledge Electronically signed By Ko Rutledge Dictated Date: 06/01/2024 3:06:34 PM Prelim Date: 06/01/2024 3:15:01 PM Sign Date: 06/01/2024 3:15:01 PM [facility] Discharge instructions Patient Education 05/26/2024 21:10:20 Possible Causes of Low Back or Leg Pain Possible Causes of Low Back or Leg Pain BIG: The symptoms in your back or leg may be due to pressure on a nerve. This pressure may be caused by a damaged disk or by abnormal bone growth. Either way, you may feel pain, burning, tingling, ornumbness. If you have pressure on a nerve that connects to the sciatic nerve, pain may shoot down your leg. Pressure from the disk Constant wear and tear can weaken a disk over time and cause back pain. The disk can then be damaged by a sudden movement or injury. If its soft center starts to bulge, the disk may press on a nerve.Or the outside of the disk may tear, and the soft center may squeeze through and pinch a nerve. Pressure from bone As a disk wears out, the vertebrae right above and below the disk start to touch. This can put pressure on a nerve. Often, abnormal bone (called bone spurs) grows where the vertebrae rub against eachother. This can cause the foramen or the spinal canal to narrow (called stenosis) and press againsta nerve. [id number] [employer]. [address] [place] [address]. All rights reserved. This information is not intended as a substitute for professional medical care. Always follow yourhealthcare professional's instructions. Follow Up Care 05/26/2024 20:55:26 With:Go to emergency room if symptoms worsen Address:Unknown When:2-4 days With:JULIO CESAR JACOBS DO Address: [address] [place] [phone] When:2-4 days [facility] 07-23-2024 Note Discharge Instructions Thank you for allowing [facility] to assist you with your healthcare needs. The following is importantdischarge information regarding your hospital visit. Diagnosis from Today's Visit Leg pain What to Do Next Instructions from Your Care Team Take Tylenol and or Motrin as needed for pain. Do not exceed the recommended dose. We do not have vascular ultrasound available at the time came and would recommend you coming at the earliest possible tomorrow for ultrasound rule out DVT. We did discuss possible prophylactic Lovenox after surgical procedure making her declined and with follow-up ultrasound. Return to the emergency department if you have worsening symptoms or any other care concern. Discharge ED Outpatient Vascular Lab - Ordered -- Test Requested: venous doppler left leg, Lower extremity, Left, Test Reason: Pain, Mon-Fri 8am-4:30pm: Call [phone] at 7:30am to schedule a same day appointment for testing. Please be aware there may be a short wait time., Weekend Holiday 8am-6p... Post Acute Orders No qualifying data available. You Need to Schedule the Following Appointments Follow Up with Go to emergency room if symptoms worsen When:Within 2-4 days Follow Up with JULIO CESAR JACOBS DO When:Within 2-4 days Where:[address] [facility] [place] [address]- [phone] Allergies NKA Medications Please ask your primary doctor or pharmacist before taking any other medication not listed, including over the counter drugs, herbal medications, vitamins and or supplements as they may interact withyour home medications. What How Much When Why Instructions Last Dose Unchanged albuterol (Ventolin HFA MDI (90 mcg/ inh) inhalation aerosol) 2 puff(s) by inhalation Every 4 hours as needed for as needed for wheezing Unchanged albuterol-ipratropium (albuterol-ipratropium 2.5 mg-0.5 mg/ 3 mL inhalation solution) 3 Milliliter by inhalation Every 4 hours as needed for as needed for shortness of breath or wheezing Unchanged amitriptyline (amitriptyline 100 mg oral tablet) 1 tab(s) by mouth Daily at bedtime Unchanged baclofen (baclofen 10 mg oral tablet) 1 tab(s) by mouth Daily at bedtime Unchanged buprenorphine-naloxone (Suboxone 2 mg-0.5 mg sublingual film) 1 Each under the tongue Three (3) times a day Unchanged docusate (docusate calcium 240 mg oral capsule) 1 cap by mouth Two (2) times a day Dark stools Constipation Unchanged DULoxetine (Cymbalta 30 mg oral delayed release capsule) 1 cap by mouth Once a day Unchanged fezolinetant (Veozah 45 mg oral tablet) 1 tab(s) by mouth Once a day Vasomotor symptoms due to menopause Hot flashes at the same time every day Unchanged gabapentin (gabapentin 600 mg oral tablet) 2 tab(s) by mouth Three (3) times a day Peripheral neuropathy Duration: 30 Days Fill , , Unchanged guaiFENesin (Mucinex 600 mg oral tablet, extended release) 1 tab(s) by mouth Every 12 hours as needed for chest congestion Unchanged hydrOXYzine (hydrOXYzine hydrochloride 25 mg oral tablet) 1 tab(s) by mouth Two (2) times a day as needed for anxiety Unchanged lurasidone (lurasidone 40 mg oral tablet) 1 tab(s) by mouth Once a day Unchanged meloxicam (Mobic 7.5 mg oral tablet) 1 tab(s) by mouth Once a day Dark stools Constipation can increase to 15mg if needed Unchanged omeprazole (omeprazole 20 mg oral delayed release capsule) 1 cap by mouth Once a day Dark stools Constipation Unchanged polyethylene glycol 3350 (MiraLax oral powder for reconstitution) See instructions Dark stools Constipation 17 gram(s) orally every hour until stool. Dissolve in water or juice Unchanged polyethylene glycol 3350 (MiraLax oral powder for reconstitution) 17 gram(s) by mouth Once a day Dark stools Constipation Duration: 30 Days dissolve in water or juice. AFTER blowout regimen Please take this list to your next doctor s visit. Bring all medications you take, including over the counter medications, herbals and other supplements with you to your doctor s visit. Patients and families are reminded to discard old lists and to update any records with all medication providers or retail pharmacies. Education Materials Possible Causes of Low Back or Leg Pain BIG: The symptoms in your back or leg may be due to pressure on a nerve. This pressure may be caused by a damaged disk or by abnormal bone growth. Either way, you may feel pain, burning, tingling, ornumbness. If you have pressure on a nerve that connects to the sciatic nerve, pain may shoot down your leg. Pressure from the disk Constant wear and tear can weaken a disk over time and cause back pain. The disk can then be damaged by a sudden movement or injury. If its soft center starts to bulge, the disk may press on a nerve.Or the outside of the disk may tear, and the soft center may squeeze through and pinch a nerve. Pressure from bone As a disk wears out, the vertebrae right above and below the disk start to touch. This can put pressure on a nerve. Often, abnormal bone (called bone spurs) grows where the vertebrae rub against eachother. This can cause the foramen or the spinal canal to narrow (called stenosis) and press againsta nerve. 3881-8243 [employer]. [address] [place] [address], [place] [address]. All rights reserved. This information is not intended as a substitute for professional medical care. Always follow yourhealthcare professional's instructions. Additional Information VACCINATE! IT SAVES LIVES! Members of the community who have not yet received the COVID-19 vaccine and would like to receive it can visit one of [facility] vaccine clinics. There are many vaccine clinic locations within the [facility]. For locations and available times, please visit www.[email or web address].[place].gov/. It is important to note that some COVID mobile vaccine clinics are held outdoors and may be canceled in rainy or stormy conditions. To learn more about pediatric vaccinations (ages 5-11), we invite you to visit the [facility] webpage. [email or web address]/[email or web address] learn more about the COVID-19 vaccine, we invite you to visit the CDC website for a list of frequently asked questions. https://www.cdc.gov/coronavirus/2019-ncov/vaccines/faq.html [facility] Patient Portal Access Instructions: Stay connected with your healthcare team and access your personal medical information anytime with the [employer] [facility] Patient Portal. If you would like a full copy of your medical records please contact the [facility] Medical Records Department Saturday through Saturday between 8a.m. and 4:30p.m. Please follow the directions below to access the portal: 1.Access the email account you provided upon registration to the hospital.2.Look for an invitation email from [facility].3.Open the email and access the invitation link: Accept Invitation to [facility] [facility]4.Fill in the required dodge to create your account. Sign into [email or web address] with your username and password that you created in the above steps to stay up to date. You can then view a summary of results, a summary of your visits, and the ability to download your summaries to your computer or send the information securely to a physician. Remember that your healthcare information is confidential, so carefully consider who you will allow to register on the [employer] Patient Portal for access to your information. You can also access the [facility] Patient Portal on the [employer] alberto. Simply click on Health Records under [employer] and then click on the F[employer] logo. HOW TO SAFELY DISPOSE OF PRESCRIPTION MEDICATIONS Please use one of the following methods to safely dispose of your unused medications. 1.Use a drug disposal kit: the drug disposal pouch allows you to safely discard your old and unuseddrugs. Ask your nurse to give you one when you are discharged.2.Visit a local take-back location: Many local pharmacies and police departments have programs that collect old and unwanted prescriptiondrugs. Call your local pharmacy or go to http://Machinima.Yoozon/4P0As0q to find one close to you.3.Make use of household items: Use cat litter or old coffee grounds to dispose medications if other options arenot available. Mix your drugs with these household products, seal them in an airtight container andthrow it into the garbage. Call [facility]: [phone] to be sure your drugs can be disposed of in this way. Some medicines may require a different approach.4.Never flush your medications down the toilet. IF YOU HAVE BEEN PRESCRIBED AN OPIOIDS FOR PAIN If you have been prescribed an opioid (such as hydrocodone, oxycodone or morphine), it is critical to understand the possible side effects and risks of opioid pain medications. Even when taken as directed, opioids can have several side effects including: Tolerance, meaning you might need to take more of a medication for the same pain relief. Nausea, vomiting and/or constipation. Sleepiness, dizziness, dry mouth, confusion, depression or itching. Physical dependence, meaning you have withdrawal symptoms when a medication is stopped ? this can develop within a few days. KNOW YOUR RESPONSIBILITIES It is important to know exactly how much and how often to take the opioid pain medications you are prescribed. Never take opioids in higher amounts or more often than prescribed. Do not combine opioids with alcohol or other drugs that cause drowsiness, such as benzodiazepines, also known as benzos,including diazepam and alprazolam, muscle relaxants or sleep aids. Never sell or share prescriptionopioids. This is illegal. Store opioids in a secure place and out of reach of others (including children, family, friends and visitors). The last page(s) of this document has been signed and retained as a CHART COPY Signatures Patient Education Materials Possible Causes of Low Back or Leg Pain Medication Leaflets My discharge plan and instructions have been reviewed and explained to me and I,VERO NGO understand my current condition and have read and understand these discharge instructions. I have received a written copy of the plan/instructions. If I have questions, I am aware that I should contact my doctor. Patient/Assistant Controller Signature: Date/Time: Relationship to Patient: Witness Name/Signature: Date/Time: [facility]05-10-2024 Evaluation + Plan note Future Scheduled Tests Radiology* MA Mammo Screening Bilateral w/ Beny 03/13/24 * XR Pelvis Complete Minimum 3 Views 06/26/24 * XR Hip 3-4 Views Bilateral 06/26/24 * XR Hip 3-4 Views Bilateral 11/20/23 * XR Spine Lumbar AP/LAT/FLEX/EXT 06/26/24 * XR Spine Lumbar AP/LAT/FLEX/EXT 06/22/24 * IR Thyroid Biopsy 02/11/24 [facility] 04-18-2024 Note* Exam Date Time Procedure Performing Provider Status 02/20/24 11:33 AM Echocardiogram, Adult ([facility]) Auth (Verified) [facility] 03-12-2024 Discharge summary Author Ina Pacheco [facility] January 14, 2024 7:44pm Note Date/Time January 14, 2024 5:3 2pm [facility] Medical Records Department [address] [place] [address] Emergency Department Summary 01/14/24 MR#: [id number] Acct: [id number] Name: VERO NGO Rep #:[id number] : 1960 63 From: Sixto Harry PCP: SUAD Madison Status:REG ER Location: ED ADDENDUM by Dr. Ina Pacheco DO on 01/14/24 at 1944 Patient signed out to me due to shift change. Patient been discharged however with family was getting her up she started complaint of increased left leg pain and then it came out the patient had a fall couple weeks ago. She is not havingmore pain localized to her hip. I will add on hip x-ray. On exam she is also complaining of continued left carter pain I do not appreciate any edema. She has tenderness palpation over the left greater trochanter and pain with range of motion of the hip. X-ray obtained which is interpreted by myself as well as radiology does not showany acute fracture or dislocation. Patient is given Tylenol. Would not give anything sedating given the patient's presentation. Will start the patient on aprednisone burst this suspect this is more radicular pain. Patient and family agreeable with this plan. Patient discharged home. Has a walker to use. 01/14/241943<Electronically signed by Ina Pacheco DO> Cosigner Signature (if applicable): cc: HOUSE CALLS NURSE PRACTITIONER-C Sammy Zabala ~* Signed HPI History of Present Illness Chief Complaint: Overdose Narrative Narrative: Delayed note due to unexpected system downtime. Brought in by EMS for concerns for overdose. Patient found by family member slumped over there was a pill bottle reporting methamphetamines. She has a history of Suboxone use. Blood glucose was 212. No other information at this time. [facility] Medical History (Updated 01/14/24 @ 17:[address] Sixto Holloway DO) Angina pectoris Anxiety CAD (coronary artery disease) Chronic bronchitis Chronic pain Depression Diverticulitis Dyspnea Emphysema lung Hepatitis C HLD (hyperlipidemia) Hyperhidrosis Interstitial lung disease Multiple thyroid nodules Neuropathic pain Palpitations Rheumatoid arthritis Stage 2 moderate COPD by GOLD classification Tobacco abuse Home Medications amitriptyline 50 mg tablet 100 mg PO QHS 01/26/14 [History Last Taken Unknown] atorvastatin 80 mg tablet (Lipitor) 80 mg PO DAILY 07/16/18 [History Last Taken Unknown] buprenorphine 4 mg-naloxone 1 mg sublingual film (Suboxone) 1 film sublingual .COMPLEX 07/16/18 [History Last Taken Unknown] cholecalciferol (vitamin D3) 1,250 mcg (50,000 unit) capsule 50,000 unit PO QWEEK 07/16/18 [History Last Taken Unknown] gabapentin 800 mg tablet (Neurontin) 800 mg PO .qid 07/16/18 [History Last Taken Unknown] lorazepam 0.5 mg tablet (Ativan) 0.5 mg PO TID 07/16/18 [History Last Taken Unknown] lurasidone 60 mg tablet (Latuda) 60 mg PO DAILY 09/13/20 [History Last Taken Unknown] baclofen 10 mg tablet 10 mg PO QHS PRN muscle spasm 08/24/22 [History Last Taken Unknown] ipratropium 0.5 mg-albuterol 3 mg (2.5 mg base)/3 mL nebulization soln 3 ml inhalation Q4H PRN PRN SOB &/OR WHEEZING #180 mL 08/24/22 [Rx Last Taken Unknown] Nebulizer Compressor #1 ea 01/09/23 [Rx Last Taken Unknown] PEP device #1 ea 05/01/23 [Rx Last Taken Unknown] PEP device #1 ea 05/01/23 [Rx Last Taken Unknown] budesonide 160 mcg-glycopyr 9 mcg-formot 4.8 mcg/actuation HFA inhaler (Breztri Aerosphere) 2 inh inhalation BID #10.7 grams 05/01/23 [Rx Last Taken Unknown] cefdinir 300 mg capsule 300 mg PO Q12H #14 caps 01/14/24 [Rx Last Taken Unknown] Allergy/AdvReac Type Severity Reaction Status Date / Time No Known Allergies Allergy Verified 05/28/23 02:19 Family History Mother CAD (coronary artery disease) stents Hypertension Heart disease Sister CAD (coronary artery disease) Diabetes Father Diabetes Heart disease Hypertension Surgical History H/O foot surgery H/O total hysterectomy History of bilateral carpal tunnel release History of lung surgery History of tonsillectomy Social History Smoking Status: Current every day smoker tobacco type: cigarettes Tobacco: How many years used: 54 alcohol intake: never substance use type: does not use ROS ROS ED Review of Systems ROS Unobtainable: due to mental status EXAM Physical Exam Const Vital Signs: 01/14/24 16:30 01/14/24 16:54 01/14/24 15:00 Temperature 97.0 F L Temperature Source Temporal Pulse Rate 86 92 Respiratory Rate 12 13 Blood Pressure 114/67 125/69 H Blood Pressure Mean 82 87 Pulse Ox 93 93 95 Oxygen Delivery Method Nasal Cannula Nasal Cannula Nasal Cannula Oxygen Flow Rate (L/min) 2 2 4 01/14/24 14:56 Temperature 97.5 F L Temperature Source Temporal Pulse Rate 100 Respiratory Rate 12 Blood Pressure 101/89 H Blood Pressure Mean 93 Pulse Ox 94 Oxygen Delivery Method Room Air Oxygen Flow Rate (L/min) Positive well nourished Constitutional Narrative: Nasal cannula, unresponsive there was response to strong sternal rub with movement all 4 extremities. HEENT Reports moist mucous membranes normocephalic and atraumatic Eyes Eyes Narrative: Pinpoint pupils noted. General Eye ED: Yes normal appearance of both eyes Neck no lymphadenopathy and supple General: Negative for tenderness Chest Wall Chest: Negative for tenderness Resp normal respiratory effort and normal air movement Effort and Inspection: symmetric chest movement; Negative for respiratory distress Cardio regular rate, regular rhythm and no murmurs Peripheral Pulses: pulses 2+ throughout GI normal to inspection, nondistended, normoactive bowel sounds and non-tender Palpation: Negative for guarding or rebound tenderness present Back/Spine no CVA tenderness and no thoracic nor lumbar tenderness Extremity normal to inspection General Extremety ED: Negative for edema or tenderness General Extremity: Negative for edema Neuro Neuro Narrative: Unresponsive moving all 4 extremities on sternal rub. Withdraws to pain 4 extremities. Sensorium / Orientation: awake and alert Skin no rashes or lesions noted and no wounds MDM MDM MDM Narrative Medical decision making narrative: Interventions / MDM: Differential diagnosis: Overdose, infectious findings. Diagnosis considered but do not suspect: N/A My EKG interpretation: Sinus rate of 93, no ST changes, isolated T wave version leads III. Nonspecific. Imaging independently reviewed and interpreted by myself: CT brain: No acute process. Chest x-ray 1 view: Left lower lobe atelectasis versus infiltrate. External documents reviewed: N/A Test considered but not ordered:N/A ED course: Patient unresponsive pinpoint pupils. Unknown information due to system downtime. Workup initiated for altered mental status. Narcan ordered. Patient was monitored ED suddenly woke up, she did report having Adderall that she took. Daughter later did come, states possibility of her getting other medications. She was denying any opiate use. WBC returned at 16. Hemoglobin 14.9. Creatinine 0.9. Sodium 141 potassium 3.5. Glucose 93. Normal liver enzymes. Alcohol less than 3. 1745: Reevaluation patient daughter in the room also again. She has chronic cough she is on chronic 2 L her oxygen with COPD. Discussed findings possible pneumonia. She was ambulated pulse ox 94 she has unsteady gait at baseline daughter confirms this is her normal self. She has declined using a walker previously. In addition while walking, states had left leg pain last 2 days. Evaluated anterior carter region. No calf pain. No swelling. No erythema. Discussed monitoring symptoms. Low suspicion for any fracture or DVT at this time. She started on cefdinir along with Tylenol and first dose in the ED. Discussed return precautions. Daughter will be at home with the patient monitoring. Of note, toxicology screen did not get resulted due to downtime, discussed with daughter can make sure lab draws and checks, she did admit to Adderall, discussed there is possible opiate findings however she is also on Suboxone. Daughter states would not change plan of care at this time therefore she did not want to wait for this. She be discharged with outpatient follow-up. All questions were answered. Re-evaluation: stable Disposition discussed with patient/family/significant other: Patient and daughter Case discussed with consulting clinician: N/A This note was generated with picsell dictation software. It may contain incorrectwords, spelling, and punctuation that were not noted in checking the note beforesigning. Radiography Diagnostic Testing: Clinical Impression(s) from Imaging Studies Brain CT 01/14/24 15:50 IMPRESSION: Normal unenhanced CT scan of the brain. Electronically Signed: Vish Rodriguez MD at 16:24 EDT , Chest X-Ray 01/14/24 16:00 IMPRESSION: Patchy airspace density in both lung bases worse on the left suggestive of atelectasis or infiltrate. Consider further evaluation with CT of the chest. Electronically Signed: Vish Rodriguez MD at 17:15 EDT , Discharge Plan Triage Chief Complaint: Overdose ED Provider: Sixto Holloway Dx/Rx/DC Orders Clinical Impression: Overdose, COPD (chronic obstructive pulmonary disease), Pneumonia Instructions: ED Overdose, Opiate, ED Pneumonia (Adult) Prescriptions: New cefdinir 300 mg capsule 300 mg PO Q12H Qty: 14 0RF No Action gabapentin [Neurontin] 800 mg tablet 800 mg PO .qid buprenorphine-naloxone [Suboxone] 4-1 mg film 1 film SUBLINGUAL .COMPLEX Patient Comments: 1 film SUBLINGUAL in the morning, half film in PM Rx Instructions: 1 film SUBLINGUAL in the morning, half film in PM atorvastatin [Lipitor] 80 mg tablet 80 mg PO DAILY lorazepam [Ativan] 0.5 mg tablet 0.5 mg PO TID cholecalciferol (vitamin D3) 50,000 unit capsule 50,000 unit PO QWEEK Latuda 60 mg tablet 60 mg PO DAILY Rx Instructions: must administer with food (at least 350 calories) baclofen 10 mg tablet 10 mg PO QHS PRN (Reason: muscle spasm) ipratropium-albuterol 0.5 mg-3 mg(2.5 mg base)/3 mL solution for nebulization 3 ml inhalation Q4H PRN PRN (Reason: SOB &/OR WHEEZING) Qty: 180 6RF (DME) PEP device See Rx Instructions .ROUTE .MEDSUPPLY Qty: 1 0RF Rx Instructions: with training Breztri Aerosphere 160-9-4.8 mcg/actuation HFA aerosol inhaler 2 inh inhalation BID Qty: 10.7 6RF (DME) PEP device See Rx Instructions .ROUTE .MEDSUPPLY Qty: 1 0RF Rx Instructions: with training amitriptyline 50 MG tablet 100 mg PO QHS (DME) Nebulizer Compressor See Rx Instructions .ROUTE .MEDSUPPLY Qty: 1 0RF Rx Instructions: As directed Primary Care Provider: Sammy Zabala NP Referrals: Sammy Zabala HOUSE CALLS NURSE PRACTITIONER, HOUSE CALLS NURSE PRACTITIONER-C [Primary Care Provider] - 3-5 Days Activity Restrictions/Additional Instructions: For overdose now back to normal. Suspect opiate related. Questionable pneumonia on x-ray. You are stable on her 2 L oxygen. Take antibiotic as prescribed. Head CT negative. Follow-up with your doctor. Symptoms clinicallyworsens or worsening breathing issues, return to the ED for reevaluation. Disposition Disposition: Home, Self Care What to do if you have Problems For any increased pain, shortness of breath, bleeding, nausea or vomiting, chestpain, or any unexpected problems, contact your Primary Care Provider. Call [facility] ([phone]) or report to the closest Emergency Room. Call 911 if necessary. 01/14/24 1747 <Electronically signed by Sixot Harry> Cosigner Signature (if applicable): CC: HOUSE CALLS NURSE PRACTITIONER-C Sammy Zabala ~ Signed [facility] Work Phone: [phone]) 921-204503-12-2024 Discharge summary Author Sixto Holloway [facility] January 14, 2024 5:47pm Note Date/Time January 14, 2024 5:3 2pm [facility] Medical Records Department [address] [place] [id number] Emergency Department Summary 01/14/24 MR#: [id number] Acct: [id number] Name: VERO NGO Rep #:[id number] : 1960 63 From: Sixto Harry PCP: SUAD Madison Status:REG ER Location: ED HPI History of Present Illness Chief Complaint: Overdose Narrative Narrative: Delayed note due to unexpected system downtime. Brought in by EMS for concerns for overdose. Patient found by family member slumped over there was a pill bottle reporting methamphetamines. She has a history of Suboxone use. Blood glucose was 212. No other information at this time. [facility] Medical History (Updated 01/14/24 @ 17:[address] Sixto Holloway DO) Angina pectoris Anxiety CAD (coronary artery disease) Chronic bronchitis Chronic pain Depression Diverticulitis Dyspnea Emphysema lung Hepatitis C HLD (hyperlipidemia) Hyperhidrosis Interstitial lung disease Multiple thyroid nodules Neuropathic pain Palpitations Rheumatoid arthritis Stage 2 moderate COPD by GOLD classification Tobacco abuse Home Medications amitriptyline 50 mg tablet 100 mg PO QHS 01/26/14 [History Last Taken Unknown] atorvastatin 80 mg tablet (Lipitor) 80 mg PO DAILY 07/16/18 [History Last Taken Unknown] buprenorphine 4 mg-naloxone 1 mg sublingual film (Suboxone) 1 film sublingual .COMPLEX 07/16/18 [History Last Taken Unknown] cholecalciferol (vitamin D3) 1,250 mcg (50,000 unit) capsule 50,000 unit PO QWEEK 07/16/18 [History Last Taken Unknown] gabapentin 800 mg tablet (Neurontin) 800 mg PO .qid 07/16/18 [History Last Taken Unknown] lorazepam 0.5 mg tablet (Ativan) 0.5 mg PO TID 07/16/18 [History Last Taken Unknown] lurasidone 60 mg tablet (Latuda) 60 mg PO DAILY 09/13/20 [History Last Taken Unknown] baclofen 10 mg tablet 10 mg PO QHS PRN muscle spasm 08/24/22 [History Last Taken Unknown] ipratropium 0.5 mg-albuterol 3 mg (2.5 mg base)/3 mL nebulization soln 3 ml inhalation Q4H PRN PRN SOB &/OR WHEEZING #180 mL 08/24/22 [Rx Last Taken Unknown] Nebulizer Compressor #1 ea 01/09/23 [Rx Last Taken Unknown] PEP device #1 ea 05/01/23 [Rx Last Taken Unknown] PEP device #1 ea 05/01/23 [Rx Last Taken Unknown] budesonide 160 mcg-glycopyr 9 mcg-formot 4.8 mcg/actuation HFA inhaler (Breztri Aerosphere) 2 inh inhalation BID #10.7 grams 05/01/23 [Rx Last Taken Unknown] cefdinir 300 mg capsule 300 mg PO Q12H #14 caps 01/14/24 [Rx Last Taken Unknown] Allergy/AdvReac Type Severity Reaction Status Date / Time No Known Allergies Allergy Verified 05/28/23 02:19 Family History Mother CAD (coronary artery disease) stents Hypertension Heart disease Sister CAD (coronary artery disease) Diabetes Father Diabetes Heart disease Hypertension Surgical History H/O foot surgery H/O total hysterectomy History of bilateral carpal tunnel release History of lung surgery History of tonsillectomy Social History Smoking Status: Current every day smoker tobacco type: cigarettes Tobacco: How many years used: 54 alcohol intake: never substance use type: does not use ROS ROS ED Review of Systems ROS Unobtainable: due to mental status EXAM Physical Exam Const Vital Signs: 01/14/24 16:30 01/14/24 16:54 01/14/24 15:00 Temperature 97.0 F L Temperature Source Temporal Pulse Rate 86 92 Respiratory Rate 12 13 Blood Pressure 114/67 125/69 H Blood Pressure Mean 82 87 Pulse Ox 93 93 95 Oxygen Delivery Method Nasal Cannula Nasal Cannula Nasal Cannula Oxygen Flow Rate (L/min) 2 2 4 01/14/24 14:56 Temperature 97.5 F L Temperature Source Temporal Pulse Rate 100 Respiratory Rate 12 Blood Pressure 101/89 H Blood Pressure Mean 93 Pulse Ox 94 Oxygen Delivery Method Room Air Oxygen Flow Rate (L/min) Positive well nourished Constitutional Narrative: Nasal cannula, unresponsive there was response to strong sternal rub with movement all 4 extremities. HEENT Reports moist mucous membranes normocephalic and atraumatic Eyes Eyes Narrative: Pinpoint pupils noted. General Eye ED: Yes normal appearance of both eyes Neck no lymphadenopathy and supple General: Negative for tenderness Chest Wall Chest: Negative for tenderness Resp normal respiratory effort and normal air movement Effort and Inspection: symmetric chest movement; Negative for respiratory distress Cardio regular rate, regular rhythm and no murmurs Peripheral Pulses: pulses 2+ throughout GI normal to inspection, nondistended, normoactive bowel sounds and non-tender Palpation: Negative for guarding or rebound tenderness present Back/Spine no CVA tenderness and no thoracic nor lumbar tenderness Extremity normal to inspection General Extremety ED: Negative for edema or tenderness General Extremity: Negative for edema Neuro Neuro Narrative: Unresponsive moving all 4 extremities on sternal rub. Withdraws to pain 4 extremities. Sensorium / Orientation: awake and alert Skin no rashes or lesions noted and no wounds MDM MDM MDM Narrative Medical decision making narrative: Interventions / MDM: Differential diagnosis: Overdose, infectious findings. Diagnosis considered but do not suspect: N/A My EKG interpretation: Sinus rate of 93, no ST changes, isolated T wave version leads III. Nonspecific. Imaging independently reviewed and interpreted by myself: CT brain: No acute process. Chest x-ray 1 view: Left lower lobe atelectasis versus infiltrate. External documents reviewed: N/A Test considered but not ordered:N/A ED course: Patient unresponsive pinpoint pupils. Unknown information due to system downtime. Workup initiated for altered mental status. Narcan ordered. Patient was monitored ED suddenly woke up, she did report having Adderall that she took. Daughter later did come, states possibility of her getting other medications. She was denying any opiate use. WBC returned at 16. Hemoglobin 14.9. Creatinine 0.9. Sodium 141 potassium 3.5. Glucose 93. Normal liver enzymes. Alcohol less than 3. 1745: Reevaluation patient daughter in the room also again. She has chronic cough she is on chronic 2 L her oxygen with COPD. Discussed findings possible pneumonia. She was ambulated pulse ox 94 she has unsteady gait at baseline daughter confirms this is her normal self. She has declined using a walker previously. In addition while walking, states had left leg pain last 2 days. Evaluated anterior carter region. No calf pain. No swelling. No erythema. Discussed monitoring symptoms. Low suspicion for any fracture or DVT at this time. She started on cefdinir along with Tylenol and first dose in the ED. Discussed return precautions. Daughter will be at home with the patient monitoring. Of note, toxicology screen did not get resulted due to downtime, discussed with daughter can make sure lab draws and checks, she did admit to Adderall, discussed there is possible opiate findings however she is also on Suboxone. Daughter states would not change plan of care at this time therefore she did not want to wait for this. She be discharged with outpatient follow-up. All questions were answered. Re-evaluation: stable Disposition discussed with patient/family/significant other: Patient and daughter Case discussed with consulting clinician: N/A This note was generated with picsell dictation software. It may contain incorrectwords, spelling, and punctuation that were not noted in checking the note beforesigning. Radiography Diagnostic Testing: Clinical Impression(s) from Imaging Studies Brain CT 01/14/24 15:50 IMPRESSION: Normal unenhanced CT scan of the brain. Electronically Signed: Vish Rodriguez MD at 16:24 EDT , Chest X-Ray 01/14/24 16:00 IMPRESSION: Patchy airspace density in both lung bases worse on the left suggestive of atelectasis or infiltrate. Consider further evaluation with CT of the chest. Electronically Signed: Vish Rodriguez MD at 17:15 EDT , Discharge Plan Triage Chief Complaint: Overdose ED Provider: Sixto Holloway Dx/Rx/DC Orders Clinical Impression: Overdose, COPD (chronic obstructive pulmonary disease), Pneumonia Instructions: ED Overdose, Opiate, ED Pneumonia (Adult) Prescriptions: New cefdinir 300 mg capsule 300 mg PO Q12H Qty: 14 0RF No Action gabapentin [Neurontin] 800 mg tablet 800 mg PO .qid buprenorphine-naloxone [Suboxone] 4-1 mg film 1 film SUBLINGUAL .COMPLEX Patient Comments: 1 film SUBLINGUAL in the morning, half film in PM Rx Instructions: 1 film SUBLINGUAL in the morning, half film in PM atorvastatin [Lipitor] 80 mg tablet 80 mg PO DAILY lorazepam [Ativan] 0.5 mg tablet 0.5 mg PO TID cholecalciferol (vitamin D3) 50,000 unit capsule 50,000 unit PO QWEEK Latuda 60 mg tablet 60 mg PO DAILY Rx Instructions: must administer with food (at least 350 calories) baclofen 10 mg tablet 10 mg PO QHS PRN (Reason: muscle spasm) ipratropium-albuterol 0.5 mg-3 mg(2.5 mg base)/3 mL solution for nebulization 3 ml inhalation Q4H PRN PRN (Reason: SOB &/OR WHEEZING) Qty: 180 6RF (DME) PEP device See Rx Instructions .ROUTE .MEDSUPPLY Qty: 1 0RF Rx Instructions: with training Kerri Magdalenophere 160-9-4.8 mcg/actuation HFA aerosol inhaler 2 inh inhalation BID Qty: 10.7 6RF (DME) PEP device See Rx Instructions .ROUTE .MEDSUPPLY Qty: 1 0RF Rx Instructions: with training amitriptyline 50 MG tablet 100 mg PO QHS (DME) Nebulizer Compressor See Rx Instructions .ROUTE .MEDSUPPLY Qty: 1 0RF Rx Instructions: As directed Primary Care Provider: Sammy Zabala NP Referrals: Sammy Zabala HOUSE CALLS NURSE PRACTITIONER, HOUSE CALLS NURSE PRACTITIONER-C [Primary Care Provider] - 3-5 Days Activity Restrictions/Additional Instructions: For overdose now back to normal. Suspect opiate related. Questionable pneumonia on x-ray. You are stable on her 2 L oxygen. Take antibiotic as prescribed. Head CT negative. Follow-up with your doctor. Symptoms clinicallyworsens or worsening breathing issues, return to the ED for reevaluation. Disposition Disposition: Home, Self Care What to do if you have Problems For any increased pain, shortness of breath, bleeding, nausea or vomiting, chestpain, or any unexpected problems, contact your Primary Care Provider. Call [facility] ([phone]) or report to the closest Emergency Room. Call 911 if necessary. 01/14/241746 <Electronically signed by Sixto Harry> Cosigner Signature (if applicable): CC: HOUSE CALLS NURSE PRACTITIONER-C Sammy Zabala ~ Signed [facility] Work Phone: [phone] 432-733807-28-2023 Discharge summary Date of Service 05/31/2023 Discharge Diagnosis Metabolic encephalopathy (G93.41 - ICD-10-CM) Hypo-osmolality and hyponatremia (E87.1 - ICD-10-CM) Altered mental status, unspecified (R41.82 - ICD-10-CM) Anxiety disorder, unspecified (F41.9 - ICD-10-CM) Depression, unspecified (F32.A - ICD-10-CM) Elevated white blood cell count, unspecified (D72.829 - ICD-10-CM) Chronic obstructive pulmonary disease, unspecified (J44.9 - ICD-10-CM) Poisoning by amphetamines, accidental (unintentional), initial encounter (T43.621A - ICD-10-CM) Opioid abuse, uncomplicated (F11.10 - ICD-10-CM) COPD (J44.9 - ICD-10-CM) Drug abuse (F19.10 - ICD-10-CM) Metabolic encephalopathy (G93.41 - ICD-10-CM) Tobacco use (Z72.0 - ICD-10-CM) Additional Orders: Other status: Ativan,Start: 05/30/23 17:15:00 EDT, Dose = 0.5 mg, = 0.25 mL, IV Push, Once, Stop: 05/30/23 17:15:00 EDT, 05/30/23 17:07:00 EDT(Complete) Other status: BMP,05/31/23 5:00:00 EDT, Next AM Draw (one day only), Blood, Once, Preferred Lab: [facility], Stop date 05/31/23 5:00:00 EDT(Complete) Other status: CBC,05/31/23 5:00:00 EDT, Next AM Draw (one day only), Blood, Once, Preferred Lab: [facility], Stop date 05/31/23 5:00:00 EDT(Complete) Ordered: Communication Order (continuous),05/30/23 17:37:00 EDT, RIGHT TO HOLD. patient is indecisional and unable to safely leave., Constant order Ordered: Discharge,05/31/23 9:26:00 EDT, Discharged to: Home Ordered: Discharge Activity,NO activity restrictions, 05/31/23 9:26:00 EDT Ordered: Discharge Diet,No changes were made to your diet during your hospital stay. Please resume your pre hospitalization diet on discharge., 05/31/23 9:26:00 EDT Other status: Magnesium Level,05/31/23 5:00:00 EDT, Next AM Draw (one day only), Blood, Once, Preferred Lab: [facility], Stop date 05/31/23 5:00:00 EDT(Complete) Hospital Course 62-year-old female with past medical history significant for chronic respiratory failure requiring 4 L, COPD, hepatitis C, neuropathy, interstitial lung disease, lung nodule, thyroid nodule anxiety/depression,, narcotic dependence on Suboxone for 17 years. Patient presented to [facility] emergency department on 05/28/2023 via EMS with altered mentalstatus. Drug screen positive for amphetamine, marijuana, TCA. CT head was degraded by motion. She was subsequently transferred to [facility] and admitted for further evaluation. She was initially treated with antibiotics due to concern for UTI and pneumonia. Atypicals were checked and negative. Doxycycline was discontinued. Patient does have a history of COPD. She had no increased sputum production. No fevers, lungs were clear and she had no need for supplemental oxygen therefore ceftriaxone was discontinued. On 05/30/[address] was completed as first CT was motion degraded. There was still motion with the second CT. Patient was more alert and responsive during the day and then in the evening she became very agitated and a hold order was placed as she was trying to leave AMA. Patient was not decisional at the time. On day of discharge patients mentation had returned to baseline. All of her labs were unremarkable. She was afebrile and hemodynamically stable. Patient is medically optimized for discharge home. Allergies NKA Consults Consult to Occupational Therapy - Ordered -- 05/30/23 14:43:00 EDT, Once, Routine Imaging Results and Diagnostics CT Head or Brain w/o Contrast Result Date: May 30, 2023 Verified By: CHYNA SMITH MD CLINICAL STATEMENT: IMPRESSION: No acute intracranial abnormality identified within limitations of a motiondegraded evaluation. Objective Vitals and Measurements T: 36.4 C (Oral) TMIN: 36.4 C (Oral) TMAX: 37.0 C (Oral) HR: 71 RR: 16 BP: 170/79 SpO2: 92% Weight Dosing Weight: 81.6 kg (05/28/23) GEN: Appears chronically ill EYES: No conjunctival erythema, drainage. EOMI EARS: Hearing grossly intact. NOSE: No nasal discharge. THROAT: Oral cavity and pharynx pink and moist. CHEST: Normal S1 and S2. Rhythm is regular. Clear to auscultation, without rales, rhonchi, wheezing. ABD: Positive bowel sounds x 4 quads. Soft, nondistended, nontender. EXT: No significant deformity or joint abnormality. No edema. Peripheral pulses intact. NEURO: Sensation grossly intact SKIN: Skin color normal PSYCH: The mental examination revealed the patient was alert and oriented x 4 Code Status Code Status - Ordered -- 05/28/23 23:17:00 EDT, Full Code, Constant Order Admission Date 05/28/2023 Discharge Date 05/31/2023 Patient Instructions You were admitted for metabolic encephalopathy related to Drug use. Your drug screen was positive for amphetamines, cannabinoids, TCA. The TCA is expected due to your prescription for amitriptyline. You had a CAT scan of your head which was negative. You were very confused initially. Your mentationhas returned to baseline on day of discharge. Please plan to follow-up with your PCP within 7 days. Medications Changed FLUoxetine (FLUoxetine 20 mg oral capsule)1 cap by mouth once a day. hydrOXYzine (hydrOXYzine hydrochloride 25 mg oral tablet)1 tab(s) by mouth two (2) times a day as needed anxiety. Unchanged albuterol (Ventolin HFA MDI (90 mcg/inh) inhalation aerosol)2 puff(s) by inhalation every 4 hours as needed as needed for wheezing. albuterol-ipratropium (albuterol-ipratropium 2.5 mg-0.5 mg/3 mL inhalation solution)3 Milliliter byinhalation every 4 hours as needed as needed for shortness of breath or wheezing. amitriptyline (amitriptyline 100 mg oral tablet)1 tab(s) by mouth daily at bedtime. baclofen (baclofen 10 mg oral tablet)1 tab(s) by mouth daily at bedtime. buprenorphine-naloxone (Suboxone 2 mg-0.5 mg sublingual film)1 Each under the tongue three (3) times a day. gabapentin1,200 Milligram by mouth three (3) times a day. lurasidone (lurasidone 40 mg oral tablet)1 tab(s) by mouth once a day. Follow Up Follow Up with COTY OLSEN APRN-MALGORZATA When Within 1-2 days Where: [address] [facility] [place] [address] [phone] Discharge Diet Discharge Diet - Ordered -- No changes were made to your diet during your hospital stay. Please resume your pre hospitalization diet on discharge., 05/31/23 9:26:00 EDT Discharge Activity Discharge Activity - Ordered -- NO activity restrictions, 05/31/23 9:26:00 EDT Condition on Discharge Stable Readmission Risk/Palliative Score LACE Score: 9 (05/29/23 12:13:00) Palliative Total Score: 2 (05/29/23 12:13:00) Discharge Disposition Home Information Provided To Patient Time Spent 33 minutes Digitally Signed by SHARI OSULLIVAN APRN-LOOM STOP CHECKER on 05/31/2023 11:03 AM [id number] Discharge instructions Patient Education 05/31/2023 09:32:24 Chronic Obstructive Pulmonary Disease, Buvq-gf-Zehd Chronic Obstructive Pulmonary Disease Chronic obstructive pulmonary disease (COPD) is a long-term (chronic) lung problem. When you have COPD, it is hard for air to get in and out of your lungs. Usually the condition gets worse over time,and your lungs will never return to normal. There are things you can do to keep yourself as healthyas possible. Your doctor may treat your condition with: ?Medicines. ?Oxygen. ?Lung surgery. Your doctor may also recommend: ?Rehabilitation. This includes steps to make your body work better. It may involve a team of specialists. ?Quitting smoking, if you smoke. ?Exercise and changes to your diet. ?Comfort measures (palliative care). Follow these instructions at home: Medicines Take hlji-bxq-zgqzbvi and prescription medicines only as told by your doctor. Talk to your doctor before taking any cough or allergy medicines. You may need to avoid medicines that cause your lungs to be dry. Lifestyle If you smoke, stop. Smoking makes the problem worse. If you need help quitting, ask your doctor. Avoid being around things that make your breathing worse. This may include smoke, chemicals, and fumes. Stay active, but remember to rest as well. Learn and use tips on how to relax. Make sure you get enough sleep. Most adults need at least 7 hours of sleep every night. Eat healthy foods. Eat smaller meals more often. Rest before meals. Controlled breathing Learn and use tips on how to control your breathing as told by your doctor. Try: Breathing in (inhaling) through your nose for 1 second. Then, pucker your lips and breath out (exhale) through your lips for 2 seconds. Putting one hand on your belly (abdomen). Breathe in slowly through your nose for 1 second. Your hand on your belly should move out. Pucker your lips and breathe out slowly through your lips. Your hand on your belly should move in as you breathe out. Controlled coughing Learn and use controlled coughing to clear mucus from your lungs. Follow these steps: 1.Lean your head a little forward. 2.Breathe in deeply. 3.Try to hold your breath for 3 seconds. 4.Keep your mouth slightly open while coughing 2 times. 5.Spit any mucus out into a tissue. 6.Rest and do the steps again 1 or 2 times as needed. General instructions Make sure you get all the shots (vaccines) that your doctor recommends. Ask your doctor about a flushot and a pneumonia shot. Use oxygen therapy and pulmonary rehabilitation if told by your doctor. If you need home oxygen therapy, ask your doctor if you should buy a tool to measure your oxygen level (oximeter). Make a COPD action plan with your doctor. This helps you to know what to do if you feel worse than usual. Manage any other conditions you have as told by your doctor. Avoid going outside when it is very hot, cold, or humid. Avoid people who have a sickness you can catch (contagious). Keep all follow-up visits as told by your doctor. This is important. Contact a doctor if: You cough up more mucus than usual. There is a change in the color or thickness of the mucus. It is harder to breathe than usual. Your breathing is faster than usual. You have trouble sleeping. You need to use your medicines more often than usual. You have trouble doing your normal activities such as getting dressed or walking around the house. Get help right away if: You have shortness of breath while resting. You have shortness of breath that stops you from: ?Being able to talk. ?Doing normal activities. Your chest hurts for longer than 5 minutes. Your skin color is more blue than usual. Your pulse oximeter shows that you have low oxygen for longer than 5 minutes. You have a fever. You feel too tired to breathe normally. Summary Chronic obstructive pulmonary disease (COPD) is a long-term lung problem. The way your lungs work will never return to normal. Usually the condition gets worse over time. There are things you can do to keep yourself as healthy as possible. Take xhtv-xsd-tujhdup and prescription medicines only as told by your doctor. If you smoke, stop. Smoking makes the problem worse. This information is not intended to replace advice given to you by your health care provider. Make sure you discuss any questions you have with your health care provider. Document Released: 04/08/2009 Document Revised: 10/03/2018 Document Reviewed: 11/25/2017 [employer] Patient Education 2020 [employer] Follow Up Care 05/28/2023 22:28:58 With:SAMANTHACOTY ABRAHAM PLUMBER'S ASSISTANT-LOOM STOP CHECKER Address: [address] [place] [address]- [phone] When:1-2 days [facility] 07-28-2023 Discharge summary Date of Service 05/31/2023 Discharge Diagnosis Metabolic encephalopathy (G93.41 - ICD-10-CM) Hypo-osmolality and hyponatremia (E87.1 - ICD-10-CM) Altered mental status, unspecified (R41.82 - ICD-10-CM) Anxiety disorder, unspecified (F41.9 - ICD-10-CM) Depression, unspecified (F32.A - ICD-10-CM) Elevated white blood cell count, unspecified (D72.829 - ICD-10-CM) Chronic obstructive pulmonary disease, unspecified (J44.9 - ICD-10-CM) Poisoning by amphetamines, accidental (unintentional), initial encounter (T43.621A - ICD-10-CM) Opioid abuse, uncomplicated (F11.10 - ICD-10-CM) COPD (J44.9 - ICD-10-CM) Drug abuse (F19.10 - ICD-10-CM) Metabolic encephalopathy (G93.41 - ICD-10-CM) Tobacco use (Z72.0 - ICD-10-CM) Additional Orders: Other status: Ativan,Start: 05/30/23 17:15:00 EDT, Dose = 0.5 mg, = 0.25 mL, IV Push, Once, Stop: 05/30/23 17:15:00 EDT, 05/30/23 17:07:00 EDT(Complete) Other status: BMP,05/31/23 5:00:00 EDT, Next AM Draw (one day only), Blood, Once, Preferred Lab: [facility], Stop date 05/31/23 5:00:00 EDT(Complete) Other status: CBC,05/31/23 5:00:00 EDT, Next AM Draw (one day only), Blood, Once, Preferred Lab: [facility], Stop date 05/31/23 5:00:00 EDT(Complete) Ordered: Communication Order (continuous),05/30/23 17:37:00 EDT, RIGHT TO HOLD. patient is indecisional and unable to safely leave., Constant order Ordered: Discharge,05/31/23 9:26:00 EDT, Discharged to: Home Ordered: Discharge Activity,NO activity restrictions, 05/31/23 9:26:00 EDT Ordered: Discharge Diet,No changes were made to your diet during your hospital stay. Please resume your pre hospitalization diet on discharge., 05/31/23 9:26:00 EDT Other status: Magnesium Level,05/31/23 5:00:00 EDT, Next AM Draw (one day only), Blood, Once, Preferred Lab: [facility], Stop date 05/31/23 5:00:00 EDT(Complete) Hospital Course 62-year-old female with past medical history significant for chronic respiratory failure requiring 4 L, COPD, hepatitis C, neuropathy, interstitial lung disease, lung nodule, thyroid nodule anxiety/depression,, narcotic dependence on Suboxone for 17 years. Patient presented to [facility] emergency department on 05/28/2023 via EMS with altered mentalstatus. Drug screen positive for amphetamine, marijuana, TCA. CT head was degraded by motion. She was subsequently transferred to [facility] and admitted for further evaluation. She was initially treated with antibiotics due to concern for UTI and pneumonia. Atypicals were checked and negative. Doxycycline was discontinued. Patient does have a history of COPD. She had no increased sputum production. No fevers, lungs were clear and she had no need for supplemental oxygen therefore ceftriaxone was discontinued. On 05/30/[address] was completed as first CT was motion degraded. There was still motion with the second CT. Patient was more alert and responsive during the day and then in the evening she became very agitated and a hold order was placed as she was trying to leave AMA. Patient was not decisional at the time. On day of discharge patients mentation had returned to baseline. All of her labs were unremarkable. She was afebrile and hemodynamically stable. Patient is medically optimized for discharge home. Allergies NKA Consults Consult to Occupational Therapy - Ordered -- 05/30/23 14:43:00 EDT, Once, Routine Imaging Results and Diagnostics CT Head or Brain w/o Contrast Result Date: May 30, 2023 Verified By: CHYNA SMITH MD CLINICAL STATEMENT: IMPRESSION: No acute intracranial abnormality identified within limitations of a motiondegraded evaluation. Objective Vitals and Measurements T: 36.4 C (Oral) TMIN: 36.4 C (Oral) TMAX: 37.0 C (Oral) HR: 71 RR: 16 BP: 170/79 SpO2: 92% Weight Dosing Weight: 81.6 kg (05/28/23) GEN: Appears chronically ill EYES: No conjunctival erythema, drainage. EOMI EARS: Hearing grossly intact. NOSE: No nasal discharge. THROAT: Oral cavity and pharynx pink and moist. CHEST: Normal S1 and S2. Rhythm is regular. Clear to auscultation, without rales, rhonchi, wheezing. ABD: Positive bowel sounds x 4 quads. Soft, nondistended, nontender. EXT: No significant deformity or joint abnormality. No edema. Peripheral pulses intact. NEURO: Sensation grossly intact SKIN: Skin color normal PSYCH: The mental examination revealed the patient was alert and oriented x 4 Code Status Code Status - Ordered -- 05/28/23 23:17:00 EDT, Full Code, Constant Order Admission Date 05/28/2023 Discharge Date 05/31/2023 Patient Instructions You were admitted for metabolic encephalopathy related to Drug use. Your drug screen was positive for amphetamines, cannabinoids, TCA. The TCA is expected due to your prescription for amitriptyline. You had a CAT scan of your head which was negative. You were very confused initially. Your mentationhas returned to baseline on day of discharge. Please plan to follow-up with your PCP within 7 days. Medications Changed FLUoxetine (FLUoxetine 20 mg oral capsule)1 cap by mouth once a day. hydrOXYzine (hydrOXYzine hydrochloride 25 mg oral tablet)1 tab(s) by mouth two (2) times a day as needed anxiety. Unchanged albuterol (Ventolin HFA MDI (90 mcg/inh) inhalation aerosol)2 puff(s) by inhalation every 4 hours as needed as needed for wheezing. albuterol-ipratropium (albuterol-ipratropium 2.5 mg-0.5 mg/3 mL inhalation solution)3 Milliliter byinhalation every 4 hours as needed as needed for shortness of breath or wheezing. amitriptyline (amitriptyline 100 mg oral tablet)1 tab(s) by mouth daily at bedtime. baclofen (baclofen 10 mg oral tablet)1 tab(s) by mouth daily at bedtime. buprenorphine-naloxone (Suboxone 2 mg-0.5 mg sublingual film)1 Each under the tongue three (3) times a day. gabapentin1,200 Milligram by mouth three (3) times a day. lurasidone (lurasidone 40 mg oral tablet)1 tab(s) by mouth once a day. Follow Up Follow Up with COTY OLSEN When Within 1-2 days Where: [address] [facility] [place] [address] [phone] Discharge Diet Discharge Diet - Ordered -- No changes were made to your diet during your hospital stay. Please resume your pre hospitalization diet on discharge., 05/31/23 9:26:00 EDT Discharge Activity Discharge Activity - Ordered -- NO activity restrictions, 05/31/23 9:26:00 EDT Condition on Discharge Stable Readmission Risk/Palliative Score LACE Score: 9 (05/29/23 12:13:00) Palliative Total Score: 2 (05/29/23 12:13:00) Discharge Disposition Home Information Provided To Patient Time Spent 33 minutes Digitally Signed by SHARI OSULLIVAN on 05/31/2023 11:03 AM [id number] Note Discharge Instructions Thank you for allowing [facility] to assist you with your healthcare needs. The following is importantdischarge information regarding your hospital visit. Your Care Team COTY OLSEN Your Diagnosis COPD Drug abuse Metabolic encephalopathy Tobacco use What to do next Instructions From Your Doctor You were admitted for metabolic encephalopathy related to Drug use. Your drug screen was positive for amphetamines, cannabinoids, TCA. The TCA is expected due to your prescription for amitriptyline. You had a CAT scan of your head which was negative. You were very confused initially. Your mentationhas returned to baseline on day of discharge. Please plan to follow-up with your PCP within 7 days. Follow Up Appointments Follow Up with COTY OLSEN When Within 1-2 days Where: 0 [facility] [place] [address] [phone] The Following Activity and Diet Have Been Ordered for You Discharge Activity - Ordered -- NO activity restrictions, 05/31/23 9:26:00 EDT Discharge Diet - Ordered -- No changes were made to your diet during your hospital stay. Please resume your pre hospitalization diet on discharge., 05/31/23 9:26:00 EDT The Following Equipment Has Been Ordered for You No qualifying data available. The Following Treatments Have Been Ordered for You Discharge Labs No qualifying data available. Discharge Radiology No qualifying data available. Other Therapies No qualifying data available. Post Acute Orders No qualifying data available. Someone Will Contact You Regarding These Home Health Referrals No home referrals have been ordered for you. No one will call you. Allergies NKA Medications Please ask your primary doctor or pharmacist before taking any other medication not listed, including over the counter drugs, herbal medications, vitamins and or supplements as they may interact withyour home medications. What How Much When Instructions Last Dose Changed FLUoxetine (FLUoxetine 20 mg oral capsule) 1 cap by mouth Once a day Changed hydrOXYzine (hydrOXYzine hydrochloride 25 mg oral tablet) 1 tab(s) by mouth Two (2) times a day as needed for anxiety Unchanged albuterol (Ventolin HFA MDI (90 mcg/ inh) inhalation aerosol) 2 puff(s) by inhalation Every 4 hours as needed for as needed for wheezing Unchanged albuterol-ipratropium (albuterol-ipratropium 2.5 mg-0.5 mg/ 3 mL inhalation solution) 3 Milliliter by inhalation Every 4 hours as needed for as needed for shortness of breath or wheezing Unchanged amitriptyline (amitriptyline 100 mg oral tablet) 1 tab(s) by mouth Daily at bedtime Unchanged baclofen (baclofen 10 mg oral tablet) 1 tab(s) by mouth Daily at bedtime Unchanged buprenorphine-naloxone (Suboxone 2 mg-0.5 mg sublingual film) 1 Each under the tongue Three (3) times a day Unchanged gabapentin 1,200 Milligram by mouth Three (3) times a day Unchanged lurasidone (lurasidone 40 mg oral tablet) 1 tab(s) by mouth Once a day Please take this list to your next doctor s visit. Bring all medications you take, including over the counter medications, herbals and other supplements with you to your doctor s visit. Patients and families are reminded to discard old lists and to update any records with all medication providers or retail pharmacies. Education Materials Chronic Obstructive Pulmonary Disease Chronic obstructive pulmonary disease (COPD) is a long-term (chronic) lung problem. When you have COPD, it is hard for air to get in and out of your lungs. Usually the condition gets worse over time,and your lungs will never return to normal. There are things you can do to keep yourself as healthyas possible. Your doctor may treat your condition with: ? Medicines. ? Oxygen. ? Lung surgery. Your doctor may also recommend: ? Rehabilitation. This includes steps to make your body work better. It may involve a team of specialists. ? Quitting smoking, if you smoke. ? Exercise and changes to your diet. ? Comfort measures (palliative care). Follow these instructions at home: Medicines Take yefd-voa-fscqpvz and prescription medicines only as told by your doctor. Talk to your doctor before taking any cough or allergy medicines. You may need to avoid medicines that cause your lungs to be dry. Lifestyle If you smoke, stop. Smoking makes the problem worse. If you need help quitting, ask your doctor. Avoid being around things that make your breathing worse. This may include smoke, chemicals, and fumes. Stay active, but remember to rest as well. Learn and use tips on how to relax. Make sure you get enough sleep. Most adults need at least 7 hours of sleep every night. Eat healthy foods. Eat smaller meals more often. Rest before meals. Controlled breathing Learn and use tips on how to control your breathing as told by your doctor. Try: Breathing in (inhaling) through your nose for 1 second. Then, pucker your lips and breath out (exhale) through your lips for 2 seconds. Putting one hand on your belly (abdomen). Breathe in slowly through your nose for 1 second. Your hand on your belly should move out. Pucker your lips and breathe out slowly through your lips. Your hand on your belly should move in as you breathe out. Controlled coughing Learn and use controlled coughing to clear mucus from your lungs. Follow these steps: 1. Lean your head a little forward. 2. Breathe in deeply. 3. Try to hold your breath for 3 seconds. 4. Keep your mouth slightly open while coughing 2 times. 5. Spit any mucus out into a tissue. 6. Rest and do the steps again 1 or 2 times as needed. General instructions Make sure you get all the shots (vaccines) that your doctor recommends. Ask your doctor about a flushot and a pneumonia shot. Use oxygen therapy and pulmonary rehabilitation if told by your doctor. If you need home oxygen therapy, ask your doctor if you should buy a tool to measure your oxygen level (oximeter). Make a COPD action plan with your doctor. This helps you to know what to do if you feel worse than usual. Manage any other conditions you have as told by your doctor. Avoid going outside when it is very hot, cold, or humid. Avoid people who have a sickness you can catch (contagious). Keep all follow-up visits as told by your doctor. This is important. Contact a doctor if: You cough up more mucus than usual. There is a change in the color or thickness of the mucus. It is harder to breathe than usual. Your breathing is faster than usual. You have trouble sleeping. You need to use your medicines more often than usual. You have trouble doing your normal activities such as getting dressed or walking around the house. Get help right away if: You have shortness of breath while resting. You have shortness of breath that stops you from: ? Being able to talk. ? Doing normal activities. Your chest hurts for longer than 5 minutes. Your skin color is more blue than usual. Your pulse oximeter shows that you have low oxygen for longer than 5 minutes. You have a fever. You feel too tired to breathe normally. Summary Chronic obstructive pulmonary disease (COPD) is a long-term lung problem. The way your lungs work will never return to normal. Usually the condition gets worse over time. There are things you can do to keep yourself as healthy as possible. Take auum-wsv-ipotomt and prescription medicines only as told by your doctor. If you smoke, stop. Smoking makes the problem worse. This information is not intended to replace advice given to you by your health care provider. Make sure you discuss any questions you have with your health care provider. Document Released: 04/08/2009 Document Revised: 10/03/2018 Document Reviewed: 11/25/2017 [employer] Patient Education 2020 [employer] Additional Information VACCINATE! IT SAVES LIVES! Members of the community who have not yet received the COVID-19 vaccine and would like to receive it can visit one of [facility] vaccine clinics. There are many vaccine clinic locations within the [facility]. For locations and available times, please visit [email or web address].[place].gov/. It is important to note that some COVID mobile vaccine clinics are held outdoors and may be canceled in rainy or stormy conditions. To learn more about pediatric vaccinations (ages 5-11), we invite you to visit the [facility] webpage. [email or web address] learn more about the COVID-19 vaccine, we invite you to visit the CDC website for a list of frequently asked questions.https://www.cdc.gov/coronavirus/2019-ncov/vaccines/faq.html [facility] Patient Portal Access Instructions: Stay connected with your healthcare team and access your personal medical information anytime with the [facility] Patient Portal. Please follow the directions below to create your [facility] account: 1.Access the email account you provided upon registration to the hospital/physician office.2.Look for an invitation email from [facility].3.Open the email and access the invitation link: AcceptInvitation to [facility].4.Fill in the required dodge to create your account. To access your account, visit [email or web address]. Click the blue button labeled Access Patient Portal and then log in with the username and password that you created in the steps above. You will be able to view your test results, lab results, a summary of your visits, upcoming appointments and more. There is also a convenient messaging option where you can send secure messages to your p [employer]vider. In addition, you will have the ability to download any documents or summaries to your computer and/or send the information securely to a physician. Remember that your healthcare information is confidential, so carefully consider who you will allowto register on the [facility] Patient Portal for access to your information. You can also access the [facility] Patient Portal on the [employer] alberto. Simply click on Patient Portal and then log into your account. If you would like to receive a full copy of your medical records, please contact the [facility] Medical Records Department by calling [phone], Saturday through Saturday between 8 a.m. and 4:30 p.m. HOW TO SAFELY DISPOSE OF PRESCRIPTION MEDICATIONS Please use one of the following methods to safely dispose of your unused medications. 1.Use a drug disposal kit: the drug disposal pouch allows you to safely discard your old and unuseddrugs. Ask your nurse to give you one when you are discharged.2.Visit a local take-back location: Many local pharmacies and police departments have programs that collect old and unwanted prescriptiondrugs. Call your local pharmacy or go to http://[employer]/3Q1Is1w to find one close to you.3.Make use of household items: Use cat litter or old coffee grounds to dispose medications if other options arenot available. Mix your drugs with these household products, seal them in an airtight container andthrow it into the garbage. Call [facility]: [phone] to be sure your drugs can be disposed of in this way. Some medicines may require a different approach.4.Never flush your medications down the toilet. IF YOU HAVE BEEN PRESCRIBED AN OPIOID FOR PAIN If you have been prescribed an opioid (such as hydrocodone, oxycodone or morphine), it is critical to understand the possible side effects and risks of opioid pain medications. Even when taken as directed, opioids can have several side effects including: Tolerance, meaning you might need to take more of a medication for the same pain relief. Nausea, vomiting and/or constipation. Sleepiness, dizziness, dry mouth, confusion, depression or itching. Physical dependence, meaning you have withdrawal symptoms when a medication is stopped, can develop within a few days. KNOW YOUR RESPONSIBILITIES It is important to know exactly how much and how often to take the opioid pain medications you are prescribed. Never take opioids in higher amounts or more often than prescribed. Do not combine opioids with alcohol or other drugs that cause drowsiness, such as benzodiazepines, also known as benzos, including diazepam and alprazolam, muscle relaxants or sleep aids. Never sell or share prescription opioids. This is illegal. Store opioids in a secure place and out of reach of others (including children, family, friends and visitors). The last page of this document has been signed and retained as a CHART COPY. Signatures Patient Education Materials Chronic Obstructive Pulmonary Disease, Qopd-mc-Ufhc Medication Leaflets My discharge plan and instructions have been reviewed and explained to me and I,VERO NGO understand my current condition and have read and understand these discharge instructions. I have received a written copy of the plan/instructions. If I have questions, I am aware that I should contact my doctor. Patient/Assistant Controller Signature: Date/Time: Relationship to Patient: Witness Name/Signature: Date/Time: [id number] Note Date of Service 05/30/2023 Chief Complaint Metabolic encephalopathy Subjective 62-year-old female with past medical history significant for chronic respiratory failure requiring 4 L, COPD, hepatitis C, neuropathy, interstitial lung disease, lung nodule, thyroid nodule anxiety/depression,, narcotic dependence on Suboxone for 17 years. Patient presented to [facility] emergency department on 05/28/2023 via EMS with altered mentalstatus. Drug screen positive for amphetamine, marijuana, TCA. CT head was degraded by motion. She was subsequently transferred to [facility] and admitted for further evaluation. Patient has a sitter present in the room with her. Her review of systems is negative. She has no complaints. She does have difficulty making eye contact. She seemed quite surprised when I told her that her drug screen was positive. She is unable to tell me the last thing that she remembers prior tocoming to the hospital. I spoke with her daughter on the phone who states she was in her normal state of health Saturday before she went to work and when she came home she found her mother altered. Objective Vitals and Measurements T: 36.6 C (Oral) TMIN: 36.4 C (Axillary) TMAX: 36.9 C (Oral) HR: 85 RR: 18 BP: 156/87 SpO2: 93% Intake and Output 7AM Yesterday to 7AM Today Intake and Output (Last 24 hours) Intake Administration Information 1600.00 Oral Intake 390.00 Supplement Intake 0.00 Output Urine Voided 250.00 Stool Count 0.00 Urine Count 2.00 Total Summary Total Intake 1990.00 Total Output 250.00 Fluid Balance 1740.00 Physical Exam GEN: Appears chronically ill CHEST: Normal S1 and S2. Rhythm is regular. Clear to auscultation, diminished. ABD: Positive bowel sounds x 4 quads. Soft, nondistended, nontender. EXT: No significant deformity or joint abnormality. No edema. Peripheral pulses intact. NEURO: Sensation grossly intact SKIN: Skin color normal PSYCH: The mental examination revealed the patient was alert and oriented to self. She does know she is in a hospital. Weight Dosing Weight: 81.6 kg (05/28/23) Medications Medications (9) Active Scheduled: (2) buprenorphine-naloxone 8 mg-2 mg sublingual TABLET 1 tab(s), Sublingual, TID heparin 5,000 units/mL (1 mL) vial 5,000 unit(s) 1 mL, Subcutaneous, q8h Continuous: (1) Lactated Ringers 1,000 mL 1,000 mL, Intravenous, 100 mL/hr PRN: (6) acetaminophen 325 mg Tablet 650 mg 2 tab(s), Oral, q4h albuterol - ipratropium 2.5 mg-0.5 mg/3 mL Inhal Thao UD 3 mL, Inhalation, q6hRT melatonin 3 mg tablet 3 mg 1 tab(s), Oral, qHS melatonin 3 mg tablet 3 mg 1 tab(s), Oral, qHS ondansetron 2 mg/ 1 mL 2 mL INJ 4 mg 2 mL, IV Push, q4h polyethylene glycol 3350 - UD packet 17 gram(s) 15 mL, Oral, qDay Lab Results 05/30 08:30 Glucose Level: 129 H Sodium Level: 146 H Potassium Level: 3.3 L BUN: 12.0 Creatinine Lvl (s): 0.53 05/29 05:05 WBC: 10.0 Hgb: 14.4 Hct: 43.2 Platelet: 211 Neutrophil %: 65.0 Glucose Level: 105 Sodium Level: 146 H Potassium Level: 3.5 BUN: 14.0 Creatinine Lvl (s): 0.57 Imaging Results and Diagnostics CT Head or Brain w/o Contrast Result Date: May 30, 2023 Verified By: CHYNA SMITH MD CLINICAL STATEMENT: IMPRESSION: No acute intracranial abnormality identified within limitations of a motiondegraded evaluation. Assessment/Plan Orders: Admit to Inpatient Metabolic encephalopathy patient has a history of substance dependence and has been prescribed Suboxone for the past 17 years. Her urine tox screen was positive for TCA, cannabis, amphetamines. She is prescribed amitriptyline 100 mg nightly as needed. She last had that filled on 05/22/2023. She alsohad her Suboxone filled that day. OARRS report reviewed. She has not prescribed medical marijuana, nor is she prescribed amphetamines. Patient is not oriented to time or place. She does know that sheis in the hospital but she believes she is in [facility]. She stated it was April 2023. I spoke with her daughter over the phone. She is normally completely alert and oriented. She performs all of her ADLs independently. CPK yesterday was normal at 103. CT head Was repeated due to initial being degraded by motion. Repeat was also abnormal and degraded by motion. Patient's mentation is much improved in the afternoon compared to morning. COPD not in acute exacerbation. There is concern for pneumonia and initiated on ceftriaxone and doxycycline. Yesterday doxycycline was discontinued. Patient has no fever or leukocytosis. No increasedsputum production or consistency. Her lungs are clear to auscultation. She uses supplemental oxygenas needed. She has had adequate oxygen saturations on room air here. Continue as needed DuoNebs. DVT prophylaxis: Subcutaneous heparin Labs, diagnostics, and progress notes reviewed as noted in HPI Code Status: Full code Plan of care discussed with patient. All questions answered. Patient verbalizes understanding is agreeable to plan of care. Also called and spoke with daughter twice. This dictation was performed using voice recognition software and may include grammatical and/or spelling errors. Time Spent 52 minutes was spent in siwx-ej-gwxj time and coordination of care for this patient, including but not limited to personally gathering history, examining the patient, reviewing labs and images and records, counseling patient and/or family about diagnosis and potential workup if applicable, as detailed above as well as discussing the case with patient's interdisciplinary team where applicable. Digitally Signed by SHARI OSULLIVAN on 05/30/2023 03:21 PM [facility] [id number] Note Date of Service 05/30/2023 Chief Complaint Metabolic encephalopathy Subjective 62-year-old female with past medical history significant for chronic respiratory failure requiring 4 L, COPD, hepatitis C, neuropathy, interstitial lung disease, lung nodule, thyroid nodule anxiety/depression,, narcotic dependence on Suboxone for 17 years. Patient presented to [facility] emergency department on 05/28/2023 via EMS with altered mentalstatus. Drug screen positive for amphetamine, marijuana, TCA. CT head was degraded by motion. She was subsequently transferred to [facility] and admitted for further evaluation. Patient has a sitter present in the room with her. Her review of systems is negative. She has no complaints. She does have difficulty making eye contact. She seemed quite surprised when I told her that her drug screen was positive. She is unable to tell me the last thing that she remembers prior tocoming to the hospital. I spoke with her daughter on the phone who states she was in her normal state of health Saturday before she went to work and when she came home she found her mother altered. Objective Vitals and Measurements T: 36.6 C (Oral) TMIN: 36.4 C (Axillary) TMAX: 36.9 C (Oral) HR: 85 RR: 18 BP: 156/87 SpO2: 93% Intake and Output 7AM Yesterday to 7AM Today Intake and Output (Last 24 hours) Intake Administration Information 1600.00 Oral Intake 390.00 Supplement Intake 0.00 Output Urine Voided 250.00 Stool Count 0.00 Urine Count 2.00 Total Summary Total Intake 1990.00 Total Output 250.00 Fluid Balance 1740.00 Physical Exam GEN: Appears chronically ill CHEST: Normal S1 and S2. Rhythm is regular. Clear to auscultation, diminished. ABD: Positive bowel sounds x 4 quads. Soft, nondistended, nontender. EXT: No significant deformity or joint abnormality. No edema. Peripheral pulses intact. NEURO: Sensation grossly intact SKIN: Skin color normal PSYCH: The mental examination revealed the patient was alert and oriented to self. She does know she is in a hospital. Weight Dosing Weight: 81.6 kg (05/28/23) Medications Medications (9) Active Scheduled: (2) buprenorphine-naloxone 8 mg-2 mg sublingual TABLET 1 tab(s), Sublingual, TID heparin 5,000 units/mL (1 mL) vial 5,000 unit(s) 1 mL, Subcutaneous, q8h Continuous: (1) Lactated Ringers 1,000 mL 1,000 mL, Intravenous, 100 mL/hr PRN: (6) acetaminophen 325 mg Tablet 650 mg 2 tab(s), Oral, q4h albuterol - ipratropium 2.5 mg-0.5 mg/3 mL Inhal Thao UD 3 mL, Inhalation, q6hRT melatonin 3 mg tablet 3 mg 1 tab(s), Oral, qHS melatonin 3 mg tablet 3 mg 1 tab(s), Oral, qHS ondansetron 2 mg/ 1 mL 2 mL INJ 4 mg 2 mL, IV Push, q4h polyethylene glycol 3350 - UD packet 17 gram(s) 15 mL, Oral, qDay Lab Results 05/30 08:30 Glucose Level: 129 H Sodium Level: 146 H Potassium Level: 3.3 L BUN: 12.0 Creatinine Lvl (s): 0.53 05/29 05:05 WBC: 10.0 Hgb: 14.4 Hct: 43.2 Platelet: 211 Neutrophil %: 65.0 Glucose Level: 105 Sodium Level: 146 H Potassium Level: 3.5 BUN: 14.0 Creatinine Lvl (s): 0.57 Imaging Results and Diagnostics CT Head or Brain w/o Contrast Result Date: May 30, 2023 Verified By: CHYNA SMITH MD CLINICAL STATEMENT: IMPRESSION: No acute intracranial abnormality identified within limitations of a motiondegraded evaluation. Assessment/Plan Orders: Admit to Inpatient Metabolic encephalopathy patient has a history of substance dependence and has been prescribed Suboxone for the past 17 years. Her urine tox screen was positive for TCA, cannabis, amphetamines. She is prescribed amitriptyline 100 mg nightly as needed. She last had that filled on 05/22/2023. She alsohad her Suboxone filled that day. OARRS report reviewed. She has not prescribed medical marijuana, nor is she prescribed amphetamines. Patient is not oriented to time or place. She does know that sheis in the hospital but she believes she is in [facility]. She stated it was April 2023. I spoke with her daughter over the phone. She is normally completely alert and oriented. She performs all of her ADLs independently. CPK yesterday was normal at 103. CT head Was repeated due to initial being degraded by motion. Repeat was also abnormal and degraded by motion. Patient's mentation is much improved in the afternoon compared to morning. COPD not in acute exacerbation. There is concern for pneumonia and initiated on ceftriaxone and doxycycline. Yesterday doxycycline was discontinued. Patient has no fever or leukocytosis. No increasedsputum production or consistency. Her lungs are clear to auscultation. She uses supplemental oxygenas needed. She has had adequate oxygen saturations on room air here. Continue as needed DuoNebs. DVT prophylaxis: Subcutaneous heparin Labs, diagnostics, and progress notes reviewed as noted in HPI Code Status: Full code Plan of care discussed with patient. All questions answered. Patient verbalizes understanding is agreeable to plan of care. Also called and spoke with daughter twice. This dictation was performed using voice recognition software and may include grammatical and/or spelling errors. Time Spent 52 minutes was spent in eoor-yv-pqff time and coordination of care for this patient, including but not limited to personally gathering history, examining the patient, reviewing labs and images and records, counseling patient and/or family about diagnosis and potential workup if applicable, as detailed above as well as discussing the case with patient's interdisciplinary team where applicable. Digitally Signed by SHARI OSULLIVAN on 05/30/2023 03:21 PM [facility] [id number] Note ORIGINAL EXAMINATION: CT OF THE HEAD WITHOUT CONTRAST 05/30/2023 12:48 pm TECHNIQUE: CT of the head was performed without the administration of intravenous contrast. Automated exposure control, iterative reconstruction, and/or weight based adjustment of the mA/kV was utilized to reduce the radiation dose to as low as reasonably achievable. COMPARISON: 05/28/2023 HISTORY: ORDERING SYSTEM PROVIDED HISTORY: Reason for Exam: confusion, pt offered no other complaints or history, pt appeared wobbly, repeat images attempted due to pt motion confusion FINDINGS: Examination is compromised by motion artifact. No definite acute intracranial hemorrhage, hydrocephalus, or mass effect. Mild asymmetry in the lateral ventricles is considered normal variant. Scattered white matter hypodensities are nonspecific but may represent mild chronic microvascular angiopathy in a patient of this age. Atherosclerotic calcifications are present in the cavernous carotid arteries. A mucous retention cyst or polyp is shown in the right sphenoid sinus. Otherwise, the paranasal sinuses and mastoid air cells appear clear. No acute calvarial abnormality. Left scalp lipoma. IMPRESSION: No acute intracranial abnormality identified within limitations of a motion degraded evaluation. Interpreted by: Chyna Smith MD Preliminary Report By: Chyna Smith MD Electronically signed By Chyna Smith MD Dictated Date: 05/30/2023 1:47:07 PM Prelim Date: 05/30/2023 1:50:24 PM Sign Date: 05/30/2023 1:50:24 PM Ordering Provider: [facility]07-26-2023 Note Date of Service 05/29/2023 Chief Complaint Altered mental status Subjective 62-year-old female with past history of COPD, Vicodin abuse, anxiety, depression. The patient was transferred from [facility] due to altered mental status, I was not able to get any history from the patient but I did speak with her daughter [Robnia] who stated that she started to behave erratically approximately 2 days ago. Robina is not able to give 24-hour supervision due to her and is not sure if she took excess amount of any of her medications. She is also not aware of her doing any illicit drugs. Nursing staff reports that the patient has been agitated and confused. When I saw the patient she could not answer any questions for me. Objective Vitals and Measurements T: 36.2 C (Axillary) TMIN: 35.9 C (Axillary) TMAX: 36.2 C (Axillary) HR: 98 RR: 18 BP: 143/107 SpO2: 95% WT: 81.6 kg Intake and Output 7AM Yesterday to 7AM Today Intake and Output (Last 24 hours) Intake Oral Intake 240.00 Output Total Summary Total Intake 240.00 Total Output 0.00 Fluid Balance 240.00 Physical Exam GENERAL: Agitated adult female laying in bed in no acute respiratory distress. HEENT: Mucous membranes pink and moist NEURO: Agitated, confused CVS: S1 & S2 audible, Regular Rate and Rhythm Weight Dosing Weight: 81.6 kg (05/28/23) Medications Medications (12) Active Scheduled: (3) buprenorphine-naloxone 8 mg-2 mg sublingual TABLET 1 tab(s), Sublingual, TID cefTRIAXone IVP syringe 2 gram(s) 20 mL, IV Push (INT), qDay heparin 5,000 units/mL (1 mL) vial 5,000 unit(s) 1 mL, Subcutaneous, q8h Continuous: (1) Lactated Ringers 1,000 mL 1,000 mL, Intravenous, 100 mL/hr PRN: (8) acetaminophen 325 mg Tablet 650 mg 2 tab(s), Oral, q4h albuterol - ipratropium 2.5 mg-0.5 mg/3 mL Inhal Thao UD 3 mL, Inhalation, q6hRT LORAZEPam 2 mg/mL 1 mL vial 1 mg 0.5 mL, IV Push, q6hr LORAZEPam 2 mg/mL 1 mL vial 1 mg 0.5 mL, IV Push, q4h melatonin 3 mg tablet 3 mg 1 tab(s), Oral, qHS melatonin 3 mg tablet 3 mg 1 tab(s), Oral, qHS ondansetron 2 mg/ 1 mL 2 mL INJ 4 mg 2 mL, IV Push, q4h polyethylene glycol 3350 - UD packet 17 gram(s) 15 mL, Oral, qDay Lab Results 05/29 05:05 WBC: 10.0 Hgb: 14.4 Hct: 43.2 Platelet: 211 Neutrophil %: 65.0 Glucose Level: 105 Sodium Level: 146 H Potassium Level: 3.5 BUN: 14.0 Creatinine Lvl (s): 0.57 EKG Electrocardiogram (EKG) - InProcess -- 05/29/23 11:08:00 EDT Assessment/Plan 1. Metabolic encephalopathy 2. TCA positive 3. Methamphetamine and marijuana abuse 4. Initial concern for pneumonia 5. Electrolyte abnormalities 5. History of COPD, not in exacerbation 6. DVT prophylaxis Plan: At this point in time the patient is encephalopathic. Her drug screen did come back positive for marijuana, TCA and also methamphetamine. The patient does have a prescription for amitriptyline, her daughter is not sure if she took an overdose of this medication. Review of her initial EKG shows thatHer QTc was 484, QRS was 138. I repeated EKG this morning which came back showing that her QRS is within normal parameters and QTc is down to 458 now. It sounds as if the patient's symptoms started approximately 48 hours ago. No need for bicarb as the patient does not have early EKG findings that would warrant this, however I do believe that she needs to be transferred to a stepdown floor with monitor as if she did take excessive amount of amitriptyline she is at at risk for cardiac arrhythmias. Her refill history also shows that she has baclofen, fluoxetine, gabapentin, hydroxyzine. We will continue with IV fluids for now and monitor closely. She is hypochloremic and hyponatremic, will change fluids to lactated Ringer. Get magnesium level Admitting physician had a concern for pneumonia, I did review chest x-ray personally and my suspicion for a pneumonia is not very high, atypicals were negative. Will discontinue doxycycline, continueceftriaxone for now with low threshold for discontinuing antibiotics altogether. Heparin for DVT prophylaxis Digitally Signed by JOSELIN FRANCIS MD on 05/29/2023 11:27 AM [id number] NoteSinus rhythm Abnormal inferior Q waves Borderline prolonged QT interval Electronic Signature: ELMA IRWIN MD 05/30/2023 12:56:05[facility] 07-25-2023 History and physical note Date of Service 05/28/2023 Chief Complaint AMS History of Present Illness 62-year-old female with a history of COPD, vicodin abuse been on Suboxone for 17 years, anxiety depression presents with altered mental status. Patient's family became concerned that she was not acting herself so EMS was called and she was taken to the emergency department at [facility]. Reportedly had been called multiple times and the patient declined until the last time Upon arrival to the emergency supervisor winding department Ct Significantly motion degraded evaluation without a definite acute intracranial abnormality identified. With continued clinical concern, consider repeat examination when patient is better ableto tolerate. Chest x ray Interval appearing left lower lobe discoid atelectasis or infiltrates. UA no nitrites no leuk esterase did have mucus threads given ceftriaxone by the ED physician for concern of UTI CBC borderline leukocytosis with WBC of 10.9 otherwise unremarkable BMP unremarkable CPK unremarkable 119 U tox positive for amphetamines, THC and tricyclic's Report taken by my colleague Dr. De Leon Upon arrival to floor patient is pleasantly confused she knows her name but she does not know whereshe is or the year She does not provide much consistent history recent dc summary Date of Service 04/24/2023 Discharge Diagnosis 1. COPD exacerbation (J44.1 - ICD-10-CM) 2. Shortness of breath ([id number] - PNED) 3. Tobacco use (Z72.0 - ICD-10-CM) Hospital Course Patient is a 62-year-old female, who follows with Coty Olsen MALGORZATA with a past medical history significant for COPD, interstitial lung diseases, and lung nodules, presented to [facility] emergency department with the chief complaint of shortness of breath. Patient states that she has been short of breath for about a week now. About 4 days ago, she felt that the shortness of breath was getting worse. She does wear oxygen at 3L usually just at night but can wear it PRN also. Shedecided to start wearing it at all times when she noted her pulse ox to be in the 70's on room air.Yesterday, she checked her pulse ox on the 3L and noted that it was still in the 80's. She decided to present to the ED for evaluation. Patient denies any fever, chills, chest pain, abdominal pain, nausea or dysuria. She reports a mild nonproductive cough as well as some right chest wall pain. In the emergency department, CTA of the chest revealed no evidence of pulmonary embolism. Patchy and confluent areas of ground-glass opacity with associated interstitial thickening throughout the right greater than left lungs, which could reflect atypical infectious or inflammatory process, including viral pneumonia. EKG revealed sinus rhythm. White blood cell count 11.4 CBC otherwise unremarkable. BMP significant for potassium 3.1. Troponin negative. Patient was administered 1 liter of NS, 1 gram Ceftriaxone IV, 100 mg doxycycline IV, 125 mg solumedrol IV and 50 meq potassium bicarbonate PO in the ED. She was transferred to telemetry for further evaluation and treatment. We will continue ceftriaxone 1 gram IV daily and 500 mg azithromycin PO daily. We will continue solumedrol 60 mg IV q 8 hours. We will continue duonebs as needed and scheduled. We will continue supplemental oxygen as needed to maintain oxygen saturations above 92%. We will obtain urine and check for legionella and strep pneumoniae. We will check mycoplasma antibody and respiratory panel. Repeat CBC and BMP in the am. Review of Systems Review of systems incomplete as patient is confused Physical Exam Vitals and Measurements T: 35.9 C (Axillary) HR: 101 RR: 18 BP: 150/89 SpO2: 93% WT: 81.6 kg Weight Dosing Weight: 81.6 kg (05/28/23) GENERAL:Well nourished ; no acute distress. ASSISTIVE DEVICES: None PSYCHIATRIC: appropriate HEENT moist mucous membranes extraocular muscles intact CARDIOVASCULAR: Regular rate, regular rhythm, no murmurs noted. Notrace lower extremity pitting edema. No lymphedema. Dorsalis Pedis pulses+2/4 blaterally . Posterior Tibialis pulses+2/4 bilaterally . RESPIRATORY: Moderate air entry ABDOMEN soft, no guarding, nontender, nondistended, positive bowel sounds, She is alert and oriented to person only NEURO: Dyskinesia of her labs in both upper extremities DERM: Hyperkeratosis the upper and lower lips Lab Results No 36 Hour Lab Data Assessment/Plan 62-year-old female with a history of COPD, substance abuse on Suboxone, anxiety and depression is presenting with altered mental status second to amphetamine intoxication, currently stable for the general medical floor, she has abnormal chest x-ray concerning for pneumonia we will treat with ceftriaxone and doxycycline, there was concern for UTI however her urinalysis is more consistent with a contamination, will give her IV fluids and monitor her. Amphetamine intoxication monitor IV fluids we will repeat CPK in the morning Abnormal chest x-ray possible pneumonia ceftriaxone doxycycline nebulizer treatments as needed Altered mental status second to above IV fluids antibiotics monitor mentation Substance abuse on Suboxone uncontrolled COPD no evidence of flare we will hold off on steroids Anxiety depression stable Home meds DVT prophylaxis heparin subcu Full code Order rec not yet complete as home meds not yet verified by pharmacist, please reorder as indicatedonce confirmed by pharmacist Problem List/Past Medical History Ongoing Adrenal cortical nodule Breast COPD COPD exacerbation Hx of Hepatitis C , interstitial lung disease, neuropathy Interstitial lung disease Lung nodule, multiple Mediastinal lymphadenopathy Mycoplasma pneumonia RVAT with biopsy of right lung Dr. Rebolledo Supplemental oxygen dependent Thyroid nodule Thyroid nodule greater than or equal to 1.5 cm in diameter incidentally noted on imaging study Historical No qualifying data Procedure/Surgical History Hysterectomy Cholecystectomy Lung biopsy sample Foot section Carpal tunnel Medications Home Medications (10) Active albuterol-ipratropium 2.5 mg-0.5 mg/3 mL inhalation solution 3 mL, PRN, Inhalation, q4h amitriptyline 100 mg oral tablet 100 mg = 1 tab(s), Oral, qHS baclofen 10 mg oral tablet 10 mg = 1 tab(s), Oral, qHS FLUoxetine 20 mg oral capsule 20 mg = 1 cap(s), Oral, qDay FLUoxetine 40 mg oral capsule 40 mg = 1 cap(s), Oral, qDay gabapentin 1,200 mg, PO, TID hydrOXYzine hydrochloride 25 mg oral tablet 25 mg = 1 tab(s), Oral, qHS lurasidone 40 mg oral tablet 40 mg = 1 tab(s), Oral, qDay Suboxone 8 mg-2 mg sublingual film 1 EA, Sublingual, TID Ventolin HFA MDI (90 mcg/inh) inhalation aerosol 2 puff(s), PRN, Inhalation, q4h Allergies NKA Social History Smoking Status - 04/23/2015 Current every day smoker Alcohol Use: Never., 04/22/2023 Home/Environment Domestic Concerns: None. Living situation: Home/Independent. Lives In: Single level home. Current Home Treatments Nebulizer treatments, Oxygen therapy. Professional Skilled Services or Special Community Resources None., 04/22/2023 Nutrition/Health Type of diet: Regular. Appetite Poor. Eating Difficulties None., 04/22/2023 Sexual Self described orientation: Straight or heterosexual., 04/22/2023 Substance Abuse Use: Current. Type: Prescription medications, Suboxone., 04/22/2023 Use: Past. Type: Prescription medications., 04/05/2019 Tobacco Tobacco Use: 10 or more cigarettes (1/2 pack or more)/day in last 30 days. Previous treatment: Medications, Nicotine replacement. Ready to change: Yes., 04/05/2019 Family History Diabetes mellitus: Father and Sister. HTN - Hypertension: Mother. Heart disease: Mother. Immunizations No qualifying data available. Code Status Code Status - Ordered -- 05/28/23 23:17:00 EDT, Full Code, Constant Order Digitally Signed by CURTIS DARLING MD on 05/28/2023 11:42 PM Digitally Signed by CURTIS DARLING MD on 05/29/2023 12:52 AM [facility] [id number] Evaluation + Plan noteExtracted from: Title:History and Physical Author:CURTIS DARLING Date:05/28/23 62-year-old female with a hi story of COPD, substance abuse on Suboxone, anxiety and depression is presenting with altered mental status second to amphetamine intoxication, currently stable for the general medical floor, she has abnormal chest x-ray concerning for pneumonia we will treat with ceftriaxone and doxycycline, there was concern for UTI however her urinalysis is more consistent with a contamination, will give her IV fluids and monitor her. Amphetamine intoxication monitor IV fluids we will repeat CPK in the morning Abnormal chest x-ray possible pneumonia ceftriaxone doxycycline nebulizer treatments as needed Altered mental status second to above IV fluids antibiotics monitor mentation Substance abuse on Suboxone uncontrolled COPD no evidence of flare we will hold off on steroids Anxiety depression stable Home meds DVT prophylaxis heparin subcu Full code Order rec not yet complete as home meds not yet verified by pharmacist, please reorder as indicated once confirmed by pharmacist Future Scheduled Tests Laboratory* Thyroid Antibodies 05/03/23 * Thyroid Stimulating Hormone 05/03/23 * Free T4 05/03/23 * Complete Blood Count 05/03/23 * Total T3 05/03/23 * Complete Metabolic Panel 05/03/23 Radiology* XR Chest 2 Views (PA & Lateral) 05/06/23 * US Thyroid 05/03/23 [facility] 05-11-2023 Hospital Discharge instructions Patient Education 03/14/2023 18:33:04 COPD Flare COPD Flare You have had a flare-up of your COPD. COPD (chronic obstructive pulmonary disease) is a common lung disease. It causes your airways to get irritated and narrower. This makes it harder for you to breathe. Emphysema and chronic bronchitis are both types of COPD. This is a long-term (chronic) condition. This means you always have it. Sometimes it gets worse. When this happens, it is called a flare-up. Symptoms of COPD People with COPD may have symptoms most of the time. In a flare-up, your symptoms get worse. These symptoms may mean you are having a flare-up: Shortness of breath, shallow or rapid breathing, or wheezing that gets worse Lung infection Cough that gets worse More mucus, thicker mucus or mucus of a different color Tiredness, less energy, or trouble doing your normal activities Fever Chest tightness Your symptoms don t get better even when you use your normal medicines, inhalers, and nebulizer Trouble talking You feel confused Causes of flare-ups Unfortunately, a flare-up can happen even if you did everything right. And even if you followed your healthcare provider s instructions. Some causes of flare- ups are: Smoking or secondhand smoke Colds, the flu, or respiratory infections Air pollution Sudden change in the weather Dust, irritating chemicals, or strong fumes Not taking your medicines as prescribed Home care Here are some things you can do at home to treat a flare-up: Try not to panic. This makes it harder to breathe, and keeps you from doing the right things. Don t smoke or be around others who are smoking. Try to drink more fluids than normal during a flare-up, unless your healthcare provider has told you not to because of heart and kidney problems. More fluids can help loosen the mucus. Use your inhalers and nebulizer, if you have one, as you have been told to. If you were given antibiotics, take them until they are used up or your provider tells you to stop.It s important to finish the antibiotics, even though you feel better. This will make sure the infection has cleared. If you were given prednisone or another steroid, finish it even if you feel better. Preventing a flare-up Flare-ups happen. But the best way to treat one is to prevent it before it starts. Here are some pointers: Don t smoke or be around others who are smoking. Take your medicines as discussed with your healthcare provider. Talk with your provider about getting a flu shot every year. Also find out if you need a pneumonia shot. If there is a weather advisory warning to stay indoors, try to stay inside when possible. Try to eat healthy, exercise, and get plenty of sleep. Try to stay away from things that normally set you off. These include dust, chemical fumes, hairsprays, or strong perfumes. Follow-up care Follow up with your healthcare provider, or as advised. If a culture was done, you will be told if your treatment needs to be changed. You can call as directed for the results. If X-rays were done, you will be told of any new findings that may affect your care. Call 911 Call 911 if any of these occur: You have trouble breathing You feel confused or it s hard to wake you up You faint or lose consciousness You have a rapid heart rate You have new pain in your chest, arm, shoulder, neck, or upper back When to seek medical advice Call your healthcare provider right away if any of these occur: Wheezing or shortness of breath gets worse You need to use your inhalers more often than normal without relief Fever of 100.4 F (38 C) or higher, or as directed by your healthcare provider Coughing up lots of dark-colored or bloody mucus (sputum) Chest pain with each breath You don't start to get better within 24 hours Swelling of your ankles gets worse Dizziness or weakness [id number] [email or web address]. [address] [place] [address]234. All rights reserved. This information is not intended as a substitute for professional medical care. Always follow yourhealthcare professional's instructions. Follow Up Care 03/14/2023 17:48:55 With:Saundra Wyman [phone] Address: When:2-4 days With:COTY OLSEN Address: [address] [place] [phone] When:2-4 days [facility] 05-11-2023 Note Discharge Instructions Thank you for allowing [facility] to assist you with your healthcare needs. The following is importantdischarge information regarding your hospital visit. Diagnosis from Today's Visit COPD - Chronic obstructive pulmonary disease Acute exacerbation of COPD SOB - Shortness of breath What to Do Next Instructions from Your Care Team No qualifying data available. Post Acute Orders No qualifying data available. You Need to Schedule the Following Appointments Follow Up with Saundra Wyman [phone] When Within 2-4 days Where: Follow Up with COTY OLSEN When Within 2-4 days Where: [address] [place] [phone] Allergies NKA Medications Please ask your primary doctor or pharmacist before taking any other medication not listed, including over the counter drugs, herbal medications, vitamins and or supplements as they may interact withyour home medications. What How Much When Why Instructions Last Dose New azithromycin (Azithromycin 5 Day Dose Pack 250 mgoral tablet) 1 dose by mouth Every day COPD - Chronic obstructive pulmonary disease Acute exacerbation of COPD Duration: 5 Days Pickup at [facility][id number] New predniSONE (prednisone 20mg tab (TAPER)) Taper 60-40-20 mg x 3 days each dose by mouth Every day COPD - Chronic obstructive pulmonary disease Acute exacerbation of COPD Duration: 9 Days Pickup at [facility] #[id number] Unchanged acetaminophen-HYDROcodone ([place] 325- 5 mg oral tablet) 1 tab(s) by mouth Every 6 hours Unchanged acetaminophen-HYDROcodone ([place] 325- 5 mg oral tablet) 1 tab(s) by mouth Every 6 hours Unchanged albuterol 2 puffs q 4-6 h prn sob Unchanged buprenorphine-naloxone (Suboxone 8 mg-2 mg sublingual film) 1 Each under the tongue Two (2) times a day Unchanged gabapentin 800 Milligram by mouth Four (4) times a day Unchanged LORazepam (LORazepam 0.5 mg oral tablet) 1 tab(s) by mouth Two (2) times a day Unchanged Misc Medication 1 tablet by mouth Daily at bedtime Unchanged Misc Medication (anxiety med) 2 tablets by mouth Daily at bedtime Pharmacy Information [facility] #[id number]: [address], [place] [phone] Please take this list to your next doctor s visit. Bring all medications you take, including over the counter medications, herbals and other supplements with you to your doctor s visit. Patients and families are reminded to discard old lists and to update any records with all medication providers or retail pharmacies. Medication Leaflets prednisone (PRED mo Morales What is the most important information I should know about prednisone? You should not use prednisone if you have a fungal infection anywhere in your body. You should not stop using prednisone suddenly. Follow your doctor's instructions about tapering your dose. What is prednisone? Prednisone is a steroid that reduces inflammation in the body, and also suppresses your immune system. Prednisone is used to treat many different conditions such as hormonal disorders, skin diseases, arthritis, lupus, psoriasis, allergic conditions, ulcerative colitis, Crohn's disease, eye diseases, lung diseases, asthma, tuberculosis, blood cell disorders, kidney disorders, leukemia, lymphoma, multi ple sclerosis, organ transplant rejection, swelling from a brain tumor or injury. Prednisone may also be used for purposes not listed in this medication guide. What should I discuss with my healthcare provider before taking prednisone? You should not use prednisone if you are allergic to it, or if you have a fungal infection anywherein your body. Steroid medication can weaken your immune system, making it easier for you to get an infection or worsening an infection you already have. Tell your doctor about any illness or infection you've had within the past several weeks. Tell your doctor if you have ever had: heart problems, high blood pressure, or a heart attack; glaucoma or cataracts; herpes infection of the eyes; past or present tuberculosis; a parasite infection that causes diarrhea (such as threadworms); any illness that causes diarrhea; underactive thyroid; diabetes; a stomach ulcer, diverticulitis; a colostomy or ileostomy; osteoporosis or low bone mineral density (steroid medication can increase your risk of bone loss); low levels of calcium or potassium in your blood; cirrhosis or other liver disease; mental illness or psychosis; or a muscle disorder such as myasthenia gravis. Long-term use of steroids may lead to bone loss (osteoporosis), especially if you smoke or drink alcohol, if you do not exercise, or if you do not get enough vitamin D or calcium in your diet. It is not known whether this medicine will harm an unborn baby. Tell your doctor if you are or plan to become . You should not breastfeed while using prednisone. How should I take prednisone? Follow all directions on your prescription label and read all medication guides or instruction sheets. Your doctor may occasionally change your dose. Use the medicine exactly as directed. Prednisone is taken daily or every other day, depending on the condition being treated. You may need to take the medicine at a certain time of day. Follow your doctor's instructions about when and how often to take this medicine. Take with food if prednisone upsets your stomach. Measure liquid medicine carefully. Use the dosing syringe provided, or use a medicine dose-measuring device (not a kitchen spoon). Swallow the delayed-release tablet whole and do not crush, chew, or break it. Prednisone can weaken (suppress) your immune system, and you may get an infection more easily. Callyour doctor if you have signs of infection (fever, weakness, cold or flu symptoms, skin sores, diarrhea, frequent or recurring illness). If you have major surgery or a severe injury or infection, your prednisone dose needs may change. Make sure any doctor caring for you knows you are using this medicine. If you use this medicine long-term, you may need medical tests and vision exams. In case of emergency, wear or carry medical identification to let others know you use a steroid. You should not stop using prednisone suddenly. Follow your doctor's instructions about tapering your dose. Store at room temperature away from moisture, heat, and light. What happens if I miss a dose? Take the medicine as soon as you can, but skip the missed dose if it is almost time for your next dose. Do not take two doses at one time. What happens if I overdose? Seek emergency medical attention or call the Poison Help line at . High doses or long-term use of prednisone can lead to thinning skin, easy bruising, changes in bodyfat (especially in your face, neck, back, and waist), increased acne or facial hair, menstrual problems, impotence, or loss of interest in sex. What should I avoid while taking prednisone? Do not receive a 'live' vaccine while using prednisone. The vaccine may not work as well and may not fully protect you from disease. Live vaccines include measles, mumps, rubella (MMR), polio, rotavirus, typhoid, yellow fever, varicella (chickenpox), zoster (shingles), and nasal flu (influenza) vaccine. Avoid being near people who are sick or have infections. Call your doctor for preventive treatment if you are exposed to chickenpox or measles. These conditions can be serious or even fatal in peoplewho are using steroid medicine. Avoid drinking alcohol. What are the possible side effects of prednisone? Get emergency medical help if you have signs of an allergic reaction: hives; difficult breathing; swelling of your face, lips, tongue, or throat. Call your doctor at once if you have: muscle pain or weakness; blurred vision, tunnel vision, eye pain, or seeing halos around lights; severe depression, changes in personality, unusual thoughts or behavior; bloody or tarry stools, coughing up blood or vomit that looks like coffee grounds; swelling, rapid weight gain, feeling short of breath; irregular heartbeats; severe headache, pounding in your neck or ears; decreased adrenal gland hormones--muscle weakness, tiredness, diarrhea, nausea, menstrual changes, skin discoloration, craving salty foods, and feeling light- headed; or low potassium level--leg cramps, constipation, irregular heartbeats, fluttering in your chest, increased thirst or urination, numbness or tingling, muscle weakness or limp feeling. Prednisone can affect growth in children. Tell your doctor if your child is not growing at a normalrate while using this medicine. Common side effects may include: weight gain (especially in your face or your upper back and torso); increased appetite; mood changes, trouble sleeping; changes in your menstrual periods; problems with memory or thought; muscle or joint pain; weakness; headache, dizziness, spinning sensation; nausea, bloating, loss of appetite; slow wound healing; or acne, increased sweating, thinning skin, bruising, pinpoint spots under your skin. This is not a complete list of side effects and others may occur. Call your doctor for medical advice about side effects. You may report side effects to FDA at 9-765-FGJ-8442. What other drugs will affect prednisone? Sometimes it is not safe to use certain medications at the same time. Some drugs can affect your blood levels of other drugs you take, which may increase side effects or make the medications less effective. Tell your doctor about all your current medicines. Many drugs can affect prednisone, especially: bupropion; cyclosporine; digoxin; ketoconazole; an antibiotic; control pills or hormone replacement therapy; a diuretic or 'water pill'; insulin or oral diabetes medicine; a blood thinner--warfarin, Coumadin, Jantoven; or NSAIDs (nonsteroidal anti-inflammatory drugs)--aspirin, ibuprofen (Advil, Motrin), naproxen (Aleve), celecoxib, diclofenac, indomethacin, meloxicam, and others. This list is not complete and many other drugs may affect prednisone. This includes prescription and unwf-mtu-awxsglv medicines, vitamins, and herbal products. Not all possible drug interactions are listed here. Where can I get more information? Your pharmacist can provide more information about prednisone. Remember, keep this and all other medicines out of the reach of children, never share your medicines with others, and use this medication only for the indication prescribed. Every effort has been made to ensure that the information provided by [employer] is accurate, up-to-date, and complete, but no guarantee is made to that effect. Drug information contained herein may be time sensitive. [employer] information has been compiled for use by healthcare practitioners and consumers in the [place] and therefore [employer] does not warrant that uses outside of the [place] are appropriate, unless specifically indicated otherwise. [employer] drug information does not endorse drugs, diagnose patients or recommend therapy. [employer] drug information isan informational resource designed to assist licensed healthcare practitioners in caring for their p atients and/or to serve consumers viewing this service as a supplement to, and not a substitute for, the expertise, skill, knowledge and judgment of healthcare practitioners. The absence of a warningfor a given drug or drug combination in no way should be construed to indicate that the drug or drug combination is safe, effective or appropriate for any given patient. [facility] does not assume any responsibility for any aspect of healthcare administered with the aid of information [email or web address] provides. The information contained herein is not intended to cover all possible uses, directions, precautions, warnings, drug interactions, allergic reactions, or adverse effects. If you have questions about the drugs you are taking, check with your doctor, nurse or pharmacist. Copyright 9510-7607 [facility] [employer]. Version: 10.. Revision Date: 01/29/2019. azithromycin (oral/injection) (a ASIAPENNY APARICIOE sin) Azithromycin 3 Day Dose Pack, Azithromycin 5 Day Dose Pack, Zithromax, Zithromax IV, Zithromax TRI-MAURIZIO, Zithromax Z-Maurizio What is the most important information I should know about azithromycin? You should not use azithromycin if you have ever had an allergic reaction, jaundice, or liver problems while taking this medicine. You should not use azithromycin if you have ever had a severe allergic reaction to similar drugs such as clarithromycin, erythromycin, or telithromycin. What is azithromycin? Azithromycin is used to treat many different types of infections caused by bacteria, including infections of the lungs, sinus, throat, tonsils, skin, urinary tract, cervix, or genitals. Azithromycin may also be used for purposes not listed in this medication guide. What should I discuss with my healthcare provider before using azithromycin? You should not use azithromycin if you are allergic to it, or if you have ever had: jaundice or liver problems caused by taking azithromycin; or a severe allergic reaction to similar drugs such as clarithromycin, erythromycin, or telithromycin. Azithromycin oral should not be used to treat pneumonia in people who have: cystic fibrosis; an infection after being in a hospital; an infection in the blood; a weak immune system (caused by diseases such as HIV/AIDS or cancer); or in older adults and those who are ill or debilitated. Tell your doctor if you have ever had: pneumonia; liver or kidney disease; myasthenia gravis; low levels of potassium in your blood; a heart rhythm disorder; or long QT syndrome (in you or a family member). It is not known whether this medicine is effective in treating genital ulcers in women. Tell your doctor if you are or . Taking azithromycin while may cause diarrhea, vomiting, or rash in the nursing baby. Azithromycin is not approved for use by anyone younger than 6 months old. Azithromycin should not be used to treat a throat or tonsil infection in a child younger than 2 years old. How should I take azithromycin? Follow all directions on your prescription label and read all medication guides or instruction sheets. Use the medicine exactly as directed. Azithromycin oral is taken by mouth. Azithromycin injection is given as an infusion into a vein, usually for 2 days before you switch to azithromycin oral. A healthcare provider will give you this injection. You may take azithromycin oral with or without food. Shake the oral suspension (liquid) before you measure a dose. Use the dosing syringe provided, or use a medicine dose-measuring device (not a kitchen spoon). Use this medicine for the full prescribed length of time, even if your symptoms quickly improve. Skipping doses can increase your risk of infection that is resistant to medication. Azithromycin will not treat a viral infection such as the flu or a common cold. Store at room temperature away from moisture and heat. Throw away any unused liquid medicine after 10 days. What happens if I miss a dose? Take the medicine as soon as you can, but skip the missed dose if it is almost time for your next dose. Do not take two doses at one time. What happens if I overdose? Seek emergency medical attention or call the Poison Help line at . What should I avoid while taking azithromycin? Antibiotic medicines can cause diarrhea, which may be a sign of a new infection. If you have diarrhea that is watery or bloody, call your doctor before using anti-diarrhea medicine. Azithromycin could make you sunburn more easily. Avoid sunlight or tanning beds. Wear protective clothing and use sunscreen (SPF 30 or higher) when you are outdoors. What are the possible side effects of azithromycin? Get emergency medical help if you have signs of an allergic reaction (hives, difficult breathing, swelling in your face or throat) or a severe skin reaction (fever, sore throat, burning in your eyes,skin pain, red or purple skin rash that spreads and causes blistering and peeling). Seek medical treatment if you have a serious drug reaction that can affect many parts of your body.Symptoms may include: skin rash, fever, swollen glands, muscle aches, severe weakness, unusual bruising, or yellowing of your skin or eyes. Call your doctor at once if you have: severe stomach pain, diarrhea that is watery or bloody; fast or pounding heartbeats, fluttering in your chest, shortness of breath, and sudden dizziness (like you might pass out); or liver problems--nausea, vomiting, loss of appetite, stomach pain (upper right side), tiredness, itching, dark urine, ayaz-colored stools, jaundice (yellowing of the skin or eyes); Call your doctor right away if a baby taking azithromycin becomes irritable or vomits while eating or nursing. Older adults may be more likely to have side effects on heart rhythm, including a life-threatening fast heart rate. Common side effects may include: nausea, vomiting; or stomach pain. This is not a complete list of side effects and others may occur. Call your doctor for medical advice about side effects. You may report side effects to FDA at 1-250-PJC-6507. What other drugs will affect azithromycin? Tell your doctor about all your other medicines, especially: colchicine; digoxin; nelfinavir; phenytoin; an antacid that contains aluminum or magnesium--Acid Gone, Gaviscon, Gelusil, Maalox, Milk of Magnesia, Mylanta, Pepcid Complete, Rolaids, Rulox, and others; or a blood thinner--warfarin, Coumadin, Jantoven. This list is not complete. Other drugs may affect azithromycin, including prescription and irjb-jyx-dynjraw medicines, vitamins, and herbal products. Not all possible drug interactions are listed here. Where can I get more information? Your pharmacist can provide more information about azithromycin. Remember, keep this and all other medicines out of the reach of children, never share your medicines with others, and use this medication only for the indication prescribed. Every effort has been made to ensure that the information provided by [employer] is accurate, up-to-date, and complete, but no guarantee is made to that effect. Drug information contained herein may be time sensitive. [employer] information has been compiled for use by healthcare practitioners and consumers in the [place] and therefore [employer] does not warrant that uses outside of the [place] are appropriate, unless specifically indicated otherwise. [employer] drug information does not endorse drugs, diagnose patients or recommend therapy. [employer] drug information isan informational resource designed to assist licensed healthcare practitioners in caring for their p atients and/or to serve consumers viewing this service as a supplement to, and not a substitute for, the expertise, skill, knowledge and judgment of healthcare practitioners. The absence of a warningfor a given drug or drug combination in no way should be construed to indicate that the drug or drug combination is safe, effective or appropriate for any given patient. [employer] does not assume any responsibility for any aspect of healthcare administered with the aid of information [employer] provides. The information contained herein is not intended to cover all possible uses, directions, precautions, warnings, drug interactions, allergic reactions, or adverse effects. If you have questions about the drugs you are taking, check with your doctor, nurse or pharmacist. Copyright 5311-2437 [employer]. Version: 18.01. Revision Date: 03/05/2019. Education Materials COPD Flare You have had a flare-up of your COPD. COPD (chronic obstructive pulmonary disease) is a common lung disease. It causes your airways to get irritated and narrower. This makes it harder for you to breathe. Emphysema and chronic bronchitis are both types of COPD. This is a long-term (chronic) condition. This means you always have it. Sometimes it gets worse. When this happens, it is called a flare-up. Symptoms of COPD People with COPD may have symptoms most of the time. In a flare-up, your symptoms get worse. These symptoms may mean you are having a flare-up: Shortness of breath, shallow or rapid breathing, or wheezing that gets worse Lung infection Cough that gets worse More mucus, thicker mucus or mucus of a different color Tiredness, less energy, or trouble doing your normal activities Fever Chest tightness Your symptoms don t get better even when you use your normal medicines, inhalers, and nebulizer Trouble talking You feel confused Causes of flare-ups Unfortunately, a flare-up can happen even if you did everything right. And even if you followed your healthcare provider s instructions. Some causes of flare- ups are: Smoking or secondhand smoke Colds, the flu, or respiratory infections Air pollution Sudden change in the weather Dust, irritating chemicals, or strong fumes Not taking your medicines as prescribed Home care Here are some things you can do at home to treat a flare-up: Try not to panic. This makes it harder to breathe, and keeps you from doing the right things. Don t smoke or be around others who are smoking. Try to drink more fluids than normal during a flare-up, unless your healthcare provider has told you not to because of heart and kidney problems. More fluids can help loosen the mucus. Use your inhalers and nebulizer, if you have one, as you have been told to. If you were given antibiotics, take them until they are used up or your provider tells you to stop.It s important to finish the antibiotics, even though you feel better. This will make sure the infection has cleared. If you were given prednisone or another steroid, finish it even if you feel better. Preventing a flare-up Flare-ups happen. But the best way to treat one is to prevent it before it starts. Here are some pointers: Don t smoke or be around others who are smoking. Take your medicines as discussed with your healthcare provider. Talk with your provider about getting a flu shot every year. Also find out if you need a pneumonia shot. If there is a weather advisory warning to stay indoors, try to stay inside when possible. Try to eat healthy, exercise, and get plenty of sleep. Try to stay away from things that normally set you off. These include dust, chemical fumes, hairsprays, or strong perfumes. Follow-up care Follow up with your healthcare provider, or as advised. If a culture was done, you will be told if your treatment needs to be changed. You can call as directed for the results. If X-rays were done, you will be told of any new findings that may affect your care. Call 911 Call 911 if any of these occur: You have trouble breathing You feel confused or it s hard to wake you up You faint or lose consciousness You have a rapid heart rate You have new pain in your chest, arm, shoulder, neck, or upper back When to seek medical advice Call your healthcare provider right away if any of these occur: Wheezing or shortness of breath gets worse You need to use your inhalers more often than normal without relief Fever of 100.4 F (38 C) or higher, or as directed by your healthcare provider Coughing up lots of dark-colored or bloody mucus (sputum) Chest pain with each breath You don't start to get better within 24 hours Swelling of your ankles gets worse Dizziness or weakness [id number] [employer]. [address] [place] [address], [place] [address]. All rights reserved. This information is not intended as a substitute for professional medical care. Always follow yourhealthcare professional's instructions. Additional Information VACCINATE! IT SAVES LIVES! Members of the community who have not yet received the COVID-19 vaccine and would like to receive it can visit one of [facility] vaccine clinics. There are many vaccine clinic locations within the [facility]. For locations and available times, please visit [email or web address] It is important to note that some COVID mobile vaccine clinics are held outdoors and may be canceled in rainy or stormy conditions. To learn more about pediatric vaccinations (ages 5-11), we invite you to visit the [facility] webpage. [email or web address] learn more about the COVID-19 vaccine, we invite you to visit the CDC website for a list of frequently asked questions. https://www.cdc.gov/coronavirus/2019-ncov/vaccines/faq.html [facility] Patient Portal Access Instructions: Stay connected with your healthcare team and access your personal medical information anytime with the [facility] Patient Portal. If you would like a full copy of your medical records please contact the [facility] Medical Records Department Saturday through Saturday between 8a.m. and 4:30p.m. Please follow the directions below to access the portal: 1.Access the email account you provided upon registration to the [facility].2.Look for an invitation email from [facility].3.Open the email and access the invitation link: Accept Invitation to [employer]4.Fill in the required dodge to create your account. Sign into [email or web address] with your username and password that you created in the above steps to stay up to date. You can then view a summary of results, a summary of your visits, and the ability to download your summaries to your computer or send the information securely to a physician. Remember that your healthcare information is confidential, so carefully consider who you will allow to register on the [facility] Patient Portal for access to your information. You can also access the [employer] Patient Portal on the [employer]. Simply click on Health Records under [employer] by [employer] and then click on the [employer] logo. HOW TO SAFELY DISPOSE OF PRESCRIPTION MEDICATIONS Please use one of the following methods to safely dispose of your unused medications. 1.Use a drug disposal kit: the drug disposal pouch allows you to safely discard your old and unuseddrugs. Ask your nurse to give you one when you are discharged.2.Visit a local take-back location: Many local pharmacies and police departments have programs that collect old and unwanted prescriptiondrugs. Call your local pharmacy or go to http://[email or web address]/[email or web address] to find one close to you.3.Make use of household items: Use cat litter or old coffee grounds to dispose medications if other options arenot available. Mix your drugs with these household products, seal them in an airtight container andthrow it into the garbage. Call [facility]: [phone] to be sure your drugs can be disposed of in this way. Some medicines may require a different approach.4.Never flush your medications down the toilet. IF YOU HAVE BEEN PRESCRIBED AN OPIOIDS FOR PAIN If you have been prescribed an opioid (such as hydrocodone, oxycodone or morphine), it is critical to understand the possible side effects and risks of opioid pain medications. Even when taken as directed, opioids can have several side effects including: Tolerance, meaning you might need to take more of a medication for the same pain relief. Nausea, vomiting and/or constipation. Sleepiness, dizziness, dry mouth, confusion, depression or itching. Physical dependence, meaning you have withdrawal symptoms when a medication is stopped ? this can develop within a few days. KNOW YOUR RESPONSIBILITIES It is important to know exactly how much and how often to take the opioid pain medications you are prescribed. Never take opioids in higher amounts or more often than prescribed. Do not combine opioids with alcohol or other drugs that cause drowsiness, such as benzodiazepines, also known as benzos,including diazepam and alprazolam, muscle relaxants or sleep aids. Never sell or share prescriptionopioids. This is illegal. Store opioids in a secure place and out of reach of others (including children, family, friends and visitors). The last page(s) of this document has been signed and retained as a CHART COPY Signatures Patient Education Materials COPD Flare Medication Leaflets prednisone, azithromycin (oral/injection) My discharge plan and instructions have been reviewed and explained to me and I,VERO [employer] understand my current condition and have read and understand these discharge instructions. I have received a written copy of the plan/instructions. If I have questions, I am aware that I should contact my doctor. 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 The following is importantdischarge information regarding your hospital visit. Diagnosis from Today's Visit COPD - Chronic obstructive pulmonary disease Acute exacerbation of COPD SOB - Shortness of breath What to Do Next Instructions from Your Care Team No qualifying data available. Post Acute Orders No qualifying data available. You Need to Schedule the Following Appointments Follow Up with [facility] When Within 2-4 days Where: [address] [place] [address] [phone] Allergies NKA Medications Please ask your primary doctor or pharmacist before taking any other medication not listed, including over the counter drugs, herbal medications, vitamins and or supplements as they may interact withyour home medications. What How Much When Why Instructions Last Dose New azithromycin (Azithromycin 5 Day Dose Pack 250 mgoral tablet) 1 dose by mouth Every day COPD - Chronic obstructive pulmonary disease Acute exacerbation of COPD Duration: 5 Days Pickup at [id number] New predniSONE (prednisone 20mg tab (TAPER)) Taper 60-40-20 mg x 3 days each dose by mouth Every day COPD - Chronic obstructive pulmonary disease Acute exacerbation of COPD Duration: 9 Days Pickup at [facility] #[id number] Unchanged acetaminophen-HYDROcodone (Warwick 325- 5 mg oral tablet) 1 tab(s) by mouth Every 6 hours Unchanged acetaminophen-HYDROcodone (Warwick 325- 5 mg oral tablet) 1 tab(s) by mouth Every 6 hours Unchanged albuterol 2 puffs q 4-6 h prn sob Unchanged buprenorphine-naloxone (Suboxone 8 mg-2 mg sublingual film) 1 Each under the tongue Two (2) times a day Unchanged gabapentin 800 Milligram by mouth Four (4) times a day Unchanged LORazepam (LORazepam 0.5 mg oral tablet) 1 tab(s) by mouth Two (2) times a day Unchanged Misc Medication 1 tablet by mouth Daily at bedtime Unchanged Misc Medication (anxiety med) 2 tablets by mouth Daily at bedtime Pharmacy Information [facility] #[id number]: [address], [place] [phone] Please take this list to your next doctor s visit. Bring all medications you take, including over the counter medications, herbals and other supplements with you to your doctor s visit. Patients and families are reminded to discard old lists and to update any records with all medication providers or retail pharmacies. Education Materials COPD Flare You have had a flare-up of your COPD. COPD (chronic obstructive pulmonary disease) is a common lung disease. It causes your airways to get irritated and narrower. This makes it harder for you to breathe. Emphysema and chronic bronchitis are both types of COPD. This is a long-term (chronic) condition. This means you always have it. Sometimes it gets worse. When this happens, it is called a flare-up. Symptoms of COPD People with COPD may have symptoms most of the time. In a flare-up, your symptoms get worse. These symptoms may mean you are having a flare-up: Shortness of breath, shallow or rapid breathing, or wheezing that gets worse Lung infection Cough that gets worse More mucus, thicker mucus or mucus of a different color Tiredness, less energy, or trouble doing your normal activities Fever Chest tightness Your symptoms don t get better even when you use your normal medicines, inhalers, and nebulizer Trouble talking You feel confused Causes of flare-ups Unfortunately, a flare-up can happen even if you did everything right. And even if you followed your healthcare provider s instructions. Some causes of flare- ups are: Smoking or secondhand smoke Colds, the flu, or respiratory infections Air pollution Sudden change in the weather Dust, irritating chemicals, or strong fumes Not taking your medicines as prescribed Home care Here are some things you can do at home to treat a flare-up: Try not to panic. This makes it harder to breathe, and keeps you from doing the right things. Don t smoke or be around others who are smoking. Try to drink more fluids than normal during a flare-up, unless your healthcare provider has told you not to because of heart and kidney problems. More fluids can help loosen the mucus. Use your inhalers and nebulizer, if you have one, as you have been told to. If you were given antibiotics, take them until they are used up or your provider tells you to stop.It s important to finish the antibiotics, even though you feel better. This will make sure the infection has cleared. If you were given prednisone or another steroid, finish it even if you feel better. Preventing a flare-up Flare-ups happen. But the best way to treat one is to prevent it before it starts. Here are some pointers: Don t smoke or be around others who are smoking. Take your medicines as discussed with your healthcare provider. Talk with your provider about getting a flu shot every year. Also find out if you need a pneumonia shot. If there is a weather advisory warning to stay indoors, try to stay inside when possible. Try to eat healthy, exercise, and get plenty of sleep. Try to stay away from things that normally set you off. These include dust, chemical fumes, hairsprays, or strong perfumes. Follow-up care Follow up with your healthcare provider, or as advised. If a culture was done, you will be told if your treatment needs to be changed. You can call as directed for the results. If X-rays were done, you will be told of any new findings that may affect your care. Call 911 Call 911 if any of these occur: You have trouble breathing You feel confused or it s hard to wake you up You faint or lose consciousness You have a rapid heart rate You have new pain in your chest, arm, shoulder, neck, or upper back When to seek medical advice Call your healthcare provider right away if any of these occur: Wheezing or shortness of breath gets worse You need to use your inhalers more often than normal without relief Fever of 100.4 F (38 C) or higher, or as directed by your healthcare provider Coughing up lots of dark-colored or bloody mucus (sputum) Chest pain with each breath You don't start to get better within 24 hours Swelling of your ankles gets worse Dizziness or weakness [phone] [employer]. [address] [place] [address]. All rights reserved. This information is not intended as a substitute for professional medical care. Always follow yourhealthcare professional's instructions. Additional Information VACCINATE! IT SAVES LIVES! Members of the community who have not yet received the COVID-19 vaccine and would like to receive it can visit one of [facility] vaccine clinics. There are many vaccine clinic locations within the [facility]. For locations and available times, please visit www.[email or web address].[place].gov/. It is important to note that some COVID mobile vaccine clinics are held outdoors and may be canceled in rainy or stormy conditions. To learn more about pediatric vaccinations (ages 5-11), we invite you to visit the [facility] webpage. https://www.[email or web address].org/pages/8210-Lbqwg-Rtswxgczdow-Sszuruzkmn-Eokms-Vmq stions.htmlTo learn more about the COVID-19 vaccine, we invite you to visit the CDC website for a list of frequently asked questions. https://www.cdc.gov/coronavirus/2019-ncov/vaccines/faq.html [facility] Patient Portal Access Instructions: Stay connected with your healthcare team and access your personal medical information anytime with the [employer] Patient Portal. If you would like a full copy of your medical records please contact the [facility] Medical Records Department Saturday through Saturday between 8a.m. and 4:30p.m. Please follow the directions below to access the portal: 1.Access the email account you provided upon registration to the [facility].2.Look for an invitation email from [facility].3.Open the email and access the invitation link: Accept Invitation to [facility]4.Fill in the required dodge to create your account. Sign into [email or web address] with your username and password that you created in the above steps to stay up to date. You can then view a summary of results, a summary of your visits, and the ability to download your summaries to your computer or send the information securely to a physician. Remember that your healthcare information is confidential, so carefully consider who you will allow to register on the [employer] Patient Portal for access to your information. You can also access the [facility] Patient Portal on the [employer]. Simply click on Health Records under e[employer]ruction by [employer] and then click on the [employer] logo. HOW TO SAFELY DISPOSE OF PRESCRIPTION MEDICATIONS Please use one of the following methods to safely dispose of your unused medications. 1.Use a drug disposal kit: the drug disposal pouch allows you to safely discard your old and unuseddrugs. Ask your nurse to give you one when you are discharged.2.Visit a local take-back location: Many local pharmacies and police departments have programs that collect old and unwanted prescriptiondrugs. Call your local pharmacy or go to http://Machinima.Yoozon/9U0Cd0l to find one close to you.3.Make use of household items: Use cat litter or old coffee grounds to dispose medications if other options arenot available. Mix your drugs with these household products, seal them in an airtight container andthrow it into the garbage. Call [facility]: [phone] to be sure your drugs can be disposed of in this way. Some medicines may require a different approach.4.Never flush your medications down the toilet. IF YOU HAVE BEEN PRESCRIBED AN OPIOIDS FOR PAIN If you have been prescribed an opioid (such as hydrocodone, oxycodone or morphine), it is critical to understand the possible side effects and risks of opioid pain medications. Even when taken as directed, opioids can have several side effects including: Tolerance, meaning you might need to take more of a medication for the same pain relief. Nausea, vomiting and/or constipation. Sleepiness, dizziness, dry mouth, confusion, depression or itching. Physical dependence, meaning you have withdrawal symptoms when a medication is stopped ? this can develop within a few days. KNOW YOUR RESPONSIBILITIES It is important to know exactly how much and how often to take the opioid pain medications you are prescribed. Never take opioids in higher amounts or more often than prescribed. Do not combine opioids with alcohol or other drugs that cause drowsiness, such as benzodiazepines, also known as benzos,including diazepam and alprazolam, muscle relaxants or sleep aids. Never sell or share prescriptionopioids. This is illegal. Store opioids in a secure place and out of reach of others (including children, family, friends and visitors). The last page(s) of this document has been signed and retained as a CHART COPY Signatures Patient Education Materials COPD Flare Medication Leaflets My discharge plan and instructions have been reviewed and explained to me and IJENI BRENDA J understand my current condition and have read and understand these discharge instructions. I have received a written copy of the plan/instructions. If I have questions, I am aware that I should contact my doctor. 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 Costophrenic angles are sharp. No pneumothorax. Diffuse haziness throughout the lungs with superimposed opacities. Osseous structures unremarkable. IMPRESSION: Diffuse haziness throughout the lungs with superimposed opacities which is nonspecific although correlate for edema or infection and follow-up to resolution. Interpreted by: Vic Hector Preliminary Report By: Vic Hector Electronically signed By Vic Hector Dictated Date: 03/14/2023 7:21:03 PM Prelim Date: 03/14/2023 7:21:52 PM Sign Date: 03/14/2023 7:21:52 PM Ordering Provider: MAYI [facility]05-11-2023 Note ORIGINAL EXAMINATION: ONE XRAY VIEW OF THE CHEST 03/14/2023 7:18 pm COMPARISON: Radiograph of the chest April 05, 2019 HISTORY: ORDERING SYSTEM PROVIDED HISTORY: Reason for Exam: SOB/cough/fever FINDINGS: Cardiomediastinal silhouette is normal in size. Costophrenic angles are sharp. No pneumothorax. Diffuse haziness throughout the lungs with superimposed opacities. Osseous structures unremarkable. IMPRESSION: Diffuse haziness throughout the lungs with superimposed opacities which is nonspecific although correlate for edema or infection and follow-up to resolution. Interpreted by: Vic Hector Preliminary Report By: Vic Hector Electronically signed By Vic Hector Dictated Date: 03/14/2023 7:21:03 PM Prelim Date: 03/14/2023 7:21:52 PM Sign Date: 03/14/2023 7:21:52 PM Ordering Provider: MAYI [facility]05-11-2023 SARS-CoV-2 (COVID-19) RNA IAN+probe Ql (Nph)Negative *NA* (03/14/23 6:11 PM)AO Auto Urine SSEvaluation + Plan note No data available for this section [facility] Evaluation + Plan note Future Appointments Appointment Date:02/12/2024 04:00:00 PM Scheduled Provider:JULIO CESAR JACOBS DO Location:[facility] Appointment Type:PC OV Future Scheduled Tests Laboratory* HCV RT-PCR, Quant (Non-Graph) 11/20/23 * Antinuclear Antibody Screen, Serum 11/20/23 * Ferritin 11/20/23 * Thyroid Antibodies 11/20/23 * Thyroid Stimulating Hormone 11/20/23 * Free T4 11/20/23 * Vitamin B12 Level 11/20/23 * A1C Hemoglobin 11/20/23 * Complete Blood Count 11/20/23 * CRP, High Sensitive 11/20/23 * Lipid Profile 11/20/23 * Hepatitis C Antibody IgG 11/20/23 * Iron Studies 11/20/23 * Sedimentation Rate Automated 11/20/23 * Total T3 11/20/23 * Vitamin D Level 11/20/23 * Complete Metabolic Panel 11/20/23 Radiology* XR Chest 2 Views (PA & Lateral) 05/06/23 * XR Hip 3-4 Views Bilateral 11/20/23 [facility] Evaluation + Plan note Future Appointments Appointment Date:02/26/2024 10:30:00 AM Scheduled Provider:JULIO CESAR JACOBS DO Location:[facility] Appointment Type:PC OV Appointment Date:05/15/2024 02:30:00 PM Scheduled Provider:JULIO CESAR JACOBS DO Location:[facility] Appointment Type:PC OV Future Scheduled Tests Radiology* XR Chest 2 Views (PA & Lateral) 05/06/23 * XR Hip 3-4 Views Bilateral 11/20/23 * IR Thyroid Biopsy 02/11/24 [facility] Evaluation + Plan note Future Appointments Appointment Date:06/08/2024 02:15:00 PM Scheduled Provider: Location:[facility] Appointment Type:PC Nurse Lab Appointment Date:06/15/2024 03:00:00 PM Scheduled Provider:JULIO CESAR JACOBS DO Location:[facility] Appointment Type:PC OV Future Scheduled Tests Laboratory* LDL Cholesterol (Direct) 03/13/24 * Lipid Profile 03/13/24 * Complete Metabolic Panel 03/13/24 Radiology* MA Mammo Screening Bilateral w/ Beny 03/13/24 * XR Hip 3-4 Views Bilateral 11/20/23 * IR Thyroid Biopsy 02/11/24 [facility] Evaluation + Plan note Future Appointments Appointment Date:05/29/2024 09:00:00 AM Scheduled Provider:JULIO CESAR JACOBS DO Location:[facility] Appointment Type:PC OV ED Follow Up Appointment Date:06/08/2024 02:15:00 PM Scheduled Provider: Location:[facility] Appointment Type:PC Nurse Lab Appointment Date:06/15/2024 03:00:00 PM Scheduled Provider:JULIO CESAR JACOBS DO Location:[facility] Appointment Type:PC OV Future Scheduled Tests Laboratory* LDL Cholesterol (Direct) 03/13/24 * Lipid Profile 03/13/24 * Complete Metabolic Panel 03/13/24 Radiology* MA Mammo Screening Bilateral w/ Beny 03/13/24 * XR Hip 3-4 Views Bilateral 11/20/23 * IR Thyroid Biopsy 02/11/24 [facility] evaluation + Plan note Future Appointments Appointment Date:11/25/2024 02:00:00 PM Scheduled Provider: Location:[facility] Appointment Type:MA Mammogram Screening Bilateral w/ Beny Appointment Date:12/11/2024 11:45:00 AM Scheduled Provider:JULIO CESAR JACOBS DO Location:[facility] Appointment Type: OV Future Scheduled Tests Radiology* CT Low Dose Lung Cancer Screening (LDCT) 08/26/24 * MA Mammo Screening Bilateral w/ Beny 11/25/24 [facility] evaluation + Plan note Future Appointments Appointment Date:04/27/2025 01:45:00 PM Scheduled Provider:JULIO CESAR JACOBS DO Location:[facility] Appointment Type:PC OV Diagnostic Tests Pending * HCV RT-PCR, Quant (Non-Graph) 04/20/25 Future Scheduled Tests Radiology* CT Low Dose Lung Cancer Screening (LDCT) 12/09/24 * MA Mammo Screening Bilateral w/ Beny 12/11/24 * BD Bone Density DEXA Axial Skeleton Adult (21 yrs or older) 01/22/25 * US Abdomen Limited 03/16/25 * US Abdomen Limited 04/20/25 * XR Knee 3 Views Left 04/20/25 * US Thyroid 03/16/25 [facility] Evaluation noteNo assessment information available [facility] Work Phone: Evaluation note* Diagnosis Onset Date Resolution Status Anxiety chronic COPD (chronic obstructive pulmonary disease) chronic Nicotine abuse chronic [facility] Work Phone: Evaluation note* Diagnosis Onset Date Resolution Status Multiple thyroid nodules acu te [facility] Work Phone: Hospital Discharge instructions No data available for this section [facility] Hospital Discharge instructions Additional Instructions For overdose now back to normal. Suspect opiate related. Questionable pneumonia on x-ray. You are stable on her 2 L oxygen. Take antibiotic as prescribed. Head CT negative. Follow-up with your doctor. Symptoms clinically worsens or worsening breathing issues, return to the ED for reevaluation.[facility] Work Phone: Progress note No data available for this section [facility] Summary Purpose Family History No Family History Records Found Relationship Condition Age at Onset Recorded Date/T sathish mother Coronary artery disease Unknown Unknown Hypertension Unknown Cardiac disease Unknown sister Coronary artery disease Unknown Diabetes mellitus Unknown father Diabetes mellitus Unknown Advance Directives No Advanced Directives Records Found Advance Directive Response Recorded Date/ Time Living Will No October 17, 021 10:01am Power of Mine Production Engineer No October 17, 2021 10:01am Advance Directive Response Recorded Date/ Time Living Will No October 17, 021 9:01am Power of Mine Production Engineer No October 17, 2021 9:01am Advance Directive Response Recorded Date/ Time Living Will No January 14, 2024 2:56pm Power of Mine Production Engineer No January 13 2:56pm Chief Complaint and Reason for Visit Chief Complaint SCREENING Chief Complaint SCREENING [facility] Reason for Visit Anxiety COPD (chronic obstructive pulmonary disease) Nicotine abuse Chief Complaint LEGAL BLOOD DRAW OVERDOSE Chief Complaint LEGAL BLOOD DRAW OVERDOSE THYROID NODULE THYROID NODULES Reason for Visit Multiple thyroid nod ules Additional Source Comments INFORMATION SOURCE (unrecogn ized section and content) DATE CREATED AUTHOR 05/25/2018 Nadir Arreola [facility] DATE CREATED AUTHOR AUTHOR'S ORGANIZ ATION 03/17/2024 [facility] DATE CREATED AUTHOR AUTHOR'S ORGANIZ ATION 06/29/2024 [facility] ([place]) DATE CREATED AUTHOR AUTHOR'S ORGANIZ ATION 03/16/2025 [facility] DATE CREATED AUTHOR AUTHOR'S ORGANIZ ATION 05/29/2025 [facility] Source Comments (unrecognize d section and content) In the event this informatio n is protected by the Federal Confidentiality of Alcohol and Drug Abuse Patient Records regulations: The Federal rules restrict any use of the information to criminally investigate or prosecute any alcohol or drug abuse patient.[facility] the event this information is protected by the Federal Confidentiality of Alcohol and Drug Abuse Patient Records regulations: The Federal rules restrict any use of the information to criminally investigate or prosecute any alcohol or drug abuse patient.[facility] Reason for Visit (unrecogniz ed section and content) Reason Onset Date Comments Refill Request 05/24/2015 Reason Comments Refill Request Goals (unrecognized section and content) Goals may be documented in a n alternate sectionGoals may be documented in an alternate sectionGoals may be documented in an alternate sectionGoals may be documented in an alternate section No data available for this sectionGoals may be documented in an alternate section No data available for this sectionGoals may be documented in an alternate sectionGoals may be documented in an alternate section No data available for this section No data available for this sectionGoals may be documented in an alternate section No data available for this section No data available for this section No data available for this section No data available for this section No data available for this section No data available for this section No data available for this section No data available for this section No data available for this section No data available for this section No data available for this section Care Teams (unrecognized sec tion and content) Team Status: Active Member Role Status Dates Dr. Andry Beatty MD Family Provider Active Dr. Andry Beatty MD Primary Care Provider Active Team Status: Inactive Member Role Status Dates Dr. Andry Beatty MD Primary Care Provider Active Dr. Wilfredo Gross MD Attending Provider, Referring Provider Active Team Status: Inactive Member Role Status Dates Dr. Andry Beatty MD Primary Care Provi sam, Attending Provider, Referring Provider Active Team Status: Inactive Member Role Status Dates Dr. Andry Beatty MD Primary Care Provider, Referring Provider Active Sangita Michelle HOUSE CALLS NURSE PRACTITIONER, HOUSE CALLS NURSE PRACTITIONER-C Attending Provider Active Team Status: Inactive Member Role Status Dates Dr. Andry Beatty MD Primary Care Provider Active Sangita Michelle HOUSE CALLS NURSE PRACTITIONER, HOUSE CALLS NURSE PRACTITIONER-C Attending Provider, Referrin g Provider Active Team Status: Active Member Role Status Dates Dr. Andry Beatty MD Family Provider Active Sammy Zabala HOUSE CALLS NURSE PRACTITIONER, HOUSE CALLS NURSE PRACTITIONER-C Primary Care Provider Active Team Status: Active Member Role Status Dates Sammy Zabala HOUSE CALLS NURSE PRACTITIONER, HOUSE CALLS NURSE PRACTITIONER-C Primary Care Provider Active Ed Physician Provider Attending Provider Active Team Status: Inactive Member Role Status Dates Sammy Zabala HOUSE CALLS NURSE PRACTITIONER, HOUSE CALLS NURSE PRACTITIONER-C Primary Care Provider Active Dr. Sixto Holloway DO Emergency Provider Active Team Status: Active Member Role Status Dates Dr. Andry Beatty MD Family Provider Active Dr. Julio Cesar Jacobs DO Primary Care Provider Active Team Status: Inactive Member Role Status Dates Sammy Zabala HOUSE CALLS NURSE PRACTITIONER, HOUSE CALLS NURSE PRACTITIONER-C Referring Provider Active Dr. Kia Guallpa MD Attending Provider Active Dr. Julio Cesar Jacobs DO Primary Care Provider Active Team Status: Inactive Member Role Status Dates Sammy Zabala HOUSE CALLS NURSE PRACTITIONER, HOUSE CALLS NURSE PRACTITIONER-C Primary Care Provider Active Dr. Sixto Holloway DO Attending Provider, Emergency Provide r Active Team Status: Inactive Member Role Status Dates Dr. Julio Cesar Jacobs DO Primary Care Provider Active Dr. Kia Guallpa MD Attending Provider, Referring Provider Active FOR RECORDS PERTAINING TO PATIENTS WHO ARE OR HAVE BEEN ENROLLED IN A CHEMICAL DEPENDENCY/SUBSTANCEABUSE PROGRAM, SOME INFORMATION MAY BE OMITTED. This clinical summary was aggregated from multiple sources. Caution should be exercised in using it in the provision of clinical care. This summary normalizes information from multiple sources, and as a consequence, information in this document may materially change the coding, format and clinical context of patient data. In addition, data may be omitted in some cases. CLINICAL DECISIONS SHOULD BE BASED ON THE PRIMARY CLINICAL RECORDS. [facility] [employer] [facility]. provides no warranty or guarantee of the accuracy or completeness of information in this document.
[2025-10-28 19:55] VITALS: BP 101/77; PULSE 90; RESP 18; TEMP 36.6; O2SAT 94
== END 2025-10-28 19:57 | disposition home or self-care (01) ==
PROVIDERS: Emergency Provider Emergency Medicine; Visit Provider Emergency Medicine
DX: H57.11 Ocular pain, right eye (principal); J43.9 Emphysema, unspecified; I25.10 Atherosclerotic heart disease of native coronary artery without angina pectoris; H40.9 Unspecified glaucoma; I10 Essential (primary) hypertension; E78.5 Hyperlipidemia, unspecified; H93.90 Unspecified disorder of ear, unspecified ear; F17.210 Nicotine dependence, cigarettes, uncomplicated; Z79.899 Other long term (current) drug therapy
CPT/HCPCS: 99283